=== PATIENT | male | born 1955 | race Caucasian/White ===

== ENCOUNTER → 2018-04-01 13:07 | Outpatient (CLI) | payer MEDICARE, MEDICAID, SELFPAY ==
[2018-04-01 15:02] LABS: Prostate Specific Antigen < 0.064 ng/mL (0.10-4.00); Testosterone 28.6 ng/dL (71.8-623)
== END ==
PROVIDERS: PCP Family Medicine; Visit Provider Physician Assistant
DX: C61 Malignant neoplasm of prostate (principal)
CPT/HCPCS: 36415; 84153; 84403

== ENCOUNTER → 2018-06-23 15:43 | Outpatient (CLI) | payer MEDICARE, MEDICAID, SELFPAY ==
[2018-06-23 17:51] LABS: Prostate Specific Antigen < 0.064 ng/mL (0.10-4.00)
== END ==
PROVIDERS: PCP Family Medicine; Visit Provider Radiology Radiation Oncology
DX: C61 Malignant neoplasm of prostate (principal)
CPT/HCPCS: 36415; 84153

== ENCOUNTER → 2018-10-02 11:12 | Outpatient (CLI) | payer MEDICARE, MEDICAID, SELFPAY ==
[2018-10-02 13:19] LABS: Testosterone 33.6 ng/dL (71.8-623)
[2018-10-02 13:21] LABS: Prostate Specific Antigen < 0.064 ng/mL (0.10-4.00)
== END ==
PROVIDERS: PCP Family Medicine; Visit Provider Physician Assistant
DX: C61 Malignant neoplasm of prostate (principal)
CPT/HCPCS: 36415; 84153; 84403

== ENCOUNTER → 2019-05-02 13:31 | Outpatient (CLI) | payer MEDICARE, MEDICAID, SELFPAY ==
[2019-05-02 14:34] LABS: Prostate Specific Antigen < 0.064 ng/mL (0.10-4.00)
== END ==
PROVIDERS: PCP Family Medicine; Visit Provider Urology
DX: C61 Malignant neoplasm of prostate (principal)
CPT/HCPCS: 36415; 84153

== ENCOUNTER → 2019-12-09 11:20 | Outpatient (CLI) | payer MEDICARE, MEDICAID, SELFPAY ==
[2019-12-09 13:43] LABS: Prostate Specific Antigen < 0.064 ng/mL (0.10-4.00)
[2019-12-09 13:44] LABS: Testosterone 33.4 ng/dL (71.8-623)
== END ==
PROVIDERS: PCP Family Medicine; Referring Provider Urology; Visit Provider Urology
DX: C61 Malignant neoplasm of prostate (principal)
CPT/HCPCS: 36415; 84153; 84403

== ENCOUNTER → 2020-03-12 10:20 | Outpatient (CLI) | payer MEDICARE, MEDICAID, SELFPAY ==
--- NOTE | 2020-03-12 | DI.RAD.S_ITS ---
PROCEDURE: XR ABDOMEN 1V INDICATIONS: renal calculus TECHNIQUE: One view of the abdomen acquired. COMPARISON: None. FINDINGS: This is a markedly limited study due to patient body habitus. Surgical changes and devices: None. Bowel: Bowel gas pattern is normal. Soft tissues: No suspicious abdominal calcifications. Visualized solid organ contours appear normal in size. Bones: No suspicious bony lesions. IMPRESSION: Limited study. No acute intra-abdominal findings. Dictated by: Ania Almeida M.D. on 03/12/2020 at 12:02 Approved by: Ania Almeida M.D. on 03/12/2020 at 12:02
== END ==
PROVIDERS: PCP Family Medicine; Referring Provider Urology; Visit Provider Urology
DX: N20.0 Calculus of kidney (principal)
CPT/HCPCS: 74018

== ENCOUNTER → 2020-03-23 10:16 | Outpatient (CLI) | payer MEDICARE, MEDICAID, SELFPAY ==
[2020-03-23 12:56] LABS: Prostate Specific Antigen < 0.064 ng/mL (0.10-4.00)
== END ==
PROVIDERS: PCP Family Medicine; Referring Provider Urology; Visit Provider Urology
DX: C61 Malignant neoplasm of prostate (principal)
CPT/HCPCS: 36415; 84153

== ENCOUNTER → 2020-06-26 16:35 | Outpatient (CLI) | payer MEDICARE, MEDICAID, SELFPAY ==
[2020-06-26 17:42] LABS: Add Manual Diff / Slide Review NO; Basophils Absolute Auto 0 /uL (0-100); Basophils Percent Auto 0.6 % (0-2); Eosinophils Absolute Auto 100 /uL (0-450); Eosinophils Percent Auto 1.3 % (2-4); Hematocrit 38.6 % (41-53); Hemoglobin 12.6 g/dL (13.5-17.5); Lymphocytes Absolute Auto 700 /uL (1100-4500); Lymphocytes Percent Auto 12.8 % (25-40); Mean Corpuscular HGB Conc 32.8 % (30-36); Mean Corpuscular Volume 94.5 fL (80-100); Monocytes Absolute Auto 400 /uL (0-900); Monocytes Percent Auto 7.9 % (3-14); Neutrophils Absolute Auto 4300 /uL (1500-7000); Neutrophils Percent Auto 77.4 % (50-75); Platelet Count 69 X10^3/uL (150-400); Red Blood Cell Count 4.09 X10^6/uL (4.5-5.9); Red Cell Distribution Width 16.7 % (11.6-14.8); White Blood Cell Count 5.5 X10^3/uL (4.5-11.0)
[2020-06-26 17:53] LABS: Alanine Aminotransferase 47 IU/L (<50); Albumin 4.2 g/dL (3.5-5.0); Albumin Globulin Ratio 1.2 (1.0-2.8); Alkaline Phosphatase 92 U/L (38-126); Aspartate Aminotransferase 47 IU/L (17-59); BUN Creatinine Ratio 12.3 (6-22); Bilirubin Total 1.3 mg/dL (0.2-1.3); Blood Urea Nitrogen 10 mg/dL (9-20); Calcium 9.9 mg/dL (8.4-10.2); Carbon Dioxide 30 mmol/L (22-32); Chloride 98 mmol/L (98-107); Cholesterol 199 mg/dL (140-199); Estimated Glomerular Filt Rate > 60.0 mL/min (>60); Globulin 3.4 g/dL (1.7-4.1); Glucose 108 mg/dL (80-110); HDL Cholesterol 37 mg/dL (40-60); HEMOLYSIS < 15 (0-50); LDL Cholesterol Calculated 145 mg/dL (<100); Lipase 71 U/L (23-300); Potassium 4.3 mmol/L (3.4-5.1); Sodium 137 mmol/L (137-145); Total Protein 7.6 g/dL (6.3-8.2); Triglycerides 86 mg/dL (35-150)
== END ==
PROVIDERS: PCP Internal Medicine; Referring Provider Internal Medicine; Visit Provider Internal Medicine
DX: I87.2 Venous insufficiency (chronic) (peripheral) (principal); J98.4 Other disorders of lung; Z13.1 Encounter for screening for diabetes mellitus; Z13.220 Encounter for screening for lipoid disorders; Z13.6 Encounter for screening for cardiovascular disorders; G62.9 Polyneuropathy, unspecified; E66.01 Morbid (severe) obesity due to excess calories
CPT/HCPCS: 36415; 80053; 80061; 83690; 84443; 85025

== ENCOUNTER → 2020-11-02 11:31 | Outpatient (CLI) | payer MEDICARE, MEDICAID, SELFPAY ==
[2020-11-02 13:04] LABS: Prostate Specific Antigen < 0.064 ng/mL (0.10-4.00)
== END ==
PROVIDERS: PCP Internal Medicine; Referring Provider Urology; Visit Provider Urology
DX: C61 Malignant neoplasm of prostate (principal)
CPT/HCPCS: 36415; 84153

== ENCOUNTER → 2021-04-29 13:12 | Outpatient (CLI) | payer MEDICARE, MEDICAID, SELFPAY ==
[2021-04-29 14:57] LABS: Prostate Specific Antigen < 0.064 ng/mL (0.10-4.00)
== END ==
PROVIDERS: PCP Internal Medicine; Referring Provider Urology; Visit Provider Urology
DX: C61 Malignant neoplasm of prostate (principal)
CPT/HCPCS: 36415; 84153

== ENCOUNTER → 2021-11-29 09:47 | Outpatient (CLI) | payer MEDICARE, MEDICAID, SELFPAY ==
[2021-11-29 12:31] LABS: Prostate Specific Antigen < 0.064 ng/mL (0.10-4.00)
== END ==
PROVIDERS: PCP Internal Medicine; Referring Provider Urology; Visit Provider Urology
DX: C61 Malignant neoplasm of prostate (principal)
CPT/HCPCS: 36415; 84153

== ENCOUNTER 2022-01-10 08:00 | Inpatient (IN) | payer MEDICARE, MEDICAID, SELFPAY ==
[2022-01-10] VITALS (19 sets, daily range): BP systolic 132–176; BP diastolic 64–85; PULSE 84–110; RESP 18–26; TEMP 36.3–36.4; O2SAT 92–98; BMI 59.9; BMI 58.6
--- NOTE | 2022-01-10 08:31 | ED_ITS ---
HPI - Abdominal Pain General Chief Complaint: Abdominal Pain Stated Complaint: Believes kidney stone, blood in urine, leg problem Time Seen by Provider: 01/10/22 08:07 Source: patient Mode of arrival: Wheelchair History of Present Illness HPI narrative: 66-year-old male nonsmoker with history of chronic venous insufficiency, prostate cancer, gout, BMI 59 presents with his in the chief complaint of various symptoms over the past few days. He has right back and flank pain and thinks he likely passed a kidney stone a few days ago. On Thursday night and Thursday morning he had fever and shaking chills and since then he has been w eak and nauseated. He denies epigastric pain. He denies any obvious provocation or palliation. He states that he feels that his eyes are yellowing over the past few days, he has a prior history of a common bile duct issue which required an ERCP. He denies any significant pain now, nor any nausea or vomiting. He has no runny nose or sore throat. He denies any chest pain or shortness of breath that is more than his baseline. He denies any dietary change. Additionally he has had a small wound on his right anterior forde for the past few weeks, he denies any drainage, increased redness or pain. Related Data Home Medications Medication Instructions Recorded Confirmed doxazosin 8 mg tablet 8 mg PO BEDTIME tab 06/26/20 01/10/22 oxybutynin chloride 5 mg 5 mg PO BEDTIME tab 06/26/20 01/10/22 tablet,extended release 24 hr ropinirole 2 mg tablet 2 mg PO BEDTIME tab 06/26/20 01/10/22 trazodone 50 mg tablet 50 mg PO DAILY tab 06/26/20 01/10/22 Previous Rx's Medication Instructions Recorded Disabled Parking #1 each 06/26/20 Allergies Allergy/AdvReac Type Severity Reaction Status Date / Time No Known Allergies Allergy Uncoded 07/24/20 11:14 Review of Systems Review of Systems Narrative: GENERAL: See HPI HEENT: Denies sinus pain, ear pain, sore throat, difficulty swallowing, dizziness. RESPIRATORY: Denies dyspnea, cough, wheezing, hemoptysis, sputum. CARDIOVASCULAR: Denies chest pain, palpitations, orthopnea, edema, GASTROINTESTINAL: See HPI : See HPI MUSCULOSKELETAL: denies weakness, joint pain, or bony pain SKIN: Denies rash, skin lesions, or other NEUROLOGIC: Denies weakness, headache, numbness, change in speech, confusion, seizures, incoordination. PSYCHIATRIC: No concerning psychosocial issues. 12 point review of systems is negative except for those stated above Patient History Medical History Chronic venous insufficiency (04/10/16) Eczema (~1996) Frequent UTI (~2017) 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) History of kidney stones History of prostate cancer (~2016) Lower urinary tract symptoms Mixed hyperlipidemia Morbid obesity (08/16/15) Obstructive sleep apnea of adult (~2013) Pancreatitis (~1995) Phimosis Primary insomnia (08/16/15) Recurrent sinusitis (~2007) Restless leg syndrome (~2013) Restrictive lung disease (08/16/15) Tinnitus (~1972) Surgical History Anesthesia History of common bile duct surgery (~1997) Status post knee surgery (~1993) Family History Brother Prostate cancer Liver cancer Father Parkinson disease Grandfather Hepatitis Grandfather History of heart disease Grandmother Cancer Social History household members: none Smoking Status: Never smoker Smoking Status: Never smoker Substance Use Type: does not use Exam Narrative Exam Narrative: GENERAL: [66] year old patient appears stated age. Well-developed patient, in mild distress. HEAD: Atraumatic. Normocephalic. EYES: Pupils equal round and reactive. Extraocular motions intact. No scleral icterus. No injection or drainage. ENT: Nose without bleeding, purulent drainage. Throat without erythema, tonsillar hypertrophy or exudate. Airway patent. NECK: Trachea midline. Non tender CARDIOVASCULAR: Regular rate and rhythm without murmurs, gallops, or rubs. RESPIRATORY: Clear to auscultation. Breath sounds equal bilaterally. No wheezes, rales, or rhonchi. GASTROINTESTINAL: Abdomen soft, non-tender, mildly distended. EXTREMITIES: Minimal edema with evidence of chronic venous stasis, a small 2 x 1 cm poorly healing ulcer on the anterior of right forde, no surrounding erythema, no drainage. BACK: Nontender without deformity or crepitance. No flank tenderness. NEURO: AOx3. SKIN: No rash or erythema of visible areas Initial Vital Signs Initial Vital Signs: Vital Signs Temperature 97.5 F L 01/10/22 08:05 Pulse Rate 107 H 01/10/22 08:05 Respiratory Rate 24 01/10/22 08:05 Blood Pressure 176/85 H 01/10/22 08:05 Pulse Oximetry 93 01/10/22 08:05 Course Course Additional Information: discussed with general surgery here at [facility]. Not a clearly obstructive process without any obvious indication of need for transfer evidenced and labs, particularly given normal alk-phos, and imaging. call to GI physician sales correspondent, who also agrees that there is no obvious indication for transfer or need for an obvious intervention at this time. discussed with Dr. Goldstein who is happy to accept on his service. Orders Ordered: ED Orders 01/10/22 08:20 Acetaminophen Stat Complete Blood Count AUTO DIFF Stat Comprehensive Metabolic Panel Stat Ethanol (ETOH) Stat Lactate (Lactic Acid) Stat Lipase Stat Procalcitonin Stat Troponin & CK Cardiac Panel Stat 01/10/22 08:32 US abdomen limited Stat 01/10/22 08:41 EKG-12 Lead Stat 01/10/22 09:00 COVID19 -Nasal swab/Pre-Proc Stat 01/10/22 09:07 Ictotest Urine Stat Urinalysis and Microscopic Stat Urine Culture Stat 01/10/22 09:20 Blood Culture Stat 01/10/22 09:25 CT abdomen pelvis w con Stat 01/10/22 10:55 Hepatitis Acute Panel Stat Bisacodyl (Bisacodyl 10 Mg Supp) 10 mg MO DAILY PRN PRN Reason: Constipation Doxazosin Mesylate (Doxazosin 4 Mg Tablet) 8 mg PO BEDTIME CHHAYA Hydromorphone HCl (Hydromorphone 0.5 Mg Inj) 0.5 mg IV Q2H PRN PRN Reason: Pain, Moderate (4-6) Lactated Ringer's (Lactated Ringers) 1,000 mls @ 150 mls/hr IV CONT CHHAYA Last Admin: 01/10/22 13:51 Dose: 150 mls/hr Documented by: NELI Ceftriaxone Sodium 2,000 mg/ (Sodium Chloride) 100 mls @ 200 mls/hr IV Q24H CHHAYA Magnesium Hydroxide (Magnesium Hydroxide 30 Ml Udc) 30 ml PO DAILY PRN PRN Reason: Constipation Naloxone HCl (Naloxone 0.4 Mg/Ml Vial) 0.2 mg IV Q2MIN PRN PRN Reason: Opiate Reversal Ondansetron HCl (Ondansetron 4 Mg/2 Ml Inj) 4 mg IV Q8HR PRN PRN Reason: Nausea And Vomiting Oxybutynin Chloride (Oxybutynin 5 Mg Er Tab) 5 mg PO BEDTIME CHHAYA Oxycodone HCl (Oxycodone Ir 5 Mg Tablet) 5 mg PO Q4HR PRN PRN Reason: Pain, Moderate (4-6) Last Admin: 01/10/22 15:03 Dose: 5 mg Documented by: ANDREI Ropinirole HCl (Ropinirole 1 Mg Tablet) 2 mg PO BEDTIME CHHAYA Trazodone HCl (Trazodone 50 Mg Tablet) 50 mg PO BEDTIME CHHAYA Discontinued Medications Hydromorphone HCl (Hydromorphone 0.5 Mg Inj) 0.5 mg IV NOW ONE Stop: 01/10/22 11:30 Last Admin: 01/10/22 12:02 Dose: 0.5 mg Documented by: CARMELO Sodium Chloride (Normal Saline 0.9%) 2,052 mls @ 684 mls/hr 30 ml/kg infuse over 3 hr (2052 ml) IV NOW ONE Stop: 01/10/22 11:31 Last Infusion: 01/10/22 13:12 Dose: 0 mls/hr Documented by: Admin: 01/10/22 09:21 Dose: 684 mls/hr Documented by: GARRETT Ceftriaxone Sodium 2,000 mg/ (Sodium Chloride) 100 mls @ 200 mls/hr IV NOW ONE Stop: 01/10/22 08:33 Last Infusion: 01/10/22 10:19 Dose: 0 mls/hr Documented by: Admin: 01/10/22 09:20 Dose: 200 mls/hr Documented by: GARRETT Vital Signs Vital signs: Vital Signs - 8 hr 01/10/22 08:05 01/10/22 08:09 01/10/22 08:30 Temperature 97.5 F L Pulse Rate 107 H 109 H 106 H Respiratory Rate 24 24 Blood Pressure 176/85 H 176/85 H 160/72 H Pulse Oximetry 93 92 95 01/10/22 09:00 01/10/22 09:30 01/10/22 09:31 Temperature Pulse Rate 106 H 106 H 107 H Respiratory Rate 24 24 Blood Pressure 157/75 H 162/69 H Pulse Oximetry 94 93 93 01/10/22 10:00 01/10/22 10:30 01/10/22 11:00 Temperature Pulse Rate 106 H 105 H 105 H Respiratory Rate 22 22 22 Blood Pressure Pulse Oximetry 98 98 97 01/10/22 11:30 01/10/22 11:31 01/10/22 12:00 Temperature Pulse Rate 110 H 110 H 107 H Respiratory Rate 24 24 Blood Pressure 140/72 150/69 H Pulse Oximetry 97 96 97 MDM - Abdominal Pain Lab Data Result diagrams: 01/10/22 08:20 01/10/22 08:20 Labs: Lab Results 01/10/22 01/10/22 01/10/22 Range/Units 08:20 08:20 08:20 WBC 2.1 L (4.5-11.0) X10^3/uL RBC 3.60 L (4.5-5.9) X10^6/uL Hgb 11.2 L (13.5-17.5) g/dL Hct 33.7 L (41-53) % MCV 93.7 (80-100) fL MCH 31.0 (26-34) PG MCHC 33.1 (30-36) % RDW 18.5 H (11.6-14.8) % Plt Count TNP Neut % (Auto) Not Reportable Lymph % (Auto) Not Reportable [place] % (Auto) Not Reportable Eos % (Auto) Not Reportable Baso % (Auto) Not Reportable Lymph # (Auto) Not Reportable [place] # (Auto) Not Reportable Baso # (Auto) Not Reportable Total Counted 100 Seg Neutrophils % 44.0 (38-70) % Band Neutrophils % 22.0 H (3-7) % Lymphocytes % (Manual) 20.0 L (25-45) % Atypical Lymphs % 2.0 H ( - 0) % Monocytes % (Manual) 12.0 H (2-11) % Neutrophils # (Manual) 1386 L (4319-5311) /uL Dohle Bodies 1+ H Platelet Estimate Adequate on smear RBC Morphology See below Anisocytosis 1+ H Sodium 137 (137-145) mmol/L Potassium 3.4 (3.4-5.1) mmol/L Chloride 105 (98-107) mmol/L Carbon Dioxide 25 (22-32) mmol/L BUN 16 (9-20) mg/dL Creatinine 0.71 (0.66-1.25) mg/dL Estimated GFR > 60.0 (>60) mL/min BUN/Creatinine Ratio 22.5 H (6-22) Glucose 123 H (80-110) mg/dL Lactate (0.7-2.1) mmol/L Calcium 8.6 (8.4-10.2) mg/dL Total Bilirubin 5.4 H (0.2-1.3) mg/dL AST 86 H (17-59) IU/L ALT 57 H (<50) IU/L Alkaline Phosphatase 113 (38-126) U/L Total Creatine Kinase 165 (55-170) U/L CK-MB (CK-2) 1.58 (<2.37) ng/mL CK-MB (CK-2) Rel Index 1.0 L (1.5-5.0) % Troponin I 0.013 (0.01-0.034) ng/mL Total Protein 7.2 (6.3-8.2) g/dL Albumin 3.4 L (3.5-5.0) g/dL Globulin 3.8 (1.7-4.1) g/dL Albumin/Globulin Ratio 0.9 L (1.0-2.8) Lipase 93 (23-300) U/L Procalcitonin 3.13 H (<0.5) ng/mL Urine Color Urine Appearance Urine pH (4.5-8.0) Ur Specific [place] (1.000-1.035) Urine Protein (Negative) Urine Glucose (UA) (Negative) g/dL Urine Ketones (NEGATIVE) Urine Occult Blood (Negative) Urine Nitrate (Negative) Urine Bilirubin (NEGATIVE) Ur Bilirubin Confirm (Negative) Urine Urobilinogen (0.2) E.U./dL Ur Leukocyte Esterase (NEGATIVE) Urine RBC (0-5/HPF) Urine WBC (0-5/HPF) Amorphous [place] Urine Bacteria (None) Ur Culture Indicated? Acetaminophen (10-30) ug/mL Ethyl Alcohol ( - 10) mg/dL SARS-CoV-2 (PCR) (Negative) 01/10/22 01/10/22 01/10/22 Range/Units 08:20 08:20 09:00 WBC (4.5-11.0) X10^3/uL RBC (4.5-5.9) X10^6/uL Hgb (13.5-17.5) g/dL Hct (41-53) % MCV (80-100) fL MCH (26-34) PG MCHC (30-36) % RDW (11.6-14.8) % Plt Count Neut % (Auto) Lymph % (Auto) [place] % (Auto) Eos % (Auto) Baso % (Auto) Lymph # (Auto) [place] # (Auto) Baso # (Auto) Total Counted Seg Neutrophils % (38-70) % Band Neutrophils % (3-7) % Lymphocytes % (Manual) (25-45) % Atypical Lymphs % ( - 0) % Monocytes % (Manual) (2-11) % Neutrophils # (Manual) (3002-6032) /uL Dohle Bodies Platelet Estimate RBC Morphology Anisocytosis Sodium (137-145) mmol/L Potassium (3.4-5.1) mmol/L Chloride (98-107) mmol/L Carbon Dioxide (22-32) mmol/L BUN (9-20) mg/dL Creatinine (0.66-1.25) mg/dL Estimated GFR (>60) mL/min BUN/Creatinine Ratio (6-22) Glucose (80-110) mg/dL Lactate 1.5 (0.7-2.1) mmol/L Calcium (8.4-10.2) mg/dL Total Bilirubin (0.2-1.3) mg/dL AST (17-59) IU/L ALT (<50) IU/L Alkaline Phosphatase (38-126) U/L Total Creatine Kinase (55-170) U/L CK-MB (CK-2) (<2.37) ng/mL CK-MB (CK-2) Rel Index (1.5-5.0) % Troponin I (0.01-0.034) ng/mL Total Protein (6.3-8.2) g/dL Albumin (3.5-5.0) g/dL Globulin (1.7-4.1) g/dL Albumin/Globulin Ratio (1.0-2.8) Lipase (23-300) U/L Procalcitonin (<0.5) ng/mL Urine Color Urine Appearance Urine pH (4.5-8.0) Ur Specific [place] (1.000-1.035) Urine Protein (Negative) Urine Glucose (UA) (Negative) g/dL Urine Ketones (NEGATIVE) Urine Occult Blood (Negative) Urine Nitrate (Negative) Urine Bilirubin (NEGATIVE) Ur Bilirubin Confirm (Negative) Urine Urobilinogen (0.2) E.U./dL Ur Leukocyte Esterase (NEGATIVE) Urine RBC (0-5/HPF) Urine WBC (0-5/HPF) Amorphous Sediment Urine Bacteria (None) Ur Culture Indicated? Acetaminophen < 10 (10-30) ug/mL Ethyl Alcohol < 10 ( - 10) mg/dL SARS-CoV-2 (PCR) Negative (Negative) 01/10/22 Range/Units 09:07 WBC (4.5-11.0) X10^3/uL RBC (4.5-5.9) X10^6/uL Hgb (13.5-17.5) g/dL Hct (41-53) % MCV (80-100) fL MCH (26-34) PG MCHC (30-36) % RDW (11.6-14.8) % Plt Count Neut % (Auto) Lymph % (Auto) [place] % (Auto) Eos % (Auto) Baso % (Auto) Lymph # (Auto) [place] # (Auto) Baso # (Auto) Total Counted Seg Neutrophils % (38-70) % Band Neutrophils % (3-7) % Lymphocytes % (Manual) (25-45) % Atypical Lymphs % ( - 0) % Monocytes % (Manual) (2-11) % Neutrophils # (Manual) (9495-1678) /uL Dohle Bodies Platelet Estimate RBC Morphology Anisocytosis Sodium (137-145) mmol/L Potassium (3.4-5.1) mmol/L Chloride (98-107) mmol/L Carbon Dioxide (22-32) mmol/L BUN (9-20) mg/dL Creatinine (0.66-1.25) mg/dL Estimated GFR (>60) mL/min BUN/Creatinine Ratio (6-22) Glucose (80-110) mg/dL Lactate (0.7-2.1) mmol/L Calcium (8.4-10.2) mg/dL Total Bilirubin (0.2-1.3) mg/dL AST (17-59) IU/L ALT (<50) IU/L Alkaline Phosphatase (38-126) U/L Total Creatine Kinase (55-170) U/L CK-MB (CK-2) (<2.37) ng/mL CK-MB (CK-2) Rel Index (1.5-5.0) % Troponin I (0.01-0.034) ng/mL Total Protein (6.3-8.2) g/dL Albumin (3.5-5.0) g/dL Globulin (1.7-4.1) g/dL Albumin/Globulin Ratio (1.0-2.8) Lipase (23-300) U/L Procalcitonin (<0.5) ng/mL Urine Color [place] Urine Appearance Cloudy Urine pH 7.5 (4.5-8.0) Ur Specific [place] 1.015 (1.000-1.035) Urine Protein 2+ H (Negative) Urine Glucose (UA) Trace H (Negative) g/dL Urine Ketones Trace H (NEGATIVE) Urine Occult Blood 1+ H (Negative) Urine Nitrate Positive H (Negative) Urine Bilirubin 2+ H (NEGATIVE) Ur Bilirubin Confirm Positive H (Negative) Urine Urobilinogen 4.0 H (0.2) E.U./dL Ur Leukocyte Esterase 3+ H (NEGATIVE) Urine RBC 0-1/hpf (0-5/HPF) Urine WBC 30-100/hpf H (0-5/HPF) Amorphous Sediment 2+ Urine Bacteria Many (>30) H (None) Ur Culture Indicated? Specimen cultured Acetaminophen (10-30) ug/mL Ethyl Alcohol ( - 10) mg/dL SARS-CoV-2 (PCR) (Negative) Imaging Data CT scan - abdomen/pelvis: Radiologist's Impression: [address] [address] [address] Scan Report Signed Patient: Jose Francisco Akers MR#: [id number] : 1955 Acct:[id number] Age/Sex: 66 / M Date of Service: 01/10/22 Loc: ED Accession Number: [id number] ?? Procedure: CT abdomen pelvis w con Ordering Provider: Samuel Burk D.O. PROCEDURE:? CT ABDOMEN PELVIS W CON ? INDICATIONS:? RUQ pain, flank pain, elevated bili, ? TECHNIQUE:? After the administration of oral and IV contrast, axial sections were acquired from the lung bases to the pubic symphysis.? Coronal and sagittal reformats were performed.? For radiation dose reduction, the following was used:? automated exposure control, adjustment of mA and/or kV according to patient size. ? COMPARISON:? [facility], CT, ABDOMEN/PELVIS WITH CONTRAST, 01/29/2017, 10:49. ? FINDINGS:? Image quality:? Fair.? ? Lung bases:? No pleural effusion.? ? Heart:? Coronary artery calcifications. ? ? ABDOMEN: Liver:? Hepatic steatosis.? Prominent right lobe of the liver. Gallbladder:? Not distended. Biliary ducts:? Unremarkable.? ? Pancreas:? Unremarkable.? ? Spleen:? Splenomegaly measuring approximately 15.9 cm.? ? Adrenal Glands:? No nodule.? ? Kidneys and Ureters:? No hydronephrosis.? Nonobstructing left kidney stones x 3.? Largest measuring 0.8 cm. ? Stomach and Bowel:? Stomach, small bowel loops, and colon are unremarkable.? Diverticulosis.? No diverticulitis appreciated.? The appendix is not dilated. Peritoneum:? No abnormal intraperitoneal fluid.? No free air.? ? Ventral Wall: ? No hernia.? Abdominal Nodes:? No retroperitoneal or mesenteric adenopathy by size criteria.? Vessels:? Aorta and inferior vena cava are normal in size.? ? PELVIS: Pelvic Organs:? Prostate fiducial markers.? ? Bladder:? No stone.? ? Pelvic Nodes: No enlarged lymph nodes.? Miscellaneous: No inguinal hernias are seen. ? ? ? Bones:? No aggressive appearing lesion.? Bone island in the right ilium is un changed. ? ? IMPRESSION:? 1. Diverticulosis.? No diverticulitis.? No free fluid.? No small bowel obs truction. ? 2. No hydronephrosis.? Left kidney nonobstructing kidney stones x3. ? 3. Hepatic steatosis. ? ? Dictated by: Allen Muñoz M.D. on 01/10/2022 at 9:51 ? ? Approved by: Allen Muñoz M.D. on 01/10/2022 at 9:58 ? Discharge Plan Departure Patient Disposition: Admitted As Inpatient Clinical Impression: Sepsis, Acute UTI, Cholestatic hepatitis Admit Date/Time: 01/10/22 12:01 Admit Provider: Vince Goldstein
--- NOTE | 2022-01-10 08:32 | DI.US.S_ITS ---
PROCEDURE: US ABDOMEN LIMITED INDICATIONS: RUQ/FLANK PAIN; JAUNDICE TECHNIQUE: Real-time focused scanning was performed of the abdomen, with image documentation. COMPARISON: None. FINDINGS: Mildly enlarged liver measuring up to 22 centimeters maximum transverse dimension. Markedly increased hepatic parenchymal echogenicity. No focal hepatic mass. No hepatic contour nodularity identified. Contracted gallbladder containing numerous shadowing gallstones. No gallbladder wall thickening or pericholecystic fluid. Visualized portions of the pancreas are normal. No intrahepatic or extrahepatic biliary ductal dilatation. Right kidney is unremarkable. IMPRESSION: Severe hepatic steatosis. Cholelithiasis without findings of cholecystitis. Dictated by: Abdi Bhatia M.D. on 01/10/2022 at 10:23 Approved by: Abdi Bhatia M.D. on 01/10/2022 at 10:25
[2022-01-10 08:37] LABS: Hematocrit 33.7 % (41-53); Hemoglobin 11.2 g/dL (13.5-17.5); Mean Corpuscular HGB Conc 33.1 % (30-36); Mean Corpuscular Volume 93.7 fL (80-100); Red Cell Distribution Width 18.5 % (11.6-14.8)
[2022-01-10 08:38] LABS: Lactate (Lactic Acid) 1.5 mmol/L (0.7-2.1)
[2022-01-10 08:39] LABS: Alanine Aminotransferase 57 IU/L (<50); Albumin 3.4 g/dL (3.5-5.0); Albumin Globulin Ratio 0.9 (1.0-2.8); Alkaline Phosphatase 113 U/L (38-126); Aspartate Aminotransferase 86 IU/L (17-59); BUN Creatinine Ratio 22.5 (6-22); Bilirubin Total 5.4 mg/dL (0.2-1.3); Blood Urea Nitrogen 16 mg/dL (9-20); Calcium 8.6 mg/dL (8.4-10.2); Carbon Dioxide 25 mmol/L (22-32); Chloride 105 mmol/L (98-107); Creatine Kinase 165 U/L (55-170); Estimated Glomerular Filt Rate > 60.0 mL/min (>60); Globulin 3.8 g/dL (1.7-4.1); Glucose 123 mg/dL (80-110); HEMOLYSIS < 15 (0-50); Lipase 93 U/L (23-300); Potassium 3.4 mmol/L (3.4-5.1); Sodium 137 mmol/L (137-145); Total Protein 7.2 g/dL (6.3-8.2)
[2022-01-10 08:42] LABS: Add Manual Diff / Slide Review YES; White Blood Cell Count 2.1 X10^3/uL (4.5-11.0)
[2022-01-10 08:51] LABS: Troponin I 0.013 ng/mL (0.01-0.034)
[2022-01-10 08:54] LABS: Creatine Kinase MB 1.58 ng/mL (<2.37)
[2022-01-10 08:55] LABS: Procalcitonin 3.13 ng/mL (<0.5)
[2022-01-10 09:07] LABS: Neutrophils Absolute Manual 1386 /uL (3000-5900); Total Cells Counted 100
[2022-01-10 09:10] LABS: Anisocytosis 1+; Dohle Bodies 1+; Platelet Estimate Adequate on smear
[2022-01-10 09:15] LABS: Appearance Urine UA CLOUDY; Bilirubin Urine UA 2+ (NEGATIVE); Color Urine UA ORANGE; Glucose Urine UA TRACE g/dL (Negative); Ketones Urine UA TRACE (NEGATIVE); Leukocyte Esterase Urine UA 3+ (NEGATIVE); Nitrite Urine UA POSITIVE (Negative); Occult Blood Urine UA 1+ (Negative); Protein Urine UA 2+ (Negative); Specific Gravity Urine UA 1.015 (1.000-1.035); pH Urine UA 7.5 (4.5-8.0)
[2022-01-10] MEDS: cefTRIAXone 2,000 MG in SODIUM CHLORIDE 0.9% 100 ML 200 ML IV (09:20)
[2022-01-10] MEDS: SODIUM CHLORIDE 0.9% 2,052 ML 684 ML IV (09:21)
[2022-01-10 09:22] LABS: Amorphous Sediment Urine 2+; Bacteria Urine Many (>30); Culture Indicated Urine Specimen Cultured; RBC Urine 0-1/HPF (0-5/HPF); WBC Urine 30-100/HPF (0-5/HPF)
--- NOTE | 2022-01-10 09:25 | DI.CT.S_ITS ---
PROCEDURE: CT ABDOMEN PELVIS W CON INDICATIONS: RUQ pain, flank pain, elevated bili, TECHNIQUE: After the administration of oral and IV contrast, axial sections were acquired from the lung bases to the pubic symphysis. Coronal and sagittal reformats were performed. For radiation dose reduction, the following was used: automated exposure control, adjustment of mA and/or kV according to patient size. COMPARISON: [facility], CT, ABDOMEN/PELVIS WITH CONTRAST, 01/29/2017, 10:49. FINDINGS: Image quality: Fair. Lung bases: No pleural effusion. Heart: Coronary artery calcifications. ABDOMEN: Liver: Hepatic steatosis. Prominent right lobe of the liver. Gallbladder: Not distended. Biliary ducts: Unremarkable. Pancreas: Unremarkable. Spleen: Splenomegaly measuring approximately 15.9 cm. Adrenal Glands: No nodule. Kidneys and Ureters: No hydronephrosis. Nonobstructing left kidney stones x 3. Largest measuring 0.8 cm. Stomach and Bowel: Stomach, small bowel loops, and colon are unremarkable. Diverticulosis. No diverticulitis appreciated. The appendix is not dilated. Peritoneum: No abnormal intraperitoneal fluid. No free air. Ventral Wall: No hernia. Abdominal Nodes: No retroperitoneal or mesenteric adenopathy by size criteria. Vessels: Aorta and inferior vena cava are normal in size. PELVIS: Pelvic Organs: Prostate fiducial markers. Bladder: No stone. Pelvic Nodes: No enlarged lymph nodes. Miscellaneous: No inguinal hernias are seen. Bones: No aggressive appearing lesion. Bone island in the right ilium is unchanged. IMPRESSION: 1. Diverticulosis. No diverticulitis. No free fluid. No small bowel obstruction. 2. No hydronephrosis. Left kidney nonobstructing kidney stones x3. 3. Hepatic steatosis. Dictated by: Allen Muñoz M.D. on 01/10/2022 at 9:51 Approved by: Allen Muñoz M.D. on 01/10/2022 at 9:58
[2022-01-10 09:33] LABS: COVID19 -Nasal RAPID Negative (Negative)
[2022-01-10 09:46] LABS: Ictotest Urine Positive (Negative)
[2022-01-10] MEDS: HYDROMORPHONE 0.5 MG INJ IV ×3 (12:02→21:20)
--- NOTE | 2022-01-10 12:13 | P.HP_ITS ---
History of Present Illness History of Present Illness Date Patient Seen: 01/10/22 Time Patient Seen: 12:14 Chief complaint: Believes kidney stone, blood in urine, leg problem Narrative: 66-year-old male whom I have seen on only 2 other occasions, most recently in July 2020, who presented to [facility] Emergency Department on day of admission with right-sided back and flank pain thinking he had a kidney stone. Symptoms began 2 maybe 3 days prior to admission with some significant urinary pain and discomfort followed by hematuria. He then developed the right-sided flank and back pain that he is currently complaining of as well. He then developed fever to 101+ the lasted for several hours seem to diminish then returned the next day. He also began to notice that he is becoming somewhat jaundiced her turning yellow. He family decided based on input from family members that he finally should seek care and was brought to the emergency department Denies any epigastric or abdominal pain in the anterior area. Has had issues with his bile duct previously in required an ERCP (none of the details are available) (this appears to be in 1996) Patient with some element of chronic lung disease as baseline shortness of breath and is morbidly obese and has issues around that as well but nothing new or different in that regard. Appetite been diminished Patient History Medical History Chronic venous insufficiency (04/10/16) Eczema (~1996) Frequent UTI (~2017) 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) History of kidney stones History of prostate cancer (~2016) Lower urinary tract symptoms Mixed hyperlipidemia Morbid obesity (08/16/15) Obstructive sleep apnea of adult (~2013) Pancreatitis (~1995) Phimosis Primary insomnia (08/16/15) Recurrent sinusitis (~2007) Restless leg syndrome (~2013) Restrictive lung disease (08/16/15) Tinnitus (~1972) Surgical History Anesthesia History of common bile duct surgery (~1997) Status post knee surgery (~1993) Family & Social History Family History Brother Prostate cancer Liver cancer Father Parkinson disease Grandfather Hepatitis Grandfather History of heart disease Grandmother Cancer Safety & Behavioral: Feels Safe in Current Yes Environment Been Physically Hurt or No Threatened By a Person Tobacco & Substance use: Smoking Status Never smoker Substance Use Type does not use Meds Home Medications and Allergies Home Medications Medication Instructions Recorded Confirmed Type Disabled Parking #1 each 06/26/20 07/24/20 Rx doxazosin 8 mg tablet 8 mg PO BEDTIME tab 06/26/20 01/10/22 History oxybutynin chloride 5 mg 5 mg PO BEDTIME tab 06/26/20 01/10/22 History tablet,extended release 24 hr ropinirole 2 mg tablet 2 mg PO BEDTIME tab 06/26/20 01/10/22 History trazodone 50 mg tablet 50 mg PO DAILY tab 06/26/20 01/10/22 History Allergies Allergy/AdvReac Type Severity Reaction Status Date / Time No Known Allergies Allergy Uncoded 07/24/20 11:14 Exam Vital Signs (past 8 hours): - 01/10/22 08:05 01/10/22 08:09 01/10/22 08:30 Temperature 97.5 F L Pulse Rate 107 H 109 H 106 H Respiratory Rate 24 24 Blood Pressure 176/85 H 176/85 H 160/72 H Pulse Oximetry 93 92 95 01/10/22 09:00 01/10/22 09:30 01/10/22 09:31 Temperature Pulse Rate 106 H 106 H 107 H Respiratory Rate 24 24 Blood Pressure 157/75 H 162/69 H Pulse Oximetry 94 93 93 01/10/22 10:00 01/10/22 10:30 01/10/22 11:00 Temperature Pulse Rate 106 H 105 H 105 H Respiratory Rate 22 22 22 Blood Pressure Pulse Oximetry 98 98 97 01/10/22 11:30 01/10/22 11:31 Temperature Pulse Rate 110 H 110 H Respiratory Rate 24 Blood Pressure 140/72 Pulse Oximetry 97 96 Oxygen Delivery Method Room Air Narrative Exam Narrative: Obese male in no obvious distress sitting up in hospital bed HEENT-normocephalic atraumatic PERRLA EOMs intact, need be some scleral icterus difficult to be sure under the fluorescent lights of the room Neck-no bruits Lungs-clear with good breath sounds Heart-regular rate and rhythm Abdomen-positive bowel tones no tenderness rebound or guarding. Size limits his exam significantly. Maybe some slight right flank tenderness to palpation Extremities-wound right anterior tibial area with surrounding erythema and early eschar formation Objective Labs Result Diagrams: 01/10/22 08:20 01/10/22 08:20 Labs: Laboratory Results - last 24 hr 01/10/22 01/10/22 01/10/22 08:20 08:20 08:20 WBC 2.1 L RBC 3.60 L Hgb 11.2 L Hct 33.7 L MCV 93.7 MCH 31.0 MCHC 33.1 RDW 18.5 H Plt Count TNP Neut % (Auto) Not Reportable Lymph % (Auto) Not Reportable [place] % (Auto) Not Reportable Eos % (Auto) Not Reportable Baso % (Auto) Not Reportable Lymph # (Auto) Not Reportable [place] # (Auto) Not Reportable Baso # (Auto) Not Reportable Total Counted 100 Seg Neutrophils % 44.0 Band Neutrophils % 22.0 H Lymphocytes % (Manual) 20.0 L Atypical Lymphs % 2.0 H Monocytes % (Manual) 12.0 H Neutrophils # (Manual) 1386 L Dohle Bodies 1+ H Platelet Estimate Adequate on smear RBC Morphology See below Anisocytosis 1+ H Sodium 137 Potassium 3.4 Chloride 105 Carbon Dioxide 25 BUN 16 Creatinine 0.71 Estimated GFR > 60.0 BUN/Creatinine Ratio 22.5 H Glucose 123 H Lactate Calcium 8.6 Total Bilirubin 5.4 H AST 86 H ALT 57 H Alkaline Phosphatase 113 Total Creatine Kinase 165 CK-MB (CK-2) 1.58 CK-MB (CK-2) Rel Index 1.0 L Troponin I 0.013 Total Protein 7.2 Albumin 3.4 L Globulin 3.8 Albumin/Globulin Ratio 0.9 L Lipase 93 Procalcitonin 3.13 H Urine Color Urine Appearance Urine pH Ur Specific [place] Urine Protein Urine Glucose (UA) Urine Ketones Urine Occult Blood Urine Nitrate Urine Bilirubin Ur Bilirubin Confirm Urine Urobilinogen Ur Leukocyte Esterase Urine RBC Urine WBC Amorphous Sediment Urine Bacteria Ur Culture Indicated? SARS-CoV-2 (PCR) 01/10/22 01/10/22 01/10/22 08:20 09:00 09:07 WBC RBC Hgb Hct MCV MCH MCHC RDW Plt Count Neut % (Auto) Lymph % (Auto) [place] % (Auto) Eos % (Auto) Baso % (Auto) Lymph # (Auto) [place] # (Auto) Baso # (Auto) Total Counted Seg Neutrophils % Band Neutrophils % Lymphocytes % (Manual) Atypical Lymphs % Monocytes % (Manual) Neutrophils # (Manual) Dohle Bodies Platelet Estimate RBC Morphology Anisocytosis Sodium Potassium Chloride Carbon Dioxide BUN Creatinine Estimated GFR BUN/Creatinine Ratio Glucose Lactate 1.5 Calcium Total Bilirubin AST ALT Alkaline Phosphatase Total Creatine Kinase CK-MB (CK-2) CK-MB (CK-2) Rel Index Troponin I Total Protein Albumin Globulin Albumin/Globulin Ratio Lipase Procalcitonin Urine Color [place] Urine Appearance Cloudy Urine pH 7.5 Ur Specific [place] 1.015 Urine Protein 2+ H Urine Glucose (UA) Trace H Urine Ketones Trace H Urine Occult Blood 1+ H Urine Nitrate Positive H Urine Bilirubin 2+ H Ur Bilirubin Confirm Positive H Urine Urobilinogen 4.0 H Ur Leukocyte Esterase 3+ H Urine RBC 0-1/hpf Urine WBC 30-100/hpf H Amorphous Sediment 2+ Urine Bacteria Many (>30) H Ur Culture Indicated? Specimen cultured SARS-CoV-2 (PCR) Negative Assessment & Plan Assessment & Plan narrative: 1. GI-patient with elevation of bilirubin notably at 5+. Transaminases are also elevated although minimally so. Alkaline phosphatase is normal. CT scan shows some sludge within the gallbladder but no evidence of ductal dilatation neither of the common bile duct or inter hepatic. Patient does show evidence of chronic liver disease on CT imaging. General surgery was consulted over the phone did not feel like this was an active biliary tract or gallbladder issue. GI was consulted over the phone as well who also felt like this not active disease process within the common bile duct he does have some sort of inflammatory hepatitis with steatosis obviously but of unclear etiology. This point perhaps this is more related to whatever other infectious disease etiologies ongoing. Would presume that treatment with IV fluids and antibiotics will improve this as well and will continue to monitor carefully for evidence of any more significant intrinsic biliary tract disease 2. Infectious disease-patient does have abnormal urine and probably has a significant UTI causing some degree of above issues. Patient may even have an element of pyelonephritis based on his presenting story as well as minimal findings on exam today. He may well have passed a kidney stone and may have bit of a postobstructive process ongoing here but that is not clearly evident on CT imaging either. I think his size probably limits the sensitivity of CT scan imaging however. Patient was placed on third generation cephalosporin emergency department will continue that for now until culture results from both urine and blood can be re-evaluated Patient also has a wound in the right pretibial area that looks like may have minimal infection. Certainly not a source of serious infection I think at this time 3. -patient with history of prostate cancer with significant issues post tr eatment. He is on both doxazosin oxybutynin to help control of his urinary tract as well as a history of kidney stones. Continue his usual medications for now. Again awaiting results of urine culture 4. Restless leg syndrome-continue patient's usual medication 5. Restrictive lung disease-patient followed at [facility] for this, thought to be if anything most related to his obesity. I do not believe he has been seen any time recently. Not requiring oxygen any specific intervention or treatment but merely complaining of dyspnea with exertion which appears to be stable over time. He is not hypoxic at this time 6. Hematology-patient with a leukopenia as well as clumping of platelets and m ild anemia. Patient has been anemic previously but not quite to this degree. Will need to repeat CBC and follow carefully probably related to infectious disease issues 7. Code status-patient requests no code do not resuscitate in the event of a sudden cardiac or respiratory arrest. He has a modestly poor quality of life currently and knows that it would not be any better if he were to have such an event. 8. VTE prophylaxis-patient will have SCDs placed. Given his abnormality of his CBC including his platelets I am hesitant to give him Lovenox at this time. Continue monitor and if evidence of improvement consider this for the future Overall patient is significantly ill with multiple abnormalities as above. He requires inpatient hospitalization for parental antibiotics and careful monitoring. He will be in the hospital greater than 48 hours to include 2 separate midnights at least. Time Spent With Patient Critical Care time: I spent a total of [] minutes of critical care time on this patient's care to day; this time is exclusive of procedural time.
[2022-01-10 13:13] LABS: Acetaminophen < 10 ug/mL (10-30); Ethanol (ETOH) < 10 mg/dL
[2022-01-10] MEDS: LACTATED RINGERS 1,000 ML 150 ML IV ×2 (13:51→20:50)
[2022-01-10] MEDS: OXYCODONE IR 5 MG TABLET PO ×2 (15:03→19:51)
--- NOTE | 2022-01-10 15:19 | PC.ADMIT ---
Addendum entered by Jaky Bowen R.N. 01/10/22 16:56: 1700-Oxycodone has been ineffective for pain control to R flank. Request from Dr Goldstein additional pain control and advanced diet from full liquid. Patient has been rating pain 6/10 after mediication. Denies nausea at present. IVF infusing. Using call light for needs. Original Note: [email or web address] Admission Note:Pt arrived from ER, able to ambulate a few steps to bed in room. Reports dribbling urine, and odor to urine. Afebrile. PIV access and LR infusing per emar, Pt reports worsening pain to R flank, medicated with oxycodone. The patient,Jose Francisco Akers,66 y/o, was given written information regarding hospital policies, unit procedures and contact persons. Patient's smoking status: Never smoker. Vital Signs - 8 hr 01/10/22 08:05 01/10/22 08:09 01/10/22 08:30 Temperature 97.5 F L Pulse Rate 107 H 109 H 106 H Respiratory Rate 24 24 Blood Pressure 176/85 H 176/85 H 160/72 H Pulse Oximetry 93 92 95 01/10/22 09:00 01/10/22 09:30 01/10/22 09:31 Temperature Pulse Rate 106 H 106 H 107 H Respiratory Rate 24 24 Blood Pressure 157/75 H 162/69 H Pulse Oximetry 94 93 93 01/10/22 10:00 01/10/22 10:30 01/10/22 11:00 Temperature Pulse Rate 106 H 105 H 105 H Respiratory Rate 22 22 22 Blood Pressure Pulse Oximetry 98 98 97 01/10/22 11:30 01/10/22 11:31 01/10/22 12:00 Temperature Pulse Rate 110 H 110 H 107 H Respiratory Rate 24 24 Blood Pressure 140/72 150/69 H Pulse Oximetry 97 96 97 01/10/22 12:30 01/10/22 13:00 01/10/22 13:30 Temperature 97.5 F L Pulse Rate 100 H 104 H 93 H Respiratory Rate 24 26 H 20 Blood Pressure 134/73 136/77 142/78 H Pulse Oximetry 96 96 96
[2022-01-10] MEDS: OXYBUTYNIN 5 MG ER TAB PO (21:04)
[2022-01-10] MEDS: TRAZODONE 50 MG TABLET PO (21:04)
[2022-01-10] MEDS: ROPINIROLE 1 MG TABLET 2 MG PO (21:04)
[2022-01-10] MEDS: DOXAZOSIN 4 MG TABLET 8 MG PO (21:06)
[2022-01-11] VITALS (7 sets, daily range): BP systolic 116–131; BP diastolic 58–71; PULSE 92–105; RESP 18–20; TEMP 35.6–36.9; O2SAT 90–97
[2022-01-11] MEDS: LACTATED RINGERS 1,000 ML 150 ML IV (03:21)
[2022-01-11 05:38] LABS: Alanine Aminotransferase 54 IU/L (<50); Albumin 3.1 g/dL (3.5-5.0); Albumin Globulin Ratio 0.9 (1.0-2.8); Alkaline Phosphatase 107 U/L (38-126); Aspartate Aminotransferase 67 IU/L (17-59); BUN Creatinine Ratio 16.9 (6-22); Bilirubin Conjugated 0.8 md/dL (0.0-0.3); Bilirubin Total 2.9 mg/dL (0.2-1.3); Bilirubin Unconjugated 1.1 mg/dL (0.0-1.1); Blood Urea Nitrogen 12 mg/dL (9-20); Calcium 8.4 mg/dL (8.4-10.2); Carbon Dioxide 26 mmol/L (22-32); Chloride 105 mmol/L (98-107); Estimated Glomerular Filt Rate > 60.0 mL/min (>60); Globulin 3.5 g/dL (1.7-4.1); Glucose 123 mg/dL (80-110); HEMOLYSIS < 15 (0-50); Sodium 136 mmol/L (137-145); Total Protein 6.6 g/dL (6.3-8.2)
[2022-01-11 05:52] LABS: HBsAg Screen Negative (Negative); Hepatitis A Antibody IgM Negative (Negative); Hepatitis B Core Antibody IgM Negative (Negative); Hepatitis C Antibody <0.1 s/co ratio (0.0-0.9)
[2022-01-11 05:57] LABS: Hemoglobin 10.3 g/dL (13.5-17.5); Mean Corpuscular HGB Conc 33.2 % (30-36); Mean Corpuscular Hemoglobin 31.3 PG (26-34); Mean Corpuscular Volume 94.2 fL (80-100); Red Blood Cell Count 3.29 X10^6/uL (4.5-5.9); Red Cell Distribution Width 19.1 % (11.6-14.8)
[2022-01-11 06:01] LABS: Add Manual Diff / Slide Review YES
[2022-01-11 06:40] LABS: Neutrophils Absolute Manual 2130 /uL (3000-5900); Total Cells Counted 100
[2022-01-11 06:41] LABS: Anisocytosis 1+; Rouleaux 1+
[2022-01-11 06:44] LABS: Platelet Estimate Decreased on smear
[2022-01-11] MEDS: OXYCODONE IR 5 MG TABLET PO ×2 (07:35→16:08)
[2022-01-11] MEDS: cefTRIAXone 2,000 MG in SODIUM CHLORIDE 0.9% 100 ML 200 ML IV (07:46)
--- NOTE | 2022-01-11 09:47 | PM.PN.1 ---
Subjective Subjective Date Patient Seen: 01/11/22 Time Patient Seen: 09:47 Interval history: Patient with a relatively uneventful evening and night. Slept well he says. No new complaints issues or problems. Struggling a bit with the bed because of his size Sitting up in the chair at the moment. Feels like he is a bit better rested Is on oxygen at 3 L maintaining saturation at 95-97% Exam Vital Signs (past 8 hours): Oxygen Delivery Method Nasal Cannula Oxygen Flow Rate 3 Narrative Exam Narrative: Obese male sitting up in a bedside chair HEENT-unremarkable Lungs-very decreased breath sounds no wheezes or crackles Heart-regular rate and rhythm Abdomen-benign, obese Objective Labs Result Diagrams: 01/11/22 05:00 01/11/22 05:00 Labs: Laboratory Results - last 24 hr 01/10/22 01/10/22 01/11/22 08:20 16:51 05:00 WBC 3.0 L RBC 3.29 L Hgb 10.3 L Hct 31.0 L MCV 94.2 MCH 31.3 MCHC 33.2 RDW 19.1 H Plt Count TNP Neut % (Auto) Not Reportable Lymph % (Auto) Not Reportable [place] % (Auto) Not Reportable Eos % (Auto) Not Reportable Baso % (Auto) Not Reportable Lymph # (Auto) Not Reportable [place] # (Auto) Not Reportable Baso # (Auto) Not Reportable Total Counted 100 Seg Neutrophils % 55.0 Band Neutrophils % 16.0 H Lymphocytes % (Manual) 15.0 L Atypical Lymphs % 3.0 H Monocytes % (Manual) 11.0 Neutrophils # (Manual) 2130 L Platelet Estimate Decreased on smear RBC Morphology See below Anisocytosis 1+ H [place]le[place] 1+ H Sodium Potassium Chloride Carbon Dioxide BUN Creatinine Estimated GFR BUN/Creatinine Ratio Glucose Calcium Total Bilirubin Conjugated Bilirubin Unconjugated Bilirubin AST ALT Alkaline Phosphatase Total Protein Albumin Globulin Albumin/Globulin Ratio Acetaminophen < 10 Ethyl Alcohol < 10 Hepatitis A IgM Ab Negative Hep Bs Antigen Negative Hep B Core IgM Ab Negative Hepatitis C Antibody <0.1 Hep C Ab Signal/Cutoff Comment 01/11/22 05:00 WBC RBC Hgb Hct MCV MCH MCHC RDW Plt Count Neut % (Auto) Lymph % (Auto) [place] % (Auto) Eos % (Auto) Baso % (Auto) Lymph # (Auto) [place] # (Auto) Baso # (Auto) Total Counted Seg Neutrophils % Band Neutrophils % Lymphocytes % (Manual) Atypical Lymphs % Monocytes % (Manual) Neutrophils # (Manual) Platelet Estimate RBC Morphology Anisocytosis [place] Sodium 136 L Potassium 4.0 Chloride 105 Carbon Dioxide 26 BUN 12 Creatinine 0.71 Estimated GFR > 60.0 BUN/Creatinine Ratio 16.9 Glucose 123 H Calcium 8.4 Total Bilirubin 2.9 H Conjugated Bilirubin 0.8 H Unconjugated Bilirubin 1.1 AST 67 H ALT 54 H Alkaline Phosphatase 107 Total Protein 6.6 Albumin 3.1 L Globulin 3.5 Albumin/Globulin Ratio 0.9 L Acetaminophen Ethyl Alcohol Hepatitis A IgM Ab Hep Bs Antigen Hep B Core IgM Ab Hepatitis C Antibody Hep C Ab Signal/Cutoff [facility] Medical History Chronic venous insufficiency (04/10/16) Eczema (~1996) Frequent UTI (~2017) 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) History of kidney stones History of prostate cancer (~2016) Lower urinary tract symptoms Mixed hyperlipidemia Morbid obesity (08/16/15) Obstructive sleep apnea of adult (~2013) Pancreatitis (~1995) Phimosis Primary insomnia (08/16/15) Recurrent sinusitis (~2007) Restless leg syndrome (~2013) Restrictive lung disease (08/16/15) Tinnitus (~1972) Surgical History Anesthesia History of common bile duct surgery (~1997) Status post knee surgery (~1993) Family History Brother Prostate cancer Liver cancer Father Parkinson disease Grandfather Hepatitis Grandfather History of heart disease Grandmother Cancer Social History household members: none Smoking Status: Never smoker Assessment & Plan Assessment & Plan narrative: 1. GI-patient's LFTs and bilirubin are improved this morning. I believe this is secondary response to what I believe now to be probable pyelonephritis. Continue to monitor for now but do not believe this is a primary GI issue 2. ID-patient growing Gram-negative rods from his urine. I believe he has pyelonephritis as a source of his infection. Continue with the broad-spectrum IV antibiotics until we have identified organism. Patient does relate a history of intermittent urinary tract symptoms about once every 2 weeks. He says he has discussed this with Urology did not have any particular intervention. Do not have any notes to support that. I am going to treat him as though he had pyelonephritis with at least 2 weeks of antibiotic therapy and given his on and off symptoms perhaps consider a low-dose antibiotic for additional 30 days and probably get him back to Urology for thoughts regarding his persistent symptoms 3. -as above I think patient has persistent issues related to his treatment for his prostate cancer and would benefit as an outpatient with Urology follow-up 4. Pulmonary-patient with noted restrictive lung disease mostly thought to be secondary to his size which makes sense. He is modestly hypoxic will continue monitor see if we can eliminate oxygen and if not plan for home oxygen therapy. No evidence of active other pulmonary issue. Patient is not demonstrated obstructive lung disease in the past nor disease seem like he has congestive heart failure for other etiology for his hypoxia most likely secondary to his overall restrictive lung disease/obesity hypoventilation. 5. Hematology-patient's white blood cell count somewhat improved. Platelet count remains low and I am going to leave him off of Lovenox for this reason. 6. Weakness-I am going to initiate physical therapy get him up and around today with skilled therapy assistance. This may help with his respiratory function as well 7. VTE prophylaxis-as above he continues to demonstrate thrombocytopenia and abnormalities of platelets making me hesitant to use heparin for VTE prophylaxis. Continue with SCDs and increase activity as above. Time Spent With Patient Critical Care time: I spent a total of [] minutes of critical care time on this patient's care today; this time is exclusive of procedural time.
[2022-01-11] MEDS: HYDROMORPHONE 0.5 MG INJ IV ×2 (10:13→22:10)
--- NOTE | 2022-01-11 11:05 | PT.IIE ---
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) Surgical History (Last Reviewed 01/10/22 @ 12:17 by Vince Goldstein MD) Anesthesia Status post knee surgery (~1993) Medical History (Last Reviewed 01/10/22 @ 12:17 by Vince Goldstein MD) Chronic venous insufficiency (04/10/16) Eczema (~1996) Frequent UTI (~2017) 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) History of kidney stones History of prostate cancer (~2016) Lower urinary tract symptoms Mixed hyperlipidemia Morbid obesity (08/16/15) Obstructive sleep apnea of adult (~2013) Pancreatitis (~1995) Phimosis Primary insomnia (08/16/15) Recurrent sinusitis (~2007) Restless leg syndrome (~2013) Restrictive lung disease (08/16/15) Tinnitus (~1972) Physical Therapy Inpatient Evaluation/Re-Eval M1 PT/OT-IP Prior Functional Status Start: 01/11/22 12:33 Freq: NEEDED Status: Active Protocol: Document 01/11/22 11:05 AB (Rec: 01/11/22 12:52 AB [id number]) Medical Review Prior Functional Status Medical History Reviewed Yes Communication able to make needs known Mobility and Gait pt stated that he is modified independent with all mobilities and ambulation without AD; stated that he can walk ~ 60 ft without AD but SOB limiting his mobility Social History Household Members none Living Arrangements House Number of Floors (Floors) One Floor Number of Stairs To Enter/Railing? 3 steps without rails to enter Home Environment Standard Height Toilet,Tub/ Shower Home Equipment Hand Held Shower,Grab Bars In Shower M2 PT-IP Current Condition Start: 01/11/22 12:33 Freq: NEEDED Status: Active Protocol: Document 01/11/22 11:05 AB (Rec: 01/11/22 12:52 AB [email or web address]) Physical Therapy Current Condition Current Condition Evaluation Date 01/11/22 Treatment Diagnosis sepsis UTI; difficulty in walking Onset Date 01/10/22 M3 PT-IP Subjective Start: 01/11/22 12:33 Freq: NEEDED Status: Active Protocol: Document 01/11/22 11:05 AB (Rec: 01/11/22 12:52 AB [email or web address]) Subjective Physical Therapy Visit Type Type Initial Evaluation Visit Start Time 11:05 Visit Stop Time 11:45 Total Visit Minutes 40 Number of MATH INTERVENTIONIST Visits 0 Physical Therapy Visit Comments Patient Comments agreeable to do PT Therapy Pain Assessment Pain When Pain Assessed At Rest Pain Present Pain Present Pain Reported Location right abd and flank Scale Used pain scale not stated M4 PT-IP Mobility and Gait Start: 01/11/22 12:33 Freq: NEEDED Status: Active Protocol: Document 01/11/22 11:05 AB (Rec: 01/11/22 12:52 AB [email or web address]) PT-Bed Mobility Assessment Supine to Sit Supine to Sit Standby Assistance Sit to Supine Sit to Supine Standby Assistance PT-Transfer Assessment Sit to and From Stand Sit to and from Stand Standby Assistance,Contact Guard Assistance,1 Person Assistance,Use of Upper Extremities Equipment Transfer Assistive Device Gait Belt,Front Wheeled Walker Orthotic/Prosthetic Devices or Brace: No Transfers Transfer Destination Bed,Chair Transfer Technique ambulated Transfer Ability Level of Assist Standby Assistance,Contact Guard Assistance,1 Person Assistance,Use of Upper Extremities Comments Mobility Comments pt sitting on chair and just mobilized with NAC and does not have O2 on upon checking. (+) SOB. O2 sat checked: 89- 90% at RA. pt rested and provided PT with PLOF and home set up info. O2 sat 90% at rest in RA. pt stated that he does not use O2 at home but has a CPAP. completed sit to stand from the chair CGA and ambulated to the bed using FWW CGA and cues. presents with waddling gait and unsteadiness. noted increase R knee flexion and cued pt to slow down and for LE stability. pt demonstrated bed mobility simulating how he does it at home wherein pt climbs into the bed and lays on his side. completed bed mobility SBA. O2 sat 86%. cued pt on deep breathing and resting. pt can be impulsive. O2 sat stayed at 89-90% at room air even after ~5 min of rest. educated pt on safety, use of FWW and stability. completed sit to stand SBA to CGA and ambulated back to the chair using FWW SBA to CGA. sat on chair. O2 sat: 83%. cued for deep breathing. O2 sat : 92% after ~ 5 min of rest. pt stated that he has neuropathy on BLE and has L anterior cruiciate tear before affecting his walking. positioned pt on the chair. table and call light within reach. informed pt regarding use of FWW for home use and pt stated that it will not fit in the bedroom area but he has stuffs he can hold on to. stated that he was doing fine before hospitalization and he expects to return back to his level of mobility prior to hospitalization. informed pt that at this time, FWW is recommended and will further assess mobility and safety during hospital stay and will determine safest AD to use or without AD depending on progress. pt understood. informed nurse regarding pt's mobility and O2 sat. Gait Assessment Gait Gait Assistance Required: Standby Assistance,Contact Guard Assist Distance (Feet) 12 Able to Maintain Weight Bearing Status Yes During Gait Assistive Devices Assistive Device Gait Belt,Front Wheeled Walker Orthotic/Prosthetic Devices or Brace: No Gait Deviations General Gait Pattern Decreased Stride Length, Decreased Feet Clearance,Step- to Gait Factors Limiting Gait Function Factors Limiting Gait Function Decreased Activity Tolerance, Decreased Sensation,Decreased Strength,Limited Range of Motion,Pain,Poor Balance,Poor Safety Awareness,Respiratory Distress Comments Gait Comments pls refer to mobility section for details PT-Balance Assessment Sitting Balance and Reactions Static Sitting Balance Ability Good Dynamic Sitting Balance Ability Good Standing Balance and Reactions Static Standing Balance Ability Fair Dynamic Standing Balance Ability Fair Device Used FWW M5 PT-IP Objective Assessments Start: 01/11/22 12:33 Freq: NEEDED Status: Active Protocol: Document 01/11/22 11:05 AB (Rec: 01/11/22 12:52 AB [email or web address]) Orientation Orientation/Cognition Level of Alertness Alert Orientation Name,Place,Situation Language Function Ability No Deficits Noted Safety Awareness Decreased Safety Awareness Memory Description No Deficits Noted Strength Lower Extremity Strength Assessment Within Functional Limits Sensation Assessment Sensation Gross Sensation Right LE Impaired,Left LE Impaired Light Touch Impaired Proprioception (Position) Impaired Sensation Description Numbness,Tingling Muscle Tone Muscle Tone WNL Yes M6 PT-IP Treatment Start: 01/11/22 12:33 Freq: NEEDED Status: Active Protocol: Document 01/11/22 11:05 AB (Rec: 01/11/22 12:52 AB [email or web address]) Physical Therapy Treatment Education Education Provided Safety M7 PT-IP Assessment and Plan Start: 01/11/22 12:33 Freq: NEEDED Status: Active Protocol: Document 01/11/22 11:05 AB (Rec: 01/11/22 12:52 AB [email or web address]) PT Summary Assessment and Plan Potential Rehabilitation Potential Fair Status of Condition at Evaluation Evolving Summary Impairments Pain,ROM,Strength,Balance, Coordination,Sensation,Tone, Cognition,Bed Mobility, Transfers,Gait,Activity Tolerance Assessment Summary pt requiring SBA to CGA with mobility using FWW but had decrease activity tolerance with (+) SOB and decrease O2 sat to 83% with ambulation. pt lives alone and recommending use of fWW at this time. Pt is hesistant to use FWW. will further assess progress for safe d/c plan. Goals Bed Mobility Goal Independent Transfer Goal Independent,Front Wheeled Walker Gait Goal Independent,Front Wheel Walker Gait Distance 50 Other Goals improve ambulation using SPC/ without AD 60 ft SBA up/down 3 steps without AD/SPC SBA Days to Meet Goals 10 Frequency of Treatment Frequency Of Treatment Once a Day Treatment Plan Physical Therapy Treatment Plan Bed Mobility Training,Transfer Training,Gait Training, Therapeutic Exercise,Balance Retraining,Discharge Planning, Hot or Cold Pack,Neuromuscular Re-ed,Coordination Retraining Precautions Other Precautions O2 sat Recommendations To Nursing Amount of Assist Needed 1 Person Assist Discharge Recommendations PT Discharge Recommendations Home with Assistance,Home Health Equipment Needed for Home Before FWW if not safe with SPC or Discharge without AD Transportation Needs at Discharge Private Vehicle,Wheelchair/ Cabulance
--- NOTE | 2022-01-11 14:41 | CM.DANOTE ---
Patient is a 66 yo male who was admitted on 01/10/22 for Poss Kidney Stone, leg problem. Pt has [facility] and [facility] for insurance and his PCP is Dr. Vince Goldstein. EMR was reviewed. Per , pt with chronic lung disease, morbid obesity, prostrate CA at baseline and admitted for UTI and on IV-Abx and possible pyleonephritis. Per PT, recommending home with assist and HH. SW met bedside with pt and explained role and pt confirms he lives nearby in [place] and technically lives with his Uncle but states he is a hermit and it is almost like pt lives alone and he cannot rely on any assist from Uncle. Pt states his Sister Misty Allen lives across the street and is his primary contact and is an RN and pt also has some local supportive friends. Pt has home CPAP but no home oxygen at baseline. Pt denies any hx of HH or SNF and confirms he would like to discharge home when stable and either [facility] or friend who delivers for [employer] can transport home. SW discussed HH services and frequency and pt states due to his poor endurance, length of distance to get to the front door when HH would arrive, and his hermit Uncle, he does not feel he would benefit from HH at this time as he would be worn out from exertion just getting to the door to let HH in. Pt declines SNF referral or option. Pt feels he will likely be back to his baseline by time of discharge and even though he does not have much endurance or strength, he would like to return home to what he is comfortable with. Plan: SW to follow for further PT and check in with pt prior to d/c to confirm home and r/o HH. PATIENCE Boyd Discharge Planning/Care Management CM Discharge Assessment Start: 01/11/22 14:34 Freq: Status: Active Protocol: Document 01/11/22 14:38 BF (Rec: 01/11/22 14:41 BF [id number]) Discharge Planning Assessment Assigned Professor Of Theology PATIENCE Gonzalez DPOA/Assigned Designee Name Sister misty Allen Contact Information [phone] Advance Directives? No Advance Directives on File No History Provided By Patient,Medical Record Has Patient been admitted in last 30 No days? Prior Living Arrangements House Household Members family Comment Lives with Uncle who pt states is a hermit and basically like he lives alone Type of transporation used prior to Relies on Others admit Independent with ADL's Yes: somewhat Is patient alert and oriented? Yes Needs Assistance With Meal Prep,Home Chores / Shopping Caregiver for Another No Comment Home CPAP but no home oxygen at baseline Barriers to Discharge No Discharge Plan Home Transportation Arrangement Pt states ANITRA Allen or a local friend can transport him home at d/c Referrals Initiated None needed Additional Comment Pt currently declining HH services Whiteboard Updated in Patient Room with Yes name and ext. # of Professor Of Theology Review Status In Process Please Provide Date Initial DC 01/11/22 Assessment Was Performed Next Review Type Continued Stay Review
[2022-01-11] MEDS: [UNRECOGNIZED DRUG - OTHER] IM (16:08)
[2022-01-11] MEDS: TRAZODONE 50 MG TABLET PO (20:29)
[2022-01-11] MEDS: OXYBUTYNIN 5 MG ER TAB PO (20:30)
[2022-01-11] MEDS: ROPINIROLE 1 MG TABLET 2 MG PO (20:30)
[2022-01-11] MEDS: DOXAZOSIN 4 MG TABLET 8 MG PO (20:33)
[2022-01-12] MEDS: OXYCODONE IR 5 MG TABLET PO ×2 (00:09→09:52)
[2022-01-12] MEDS: HYDROMORPHONE 0.5 MG INJ IV ×3 (02:30→19:46)
[2022-01-12 05:23] LABS: Alanine Aminotransferase 56 IU/L (<50); Albumin 3.4 g/dL (3.5-5.0); Albumin Globulin Ratio 0.9 (1.0-2.8); Alkaline Phosphatase 126 U/L (38-126); Aspartate Aminotransferase 57 IU/L (17-59); BUN Creatinine Ratio 17.2 (6-22); Bilirubin Total 2.5 mg/dL (0.2-1.3); Blood Urea Nitrogen 11 mg/dL (9-20); Calcium 8.8 mg/dL (8.4-10.2); Carbon Dioxide 29 mmol/L (22-32); Chloride 103 mmol/L (98-107); Estimated Glomerular Filt Rate > 60.0 mL/min (>60); Globulin 3.7 g/dL (1.7-4.1); Glucose 127 mg/dL (80-110); HEMOLYSIS < 15 (0-50); Potassium 3.8 mmol/L (3.4-5.1); Sodium 136 mmol/L (137-145); Total Protein 7.1 g/dL (6.3-8.2)
[2022-01-12 05:25] LABS: Hematocrit 31.8 % (41-53); Hemoglobin 10.6 g/dL (13.5-17.5); Mean Corpuscular HGB Conc 33.2 % (30-36); Mean Corpuscular Hemoglobin 30.7 PG (26-34); Mean Corpuscular Volume 92.4 fL (80-100); Red Blood Cell Count 3.45 X10^6/uL (4.5-5.9); Red Cell Distribution Width 18.4 % (11.6-14.8); White Blood Cell Count 4.5 X10^3/uL (4.5-11.0)
--- NOTE | 2022-01-12 05:51 | PC.NURSE ---
Shift Note: Patient was alert and orientedx4, very cooperative, with O2 support by nasal cannula at 1lpm maintaining O2 >92%. Patient uses his personal CPAP when asleep. Patient has episodes of right flank pain, due prn meds given and verbalized relief. No signs of distress. Afebrile, vital signs within acceptable limits. Patient uses urinal with adequate urine output. Patient safety maintained at all times.
[2022-01-12 06:28] LABS: Add Manual Diff / Slide Review YES
[2022-01-12 06:46] LABS: Neutrophils Absolute Manual 2970 /uL (3000-5900); Nucleated Red Blood Cells 1 #/Diff; Total Cells Counted 100
[2022-01-12 06:49] LABS: Platelet Estimate Decreased on smear
[2022-01-12 06:50] LABS: Anisocytosis 1+
[2022-01-12 08:15] VITALS: BP 132/69; PULSE 111; RESP 22; TEMP 36.6; O2SAT 92
[2022-01-12 08:16] LABS: Acinetobacter baumannii Not Detected (Not Detect); Candida albicans Not Detected (Not Detect); Candida glabrata Not Detected (Not Detect); Candida krusei Not Detected (Not Detect); Candida parapsilosis Not Detected (Not Detect); Candida tropicalis Not Detected (Not Detect); E. coli Not Detected (Not Detect); Enterobacter cloacae complex Not Detected (Not Detect); Enterobacteriaceae species Not Detected (Not Detect); Enterococcus species Not Detected (Not Detect); Haemophilus influenzae Not Detected (Not Detect); KPC (carbapenem-resist gene) Not Detected (Not Detect); Listeria monocytogenes Not Detected (Not Detect); Methicillin-resistant gene Not Detected (Not Detect); Neisseria meningitidis Not Detected (Not Detect); Proteus species Not Detected (Not Detect); Pseudomonas aeruginosa Not Detected (Not Detect); Serratia marcescens Not Detected (Not Detect); Staphylococcus species Not Detected (Not Detect); Streptococcus agalactiae (Gr B Not Detected (Not Detect); Streptococcus pneumonia Not Detected (Not Detect); Streptococcus pyogenes (Gr A) Not Detected (Not Detect); Streptococcus species Not Detected (Not Detect); Vancomycin-rest genes A/B Not Detected (Not Detect)
[2022-01-12 08:18] VITALS: O2SAT 94
[2022-01-12] MEDS: cefTRIAXone 2,000 MG in SODIUM CHLORIDE 0.9% 100 ML 200 ML IV (08:20)
--- NOTE | 2022-01-12 10:06 | PM.PN.1 ---
Subjective Subjective Date Patient Seen: 01/12/22 Time Patient Seen: 10:07 Interval history: Patient was up with physical therapy yesterday. He did desaturate to 86% sometimes 83% with activity although did fairly rapidly returned to 90+% with rest. Did require use of walker was still fairly weak unsteady on his feet Still having back pain at night low back midline to slightly right of midline. Otherwise feels pretty good. No additional symptoms Exam Vital Signs (past 8 hours): - 01/12/22 08:15 01/12/22 08:18 Temperature 97.8 F Pulse Rate 111 H Respiratory Rate 22 Blood Pressure 132/69 Pulse Oximetry 92 94 Oxygen Delivery Method Nasal Cannula Oxygen Flow Rate 1 Objective Labs Result Diagrams: 01/12/22 04:52 01/12/22 04:52 Labs: Laboratory Results - last 24 hr 01/10/22 01/12/22 01/12/22 08:20 04:52 04:52 WBC 4.5 RBC 3.45 L Hgb 10.6 L Hct 31.8 L MCV 92.4 MCH 30.7 MCHC 33.2 RDW 18.4 H Plt Count TNP Neut % (Auto) Lymph % (Auto) Not Reportable [place] % (Auto) Not Reportable Eos % (Auto) Not Reportable Baso % (Auto) Not Reportable Lymph # (Auto) Not Reportable [place] # (Auto) Not Reportable Baso # (Auto) Not Reportable Total Counted 100 Seg Neutrophils % 58.0 Band Neutrophils % 8.0 H Lymphocytes % (Manual) 18.0 L Atypical Lymphs % 6.0 H Monocytes % (Manual) 9.0 Metamyelocytes % 1.0 H Neutrophils # (Manual) 2970 L Nucleated RBCs 1 H Platelet Estimate Decreased on smear RBC Morphology See below Anisocytosis 1+ H Sodium 136 L Potassium 3.8 Chloride 103 Carbon Dioxide 29 BUN 11 Creatinine 0.64 L Estimated GFR > 60.0 BUN/Creatinine Ratio 17.2 Glucose 127 H Calcium 8.8 Total Bilirubin 2.5 H AST 57 ALT 56 H Alkaline Phosphatase 126 Total Protein 7.1 Albumin 3.4 L Globulin 3.7 Albumin/Globulin Ratio 0.9 L A. baumannii (PCR) Not detected Melina albicans (PCR) Not detected C. glabrata (PCR) Not detected C. krusei (PCR) Not detected C. parapsilosis (PCR) Not detected C. tropicalis (PCR) Not detected Enterobacteriac sp PCR Not detected E. cloacae complex PCR Not detected Enterococcus sp PCR Not detected E. coli (PCR) Not detected H. influenzae (PCR) Not detected Klebsiella oxytoca PCR Not detected Klebsiella pneumoniae Not detected List. monocytogenes PCR Not detected N. meningitidis (PCR) Not detected Proteus species (PCR) Not detected Serratia marcescens PCR Not detected Staphylococcus sp PCR Not detected Staph aureus (PCR) Not detected mecA-Methicil Res Gene Not detected Streptococcus sp PCR Not detected Group A Strep (PCR) Not detected Strep agalactiae (PCR) Not detected Strep pneumoniae (PCR) Not detected P. 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) History of kidney stones History of prostate cancer (~2016) Lower urinary tract symptoms Mixed hyperlipidemia Morbid obesity (08/16/15) Obstructive sleep apnea of adult (~2013) Pancreatitis (~1995) Phimosis Primary insomnia (08/16/15) Recurrent sinusitis (~2007) Restless leg syndrome (~2013) Restrictive lung disease (08/16/15) Tinnitus (~1972) Surgical History Anesthesia History of common bile duct surgery (~1997) Status post knee surgery (~1993) Family History Brother Prostate cancer Liver cancer Father Parkinson disease Grandfather Hepatitis Grandfather History of heart disease Grandmother Cancer Social History household members: family Smoking Status: Never smoker Assessment & Plan Assessment & Plan narrative: 1. GI-patient's LFTs continue to progress towards normal. Again I believe this is related to his other infection and not evidence of active biliary or hepatic disease other than exacerbation of underlying probable some degree of chronic hepatitis/hepatic disease which is poorly characterized based on previous evaluation workup 2. ID-patient growing a Proteus species from his urine that is resistant to some antibiotics but is sensitive to current antibiotic therapy. Should be able to switch him to an oral antibiotic when ready for discharge. Blood cultures thus far are negative only urine culture is growing the Proteus 3. Pulmonary-patient with longstanding chronic pulmonary disease evaluated previously by Pulmonary Medicine at [facility] felt to be only a restrictive lung disease related to his size. He is demonstrating some hypoxia with activity exercise. I do think he would benefit from home oxygen therapy for activity and will get that process started to initiate probable home oxygen with activity. He improved previously with weight loss unfortunately he has gained the weight back and I think that is made things worse again. No evidence of any other kind of lung disease at this point based on clinical exam. 4. Hematology. He remains somewhat anemic but essentially unchanged from admission. Platelet count remains difficult to assess given clumping of platelets. May well deserve outpatient evaluation for his abnormal CBC perhaps to include evaluation for possible GI source of blood loss. I will go ahead and order stool guaiac with next stool as long as he is here in the hospital. 5. Weakness-patient is benefiting from physical therapy will benefit from home health PT and OT as well. Overall patient is improved. Anticipate him being likely able to return home with home oxygen therapy sometime the next 24-48 hours, to complete a course of oral antibiotics for presumed pyelonephritis, as well as home health physical and occupational therapies as he returns to his baseline function.
--- NOTE | 2022-01-12 14:21 | PT.IPTN ---
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) Physical Therapy Treatment Note M2 PT-IP Current Condition Start: 01/11/22 12:33 Freq: NEEDED Status: Active Protocol: Document 01/12/22 14:13 BC (Rec: 01/12/22 14:21 BC [id number]) Physical Therapy Current Condition Current Condition Evaluation Date 01/11/22 Treatment Diagnosis sepsis UTI; difficulty in walking Onset Date 01/10/22 M3 PT-IP Subjective Start: 01/11/22 12:33 Freq: NEEDED Status: Active Protocol: Document 01/12/22 14:13 BC (Rec: 01/12/22 14:21 BC [id number]) Subjective Physical Therapy Visit Type Type Progress Note Visit Start Time 13:25 Visit Stop Time 13:55 Total Visit Minutes 28 Number of GETTERING FILAMENT MACHINE OPERATOR Visits 0 Physical Therapy Visit Comments Patient Comments agreeable to do PT Therapy Pain Assessment Pain When Pain Assessed At Rest Pain Present Pain Present Denied Pain Location right abd and flank Intensity 4 Scale Used Numeric (0 - 10) Description Aching,Acute,With Movement M4 PT-IP Mobility and Gait Start: 01/11/22 12:33 Freq: NEEDED Status: Active Protocol: Document 01/12/22 14:13 BC (Rec: 01/12/22 14:21 [id number]) PT-Transfer Assessment Sit to and From Stand Sit to and from Stand Standby Assistance,Contact Guard Assistance,1 Person Assistance,Use of Upper Extremities Equipment Transfer Assistive Device Gait Belt,Front Wheeled Walker Orthotic/Prosthetic Devices or Brace: No Transfers Transfer Destination Chair Transfer Technique ambulated Transfer Ability Level of Assist Standby Assistance,Contact Guard Assistance,1 Person Assistance,Use of Upper Extremities Comments Mobility Comments Pt completing chair transfers STS x2 reps with CGA to SBA and FWW. He denies bed mobility today stating he is more comfortable in the recliner. Gait Assessment Gait Gait Assistance Required: Standby Assistance,Contact Guard Assist Distance (Feet) 20 Able to Maintain Weight Bearing Status Yes During Gait Assistive Devices Assistive Device Gait Belt,Front Wheeled Walker Orthotic/Prosthetic Devices or Brace: No Gait Deviations General Gait Pattern Decreased Stride Length, Decreased Feet Clearance,Step- to Gait Factors Limiting Gait Function Factors Limiting Gait Function Decreased Activity Tolerance, Decreased Sensation,Decreased Strength,Limited Range of Motion,Pain,Poor Balance,Poor Safety Awareness,Respiratory Distress Stair Climbing Assessment Evaluation Level of Assist On Stairs Contact Guard Assistance, Minimal Assistance Devices Stair Climbing Assistive Devices Left Railing Technique/Endurance Stair Climbing Direction Ascend and Descend Stair Climbing Technique Step to Step Number of Steps Climbed 2 Comments Stair Climbing Comments Pt technique for 2 steps at home was to descend backwards holding door frame. He demo'd this today in room with use of bed rail as door frame. PT-Balance Assessment Sitting Balance and Reactions Static Sitting Balance Ability Good Dynamic Sitting Balance Ability Good Standing Balance and Reactions Static Standing Balance Ability Fair Dynamic Standing Balance Ability Fair Device Used FWW M5 PT-IP Objective Assessments Start: 01/11/22 12:33 Freq: NEEDED Status: Active Protocol: Document 01/11/22 11:05 AB (Rec: 01/11/22 12:52 AB [id number]) Orientation Orientation/Cognition Level of Alertness Alert Orientation Name,Place,Situation Language Function Ability No Deficits Noted Safety Awareness Decreased Safety Awareness Memory Description No Deficits Noted Strength Lower Extremity Strength Assessment Within Functional Limits Sensation Assessment Sensation Gross Sensation Right LE Impaired,Left LE Impaired Light Touch Impaired Proprioception (Position) Impaired Sensation Description Numbness,Tingling Muscle Tone Muscle Tone WNL Yes M6 PT-IP Treatment Start: 01/11/22 12:33 Freq: NEEDED Status: Active Protocol: Document 01/12/22 14:13 BC (Rec: 01/12/22 14:21 [id number]) Physical Therapy Treatment Education Education Provided Precautions,Safety Brace Education Patient,Caregiver Other Treatments Other Treatment Performed Stair mgmt, home set up for d/ c with a chair to rest as needed when entering the home after completing the two steps , increased safety awareness of O2 cord when ambulating in home. M7 PT-IP Assessment and Plan Start: 01/11/22 12:33 Freq: NEEDED Status: Active Protocol: Document 01/12/22 14:13 BC (Rec: 01/12/22 14:21 [id number]) PT Summary Assessment and Plan Potential Rehabilitation Potential Good Status of Condition at Evaluation Evolving Summary Impairments Pain,ROM,Strength,Balance, Coordination,Sensation,Tone, Cognition,Bed Mobility, Transfers,Gait,Activity Tolerance Assessment Summary Pt agreeable to PT and use of FWW. He states he has a walker his ANITRA can give him at d/c. On 2L O2, at rest is 96% and after stairs/gait 92-93%. Pt able to ascend/descend single step 2x with technique he uses at home (backwards descent) and just min to CGA for safety . His friend of 40+ years arrived toward end of session and will be assisting him home . Overall Pt is improving with increased ambulation distance and ability to assess stairs today. He states he is feeling better as well. Recommend d/c home when medically stable. Goals Bed Mobility Goal Independent,Minimal Assistance Transfer Goal Independent,Front Wheeled Walker Gait Goal Independent,Front Wheel Walker Gait Distance 50 Other Goals improve ambulation using SPC/ without AD 60 ft SBA up/down 3 steps without AD/SPC SBA Days to Meet Goals 10 Frequency of Treatment Frequency Of Treatment Once a Day Treatment Plan Physical Therapy Treatment Plan Bed Mobility Training,Transfer Training,Gait Training, Therapeutic Exercise,Balance Retraining,Discharge Planning, Hot or Cold Pack,Neuromuscular Re-ed,Coordination Retraining Precautions Other Precautions O2 sat Recommendations To Nursing Amount of Assist Needed Standby Assistance Discharge Recommendations PT Discharge Recommendations Home with Assistance,Home Health Equipment Needed for Home Before FWW if not safe with SPC or Discharge without AD Transportation Needs at Discharge Private Vehicle,Wheelchair/ Cabulance
[2022-01-12 19:35] VITALS: BP 153/74; PULSE 108; RESP 24; TEMP 36.5; O2SAT 94
[2022-01-12 20:26] VITALS: BP 153/74; PULSE 108
[2022-01-12] MEDS: DOXAZOSIN 4 MG TABLET 8 MG PO (20:26)
[2022-01-12] MEDS: ROPINIROLE 1 MG TABLET 2 MG PO (20:26)
[2022-01-12] MEDS: TRAZODONE 50 MG TABLET PO (20:27)
[2022-01-12] MEDS: OXYBUTYNIN 5 MG ER TAB PO (20:30)
[2022-01-12 21:55] VITALS: PULSE 108; RESP 24; O2SAT 94
[2022-01-13] MEDS: HYDROMORPHONE 0.5 MG INJ IV ×3 (00:22→20:48)
[2022-01-13] MEDS: cefTRIAXone 2,000 MG in SODIUM CHLORIDE 0.9% 100 ML 200 ML IV (07:35)
[2022-01-13 07:45] VITALS: BP 142/76; PULSE 103; RESP 19; TEMP 36.2; O2SAT 94
--- NOTE | 2022-01-13 08:12 | P.PN_ITS ---
Subjective Subjective Date Patient Seen: 01/13/22 Time Patient Seen: 08:12 Interval history: Patient expresses concerns about going home. He struggle even to make it from the bedside chair to the bathroom without not only getting winded but feeling totally exhausted and tired. This is new for him and he really does not have any help at home but does not know how he can function at home in this fashion. Wonders if perhaps some rehab might be helpful. Back pain is still present but perhaps slightly improved. Difficulty sleeping in these beds Exam Vital Signs (past 8 hours): Oxygen Delivery Method Nasal Cannula Oxygen Flow Rate 1 Objective Labs Result Diagrams: 01/12/22 04:52 01/12/22 04:52 Labs: Laboratory Results - last 24 hr 01/10/22 08:20 A. baumannii (PCR) Not detected Melina albicans (PCR) Not detected C. glabrata (PCR) Not detected C. krusei (PCR) Not detected C. parapsilosis (PCR) Not detected C. tropicalis (PCR) Not detected Enterobacteriac sp PCR Not detected E. cloacae complex PCR Not detected Enterococcus sp PCR Not detected E. coli (PCR) Not detected H. influenzae (PCR) Not detected Klebsiella oxytoca PCR Not detected Klebsiella pneumoniae Not detected List. monocytogenes PCR Not detected N. meningitidis (PCR) Not detected Proteus species (PCR) Not detected Serratia marcescens PCR Not detected Staphylococcus sp PCR Not detected Staph aureus (PCR) Not detected mecA-Methicil Res Gene Not detected Streptococcus sp PCR Not detected Group A Strep (PCR) Not detected Strep agalactiae (PCR) Not detected Strep pneumoniae (PCR) Not detected P. 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) History of kidney stones History of prostate cancer (~2016) Lower urinary tract symptoms Mixed hyperlipidemia Morbid obesity (08/16/15) Obstructive sleep apnea of adult (~2013) Pancreatitis (~1995) Phimosis Primary insomnia (08/16/15) Recurrent sinusitis (~2007) Restless leg syndrome (~2013) Restrictive lung disease (08/16/15) Tinnitus (~1972) Surgical History Anesthesia History of common bile duct surgery (~1997) Status post knee surgery (~1993) Family History Brother Prostate cancer Liver cancer Father Parkinson disease Grandfather Hepatitis Grandfather History of heart disease Grandmother Cancer Social History household members: family Smoking Status: Never smoker Assessment & Plan Assessment & Plan narrative: 1. GI-assuming this is improving. Patient does not appear to be jaundiced. Chose not to repeat labs. 2. ID-patient growing Proteus from urine as above. Will switch to oral antibiotics here in the hospital in preparation for discharge. I will choose generic Augmentin. Plan for 30 day course of low-dose ciprofloxacin following 2 weeks of full dose oral antibiotics with the Augmentin. 3. Pulmonary-patient's numbers seem some better. He reports at home with up portable oximeter he has even with activity does not dip into the less than 90 range. He certainly was lower here. Does need additional support with oxygen for now 4. Right leg wound-seems to be slowly healing. Continue with antibiotic therapy as above which may be beneficial as well. If fails to completely heal will likely need wound care assistance but thus far I think it is healing inappropriately. 5. Hematology-plan for outpatient evaluation of his hematological abnormalities 6. Weakness/deconditioning-patient is greatly affected by his morbid obesity obviously. This is playing a role on top of his active medical problems including what I think was sepsis from pyelonephritis etcetera. At this point I do think senior care placement would be appropriate for perhaps 2 weeks or so. I will get the discharge planning staff to begin to work on this. Note: Greater than 30 minutes total time was spent on day of service, evaluating the patient on the floor, including examining the patient, discussing clinical course with clinical and nursing staff, reviewing clinical course in the computer, preparing documentation and writing orders for continued management of care, discussing status with family as appropriate, reviewing plans for the next 24 hours with both patient/family and nursing staff as appropriate.
[2022-01-13 10:20] VITALS: O2SAT 96
--- NOTE | 2022-01-13 10:41 | OT.IP.EVAL ---
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) Past Medical History (Last Reviewed 01/10/22 @ 12:17 by Vince Goldstein MD) Chronic venous insufficiency (04/10/16) Eczema (~1996) Frequent UTI (~2017) 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) History of common bile duct surgery (~1997) History of kidney stones History of prostate cancer (~2016) Lower urinary tract symptoms Mixed hyperlipidemia Morbid obesity (08/16/15) Obstructive sleep apnea of adult (~2013) Pancreatitis (~1995) Phimosis Primary insomnia (08/16/15) Recurrent sinusitis (~2007) Restless leg syndrome (~2013) Restrictive lung disease (08/16/15) Tinnitus (~1972) Surgical History (Last Reviewed 01/10/22 @ 12:17 by Vince Goldstein MD) Anesthesia History of common bile duct surgery (~1997) Status post knee surgery (~1993) Occupational Therapy Inpatient Evaluation/Re-Eval M1 PT/OT-IP Prior Functional Status Start: 01/11/22 12:33 Freq: NEEDED Status: Active Protocol: Document 01/13/22 11:55 CGR (Rec: 01/13/22 12:20 CGR [id number]) Medical Review Prior Functional Status Medical History Reviewed Yes Communication able to make needs known Mobility and Gait pt stated that he is modified independent with all mobilities and ambulation without AD; stated that he can walk ~ 60 ft without AD but SOB limiting his mobility Activities of Daily Living and IADL's Pt was IND for all ADLs but states that he has difficulty getting in and out of his bath /shower Social History Household Members family Living Arrangements House Number of Floors (Floors) One Floor Number of Stairs To Enter/Railing? 3 steps without rails to enter Home Environment Standard Height Toilet,Tub/ Shower Home Equipment Hand Held Shower,Grab Bars In Shower M1 PT/OT-IP Prior Functional Status Start: 01/13/22 11:54 Freq: NEEDED Status: Active Protocol: Document 01/13/22 11:55 CGR (Rec: 01/13/22 12:20 CGR [id number]) Medical Review Prior Functional Status Medical History Reviewed Yes Communication able to make needs known Mobility and Gait pt stated that he is modified independent with all mobilities and ambulation without AD; stated that he can walk ~ 60 ft without AD but SOB limiting his mobility Activities of Daily Living and IADL's Pt was IND for all ADLs but states that he has difficulty getting in and out of his bath /shower Social History Household Members family Living Arrangements House Number of Floors (Floors) One Floor Number of Stairs To Enter/Railing? 3 steps without rails to enter Home Environment Standard Height Toilet,Tub/ Shower Home Equipment Hand Held Shower,Grab Bars In Shower M2 OT-IP Current Condition Start: 01/13/22 11:54 Freq: Status: Active Protocol: Document 01/13/22 11:55 CGR (Rec: 01/13/22 12:20 CGR [id number]) Occupational Therapy Current Condition Current Condition Evaluation Date 01/13/22 Treatment Diagnosis sepsis, R sided flank and back pain. Diagnosis Onset Date 01/10/22 M3 OT- IP Subjective and Pain Start: 01/13/22 11:54 Freq: Status: Active Protocol: Document 01/13/22 11:55 CGR (Rec: 01/13/22 12:20 CGR [id number]) OT- Subjective Occupational Therapy Visit Type Type Initial Evaluation Visit Start Time 10:00 Visit Stop Time 10:41 Total Visit Minutes 41 OT Pain Assessment Pain When Pain Assessed During Mobility Pain Present Pain Present Pain Reported Location Low Back Scale Used did not rate Management Techniques Distraction,Modification of Treatment,Re-positioning M4 OT- IP ADL's Start: 01/13/22 11:54 Freq: Status: Active Protocol: Document 01/13/22 11:55 CGR (Rec: 01/13/22 12:20 CGR [id number]) OT [id number] Comments OT Self-Feeding Comments not meal time OT ADL-Grooming General Evaluation Grooming Ability Standby Assistance Areas Needing Assistance Face Washing Comments OT Grooming Comments standing at sink OT ADL-Oral Care General Eval Oral Care Ability Standby Assistance Areas of Assistance Brushing Teeth,Retrieving/Set- Up of Items Comments Oral Care Comments standing at sink OT ADL-Dressing Comments OT Dressing Comments not performed OT ADL-Toileting General Evaluation Toileting Ability Standby Assistance Areas Needing Assistance Manage Clothing,Perform Perineal Hygiene Comments OT Toileting Comments Pt able to sit on toilet for urination. OT ADL-Bathing Comments OT Bathing Comments not performed M5 OT- IP IADL's Start: 01/13/22 11:54 Freq: Status: Active Protocol: Document 01/13/22 11:55 CGR (Rec: 01/13/22 12:20 CGR [id number]) OT-Instrumental Activities of Daily Living Deficits IADL Deficits Identified No Deficits Home Safety Awareness Awareness of Need for Assistance at Home Good Awareness Ability to Problem Solve Emergency Able to Problem Solve Situations Medication Management Medication Management No Deficits Identified Money Management Money Management No Deficits Identified Meal Preparation Meal Preparation Comments Concerns regarding pt's ability to perform safely Wood Car Builder Wood Car Builder Comments Concerns regarding pt's ability to perform safely Driving Driving Comments Concerns regarding pt's ability to perform safely M6 OT- IP Functional Cognition Start: 01/13/22 11:54 Freq: Status: Active Protocol: Document 01/13/22 11:55 CGR (Rec: 01/13/22 12:20 CGR [id number]) Cognitive Factors Limiting Selfcare Function Cognitive Ability Level of Alertness Alert Patient Orientation Name,Age,Birthday,Month,Date, Year,Day of Week,Place, Situation Attention Span Ability Capable of Focused Attention, Capable of Sustained Attention Ability to Follow Commands Able to Follow Multi-Step Commands OT- Vision and Hearing OT- Hearing Assessment OT- Hearing Assessment WFL OT- Vision Assessment Visual Acuity WFL Visual Attentiveness WFL Occular Pursuits WFL Visual Convergence WFL Vision Assessment Comments PT states he has had cateract sx recently. Pt has glasses but does not wear them. M7 OT- IP Mobility and Balance Start: 01/13/22 11:54 Freq: Status: Active Protocol: Document 01/13/22 11:55 CGR (Rec: 01/13/22 12:20 CGR [id number]) OT-Transfer Assessment Sit to and From Stand Sit to and from Stand Contact Guard Assistance Transfers Transfer Ability Contact Guard Assistance Technique Transfer Destination Chair,Toilet Transfer Technique Stand Step Pivot Devices Transfer Assistive Devices Gait Belt,Front Wheeled Walker Comments Mobility Comments Pt is able to ambulate to toilet for toileting and perform transfers with CGA and grab bars but of note, pt is SOB with all functional mobility that progressively gets worse the longer he is up . OT- Gait Assessment Gait Gait Assistance Required: Contact Guard Assist Assistive Devices Assistive Device Gait Belt,Front Wheeled Walker OT- Balance Assessment Sitting Balance and Reactions Static Sitting Balance Ability Normal Dynamic Sitting Balance Ability Good M8 OT- IP Objective Assessments Start: 01/13/22 11:54 Freq: Status: Active Protocol: Document 01/13/22 11:55 CGR (Rec: 01/13/22 12:20 CGR [id number]) OT Gross Range of Motion Upper Extremity Range of Motion Assessment Within Functional Limits OT Strength Upper Extremity Strength Assessment Within Functional Limits Comments Strength Comments shlds 4-/5, arms and hands 4+/ 5 OT- Coordination Assessment Upper Extremity Finger to Nose Test Within Functional Limits Finger Tapping Test Within Functional Limits OT-Muscle Tone Assessment Muscle Tone WNL Yes OT Sensation Assessment Comments Summary Comments PT states he has 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 Pt states his palm feels normal. This is his baseline. Edema Edema Absent M9 OT- IP Assessment and Plan Start: 01/13/22 11:54 Freq: Status: Active Protocol: Document 01/13/22 11:55 CGR (Rec: 01/13/22 12:20 CGR [id number]) OT Summary Assessment and Plan Potential Rehabilitation Potential Excellent Analytic Complexity at Evaluation Moderate Summary OT Impairments Pain,Strength,Sensation, Functional Mobility,Grooming, Dressing,Toileting,Bathing, Toilet Transfers,Shower Transfers,Activity Tolerance Assessment Summary Pt presents as a moderate complexity evaluation s/p admit for sepsis. Pt is deconditioned at this time and concerned about his ability to care for himself at home. Given his fatigue with simple ADLs pt would benefit from SNF to improve his endurance and educate further on home safety and energy conservation. Goals Grooming Goal Independent Dressing Goal Independent,Maintenance And Repair Worker,Sock Aid Toileting Goal Independent Bathing Goal Independent Toilet Transfer Goal Independent Shower Transfer Goal Independent Days to Meet Goals 20 Frequency of Treatment Frequency Of Treatment Once a Day Treatment Plan OT Treatment Plan ADL Training,Functional Mobility,Therapeutic Exercises ,Patient/Family Education, Discharge Planning Other Treatment Recommendations and Next shower Treatment Focus Discharge Recommendations OT Discharge Recommendations SNF Rehab Transportation Needs at Discharge Private Vehicle
--- NOTE | 2022-01-13 11:25 | PT.IPTN ---
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) Physical Therapy Treatment Note M2 PT-IP Current Condition Start: 01/11/22 12:33 Freq: NEEDED Status: Active Protocol: Document 01/12/22 14:13 BC (Rec: 01/12/22 14:21 BC [id number]) Physical Therapy Current Condition Current Condition Evaluation Date 01/11/22 Treatment Diagnosis sepsis UTI; difficulty in walking Onset Date 01/10/22 M3 PT-IP Subjective Start: 01/11/22 12:33 Freq: NEEDED Status: Active Protocol: Document 01/13/22 11:07 KS (Rec: 01/13/22 11:53 KS [id number]) Subjective Physical Therapy Visit Type Type Treatment Note Visit Start Time 11:07 Visit Stop Time 11:25 Total Visit Minutes 18 Number of MEDICAL STAFF MANAGER Visits 1 Physical Therapy Visit Comments Patient Comments agreeable to do PT Therapy Pain Assessment Pain When Pain Assessed During Mobility Pain Present Pain Present Pain Reported Location Low Back Scale Used did not quantify Pain Management Techniques Modification of Treatment M4 PT-IP Mobility and Gait Start: 01/11/22 12:33 Freq: NEEDED Status: Active Protocol: Document 01/13/22 11:07 KS (Rec: 01/13/22 11:53 KS [id number]) PT-Transfer Assessment Sit to and From Stand Sit to and from Stand Contact Guard Assistance,1 Person Assistance,Use of Upper Extremities Equipment Transfer Assistive Device Gait Belt,Front Wheeled Walker Orthotic/Prosthetic Devices or Brace: No Transfers Transfer Destination Chair Transfer Technique ambulated Transfer Ability Level of Assist Standby Assistance,Contact Guard Assistance,1 Person Assistance,Use of Upper Extremities Comments Mobility Comments Pt in chair upon arrival on .5 L O2 @ 96-97%. Pt sit<>stand w/ FWW CGA, O2 raised to 1L for mobility. He ambulated ~20 ft in room SBA to CGA and quickly became SOB, but O2 remained ~93%. Pt unable to tolerate further ambulation and requested to sit back down . O2 took ~1 min to recover to 95-96%. Pt then completed 2x10 ankle pumps, quad sets, and glute sets. Pt unable to tolerate seated marching due to increased low back pain. Pts O2 on .5 L during exercise and dropped to 93% but recovered again in ~ 1 min. Gait Assessment Gait Gait Assistance Required: Standby Assistance,Contact Guard Assist Distance (Feet) 20 Able to Maintain Weight Bearing Status Yes During Gait Assistive Devices Assistive Device Gait Belt,Front Wheeled Walker Orthotic/Prosthetic Devices or Brace: No Gait Deviations General Gait Pattern Decreased Stride Length, Decreased Feet Clearance,Step- to Gait,Wide Based Gait Factors Limiting Gait Function Factors Limiting Gait Function Decreased Activity Tolerance, Decreased Sensation,Decreased Strength,Limited Range of Motion,Pain,Poor Balance,Poor Safety Awareness,Respiratory Distress Comments Gait Comments pls refer to mobility section for details PT-Balance Assessment Sitting Balance and Reactions Static Sitting Balance Ability Good Dynamic Sitting Balance Ability Good Standing Balance and Reactions Static Standing Balance Ability Fair Dynamic Standing Balance Ability Fair Device Used FWW M5 PT-IP Objective Assessments Start: 01/11/22 12:33 Freq: NEEDED Status: Active Protocol: Document 01/11/22 11:05 AB (Rec: 01/11/22 12:52 AB [id number]) Orientation Orientation/Cognition Level of Alertness Alert Orientation Name,Place,Situation Language Function Ability No Deficits Noted Safety Awareness Decreased Safety Awareness Memory Description No Deficits Noted Strength Lower Extremity Strength Assessment Within Functional Limits Sensation Assessment Sensation Gross Sensation Right LE Impaired,Left LE Impaired Light Touch Impaired Proprioception (Position) Impaired Sensation Description Numbness,Tingling Muscle Tone Muscle Tone WNL Yes M6 PT-IP Treatment Start: 01/11/22 12:33 Freq: NEEDED Status: Active Protocol: Document 01/13/22 11:07 KS (Rec: 01/13/22 11:53 MT [id number]) Physical Therapy Treatment Exercises Exercises Ankle Pumps,Gluteal Sets,Quad Sets Education Education Provided Precautions,Safety M7 PT-IP Assessment and Plan Start: 01/11/22 12:33 Freq: NEEDED Status: Active Protocol: Document 01/13/22 11:07 KS (Rec: 01/13/22 11:53 KS [id number]) PT Summary Assessment and Plan Potential Rehabilitation Potential Good Status of Condition at Evaluation Evolving Summary Impairments Pain,ROM,Strength,Balance, Coordination,Sensation,Tone, Cognition,Bed Mobility, Transfers,Gait,Activity Tolerance Assessment Summary Pt continues to be limited in mobility due to low activity tolerance, weakness, and SOB. Able to ambulate 20 ft but w/ quick approach to fatigue and SOB, 93% on 1L. Completed LE exercises w/ cues on .5L and desat to 93%, but recovered to 96% after 1 min rest. Unable to tolerate seated marching due to increased low back pain . Pt would benefit from SNF to improve activity tolerance. Goals Bed Mobility Goal Independent,Minimal Assistance Transfer Goal Independent,Front Wheeled Walker Gait Goal Independent,Front Wheel Walker Gait Distance 50 Other Goals improve ambulation using SPC/ without AD 60 ft SBA up/down 3 steps without AD/SPC SBA Days to Meet Goals 10 Frequency of Treatment Frequency Of Treatment Once a Day Treatment Plan Physical Therapy Treatment Plan Bed Mobility Training,Transfer Training,Gait Training, Therapeutic Exercise,Balance Retraining,Discharge Planning, Hot or Cold Pack,Neuromuscular Re-ed,Coordination Retraining Precautions Other Precautions O2 sat Recommendations To Nursing Amount of Assist Needed Standby Assistance Discharge Recommendations PT Discharge Recommendations Home with Assistance,Home Health Equipment Needed for Home Before FWW if not safe with SPC or Discharge without AD Transportation Needs at Discharge Private Vehicle,Wheelchair/ Cabulance
--- NOTE | 2022-01-13 15:53 | CM.DPC ---
DCP/continued: Reviewed chart. Received notification that SNF will be needed when patient is medically stable. C2 TACTICAL ANALYSIS TECHNICIAN met with patient explained role. Patient provided with Medicare/Quality choice list for SNF. Patient encouraged to go online to check on scores of facilities provided by the state. Patient agreeable. Met again with patient for SNF choice. First choice [facility] and second is [facility]. Placed call to [facility] and they do not anticipate having a bed till the end of this week. Therefore, placed call to [facility] and spoke with Analy, she does have bed and does take [facility]. Therefore, clinical faxed to facility for review and if acceptable to start authorization. Patient updated. CM team following closely. P: SNF when stable. PATIENCE White
[2022-01-13 19:00] VITALS: O2SAT 96
[2022-01-13 20:00] VITALS: BP 149/68; PULSE 90; RESP 17; TEMP 36.9; O2SAT 94
[2022-01-13] MEDS: DOXAZOSIN 4 MG TABLET 8 MG PO (20:47)
[2022-01-13] MEDS: OXYBUTYNIN 5 MG ER TAB PO (20:47)
[2022-01-13] MEDS: AMOXICILLIN/CLAV 500/125 MG 1 TAB PO (20:47)
[2022-01-13] MEDS: OXYCODONE IR 5 MG TABLET PO (20:47)
[2022-01-13] MEDS: ROPINIROLE 1 MG TABLET 2 MG PO (20:48)
[2022-01-13] MEDS: TRAZODONE 50 MG TABLET PO (20:48)
[2022-01-13] MEDS: SODIUM CHLORIDE 0.9% FLUSH 10 ML IV (20:49)
[2022-01-14] MEDS: OXYCODONE IR 5 MG TABLET PO (05:28)
[2022-01-14] MEDS: HYDROMORPHONE 0.5 MG INJ IV (05:29)
--- NOTE | 2022-01-14 07:47 | PM.DS.1 ---
History of Present Illness History of Present Illness Date Patient Seen: 01/14/22 Time Patient Seen: 07:47 Chief complaint: Believes kidney stone, blood in urine, leg problem Narrative: 66-year-old male whom I have seen on only 2 other occasions, most recently in July 2020, who presented to [facility] Emergency Department on day of admission with right-sided back and flank pain thinking he had a kidney stone. Symptoms began 2 maybe 3 days prior to admission with some significant urinary pain and discomfort followed by hematuria. He then developed the right-sided flank and back pain that he is currently complaining of as well. He then developed fever to 101+ the lasted for several hours seem to diminish then returned the next day. He also began to notice that he is becoming somewhat jaundiced her turning yellow. He family decided based on input from family members that he finally should seek care and was brought to the emergency department Denies any epigastric or abdominal pain in the anterior area. Has had issues with his bile duct previously in required an ERCP (none of the details are available) (this appears to be in 1996) Patient with some element of chronic lung disease as baseline shortness of breath and is morbidly obese and has issues around that as well but nothing new or different in that regard. Appetite been diminished Discharge Providers Provider Date of admission: 01/10/22 12:01 Discharge Date: 01/14/22 Primary care physician: Vince Goldstein MD Consults: 01/11/22 09:51 Consult to Physical Therapy Evaluate & Treat Comment: Physician Instructions: Evaluate and Treat 01/13/22 08:11 Consult to Discharge Planning Routine Comment: SNF placement, pt agrees 01/13/22 08:13 Consult to Occupational Therapy Evaluate & Treat Comment: Physician Instructions: Evaluate and treat Discharge provider: Vince Goldstein MD Summary Hospital Course Discharge Diagnosis: 1. Sepsis secondary to urinary tract infection, resolved 2. Urinary tract infection with Proteus, probably pyelonephritis 3. Cholestatic hepatitis secondary to sepsis as above, resolved 4. Morbid obesity 5. Restrictive lung disease with hypoxia 6. Obesity hypoventilation syndrome 7. Obstructive sleep apnea of the adult on BiPAP 8. Chronic urinary incontinence after treatment for prostate cancer 9. Hyperlipidemia 10. History of prostate cancer Hospital Course: Patient was admitted to the hospital after presenting to the [facility] Emergency Department as noted above. He showed evidence of sepsis with tachycardia, hypoxia, hypotension, and evidence of liver dysfunction as noted above. He was treated with appropriate IV fluids as well as broad-spectrum IV antibiotics. He seemed to resolve his sepsis over the first 24 hours or so of admission. Source of infection was felt to be primary urinary tract probably pyelonephritis giving his presenting symptoms. He eventually grew Proteus species from his urine which was sensitive to the original antibiotics and antibiotics with further tailored and subsequently switched to an oral antibiotic Patient also has a pre-existing wound in his right pretibial area with slow healing. This is consistent with a traumatized ulceration with slow healing. I do not believe this to be a significant source of infection. Patient had exacerbation of his chronic lung disease. Patient felt to have significant chronic lung disease on the basis of his size primarily with restriction on testing. He has previously been on oxygen therapy but did better after some weight loss however he has gained weight back and as above with active medical issues showed persistence of his hypoxia primarily with activity. He will need to continue on oxygen replacement therapy with activity at least for now. Patient with chronic issues with his bladder and infections etcetera. Reports symptoms about every 2 weeks or so. He has had significant issues ever since treatment for his prostate cancer. At this point anticipate treatment with full-dose antibiotics for a total of 2 weeks presuming this to be pyelonephritis and then I would advocate additional 30 days of suppressive dose antibiotics which have been ordered. He will need to follow-up with urology as well Patient is morbidly obese which complicated his care in the hospital. He was very unsteady unstable on unhappy with the beds designed to prevent skin breakdown. Required additional assistance be up and around with skilled therapies and even for the basics of ADL using the restroom etcetera. Patient was very weak and unsteady on his feet requiring assistance. He was felt not to be safe to return home where he has no assistance whatsoever. He was therefore plan to be discharged to long-term to continue with skilled therapies until he is back to baseline and safe to be alone at home. Patient did use his BiPAP/CPAP during his hospitalization for treatment of his sleep apnea which should continue in his next facility as well. Exam Vital Signs (past 8 hours): Oxygen Delivery Method Room Air,Nasal Cannula Oxygen Flow Rate 1 Objective Labs Result Diagrams: 01/12/22 04:52 01/12/22 04:52 Labs: Laboratory Results - last 24 hr 01/10/22 01/10/22 08:20 08:20 Lactate 1.5 A. baumannii (PCR) Not detected Melina albicans (PCR) Not detected C. glabrata (PCR) Not detected C. krusei (PCR) Not detected C. parapsilosis (PCR) Not detected C. tropicalis (PCR) Not detected Enterobacteriac sp PCR Not detected E. cloacae complex PCR Not detected Enterococcus sp PCR Not detected E. coli (PCR) Not detected H. influenzae (PCR) Not detected Klebsiella oxytoca PCR Not detected Klebsiella pneumoniae Not detected List. monocytogenes PCR Not detected N. meningitidis (PCR) Not detected Proteus species (PCR) Not detected Serratia marcescens PCR Not detected Staphylococcus sp PCR Not detected Staph aureus (PCR) Not detected mecA-Methicil Res Gene Not detected Streptococcus sp PCR Not detected Group A Strep (PCR) Not detected Strep agalactiae (PCR) Not detected Strep pneumoniae (PCR) Not detected P. 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) History of kidney stones History of prostate cancer (~2016) Lower urinary tract symptoms Mixed hyperlipidemia Morbid obesity (08/16/15) Obstructive sleep apnea of adult (~2013) Pancreatitis (~1995) Phimosis Primary insomnia (08/16/15) Recurrent sinusitis (~2007) Restless leg syndrome (~2013) Restrictive lung disease (08/16/15) Tinnitus (~1972) Surgical History Anesthesia History of common bile duct surgery (~1997) Status post knee surgery (~1993) Family History Brother Prostate cancer Liver cancer Father Parkinson disease Grandfather Hepatitis Grandfather History of heart disease Grandmother Cancer Social History household members: family Smoking Status: Never smoker Discharge Assessment & Plan Assessment and Plan Plan of Treatment: Plan for discharge to long-term. He will need to continue on oral antibiotic therapy to complete 2 weeks for treatment of possible pyelonephritis followed by a 30 day course of suppressive dose antibiotics Discharge Plan Discharge Plan Patient Disposition: SNF Transfer to: [facility] Consult as needed: Dental, Hearing, Mental health, Podiatry and Vision Discharge orders & Medications Prescriptions: New amoxicillin-pot clavulanate 500-125 mg tablet 1 tab PO BID Qty: 28 0RF ciprofloxacin HCl 250 mg tablet 250 mg PO DAILY Qty: 30 0RF Rx Instructions: start after completing 2 weeks of other antibiotic for urine infection Continued ropinirole 2 mg tablet 2 mg PO BEDTIME 0RF Rx Instructions: 2-3 hrs before bedtime. doxazosin 8 mg tablet 8 mg PO BEDTIME 0RF Rx Instructions: 2-3 hrs before bed. oxybutynin chloride 5 mg tablet extended release 24hr 5 mg PO BEDTIME 0RF Rx Instructions: 2-3 hrs before bed trazodone 50 mg tablet 50 mg PO DAILY 0RF Rx Instructions: 2-3 hrs before bed (DME) Disabled Parking Qty: 1 0RF Rx Instructions: Patient qualifies for disabled parking as per the attached form. Follow up/Referrals: Vince Goldstein MD [Primary Care Provider] - 2 Weeks Discharge Health Status Multidrug resistant organism: No MDRO Precautions: [place] Diet/Activity/Treatments Diet: Diet as Tolerated Liquid consistency: Normal/Thin Food texture: Regular Oxygen: 2 l/min NC with activity Skin/Wound/Dressing Care Report to your healthcare provider any signs of infection, such as:: chills, fever, night sweats and increased pain Special Rehabilitation Services Reason for rehabilitation: Recovery r/t decondition Rehab type: Physical therapy and Occupational therapy Discharge Data Primary Care Provider: Vince Goldstein
[2022-01-14] MEDS: AMOXICILLIN/CLAV 500/125 MG 1 TAB PO (09:06)
[2022-01-14 09:07] VITALS: BP 142/86; PULSE 94; RESP 20; TEMP 35.6; O2SAT 98
--- NOTE | 2022-01-14 09:37 | PC.NURSE ---
Addendum entered by Audrey Nielsen R.N. 01/14/22 14:32: Patient discharged from the hospital, iv taken out and ride here to take [facility] to [facility]. O2 sent with patient in case he needed it. Report given to keke. Addendum entered by Audrey Nielsen R.N. 01/14/22 12:51: Patient is dressed and eating lunch. He voices no complaints. Original Note: Patient is sitting up in his chair, he is pleasant and cooperative. He states that he has been getting up to the bathroom independently, explained to patient that it would probably be better if he called for help and at least we can be there when he does ambulate, he is a bit weak and a larger man. We do not want him to be unsteady and fall down. His legs are swollen with 2+ edema. Heart rate regular and bs cta. Patient wears 1l of 02.
[2022-01-14 09:45] LABS: COVID19 - ADMIT (NP swab/PCR) Negative (Negative)
[2022-01-14 10:11] VITALS: O2SAT 96
--- NOTE | 2022-01-14 10:54 | OT.IPNOTE ---
Checked on pt for showering. Pt already dressed and waiting to go home. Pt open to showering tomorrow AM if ends up pt does not leave today. No charge
--- NOTE | 2022-01-14 13:01 | OT.IP.TRT ---
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) Occupational Therapy Treatment Note M2 OT-IP Current Condition Start: 01/13/22 11:54 Freq: Status: Active Protocol: Document 01/13/22 11:55 CGR (Rec: 01/13/22 12:20 CGR [id number]) Occupational Therapy Current Condition Current Condition Evaluation Date 01/13/22 Treatment Diagnosis sepsis, R sided flank and back pain. Diagnosis Onset Date 01/10/22 M3 OT- IP Subjective and Pain Start: 01/13/22 11:54 Freq: Status: Active Protocol: Document 01/14/22 13:03 CCC (Rec: 01/14/22 13:06 CCC [id number]) OT- Subjective Occupational Therapy Visit Type Type Treatment Note Visit Start Time 12:50 Visit Stop Time 13:01 Total Visit Minutes 11 Occupational Therapy Visit Comments Patient Comments Pt agreed to go over energy conservation and fall prevention strategies with OT. Patient/Caregiver Goals TO get better M4 OT- IP ADL's Start: 01/13/22 11:54 Freq: Status: Active Protocol: Document 01/13/22 11:55 CGR (Rec: 01/13/22 12:20 CGR [id number]) OT [id number] Comments OT Self-Feeding Comments not meal time OT ADL-Grooming General Evaluation Grooming Ability Standby Assistance Areas Needing Assistance Face Washing Comments OT Grooming Comments standing at sink OT ADL-Oral Care General Eval Oral Care Ability Standby Assistance Areas of Assistance Brushing Teeth,Retrieving/Set- Up of Items Comments Oral Care Comments standing at sink OT ADL-Dressing Comments OT Dressing Comments not performed OT ADL-Toileting General Evaluation Toileting Ability Standby Assistance Areas Needing Assistance Manage Clothing,Perform Perineal Hygiene Comments OT Toileting Comments Pt able to sit on toilet for urination. OT ADL-Bathing Comments OT Bathing Comments not performed M5 OT- IP IADL's Start: 01/13/22 11:54 Freq: Status: Active Protocol: Document 01/13/22 11:55 CGR (Rec: 01/13/22 12:20 CGR [id number]) OT-Instrumental Activities of Daily Living Deficits IADL Deficits Identified No Deficits Home Safety Awareness Awareness of Need for Assistance at Home Good Awareness Ability to Problem Solve Emergency Able to Problem Solve Situations Medication Management Medication Management No Deficits Identified Money Management Money Management No Deficits Identified Meal Preparation Meal Preparation Comments Concerns regarding pt's ability to perform safely Transportation Security Screener Transportation Security Screener Comments Concerns regarding pt's ability to perform safely Driving Driving Comments Concerns regarding pt's ability to perform safely M6 OT- IP Functional Cognition Start: 01/13/22 11:54 Freq: Status: Active Protocol: Document 01/13/22 11:55 CGR (Rec: 01/13/22 12:20 CGR [id number]) Cognitive Factors Limiting Selfcare Function Cognitive Ability Level of Alertness Alert Patient Orientation Name,Age,Birthday,Month,Date, Year,Day of Week,Place, Situation Attention Span Ability Capable of Focused Attention, Capable of Sustained Attention Ability to Follow Commands Able to Follow Multi-Step Commands OT- Vision and Hearing OT- Hearing Assessment OT- Hearing Assessment WFL OT- Vision Assessment Visual Acuity WFL Visual Attentiveness WFL Occular Pursuits WFL Visual Convergence WFL Vision Assessment Comments PT states he has had cataract sx recently. Pt has glasses but does not wear them. M7 OT- IP Mobility and Balance Start: 01/13/22 11:54 Freq: Status: Active Protocol: Document 01/13/22 11:55 CGR (Rec: 01/13/22 12:20 CGR [id number]) OT-Transfer Assessment Sit to and From Stand Sit to and from Stand Contact Guard Assistance Transfers Transfer Ability Contact Guard Assistance Technique Transfer Destination Chair,Toilet Transfer Technique Stand Step Pivot Devices Transfer Assistive Devices Gait Belt,Front Wheeled Walker Comments Mobility Comments Pt is able to ambulate to toilet for toileting and perform transfers with CGA and grab bars but of note, pt is SOB with all functional mobility that progressively gets worse the longer he is up . OT- Gait Assessment Gait Gait Assistance Required: Contact Guard Assist Assistive Devices Assistive Device Gait Belt,Front Wheeled Walker OT- Balance Assessment Sitting Balance and Reactions Static Sitting Balance Ability Normal Dynamic Sitting Balance Ability Good M8 OT- IP Objective Assessments Start: 01/13/22 11:54 Freq: Status: Active Protocol: Document 01/13/22 11:55 CGR (Rec: 01/13/22 12:20 CGR [id number]) OT Gross Range of Motion Upper Extremity Range of Motion Assessment Within Functional Limits OT Strength Upper Extremity Strength Assessment Within Functional Limits Comments Strength Comments shlds 4-/5, arms and hands 4+/ 5 OT- Coordination Assessment Upper Extremity Finger to Nose Test Within Functional Limits Finger Tapping Test Within Functional Limits OT-Muscle Tone Assessment Muscle Tone WNL Yes OT Sensation Assessment Comments Summary Comments PT states he has 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 Pt states his palm feels normal. This is his baseline. Edema Edema Absent M9 OT- IP Assessment and Plan Start: 01/13/22 11:54 Freq: Status: Active Protocol: Document 01/14/22 13:03 [facility] (Rec: 01/14/22 13:06 [facility] [id number]) OT Summary Assessment and Plan Potential Rehabilitation Potential Excellent Analytic Complexity at Evaluation Moderate Summary OT Impairments Pain,Strength,Sensation, Functional Mobility,Grooming, Dressing,Toileting,Bathing, Toilet Transfers,Shower Transfers,Activity Tolerance Progress Towards Goals Progressing Toward Goals Assessment Summary Able to go over energy conservation and fall prevention strategies for pt. Pt looking to go to skilled rehab today. Goals Grooming Goal Independent Dressing Goal Independent,Lute Packer Or Applier,Sock Aid Toileting Goal Independent Bathing Goal Independent Toilet Transfer Goal Independent Shower Transfer Goal Independent Days to Meet Goals 19 Frequency of Treatment Frequency Of Treatment Once a Day Treatment Plan OT Treatment Plan ADL Training,Functional Mobility,Therapeutic Exercises ,Patient/Family Education, Discharge Planning Other Treatment Recommendations and Next shower if still here Treatment Focus Discharge Recommendations OT Discharge Recommendations SNF Rehab Transportation Needs at Discharge Private Vehicle,Wheelchair/ Cabulance
--- NOTE | 2022-01-14 14:37 | PT-IP ANOTE ---
Attempted to check on pt at 14:33, pt already d/c.
--- NOTE | 2022-01-14 14:59 | CM.DANOTE ---
DCP/continued: Reviewed chart. Received call from Analy at [facility] she reports that she can accept patient today. MANAGER CODING asked MARYELLEN/Kimberly to assist with coordination. Met with patient to provide him with the news. Patient continues to be aware and agreeable to d/c plan. PASSR completed. Per [facility] they will arrange transport. No additional needs identified. P: [facility] today. PATIENCE White
== END 2022-01-14 14:33 | DRG 872 ==
LOC: ED 08:07 → AC 12:02
PROVIDERS: Admitting Provider Internal Medicine; Emergency Provider Emergency Medicine; PCP Internal Medicine; Referring Provider Emergency Medicine; Visit Provider Internal Medicine
DX: A41.9 Sepsis, unspecified organism (principal); N12 Tubulo-interstitial nephritis, not specified as acute or chronic; Z68.43 Body mass index [BMI] 50.0-59.9, adult; Z16.24 Resistance to multiple antibiotics; E66.2 Morbid (severe) obesity with alveolar hypoventilation; L97.819 Non-pressure chronic ulcer of other part of right lower leg with unspecified severity; R65.20 Severe sepsis without septic shock; K75.89 Other specified inflammatory liver diseases; D72.819 Decreased white blood cell count, unspecified; D64.9 Anemia, unspecified; B96.4 Proteus (mirabilis) (morganii) as the cause of diseases classified elsewhere; J98.4 Other disorders of lung; G25.81 Restless legs syndrome; R09.02 Hypoxemia; R32 Unspecified urinary incontinence; Z20.822 Contact with and (suspected) exposure to COVID-19; Z85.46 Personal history of malignant neoplasm of prostate; Z66 Do not resuscitate
CPT/HCPCS: 36415; 74177; 76705; 80048; 80053; 80074; 80076; 80320; 80329; 81001; 82550; 82553; 83605; 83690; 84145; 84484; 85007; 85025; 87040; 87077; 87086; 87150; 87186; 87205; 87635; 90471; 90670; 93005; 94618; 94660; 94760; 96365; 96375; 97110; 97162; 97166; 97530; 97535; 99223; 99232; 99238; 99285; C9803; G0480; J0696; J1170

== ENCOUNTER → 2022-02-04 11:04 | Outpatient (CLI) | payer MEDICARE, MEDICAID, SELFPAY ==
[2022-01-10 13:33] VITALS: BMI 58.6
[2022-02-04 13:00] LABS: HEMOLYSIS < 15 (0-50); Iron 61 ug/dL (49-181)
[2022-02-04 13:13] LABS: Percent Iron Saturation 29 % (20-50); Total Iron Binding Capacity 214 ug/dL (261-462); Transferrin 149 mg/dL (206-381)
[2022-02-05 05:53] LABS: Haptoglobin 310 mg/dL (32-363)
[2022-02-05 07:30] LABS: Alanine Aminotransferase 32 IU/L (<50); Albumin 3.3 g/dL (3.5-5.0); Albumin Globulin Ratio 0.8 (1.0-2.8); Alkaline Phosphatase 108 U/L (38-126); Aspartate Aminotransferase 34 IU/L (17-59); BUN Creatinine Ratio 16.2 (6-22); Bilirubin Total 0.8 mg/dL (0.2-1.3); Bilirubin Unconjugated 0.7 mg/dL (0.0-1.1); Blood Urea Nitrogen 12 mg/dL (9-20); Calcium 8.6 mg/dL (8.4-10.2); Carbon Dioxide 28 mmol/L (22-32); Chloride 105 mmol/L (98-107); Estimated Glomerular Filt Rate > 60 mL/min (>60); Globulin 3.9 g/dL (1.7-4.1); Glucose 117 mg/dL (80-110); HEMOLYSIS < 15 (0-50); Hemoglobin A1C% w Est Avg Glu 5.7 % (4.0-6.0); Lactate Dehydrogenase 535 U/L (313-618); Potassium 4.2 mmol/L (3.4-5.1); Sodium 139 mmol/L (137-145); Total Protein 7.2 g/dL (6.3-8.2)
[2022-02-05 08:08] LABS: Ferritin 195 ng/mL (18-464)
[2022-02-05 08:39] LABS: Folate 14.1 ng/mL (2.76-20.0); Vitamin B12 994 pg/mL (239-931)
== END ==
PROVIDERS: PCP Internal Medicine; Referring Provider Internal Medicine; Visit Provider Internal Medicine
DX: R73.02 Impaired glucose tolerance (oral) (principal); K76.0 Fatty (change of) liver, not elsewhere classified; D64.9 Anemia, unspecified; R73.9 Hyperglycemia, unspecified
CPT/HCPCS: 36415; 80048; 80076; 82607; 82728; 82746; 83010; 83036; 83540; 83550; 83615

== ENCOUNTER → 2022-03-14 12:37 | Outpatient (CLI) | payer MEDICARE, MEDICAID, SELFPAY ==
[2022-02-27 14:20] VITALS: BMI 58.6
[2022-03-14 12:49] LABS: Appearance Urine UA CLOUDY; Bilirubin Urine UA NEGATIVE (NEGATIVE); Color Urine UA YELLOW; Glucose Urine UA NEGATIVE (Negative); Ketones Urine UA NEGATIVE (NEGATIVE); Leukocyte Esterase Urine UA 2+ (NEGATIVE); Nitrite Urine UA NEGATIVE (Negative); Occult Blood Urine UA 2+ (Negative); Protein Urine UA 1+ (Negative); Specific Gravity Urine UA 1.015 (1.000-1.035); Urobilinogen Urine UA 0.2 E.U./dL (0.2)
[2022-03-14 12:55] LABS: Bacteria Urine Many (>30); Culture Indicated Urine Specimen Cultured; RBC Urine 5-10/HPF (0-5/HPF); WBC Urine >100/HPF (0-5/HPF)
== END ==
PROVIDERS: Internal Medicine; PCP Internal Medicine; Referring Provider Internal Medicine; Visit Provider Internal Medicine
DX: N39.0 Urinary tract infection, site not specified (principal)
CPT/HCPCS: 81001; 87077; 87086; 87186

== ENCOUNTER → 2022-04-25 15:05 | Outpatient (CLI) | payer MEDICARE, MEDICAID, SELFPAY ==
[2022-04-08 16:43] VITALS: BMI 58.6
[2022-04-25 15:42] LABS: Appearance Urine UA CLEAR; Bilirubin Urine UA NEGATIVE (NEGATIVE); Color Urine UA YELLOW; Glucose Urine UA NEGATIVE (Negative); Ketones Urine UA NEGATIVE (NEGATIVE); Leukocyte Esterase Urine UA 3+ (NEGATIVE); Nitrite Urine UA NEGATIVE (Negative); Occult Blood Urine UA 1+ (Negative); Protein Urine UA TRACE (Negative); Specific Gravity Urine UA 1.015 (1.000-1.035); Urobilinogen Urine UA 0.2 E.U./dL (0.2)
[2022-04-25 15:49] LABS: Bacteria Urine Moderate (10-30); Culture Indicated Urine Specimen Cultured; RBC Urine 1-5/HPF (0-5/HPF); WBC Urine >100/HPF (0-5/HPF)
== END ==
PROVIDERS: PCP Internal Medicine; Referring Provider Internal Medicine; Visit Provider Internal Medicine
DX: N39.0 Urinary tract infection, site not specified (principal)
CPT/HCPCS: 81001; 87077; 87086

== ENCOUNTER → 2022-06-02 10:30 | Outpatient (CLI) | payer MEDICARE, MEDICAID, SELFPAY ==
[2022-04-08 16:43] VITALS: BMI 58.6
[2022-06-03 05:53] LABS: PSA Ultrasensitive 0.013 ng/mL (0.000-4.000)
== END ==
PROVIDERS: PCP Internal Medicine; Referring Provider Internal Medicine; Visit Provider Internal Medicine
DX: C61 Malignant neoplasm of prostate (principal)
CPT/HCPCS: 36415; 84153

== ENCOUNTER 2022-06-20 13:03 | Inpatient (IN) | payer MEDICARE, MEDICAID, SELFPAY ==
[2022-04-08 16:43] VITALS: BMI 58.6
[2022-06-20] VITALS (12 sets, daily range): BP systolic 131–154; BP diastolic 63–71; PULSE 101–126; RESP 18–26; TEMP 36.3–38.2; O2SAT 91–95; BMI 60.8; BMI 60.5
--- NOTE | 2022-06-20 13:23 | DI.RAD.S_ITS ---
PROCEDURE: XR CHEST 1V INDICATIONS: suspected sepsis TECHNIQUE: One view of the chest was acquired. COMPARISON: [facility], CHEST 1 VIEW, 10/10/2016, 6:17. [facility], , CHEST 2 VIEW, 06/07/2014, 15:35. FINDINGS: Surgical changes and devices: None. Lungs and pleura: Lung volumes are low. Minimal bibasilar pulmonary opacities are present. No pleural effusions or pneumothorax. Mediastinum: Mediastinal contours appear normal. Heart size is normal. Bones and chest wall: No suspicious bony lesions. Overlying soft tissues appear unremarkable. IMPRESSION: Lung volumes are low. Minimal bibasilar pulmonary opacities are present that probably represent atelectasis, however aspiration or pneumonia difficult to exclude. Dictated by: Dale Murphy M.D. on 06/20/2022 at 13:46 Approved by: Dale Murphy M.D. on 06/20/2022 at 13:49
[2022-06-20 13:42] LABS: Add Manual Diff / Slide Review NO; Basophils Absolute Auto 0 /uL (0-100); Basophils Percent Auto 0.3 % (0-2); Eosinophils Absolute Auto 0 /uL (0-450); Eosinophils Percent Auto 0.2 % (2-4); Hematocrit 36.4 % (41-53); Lymphocytes Absolute Auto 500 /uL (1100-4500); Lymphocytes Percent Auto 6.3 % (25-40); Mean Corpuscular HGB Conc 32.9 % (30-36); Mean Corpuscular Hemoglobin 29.8 PG (26-34); Mean Corpuscular Volume 90.5 fL (80-100); Monocytes Absolute Auto 500 /uL (0-900); Monocytes Percent Auto 7.5 % (3-14); Neutrophils Absolute Auto 6200 /uL (1500-7000); Neutrophils Percent Auto 85.7 % (50-75); Platelet Count 88 X10^3/uL (150-400); Red Blood Cell Count 4.02 X10^6/uL (4.5-5.9); Red Cell Distribution Width 17.4 % (11.6-14.8); White Blood Cell Count 7.2 X10^3/uL (4.5-11.0)
--- NOTE | 2022-06-20 13:43 | ED.MALEGU ---
HPI - Male Genitourinary General Chief complaint: Urogenital-Male Stated complaint: Fever, no urination, hx of bladder infections Time Seen by Provider: 06/20/22 13:28 Source: patient Mode of arrival: Ambulatory History of Present Illness HPI Narrative: Patient here for fever dysuria and frequency since yesterday. Has history of frequent UTIs. Admitted January [address] Vince Goldstein for urosepsis. Likely pyelonephritis. Specimen grew out Proteus. Patient went home on Cipro and Augmentin. Has been doing well but continues to have UTIs. Seen by Dr. Goldstein in April. He was referred to Dr. Prado, urologist in [place]. Patient states no significant finding on that visit. Last night started with these symptoms again. Related Data Home Medications Medication Instructions Recorded Confirmed doxazosin 8 mg tablet 8 mg PO BEDTIME 06/26/20 06/20/22 oxybutynin chloride 5 mg 5 mg PO BEDTIME 06/26/20 06/20/22 tablet,extended release 24 hr ropinirole 2 mg tablet 2 mg PO BEDTIME 06/26/20 06/20/22 trazodone 50 mg tablet 50 mg PO DAILY 06/26/20 06/20/22 nitrofurantoin macrocrystal 100 mg 100 mg PO BID 06/20/22 06/20/22 capsule Previous Rx's Medication Instructions Recorded Disabled Parking #1 ea 06/26/20 food supplemt, lactose-reduced 1 ea PO QID #28,440 mL 02/27/22 (Ensure Original oral liquid) sulfamethoxazole 800 1 tab PO BID #14 tabs 03/14/22 mg-trimethoprim 160 mg tablet furosemide 20 mg tablet 20 mg PO BID #180 tabs 05/14/22 potassium chloride 10 mEq 10 meq PO DAILY #90 tabs 05/14/22 tablet,extended release Allergies Allergy/AdvReac Type Severity Reaction Status Date / Time No Known Drug Allergies Allergy Verified 04/25/22 14:53 Review of Systems Review of Systems Narrative: GENERAL: Positive for chills, fatigue, malaise, fever, sweats. HEENT: Denies sinus pain, ear pain, sore throat RESPIRATORY: Denies dyspnea, cough CARDIOVASCULAR: Denies chest pain, palpitations GASTROINTESTINAL: Denies nausea, vomiting, abdominal pain : Denies dysuria, frequency, negative for hematuria MUSCULOSKELETAL: denies muscle or bony pain SKIN: Denies rash, skin lesions NEUROLOGIC: Denies weakness, numbness ROS Unobtainable: All systems reviewed & are unremarkable except as noted in HPI and below Patient History Medical History Anemia of chronic disease Chronic venous insufficiency (04/10/16) Eczema (~1996) Frequent UTI (~2017) 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) History of kidney stones History of prostate cancer (~2016) Lower urinary tract symptoms Mixed hyperlipidemia Morbid obesity (08/16/15) Obstructive sleep apnea of adult (~2013) Pancreatitis (~1995) Phimosis Primary insomnia (08/16/15) Recurrent sinusitis (~2007) Restless leg syndrome (~2013) Restrictive lung disease (08/16/15) Tinnitus (~1972) Surgical History Anesthesia History of common bile duct surgery (~1997) Status post knee surgery (~1993) Family History Brother Prostate cancer Liver cancer Father Parkinson disease Grandfather Hepatitis Grandfather History of heart disease Grandmother Cancer Social History household members: family Smoking Status: Never smoker alcohol intake: current Smoking Status: Never smoker alcohol intake frequency: a few times a week Substance Use Type: does not use Exam Narrative Exam Narrative: GENERAL: in no distress, not toxic not dyspneic HEAD: Normocephalic. EYES: Pupils equal round No scleral icterus. ENT: Mucous membranes moist. NECK: Trachea midline. CARDIOVASCULAR: Regular rate and rhythm without murmurs, tachycardic RESPIRATORY: Clear to auscultation. Breath sounds equal bilaterally. No wheezes, rales, or rhonchi. GASTROINTESTINAL: Abdomen soft, non-tender EXTREMITIES: No gross deformities. BACK: No flank tenderness. NEURO: AOx4. SKIN: Warm and dry PSYCH: Not anxious, is cooperative Initial Vital Signs Initial Vital Signs: Vital Signs Temperature 100.7 F H 06/20/22 13:09 Pulse Rate 126 H 06/20/22 13:09 Respiratory Rate 20 06/20/22 13:09 Blood Pressure 134/63 06/20/22 13:09 Pulse Oximetry 94 06/20/22 13:09 Oxygen Delivery Method 06/20/22 13:09 Course Course Course Narrative: No new issues during course of stay EKG heart rate and fever noted. Will repeat EKG after fever control and IV fluid Decision to Admit Date: 06/20/22 Decision to Admit time: 13:46 Orders Ordered: ED Orders 06/20/22 13:20 Complete Blood Count AUTO DIFF Stat Comprehensive Metabolic Panel Stat Lactate (Lactic Acid) Stat Lipase Stat Procalcitonin Stat 06/20/22 13:23 XR chest 1V Stat EKG-12 Lead Stat 06/20/22 14:19 Blood Culture Stat 06/20/22 14:23 CT abdomen pelvis w con Stat 06/20/22 15:35 Urinalysis and Microscopic Stat Urine Culture Stat 06/20/22 16:11 COVID19 -Nasal RAPID/Pre-Proc Stat Acetaminophen (Acetaminophen 325 Mg Tablet) 650 mg PO Q6HR PRN PRN Reason: Fever/Mild Pain (1-3) Doxazosin Mesylate (Doxazosin 4 Mg Tablet) 8 mg PO BEDTIME CHHAYA Enoxaparin Sodium (Enoxaparin 40 Mg/0.4 Ml Syringe) 40 mg SUBCUT DAILY CHHAYA Sodium Chloride (Normal Saline 0.45%) 1,000 mls @ 100 mls/hr IV CONT CHHAYA Last Admin: 06/20/22 18:12 Dose: 100 mls/hr Documented By: LILIAN Ceftriaxone Sodium 2,000 mg/ (Sodium Chloride) 100 mls @ 200 mls/hr IV 1300 CHHAYA Ondansetron HCl (Ondansetron 4 Mg/2 Ml Inj) 4 mg IV Q8HR PRN PRN Reason: Nausea And Vomiting Oxybutynin Chloride (Oxybutynin 5 Mg Er Tab) 5 mg PO BEDTIME CHHAYA Ropinirole HCl (Ropinirole 1 Mg Tablet) 2 mg PO BEDTIME CHHAYA Trazodone HCl (Trazodone 50 Mg Tablet) 50 mg PO DAILY CHHAYA Discontinued Medications Acetaminophen (Acetaminophen 325 Mg Tablet) 650 mg PO NOW ONE Stop: 06/20/22 13:37 Last Admin: 06/20/22 13:47 Dose: 650 mg Documented By: BOBBI Sodium Chloride (Normal Saline 0.9%) 1,000 mls @ 1,000 mls/hr IV BOLUS ONE Stop: 06/20/22 14:22 Last Infusion: 06/20/22 14:50 Dose: 0 mls/hr Documented By: Admin: 06/20/22 13:48 Dose: 1,000 mls/hr Documented By: BOBBI Ceftriaxone Sodium 2,000 mg/ (Sodium Chloride) 100 mls @ 200 mls/hr IV NOW ONE Stop: 06/20/22 13:41 Last Infusion: 06/20/22 14:37 Dose: 0 mls/hr Documented By: Admin: 06/20/22 13:48 Dose: 200 mls/hr Documented By: BOBBI Sodium Chloride (Normal Saline 0.9%) 1,000 mls @ 1,000 mls/hr IV BOLUS ONE Stop: 06/20/22 17:12 Last Infusion: 06/20/22 18:26 Dose: 0 mls/hr Documented By: Admin: 06/20/22 16:54 Dose: 1,000 mls/hr Documented By: FILOMENA Ceftriaxone Sodium 2,000 mg/ (Sodium Chloride) 100 mls @ 200 mls/hr IV Q24H [facility] Last Admin: 06/20/22 18:27 Dose: Not Given Documented By: LILIAN Ibuprofen (Ibuprofen 400 Mg Tablet) 600 mg PO NOW ONE Stop: 06/20/22 16:14 Last Admin: 06/20/22 18:26 Dose: Not Given Documented By: LILIAN Morphine Sulfate (Morphine 4 Mg/Ml Inj) 4 mg IV NOW ONE Stop: 06/20/22 16:11 Last Admin: 06/20/22 16:21 Dose: 4 mg Documented By: FILOMENA Ondansetron HCl (Ondansetron 4 Mg/2 Ml Inj) 4 mg IV NOW ONE Stop: 06/20/22 16:11 Last Admin: 06/20/22 16:21 Dose: 4 mg Documented By: FILOMENA Reevaluation(s) Reevaluation #1: Reviewed results with patient. Agrees for admission. Time: 16:13 Consultations Consultation #1: Spoke with Dr. Almendarez, on-call for Dr. Goldstein, he will admit patient. Patient not requiring ICU at this time. Not hypotensive. Heart rate has improved 126 down to 109. Fever has resolved Time: 16:51 Vital Signs Vital signs: Vital Signs - 8 hr 06/20/22 13:09 06/20/22 13:33 06/20/22 13:52 Temperature 100.7 F H Pulse Rate 126 H 125 H 123 H Respiratory Rate 20 26 H Blood Pressure 134/63 Pulse Oximetry 94 93 93 Oxygen Delivery Method Room Air Room Air 06/20/22 13:52 06/20/22 14:00 06/20/22 14:00 Temperature Pulse Rate 121 H Respiratory Rate Blood Pressure 136/63 138/65 Pulse Oximetry 92 Oxygen Delivery Method 06/20/22 14:30 06/20/22 14:30 06/20/22 14:44 Temperature Pulse Rate 120 H 123 H Respiratory Rate 25 H 24 Blood Pressure 142/65 H Pulse Oximetry 94 94 Oxygen Delivery Method 06/20/22 14:44 06/20/22 15:00 06/20/22 16:09 Temperature Pulse Rate 109 H 113 H Respiratory Rate 24 Blood Pressure 154/71 H Pulse Oximetry 93 95 Oxygen Delivery Method 06/20/22 16:30 06/20/22 17:00 Temperature Pulse Rate 110 H 110 H Respiratory Rate 24 24 Blood Pressure Pulse Oximetry 91 93 Oxygen Delivery Method MDM - Male Genitourinary Differential Diagnosis Differential diagnosis: Likely urinary tract infection, acute retention of urine and other (Pyelonephritis/urosepsis) Lab Data Result diagrams: 06/20/22 13:20 06/20/22 13:20 Labs: Lab Results 06/20/22 06/20/22 06/20/22 Range/Units 13:20 13:20 13:20 WBC 7.2 (4.5-11.0) X10^3/uL RBC 4.02 L (4.5-5.9) X10^6/uL Hgb 12.0 L (13.5-17.5) g/dL Hct 36.4 L (41-53) % MCV 90.5 (80-100) fL MCH 29.8 (26-34) PG MCHC 32.9 (30-36) % RDW 17.4 H (11.6-14.8) % Plt Count 88 L (150-400) X10^3/uL Neut % (Auto) 85.7 H (50-75) % Lymph % (Auto) 6.3 L (25-40) % [place] % (Auto) 7.5 (3-14) % Eos % (Auto) 0.2 L (2-4) % Baso % (Auto) 0.3 (0-2) % Neut # (Auto) 6200 (4312-8642) /uL Lymph # (Auto) 500 L (4583-4986) /uL [place] # (Auto) 500 (0-900) /uL Eos # (Auto) 0 (0-450) /uL Baso # (Auto) 0 (0-100) /uL Sodium 135 L (137-145) mmol/L Potassium 4.0 (3.4-5.1) mmol/L Chloride 100 (98-107) mmol/L Carbon Dioxide 27 (22-32) mmol/L BUN 8 L (9-20) mg/dL Creatinine 0.72 (0.66-1.25) mg/dL Estimated GFR > 60 (>60) mL/min BUN/Creatinine Ratio 11.1 (6-22) Glucose 137 H (80-110) mg/dL Lactate 3.7 H (0.7-2.1) mmol/L Calcium 8.6 (8.4-10.2) mg/dL Total Bilirubin 1.4 H (0.2-1.3) mg/dL AST 41 (17-59) IU/L ALT 39 (<50) IU/L Alkaline Phosphatase 110 (38-126) U/L Total Protein 7.7 (6.3-8.2) g/dL Albumin 3.7 (3.5-5.0) g/dL Globulin 4.0 (1.7-4.1) g/dL Albumin/Globulin Ratio 0.9 L (1.0-2.8) Lipase 42 (23-300) U/L Procalcitonin 0.18 (<0.5) ng/mL Urine Color Urine Appearance Urine pH (4.5-8.0) Ur Specific [place] (1.000-1.035) Urine Protein (Negative) Urine Glucose (UA) (Negative) g/dL Urine Ketones (NEGATIVE) Urine Occult Blood (Negative) Urine Nitrate (Negative) Urine Bilirubin (NEGATIVE) Urine Urobilinogen (0.2) E.U./dL Ur Leukocyte Esterase (NEGATIVE) Urine RBC (0-5/HPF) Urine WBC (0-5/HPF) Ur Squamous Epith Cells (0-5/HPF) Amorphous Sediment Urine Bacteria (None) Urine Mucus (Negative) Ur Culture Indicated? SARS-CoV-2 (PCR) (Negative) 06/20/22 06/20/22 06/20/22 Range/Units 13:20 15:35 15:53 WBC (4.5-11.0) X10^3/uL RBC (4.5-5.9) X10^6/uL Hgb (13.5-17.5) g/dL Hct (41-53) % MCV (80-100) fL MCH (26-34) PG MCHC (30-36) % RDW (11.6-14.8) % Plt Count (150-400) X10^3/uL Neut % (Auto) (50-75) % Lymph % (Auto) (25-40) % [place] % (Auto) (3-14) % Eos % (Auto) (2-4) % Baso % (Auto) (0-2) % Neut # (Auto) (6847-9031) /uL Lymph # (Auto) (1607-0256) /uL [place] # (Auto) (0-900) /uL Eos # (Auto) (0-450) /uL Baso # (Auto) (0-100) /uL Sodium (137-145) mmol/L Potassium (3.4-5.1) mmol/L Chloride (98-107) mmol/L Carbon Dioxide (22-32) mmol/L BUN (9-20) mg/dL Creatinine (0.66-1.25) mg/dL Estimated GFR (>60) mL/min BUN/Creatinine Ratio (6-22) Glucose (80-110) mg/dL Lactate 2.2 H (0.7-2.1) mmol/L Calcium (8.4-10.2) mg/dL Total Bilirubin (0.2-1.3) mg/dL AST (17-59) IU/L ALT (<50) IU/L Alkaline Phosphatase (38-126) U/L Total Protein (6.3-8.2) g/dL Albumin (3.5-5.0) g/dL Globulin (1.7-4.1) g/dL Albumin/Globulin Ratio (1.0-2.8) Lipase (23-300) U/L Procalcitonin Cancelled (<0.5) ng/mL Urine Color Yellow Urine Appearance Turbid Urine pH 6.0 (4.5-8.0) Ur Specific [place] 1.015 (1.000-1.035) Urine Protein 1+ H (Negative) Urine Glucose (UA) Negative (Negative) g/dL Urine Ketones Negative (NEGATIVE) Urine Occult Blood 3+ H (Negative) Urine Nitrate Negative (Negative) Urine Bilirubin Negative (NEGATIVE) Urine Urobilinogen 0.2 (0.2) E.U./dL Ur Leukocyte Esterase 3+ H (NEGATIVE) Urine RBC 5-10/hpf H (0-5/HPF) Urine WBC >100/hpf H (0-5/HPF) Ur Squamous Epith Cells 1-5 /hpf (0-5/HPF) Amorphous Sediment 1+ Urine Bacteria Many (>30) H (None) Urine Mucus 2+ H (Negative) Ur Culture Indicated? Specimen cultured SARS-CoV-2 (PCR) (Negative) 06/20/22 Range/Units 16:11 WBC (4.5-11.0) X10^3/uL RBC (4.5-5.9) X10^6/uL Hgb (13.5-17.5) g/dL Hct (41-53) % MCV (80-100) fL MCH (26-34) PG MCHC (30-36) % RDW (11.6-14.8) % Plt Count (150-400) X10^3/uL Neut % (Auto) (50-75) % Lymph % (Auto) (25-40) % [place] % (Auto) (3-14) % Eos % (Auto) (2-4) % Baso % (Auto) (0-2) % Neut # (Auto) (2343-5946) /uL Lymph # (Auto) (1307-0444) /uL [place] # (Auto) (0-900) /uL Eos # (Auto) (0-450) /uL Baso # (Auto) (0-100) /uL Sodium (137-145) mmol/L Potassium (3.4-5.1) mmol/L Chloride (98-107) mmol/L Carbon Dioxide (22-32) mmol/L BUN (9-20) mg/dL Creatinine (0.66-1.25) mg/dL Estimated GFR (>60) mL/min BUN/Creatinine Ratio (6-22) Glucose (80-110) mg/dL Lactate (0.7-2.1) mmol/L Calcium (8.4-10.2) mg/dL Total Bilirubin (0.2-1.3) mg/dL AST (17-59) IU/L ALT (<50) IU/L Alkaline Phosphatase (38-126) U/L Total Protein (6.3-8.2) g/dL Albumin (3.5-5.0) g/dL Globulin (1.7-4.1) g/dL Albumin/Globulin Ratio (1.0-2.8) Lipase (23-300) U/L Procalcitonin (<0.5) ng/mL Urine Color Urine Appearance Urine pH (4.5-8.0) Ur Specific [place] (1.000-1.035) Urine Protein (Negative) Urine Glucose (UA) (Negative) g/dL Urine Ketones (NEGATIVE) Urine Occult Blood (Negative) Urine Nitrate (Negative) Urine Bilirubin (NEGATIVE) Urine Urobilinogen (0.2) E.U./dL Ur Leukocyte Esterase (NEGATIVE) Urine RBC (0-5/HPF) Urine WBC (0-5/HPF) Ur Squamous Epith Cells (0-5/HPF) Amorphous Sediment Urine Bacteria (None) Urine Mucus (Negative) Ur Culture Indicated? SARS-CoV-2 (PCR) Negative (Negative) Imaging Data CT scan - abdomen/pelvis: Radiologist's Impression: [address] [address] [address] Scan Report Signed Patient: Jose Francisco Akers MR#: [id number] : 1955 Acct:[id number] Age/Sex: 66 / M Date of Service: 06/20/22 Loc: ED Accession Number: [id number] ?? Procedure: CT abdomen pelvis w con Ordering Provider: Jasbir Martin MD PROCEDURE:? CT ABDOMEN PELVIS W CON ? INDICATIONS:? IV contrast only/Abdominal pain/flank pain ? TECHNIQUE:? After the administration of intravenous contrast, axial sections acquired from the lung bases to the pubic symphysis.? Coronal and sagittal reformats were performed.? For radiation dose reduction, the following was used:? automated exposure control, adjustment of mA and/or kV according to patient size.? ? COMPARISON:? [facility], CT, CT ABDOMEN PELVIS W CON, 01/10/2022, 9:34. ? FINDINGS:? Image quality:? Adequate. ? Lung bases:? No pleural effusion. ? ABDOMEN: Liver:? Diffusely hypoattenuating, could reflect a degree of fatty infiltration.? No suspicious focal lesion identified. Gallbladder:? No radiopaque gallstones.? ? Biliary ducts:? Unremarkable.? ? Pancreas:? Unremarkable.? ? Spleen:? Unremarkable.? ? Adrenal Glands:? Unremarkable.? ? Kidneys and Ureters:? No hydronephrosis.? A few nonobstructing stones are present in the left kidney as before, largest measures 8 millimeters at the mid kidney.? ? ? Stomach and Bowel:? No bowel obstruction.? Moderate predominantly sigmoid colonic diverticulosis without evidence of acute diverticulitis.? Normal appendix. Peritoneum:? No abnormal intraperitoneal fluid.? No free air.? ? Abdominal Nodes:? No retroperitoneal or mesenteric adenopathy by size criteria.? Vessels:? Aorta and inferior vena cava are normal in size.? ? PELVIS: Pelvic Organs:? Prostate gland fiducial markers. Bladder:? Unremarkable.? ? Pelvic Nodes: No enlarged lymph nodes.? Miscellaneous: No hernias are seen. ? ? ? Bones:? Multilevel degenerative change of the visualized spine.? Changes of DISH are present. ? ? IMPRESSION:? 1. No acute appearing abnormality visualized within the abdomen or pelvis. 2. A few nonobstructing stones are present in the left kidney as before.? No hydronephrosis. 3. Colonic diverticulosis without evidence of acute diverticulitis.? ? ? Dictated by: Dale Murphy M.D. on 06/20/2022 at 14:46 ? ? Approved by: Dale Murphy M.D. on 06/20/2022 at 15:02 ? ECG Data Interpretation: Wide complex uniform tachycardia, right bundle branch block. Rate 124 MDM Narrative Medical decision making narrative: Appropriate for admission. Patient has high risk for urosepsis. At this time imaging/CT scan is reassuring. However laboratory markers do indicate for early sepsis. IV fluids and antibiotics have been started. 2 L normal saline started in the emergency department. Rocephin started. Discharge Plan Departure Patient Disposition: Admitted As Inpatient Clinical Impression: Urinary tract infection Admit Date/Time: 06/20/22 17:01 Admit Provider: Abdi Almendarez
[2022-06-20] MEDS: ACETAMINOPHEN 325 MG TABLET 650 MG PO (13:47)
[2022-06-20] MEDS: cefTRIAXone 2,000 MG in SODIUM CHLORIDE 0.9% 100 ML 200 MG IV (13:48)
[2022-06-20] MEDS: SODIUM CHLORIDE 0.9% 1,000 ML 1000 ML IV ×2 (13:48→16:54)
[2022-06-20 13:59] LABS: Lactate (Lactic Acid) 3.7 mmol/L (0.7-2.1)
[2022-06-20 14:00] LABS: Alanine Aminotransferase 39 IU/L (<50); Albumin 3.7 g/dL (3.5-5.0); Albumin Globulin Ratio 0.9 (1.0-2.8); Alkaline Phosphatase 110 U/L (38-126); Aspartate Aminotransferase 41 IU/L (17-59); BUN Creatinine Ratio 11.1 (6-22); Bilirubin Total 1.4 mg/dL (0.2-1.3); Blood Urea Nitrogen 8 mg/dL (9-20); Calcium 8.6 mg/dL (8.4-10.2); Carbon Dioxide 27 mmol/L (22-32); Chloride 100 mmol/L (98-107); Estimated Glomerular Filt Rate > 60 mL/min (>60); Glucose 137 mg/dL (80-110); HEMOLYSIS < 15 (0-50); Lipase 42 U/L (23-300); Sodium 135 mmol/L (137-145); Total Protein 7.7 g/dL (6.3-8.2)
[2022-06-20 14:17] LABS: Procalcitonin 0.18 ng/mL (<0.5)
--- NOTE | 2022-06-20 14:23 | DI.CT.S_ITS ---
PROCEDURE: CT ABDOMEN PELVIS W CON INDICATIONS: IV contrast only/Abdominal pain/flank pain TECHNIQUE: After the administration of intravenous contrast, axial sections acquired from the lung bases to the pubic symphysis. Coronal and sagittal reformats were performed. For radiation dose reduction, the following was used: automated exposure control, adjustment of mA and/or kV according to patient size. COMPARISON: [facility], CT, CT ABDOMEN PELVIS W CON, 01/10/2022, 9:34. FINDINGS: Image quality: Adequate. Lung bases: No pleural effusion. ABDOMEN: Liver: Diffusely hypoattenuating, could reflect a degree of fatty infiltration. No suspicious focal lesion identified. Gallbladder: No radiopaque gallstones. Biliary ducts: Unremarkable. Pancreas: Unremarkable. Spleen: Unremarkable. Adrenal Glands: Unremarkable. Kidneys and Ureters: No hydronephrosis. A few nonobstructing stones are present in the left kidney as before, largest measures 8 millimeters at the mid kidney. Stomach and Bowel: No bowel obstruction. Moderate predominantly sigmoid colonic diverticulosis without evidence of acute diverticulitis. Normal appendix. Peritoneum: No abnormal intraperitoneal fluid. No free air. Abdominal Nodes: No retroperitoneal or mesenteric adenopathy by size criteria. Vessels: Aorta and inferior vena cava are normal in size. PELVIS: Pelvic Organs: Prostate gland fiducial markers. Bladder: Unremarkable. Pelvic Nodes: No enlarged lymph nodes. Miscellaneous: No hernias are seen. Bones: Multilevel degenerative change of the visualized spine. Changes of DISH are present. IMPRESSION: 1. No acute appearing abnormality visualized within the abdomen or pelvis. 2. A few nonobstructing stones are present in the left kidney as before. No hydronephrosis. 3. Colonic diverticulosis without evidence of acute diverticulitis. Dictated by: Dale Murphy M.D. on 06/20/2022 at 14:46 Approved by: Dale Murphy M.D. on 06/20/2022 at 15:02
[2022-06-20 15:38] LABS: Reflexed Lactate in 2 Hours Y
[2022-06-20 15:43] LABS: Appearance Urine UA TURBID; Bilirubin Urine UA NEGATIVE (NEGATIVE); Color Urine UA YELLOW; Glucose Urine UA NEGATIVE (Negative); Ketones Urine UA NEGATIVE (NEGATIVE); Leukocyte Esterase Urine UA 3+ (NEGATIVE); Nitrite Urine UA NEGATIVE (Negative); Occult Blood Urine UA 3+ (Negative); Protein Urine UA 1+ (Negative); Specific Gravity Urine UA 1.015 (1.000-1.035); Urobilinogen Urine UA 0.2 E.U./dL (0.2)
[2022-06-20 15:59] LABS: RBC Urine 5-10/HPF (0-5/HPF); Squamous Epithelial Cell Urine 1-5 /HPF (0-5/HPF); WBC Urine >100/HPF (0-5/HPF)
[2022-06-20 16:00] LABS: Amorphous Sediment Urine 1+; Bacteria Urine Many (>30); Culture Indicated Urine Specimen Cultured; Mucus Urine 2+ (Negative)
[2022-06-20 16:13] LABS: COVID19 -Nasal RAPID Negative (Negative)
[2022-06-20] MEDS: MORPHINE 4 MG/ML INJ IV (16:21)
[2022-06-20] MEDS: ONDANSETRON 4 MG/2 ML INJ IV (16:21)
[2022-06-20 16:38] LABS: Lactate 2HR (Lactic Acid Rflx) 2.2 mmol/L (0.7-2.1)
--- NOTE | 2022-06-20 17:23 | PM.HP.1 ---
History of Present Illness History of Present Illness Date Patient Seen: 06/20/22 Time Patient Seen: 17:23 Chief complaint: Fever, no urination, hx of bladder infections Narrative: 66-year-old male who presents to the emergency department with complaints of a fever patient routinely sees Dr. Goldstein. He was admitted the hospital back in January. His diagnosed with sepsis and pyelonephritis due to urinary tract in source. Patient was the hospital for 5 days in [facility] for about 5 weeks he has now been home. He presents back to the emergency department with not feeling well. Patient states yesterday patient had a temperature of a 101?. Headache weight lasted throughout the day and the evening last night he could not get warm. He was similar to his previous infection. Patient started this morning with again temperatures and decided to come to the emergency room as he does not feel like he was getting any better and did not want wait too long like last time. He has also felt weak. He has not had shortness of breath he has not had any chest pain has not had any dizziness or lightheadedness. He says he has been eating well. Patient also had a significant difficulty with urinary obstruction he said on his toilet for few hours could not pee feel like his bladder was going to burst and then eventually he was able to go. He was able to pee all day today. He has also had a couple of accidents. CT scan was done which showed no signs of acute urinary retention or pyelonephritis. Patient History Medical History Anemia of chronic disease Chronic venous insufficiency (04/10/16) Eczema (~1996) Frequent UTI (~2017) 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) History of kidney stones History of prostate cancer (~2016) Lower urinary tract symptoms Mixed hyperlipidemia Morbid obesity (08/16/15) Obstructive sleep apnea of adult (~2013) Pancreatitis (~1995) Phimosis Primary insomnia (08/16/15) Recurrent sinusitis (~2007) Restless leg syndrome (~2013) Restrictive lung disease (08/16/15) Tinnitus (~1972) Surgical History Anesthesia History of common bile duct surgery (~1997) Status post knee surgery (~1993) Family & Social History Family History Brother Prostate cancer Liver cancer Father Parkinson disease Grandfather Hepatitis Grandfather History of heart disease Grandmother Cancer Social History: household members family Safety & Behavioral: Feels Safe in Current Yes Environment Been Physically Hurt or No Threatened By a Person Tobacco & Substance use: Smoking Status Never smoker alcohol intake frequency a few times a week Substance Use Type does not use Meds Home Medications and Allergies Home Medications Medication Instructions Recorded Confirmed Type Disabled Parking #1 ea 06/26/20 04/25/22 Rx doxazosin 8 mg tablet 8 mg PO BEDTIME 06/26/20 04/25/22 History oxybutynin chloride 5 mg 5 mg PO BEDTIME 06/26/20 04/25/22 History tablet,extended release 24 hr ropinirole 2 mg tablet 2 mg PO BEDTIME 06/26/20 04/25/22 History trazodone 50 mg tablet 50 mg PO DAILY 06/26/20 04/25/22 History food supplemt, lactose-reduced 1 ea PO QID #28,440 mL 02/27/22 04/25/22 Rx (Ensure Original oral liquid) sulfamethoxazole 800 1 tab PO BID #14 tabs 03/14/22 04/25/22 Rx mg-trimethoprim 160 mg tablet nitrofurantoin macrocrystal 100 mg 100 mg PO DAILY #30 caps 03/18/22 04/25/22 Rx capsule furosemide 20 mg tablet 20 mg PO BID #180 tabs 05/14/22 Rx potassium chloride 10 mEq 10 meq PO DAILY #90 tabs 05/14/22 Rx tablet,extended release Allergies Allergy/AdvReac Type Severity Reaction Status Date / Time No Known Drug Allergies Allergy Verified 04/25/22 14:53 Exam Vital Signs (past 8 hours): - 06/20/22 13:09 06/20/22 13:33 06/20/22 13:52 Temperature 100.7 F H Pulse Rate 126 H 125 H 123 H Respiratory Rate 20 26 H Blood Pressure 134/63 Pulse Oximetry 94 93 93 Oxygen Delivery Method Room Air Room Air 06/20/22 13:52 06/20/22 14:00 06/20/22 14:00 Temperature Pulse Rate 121 H Respiratory Rate Blood Pressure 136/63 138/65 Pulse Oximetry 92 Oxygen Delivery Method 06/20/22 14:30 06/20/22 14:30 06/20/22 14:44 Temperature Pulse Rate 120 H 123 H Respiratory Rate 25 H 24 Blood Pressure 142/65 H Pulse Oximetry 94 94 Oxygen Delivery Method 06/20/22 14:44 06/20/22 15:00 Temperature Pulse Rate 109 H Respiratory Rate 24 Blood Pressure 154/71 H Pulse Oximetry 93 Oxygen Delivery Method Oxygen Delivery Method Room Air Narrative Exam Narrative: Gen.: Alert no apparent distress obese male HEENT: Pupils equal round and reactive or mucosa is moist Cardio: Heart sounds are distant S1 S Respiratory: Normal respiratory effort Abdomen: Obese and soft Extremities: Lower extremities edema with venous changes Objective Labs Result Diagrams: 06/20/22 13:20 06/20/22 13:20 Labs: Laboratory Results - last 24 hr 06/20/22 06/20/22 06/20/22 13:20 13:20 13:20 WBC 7.2 RBC 4.02 L Hgb 12.0 L Hct 36.4 L MCV 90.5 MCH 29.8 MCHC 32.9 RDW 17.4 H Plt Count 88 L Neut % (Auto) 85.7 H Lymph % (Auto) 6.3 L [place] % (Auto) 7.5 Eos % (Auto) 0.2 L Baso % (Auto) 0.3 Neut # (Auto) 6200 Lymph # (Auto) 500 L [place] # (Auto) 500 Eos # (Auto) 0 Baso # (Auto) 0 Sodium 135 L Potassium 4.0 Chloride 100 Carbon Dioxide 27 BUN 8 L Creatinine 0.72 Estimated GFR > 60 BUN/Creatinine Ratio 11.1 Glucose 137 H Lactate 3.7 H Calcium 8.6 Total Bilirubin 1.4 H AST 41 ALT 39 Alkaline Phosphatase 110 Total Protein 7.7 Albumin 3.7 Globulin 4.0 Albumin/Globulin Ratio 0.9 L Lipase 42 Procalcitonin 0.18 Urine Color Urine Appearance Urine pH Ur Specific [place] Urine Protein Urine Glucose (UA) Urine Ketones Urine Occult Blood Urine Nitrate Urine Bilirubin Urine Urobilinogen Ur Leukocyte Esterase Urine RBC Urine WBC Ur Squamous Epith Cells Amorphous Sediment Urine Bacteria Urine Mucus Ur Culture Indicated? SARS-CoV-2 (PCR) 06/20/22 06/20/22 06/20/22 13:20 15:35 15:53 WBC RBC Hgb Hct MCV MCH MCHC RDW Plt Count Neut % (Auto) Lymph % (Auto) [place] % (Auto) Eos % (Auto) Baso % (Auto) Neut # (Auto) Lymph # (Auto) [place] # (Auto) Eos # (Auto) Baso # (Auto) Sodium Potassium Chloride Carbon Dioxide BUN Creatinine Estimated GFR BUN/Creatinine Ratio Glucose Lactate 2.2 H Calcium Total Bilirubin AST ALT Alkaline Phosphatase Total Protein Albumin Globulin Albumin/Globulin Ratio Lipase Procalcitonin Cancelled Urine Color Yellow Urine Appearance Turbid Urine pH 6.0 Ur Specific [place] 1.015 Urine Protein 1+ H Urine Glucose (UA) Negative Urine Ketones Negative Urine Occult Blood 3+ H Urine Nitrate Negative Urine Bilirubin Negative Urine Urobilinogen 0.2 Ur Leukocyte Esterase 3+ H Urine RBC 5-10/hpf H Urine WBC >100/hpf H Ur Squamous Epith Cells 1-5 /hpf Amorphous Sediment 1+ Urine Bacteria Many (>30) H Urine Mucus 2+ H Ur Culture Indicated? Specimen cultured SARS-CoV-2 (PCR) 06/20/22 16:11 WBC RBC Hgb Hct MCV MCH MCHC RDW Plt Count Neut % (Auto) Lymph % (Auto) [place] % (Auto) Eos % (Auto) Baso % (Auto) Neut # (Auto) Lymph # (Auto) [place] # (Auto) Eos # (Auto) Baso # (Auto) Sodium Potassium Chloride Carbon Dioxide BUN Creatinine Estimated GFR BUN/Creatinine Ratio Glucose Lactate Calcium Total Bilirubin AST ALT Alkaline Phosphatase Total Protein Albumin Globulin Albumin/Globulin Ratio Lipase Procalcitonin Urine Color Urine Appearance Urine pH Ur Specific [place] Urine Protein Urine Glucose (UA) Urine Ketones Urine Occult Blood Urine Nitrate Urine Bilirubin Urine Urobilinogen Ur Leukocyte Esterase Urine RBC Urine WBC Ur Squamous Epith Cells Amorphous Sediment Urine Bacteria Urine Mucus Ur Culture Indicated? SARS-CoV-2 (PCR) Negative Assessment & Plan Assessment and plan (1) Urinary tract infection: Status: Acute Plan Urinary tract infection patient with urinary tract infection with fever elevated white blood cell count and tachycardia. Patient was treated for sepsis in the emergency department with IV fluids IV antibiotics and lactate. Patient does not have an elevated white blood cell count initially presentation with fever but that is now resolved patient says he feels a little bit better. Will commit the patient to the hospital. He will have serial CBCs and repeat lactate. He will be continued on ceftriaxone. Will follow patient's urine culture. CT scan shows no acute signs of infection. Will monitor closely for worsening of his infection. Urinary retention. Patient has a history of prostate cancers with significant issues post treatment. He is on doxazosin and oxybutynin we will continue this. Patient had what said like urinary obstruction but no problems now will monitor his urinary output during this hospital stay. Restless leg syndrome. We will continue with patent since current medication for restless leg syndrome. Restrictive lung disease thought mainly due to his obesity. Not requiring any oxygen or treatment. Code status. Patient states his code status is a no code. VTE prophylaxis patient with Lovenox Patient will be admitted to the hospital as an inpatient due to his elevated lactate fever and signs of systemic infection Time Spent With Patient Critical Care time: I spent a total of [] minutes of critical care time on this patient's care today; this time is exclusive of procedural time.
[2022-06-20] MEDS: SODIUM CHLORIDE 0.45% 1,000 ML 100 ML IV (18:12)
[2022-06-20] MEDS: DOXAZOSIN 4 MG TABLET 8 MG PO (21:33)
[2022-06-20] MEDS: ROPINIROLE 1 MG TABLET 2 MG PO (21:33)
[2022-06-20] MEDS: OXYBUTYNIN 5 MG ER TAB PO (21:33)
[2022-06-20] MEDS: TRAZODONE 50 MG TABLET PO (21:34)
[2022-06-21] MEDS: ACETAMINOPHEN 325 MG TABLET 650 MG PO ×2 (02:36→12:12)
[2022-06-21 02:42] VITALS: BP 144/67; PULSE 95; RESP 20; TEMP 36.4; O2SAT 94
[2022-06-21] MEDS: SODIUM CHLORIDE 0.45% 1,000 ML 100 ML IV (04:37)
[2022-06-21 07:20] LABS: Add Manual Diff / Slide Review SLIDE REVIEW; Basophils Absolute Auto 0 /uL (0-100); Basophils Percent Auto 0.6 % (0-2); Eosinophils Absolute Auto 100 /uL (0-450); Eosinophils Percent Auto 2.4 % (2-4); Hematocrit 34.1 % (41-53); Hemoglobin 11.2 g/dL (13.5-17.5); Lymphocytes Absolute Auto 500 /uL (1100-4500); Lymphocytes Percent Auto 14.1 % (25-40); Mean Corpuscular HGB Conc 32.8 % (30-36); Mean Corpuscular Volume 91.3 fL (80-100); Monocytes Absolute Auto 500 /uL (0-900); Monocytes Percent Auto 14.5 % (3-14); Neutrophils Absolute Auto 2500 /uL (1500-7000); Neutrophils Percent Auto 68.4 % (50-75); Platelet Count 48 X10^3/uL (150-400); Red Blood Cell Count 3.73 X10^6/uL (4.5-5.9); Red Cell Distribution Width 17.7 % (11.6-14.8); White Blood Cell Count 3.6 X10^3/uL (4.5-11.0)
[2022-06-21 07:26] LABS: BUN Creatinine Ratio 14.1 (6-22); Blood Urea Nitrogen 10 mg/dL (9-20); Calcium 8.3 mg/dL (8.4-10.2); Carbon Dioxide 29 mmol/L (22-32); Chloride 101 mmol/L (98-107); Estimated Glomerular Filt Rate > 60 mL/min (>60); Glucose 114 mg/dL (80-110); HEMOLYSIS < 15 (0-50); Potassium 3.8 mmol/L (3.4-5.1); Sodium 137 mmol/L (137-145)
[2022-06-21 07:41] LABS: Platelet Estimate Decreased on smear
[2022-06-21] MEDS: ENOXAPARIN 40 MG/0.4 ML SYRINGE SUBCUT (08:46)
--- NOTE | 2022-06-21 09:09 | CM.DANOTE ---
DCP: Case received, EMR reviewed and met with patient. Introduced self and role. Was able to obtain information regarding patient's baseline activity level at home prior to hospitalization. DCP assessment completed with information currently available. Patient came to the hospital via private vehicle secondary to having a fever, difficulty voiding. Patient had a temp of 101. Patient holds current diagnosis of UTI, he is also being monitored for urinary retention. Met with patient in his room. He is alert and oriented, pleasant. He resides here in [place]. His uncle lives on the other side of the house, basically the garage, and according to patient, they have minimal contact. He uses a cane at his baseline, does still drive. Last January he went to [facility] for rehab. His daughter i Discharge Planning/Care Management CM Discharge Assessment Start: 06/21/22 09:07 Freq: Status: Active Protocol: Document 06/21/22 09:07 (Rec: 06/21/22 09:09 [id number]) Discharge Planning Assessment Assigned Batch Still Operator Minnie Acuna RN/Furnace Hand Advance Directives? No Advance Directives on File No History Provided By Patient,Medical Record Prior Living Arrangements House Household Members family Type of transporation used prior to Drives own vehicle admit Independent with ADL's Yes Is patient alert and oriented? Yes Caregiver for Another No Barriers to Discharge No Discharge Plan Home Transportation Arrangement Pt states ANITRA Allen or a local friend can transport him home at d/c Referrals Initiated None needed Whiteboard Updated in Patient Room with Yes name and ext. # of Batch Still Operator Review Status In Process Next Review Type Continued Stay Review
--- NOTE | 2022-06-21 09:15 | CM.DANOTE ---
Addendum entered by Minnie Acuna R.N. 06/21/22 13:23: Dr. Carlson came by the office with updates. Indicated, not sure what he will need at discharge, most likely home health. Let him know that this patient can order nursing, P.T, and O.T. for mobility may also be reasonable. Have signed face to face. At this time, patient does not have catheter, but is being monitored for urinary output as well as infection. Original Note: DCP: Case received, EMR reviewed and met with patient. Introduced self and role. Was able to obtain information regarding patient's baseline activity level prior to hospitalization. DCP assessment completed with information currently available. Patient is a 66 year old male who admitted yesterday afternoon to the care of the hospitalist team. PCP: Dr. Goldstein. Payer: confirmed: [facility]. Patient came to the hospital via private vehicle secondary to having a fever, which was 101, some trouble urinating. Patient was diagnosed with UTI. He is currently on IV antibiotics. Met with patient in his room. He is alert and oriented, was sitting up in his chair. He resides here in [place], his uncle lives in his garage, stated that they have minimal contact. He uses a cane at his baseline, and drives. He was recently at [facility], around January, for rehab, post hospital visit. His primary contact and POA is his [id number], Tiffany Akers. P: DCP to continue to follow. Patient will continue with his IV antibiotics while here in the hospital, and will be monitored for urinary retention. Plan is home when stable. Minnie Acuna RN/Child Care Sitter Discharge Planning/Care Management CM Discharge Assessment Start: 06/21/22 09:07 Freq: Status: Active Protocol: Document 06/21/22 09:07 (Rec: 06/21/22 09:09 [id number]) Discharge Planning Assessment Assigned Tobacco Stripper Minnie Acuna RN/Child Care Sitter Advance Directives? No Advance Directives on File No History Provided By Patient,Medical Record Prior Living Arrangements House Household Members family Type of transporation used prior to Drives own vehicle admit Independent with ADL's Yes Is patient alert and oriented? Yes Caregiver for Another No Barriers to Discharge No Discharge Plan Home Transportation Arrangement Pt states ANITRA Allen or a local friend can transport him home at d/c Referrals Initiated None needed Whiteboard Updated in Patient Room with Yes name and ext. # of Tobacco Stripper Review Status In Process Next Review Type Continued Stay Review
--- NOTE | 2022-06-21 09:58 | P.PN_ITS ---
Subjective Subjective Date Patient Seen: 06/21/22 Time Patient Seen: 09:58 Interval history: Uneventful night feeling much better todoay able to urinate again just dribbling not much stream but getting throughput appetite returning generally emerging from sepsis clinically Exam Vital Signs (past 8 hours): - 06/21/22 02:42 06/21/22 07:00 Temperature 97.6 F Pulse Rate 95 H Respiratory Rate 20 Blood Pressure 144/67 H Pulse Oximetry 94 Oxygen Delivery Method Room Air Oxygen Delivery Method Room Air Narrative Exam Narrative: what is an alert obese male sitting up in chair watching Jeopardy!? Const General: cooperative, comfortable and well developed Nutritional Appearance: obese Eyes General: appearance normal, both eyes and all related structures Resp Auscultation: clear to auscultation bilaterally Cardio Rate: tachycardic Rhythm: regular rhythm GI Other: soft normal bowel sounds nontender Extrem Other: 2+ pitting edema of legs with some mild stasis dermatitis on shins Psych Appearance: grossly normal Objective Labs Result Diagrams: 06/21/22 06:58 06/21/22 06:58 Labs: Laboratory Results - last 24 hr 06/20/22 06/20/22 06/20/22 13:20 13:20 13:20 WBC 7.2 RBC 4.02 L Hgb 12.0 L Hct 36.4 L MCV 90.5 MCH 29.8 MCHC 32.9 RDW 17.4 H Plt Count 88 L Neut % (Auto) 85.7 H Lymph % (Auto) 6.3 L [place] % (Auto) 7.5 Eos % (Auto) 0.2 L Baso % (Auto) 0.3 Neut # (Auto) 6200 Lymph # (Auto) 500 L [place] # (Auto) 500 Eos # (Auto) 0 Baso # (Auto) 0 Platelet Estimate RBC Morphology Sodium 135 L Potassium 4.0 Chloride 100 Carbon Dioxide 27 BUN 8 L Creatinine 0.72 Estimated GFR > 60 BUN/Creatinine Ratio 11.1 Glucose 137 H Lactate 3.7 H Calcium 8.6 Total Bilirubin 1.4 H AST 41 ALT 39 Alkaline Phosphatase 110 Total Protein 7.7 Albumin 3.7 Globulin 4.0 Albumin/Globulin Ratio 0.9 L Lipase 42 Procalcitonin 0.18 Urine Color Urine Appearance Urine pH Ur Specific [place] Urine Protein Urine Glucose (UA) Urine Ketones Urine Occult Blood Urine Nitrate Urine Bilirubin Urine Urobilinogen Ur Leukocyte Esterase Urine RBC Urine WBC Ur Squamous Epith Cells Amorphous Sediment Urine Bacteria Urine Mucus Ur Culture Indicated? SARS-CoV-2 (PCR) 06/20/22 06/20/22 06/20/22 13:20 15:35 15:53 WBC RBC Hgb Hct MCV MCH MCHC RDW Plt Count Neut % (Auto) Lymph % (Auto) [place] % (Auto) Eos % (Auto) Baso % (Auto) Neut # (Auto) Lymph # (Auto) [place] # (Auto) Eos # (Auto) Baso # (Auto) Platelet Estimate RBC Morphology Sodium Potassium Chloride Carbon Dioxide BUN Creatinine Estimated GFR BUN/Creatinine Ratio Glucose Lactate 2.2 H Calcium Total Bilirubin AST ALT Alkaline Phosphatase Total Protein Albumin Globulin Albumin/Globulin Ratio Lipase Procalcitonin Cancelled Urine Color Yellow Urine Appearance Turbid Urine pH 6.0 Ur Specific [place] 1.015 Urine Protein 1+ H Urine Glucose (UA) Negative Urine Ketones Negative Urine Occult Blood 3+ H Urine Nitrate Negative Urine Bilirubin Negative Urine Urobilinogen 0.2 Ur Leukocyte Esterase 3+ H Urine RBC 5-10/hpf H Urine WBC >100/hpf H Ur Squamous Epith Cells 1-5 /hpf Amorphous Sediment 1+ Urine Bacteria Many (>30) H Urine Mucus 2+ H Ur Culture Indicated? Specimen cultured SARS-CoV-2 (PCR) 06/20/22 06/21/22 06/21/22 16:11 06:58 06:58 WBC 3.6 L RBC 3.73 L Hgb 11.2 L Hct 34.1 L MCV 91.3 MCH 30.0 MCHC 32.8 RDW 17.7 H Plt Count 48 L Neut % (Auto) 68.4 Lymph % (Auto) 14.1 L [place] % (Auto) 14.5 H Eos % (Auto) 2.4 Baso % (Auto) 0.6 Neut # (Auto) 2500 Lymph # (Auto) 500 L [place] # (Auto) 500 Eos # (Auto) 100 Baso # (Auto) 0 Platelet Estimate Decreased on smear RBC Morphology See below Sodium 137 Potassium 3.8 Chloride 101 Carbon Dioxide 29 BUN 10 Creatinine 0.71 Estimated GFR > 60 BUN/Creatinine Ratio 14.1 Glucose 114 H Lactate Calcium 8.3 L Total Bilirubin AST ALT Alkaline Phosphatase Total Protein Albumin Globulin Albumin/Globulin Ratio Lipase Procalcitonin Urine Color Urine Appearance Urine pH Ur Specific [place] Urine Protein Urine Glucose (UA) Urine Ketones Urine Occult Blood Urine Nitrate Urine Bilirubin Urine Urobilinogen Ur Leukocyte Esterase Urine RBC Urine WBC Ur Squamous Epith Cells Amorphous Sediment Urine Bacteria Urine Mucus Ur Culture Indicated? 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) History of kidney stones History of prostate cancer (~2016) Lower urinary tract symptoms Mixed hyperlipidemia Morbid obesity (08/16/15) Obstructive sleep apnea of adult (~2013) Pancreatitis (~1995) Phimosis Primary insomnia (08/16/15) Recurrent sinusitis (~2007) Restless leg syndrome (~2013) Restrictive lung disease (08/16/15) Tinnitus (~1972) Surgical History Anesthesia History of common bile duct surgery (~1997) Status post knee surgery (~1993) Family History Brother Prostate cancer Liver cancer Father Parkinson disease Grandfather Hepatitis Grandfather History of heart disease Grandmother Cancer Social History household members: family Smoking Status: Never smoker alcohol intake: current Assessment & Plan Assessment & Plan narrative: #Urinary tract infection WBCs and vitals improved today Given this is a bounceback I am wary and inclined for conclusive IV treatment especially as he is responding well to rocephin CT scan shows no acute signs of infection.? Will monitor closely for worsening of his infection. continue fluids and abx #Urinary retention.? Patient has a history of prostate cancers with significant issues post treatment.? He is on doxazosin and oxybutynin we will continue this.? symptoms are improving with treatment of UTI. pt reports he has some gravel in his bladder which may or may not be obstructive?- monitor #pedal edema continue home diuretic #Restless leg syndrome stable continue home meds #Restrictive lung disease thought mainly due to his obesity/Pickwickian syndrome Not requiring any oxygen or treatment, CPAP to sleep as needed dispo: continue inpatient for fluids and antibiotics Code status: DNR VTE prophylaxis: Lovenox Time Spent With Patient Critical Care time: I spent a total of [] minutes of critical care time on this patient's care today; this time is exclusive of procedural time. Quality VTE Deep Vein Thrombosis/Pulmonary Embolism Present on Admission: No
[2022-06-21 10:00] VITALS: BP 144/74; PULSE 85; RESP 18; TEMP 36; O2SAT 92
[2022-06-21] MEDS: FUROSEMIDE 40 MG TABLET PO (11:16)
[2022-06-21] MEDS: cefTRIAXone 2,000 MG in SODIUM CHLORIDE 0.9% 100 ML 200 MG IV (12:18)
[2022-06-21] MEDS: SODIUM CHLORIDE 0.45% 1,000 ML 48 ML IV (16:30)
[2022-06-21 17:52] VITALS: BP 147/76; PULSE 108; RESP 18; TEMP 36.3; O2SAT 93
[2022-06-21 20:36] VITALS: BP 142/91; PULSE 104; RESP 19; TEMP 35.9; O2SAT 97
[2022-06-21 22:09] VITALS: BP 142/91; PULSE 104
[2022-06-21] MEDS: DOXAZOSIN 4 MG TABLET 8 MG PO (22:09)
[2022-06-21] MEDS: TRAZODONE 50 MG TABLET PO (22:09)
[2022-06-21] MEDS: OXYBUTYNIN 5 MG ER TAB PO (22:10)
[2022-06-21] MEDS: ROPINIROLE 1 MG TABLET 2 MG PO (22:10)
[2022-06-21 23:09] VITALS: BP 156/88; PULSE 116; RESP 20; TEMP 36.3; O2SAT 93
[2022-06-22 07:42] LABS: Add Manual Diff / Slide Review NO; Basophils Absolute Auto 0 /uL (0-100); Basophils Percent Auto 0.8 % (0-2); Eosinophils Absolute Auto 100 /uL (0-450); Eosinophils Percent Auto 3.7 % (2-4); Hematocrit 33.4 % (41-53); Hemoglobin 10.8 g/dL (13.5-17.5); Lymphocytes Absolute Auto 800 /uL (1100-4500); Lymphocytes Percent Auto 20.8 % (25-40); Mean Corpuscular HGB Conc 32.5 % (30-36); Mean Corpuscular Hemoglobin 29.7 PG (26-34); Mean Corpuscular Volume 91.7 fL (80-100); Monocytes Absolute Auto 500 /uL (0-900); Monocytes Percent Auto 13.3 % (3-14); Neutrophils Absolute Auto 2300 /uL (1500-7000); Neutrophils Percent Auto 61.4 % (50-75); Platelet Count 94 X10^3/uL (150-400); Red Blood Cell Count 3.65 X10^6/uL (4.5-5.9); Red Cell Distribution Width 17.6 % (11.6-14.8); White Blood Cell Count 3.8 X10^3/uL (4.5-11.0)
[2022-06-22 07:52] LABS: Alanine Aminotransferase 48 IU/L (<50); Albumin 3.4 g/dL (3.5-5.0); Albumin Globulin Ratio 0.9 (1.0-2.8); Alkaline Phosphatase 95 U/L (38-126); Aspartate Aminotransferase 46 IU/L (17-59); BUN Creatinine Ratio 16.9 (6-22); Bilirubin Total 0.7 mg/dL (0.2-1.3); Blood Urea Nitrogen 13 mg/dL (9-20); Calcium 8.3 mg/dL (8.4-10.2); Carbon Dioxide 30 mmol/L (22-32); Chloride 100 mmol/L (98-107); Estimated Glomerular Filt Rate > 60 mL/min (>60); Globulin 3.8 g/dL (1.7-4.1); Glucose 137 mg/dL (80-110); HEMOLYSIS < 15 (0-50); Potassium 3.9 mmol/L (3.4-5.1); Sodium 137 mmol/L (137-145); Total Protein 7.2 g/dL (6.3-8.2)
[2022-06-22 08:00] VITALS: BP 168/89; PULSE 88; RESP 17; TEMP 36.3; O2SAT 91
[2022-06-22] MEDS: FUROSEMIDE 40 MG TABLET PO (08:51)
--- NOTE | 2022-06-22 09:38 | P.DS_ITS ---
History of Present Illness History of Present Illness Date Patient Seen: 06/22/22 Time Patient Seen: 09:38 Chief complaint: Fever, no urination, hx of bladder infections Narrative: CC: I feel better Pt continues to improve today reports he is having much better UOP and is feeling ok ambulating around the room I actually feel a bit better than I did before this all started Plan is to get 1pm dose of rocephin then home with HH assiduous hydration advised Discharge Providers Provider Date of admission: 06/20/22 17:01 Discharge Date: 06/22/22 Primary care physician: Vince Goldstein MD Discharge provider: Steven Carlson MD Summary Hospital Course Discharge Diagnosis: #Urinary tract infection #hx of prostate cancer #bladder stones #Urinary retention.? #pedal edema #Restless leg syndrome #Restrictive lung disease thought mainly due to his obesity/Pickwickian syndrome #severe obesity BMI >40 Hospital Course: Mr. Akers improved well on IVF and IV abx with rocephin. by DoD he was feeling back to normal and felt ready to go home with oral antibiotics and home health. he will f/u with PCP next week. Status at Discharge Cognitive/behavioral status at discharge: at baseline, oriented Functional status at discharge: independent ambulation Overall status at discharge: patient is back to baseline Exam Vital Signs (past 8 hours): - 06/22/22 08:00 Temperature 97.3 F L Pulse Rate 88 Respiratory Rate 17 Blood Pressure 168/89 H Pulse Oximetry 91 Oxygen Flow Rate 0 Oxygen Delivery Method Room Air Oxygen Flow Rate 0 Narrative Exam Narrative: alert sitting up in chair Const Nutritional Appearance: obese HENMT Head: normal to inspection, normocephalic and atraumatic Eyes General: appearance normal, both eyes and all related structures Resp Effort & Inspection: able to speak in complete sentences Auscultation: clear to auscultation bilaterally Cardio Rate: regular rate Rhythm: regular rhythm Heart Sounds: S1 normal and S2 normal GI Other: soft nontender normal bowel sounds no CVA ttp Neuro General: patient alert, patient awake, patient oriented x3, moves all extremities and CN's II-XI intact bilaterally Extrem General: full ROM and pedal edema Other: stasis dermatitis of chins bilaterally no weeping Psych Appearance: grossly normal Mental Status: mental status grossly normal Speech and Movement: speech and movement normal Objective Labs Result Diagrams: 06/22/22 06:40 06/22/22 06:40 Labs: Laboratory Results - last 24 hr 06/22/22 06/22/22 06:40 06:40 WBC 3.8 L RBC 3.65 L Hgb 10.8 L Hct 33.4 L MCV 91.7 MCH 29.7 MCHC 32.5 RDW 17.6 H Plt Count 94 L Neut % (Auto) 61.4 Lymph % (Auto) 20.8 L [place] % (Auto) 13.3 Eos % (Auto) 3.7 Baso % (Auto) 0.8 Neut # (Auto) 2300 Lymph # (Auto) 800 L [place] # (Auto) 500 Eos # (Auto) 100 Baso # (Auto) 0 Sodium 137 Potassium 3.9 Chloride 100 Carbon Dioxide 30 BUN 13 Creatinine 0.77 Estimated GFR > 60 BUN/Creatinine Ratio 16.9 Glucose 137 H Calcium 8.3 L Total Bilirubin 0.7 AST 46 ALT 48 Alkaline Phosphatase 95 Total Protein 7.2 Albumin 3.4 L Globulin 3.8 Albumin/Globulin Ratio 0.9 L [facility] Medical History Anemia of chronic disease Chronic venous insufficiency (04/10/16) Eczema (~1996) Frequent UTI (~2017) 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) History of kidney stones History of prostate cancer (~2016) Lower urinary tract symptoms Mixed hyperlipidemia Morbid obesity (08/16/15) Obstructive sleep apnea of adult (~2013) Pancreatitis (~1995) Phimosis Primary insomnia (08/16/15) Recurrent sinusitis (~2007) Restless leg syndrome (~2013) Restrictive lung disease (08/16/15) Tinnitus (~1972) Surgical History Anesthesia History of common bile duct surgery (~1997) Status post knee surgery (~1993) Family History Brother Prostate cancer Liver cancer Father Parkinson disease Grandfather Hepatitis Grandfather History of heart disease Grandmother Cancer Social History household members: family Smoking Status: Never smoker alcohol intake: current Discharge Assessment & Plan Assessment and Plan Assessment: #Urinary tract infection continue to improve now s/p 3 days of IV rocephin continue heavy hydration and levaquin oral on d/c #hx of prostate cancer this has led to substantial anatomic changes combined with obesity which I think are contributing to these repeat severe UTIs per patient I have an innie he has been unable to be scoped or cathed for some time even by urology. Discussed prophylactic antibiotics vs probiotics such as Uqora which might be a good idea f/u as outpt #bladder stones small - noted on CT do not seem to be obstructive in size but could be an issue when combined with UTI/inflammation monitor #Urinary retention.? Patient has a history of prostate cancers with significant issues post treatment.? He is on doxazosin and oxybutynin we will continue this.? symptoms are improving with treatment of UTI, hydration, and resumption of loop diuretics #pedal edema continue home diuretic #Restless leg syndrome stable continue home meds #Restrictive lung disease thought mainly due to his obesity/Pickwickian syndrome Not requiring any oxygen or treatment, CPAP to sleep as needed #severe obesity BMI >40 discussed options includcatalina morris he agrees weight loss would probably help with his issues will work on it dispo: dc home with Code status: DNR VTE prophylaxis: Lovenox Discharge Plan Discharge Plan Patient Disposition: Home Health Service Discharge orders & Medications Prescriptions: New levofloxacin 500 mg tablet 500 mg PO DAILY Qty: 30 0RF Continued potassium chloride 10 mEq tablet extended release 10 meq PO DAILY Qty: 90 0RF furosemide 20 mg tablet 20 mg PO BID Qty: 180 0RF ropinirole 2 mg tablet 2 mg PO BEDTIME Rx Instructions: 2-3 hrs before bedtime. doxazosin 8 mg tablet 8 mg PO BEDTIME Rx Instructions: 2-3 hrs before bed. oxybutynin chloride 5 mg tablet extended release 24hr 5 mg PO BEDTIME Rx Instructions: 2-3 hrs before bed trazodone 50 mg tablet 50 mg PO DAILY Rx Instructions: 2-3 hrs before bed (DME) Disabled Parking Qty: 1 0RF Rx Instructions: Patient qualifies for disabled parking as per the attached form. Ensure Original Liquid 1 ea PO QID Qty: 62751 12RF nitrofurantoin macrocrystal 100 mg capsule 100 mg PO BID Label Comments: take 1 tablet by mouth daily *MUST TAKE WITH FOOD. BEGIN TAKING W... (REFER TO PRESCRIPTION NOTES). Discontinued sulfamethoxazole-trimethoprim 800-160 mg tablet 1 tab PO BID Qty: 14 0RF Follow up/Referrals: Vince Goldstein MD [Primary Care Provider] - Discharge Data Primary Care Provider: Vince Goldstein Quality VTE Deep Vein Thrombosis/Pulmonary Embolism Present on Admission: No
[2022-06-22] MEDS: cefTRIAXone 2,000 MG in SODIUM CHLORIDE 0.9% 100 ML 200 MG IV (12:49)
--- NOTE | 2022-06-22 12:50 | CM.DPC ---
DCP Discharge Home with HH Per MD, pt is medically stable to d/c home today after final IV-Abx dose and no identified barriers to discharge. Per RN, pt to have final dose around 1230 and then plan of home and no concerns at this time. SW met bedside with pt and explained role and he is dressed and awaiting final abx dose and confirms he remains agreeable with HH and preference is [facility] as he used them before and felt their services were good. Pt confirms that his sister misty plans to provide transport and pt ambulated the hallways today and felt steady with his home cane and remains somewhat SOB but states he only has 57% use of his lungs at baseline and felt better than I thought I would. Pt's only concern is [facility] in [place] filling his oral abx meds in a timely manner as they have been short staffed. 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 SW called [facility] and confirmed they have openings within 48 hrs for PT start of care and SW faxed referral along with signed F2F, HH orders, and d/c summary. Plan: Patient to d/c home via [facility] P[facility] and new [facility] referral made. No further SW needs at this time. Lisa Graf MSW
--- NOTE | 2022-06-22 13:18 | PC.NURSE ---
Pt is AxOx4, independent and cooperative. VSS, pt denies pain and on RA. Pt is eating well and drinking well. Pt has now his last IV ABO running and after this pt is ready to d/c home. D/C instruction given to pt and pt verbalzied understanding. No other changes.
== END 2022-06-22 13:39 | disposition home health service (06) | DRG 872 ==
LOC: ED 16:13 → AC 17:02
PROVIDERS: Admitting Provider Family Medicine; Emergency Provider Emergency Medicine; PCP Internal Medicine; Referring Provider Emergency Medicine; Visit Provider Family Medicine
DX: A41.9 Sepsis, unspecified organism (principal); N39.0 Urinary tract infection, site not specified; Z68.44 Body mass index [BMI] 60.0-69.9, adult; E66.2 Morbid (severe) obesity with alveolar hypoventilation; R33.9 Retention of urine, unspecified; J98.4 Other disorders of lung; G25.81 Restless legs syndrome; R60.9 Edema, unspecified; N21.0 Calculus in bladder; Z20.822 Contact with and (suspected) exposure to COVID-19; Z66 Do not resuscitate; Z85.46 Personal history of malignant neoplasm of prostate; R00.0 Tachycardia, unspecified; I45.10 Unspecified right bundle-branch block
CPT/HCPCS: 36415; 51798; 71045; 74177; 80048; 80053; 81001; 83605; 83690; 84145; 85025; 87040; 87077; 87086; 87635; 93005; 93010; 96365; 96375; 99223; 99284; C9803; J0696; J1650; J2270; J2405; J7050

== ENCOUNTER → 2022-07-03 10:11 | Outpatient (CLI) | payer MEDICARE, MEDICAID, SELFPAY ==
[2022-06-20 19:07] VITALS: BMI 60.5
[2022-07-03 11:52] LABS: Hematocrit 36.5 % (41-53); Hemoglobin 12.1 g/dL (13.5-17.5); Mean Corpuscular HGB Conc 33.1 % (30-36); Mean Corpuscular Hemoglobin 30.5 PG (26-34); Mean Corpuscular Volume 92.1 fL (80-100); Platelet Count 136 X10^3/uL (150-400); Red Blood Cell Count 3.96 X10^6/uL (4.5-5.9); Red Cell Distribution Width 18.3 % (11.6-14.8); White Blood Cell Count 5.3 X10^3/uL (4.5-11.0)
[2022-07-03 11:57] LABS: Hemoglobin A1C% w Est Avg Glu 5.4 % (4.0-6.0)
[2022-07-03 12:26] LABS: HEMOLYSIS < 15 (0-50); Iron 66 ug/dL (49-181)
[2022-07-03 12:27] LABS: BUN Creatinine Ratio 13.6 (6-22); Blood Urea Nitrogen 9 mg/dL (9-20); Calcium 9.2 mg/dL (8.4-10.2); Carbon Dioxide 29 mmol/L (22-32); Chloride 97 mmol/L (98-107); Estimated Glomerular Filt Rate > 60 mL/min (>60); Glucose 109 mg/dL (80-110); HEMOLYSIS < 15 (0-50); Lactate Dehydrogenase 492 U/L (313-618); Potassium 4.1 mmol/L (3.4-5.1); Sodium 137 mmol/L (137-145)
[2022-07-03 12:37] LABS: Percent Iron Saturation 23 % (20-50); Total Iron Binding Capacity 292 ug/dL (261-462); Transferrin 215 mg/dL (206-381)
[2022-07-03 12:39] LABS: Neutrophils Absolute Manual 3657 /uL (3000-5900); Total Cells Counted 100
[2022-07-03 12:40] LABS: Anisocytosis 1+
[2022-07-03 12:42] LABS: Platelet Estimate Adequate on smear
[2022-07-03 12:53] LABS: TSH w/ Reflex to FT4 1.82 uIU/mL (0.47-4.68)
[2022-07-03 12:58] LABS: Ferritin 137 ng/mL (18-464)
[2022-07-03 13:12] LABS: Vitamin B12 772 pg/mL (239-931)
[2022-07-07 10:08] LABS: M-Spike % Not Observed % (Not Observed); Urine Total Protein <4.0 mg/dL (Not Estab.)
[2022-07-07 15:01] LABS: Albumin 3.7 g/dL (2.9-4.4); Alpha-1-Globulin 0.3 g/dL (0.0-0.4); Alpha-2-Globulin 0.8 g/dL (0.4-1.0); Gamma Globulin 1.6 g/dL (0.4-1.8); Globulin Total 3.8 g/dL (2.2-3.9); Protein, Total 7.5 g/dL (6.0-8.5)
== END ==
PROVIDERS: PCP Internal Medicine; Referring Provider Internal Medicine; Visit Provider Internal Medicine
DX: D64.9 Anemia, unspecified (principal); R73.01 Impaired fasting glucose; E53.8 Deficiency of other specified B group vitamins; N39.0 Urinary tract infection, site not specified; Z85.46 Personal history of malignant neoplasm of prostate; R77.9 Abnormality of plasma protein, unspecified
CPT/HCPCS: 80048; 82607; 82728; 83036; 83540; 83550; 83615; 84155; 84156; 84165; 84166; 84443; 85025

== ENCOUNTER → 2022-09-20 10:37 | Outpatient (CLI) | payer MEDICARE, MEDICAID, SELFPAY ==
[2022-06-20 19:07] VITALS: BMI 60.5
[2022-09-20 11:37] LABS: HEMOLYSIS < 15 (0-50); Iron 48 ug/dL (49-181)
[2022-09-20 11:41] LABS: C-Reactive Protein Quant 1.6 mg/dL (<1.0)
[2022-09-20 11:49] LABS: Percent Iron Saturation 19 % (20-50); Total Iron Binding Capacity 251 ug/dL (261-462); Transferrin 199 mg/dL (206-381)
[2022-09-20 12:12] LABS: Ferritin 120 ng/mL (18-464)
== END ==
PROVIDERS: PCP Internal Medicine; Referring Provider Nurse Practitioner; Visit Provider Nurse Practitioner
DX: G25.81 Restless legs syndrome (principal)
CPT/HCPCS: 36415; 82728; 83540; 83550; 86140

== ENCOUNTER 2022-12-15 12:43 | Emergency (ER) | payer MEDICARE, MEDICAID, SELFPAY ==
[2022-06-20 19:07] VITALS: BMI 60.5
[2022-12-15] VITALS (13 sets, daily range): BP systolic 142–180; BP diastolic 72–82; PULSE 103–126; RESP 14–28; TEMP 36.3–37.2; O2SAT 91–96; BMI 57.7
--- NOTE | 2022-12-15 15:42 | PC.NURSE ---
Addendum entered by Brian Hooks R.N. 12/15/22 16:15: Provider aware of patient presentation. New orders given. Original Note: Pt arrives today with c/o blood in his urine that began a week ago, then subsided and know has blood in his urine since Thursday with multiple clots present. Pt also having difficulty at times urinating. Pt denies blood thinners. Placed on continuous cardiac monitoring. Bladder scan for post-residual void by electrical tech. Pt has multiple scattered abrasions to his lower legs, two scabbed over wounds on his knees, and bruising to his right upper chest. All injuries he reports he sustained from mechanical trip/slip falls from earlier this week. Pt denies hitting his head, denies c-spine tenderness, denies chest pain, but is chronically SOB due to lung folding over on itself in 2017. Lung sounds throughout all [place] are clear. 95% on RA. Encouraged to use call light. Call light within reach.
[2022-12-15 16:02] LABS: Appearance Urine UA CLOUDY; Bilirubin Urine UA 2+ (NEGATIVE); Color Urine UA BROWN; Glucose Urine UA NEGATIVE (Negative); Ketones Urine UA TRACE (NEGATIVE); Leukocyte Esterase Urine UA 3+ (NEGATIVE); Nitrite Urine UA POSITIVE (Negative); Occult Blood Urine UA 3+ (Negative); Protein Urine UA 3+ (Negative); Specific Gravity Urine UA 1.015 (1.000-1.035)
[2022-12-15 16:10] LABS: Amorphous Sediment Urine 1+; Ictotest Urine Negative (Negative); RBC Urine >100/HPF (0-5/HPF); Squamous Epithelial Cell Urine 0-1 /HPF (0-5/HPF); WBC Urine 10-30/HPF (0-5/HPF)
[2022-12-15 16:11] LABS: Bacteria Urine Many (>30); Culture Indicated Urine Specimen Cultured
[2022-12-15 16:53] LABS: Add Manual Diff / Slide Review NO; Basophils Absolute Auto 100 /uL (0-100); Basophils Percent Auto 1.2 % (0-2); Eosinophils Absolute Auto 200 /uL (0-450); Eosinophils Percent Auto 2.5 % (2-4); Hematocrit 33.9 % (41-53); Hemoglobin 11.1 g/dL (13.5-17.5); Lymphocytes Absolute Auto 900 /uL (1100-4500); Lymphocytes Percent Auto 13.6 % (25-40); Mean Corpuscular HGB Conc 32.8 % (30-36); Mean Corpuscular Hemoglobin 30.3 PG (26-34); Mean Corpuscular Volume 92.4 fL (80-100); Monocytes Absolute Auto 700 /uL (0-900); Monocytes Percent Auto 9.9 % (3-14); Neutrophils Absolute Auto 4900 /uL (1500-7000); Neutrophils Percent Auto 72.8 % (50-75); Platelet Count 178 X10^3/uL (150-400); Red Blood Cell Count 3.67 X10^6/uL (4.5-5.9); Red Cell Distribution Width 17.2 % (11.6-14.8); White Blood Cell Count 6.7 X10^3/uL (4.5-11.0)
[2022-12-15 17:07] LABS: Alanine Aminotransferase 55 IU/L (<50); Albumin Globulin Ratio 0.9 (1.0-2.8); Alkaline Phosphatase 158 U/L (38-126); Aspartate Aminotransferase 59 IU/L (17-59); BUN Creatinine Ratio 14.5 (6-22); Bilirubin Total 2.8 mg/dL (0.2-1.3); Blood Urea Nitrogen 10 mg/dL (9-20); Calcium 8.6 mg/dL (8.4-10.2); Carbon Dioxide 31 mmol/L (22-32); Chloride 95 mmol/L (98-107); Estimated Glomerular Filt Rate > 60 mL/min (>60); Globulin 4.3 g/dL (1.7-4.1); Glucose 125 mg/dL (80-110); HEMOLYSIS < 15 (0-50); Potassium 3.7 mmol/L (3.4-5.1); Sodium 134 mmol/L (137-145); Total Protein 8.3 g/dL (6.3-8.2)
--- NOTE | 2022-12-15 17:11 | DI.CT.S_ITS ---
PROCEDURE: CT CHEST ABD PEL W CON INDICATIONS: fall TECHNIQUE: After the administration of intravenous contrast, axial sections acquired from the supraclavicular neck to the pubic symphysis. Coronal and sagittal reformats were performed. For radiation dose reduction, the following was used: automated exposure control, adjustment of mA and/or kV according to patient size. COMPARISON: [facility], CR, XR CHEST 1V, 06/20/2022, 13:21. [facility], CT, CT ABDOMEN PELVIS W CON, 06/20/2022, 14:34. FINDINGS: Image quality: Excellent. CHEST: Lower Neck: No enlarged lymph nodes. Thyroid: Within normal limits. Axillae: No enlarged lymph nodes. Chest Wall: Unremarkable. Lungs and Airways: There are multiple small lung nodules bilaterally. For example, there is a 1 mm nodule in the right middle lobe (series 3, image 124). A 1 mm nodule is seen in the left upper lobe (series 3, image 84). A calcified nodule is seen in the posterior right upper lobe, compatible with an old granuloma. Lingular and left lower lobe scars and atelectasis Pleura: No pneumothorax or pleural effusions. Heart: Heart size is normal. Moderate coronary artery calcification. No pericardial effusion. Thoracic Vessels: The aorta and pulmonary arteries demonstrate normal size. Mediastinum and Jy[place]i: No enlarged lymph nodes. Esophagus: No wall thickening. Small hiatal hernia. ABDOMEN: Liver: Normal size. Moderate hepatic steatosis. Gallbladder: Unremarkable. Biliary ducts: Unremarkable. Pancreas: Unremarkable. Spleen: Enlarged measuring 15.7 cm in length. Adrenal Glands: Unremarkable. Kidneys and Ureters: There are 2 nonobstructive left renal calculi. Bilateral trace renal pelviectasis. No ureteral stones. Stomach and Bowel: Stomach, small bowel loops, and colon are normal in caliber. Diverticulosis without acute diverticulitis Peritoneum: No abnormal intraperitoneal fluid. No free air. Ventral Wall: No hernia. Abdominal Nodes: No retroperitoneal or mesenteric adenopathy by size criteria. Vessels: Aorta and inferior vena cava are normal in size. PELVIS: Pelvic Organs: Unremarkable. Bladder: Unremarkable. Fiducial markers noted within prostate Pelvic Nodes: No enlarged lymph nodes. Miscellaneous: No inguinal hernias are seen. Bones: Degenerative changes are noted. There is a sclerotic focus in L5, most likely a bone island. IMPRESSION: 1. No acute traumatic injuries in thorax, abdomen or pelvis. 2. Small lung nodules are present bilaterally. Please see enclosed follow-up recommendation. 3. Hepatic steatosis. 4. Mild splenomegaly. 5. Diverticulosis without diverticulitis. 6. Trace renal pelviectasis bilaterally. No obstructive renal stones. Nonobstructive renal calculi are seen in the left kidney. Fleischner Society criteria for SOLID lung nodule followup. Nodule size (mm)Low-risk patientHigh-risk patient?4No follow-up neededFollow-up at 12 mo; if no change, no further follow-up>4-8Sfejld-yt CT at 12 mo; if no change, no further follow-up needed.Initial follow-up CT at 6-12 mo, then 18-24 mo if no change. >6-8Initial follow-up CT at 6-12 mo, then 18-24 mo if no change. Initial follow-up CT at 3-6 mo, then 9-12 mo and 24 mo if no change. >8Follow-up CT at 3, 9, 24 mo. Or PET and/or biopsy.Same as for low-risk pts. Fleischner Society criteria for SUB-SOLID lung nodule followup. Solitary pure ground-glass nodules5 mm or lessNo followup needed. >5 mm3 mo follow-up CT to confirm persistence. Then annual CT for 3 years. Part-solid nodules3 mo follow-up CT to confirm persistence. If persistent with solid component <5 mm, annual CT for at least 3 years. If solid component is 5 mm or more, biopsy or surgical resection. Consider PET-CT for lesions > 10 mm. Multiple sub-solid nodulesPure ground glass nodules [address] at 2 and 4 years. Pure ground glass nodules >5 mm without dominant lesion. [address] to confirm persistence, then annual followup CT for at least 3 years. Dominant nodule(s) with part-solid or solid component. [address] to confirm persistence. If persistent, consider biopsy or surgical resection, vishal if lesions have >5 mm solid component. Dictated by: Hamilton Jackman M.D. on 12/15/2022 at 18:05 Approved by: Hamilton Jackman M.D. on 12/15/2022 at 18:17
--- NOTE | 2022-12-15 18:15 | ED_ITS ---
HPI - Male Genitourinary <Birgit Hubbard PA-C - Last Filed: 12/15/22 20:50> General Chief complaint: Urogenital-Male Stated complaint: bleeding in urine T-3 pain Time Seen by Provider: 12/15/22 16:17 Mode of arrival: Wheelchair History of Present Illness HPI Narrative: 67-year-old male with past medical history of venous insufficiency, prostate cancer, gout, frequent UTIs presents to the ED with 5-7 days of hematuria. Patient states that he suffered 2 mechanical falls 5 days ago, when he was not using his cane and had had a few alcoholic drinks. Patient is not on a blood thinner. Patient denies head strike, loss of consciousness. Patient denies aches and pains from the falls. Patient states that he has shortness of breath on exertion as his baseline, usually gets exacerbated when he is sick with a UTI or other illness. Patient does endorse feeling a little bit more short of breath since the fall. Patient denies fever, chills, chest pain, nausea, vomiting, abdominal pain, lightheadedness, dizziness, syncope. Patient does endorse severe dysuria, hematuria, with some clots. Related Data Home Medications Medication Instructions Recorded Confirmed doxazosin 8 mg tablet 8 mg PO BEDTIME 06/26/20 09/25/22 oxybutynin chloride 5 mg 5 mg PO BEDTIME 06/26/20 09/25/22 tablet,extended release 24 hr ropinirole 2 mg tablet 2 mg PO BEDTIME 06/26/20 09/25/22 trazodone 50 mg tablet 50 mg PO DAILY 06/26/20 09/25/22 ferrous sulfate 325 mg (65 mg 325 mg PO BID 09/25/22 09/25/22 iron) tablet Previous Rx's Medication Instructions Recorded Disabled Parking #1 ea 06/26/20 food supplemt, lactose-reduced 1 ea PO QID #28,440 mL 02/27/22 (Ensure Original oral liquid) furosemide 20 mg tablet 20 mg PO BID #180 tabs 08/08/22 potassium chloride 10 mEq 10 meq PO DAILY #90 tabs 08/08/22 tablet,extended release levofloxacin 750 mg tablet 750 mg PO DAILY 7 days #7 tabs 12/15/22 Allergies Allergy/AdvReac Type Severity Reaction Status Date / Time No Known Drug Allergies Allergy Verified 12/15/22 13:23 Review of Systems <Birgit Hubbard PA-C - Last Filed: 12/15/22 20:50> Review of Systems ROS Unobtainable: All systems reviewed & are unremarkable except as noted in HPI and below Constitutional Constitutional: Denies chills, Denies fatigue, Denies fever(s), Denies frequent falls, Denies lethargy and Denies weakness Eyes Eyes: Denies change in vision, Denies eye discharge, Denies irritation and Denies loss of vision ENT Ears, Nose, Mouth, and Throat: Denies change in voice, Denies dizziness, Denies neck pain, Denies sore throat and Denies throat swelling Cardiovascular Cardiovascular: Denies chest pain, Denies irregular heart rhythm, Denies lightheadedness, Denies palpitations, Denies dyspnea, Denies dyspnea on exertion and Denies orthopnea Respiratory Respiratory: Denies cough, Denies dyspnea, Denies dyspnea on exertion and Denies wheezing Gastrointestinal Gastrointestinal: Denies abdominal pain, Denies change in bowel habits, Denies diarrhea, Denies nausea and Denies vomiting Genitourinary Genitourinary: Reports hematuria, Reports dysuria, Reports dysuria, Denies flank pain, Denies urinary incontinence and Denies urinary urgency Musculoskeletal Musculoskeletal: Denies back pain, Denies muscle weakness, Denies neck pain, Denies numbness and Denies tingling Integumentary/Breasts Skin/Breast: Denies pruritus, Denies erythema, Denies rash and Denies wounds Neurologic Neurologic: Denies behavioral changes, Denies confusion, Denies dizziness, Denies frequent falls, Denies loss of vision, Denies numbness, Denies tingling and Denies weakness Psychiatric Psychiatric: Denies anxiety, Denies behavioral changes, Denies confusion, Denies depression, Denies homicidal ideation and Denies suicidal ideation Endocrine Endocrine: Denies fatigue, Denies flushing and Denies palpitations Hematologic/Lymphatic Hematologic/Lymphatic: Denies easy bruising Allergic/Immunologic Allergic/Immunologic: Denies urticaria, Denies throat swelling and Denies wheezing Patient History <Birgit Hubbard PA-C - Last Filed: 12/15/22 20:50> Medical History Anemia of chronic disease Chronic venous insufficiency (04/10/16) Eczema (~1996) Frequent UTI (~2017) 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 History of kidney stones History of prostate cancer (~2016) Iron deficiency Lower urinary tract symptoms Mixed hyperlipidemia Morbid obesity (08/16/15) Obstructive sleep apnea of adult (~2013) Pancreatitis (~1995) Phimosis Polyneuropathy, unspecified Primary insomnia (08/16/15) Recurrent sinusitis (~2007) Restless leg syndrome (~2013) Restrictive lung disease (08/16/15) Tinnitus (~1972) Surgical History Anesthesia History of common bile duct surgery (~1997) Status post knee surgery (~1993) Family History Brother Prostate cancer Liver cancer Father Parkinson disease Grandfather Hepatitis Grandfather History of heart disease Grandmother Cancer Social History household members: family Smoking Status: Never smoker alcohol intake: current Smoking Status: Never smoker alcohol intake frequency: a few times a week Substance Use Type: does not use Exam <Birgit Hubbard PA-C - Last Filed: 12/15/22 20:50> Narrative Exam Narrative: General:?cooperative, healthy appearing and comfortable [facility] Head:?normal to inspection Ears:?hearing grossly normal bilaterally Nose:?external nose normal Face and sinus:?normal facial exam and sinuses nontender Mouth:?oral mucosae normal Throat:?posterior oropharynx normal Eyes General:?appearance normal, both eyes and all related structures Neck Neck:?normal visual inspection and no lymphadenopathy noted Resp Effort & Inspection:?normal respiratory effort Auscultation:?clear to auscultation bilaterally Cardio Rate:?regular rate Rhythm:?regular rhythm GI Abdomen is soft, nondistended, nontender to palpation. There is no CVA tend erness. There is extensive bruising noted on the bilateral upper back, left flank, bilateral chest area. Those areas are nontender to palpation. Neuro General:?patient alert, patient awake and patient oriented x3 Initial Vital Signs Initial Vital Signs: Vital Signs Temperature 97.4 F L 12/15/22 13:18 Pulse Rate 109 H 12/15/22 13:18 Respiratory Rate 18 03/06/23 13:18 Blood Pressure 164/72 H 12/15/22 13:18 Pulse Oximetry 96 12/15/22 13:18 Oxygen Delivery Method Room Air 12/15/22 13:18 <Aretha Snell DO - Last Filed: 12/17/22 07:24> Initial Vital Signs Initial Vital Signs: Vital Signs Temperature 97.4 F L 12/15/22 13:18 Pulse Rate 109 H 12/15/22 13:18 Respiratory Rate 18 12/15/22 13:18 Blood Pressure 164/72 H 12/15/22 13:18 Pulse Oximetry 96 12/15/22 13:18 Oxygen Delivery Method Room Air 12/15/22 13:18 Course <Birgit Hubbard PA-C - Last Filed: 12/15/22 20:50> Orders Ordered: Discontinued Medications Levofloxacin (Levofloxacin 250 Mg Tablet) 750 mg PO NOW ONE Stop: 12/15/22 19:37 Last Admin: 12/15/22 19:48 Dose: 750 mg Documented By: OW Vital Signs Vital signs: Vital Signs - 8 hr 12/15/22 13:18 12/15/22 15:49 12/15/22 15:47 Temperature 97.4 F L Pulse Rate 109 H 103 H Respiratory Rate 18 28 H Blood Pressure 164/72 H 176/73 H 176/73 H Pulse Oximetry 96 94 Oxygen Delivery Method Room Air Room Air 12/15/22 15:47 12/15/22 16:00 12/15/22 16:00 Temperature Pulse Rate 103 H 106 H Respiratory Rate 20 Blood Pressure 167/79 H Pulse Oximetry 95 95 Oxygen Delivery Method 12/15/22 16:31 12/15/22 16:32 12/15/22 16:32 Temperature Pulse Rate 126 H 122 H Respiratory Rate 18 Blood Pressure 180/81 H Pulse Oximetry 91 91 Oxygen Delivery Method 12/15/22 16:42 12/15/22 16:42 12/15/22 17:00 Temperature Pulse Rate 108 H 122 H Respiratory Rate 14 26 H Blood Pressure 170/80 H Pulse Oximetry 95 95 Oxygen Delivery Method 12/15/22 17:39 12/15/22 18:00 12/15/22 18:30 Temperature Pulse Rate 117 H 112 H 112 H Respiratory Rate Blood Pressure Pulse Oximetry 94 92 Oxygen Delivery Method 12/15/22 19:00 12/15/22 19:50 Temperature 99 F Pulse Rate 113 H 114 H Respiratory Rate 20 Blood Pressure 142/82 H Pulse Oximetry 95 Oxygen Delivery Method Room Air <Aretha Snell DO - Last Filed: 12/17/22 07:24> Orders Ordered: Discontinued Medications Levofloxacin (Levofloxacin 250 Mg Tablet) 750 mg PO NOW ONE Stop: 12/15/22 19:37 Last Admin: 12/15/22 19:48 Dose: 750 mg Documented By: OW Vital Signs Vital signs: Vital Signs - 8 hr 12/15/22 13:18 12/15/22 15:49 12/15/22 15:47 Temperature 97.4 F L Pulse Rate 109 H 103 H Respiratory Rate 18 28 H Blood Pressure 164/72 H 176/73 H 176/73 H Pulse Oximetry 96 94 Oxygen Delivery Method Room Air Room Air 12/15/22 15:47 12/15/22 16:00 12/15/22 16:00 Temperature Pulse Rate 103 H 106 H Respiratory Rate 20 Blood Pressure 167/79 H Pulse Oximetry 95 95 Oxygen Delivery Method 12/15/22 16:31 12/15/22 16:32 12/15/22 16:32 Temperature Pulse Rate 126 H 122 H Respiratory Rate 18 Blood Pressure 180/81 H Pulse Oximetry 91 91 Oxygen Delivery Method 12/15/22 16:42 12/15/22 16:42 12/15/22 17:00 Temperature Pulse Rate 108 H 122 H Respiratory Rate 14 26 H Blood Pressure 170/80 H Pulse Oximetry 95 95 Oxygen Delivery Method 12/15/22 17:39 12/15/22 18:00 12/15/22 18:30 Temperature Pulse Rate 117 H 112 H 112 H Respiratory Rate Blood Pressure Pulse Oximetry 94 92 Oxygen Delivery Method 12/15/22 19:00 12/15/22 19:50 Temperature 99 F Pulse Rate 113 H 114 H Respiratory Rate 20 Blood Pressure 142/82 H Pulse Oximetry 95 Oxygen Delivery Method Room Air MDM - Male Genitourinary <Birgit Hubbard PA-C - Last Filed: 12/15/22 20:50> Lab Data 12/15/22 16:40 12/15/22 16:40 Labs: Lab Results 12/15/22 12/15/22 12/15/22 Range/Units 15:56 16:40 16:40 WBC 6.7 (4.5-11.0) X10^3/uL RBC 3.67 L (4.5-5.9) X10^6/uL Hgb 11.1 L (13.5-17.5) g/dL Hct 33.9 L (41-53) % MCV 92.4 (80-100) fL MCH 30.3 (26-34) PG MCHC 32.8 (30-36) % RDW 17.2 H (11.6-14.8) % Plt Count 178 (150-400) X10^3/uL Neut % (Auto) 72.8 (50-75) % Lymph % (Auto) 13.6 L (25-40) % Branch % (Auto) 9.9 (3-14) % Eos % (Auto) 2.5 (2-4) % Baso % (Auto) 1.2 (0-2) % Neut # (Auto) 4900 (6916-5267) /uL Lymph # (Auto) 900 L (3737-1724) /uL Branch # (Auto) 700 (0-900) /uL Eos # (Auto) 200 (0-450) /uL Baso # (Auto) 100 (0-100) /uL Sodium 134 L (137-145) mmol/L Potassium 3.7 (3.4-5.1) mmol/L Chloride 95 L (98-107) mmol/L Carbon Dioxide 31 (22-32) mmol/L BUN 10 (9-20) mg/dL Creatinine 0.69 (0.66-1.25) mg/dL Estimated GFR > 60 (>60) mL/min BUN/Creatinine Ratio 14.5 (6-22) Glucose 125 H (80-110) mg/dL Calcium 8.6 (8.4-10.2) mg/dL Total Bilirubin 2.8 H (0.2-1.3) mg/dL AST 59 (17-59) IU/L ALT 55 H (<50) IU/L Alkaline Phosphatase 158 H (38-126) U/L Total Protein 8.3 H (6.3-8.2) g/dL Albumin 4.0 (3.5-5.0) g/dL Globulin 4.3 H (1.7-4.1) g/dL Albumin/Globulin Ratio 0.9 L (1.0-2.8) Urine Color Brown Urine Appearance Cloudy Urine pH 7.0 (4.5-8.0) Ur Specific [place] 1.015 (1.000-1.035) Urine Protein 3+ H (Negative) Urine Glucose (UA) Negative (Negative) g/dL Urine Ketones Trace H (NEGATIVE) Urine Occult Blood 3+ H (Negative) Urine Nitrate Positive H (Negative) Urine Bilirubin 2+ H (NEGATIVE) Ur Bilirubin Confirm Negative (Negative) Urine Urobilinogen 4.0 H (0.2) E.U./dL Ur Leukocyte Esterase 3+ H (NEGATIVE) Urine RBC >100/hpf H (0-5/HPF) Urine WBC 10-30/hpf H (0-5/HPF) Ur Squamous Epith Cells 0-1 /hpf (0-5/HPF) Amorphous Sediment 1+ Urine Bacteria Many (>30) H (None) Ur Culture Indicated? Specimen cultured MDM Narrative Medical decision making narrative: 67-year-old male with past medical history of venous insufficiency, prostate cancer, gout, frequent UTIs presents to the ED with 5-7 days of hematuria. Concern for UTI versus pyelonephritis versus internal injuries from the fall versus rib fracture/dislocation versus other. Will obtain UA, labs, CT chest abdomen pelvis. Patient is able to empty bladder, with postvoid residual about 150 CC. Will reassess. Labs within normal limits. Urine positive for urinary tract infection. CT abdomen pelvis with no acute findings. Discussed findings with patient. Patient started on levofloxacin for the UTI. ED return precautions were discussed with patient. Patient verbalized understanding. Medical records reviewed: Yes <Aretha Snell, - Last Filed: 12/17/22 07:24> Lab Data Labs: Lab Results 12/15/22 12/15/22 12/15/22 Range/Units 15:56 16:40 16:40 WBC 6.7 (4.5-11.0) X10^3/uL RBC 3.67 L (4.5-5.9) X10^6/uL Hgb 11.1 L (13.5-17.5) g/dL Hct 33.9 L (41-53) % MCV 92.4 (80-100) fL MCH 30.3 (26-34) PG MCHC 32.8 (30-36) % RDW 17.2 H (11.6-14.8) % Plt Count 178 (150-400) X10^3/uL Neut % (Auto) 72.8 (50-75) % Lymph % (Auto) 13.6 L (25-40) % Branch % (Auto) 9.9 (3-14) % Eos % (Auto) 2.5 (2-4) % Baso % (Auto) 1.2 (0-2) % Neut # (Auto) 4900 (8008-5945) /uL Lymph # (Auto) 900 L (7350-0849) /uL Branch # (Auto) 700 (0-900) /uL Eos # (Auto) 200 (0-450) /uL Baso # (Auto) 100 (0-100) /uL Sodium 134 L (137-145) mmol/L Potassium 3.7 (3.4-5.1) mmol/L Chloride 95 L (98-107) mmol/L Carbon Dioxide 31 (22-32) mmol/L BUN 10 (9-20) mg/dL Creatinine 0.69 (0.66-1.25) mg/dL Estimated GFR > 60 (>60) mL/min BUN/Creatinine Ratio 14.5 (6-22) Glucose 125 H (80-110) mg/dL Calcium 8.6 (8.4-10.2) mg/dL Total Bilirubin 2.8 H (0.2-1.3) mg/dL AST 59 (17-59) IU/L ALT 55 H (<50) IU/L Alkaline Phosphatase 158 H (38-126) U/L Total Protein 8.3 H (6.3-8.2) g/dL Albumin 4.0 (3.5-5.0) g/dL Globulin 4.3 H (1.7-4.1) g/dL Albumin/Globulin Ratio 0.9 L (1.0-2.8) Urine Color Brown Urine Appearance Cloudy Urine pH 7.0 (4.5-8.0) Ur Specific [place] 1.015 (1.000-1.035) Urine Protein 3+ H (Negative) Urine Glucose (UA) Negative (Negative) g/dL Urine Ketones Trace H (NEGATIVE) Urine Occult Blood 3+ H (Negative) Urine Nitrate Positive H (Negative) Urine Bilirubin 2+ H (NEGATIVE) Ur Bilirubin Confirm Negative (Negative) Urine Urobilinogen 4.0 H (0.2) E.U./dL Ur Leukocyte Esterase 3+ H (NEGATIVE) Urine RBC >100/hpf H (0-5/HPF) Urine WBC 10-30/hpf H (0-5/HPF) Ur Squamous Epith Cells 0-1 /hpf (0-5/HPF) Amorphous Sediment 1+ Urine Bacteria Many (>30) H (None) Ur Culture Indicated? Specimen cultured Discharge Plan Departure Patient Disposition: Home Clinical Impression: Acute UTI Instructions: DI for Urinary Tract Infection (UTI) Activity Restrictions/Additional Instructions: You were evaluated in the ED today for blood in your urine. Your labs, CT abdomen pelvis were without acute findings. Your urine was positive for a urinary tract infection. You are being prescribed levofloxacin for the UTI. Please follow-up with your PCP or urologist in 5-7 days. Return to the ED if your symptoms worsen, you develop a fever, chills, vomiting. Prescriptions: New levofloxacin 750 mg tablet 750 mg PO DAILY 7 Days Qty: 7 0RF No Action potassium chloride 10 mEq tablet extended release 10 meq PO DAILY Qty: 90 1RF furosemide 20 mg tablet 20 mg PO BID Qty: 180 1RF ropinirole 2 mg tablet 2 mg PO BEDTIME Rx Instructions: 2-3 hrs before bedtime. doxazosin 8 mg tablet 8 mg PO BEDTIME Rx Instructions: 2-3 hrs before bed. oxybutynin chloride 5 mg tablet extended release 24hr 5 mg PO BEDTIME Rx Instructions: 2-3 hrs before bed trazodone 50 mg tablet 50 mg PO DAILY Rx Instructions: 2-3 hrs before bed (DME) Disabled Parking Qty: 1 0RF Rx Instructions: Patient qualifies for disabled parking as per the attached form. Ensure Original Liquid 1 ea PO QID Qty: 75494 12RF ferrous sulfate 325 mg (65 mg iron) tablet 325 mg PO BID Referrals: Vince Goldstein MD [Primary Care Provider] - Stand Alone Forms: Patient Portal/API <Aretha Snell DO - Last Filed: 12/17/22 07:24> Cosign ED Attending Fernandoature Attestation: I was immediately available in the department for consultation. Documentation has been reviewed.
[2022-12-15] MEDS: levoFLOXacin 250 MG TABLET 750 MG PO (19:48)
== END 2022-12-15 20:03 | disposition home or self-care (01) ==
PROVIDERS: Emergency Medicine; Emergency Provider Student in an Organized Health Care Education/Training Program; PCP Internal Medicine
DX: N39.0 Urinary tract infection, site not specified (principal); R31.9 Hematuria, unspecified
CPT/HCPCS: 51798; 71260; 74177; 80053; 81001; 85025; 87077; 87086; 87186; 99284; Q9967

== ENCOUNTER → 2023-01-09 08:43 | Outpatient (CLI) | payer MEDICARE, MEDICAID, SELFPAY ==
[2022-06-20 19:07] VITALS: BMI 60.5
[2023-01-09 09:46] LABS: Prostate Specific Antigen < 0.064 ng/mL (0.10-4.00)
== END ==
PROVIDERS: PCP Internal Medicine; Referring Provider Urology; Visit Provider Urology
DX: C61 Malignant neoplasm of prostate (principal)
CPT/HCPCS: 36415; 84153

== ENCOUNTER 2023-03-17 09:16 | Emergency (ER) | payer MEDICARE, MEDICAID, SELFPAY ==
[2022-06-20 19:07] VITALS: BMI 60.5
[2023-03-17] VITALS (15 sets, daily range): BP systolic 120–139; BP diastolic 57–70; PULSE 100–130; RESP 22–34; TEMP 37.6; O2SAT 90–99; BMI 58.3
--- NOTE | 2023-03-17 09:27 | DI.RAD.S_ITS ---
PROCEDURE: XR CHEST 1V INDICATIONS: suspected sepsis TECHNIQUE: One view of the chest was acquired. COMPARISON: [facility], CR, XR CHEST 1V, 06/20/2022, 13:21. FINDINGS: Surgical changes and devices: None. Lungs and pleura: Mild diffuse interstitial prominence. This may be accentuated by mild respiratory motion artifact. No focal consolidation. No pneumothorax or pleural effusion. Mediastinum: Mediastinal contours appear normal. Heart size is normal. Bones and chest wall: No suspicious bony lesions. Overlying soft tissues appear unremarkable. IMPRESSION: Mild diffuse interstitial prominence which may be accentuated by mild motion artifact. Findings may be related to infectious or inflammatory process. No focal consolidation. Dictated by: Derrick Jim M.D. on 03/17/2023 at 9:52 Approved by: Derrick Jim M.D. on 03/17/2023 at 9:56
--- NOTE | 2023-03-17 09:33 | ED.MALEGU ---
HPI - Male Genitourinary General Chief complaint: Fever Stated complaint: urination blood/ pain in left side Time Seen by Provider: 03/17/23 09:28 Source: patient Mode of arrival: Wheelchair History of Present Illness HPI Narrative: Patient is a 67-year-old male history of hematuria, UTIs, morbid obesity, SIRIA, nephrolithiasis, presents today with hematuria. He said that he had some body aches since last night. He had difficulty urinating and then he urinated out a large blood clot. He was having some back pain but now it has resolved. He is noted to be tachycardic heart rate in the 120's, no abdominal pain nausea or vomiting. No chest pain palpitations shortness of breath. He denies any cardiac history including arrhythmia acute coronary disease or congestive heart failure. Related Data Home Medications Medication Instructions Recorded Confirmed doxazosin 8 mg tablet 8 mg PO BEDTIME 06/26/20 12/19/22 oxybutynin chloride 5 mg 5 mg PO BEDTIME 06/26/20 12/19/22 tablet,extended release 24 hr ropinirole 2 mg tablet 2 mg PO BEDTIME 06/26/20 12/19/22 trazodone 50 mg tablet 50 mg PO DAILY 06/26/20 12/19/22 ferrous sulfate 325 mg (65 mg 325 mg PO BID 09/25/22 12/19/22 iron) tablet aspirin 81 mg tablet 81 mg PO DAILY 03/17/23 03/17/23 Previous Rx's Medication Instructions Recorded Disabled Parking #1 ea 06/26/20 furosemide 20 mg tablet 20 mg PO BID #180 tabs 02/11/23 potassium chloride 10 mEq 10 meq PO DAILY #90 tabs 02/11/23 tablet,extended release food supplemt, lactose-reduced 1 ea PO QID #28,440 mL 02/12/23 (Ensure Original oral liquid) cephalexin 500 mg capsule 500 mg PO BID 7 days #14 caps 03/17/23 Allergies Allergy/AdvReac Type Severity Reaction Status Date / Time No Known Drug Allergies Allergy Verified 03/17/23 09:56 Review of Systems Review of Systems ROS Unobtainable: All systems reviewed & are unremarkable except as noted in HPI and below Patient History Medical History Anemia of chronic disease Chronic venous insufficiency (04/10/16) Eczema (~1996) Frequent UTI (~2017) 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 History of kidney stones History of prostate cancer (~2016) Iron deficiency Lower urinary tract symptoms Mixed hyperlipidemia Morbid obesity (08/16/15) Obstructive sleep apnea of adult (~2013) Pancreatitis (~1995) Phimosis Polyneuropathy, unspecified Primary insomnia (08/16/15) Recurrent sinusitis (~2007) Restless leg syndrome (~2013) Restrictive lung disease (08/16/15) Tinnitus (~1972) Surgical History Anesthesia History of common bile duct surgery (~1997) Status post knee surgery (~1993) Family History Brother Prostate cancer Liver cancer Father Parkinson disease Grandfather Hepatitis Grandfather History of heart disease Grandmother Cancer Social History household members: family Smoking Status: Never smoker alcohol intake: current Smoking Status: Never smoker alcohol intake frequency: a few times a week Substance Use Type: does not use Exam Initial Vital Signs Initial Vital Signs: Vital Signs Temperature 99.6 F 03/17/23 09:20 Pulse Rate 130 H 03/17/23 09:20 Respiratory Rate 24 03/17/23 09:20 Blood Pressure 135/70 03/17/23 09:20 Pulse Oximetry 99 03/17/23 09:20 Oxygen Delivery Method Room Air 03/17/23 09:20 GENERAL: Alert 59-year-old male BMI 58 HEENT: Head atraumatic,EOMI, pupils reactive, face symmetric, moist mucous membranes CARDIOVASCULAR: Regular rate and rhythm without murmurs, rubs or gallops. RESPIRATORY: Breath sounds equal bilaterally, no wheezes rales or rhonchi. ABDOMEN: Soft, nontender. Normoactive bowel sounds all 4 quadrants. No guarding or rebound. EXTREMITIES: Normal range of motion, no clubbing or edema. Neurovascularly intact NEUROLOGICAL: Alert and oriented x4.Normal gait and speech. SKIN: Warm, dry, no laceration, no petechiae, no rashes or lesions. Lower extremity chronic venous stasis Course Orders Ordered: ED Orders 03/17/23 09:27 XR chest 1V Stat EKG-12 Lead Stat RT Consult Eval and Treat NOW 03/17/23 09:30 Complete Blood Count AUTO DIFF Stat Comprehensive Metabolic Panel Stat Lactate (Lactic Acid) Stat Lipase Stat PTT Partial Thromboplastin Jaylon Stat Procalcitonin Stat Prothrombin Time INR Stat 03/17/23 10:12 Blood Culture Stat 03/17/23 10:27 UA Complete [Urinalysis and Microscopic] Stat Urine Culture Stat Discontinued Medications Sodium Chloride (Normal Saline 0.9%) 1,000 mls @ 1,000 mls/hr IV BOLUS ONE Stop: 03/17/23 10:26 Last Infusion: 03/17/23 11:25 Dose: 0 mls/hr Documented By: Admin: 03/17/23 09:49 Dose: 1,000 mls/hr Documented By: AT Sodium Chloride (Normal Saline 0.9%) 1,000 mls @ 1,000 mls/hr IV BOLUS ONE Stop: 03/17/23 11:19 Last Infusion: 03/17/23 12:48 Dose: 0 mls/hr Documented By: Infusion: 03/17/23 12:11 Dose: 999 mls/hr Documented By: Admin: 03/17/23 11:33 Dose: 799 mls/hr Documented By: RB Ceftriaxone Sodium 1,000 mg/ (Sodium Chloride) 100 mls @ 200 mls/hr IV NOW ONE Stop: 03/17/23 11:06 Last Infusion: 03/17/23 12:11 Dose: 0 mls/hr Documented By: Admin: 03/17/23 11:33 Dose: 200 mls/hr Documented By: RB Ondansetron HCl (Ondansetron 4 Mg/2 Ml Inj) 4 mg IV NOW PRN PRN Reason: Nausea And Vomiting Ondansetron HCl (Ondansetron 4 Mg Odt) 4 mg SL NOW PRN PRN Reason: Nausea And Vomiting Vital Signs Vital signs: Vital Signs - 8 hr 03/17/23 09:20 03/17/23 09:25 03/17/23 09:30 Temperature 99.6 F Pulse Rate 130 H 125 H 120 H Respiratory Rate 24 27 H 34 H Blood Pressure 135/70 Pulse Oximetry 99 94 93 Oxygen Delivery Method Room Air Room Air 03/17/23 09:44 03/17/23 09:45 03/17/23 09:45 Temperature Pulse Rate 107 H 108 H Respiratory Rate 31 H 31 H Blood Pressure 134/60 Pulse Oximetry 90 L Oxygen Delivery Method 03/17/23 10:00 03/17/23 10:00 03/17/23 10:15 Temperature Pulse Rate 106 H 118 H Respiratory Rate 26 H 22 Blood Pressure 139/63 Pulse Oximetry 92 94 Oxygen Delivery Method 03/17/23 10:15 03/17/23 10:30 03/17/23 10:45 Temperature Pulse Rate 116 H 100 H Respiratory Rate 23 28 H Blood Pressure 137/57 L Pulse Oximetry 91 Oxygen Delivery Method 03/17/23 10:45 03/17/23 11:00 03/17/23 11:00 Temperature Pulse Rate 105 H Respiratory Rate 30 H Blood Pressure 122/58 L 127/66 Pulse Oximetry 95 Oxygen Delivery Method Room Air 03/17/23 11:15 03/17/23 11:15 03/17/23 11:36 Temperature Pulse Rate 104 H 113 H Respiratory Rate 28 H Blood Pressure 120/58 L Pulse Oximetry 92 95 Oxygen Delivery Method Room Air Room Air 03/17/23 12:00 03/17/23 12:30 03/17/23 12:43 Temperature Pulse Rate 105 H 104 H Respiratory Rate 30 H 30 H Blood Pressure 121/65 Pulse Oximetry Oxygen Delivery Method 03/17/23 12:43 Temperature Pulse Rate 103 H Respiratory Rate 27 H Blood Pressure Pulse Oximetry 94 Oxygen Delivery Method MDM - Male Genitourinary Lab Data 03/17/23 09:30 03/17/23 09:30 Labs: Lab Results 03/17/23 03/17/23 03/17/23 Range/Units 09:30 09:30 09:30 WBC 9.4 (4.5-11.0) X10^3/uL RBC 3.56 L (4.5-5.9) X10^6/uL Hgb 10.9 L (13.5-17.5) g/dL Hct 32.7 L (41-53) % MCV 91.9 (80-100) fL MCH 30.5 (26-34) PG MCHC 33.2 (30-36) % RDW 17.2 H (11.6-14.8) % Plt Count 100 L (150-400) X10^3/uL Neut % (Auto) 82.2 H (50-75) % Lymph % (Auto) 8.1 L (25-40) % Travis % (Auto) 8.3 (3-14) % Eos % (Auto) 0.8 L (2-4) % Baso % (Auto) 0.6 (0-2) % Neut # (Auto) 7700 H (1454-7389) /uL Lymph # (Auto) 800 L (0807-2956) /uL Travis # (Auto) 800 (0-900) /uL Eos # (Auto) 100 (0-450) /uL Baso # (Auto) 100 (0-100) /uL PT 16.1 H (10.1-12.7) SECONDS INR 1.4 H (0.9-1.3) APTT 32 (26-36) SECONDS Sodium 133 L (137-145) mmol/L Potassium 4.2 (3.4-5.1) mmol/L Chloride 98 (98-107) mmol/L Carbon Dioxide 25 (22-32) mmol/L BUN 12 (9-20) mg/dL Creatinine 0.91 (0.66-1.25) mg/dL Estimated GFR > 60 (>60) mL/min BUN/Creatinine Ratio 13.2 (6-22) Glucose 139 H (80-110) mg/dL Lactate (0.7-2.1) mmol/L Calcium 8.7 (8.4-10.2) mg/dL Total Bilirubin 1.6 H (0.2-1.3) mg/dL AST 32 (17-59) IU/L ALT 35 (<50) IU/L Alkaline Phosphatase 110 (38-126) U/L Total Protein 7.9 (6.3-8.2) g/dL Albumin 4.0 (3.5-5.0) g/dL Globulin 3.9 (1.7-4.1) g/dL Albumin/Globulin Ratio 1.0 (1.0-2.8) Lipase 113 (23-300) U/L Procalcitonin 0.17 (<0.5) ng/mL Urine Color Urine Appearance Urine pH (4.5-8.0) Ur Specific Rochelle (1.000-1.035) Urine Protein (Negative) Urine Glucose (UA) (Negative) g/dL Urine Ketones (NEGATIVE) Urine Occult Blood (Negative) Urine Nitrate (Negative) Urine Bilirubin (NEGATIVE) Urine Urobilinogen (0.2) E.U./dL Ur Leukocyte Esterase (NEGATIVE) Urine RBC (0-5/HPF) Urine WBC (0-5/HPF) Ur Squamous Epith Cells (0-5/HPF) Urine Bacteria (None) Ur Culture Indicated? 03/17/23 03/17/23 03/17/23 Range/Units 09:30 10:27 12:22 WBC (4.5-11.0) X10^3/uL RBC (4.5-5.9) X10^6/uL Hgb (13.5-17.5) g/dL Hct (41-53) % MCV (80-100) fL MCH (26-34) PG MCHC (30-36) % RDW (11.6-14.8) % Plt Count (150-400) X10^3/uL Neut % (Auto) (50-75) % Lymph % (Auto) (25-40) % Travis % (Auto) (3-14) % Eos % (Auto) (2-4) % Baso % (Auto) (0-2) % Neut # (Auto) (0642-6538) /uL Lymph # (Auto) (6176-0808) /uL Travis # (Auto) (0-900) /uL Eos # (Auto) (0-450) /uL Baso # (Auto) (0-100) /uL PT (10.1-12.7) SECONDS INR (0.9-1.3) APTT (26-36) SECONDS Sodium (137-145) mmol/L Potassium (3.4-5.1) mmol/L Chloride (98-107) mmol/L Carbon Dioxide (22-32) mmol/L BUN (9-20) mg/dL Creatinine (0.66-1.25) mg/dL Estimated GFR (>60) mL/min BUN/Creatinine Ratio (6-22) Glucose (80-110) mg/dL Lactate 2.5 H 1.3 (0.7-2.1) mmol/L Calcium (8.4-10.2) mg/dL Total Bilirubin (0.2-1.3) mg/dL AST (17-59) IU/L ALT (<50) IU/L Alkaline Phosphatase (38-126) U/L Total Protein (6.3-8.2) g/dL Albumin (3.5-5.0) g/dL Globulin (1.7-4.1) g/dL Albumin/Globulin Ratio (1.0-2.8) Lipase (23-300) U/L Procalcitonin (<0.5) ng/mL Urine Color Yellow Urine Appearance Cloudy Urine pH 7.0 (4.5-8.0) Ur Specific Rochelle 1.015 (1.000-1.035) Urine Protein 1+ H (Negative) Urine Glucose (UA) Negative (Negative) g/dL Urine Ketones Negative (NEGATIVE) Urine Occult Blood 3+ H (Negative) Urine Nitrate Positive H (Negative) Urine Bilirubin Negative (NEGATIVE) Urine Urobilinogen 1.0 (0.2) E.U./dL Ur Leukocyte Esterase 3+ H (NEGATIVE) Urine RBC >100/hpf H (0-5/HPF) Urine WBC >100/hpf H (0-5/HPF) Ur Squamous Epith Cells 1-5 /hpf (0-5/HPF) Urine Bacteria Many (>30) H (None) Ur Culture Indicated? Specimen cultured Imaging Data Chest x-ray: Radiologist's Impression: PROCEDURE:? XR CHEST 1V ? INDICATIONS:? suspected sepsis ? TECHNIQUE:? One view of the chest was acquired.? ? COMPARISON:? [facility], , XR CHEST 1V, 06/20/2022, 13:21. ? FINDINGS:? ? Surgical changes and devices:? None.? ? Lungs and pleura:? Mild diffuse interstitial prominence.? This may be accentuated by mild respiratory motion artifact.? No focal consolidation.? No pneumothorax or pleural effusion. ? Mediastinum:? Mediastinal contours appear normal.? Heart size is normal.? ? Bones and chest wall:? No suspicious bony lesions.? Overlying soft tissues appear unremarkable.? ? IMPRESSION:? Mild diffuse interstitial prominence which may be accentuated by mild motion artifact.? Findings may be related to infectious or inflammatory process.? No focal consolidation.? ? ? Dictated by: Derrick Jim M.D. on 03/17/2023 at 9:52 ? ? Approved by: Derrick Jim M.D. on 03/17/2023 at 9:56 ? ECG Data Interpretation: Sinus tachycardia rate 110 NM interval 190 QRS 146 right bundle-branch block noted no ST changes or T-wave inversions MDM Narrative Medical decision making narrative: Patient 67-year-old male with history of frequent UTIs and morbid obesity presents today with signs and symptoms consistent with a UTI. He is found to have nitrates in his urine. He is no noted to be quite tachycardic heart rate in the 120s but heart rate improved with 2 L of IV fluids. He is given 1 dose of IV Rocephin. Lactate mildly elevated 2.5 improved to 1.3 with 2 L of IV fluids however no significant leukocytosis or electrolyte abnormality. Blood cultures are pending. However at this time patient is hemodynamically stable seems appropriate for outpatient antibiotics. Patient is not having any flank pain he says he has had kidney stones before this does not feel like previous kidney stone. He is no abdominal pain nausea vomiting. I see no need for imaging. No sign of severe sepsis. Discharge Plan Departure Patient Disposition: Home Clinical Impression: Acute UTI Instructions: DI for Urinary Tract Infection (UTI) Activity Restrictions/Additional Instructions: *You have been diagnosed with UTI *What to do: At this time you do a bladder infection. Will give you some antibiotics. Please be sure to stay hydrated *Continue to take medications as directed Tylenol 650 mg every 4-6 hours if needed for [id number] pain or fever Keflex mg twice a day for 7 days--> SENT TO [facility] *Follow up with your primary care provider in 2-3 days or call [phone] *Return to ER if you should have increasing difficulty urinating, increasing back pain persistent vomiting or any new, worsening or concerning symptoms Prescriptions: New cephalexin 500 mg capsule 500 mg PO BID 7 Days Qty: 14 0RF No Action furosemide 20 mg tablet 20 mg PO BID Qty: 180 0RF potassium chloride 10 mEq tablet extended release 10 meq PO DAILY Qty: 90 0RF Ensure Original Liquid 1 ea PO QID Qty: 56943 12RF ropinirole 2 mg tablet 2 mg PO BEDTIME Rx Instructions: 2-3 hrs before bedtime. doxazosin 8 mg tablet 8 mg PO BEDTIME Rx Instructions: 2-3 hrs before bed. oxybutynin chloride 5 mg tablet extended release 24hr 5 mg PO BEDTIME Rx Instructions: 2-3 hrs before bed trazodone 50 mg tablet 50 mg PO DAILY Rx Instructions: 2-3 hrs before bed (DME) Disabled Parking Qty: 1 0RF Rx Instructions: Patient qualifies for disabled parking as per the attached form. ferrous sulfate 325 mg (65 mg iron) tablet 325 mg PO BID Adult Low Dose Aspirin 81 mg Tablet 81 mg PO DAILY Patient Comments: Pt started 03/15 because it's healthy. Not prescribed by provider. Referrals: Vince Goldstein MD [Primary Care Provider] - Stand Alone Forms: Patient Portal/API
[2023-03-17] MEDS: SODIUM CHLORIDE 0.9% 1,000 ML 1000 ML IV (09:49)
[2023-03-17 09:55] LABS: Add Manual Diff / Slide Review NO; Basophils Absolute Auto 100 /uL (0-100); Basophils Percent Auto 0.6 % (0-2); Eosinophils Absolute Auto 100 /uL (0-450); Eosinophils Percent Auto 0.8 % (2-4); Hematocrit 32.7 % (41-53); Hemoglobin 10.9 g/dL (13.5-17.5); Lymphocytes Absolute Auto 800 /uL (1100-4500); Lymphocytes Percent Auto 8.1 % (25-40); Mean Corpuscular HGB Conc 33.2 % (30-36); Mean Corpuscular Hemoglobin 30.5 PG (26-34); Mean Corpuscular Volume 91.9 fL (80-100); Monocytes Absolute Auto 800 /uL (0-900); Monocytes Percent Auto 8.3 % (3-14); Neutrophils Absolute Auto 7700 /uL (1500-7000); Neutrophils Percent Auto 82.2 % (50-75); Platelet Count 100 X10^3/uL (150-400); Red Blood Cell Count 3.56 X10^6/uL (4.5-5.9); Red Cell Distribution Width 17.2 % (11.6-14.8); White Blood Cell Count 9.4 X10^3/uL (4.5-11.0)
[2023-03-17 10:02] LABS: INR 1.4 (0.9-1.3); Prothrombin Time 16.1 SECONDS (10.1-12.7)
[2023-03-17 10:04] LABS: PTT Partial Thromboplastin Tim 32 SECONDS (26-36)
[2023-03-17 10:05] LABS: Lactate (Lactic Acid) 2.5 mmol/L (0.7-2.1)
[2023-03-17 10:07] LABS: Alanine Aminotransferase 35 IU/L (<50); Alkaline Phosphatase 110 U/L (38-126); Aspartate Aminotransferase 32 IU/L (17-59); BUN Creatinine Ratio 13.2 (6-22); Bilirubin Total 1.6 mg/dL (0.2-1.3); Blood Urea Nitrogen 12 mg/dL (9-20); Calcium 8.7 mg/dL (8.4-10.2); Carbon Dioxide 25 mmol/L (22-32); Chloride 98 mmol/L (98-107); Estimated Glomerular Filt Rate > 60 mL/min (>60); Globulin 3.9 g/dL (1.7-4.1); Glucose 139 mg/dL (80-110); HEMOLYSIS < 15 (0-50); Lipase 113 U/L (23-300); Potassium 4.2 mmol/L (3.4-5.1); Sodium 133 mmol/L (137-145); Total Protein 7.9 g/dL (6.3-8.2)
[2023-03-17 10:22] LABS: Procalcitonin 0.17 ng/mL (<0.5)
[2023-03-17 10:50] LABS: Appearance Urine UA CLOUDY; Bilirubin Urine UA NEGATIVE (NEGATIVE); Color Urine UA YELLOW; Glucose Urine UA NEGATIVE (Negative); Ketones Urine UA NEGATIVE (NEGATIVE); Leukocyte Esterase Urine UA 3+ (NEGATIVE); Nitrite Urine UA POSITIVE (Negative); Occult Blood Urine UA 3+ (Negative); Protein Urine UA 1+ (Negative); Specific Gravity Urine UA 1.015 (1.000-1.035)
[2023-03-17 11:02] LABS: Bacteria Urine Many (>30); RBC Urine >100/HPF (0-5/HPF); Squamous Epithelial Cell Urine 1-5 /HPF (0-5/HPF); WBC Urine >100/HPF (0-5/HPF)
[2023-03-17 11:03] LABS: Culture Indicated Urine Specimen Cultured
[2023-03-17] MEDS: cefTRIAXone 1,000 MG in SODIUM CHLORIDE 0.9% 100 ML 200 MG IV (11:33)
[2023-03-17] MEDS: SODIUM CHLORIDE 0.9% 1,000 ML 799 ML IV (11:33)
[2023-03-17 11:47] LABS: Reflexed Lactate in 2 Hours Y
[2023-03-17 12:49] LABS: Lactate 2HR (Lactic Acid Rflx) 1.3 mmol/L (0.7-2.1)
== END 2023-03-17 12:48 | disposition home or self-care (01) ==
PROVIDERS: Emergency Provider Emergency Medicine; PCP Internal Medicine
DX: N39.0 Urinary tract infection, site not specified (principal); R00.0 Tachycardia, unspecified; I45.10 Unspecified right bundle-branch block
CPT/HCPCS: 36415; 71045; 80053; 81001; 83605; 83690; 84145; 85025; 85610; 85730; 87040; 87077; 87086; 93005; 93010; 96365; 99284; J0696

== ENCOUNTER 2023-06-06 12:21 | Inpatient (IN) | payer MEDICARE, MEDICAID, SELFPAY ==
[2022-06-20 19:07] VITALS: BMI 60.5
[2023-06-06] VITALS (14 sets, daily range): BP systolic 96–151; BP diastolic 50–67; PULSE 86–122; RESP 18–34; TEMP 36.3–37.6; O2SAT 88–97; BMI 57.7; BMI 59.3
--- NOTE | 2023-06-06 13:13 | DI.RAD.S_ITS ---
PROCEDURE: XR CHEST 1V INDICATIONS: suspected sepsis TECHNIQUE: One view of the chest was acquired. COMPARISON: [facility], CT, CT CHEST ABD PEL W CON, 12/15/2022, 17:25. [facility], CR, XR CHEST 1V, 03/17/2023, 9:37. [facility], CR, XR CHEST 1V, 06/20/2022, 13:21. FINDINGS: This study is limited by body habitus. Surgical changes and devices: None. Lungs and pleura: An incomplete inspiratory result is noted, causing a crowded appearance to the lung markings. No focal infiltrates are seen. No large pneumothorax or significant pleural effusions are seen. Mediastinum: Mediastinal contours appear normal. Heart size is at the upper limits of normal. Bones and chest wall: No suspicious bony lesions. Overlying soft tissues appear unremarkable. IMPRESSION: Low lung volumes, without myles focal infiltrates. Dictated by: Cristofer Morales M.D. on 06/06/2023 at 13:30 Approved by: Cristofer Morales M.D. on 06/06/2023 at 13:31
[2023-06-06 13:43] LABS: INR 1.4 (0.9-1.3); Prothrombin Time 15.8 SECONDS (10.1-12.7)
[2023-06-06 13:45] LABS: Add Manual Diff / Slide Review NO; Basophils Absolute Auto 0 /uL (0-100); Basophils Percent Auto 0.4 % (0-2); Eosinophils Absolute Auto 100 /uL (0-450); Eosinophils Percent Auto 0.5 % (2-4); Hemoglobin 8.2 g/dL (13.5-17.5); Lymphocytes Absolute Auto 300 /uL (1100-4500); Lymphocytes Percent Auto 2.2 % (25-40); Mean Corpuscular HGB Conc 32.6 % (30-36); Mean Corpuscular Hemoglobin 30.2 PG (26-34); Mean Corpuscular Volume 92.6 fL (80-100); Monocytes Absolute Auto 500 /uL (0-900); Monocytes Percent Auto 4.4 % (3-14); Neutrophils Absolute Auto 10600 /uL (1500-7000); Neutrophils Percent Auto 92.5 % (50-75); PTT Partial Thromboplastin Tim 30 SECONDS (26-36); Platelet Count 119 X10^3/uL (150-400); Red Blood Cell Count 2.71 X10^6/uL (4.5-5.9); Red Cell Distribution Width 19.7 % (11.6-14.8); White Blood Cell Count 11.4 X10^3/uL (4.5-11.0)
[2023-06-06] MEDS: SODIUM CHLORIDE 0.9% 1,000 ML 1000 ML IV ×3 (13:46→20:48)
[2023-06-06] MEDS: ONDANSETRON 4 MG/2 ML INJ IV (13:47)
[2023-06-06 13:49] LABS: Alanine Aminotransferase 43 IU/L (<50); Albumin 3.4 g/dL (3.5-5.0); Albumin Globulin Ratio 0.8 (1.0-2.8); Alkaline Phosphatase 168 U/L (38-126); Aspartate Aminotransferase 44 IU/L (17-59); BUN Creatinine Ratio 10.7 (6-22); Bilirubin Total 1.9 mg/dL (0.2-1.3); Blood Urea Nitrogen 26 mg/dL (9-20); Calcium 9.3 mg/dL (8.4-10.2); Carbon Dioxide 22 mmol/L (22-32); Chloride 104 mmol/L (98-107); Estimated Glomerular Filt Rate 28 mL/min (>60); Globulin 4.5 g/dL (1.7-4.1); Glucose 140 mg/dL (80-110); HEMOLYSIS < 15 (0-50); Lactate (Lactic Acid) 1.7 mmol/L (0.7-2.1); Lipase 122 U/L (23-300); Potassium 4.3 mmol/L (3.4-5.1); Sodium 135 mmol/L (137-145); Total Protein 7.9 g/dL (6.3-8.2)
[2023-06-06 14:02] LABS: Bacteria Urine Many (>30); RBC Urine 5-10/HPF (0-5/HPF); Squamous Epithelial Cell Urine None Seen (0-5/HPF); WBC Urine >100/HPF (0-5/HPF)
[2023-06-06 14:03] LABS: Amorphous Sediment Urine 1+; Appearance Urine UA TURBID; Color Urine UA RED; Culture Indicated Urine Specimen Cultured; Mucus Urine 1+ (Negative)
[2023-06-06 14:05] LABS: Procalcitonin 0.57 ng/mL (<0.5)
--- NOTE | 2023-06-06 15:25 | ED.GENADULT ---
HPI - General Adult <Samuel Burk - Last Filed: 06/07/23 06:43> General Chief complaint: Urogenital-Male Stated complaint: states bladder infection/trouble urinating Time Seen by Provider: 06/06/23 15:25 Source: patient Mode of arrival: Wheelchair History of Present Illness HPI narrative: 67-year-old male with history of prostate cancer with previous radiation presents today with intermittent fevers, generally feeling unwell. He states that last night he had blood in his urine and the passage of the occasional clots but has been unable to urinate since about 5:00 a.m. he denies runny nose, sore throat or cough. He is no chest pain or shortness of breath. He denies any upper abdominal pain but does have some suprapubic fullness. He states that he has what his urologist have described as ?disappearing penis?. He had been sent to urology and [place] previously and there was difficulty performing cystoscopy, he was eventually referred to the [facility] and was told that there was not a surgical intervention that could be performed. He historically has difficulty urinating but usually able to produce a urine stream. Related Data Home Medications Medication Instructions Recorded Confirmed doxazosin 8 mg tablet 8 mg PO BEDTIME 06/26/20 06/06/23 oxybutynin chloride 5 mg 5 mg PO BEDTIME 06/26/20 06/06/23 tablet,extended release 24 hr ropinirole 2 mg tablet 2 mg PO BEDTIME 06/26/20 06/06/23 trazodone 50 mg tablet 50 mg PO BEDTIME 06/26/20 06/06/23 ferrous sulfate 325 mg (65 mg 325 mg PO DAILY 09/25/22 06/06/23 iron) tablet aspirin 81 mg tablet 81 mg PO DAILY 03/17/23 06/06/23 doxazosin 8 mg tablet 8 mg PO ONCE PM 06/06/23 06/06/23 Previous Rx's Medication Instructions Recorded food supplemt, lactose-reduced 1 ea PO QID #28,440 mL 02/12/23 (Ensure Original oral liquid) furosemide 20 mg tablet 20 mg PO BID #180 tabs 05/15/23 potassium chloride 10 mEq 10 meq PO DAILY #90 tabs 05/15/23 tablet,extended release Allergies Allergy/AdvReac Type Severity Reaction Status Date / Time No Known Drug Allergies Allergy Verified 06/06/23 12:39 Review of Systems <Samuel Burk DO - Last Filed: 06/07/23 06:43> Review of Systems Narrative: GENERAL: See HPI HEENT: Denies sinus pain, ear pain, sore throat, difficulty swallowing, dizziness. RESPIRATORY: Denies dyspnea, cough, wheezing, hemoptysis, sputum. CARDIOVASCULAR: Denies chest pain, palpitations, orthopnea, edema, GASTROINTESTINAL: See HPI : See HPI MUSCULOSKELETAL: denies weakness, joint pain, or bony pain SKIN: Denies rash, skin lesions, or other NEUROLOGIC: Denies weakness, headache, numbness, change in speech, confusion, seizures, incoordination. PSYCHIATRIC: No concerning psychosocial issues. 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 History of kidney stones History of prostate cancer (~2016) Iron deficiency Lower urinary tract symptoms Mixed hyperlipidemia Morbid obesity (08/16/15) Obstructive sleep apnea of adult (~2013) Pancreatitis (~1995) Phimosis Polyneuropathy, unspecified Primary insomnia (08/16/15) Recurrent sinusitis (~2007) Restless leg syndrome (~2013) Restrictive lung disease (08/16/15) Tinnitus (~1972) Urinary incontinence Surgical History Anesthesia History of common bile duct surgery (~1997) Status post knee surgery (~1993) Family History Brother Prostate cancer Liver cancer Father Parkinson disease Grandfather Hepatitis Grandfather History of heart disease Grandmother Cancer Social History household members: family Smoking Status: Never smoker alcohol intake: current Smoking Status: Never smoker alcohol intake frequency: a few times a week Substance Use Type: does not use Exam <Samuel Burk DO - Last Filed: 06/07/23 06:43> Narrative Exam Narrative: GENERAL: [67] year old patient appears stated age. Well-developed patient, in mild distress. HEAD: Atraumatic. Normocephalic. EYES: Pupils equal round and reactive. Extraocular motions intact. No scleral icterus. No injection or drainage. ENT: Nose without bleeding, purulent drainage. Throat without erythema, tonsillar hypertrophy or exudate. Airway patent. NECK: Trachea midline. Non tender CARDIOVASCULAR: Regular rate and rhythm without murmurs, gallops, or rubs. RESPIRATORY: Clear to auscultation. Breath sounds equal bilaterally. No wheezes, rales, or rhonchi. GASTROINTESTINAL: Abdomen soft, non-tender, nondistended. EXTREMITIES: No edema or joint tenderness. BACK: Nontender without deformity or crepitance. No flank tenderness. NEURO: AOx3. SKIN: No rash or erythema of visible areas Initial Vital Signs Initial Vital Signs: Vital Signs Temperature 99.7 F H 06/06/23 12:34 Pulse Rate 121 H 06/06/23 12:34 Respiratory Rate 18 06/06/23 12:34 Blood Pressure 116/57 L 06/06/23 12:34 Pulse Oximetry 93 06/06/23 12:34 Oxygen Delivery Method Room Air 06/06/23 12:34 <Aretha Snell, DO - Last Filed: 06/07/23 01:27> Initial Vital Signs Initial Vital Signs: Vital Signs Temperature 99.7 F H 06/06/23 12:34 Pulse Rate 121 H 06/06/23 12:34 Respiratory Rate 18 06/06/23 12:34 Blood Pressure 116/57 L 06/06/23 12:34 Pulse Oximetry 93 06/06/23 12:34 Oxygen Delivery Method Room Air 06/06/23 12:34 Course <Samuel Burk DO - Last Filed: 06/07/23 06:43> Orders Ordered: Acetaminophen (Acetaminophen 325 Mg Tablet) 650 mg PO Q6H PRN PRN Reason: Fever/Mild Pain (1-3) Aspirin (Aspirin Ec 81 Mg Tablet) 81 mg PO DAILY CHHAYA Calcium Carbonate (Calcium Carbonate 500 Mg Tab) 1,000 mg PO Q4HR PRN PRN Reason: Dyspepsia Doxazosin Mesylate (Doxazosin 2 Mg Tablet) 8 mg PO 1900 CHHAYA Ferrous Sulfate (Ferrous Sulfate 325 Mg Tablet) 325 mg PO BID FOR[facility]LY [facility], [facility] Last Admin: 06/07/23 00:23 Dose: 325 mg Documented By: MS Ceftriaxone Sodium 2,000 mg/ (Sodium Chloride) 100 mls @ 200 mls/hr IV Q24H [facility], [facility]1983 Morphine Sulfate (Morphine 4 Mg/Ml Inj) 3 mg IV Q4HR PRN PRN Reason: Pain, Severe (7-10) Naloxone HCl (Naloxone 0.4 Mg/Ml Vial) 0.2 mg IV Q2MIN PRN PRN Reason: Opiate Reversal Ondansetron HCl (Ondansetron 4 Mg Odt) 4 mg SL NOW PRN PRN Reason: Nausea And Vomiting Ondansetron HCl (Ondansetron 4 Mg/2 Ml Inj) 4 mg IV Q8HR PRN PRN Reason: Nausea And Vomiting Oxybutynin Chloride (Oxybutynin 5 Mg Er Tab) 5 mg PO BEDTIME [facility], [facility] Last Admin: 06/07/23 00:23 Dose: 5 mg Documented By: MS Ropinirole HCl (Ropinirole 1 Mg Tablet) 2 mg PO BEDTIME [facility], [facility] Last Admin: 06/07/23 00:22 Dose: 2 mg Documented By: MS Sennosides (Sennosides 8.6 Mg Tablet) 17.2 mg PO BEDTIME [facility], [facility]1983 Trazodone HCl (Trazodone 50 Mg Tablet) 50 mg PO BEDTIME [facility], [facility] Last Admin: 06/07/23 00:24 Dose: 50 mg Documented By: MS Discontinued Medications Sodium Chloride (Normal Saline 0.9%) 1,000 mls @ 1,000 mls/hr IV BOLUS ONE Stop: 06/06/23 14:12 Last Infusion: 06/06/23 15:56 Dose: 0 mls/hr Documented By: Admin: 06/06/23 13:46 Dose: 1,000 mls/hr Documented By: KOLTON Ceftriaxone Sodium 2,000 mg/ (Sodium Chloride) 100 mls @ 200 mls/hr IV NOW ONE Stop: 06/06/23 15:45 Last Infusion: 06/06/23 17:17 Dose: 0 mls/hr Documented By: Admin: 06/06/23 16:33 Dose: 200 mls/hr Documented By: NR Sodium Chloride (Normal Saline 0.9%) 1,000 mls @ 1,000 mls/hr IV BOLUS ONE Stop: 06/06/23 18:04 Last Infusion: 06/06/23 19:13 Dose: 0 mls/hr Documented By: Admin: 06/06/23 17:36 Dose: 1,000 mls/hr Documented By: RLS Sodium Chloride (Normal Saline 0.9%) 1,000 mls @ 1,000 mls/hr IV BOLUS ONE Stop: 06/06/23 20:53 Last Infusion: 06/06/23 22:00 Dose: 0 mls/hr Documented By: Admin: 06/06/23 20:48 Dose: 1,000 mls/hr Documented By: SB Sodium Chloride (Normal Saline 0.9%) 1,000 mls @ 100 mls/hr IV CONT CHHAYA Last Admin: 06/07/23 00:31 Dose: Not Given Documented By: FR Non-Formulary Medication (Doxazosin) 8 mg PO BEDTIME [facility], [facility] Ondansetron HCl (Ondansetron 4 Mg/2 Ml Inj) 4 mg IV NOW PRN PRN Reason: Nausea And Vomiting Last Admin: 06/06/23 13:47 Dose: 4 mg Documented By: TC Trazodone HCl (Trazodone 50 Mg Tablet) 50 mg PO DAILY [facility] Reevaluation(s) Reevaluation #1: Just after patient returns from CT scan he is able to urinate successfully, producing 350 cc of urine Vital Signs Vital signs: Vital Signs - 8 hr 06/06/23 18:00 06/06/23 20:00 06/06/23 19:00 Pulse Rate 97 H 86 99 H Respiratory Rate 20 Blood Pressure 96/54 L 100/50 L Pulse Oximetry 97 93 96 Oxygen Delivery Method Room Air Room Air Nasal Cannula Oxygen Flow Rate 1 06/06/23 20:00 Pulse Rate 95 H Respiratory Rate Blood Pressure Pulse Oximetry Oxygen Delivery Method Oxygen Flow Rate <Aretha Snell DO - Last Filed: 06/07/23 01:27> Orders Ordered: Acetaminophen (Acetaminophen 325 Mg Tablet) 650 mg PO Q6H PRN PRN Reason: Fever/Mild Pain (1-3) Aspirin (Aspirin Ec 81 Mg Tablet) 81 mg PO DAILY [facility] Calcium Carbonate (Calcium Carbonate 500 Mg Tab) 1,000 mg PO Q4HR PRN PRN Reason: Dyspepsia Doxazosin Mesylate (Doxazosin 2 Mg Tablet) 8 mg PO 1900 [facility] Ferrous Sulfate (Ferrous Sulfate 325 Mg Tablet) 325 mg PO BID [facility], [facility] Last Admin: 06/07/23 00:23 Dose: 325 mg Documented By: MS Ceftriaxone Sodium 2,000 mg/ (Sodium Chloride) 100 mls @ 200 mls/hr IV Q24H [facility] Morphine Sulfate (Morphine 4 Mg/Ml Inj) 3 mg IV Q4HR PRN PRN Reason: Pain, Severe (7-10) Naloxone HCl (Naloxone 0.4 Mg/Ml Vial) 0.2 mg IV Q2MIN PRN PRN Reason: Opiate Reversal Ondansetron HCl (Ondansetron 4 Mg Odt) 4 mg SL NOW PRN PRN Reason: Nausea And Vomiting Ondansetron HCl (Ondansetron 4 Mg/2 Ml Inj) 4 mg IV Q8HR PRN PRN Reason: Nausea And Vomiting Oxybutynin Chloride (Oxybutynin 5 Mg Er Tab) 5 mg PO BEDTIME [facility] Last Admin: 06/07/23 00:23 Dose: 5 mg Documented By: MS Ropinirole HCl (Ropinirole 1 Mg Tablet) 2 mg PO BEDTIME [facility] Last Admin: 06/07/23 00:22 Dose: 2 mg Documented By: MS Sennosides (Sennosides 8.6 Mg Tablet) 17.2 mg PO BEDTIME [facility] Trazodone HCl (Trazodone 50 Mg Tablet) 50 mg PO BEDTIME [facility] Last Admin: 06/07/23 00:24 Dose: 50 mg Documented By: MS Discontinued Medications Sodium Chloride (Normal Saline 0.9%) 1,000 mls @ 1,000 mls/hr IV BOLUS ONE Stop: 06/06/23 14:12 Last Infusion: 06/06/23 15:56 Dose: 0 mls/hr Documented By: Admin: 06/06/23 13:46 Dose: 1,000 mls/hr Documented By: KOLTON Ceftriaxone Sodium 2,000 mg/ (Sodium Chloride) 100 mls @ 200 mls/hr IV NOW ONE Stop: 06/06/23 15:45 Last Infusion: 06/06/23 17:17 Dose: 0 mls/hr Documented By: Admin: 06/06/23 16:33 Dose: 200 mls/hr Documented By: NR Sodium Chloride (Normal Saline 0.9%) 1,000 mls @ 1,000 mls/hr IV BOLUS ONE Stop: 06/06/23 18:04 Last Infusion: 06/06/23 19:13 Dose: 0 mls/hr Documented By: Admin: 06/06/23 17:36 Dose: 1,000 mls/hr Documented By: RLS Sodium Chloride (Normal Saline 0.9%) 1,000 mls @ 1,000 mls/hr IV BOLUS ONE Stop: 06/06/23 20:53 Last Infusion: 06/06/23 22:00 Dose: 0 mls/hr Documented By: Admin: 06/06/23 20:48 Dose: 1,000 mls/hr Documented By: SB Sodium Chloride (Normal Saline 0.9%) 1,000 mls @ 100 mls/hr IV CONT CHHAYA Last Admin: 06/07/23 00:31 Dose: Not Given Documented By: FR Non-Formulary Medication (Doxazosin) 8 mg PO BEDTIME [facility] Ondansetron HCl (Ondansetron 4 Mg/2 Ml Inj) 4 mg IV NOW PRN PRN Reason: Nausea And Vomiting Last Admin: 06/06/23 13:47 Dose: 4 mg Documented By: TC Trazodone HCl (Trazodone 50 Mg Tablet) 50 mg PO DAILY [facility] Vital Signs Vital signs: Vital Signs - 8 hr 06/06/23 18:00 06/06/23 20:00 06/06/23 19:00 Pulse Rate 97 H 86 99 H Respiratory Rate 20 Blood Pressure 96/54 L 100/50 L Pulse Oximetry 97 93 96 Oxygen Delivery Method Room Air Room Air Nasal Cannula Oxygen Flow Rate 1 06/06/23 20:00 Pulse Rate 95 H Respiratory Rate Blood Pressure Pulse Oximetry Oxygen Delivery Method Oxygen Flow Rate Medical Decision Making <Samuel Burk DO - Last Filed: 06/07/23 06:43> Lab Data 06/06/23 12:53 06/07/23 04:06 Labs: Lab Results 06/06/23 06/06/23 06/06/23 Range/Units 12:53 12:53 12:53 WBC 11.4 H (4.5-11.0) X10^3/uL RBC 2.71 L (4.5-5.9) X10^6/uL Hgb 8.2 L (13.5-17.5) g/dL Hct 25.0 L (41-53) % MCV 92.6 (80-100) fL MCH 30.2 (26-34) PG MCHC 32.6 (30-36) % RDW 19.7 H (11.6-14.8) % Plt Count 119 L (150-400) X10^3/uL Neut % (Auto) 92.5 H (50-75) % Lymph % (Auto) 2.2 L (25-40) % Delta % (Auto) 4.4 (3-14) % Eos % (Auto) 0.5 L (2-4) % Baso % (Auto) 0.4 (0-2) % Neut # (Auto) 21878 H (3226-7901) /uL Lymph # (Auto) 300 L (4134-0054) /uL Delta # (Auto) 500 (0-900) /uL Eos # (Auto) 100 (0-450) /uL Baso # (Auto) 0 (0-100) /uL PT 15.8 H (10.1-12.7) SECONDS INR 1.4 H (0.9-1.3) APTT 30 (26-36) SECONDS Sodium 135 L (137-145) mmol/L Potassium 4.3 (3.4-5.1) mmol/L Chloride 104 (98-107) mmol/L Carbon Dioxide 22 (22-32) mmol/L BUN 26 H (9-20) mg/dL Creatinine 2.42 H (0.66-1.25) mg/dL Estimated GFR 28 L (>60) mL/min BUN/Creatinine Ratio 10.7 (6-22) Glucose 140 H (80-110) mg/dL Lactate (0.7-2.1) mmol/L Calcium 9.3 (8.4-10.2) mg/dL Total Bilirubin 1.9 H (0.2-1.3) mg/dL AST 44 (17-59) IU/L ALT 43 (<50) IU/L Alkaline Phosphatase 168 H (38-126) U/L Total Protein 7.9 (6.3-8.2) g/dL Albumin 3.4 L (3.5-5.0) g/dL Globulin 4.5 H (1.7-4.1) g/dL Albumin/Globulin Ratio 0.8 L (1.0-2.8) Lipase 122 (23-300) U/L Procalcitonin 0.57 H (<0.5) ng/mL Urine Color Urine Appearance Urine pH Ur Specific [place] Urine Protein Urine Glucose (UA) Urine Ketones Urine Occult Blood Urine Nitrate Urine Bilirubin Urine Urobilinogen Ur Leukocyte Esterase Urine RBC (0-5/HPF) Urine WBC (0-5/HPF) Ur Squamous Epith Cells (0-5/HPF) Amorphous Sediment Urine Bacteria (None) Urine Mucus (Negative) Ur Culture Indicated? Ur Random Sodium (30-90) mmol/L Urine Creatinine mg/dL A.calcoaceticus-baumannii cmplx PCR (Not Detect) Bacteroides fragilis (Not Detect) Melina albicans (PCR) (Not Detect) Melina auris (PCR) (Not Detect) C. glabrata (PCR) (Not Detect) C. krusei (PCR) (Not Detect) C. parapsilosis (PCR) (Not Detect) C. tropicalis (PCR) (Not Detect) C. neoform/gattii (PCR) (Not Detect) Enterobacterales (PCR) (Not Detect) E. cloacae complex PCR (Not Detect) Enterococc faecalis PCR (Not Detect) Enterococc faecium PCR (Not Detect) E. coli (PCR) (Not Detect) H. influenzae (PCR) (Not Detect) Klebsiella aerogenes (PCR) (Not Detect) Klebsiella oxytoca PCR (Not Detect) Klebsiella pneumoniae (Not Detect) List. monocytogenes PCR (Not Detect) N. meningitidis (PCR) (Not Detect) Proteus species (PCR) (Not Detect) Salmonella spp. (PCR) (Not Detect) Serratia marcescens PCR (Not Detect) Staphylococcus sp PCR (Not Detect) Staph aureus (PCR) (Not Detect) Staph epidermidis (PCR) (Not Detect) Staph lugdunensis PCR (Not Detect) S. maltophilia (PCR) (Not Detect) Streptococcus sp PCR (Not Detect) Group A Strep (PCR) (Not Detect) Strep agalactiae (PCR) (Not Detect) Strep pneumoniae (PCR) (Not Detect) P. aeruginosa (PCR) (Not Detect) blaIMP Car res Gene PCR (Not Detect) KPC-Carbap Res Gene PCR (Not Detect) blaNDM Car Res Gene PCR (Not Detect) OXA-48 Carbapenem Resis Gene (PCR) (Not Detect) blaVIM Car Res Gene PCR (Not Detect) CTX-M Gene Resistance (PCR) (Not Detect) 06/06/23 06/06/23 06/06/23 Range/Units 12:53 12:53 13:31 WBC (4.5-11.0) X10^3/uL RBC (4.5-5.9) X10^6/uL Hgb (13.5-17.5) g/dL Hct (41-53) % MCV (80-100) fL MCH (26-34) PG MCHC (30-36) % RDW (11.6-14.8) % Plt Count (150-400) X10^3/uL Neut % (Auto) (50-75) % Lymph % (Auto) (25-40) % Delta % (Auto) (3-14) % Eos % (Auto) (2-4) % Baso % (Auto) (0-2) % Neut # (Auto) (4887-2771) /uL Lymph # (Auto) (4740-4182) /uL Delta # (Auto) (0-900) /uL Eos # (Auto) (0-450) /uL Baso # (Auto) (0-100) /uL PT (10.1-12.7) SECONDS INR (0.9-1.3) APTT (26-36) SECONDS Sodium (137-145) mmol/L Potassium (3.4-5.1) mmol/L Chloride (98-107) mmol/L Carbon Dioxide (22-32) mmol/L BUN (9-20) mg/dL Creatinine (0.66-1.25) mg/dL Estimated GFR (>60) mL/min BUN/Creatinine Ratio (6-22) Glucose (80-110) mg/dL Lactate 1.7 (0.7-2.1) mmol/L Calcium (8.4-10.2) mg/dL Total Bilirubin (0.2-1.3) mg/dL AST (17-59) IU/L ALT (<50) IU/L Alkaline Phosphatase (38-126) U/L Total Protein (6.3-8.2) g/dL Albumin (3.5-5.0) g/dL Globulin (1.7-4.1) g/dL Albumin/Globulin Ratio (1.0-2.8) Lipase (23-300) U/L Procalcitonin (<0.5) ng/mL Urine Color Red Urine Appearance Turbid Urine pH TNP Ur Specific [place] TNP Urine Protein TNP Urine Glucose (UA) TNP Urine Ketones TNP Urine Occult Blood TNP Urine Nitrate TNP Urine Bilirubin TNP Urine Urobilinogen TNP Ur Leukocyte Esterase TNP Urine RBC 5-10/hpf H (0-5/HPF) Urine WBC >100/hpf H (0-5/HPF) Ur Squamous Epith Cells None seen (0-5/HPF) Amorphous Sediment 1+ Urine Bacteria Many (>30) H (None) Urine Mucus 1+ H (Negative) Ur Culture Indicated? Specimen cultured Ur Random Sodium (30-90) mmol/L Urine Creatinine mg/dL A.calcoaceticus-baumannii cmplx PCR Not detected (Not Detect) Bacteroides fragilis Not detected (Not Detect) Melina albicans (PCR) Not detected (Not Detect) Melina auris (PCR) Not detected (Not Detect) C. glabrata (PCR) Not detected (Not Detect) C. krusei (PCR) Not detected (Not Detect) C. parapsilosis (PCR) Not detected (Not Detect) C. tropicalis (PCR) Not detected (Not Detect) C. neoform/gattii (PCR) Not detected (Not Detect) Enterobacterales (PCR) Detected H (Not Detect) E. cloacae complex PCR Not detected (Not Detect) Enterococc faecalis PCR Not detected (Not Detect) Enterococc faecium PCR Not detected (Not Detect) E. coli (PCR) Not detected (Not Detect) H. influenzae (PCR) Not detected (Not Detect) Klebsiella aerogenes (PCR) Not detected (Not Detect) Klebsiella oxytoca PCR Not detected (Not Detect) Klebsiella pneumoniae Not detected (Not Detect) List. monocytogenes PCR Not detected (Not Detect) N. meningitidis (PCR) Not detected (Not Detect) Proteus species (PCR) Not detected (Not Detect) Salmonella spp. (PCR) Not detected (Not Detect) Serratia marcescens PCR Not detected (Not Detect) Staphylococcus sp PCR Not detected (Not Detect) Staph aureus (PCR) Not detected (Not Detect) Staph epidermidis (PCR) Not detected (Not Detect) Staph lugdunensis PCR Not detected (Not Detect) S. maltophilia (PCR) Not detected (Not Detect) Streptococcus sp PCR Not detected (Not Detect) Group A Strep (PCR) Not detected (Not Detect) Strep agalactiae (PCR) Not detected (Not Detect) Strep pneumoniae (PCR) Not detected (Not Detect) P. aeruginosa (PCR) Not detected (Not Detect) blaIMP Car res Gene PCR Not detected (Not Detect) KPC-Carbap Res Gene PCR Not detected (Not Detect) blaNDM Car Res Gene PCR Not detected (Not Detect) OXA-48 Carbapenem Resis Gene (PCR) Not detected (Not Detect) blaVIM Car Res Gene PCR Not detected (Not Detect) CTX-M Gene Resistance (PCR) Not detected (Not Detect) 06/06/23 06/06/23 Range/Units 16:43 19:09 WBC (4.5-11.0) X10^3/uL RBC (4.5-5.9) X10^6/uL Hgb (13.5-17.5) g/dL Hct (41-53) % MCV (80-100) fL MCH (26-34) PG MCHC (30-36) % RDW (11.6-14.8) % Plt Count (150-400) X10^3/uL Neut % (Auto) (50-75) % Lymph % (Auto) (25-40) % Delta % (Auto) (3-14) % Eos % (Auto) (2-4) % Baso % (Auto) (0-2) % Neut # (Auto) (9265-5512) /uL Lymph # (Auto) (8502-4147) /uL Delta # (Auto) (0-900) /uL Eos # (Auto) (0-450) /uL Baso # (Auto) (0-100) /uL PT (10.1-12.7) SECONDS INR (0.9-1.3) APTT (26-36) SECONDS Sodium 136 L (137-145) mmol/L Potassium 5.2 H (3.4-5.1) mmol/L Chloride 107 (98-107) mmol/L Carbon Dioxide 22 (22-32) mmol/L BUN 29 H (9-20) mg/dL Creatinine 2.45 H (0.66-1.25) mg/dL Estimated GFR 28 L (>60) mL/min BUN/Creatinine Ratio 11.8 (6-22) Glucose 135 H (80-110) mg/dL Lactate (0.7-2.1) mmol/L Calcium 8.3 L (8.4-10.2) mg/dL Total Bilirubin (0.2-1.3) mg/dL AST (17-59) IU/L ALT (<50) IU/L Alkaline Phosphatase (38-126) U/L Total Protein (6.3-8.2) g/dL Albumin (3.5-5.0) g/dL Globulin (1.7-4.1) g/dL Albumin/Globulin Ratio (1.0-2.8) Lipase (23-300) U/L Procalcitonin (<0.5) ng/mL Urine Color Urine Appearance Urine pH Ur Specific [place] Urine Protein Urine Glucose (UA) Urine Ketones Urine Occult Blood Urine Nitrate Urine Bilirubin Urine Urobilinogen Ur Leukocyte Esterase Urine RBC (0-5/HPF) Urine WBC (0-5/HPF) Ur Squamous Epith Cells (0-5/HPF) Amorphous Sediment Urine Bacteria (None) Urine Mucus (Negative) Ur Culture Indicated? Ur Random Sodium 83 (30-90) mmol/L Urine Creatinine 61.3 mg/dL A.calcoaceticus-baumannii cmplx PCR (Not Detect) Bacteroides fragilis (Not Detect) Melina albicans (PCR) (Not Detect) Melina auris (PCR) (Not Detect) C. glabrata (PCR) (Not Detect) C. krusei (PCR) (Not Detect) C. parapsilosis (PCR) (Not Detect) C. tropicalis (PCR) (Not Detect) C. neoform/gattii (PCR) (Not Detect) Enterobacterales (PCR) (Not Detect) E. cloacae complex PCR (Not Detect) Enterococc faecalis PCR (Not Detect) Enterococc faecium PCR (Not Detect) E. coli (PCR) (Not Detect) H. influenzae (PCR) (Not Detect) Klebsiella aerogenes (PCR) (Not Detect) Klebsiella oxytoca PCR (Not Detect) Klebsiella pneumoniae (Not Detect) List. monocytogenes PCR (Not Detect) N. meningitidis (PCR) (Not Detect) Proteus species (PCR) (Not Detect) Salmonella spp. (PCR) (Not Detect) Serratia marcescens PCR (Not Detect) Staphylococcus sp PCR (Not Detect) Staph aureus (PCR) (Not Detect) Staph epidermidis (PCR) (Not Detect) Staph lugdunensis PCR (Not Detect) S. maltophilia (PCR) (Not Detect) Streptococcus sp PCR (Not Detect) Group A Strep (PCR) (Not Detect) Strep agalactiae (PCR) (Not Detect) Strep pneumoniae (PCR) (Not Detect) P. aeruginosa (PCR) (Not Detect) blaIMP Car res Gene PCR (Not Detect) KPC-Carbap Res Gene PCR (Not Detect) blaNDM Car Res Gene PCR (Not Detect) OXA-48 Carbapenem Resis Gene (PCR) (Not Detect) blaVIM Car Res Gene PCR (Not Detect) CTX-M Gene Resistance (PCR) (Not Detect) <Aretha Snell, DO - Last Filed: 06/07/23 01:27> Lab Data Labs: Lab Results 06/06/23 06/06/23 06/06/23 Range/Units 12:53 12:53 12:53 WBC 11.4 H (4.5-11.0) X10^3/uL RBC 2.71 L (4.5-5.9) X10^6/uL Hgb 8.2 L (13.5-17.5) g/dL Hct 25.0 L (41-53) % MCV 92.6 (80-100) fL MCH 30.2 (26-34) PG MCHC 32.6 (30-36) % RDW 19.7 H (11.6-14.8) % Plt Count 119 L (150-400) X10^3/uL Neut % (Auto) 92.5 H (50-75) % Lymph % (Auto) 2.2 L (25-40) % Delta % (Auto) 4.4 (3-14) % Eos % (Auto) 0.5 L (2-4) % Baso % (Auto) 0.4 (0-2) % Neut # (Auto) 24447 H (5065-1508) /uL Lymph # (Auto) 300 L (8923-5379) /uL Delta # (Auto) 500 (0-900) /uL Eos # (Auto) 100 (0-450) /uL Baso # (Auto) 0 (0-100) /uL PT 15.8 H (10.1-12.7) SECONDS INR 1.4 H (0.9-1.3) APTT 30 (26-36) SECONDS Sodium 135 L (137-145) mmol/L Potassium 4.3 (3.4-5.1) mmol/L Chloride 104 (98-107) mmol/L Carbon Dioxide 22 (22-32) mmol/L BUN 26 H (9-20) mg/dL Creatinine 2.42 H (0.66-1.25) mg/dL Estimated GFR 28 L (>60) mL/min BUN/Creatinine Ratio 10.7 (6-22) Glucose 140 H (80-110) mg/dL Lactate (0.7-2.1) mmol/L Calcium 9.3 (8.4-10.2) mg/dL Total Bilirubin 1.9 H (0.2-1.3) mg/dL AST 44 (17-59) IU/L ALT 43 (<50) IU/L Alkaline Phosphatase 168 H (38-126) U/L Total Protein 7.9 (6.3-8.2) g/dL Albumin 3.4 L (3.5-5.0) g/dL Globulin 4.5 H (1.7-4.1) g/dL Albumin/Globulin Ratio 0.8 L (1.0-2.8) Lipase 122 (23-300) U/L Procalcitonin 0.57 H (<0.5) ng/mL Urine Color Urine Appearance Urine pH Ur Specific [place] Urine Protein Urine Glucose (UA) Urine Ketones Urine Occult Blood Urine Nitrate Urine Bilirubin Urine Urobilinogen Ur Leukocyte Esterase Urine RBC (0-5/HPF) Urine WBC (0-5/HPF) Ur Squamous Epith Cells (0-5/HPF) Amorphous Sediment Urine Bacteria (None) Urine Mucus (Negative) Ur Culture Indicated? Ur Random Sodium (30-90) mmol/L Urine Creatinine mg/dL A.calcoaceticus-baumannii cmplx PCR (Not Detect) Bacteroides fragilis (Not Detect) Melina albicans (PCR) (Not Detect) Melina auris (PCR) (Not Detect) C. glabrata (PCR) (Not Detect) C. krusei (PCR) (Not Detect) C. parapsilosis (PCR) (Not Detect) C. tropicalis (PCR) (Not Detect) C. neoform/gattii (PCR) (Not Detect) Enterobacterales (PCR) (Not Detect) E. cloacae complex PCR (Not Detect) Enterococc faecalis PCR (Not Detect) Enterococc faecium PCR (Not Detect) E. coli (PCR) (Not Detect) H. influenzae (PCR) (Not Detect) Klebsiella aerogenes (PCR) (Not Detect) Klebsiella oxytoca PCR (Not Detect) Klebsiella pneumoniae (Not Detect) List. monocytogenes PCR (Not Detect) N. meningitidis (PCR) (Not Detect) Proteus species (PCR) (Not Detect) Salmonella spp. (PCR) (Not Detect) Serratia marcescens PCR (Not Detect) Staphylococcus sp PCR (Not Detect) Staph aureus (PCR) (Not Detect) Staph epidermidis (PCR) (Not Detect) Staph lugdunensis PCR (Not Detect) S. maltophilia (PCR) (Not Detect) Streptococcus sp PCR (Not Detect) Group A Strep (PCR) (Not Detect) Strep agalactiae (PCR) (Not Detect) Strep pneumoniae (PCR) (Not Detect) P. aeruginosa (PCR) (Not Detect) blaIMP Car res Gene PCR (Not Detect) KPC-Carbap Res Gene PCR (Not Detect) blaNDM Car Res Gene PCR (Not Detect) OXA-48 Carbapenem Resis Gene (PCR) (Not Detect) blaVIM Car Res Gene PCR (Not Detect) CTX-M Gene Resistance (PCR) (Not Detect) 06/06/23 06/06/23 06/06/23 Range/Units 12:53 12:53 13:31 WBC (4.5-11.0) X10^3/uL RBC (4.5-5.9) X10^6/uL Hgb (13.5-17.5) g/dL Hct (41-53) % MCV (80-100) fL MCH (26-34) PG MCHC (30-36) % RDW (11.6-14.8) % Plt Count (150-400) X10^3/uL Neut % (Auto) (50-75) % Lymph % (Auto) (25-40) % Delta % (Auto) (3-14) % Eos % (Auto) (2-4) % Baso % (Auto) (0-2) % Neut # (Auto) (4804-5997) /uL Lymph # (Auto) (3099-8855) /uL Delta # (Auto) (0-900) /uL Eos # (Auto) (0-450) /uL Baso # (Auto) (0-100) /uL PT (10.1-12.7) SECONDS INR (0.9-1.3) APTT (26-36) SECONDS Sodium (137-145) mmol/L Potassium (3.4-5.1) mmol/L Chloride (98-107) mmol/L Carbon Dioxide (22-32) mmol/L BUN (9-20) mg/dL Creatinine (0.66-1.25) mg/dL Estimated GFR (>60) mL/min BUN/Creatinine Ratio (6-22) Glucose (80-110) mg/dL Lactate 1.7 (0.7-2.1) mmol/L Calcium (8.4-10.2) mg/dL Total Bilirubin (0.2-1.3) mg/dL AST (17-59) IU/L ALT (<50) IU/L Alkaline Phosphatase (38-126) U/L Total Protein (6.3-8.2) g/dL Albumin (3.5-5.0) g/dL Globulin (1.7-4.1) g/dL Albumin/Globulin Ratio (1.0-2.8) Lipase (23-300) U/L Procalcitonin (<0.5) ng/mL Urine Color Red Urine Appearance Turbid Urine pH TNP Ur Specific [place] TNP Urine Protein TNP Urine Glucose (UA) TNP Urine Ketones TNP Urine Occult Blood TNP Urine Nitrate TNP Urine Bilirubin TNP Urine Urobilinogen TNP Ur Leukocyte Esterase TNP Urine RBC 5-10/hpf H (0-5/HPF) Urine WBC >100/hpf H (0-5/HPF) Ur Squamous Epith Cells None seen (0-5/HPF) Amorphous Sediment 1+ Urine Bacteria Many (>30) H (None) Urine Mucus 1+ H (Negative) Ur Culture Indicated? Specimen cultured Ur Random Sodium (30-90) mmol/L Urine Creatinine mg/dL A.calcoaceticus-baumannii cmplx PCR Not detected (Not Detect) Bacteroides fragilis Not detected (Not Detect) Melina albicans (PCR) Not detected (Not Detect) Melina auris (PCR) Not detected (Not Detect) C. glabrata (PCR) Not detected (Not Detect) C. krusei (PCR) Not detected (Not Detect) C. parapsilosis (PCR) Not detected (Not Detect) C. tropicalis (PCR) Not detected (Not Detect) C. neoform/gattii (PCR) Not detected (Not Detect) Enterobacterales (PCR) Detected H (Not Detect) E. cloacae complex PCR Not detected (Not Detect) Enterococc faecalis PCR Not detected (Not Detect) Enterococc faecium PCR Not detected (Not Detect) E. coli (PCR) Not detected (Not Detect) H. influenzae (PCR) Not detected (Not Detect) Klebsiella aerogenes (PCR) Not detected (Not Detect) Klebsiella oxytoca PCR Not detected (Not Detect) Klebsiella pneumoniae Not detected (Not Detect) List. monocytogenes PCR Not detected (Not Detect) N. meningitidis (PCR) Not detected (Not Detect) Proteus species (PCR) Not detected (Not Detect) Salmonella spp. (PCR) Not detected (Not Detect) Serratia marcescens PCR Not detected (Not Detect) Staphylococcus sp PCR Not detected (Not Detect) Staph aureus (PCR) Not detected (Not Detect) Staph epidermidis (PCR) Not detected (Not Detect) Staph lugdunensis PCR Not detected (Not Detect) S. maltophilia (PCR) Not detected (Not Detect) Streptococcus sp PCR Not detected (Not Detect) Group A Strep (PCR) Not detected (Not Detect) Strep agalactiae (PCR) Not detected (Not Detect) Strep pneumoniae (PCR) Not detected (Not Detect) P. aeruginosa (PCR) Not detected (Not Detect) blaIMP Car res Gene PCR Not detected (Not Detect) KPC-Carbap Res Gene PCR Not detected (Not Detect) blaNDM Car Res Gene PCR Not detected (Not Detect) OXA-48 Carbapenem Resis Gene (PCR) Not detected (Not Detect) blaVIM Car Res Gene PCR Not detected (Not Detect) CTX-M Gene Resistance (PCR) Not detected (Not Detect) 06/06/23 06/06/23 Range/Units 16:43 19:09 WBC (4.5-11.0) X10^3/uL RBC (4.5-5.9) X10^6/uL Hgb (13.5-17.5) g/dL Hct (41-53) % MCV (80-100) fL MCH (26-34) PG MCHC (30-36) % RDW (11.6-14.8) % Plt Count (150-400) X10^3/uL Neut % (Auto) (50-75) % Lymph % (Auto) (25-40) % Delta % (Auto) (3-14) % Eos % (Auto) (2-4) % Baso % (Auto) (0-2) % Neut # (Auto) (1552-5703) /uL Lymph # (Auto) (0179-5467) /uL Delta # (Auto) (0-900) /uL Eos # (Auto) (0-450) /uL Baso # (Auto) (0-100) /uL PT (10.1-12.7) SECONDS INR (0.9-1.3) APTT (26-36) SECONDS Sodium 136 L (137-145) mmol/L Potassium 5.2 H (3.4-5.1) mmol/L Chloride 107 (98-107) mmol/L Carbon Dioxide 22 (22-32) mmol/L BUN 29 H (9-20) mg/dL Creatinine 2.45 H (0.66-1.25) mg/dL Estimated GFR 28 L (>60) mL/min BUN/Creatinine Ratio 11.8 (6-22) Glucose 135 H (80-110) mg/dL Lactate (0.7-2.1) mmol/L Calcium 8.3 L (8.4-10.2) mg/dL Total Bilirubin (0.2-1.3) mg/dL AST (17-59) IU/L ALT (<50) IU/L Alkaline Phosphatase (38-126) U/L Total Protein (6.3-8.2) g/dL Albumin (3.5-5.0) g/dL Globulin (1.7-4.1) g/dL Albumin/Globulin Ratio (1.0-2.8) Lipase (23-300) U/L Procalcitonin (<0.5) ng/mL Urine Color Urine Appearance Urine pH Ur Specific [place] Urine Protein Urine Glucose (UA) Urine Ketones Urine Occult Blood Urine Nitrate Urine Bilirubin Urine Urobilinogen Ur Leukocyte Esterase Urine RBC (0-5/HPF) Urine WBC (0-5/HPF) Ur Squamous Epith Cells (0-5/HPF) Amorphous Sediment Urine Bacteria (None) Urine Mucus (Negative) Ur Culture Indicated? Ur Random Sodium 83 (30-90) mmol/L Urine Creatinine 61.3 mg/dL A.calcoaceticus-baumannii cmplx PCR (Not Detect) Bacteroides fragilis (Not Detect) Melina albicans (PCR) (Not Detect) Melina auris (PCR) (Not Detect) C. glabrata (PCR) (Not Detect) C. krusei (PCR) (Not Detect) C. parapsilosis (PCR) (Not Detect) C. tropicalis (PCR) (Not Detect) C. neoform/gattii (PCR) (Not Detect) Enterobacterales (PCR) (Not Detect) E. cloacae complex PCR (Not Detect) Enterococc faecalis PCR (Not Detect) Enterococc faecium PCR (Not Detect) E. coli (PCR) (Not Detect) H. influenzae (PCR) (Not Detect) Klebsiella aerogenes (PCR) (Not Detect) Klebsiella oxytoca PCR (Not Detect) Klebsiella pneumoniae (Not Detect) List. monocytogenes PCR (Not Detect) N. meningitidis (PCR) (Not Detect) Proteus species (PCR) (Not Detect) Salmonella spp. (PCR) (Not Detect) Serratia marcescens PCR (Not Detect) Staphylococcus sp PCR (Not Detect) Staph aureus (PCR) (Not Detect) Staph epidermidis (PCR) (Not Detect) Staph lugdunensis PCR (Not Detect) S. maltophilia (PCR) (Not Detect) Streptococcus sp PCR (Not Detect) Group A Strep (PCR) (Not Detect) Strep agalactiae (PCR) (Not Detect) Strep pneumoniae (PCR) (Not Detect) P. aeruginosa (PCR) (Not Detect) blaIMP Car res Gene PCR (Not Detect) KPC-Carbap Res Gene PCR (Not Detect) blaNDM Car Res Gene PCR (Not Detect) OXA-48 Carbapenem Resis Gene (PCR) (Not Detect) blaVIM Car Res Gene PCR (Not Detect) CTX-M Gene Resistance (PCR) (Not Detect) Imaging Data Chest x-ray: Radiologist's Impression: [address] [address] XRay Report Signed Patient: Jose Francisco Akers MR#: [id number] : 1955 Acct:[id number] Age/Sex: 67 / M Date of Service: 06/06/23 Loc: ED Accession Number: [id number] ?? Procedure: XR chest 1V Ordering Provider: Samuel Burk D.O. PROCEDURE:? XR CHEST 1V ? INDICATIONS:? suspected sepsis ? TECHNIQUE:? One view of the chest was acquired.? ? COMPARISON:? Formerly [facility], CT, CT CHEST ABD PEL W CON, 12/15/2022, 17:25.? Formerly [facility], CR, XR CHEST 1V, 03/17/2023, 9:37.? Formerly [facility], CR, XR CHEST 1V, 06/20/2022, 13:21. ? FINDINGS:? This study is limited by body habitus.? ? Surgical changes and devices:? None.? ? Lungs and pleura:? An incomplete inspiratory result is noted, causing a crowded appearance to the lung markings.? No focal infiltrates are seen.? No large pneumothorax or significant pleural effusions are seen. ? ? Mediastinum:? Mediastinal contours appear normal.? Heart size is at the upper limits of normal.? ? Bones and chest wall:? No suspicious bony lesions.? Overlying soft tissues appear unremarkable.? ? ? IMPRESSION:? Low lung volumes, without myles focal infiltrates. ? ? Dictated by: Cristofer Morales M.D. on 06/06/2023 at 13:30 ? ? Approved by: Cristofer Morales M.D. on 06/06/2023 at 13:31?? CT scan - abdomen/pelvis: Radiologist's Impression: Close Abdomen/Pelvis CT (Signed) Cristofer Morales - 06/06/23 Chest X-Ray (Signed) Cristofer Morales - 06/06/23 Chest X-Ray (Signed) Derrick Jim - 03/17/23 Chest/Abdomen/Pelvis CT (Signed) Hamilton Jackman - 12/15/22 Abdomen/Pelvis CT (Signed) Dale Murphy - 06/20/22 Chest X-Ray (Signed) Dale Murphy - 06/20/22 DI Result CC 06/13/22 DI Result CC 06/13/22 Abdomen/Pelvis CT (Signed) Allen Muñoz - 01/10/22 Abdomen Ultrasound (Signed) Abdi Bhatia - 01/10/22 Abdomen X-Ray (Signed) Ania Almeida - 03/12/20 Launch?Image [address] [address] [address] Scan Report Signed Patient: Jose Francisco Akers MR#: [id number] : 1955 Acct:[id number] Age/Sex: 67 / M Date of Service: 06/06/23 Loc: ED Accession Number: [id number] ?? Procedure: CT kidney ureter bladder (KUB) Ordering Provider: Samuel Burk D.O. PROCEDURE:? CT KIDNEY URETER BLADDER (KUB) ? INDICATIONS:? obstructive uropathy? ? TECHNIQUE:? Axial sections were acquired from the lung bases to the pubic symphysis.? Coronal and sagittal reformats were performed.? For radiation dose reduction, the following was used: ?automated exposure control, adjustment of mA and/or kV according to patient size.? ? COMPARISON:? Formerly [facility], CT, CT CHEST ABD PEL W CON, 12/15/2022, 17:25.? Formerly [facility], CT, CT ABDOMEN PELVIS W CON, 06/20/2022, 14:34.? Former[facility], CR, XR CHEST 1V, 06/06/2023, 13:39. ? FINDINGS:? Image quality:? Excellent.? ? Lung bases:? Unremarkable.? ? Heart:? There is moderate coronary artery calcification. ? URINARY: Right Kidney:? No nonobstructing right-sided kidney stones are seen.? There is moderate right-sided hydro nephrosis.? Right Ureter:? Moderate right-sided hydroureter.? ? Left Kidney:? Nonobstructing left-sided kidney stones are seen, with the largest measuring 8 mm and 625 Hounsfield units.? There is moderate left-sided hydronephrosis.? Left Ureter:? There is moderate left-sided hydroureter? ? Bladder:? Moderate stable generalized bladder wall thickening can be seen.? No stones.? ABDOMEN: Liver:? An enlarged, fatty infiltrated liver can be seen.? No focal liver lesion is seen to the limits of this noncontrast study. Gallbladder:? Unremarkable.? ? Biliary ducts:? Unremarkable.? ? Pancreas:? Unremarkable.? ? Spleen:? There is splenomegaly, with the spleen measuring 18.6 cm AP.? Adrenal Glands:? Unremarkable.? ? ? Stomach and Bowel:? Stomach, small bowel loops, and colon are unremarkable.? Colonic diverticulosis is seen, without findings of active diverticulitis. Peritoneum:? No abnormal intraperitoneal fluid.? No free air.? ? Ventral Wall: ? No hernia.? Abdominal Nodes:? No enlarged retroperitoneal or mesenteric lymph nodes.? Vessels:? Aorta and inferior vena cava are normal in size.? ? PELVIS: Pelvic Organs:? Unremarkable.? ? Pelvic Nodes: Unremarkable. Miscellaneous: No inguinal hernias are seen. ? ? ? Bones:? Generalized degenerative changes are seen. ? IMPRESSION:? No obstructing stones are seen. ? Moderate bilateral hydroureter and hydronephrosis can be seen, without a cause identified. ? Nonobstructing left-sided kidney stones are seen. ? Moderate stable generalized bladder wall thickening.? Please correlate with UTI versus bladder outlet obstruction. ? ? ? Additional findings:? Moderate coronary artery calcification Enlarged, fatty liver. Splenomegaly. Diverticulosis, without active diverticulitis ? Dictated by: Cristofer Morales M.D. on 06/06/2023 at 15:43 ? ? Approved by: Cristofer Morales M.D. on 06/06/2023 at 15:48?? MDM Narrative Medical decision making narrative: Alis 06/06/23: Patient signed out to myself by Dr. Burk. Patient seen and evaluated independently by myself. Patient's seated in recliner by the bed. Patient states he has had trouble urinating constantly for some time but he would out to large clots he was feeling like he was retaining prior to this that seemed to help his urination somewhat but he still had some intermittent issues but has been urinating in the department. He states he had fevers up to 101 F on and off for the past week he is had no other cough cold or congestive symptoms. No nausea or vomiting. He has had bilateral flank pain with typical but persistent urinary issues and then new hematuria starting last night. Patient appeared of hypoxia, patient states that when he is under the weather he will often have decreased reserve. He states he was diagnosed with restrictive lung disease/hypoventilation by pulmonology and was on oxygen for approximately a year at that time. He has since been weaned off and does not use it regularly but was using it with his CPAP at night. Pulmonology note was also reviewed and patient was diagnosed with hypoventilation syndrome secondary to obesity according to their note from 2016. Patient states when he gets sick he tends to drop his oxygen level. Patient states he is noted that he has been more fatigued general he denies any chest pain. He has had some increased shortness of breath. He denies any cough cold congestion symptoms. Most of his symptoms he no in the pelvic area. Denies new swelling in extremities. Patient received in sign-out labs and imaging were reviewed patient's blood pressures been trending down words, heart rate has improved over time but still tachycardic, he received a L of fluids, Rocephin and 4 mg of Zofran. Patient's labs show an elevation in his creatinine, he is also noted to have a hemoglobin of 8.2 appears to be 10 as of March 2023 and has a white count of 11 with a leftward shift. Platelets are 119. Coags show an INR 1.4 with a PTT of 30. Patient's sodium is 136 potassium is 5.2 creatinine 2.45 was repeated after a L of fluids is essentially the same BUN is 29, patient's bilirubin was 1.9 was otherwise normal LFTs and positive procalcitonin. Urine was positive for infection with 5-10 RBCs, white cells greater than 100, many bacteria, patient's FENA was calculated 2.5% most consistent with intrinsic disease although patient does have infection, and has sounds like intermittent urinary retention. 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 Spoke with urology, Dr. Hernandez: Discussed patient's findings, acute kidney injury suspected urosepsis. Dr. Hernandez did note that urine maybe contaminated secondary to pannus and body habitus. Would recommend to continue with broad-spectrum antibiotics. We did discuss his services maybe required if staff has difficulty with catheterization and will be contacted as needed. Dr. Hernandez also recommended to DC the oxybutynin and either continue doxazosin or Flomax as an alternative. Spoke with hospitalist: Dr. Rowan: Discussed findings with patient I do believe that septic, we are doing additional fluids as he has not had full fluid resuscitation but may continue to worsen. Discussed recommendations from Dr. Hernandez with Urology for overnight including to stop oxybutynin, can continue doxazosin or Flomax as an alternative if preferred.. At this time patient is urinating will also but can straight cath as needed and if needed they will call Urology for catheter placement. Agrees with plan for Rocephin, agrees with plan for additional fluids. Discharge Plan Departure Patient Disposition: Admitted As Inpatient Clinical Impression: Acute kidney injury, Acute UTI Sepsis Qualifiers: Sepsis type: sepsis due to unspecified organism Sepsis acute organ dysfunction status: without acute organ dysfunction Qualified Code(s): A41.9 - Sepsis, unspecified organism Admit Date/Time: 06/06/23 20:24 Admit Provider: Sushil Rowan
--- NOTE | 2023-06-06 15:44 | DI.CT.S_ITS ---
PROCEDURE: CT KIDNEY URETER BLADDER (KUB) INDICATIONS: obstructive uropathy? TECHNIQUE: Axial sections were acquired from the lung bases to the pubic symphysis. Coronal and sagittal reformats were performed. For radiation dose reduction, the following was used: automated exposure control, adjustment of mA and/or kV according to patient size. COMPARISON: [facility], CT, CT CHEST ABD PEL W CON, 12/15/2022, 17:25. [facility], CT, CT ABDOMEN PELVIS W CON, 06/20/2022, 14:34. [facility], CR, XR CHEST 1V, 06/06/2023, 13:39. FINDINGS: Image quality: Excellent. Lung bases: Unremarkable. Heart: There is moderate coronary artery calcification. URINARY: Right Kidney: No nonobstructing right-sided kidney stones are seen. There is moderate right-sided hydro nephrosis. Right Ureter: Moderate right-sided hydroureter. Left Kidney: Nonobstructing left-sided kidney stones are seen, with the largest measuring 8 mm and 625 Hounsfield units. There is moderate left-sided hydronephrosis. Left Ureter: There is moderate left-sided hydroureter Bladder: Moderate stable generalized bladder wall thickening can be seen. No stones. ABDOMEN: Liver: An enlarged, fatty infiltrated liver can be seen. No focal liver lesion is seen to the limits of this noncontrast study. Gallbladder: Unremarkable. Biliary ducts: Unremarkable. Pancreas: Unremarkable. Spleen: There is splenomegaly, with the spleen measuring 18.6 cm AP. Adrenal Glands: Unremarkable. Stomach and Bowel: Stomach, small bowel loops, and colon are unremarkable. Colonic diverticulosis is seen, without findings of active diverticulitis. Peritoneum: No abnormal intraperitoneal fluid. No free air. Ventral Wall: No hernia. Abdominal Nodes: No enlarged retroperitoneal or mesenteric lymph nodes. Vessels: Aorta and inferior vena cava are normal in size. PELVIS: Pelvic Organs: Unremarkable. Pelvic Nodes: Unremarkable. Miscellaneous: No inguinal hernias are seen. Bones: Generalized degenerative changes are seen. IMPRESSION: No obstructing stones are seen. Moderate bilateral hydroureter and hydronephrosis can be seen, without a cause identified. Nonobstructing left-sided kidney stones are seen. Moderate stable generalized bladder wall thickening. Please correlate with UTI versus bladder outlet obstruction. Additional findings: Moderate coronary artery calcification Enlarged, fatty liver. Splenomegaly. Diverticulosis, without active diverticulitis Dictated by: Cristofer Morales M.D. on 06/06/2023 at 15:43 Approved by: Cristofer Morales M.D. on 06/06/2023 at 15:48
[2023-06-06] MEDS: cefTRIAXone 2,000 MG in SODIUM CHLORIDE 0.9% 100 ML 200 MG IV (16:33)
[2023-06-06 17:20] LABS: Creatinine Urine Random 61.3 mg/dL; Sodium Urine Random 83 mmol/L (30-90)
[2023-06-06 19:27] LABS: BUN Creatinine Ratio 11.8 (6-22); Blood Urea Nitrogen 29 mg/dL (9-20); Calcium 8.3 mg/dL (8.4-10.2); Carbon Dioxide 22 mmol/L (22-32); Chloride 107 mmol/L (98-107); Estimated Glomerular Filt Rate 28 mL/min (>60); Glucose 135 mg/dL (80-110); HEMOLYSIS < 15 (0-50); Potassium 5.2 mmol/L (3.4-5.1); Sodium 136 mmol/L (137-145)
[2023-06-06 22:54] LABS: MRSA (Nasal) PCR Not Detected (Not Detect)
--- NOTE | 2023-06-06 23:17 | P.HP_ITS ---
History of Present Illness History of Present Illness Chief complaint: states bladder infection/trouble urinating Narrative: 67-year-old male with history of prostate cancer with previous radiation in 2017 presents today with intermittent fevers, generally feeling unwell.? He states that last night he had blood in his urine and the passage of the occasional clots but has been unable to urinate since about 5:00 a.m. He denies runny nose, sore throat or cough.? He is no chest pain or shortness of breath.? He denies any upper abdominal pain but does have some suprapubic fullness.? He states that he has what his urologist have described as ?disappearing penis?.? He had been sent to urology and [place] previously and there was difficulty performing cystoscopy, he was eventually referred to the [facility] and was told that there was not a surgical intervention that could be performed due to his lung condition.? He historically has difficulty urinating but usually able to produce a urine stream.? [facility] Medical History Anemia of chronic disease Chronic venous insufficiency (04/10/16) Eczema (~1996) Frequent UTI (~2017) 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 History of kidney stones History of prostate cancer (~2016) Iron deficiency Lower urinary tract symptoms Mixed hyperlipidemia Morbid obesity (08/16/15) Obstructive sleep apnea of adult (~2013) Pancreatitis (~1995) Phimosis Polyneuropathy, unspecified Primary insomnia (08/16/15) Recurrent sinusitis (~2007) Restless leg syndrome (~2013) Restrictive lung disease (08/16/15) Tinnitus (~1972) Urinary incontinence Surgical History Anesthesia History of common bile duct surgery (~1997) Status post knee surgery (~1993) Family History Brother Prostate cancer Liver cancer Father Parkinson disease Grandfather Hepatitis Grandfather History of heart disease Grandmother Cancer Social History household members: family Smoking Status: Never smoker alcohol intake: current Meds Home Medications and Allergies Home Medications Medication Instructions Recorded Confirmed Type doxazosin 8 mg tablet 8 mg PO BEDTIME 06/26/20 06/06/23 History oxybutynin chloride 5 mg 5 mg PO BEDTIME 06/26/20 06/06/23 History tablet,extended release 24 hr ropinirole 2 mg tablet 2 mg PO BEDTIME 06/26/20 06/06/23 History trazodone 50 mg tablet 50 mg PO BEDTIME 06/26/20 06/06/23 History ferrous sulfate 325 mg (65 mg 325 mg PO DAILY 09/25/22 06/06/23 History iron) tablet food supplemt, lactose-reduced 1 ea PO QID #28,440 mL 02/12/23 06/06/23 Rx (Ensure Original oral liquid) aspirin 81 mg tablet 81 mg PO DAILY 03/17/23 06/06/23 History furosemide 20 mg tablet 20 mg PO BID #180 tabs 05/15/23 06/06/23 Rx potassium chloride 10 mEq 10 meq PO DAILY #90 tabs 05/15/23 06/06/23 Rx tablet,extended release doxazosin 8 mg tablet 8 mg PO ONCE PM 06/06/23 06/06/23 History Allergies Allergy/AdvReac Type Severity Reaction Status Date / Time No Known Drug Allergies Allergy Verified 06/06/23 12:39 Review of Systems Constitutional Constitutional: Reports as per HPI and Reports system reviewed and no additional complaints, except as documented Eyes Eyes: Reports as per HPI and Reports system reviewed and no additional complaints, except as documented ENT Ears, Nose, Mouth, and Throat: Yes as per HPI, Yes system reviewed and no additional complaints, except as documented, No dysphagia, No neck pain and No odynophagia Cardiovascular Cardiovascular: Reports system reviewed and no additional complaints, except as documented Respiratory Respiratory: Reports system reviewed and no additional complaints, except as documented Gastrointestinal Gastrointestinal: Denies as per HPI, Reports system reviewed and no additional complaints, except as documented, Denies abdominal pain, Denies belching, Denies melena, Denies bloating, Denies hematochezia, Denies change in bowel habits, Denies tenesmus, Denies change in stool character, Denies coffee ground emesis, Denies constipation, Denies cramping, Denies dysphagia, Denies excessive flatus, Denies heartburn, Denies loose stools, Denies nausea, Denies odynophagia, Denies vomiting, Denies hematemesis and Reports other Musculoskeletal Musculoskeletal: Denies as per HPI, Denies system reviewed and no additional complaints, except as documented, Denies abnormal gait, Denies back pain, Denies myalgias, Denies arthralgias, Denies joint swelling, Denies muscle cramps, Denies muscle weakness, Denies neck pain, Denies numbness and Denies radiating pain into limb Neurologic Neurologic: Denies abnormal gait, Denies confusion and Denies numbness Psychiatric Psychiatric: Denies as per HPI, Reports system reviewed and no additional complaints, except as documented, Denies abnormal sleep pattern, Denies anxiety, Denies change in appetite, Denies confusion, Denies depression and Denies auditory hallucinations Exam Vital Signs (past 8 hours): - 06/06/23 16:00 06/06/23 17:00 06/06/23 18:00 Pulse Rate 102 H 103 H 97 H Respiratory Rate Blood Pressure 103/55 L 105/53 L 96/54 L Pulse Oximetry 93 94 97 Oxygen Delivery Method Room Air Room Air Oxygen Flow Rate 06/06/23 20:00 06/06/23 19:00 06/06/23 20:49 Pulse Rate 86 99 H 89 Respiratory Rate 20 Blood Pressure 100/50 L 96/50 L Pulse Oximetry 93 96 95 Oxygen Delivery Method Room Air Nasal Cannula Nasal Cannula Oxygen Flow Rate 1 1 06/06/23 20:00 06/06/23 20:48 Pulse Rate 95 H Respiratory Rate 20 Blood Pressure Pulse Oximetry 88 L Oxygen Delivery Method Room Air Oxygen Flow Rate Oxygen Delivery Method Nasal Cannula Oxygen Flow Rate 1 Const General: cooperative, comfortable and well developed Orientation: alert and oriented x3 HENMT Head: normal to inspection and atraumatic Face and sinus: normal facial exam Mouth: oral mucosae normal and moist mucous membranes Throat: posterior oropharynx normal Eyes General: appearance normal, both eyes and all related structures Pupils: PERRL EOM: EOM intact bilaterally Neck Neck: normal visual inspection and full ROM Chest Chest: normal inspection of the chest Resp Effort & Inspection: normal respiratory effort and able to speak in complete sentences Auscultation: clear to auscultation bilaterally Cardio Palpation: normal PMI Rate: regular rate Rhythm: regular rhythm Heart Sounds: S1 normal and S2 normal GI Inspection: normal to inspection Palpation: soft and no hepatosplenomegaly Auscultation: normal bowel sounds Skin General: no rashes or lesions noted Neuro General: patient alert, patient awake, patient oriented x3 and no focal motor deficits Cognition: normal cognition Motor: muscle tone normal throughout Sensory Exam: no sensory deficits noted Extrem General: full ROM and no calf tenderness Psych Appearance: grossly normal Mental Status: mental status grossly normal Speech and Movement: speech and movement normal Objective Labs 06/06/23 12:53 06/06/23 19:09 Labs: Laboratory Results - last 24 hr 06/06/23 06/06/23 06/06/23 12:53 12:53 12:53 WBC 11.4 H RBC 2.71 L Hgb 8.2 L Hct 25.0 L MCV 92.6 MCH 30.2 MCHC 32.6 RDW 19.7 H Plt Count 119 L Neut % (Auto) 92.5 H Lymph % (Auto) 2.2 L [place] % (Auto) 4.4 Eos % (Auto) 0.5 L Baso % (Auto) 0.4 Neut # (Auto) 79573 H Lymph # (Auto) 300 L [place] # (Auto) 500 Eos # (Auto) 100 Baso # (Auto) 0 PT 15.8 H INR 1.4 H APTT 30 Sodium 135 L Potassium 4.3 Chloride 104 Carbon Dioxide 22 BUN 26 H Creatinine 2.42 H Estimated GFR 28 L BUN/Creatinine Ratio 10.7 Glucose 140 H Lactate Calcium 9.3 Total Bilirubin 1.9 H AST 44 ALT 43 Alkaline Phosphatase 168 H Total Protein 7.9 Albumin 3.4 L Globulin 4.5 H Albumin/Globulin Ratio 0.8 L Lipase 122 Procalcitonin 0.57 H Urine Color Urine Appearance Urine pH Ur Specific [place] Urine Protein Urine Glucose (UA) Urine Ketones Urine Occult Blood Urine Nitrate Urine Bilirubin Urine Urobilinogen Ur Leukocyte Esterase Urine RBC Urine WBC Ur Squamous Epith Cells Amorphous Sediment Urine Bacteria Urine Mucus Ur Culture Indicated? Ur Random Sodium Urine Creatinine Nasal Screen MRSA (PCR) 06/06/23 06/06/23 06/06/23 12:53 13:31 16:43 WBC RBC Hgb Hct MCV MCH MCHC RDW Plt Count Neut % (Auto) Lymph % (Auto) [place] % (Auto) Eos % (Auto) Baso % (Auto) Neut # (Auto) Lymph # (Auto) [place] # (Auto) Eos # (Auto) Baso # (Auto) PT INR APTT Sodium Potassium Chloride Carbon Dioxide BUN Creatinine Estimated GFR BUN/Creatinine Ratio Glucose Lactate 1.7 Calcium Total Bilirubin AST ALT Alkaline Phosphatase Total Protein Albumin Globulin Albumin/Globulin Ratio Lipase Procalcitonin Urine Color Red Urine Appearance Turbid Urine pH TNP Ur Specific [place] TNP Urine Protein TNP Urine Glucose (UA) TNP Urine Ketones TNP Urine Occult Blood TNP Urine Nitrate TNP Urine Bilirubin TNP Urine Urobilinogen TNP Ur Leukocyte Esterase TNP Urine RBC 5-10/hpf H Urine WBC >100/hpf H Ur Squamous Epith Cells None seen Amorphous Sediment 1+ Urine Bacteria Many (>30) H Urine Mucus 1+ H Ur Culture Indicated? Specimen cultured Ur Random Sodium 83 Urine Creatinine 61.3 Nasal Screen MRSA (PCR) 06/06/23 06/06/23 19:09 21:42 WBC RBC Hgb Hct MCV MCH MCHC RDW Plt Count Neut % (Auto) Lymph % (Auto) [place] % (Auto) Eos % (Auto) Baso % (Auto) Neut # (Auto) Lymph # (Auto) [place] # (Auto) Eos # (Auto) Baso # (Auto) PT INR APTT Sodium 136 L Potassium 5.2 H Chloride 107 Carbon Dioxide 22 BUN 29 H Creatinine 2.45 H Estimated GFR 28 L BUN/Creatinine Ratio 11.8 Glucose 135 H Lactate Calcium 8.3 L Total Bilirubin AST ALT Alkaline Phosphatase Total Protein Albumin Globulin Albumin/Globulin Ratio Lipase Procalcitonin Urine Color Urine Appearance Urine pH Ur Specific [place] Urine Protein Urine Glucose (UA) Urine Ketones Urine Occult Blood Urine Nitrate Urine Bilirubin Urine Urobilinogen Ur Leukocyte Esterase Urine RBC Urine WBC Ur Squamous Epith Cells Amorphous Sediment Urine Bacteria Urine Mucus Ur Culture Indicated? Ur Random Sodium Urine Creatinine Nasal Screen MRSA (PCR) Not detected Assessment & Plan Assessment and plan (1) Acute kidney injury: Problem details: Presented with creatinine 2.4, baseline between 0.7-0.9. Most likely post-renal. Status: Acute Plan: -continue with IV fluid hydration. -hold diuretics and potassium -monitor UOP. -daily BMP -Avoid any nephrotoxic agents, including NSAIDs -Continue to monitor BP. Avoid drastic lowering of blood pressure in order to maintain a good renal perfusion -Dose all medications according pt's current eGFR -Urology consult -Straight catheters as needed for bladder scan over 350 cc (2) Acute UTI: Status: Acute Plan: -Blood culture, urine culture, -Antibiotics, ceftriaxone, -Monitor for urine retention, check post void residuals. (3) Sepsis: Qualifiers: Sepsis type: sepsis due to unspecified organism Sepsis acute organ dysfunction status: without acute organ dysfunction Qualified Code(s): A41.9 - Sepsis, unspecified organism Status: Acute Plan: - Start fluids and ceftriaxone -Monitor blood pressure closely (4) Hidden penis: Status: Chronic (5) Mixed hyperlipidemia: Status: Chronic (6) Obstructive sleep apnea of adult: Problem details: On BiPAP via [facility] Status: Chronic Plan: -CPAP at night as needed (7) Morbid obesity: Status: Chronic Plan: -Low-calorie diet (8) Restrictive lung disease: Status: Chronic Plan: -Oxygen supplement as needed -Albuterol as needed (9) History of prostate cancer: Problem details: Lupron and radiation therapy Status: Inactive Plan: -Follow-up with urology as outpatient Time Spent With Patient Time with patient: 50 to 69 minutes with 50% spent counseling/coordinating care Quality VTE Deep Vein Thrombosis/Pulmonary Embolism Present on Admission: No MIPS - Admit I confirm the patient?s Advance Care Plan is present, Code status is documented, Surrogate decision maker is in patient?s record [If Yes, STOP here]: Yes MIPS - Meds 'Current medications' to include all prescriptions, [id number] products, herbals, cannabis/cannabidiol products, and vitamin/mineral/dietary (nutritional) supplements. I have utilized all available resources to obtain, update, or review the patient?s current medications. [If Yes, STOP here]: Yes
[2023-06-07] VITALS (51 sets, daily range): BP systolic 114–158; BP diastolic 56–74; PULSE 67–103; RESP 4–38; TEMP 36.1–36.6; O2SAT 87–96
[2023-06-07] MEDS: ROPINIROLE 1 MG TABLET 2 MG PO ×2 (00:22→21:13)
[2023-06-07] MEDS: OXYBUTYNIN 5 MG ER TAB PO (00:23)
[2023-06-07] MEDS: FERROUS SULFATE 325 MG TABLET PO ×3 (00:23→21:12)
[2023-06-07] MEDS: TRAZODONE 50 MG TABLET PO ×2 (00:24→21:13)
[2023-06-07 03:25] LABS: CTX-M Resistance Not Detected (Not Detect); Enterococcus faecalis Not Detected (Not Detect); Enterococcus faecium Not Detected (Not Detect); IMP Resistance Not Detected (Not Detect); KPC Resistance Not Detected (Not Detect); Listeria monocytogenes Not Detected (Not Detect); NDM Resistance Not Detected (Not Detect); OXA-48-like Resistance Not Detected (Not Detect); Staphylococcus species Not Detected (Not Detect); VIM Resistance Not Detected (Not Detect)
[2023-06-07 03:26] LABS: Acinetobacter calcoa-baumannii Not Detected (Not Detect); Bacteroides fragilis Not Detected (Not Detect); Enterobacterales DETECTED (Not Detect); Staphylococcus epidermidis Not Detected (Not Detect); Staphylococcus lugdunensis Not Detected (Not Detect); Streptococcus agalactiae (Gr B Not Detected (Not Detect); Streptococcus pneumonia Not Detected (Not Detect); Streptococcus pyogenes (Gr A) Not Detected (Not Detect); Streptococcus species Not Detected (Not Detect)
[2023-06-07 03:27] LABS: Candida albicans Not Detected (Not Detect); Candida auris Not Detected (Not Detect); Candida glabrata Not Detected (Not Detect); Candida krusei Not Detected (Not Detect); Candida parapsilosis Not Detected (Not Detect); Candida tropicalis Not Detected (Not Detect); Cryptococcus neoformans/gatti Not Detected (Not Detect); Enterobacter cloacae complex Not Detected (Not Detect); Haemophilus influenzae Not Detected (Not Detect); Klebsiella aerogenes Not Detected (Not Detect); Neisseria meningitidis Not Detected (Not Detect); Proteus species Not Detected (Not Detect); Pseudomonas aeruginosa Not Detected (Not Detect); Salmonella species Not Detected (Not Detect); Serratia marcescens Not Detected (Not Detect); Stenotrophomonas maltophilia Not Detected (Not Detect)
[2023-06-07 04:56] LABS: Alanine Aminotransferase 48 IU/L (<50); Albumin 3.2 g/dL (3.5-5.0); Albumin Globulin Ratio 0.7 (1.0-2.8); Alkaline Phosphatase 140 U/L (38-126); Aspartate Aminotransferase 43 IU/L (17-59); BUN Creatinine Ratio 11.5 (6-22); Bilirubin Total 3.2 mg/dL (0.2-1.3); Blood Urea Nitrogen 32 mg/dL (9-20); Calcium 8.2 mg/dL (8.4-10.2); Carbon Dioxide 21 mmol/L (22-32); Chloride 105 mmol/L (98-107); Estimated Glomerular Filt Rate 24 mL/min (>60); Globulin 4.4 g/dL (1.7-4.1); Glucose 126 mg/dL (80-110); HEMOLYSIS < 15 (0-50); Potassium 5.1 mmol/L (3.4-5.1); Sodium 136 mmol/L (137-145); Total Protein 7.6 g/dL (6.3-8.2)
[2023-06-07] MEDS: ASPIRIN EC 81 MG TABLET PO (08:12)
[2023-06-07 08:13] LABS: Magnesium 2.3 mg/dL (1.6-2.3)
[2023-06-07 08:15] LABS: Basophils Absolute Auto 100 /uL (0-100); Basophils Percent Auto 0.6 % (0-2); Eosinophils Absolute Auto 200 /uL (0-450); Eosinophils Percent Auto 1.4 % (2-4); Hematocrit 22.5 % (41-53); Hemoglobin 7.2 g/dL (13.5-17.5); Lymphocytes Absolute Auto 600 /uL (1100-4500); Mean Corpuscular HGB Conc 32.2 % (30-36); Mean Corpuscular Hemoglobin 30.2 PG (26-34); Mean Corpuscular Volume 93.9 fL (80-100); Monocytes Absolute Auto 800 /uL (0-900); Monocytes Percent Auto 6.9 % (3-14); Neutrophils Absolute Auto 10400 /uL (1500-7000); Neutrophils Percent Auto 86.1 % (50-75); Platelet Count 126 X10^3/uL (150-400); Red Blood Cell Count 2.39 X10^6/uL (4.5-5.9); Red Cell Distribution Width 20.5 % (11.6-14.8); White Blood Cell Count 12.1 X10^3/uL (4.5-11.0)
[2023-06-07 08:16] LABS: Add Manual Diff / Slide Review SLIDE REVIEW
[2023-06-07 09:04] LABS: Anisocytosis 3+
--- NOTE | 2023-06-07 10:08 | P.PN_ITS ---
Subjective Subjective Date Patient Seen: 06/07/23 Time Patient Seen: 10:08 Interval history: 67-year-old morbidly obese male well known to me inadvertently admitted to the hospitalist service overnight with a UTI acute kidney injury and perhaps sepsis He was somewhat tachycardic upon presentation although he is tachycardic at baseline. But blood pressure has been stable. Does have a bump in his creatinine and he presented with symptoms of a UTI Subsequently he is growing Enterobacter from his blood cultures. He is more anemic than usual currently. His renal functions actually somewhat worse this morning. Unable to have Montoya catheter placed by nursing staff. Patient does have a complicated urologic anatomy with ?hidden penis?. Not felt to be a candidate for any sort of intervention per Urology in [place], at [facility] in [place], and at the [facility], all felt he was too high risk for any intervention given his comorbidities his morbid obesity etcetera. Also has a history of prostate cancer. Part of his evaluation demonstrates bilateral hydronephrosis without evidence of obstruction thus probably obstruction at the bladder level (although no distended bladder was noted on imaging) or more distal (i.e. prostate etcetera). He is had multiple attempts at cystoscopy that have failed by various urologists apparently. This morning he tells me that he has been up to the bathroom several times. Per patient and nursing staff he is voiding several 100 cc at a time. He does not feel the intense pressure to empty his bladder that he was feeling over the last several days. Feels like he is much more able to easily empty his bladder. Also tells me he was seen within the last 3 weeks or so by Urology over at [facility] and had a urine culture done and was placed on 7 days of amoxicillin. He says at that point he also had a postvoid residual checked and tells me he had 13 cc in his bladder at that point. Therefore he thinks he is emptying his bladder completely. Patient is sitting up in his bedside chair. Looking for something to eat. He has been made NPO in case of need for procedure today. Exam Vital Signs (past 8 hours): - 06/07/23 03:00 06/07/23 03:00 06/07/23 03:12 Temperature Pulse Rate 79 77 Respiratory Rate 21 22 Blood Pressure 133/71 Pulse Oximetry 92 92 Oxygen Delivery Method Oxygen Flow Rate 06/07/23 02:15 06/07/23 02:30 06/07/23 02:45 Temperature Pulse Rate 83 86 79 Respiratory Rate 22 7 L 26 H Blood Pressure Pulse Oximetry 89 L 93 93 Oxygen Delivery Method Oxygen Flow Rate 06/07/23 03:15 06/07/23 03:30 06/07/23 03:45 Temperature Pulse Rate 76 77 75 Respiratory Rate 22 22 22 Blood Pressure Pulse Oximetry 91 92 91 Oxygen Delivery Method Oxygen Flow Rate 06/07/23 04:00 06/07/23 04:00 06/07/23 04:08 Temperature 97.0 F L Pulse Rate 80 79 Respiratory Rate 23 23 Blood Pressure 132/71 Pulse Oximetry 94 96 Oxygen Delivery Method Oxygen Flow Rate 06/07/23 05:00 06/07/23 05:00 06/07/23 05:28 Temperature Pulse Rate 79 79 Respiratory Rate 25 H 25 H Blood Pressure 114/56 L Pulse Oximetry 95 93 Oxygen Delivery Method Oxygen Flow Rate 06/07/23 06:14 06/07/23 04:15 06/07/23 04:30 Temperature Pulse Rate 67 79 80 Respiratory Rate 21 25 H 26 H Blood Pressure 126/69 Pulse Oximetry 93 95 95 Oxygen Delivery Method Oxygen Flow Rate 06/07/23 04:45 06/07/23 05:15 06/07/23 05:30 Temperature Pulse Rate 80 79 73 Respiratory Rate 26 H 29 H 22 Blood Pressure Pulse Oximetry 95 96 92 Oxygen Delivery Method Oxygen Flow Rate 06/07/23 05:45 06/07/23 06:00 06/07/23 06:00 Temperature Pulse Rate 74 72 Respiratory Rate 20 22 Blood Pressure 126/69 Pulse Oximetry 91 91 Oxygen Delivery Method Oxygen Flow Rate 06/07/23 06:15 06/07/23 06:30 06/07/23 07:00 Temperature Pulse Rate 79 78 Respiratory Rate 24 26 H Blood Pressure 158/74 H Pulse Oximetry 94 95 Oxygen Delivery Method Oxygen Flow Rate 06/07/23 07:00 06/07/23 07:30 06/07/23 08:00 Temperature Pulse Rate 98 H 92 H 100 H Respiratory Rate 38 H 37 H 30 H Blood Pressure Pulse Oximetry 95 96 96 Oxygen Delivery Method Oxygen Flow Rate 06/07/23 08:01 06/07/23 08:01 06/07/23 07:00 Temperature 98 F Pulse Rate 103 H Respiratory Rate 37 H Blood Pressure 136/60 Pulse Oximetry 96 Oxygen Delivery Method Nasal Cannula Oxygen Flow Rate 06/07/23 08:30 06/07/23 09:00 06/07/23 09:00 Temperature Pulse Rate 94 H 93 H Respiratory Rate 26 H 31 H Blood Pressure 137/74 Pulse Oximetry 96 Oxygen Delivery Method Oxygen Flow Rate 06/07/23 09:47 Temperature Pulse Rate Respiratory Rate Blood Pressure Pulse Oximetry 96 Oxygen Delivery Method Nasal Cannula Oxygen Flow Rate 1 Oxygen Delivery Method Nasal Cannula Oxygen Flow Rate 1 Objective Labs 06/07/23 04:06 06/07/23 04:06 Labs: Laboratory Results - last 24 hr 06/06/23 06/06/23 06/06/23 12:53 12:53 12:53 WBC 11.4 H RBC 2.71 L Hgb 8.2 L Hct 25.0 L MCV 92.6 MCH 30.2 MCHC 32.6 RDW 19.7 H Plt Count 119 L Neut % (Auto) 92.5 H Lymph % (Auto) 2.2 L [place] % (Auto) 4.4 Eos % (Auto) 0.5 L Baso % (Auto) 0.4 Neut # (Auto) 80106 H Lymph # (Auto) 300 L [place] # (Auto) 500 Eos # (Auto) 100 Baso # (Auto) 0 RBC Morphology Anisocytosis PT 15.8 H INR 1.4 H APTT 30 Sodium 135 L Potassium 4.3 Chloride 104 Carbon Dioxide 22 BUN 26 H Creatinine 2.42 H Estimated GFR 28 L BUN/Creatinine Ratio 10.7 Glucose 140 H Lactate Calcium 9.3 Magnesium Total Bilirubin 1.9 H AST 44 ALT 43 Alkaline Phosphatase 168 H Total Protein 7.9 Albumin 3.4 L Globulin 4.5 H Albumin/Globulin Ratio 0.8 L Lipase 122 Procalcitonin 0.57 H Urine Color Urine Appearance Urine pH Ur Specific [place] Urine Protein Urine Glucose (UA) Urine Ketones Urine Occult Blood Urine Nitrate Urine Bilirubin Urine Urobilinogen Ur Leukocyte Esterase Urine RBC Urine WBC Ur Squamous Epith Cells Amorphous Sediment Urine Bacteria Urine Mucus Ur Culture Indicated? Ur Random Sodium Urine Creatinine Nasal Screen MRSA (PCR) A.calcoaceticus-baumannii cmplx PCR Bacteroides fragilis Melina albicans (PCR) Melina auris (PCR) C. glabrata (PCR) C. krusei (PCR) C. parapsilosis (PCR) C. tropicalis (PCR) C. neoform/gattii (PCR) Enterobacterales (PCR) E. cloacae complex PCR Enterococc faecalis PCR Enterococc faecium PCR E. coli (PCR) H. influenzae (PCR) Klebsiella aerogenes (PCR) Klebsiella oxytoca PCR Klebsiella pneumoniae List. monocytogenes PCR N. meningitidis (PCR) Proteus species (PCR) Salmonella spp. (PCR) Serratia marcescens PCR Staphylococcus sp PCR Staph aureus (PCR) Staph epidermidis (PCR) Staph lugdunensis PCR S. maltophilia (PCR) Streptococcus sp PCR Group A Strep (PCR) Strep agalactiae (PCR) Strep pneumoniae (PCR) P. aeruginosa (PCR) blaIMP Car res Gene PCR KPC-Carbap Res Gene PCR blaNDM Car Res Gene PCR OXA-48 Carbapenem Resis Gene (PCR) blaVIM Car Res Gene PCR CTX-M Gene Resistance (PCR) 06/06/23 06/06/23 06/06/23 12:53 12:53 13:31 WBC RBC Hgb Hct MCV MCH MCHC RDW Plt Count Neut % (Auto) Lymph % (Auto) [place] % (Auto) Eos % (Auto) Baso % (Auto) Neut # (Auto) Lymph # (Auto) [place] # (Auto) Eos # (Auto) Baso # (Auto) RBC Morphology Anisocytosis PT INR APTT Sodium Potassium Chloride Carbon Dioxide BUN Creatinine Estimated GFR BUN/Creatinine Ratio Glucose Lactate 1.7 Calcium Magnesium Total Bilirubin AST ALT Alkaline Phosphatase Total Protein Albumin Globulin Albumin/Globulin Ratio Lipase Procalcitonin Urine Color Red Urine Appearance Turbid Urine pH TNP Ur Specific [place] TNP Urine Protein TNP Urine Glucose (UA) TNP Urine Ketones TNP Urine Occult Blood TNP Urine Nitrate TNP Urine Bilirubin TNP Urine Urobilinogen TNP Ur Leukocyte Esterase TNP Urine RBC 5-10/hpf H Urine WBC >100/hpf H Ur Squamous Epith Cells None seen Amorphous Sediment 1+ Urine Bacteria Many (>30) H Urine Mucus 1+ H Ur Culture Indicated? Specimen cultured Ur Random Sodium Urine Creatinine Nasal Screen MRSA (PCR) A.calcoaceticus-baumannii cmplx PCR Not detected Bacteroides fragilis Not detected Melina albicans (PCR) Not detected Melina auris (PCR) Not detected C. glabrata (PCR) Not detected C. krusei (PCR) Not detected C. parapsilosis (PCR) Not detected C. tropicalis (PCR) Not detected C. neoform/gattii (PCR) Not detected Enterobacterales (PCR) Detected H E. cloacae complex PCR Not detected Enterococc faecalis PCR Not detected Enterococc faecium PCR Not detected E. coli (PCR) Not detected H. influenzae (PCR) Not detected Klebsiella aerogenes (PCR) Not detected Klebsiella oxytoca PCR Not detected Klebsiella pneumoniae Not detected List. monocytogenes PCR Not detected N. meningitidis (PCR) Not detected Proteus species (PCR) Not detected Salmonella spp. (PCR) Not detected Serratia marcescens PCR Not detected Staphylococcus sp PCR Not detected Staph aureus (PCR) Not detected Staph epidermidis (PCR) Not detected Staph lugdunensis PCR Not detected S. maltophilia (PCR) Not detected Streptococcus sp PCR Not detected Group A Strep (PCR) Not detected Strep agalactiae (PCR) Not detected Strep pneumoniae (PCR) Not detected P. aeruginosa (PCR) Not detected blaIMP Car res Gene PCR Not detected KPC-Carbap Res Gene PCR Not detected blaNDM Car Res Gene PCR Not detected OXA-48 Carbapenem Resis Gene (PCR) Not detected blaVIM Car Res Gene PCR Not detected CTX-M Gene Resistance (PCR) Not detected 06/06/23 06/06/23 06/06/23 16:43 19:09 21:42 WBC RBC Hgb Hct MCV MCH MCHC RDW Plt Count Neut % (Auto) Lymph % (Auto) [place] % (Auto) Eos % (Auto) Baso % (Auto) Neut # (Auto) Lymph # (Auto) [place] # (Auto) Eos # (Auto) Baso # (Auto) RBC Morphology Anisocytosis PT INR APTT Sodium 136 L Potassium 5.2 H Chloride 107 Carbon Dioxide 22 BUN 29 H Creatinine 2.45 H Estimated GFR 28 L BUN/Creatinine Ratio 11.8 Glucose 135 H Lactate Calcium 8.3 L Magnesium Total Bilirubin AST ALT Alkaline Phosphatase Total Protein Albumin Globulin Albumin/Globulin Ratio Lipase Procalcitonin Urine Color Urine Appearance Urine pH Ur Specific [place] Urine Protein Urine Glucose (UA) Urine Ketones Urine Occult Blood Urine Nitrate Urine Bilirubin Urine Urobilinogen Ur Leukocyte Esterase Urine RBC Urine WBC Ur Squamous Epith Cells Amorphous Sediment Urine Bacteria Urine Mucus Ur Culture Indicated? Ur Random Sodium 83 Urine Creatinine 61.3 Nasal Screen MRSA (PCR) Not detected A.calcoaceticus-baumannii cmplx PCR Bacteroides fragilis Melina albicans (PCR) Melina auris (PCR) C. glabrata (PCR) C. krusei (PCR) C. parapsilosis (PCR) C. tropicalis (PCR) C. neoform/gattii (PCR) Enterobacterales (PCR) E. cloacae complex PCR Enterococc faecalis PCR Enterococc faecium PCR E. coli (PCR) H. influenzae (PCR) Klebsiella aerogenes (PCR) Klebsiella oxytoca PCR Klebsiella pneumoniae List. monocytogenes PCR N. meningitidis (PCR) Proteus species (PCR) Salmonella spp. (PCR) Serratia marcescens PCR Staphylococcus sp PCR Staph aureus (PCR) Staph epidermidis (PCR) Staph lugdunensis PCR S. maltophilia (PCR) Streptococcus sp PCR Group A Strep (PCR) Strep agalactiae (PCR) Strep pneumoniae (PCR) P. aeruginosa (PCR) blaIMP Car res Gene PCR KPC-Carbap Res Gene PCR blaNDM Car Res Gene PCR OXA-48 Carbapenem Resis Gene (PCR) blaVIM Car Res Gene PCR CTX-M Gene Resistance (PCR) 06/07/23 06/07/23 06/07/23 04:06 04:06 04:06 WBC 12.1 H RBC 2.39 L Hgb 7.2 L Hct 22.5 L MCV 93.9 MCH 30.2 MCHC 32.2 RDW 20.5 H Plt Count 126 L Neut % (Auto) 86.1 H Lymph % (Auto) 5.0 L [place] % (Auto) 6.9 Eos % (Auto) 1.4 L Baso % (Auto) 0.6 Neut # (Auto) 37178 H Lymph # (Auto) 600 L [place] # (Auto) 800 Eos # (Auto) 200 Baso # (Auto) 100 RBC Morphology Not Reportable Anisocytosis 3+ H PT INR APTT Sodium 136 L Potassium 5.1 Chloride 105 Carbon Dioxide 21 L BUN 32 H Creatinine 2.78 H Estimated GFR 24 L BUN/Creatinine Ratio 11.5 Glucose 126 H Lactate Calcium 8.2 L Magnesium 2.3 Total Bilirubin 3.2 H AST 43 ALT 48 Alkaline Phosphatase 140 H Total Protein 7.6 Albumin 3.2 L Globulin 4.4 H Albumin/Globulin Ratio 0.7 L Lipase Procalcitonin Urine Color Urine Appearance Urine pH Ur Specific [place] Urine Protein Urine Glucose (UA) Urine Ketones Urine Occult Blood Urine Nitrate Urine Bilirubin Urine Urobilinogen Ur Leukocyte Esterase Urine RBC Urine WBC Ur Squamous Epith Cells Amorphous Sediment Urine Bacteria Urine Mucus Ur Culture Indicated? Ur Random Sodium Urine Creatinine Nasal Screen MRSA (PCR) A.calcoaceticus-baumannii cmplx PCR Bacteroides fragilis Melina albicans (PCR) Melina auris (PCR) C. glabrata (PCR) C. krusei (PCR) C. parapsilosis (PCR) C. tropicalis (PCR) C. neoform/gattii (PCR) Enterobacterales (PCR) E. cloacae complex PCR Enterococc faecalis PCR Enterococc faecium PCR E. coli (PCR) H. influenzae (PCR) Klebsiella aerogenes (PCR) Klebsiella oxytoca PCR Klebsiella pneumoniae List. monocytogenes PCR N. meningitidis (PCR) Proteus species (PCR) Salmonella spp. (PCR) Serratia marcescens PCR Staphylococcus sp PCR Staph aureus (PCR) Staph epidermidis (PCR) Staph lugdunensis PCR S. maltophilia (PCR) Streptococcus sp PCR Group A Strep (PCR) Strep agalactiae (PCR) Strep pneumoniae (PCR) P. 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 History of kidney stones History of prostate cancer (~2016) Iron deficiency Lower urinary tract symptoms Mixed hyperlipidemia Morbid obesity (08/16/15) Obstructive sleep apnea of adult (~2013) Pancreatitis (~1995) Phimosis Polyneuropathy, unspecified Primary insomnia (08/16/15) Recurrent sinusitis (~2007) Restless leg syndrome (~2013) Restrictive lung disease (08/16/15) Tinnitus (~1972) Urinary incontinence Surgical History Anesthesia History of common bile duct surgery (~1997) Status post knee surgery (~1993) Family History Brother Prostate cancer Liver cancer Father Parkinson disease Grandfather Hepatitis Grandfather History of heart disease Grandmother Cancer Social History household members: family Smoking Status: Never smoker alcohol intake: current Assessment & Plan Assessment & Plan narrative: 1. UTI-patient is on appropriate antibiotic therapy would seem. Await full sensitivities of his organism. 2. Acute kidney injury-likely secondary to his bilateral hydronephrosis, although some element of infection related issues as well given his bacteremia etcetera. Hopefully with appropriate treatment and some gentle IV fluids we can improve his renal function. Based on imaging does not appear that he is in in acute bladder retention situation and given difficulty in accessing his bladder previously does not seem like there is any need or indication for intervention at this time. Discussed with urology who concurs. 3. Anemia-patient is chronically anemic but not quite to this degree. His veronica pat are normal. He has documented iron deficiency in the past and is on oral iron replacement therapy. Go ahead and check folic acid B12 iron levels etcetera. Maybe related to some element of dilution. No evidence of active bleeding but will check stool for evidence of GI bleed. Check haptoglobin for evidence of intravascular hemolysis etcetera. Not at a level where I would recommend transfusion as yet. Plan to recheck tomorrow 4. Morbid obesity-patient is morbidly obese with a BMI of nearly 60. This obviously is contributing to most all of his active medical issues. It also make his care in the hospital here much more difficult as already made it more difficult to place a urinary catheter etcetera. Fortunately patient is still ambulatory at home on a normal day-to-day basis. This illness will likely set him back and he would benefit from skilled therapies etcetera. He has require placement in nursing home after hospitalization for UTI previously as well. Will consult Care management as well as skilled therapies 5. Sleep apnea-continue with CPAP at least overnight 6. Enterobacter bacteremia-patient on appropriate broad-spectrum antibiotics with ceftriaxone which should be appropriate for treatment. Still awaiting sensitivities for this particular organism. This is likely a secondary effect from I would presume will grow Enterobacter from his urine as well. At this time not seeking another source of infection 7. Sepsis-patient's heart rate and blood pressure vastly improved. I am not convinced he had sepsis initially but certainly is much better clinically at this time in can probably be removed from the ICU. 8. Obesity hypoventilation syndrome/cor pulmonale/restrictive lung disease- patient with significant pulmonary issues almost certainly secondary almost entirely to his morbid obesity. Continue with CPAP as above and supplemental oxygen as necessary to maintain oxygen saturation at 90-92+% Quality VTE Deep Vein Thrombosis/Pulmonary Embolism Present on Admission: No
[2023-06-07 10:27] LABS: HEMOLYSIS < 15 (0-50); Iron 24 ug/dL (49-181)
[2023-06-07 10:38] LABS: Percent Iron Saturation 11 % (20-50); Total Iron Binding Capacity 210 ug/dL (261-462); Transferrin 142 mg/dL (206-381)
[2023-06-07] MEDS: SODIUM CHLORIDE 0.9% 1,000 ML 100 ML IV (11:15)
[2023-06-07 11:53] LABS: Folate 16.8 ng/mL (2.76-20.0); Vitamin B12 > 1000 pg/mL (239-931)
--- NOTE | 2023-06-07 14:55 | CM.DANOTE ---
DCP Assessment Note: Patient is a 67yo male here under inpatient status for ESSENCE/UTI/sepsis/hx of prostate cancer. PCP Vince Goldstein [facility] and Medicaid CAP JEWEL PLATE ASSEMBLER reviewed EMR. CAP JEWEL PLATE ASSEMBLER entered room and introduced self and role. Patient was sitting up in chair and appeared A/Ox4 and was chatty and pleasant to work with. Patient lives alone in [place] and has family nearby, ANITRA/DPOA Tiffany [phone], that comes and check on him every few days. Tiffany came to visit patient partway through interaction. Tiffany reports she has the DPOA paperwork and would bring in a copy to scan into his chart. Patient ambulates with cane at baseline but owns a walker/wheelchair. 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 Patient goes to baptism/is involved with a mens group but other than that reports feeling lonely at home. Patient does not use O2 at baseline and is currently on O2 here. Patient adamantly denies wanting to go to an ASSISTED, however, is worried about his intermediate accountant caregiving plan/if he continues to get sicker over time. Patient reports that he would not like to go to a SNF. Patient reports having good experiences with [facility] in past and is open to it again if needed. Patient reports being sad he missed services today. CAP JEWEL PLATE ASSEMBLER called personal lines insurance agent Bekah Bradford, who reported she would come in for a personal spiritual service. CAP JEWEL PLATE ASSEMBLER provided patient with [employer] booklet for caregiver information. CAP JEWEL PLATE ASSEMBLER completed EMILY caregiver application for patient and faxed it to Region for review. Patient reported he would look into getting fall detection/alert system. Patient reported either ANITRA or other friends can bring him home when ready to transport. Plan: patient likely to d/c home, transport with family/friend, when medically stable. Open to [facility] for nursing/PT. CM team will continue to pursue EMILY application. CM team will continue to follow closely. PATIENCE Leonardo Discharge Planning/Care Management Advanced directive, confirm from FAMILY Start: 06/06/23 23:16 Freq: Q24H Status: Active Protocol: Document 06/06/23 23:16 (Rec: 06/07/23 00:09 [id number]) Advance Directive, confirm on record Time 22:20 Person contacted NA Copy received No Copy received No Advanced directive available on record No CM Discharge Assessment Start: 06/07/23 14:52 Freq: Status: Active Protocol: Document 06/07/23 14:52 (Rec: 06/07/23 14:54 [id number]) Discharge Planning Assessment Assigned Sen[employer] Insight Manager PATIENCE Tillman DPOA/Assigned Designee Name Tiffany Akers (sister in law) Contact Information [phone] Advance Directives? No Advance Directives on File No History Provided By Patient,Medical Record Prior Living Arrangements House Household Members none Comment sister in law and other family live close by Type of transporation used prior to Drives own vehicle admit Independent with ADL's Yes Is patient alert and oriented? Yes Needs Assistance With Home Chores / Shopping Comment family helps him with additional needs. DME Already Rented / Owned Wheelchair,FWW / Walker,Cane Comment ownes wheelchair/walker but only uses cane at baseline Comment patient open to [facility]. Discharge Plan Home Transportation Arrangement Pt states ANITRA Allen or a local friend can transport him home at d/c Referrals Initiated None needed Additional Comment None at this time but patient is open to [facility]. SNF/HH Preference [facility]. Whiteboard Updated in Patient Room with Yes name and ext. # of Seniour Insight Manager Review Status In Process Next Review Type Continued Stay Review
[2023-06-07] MEDS: MORPHINE 4 MG/ML INJ 3 MG IV (15:48)
[2023-06-07] MEDS: cefTRIAXone 2,000 MG in SODIUM CHLORIDE 0.9% 100 ML 200 MG IV (17:08)
[2023-06-07] MEDS: OXYCODONE IR 5 MG TABLET PO ×2 (17:08→21:13)
[2023-06-07] MEDS: DOXAZOSIN 2 MG TABLET 8 MG PO (21:12)
[2023-06-07] MEDS: SENNOSIDES 8.6 MG TABLET 17.2 MG PO (21:13)
[2023-06-07] MEDS: ACETAMINOPHEN 325 MG TABLET 650 MG PO (21:14)
[2023-06-07] MEDS: ONDANSETRON 4 MG ODT SL (21:16)
[2023-06-08] VITALS (12 sets, daily range): BP systolic 119–160; BP diastolic 66–87; PULSE 86–97; RESP 15–20; TEMP 36.2–36.6; O2SAT 94–96
[2023-06-08 05:12] LABS: BUN Creatinine Ratio 14.3 (6-22); Blood Urea Nitrogen 41 mg/dL (9-20); Calcium 8.4 mg/dL (8.4-10.2); Carbon Dioxide 21 mmol/L (22-32); Chloride 105 mmol/L (98-107); Estimated Glomerular Filt Rate 23 mL/min (>60); Glucose 130 mg/dL (80-110); HEMOLYSIS < 15 (0-50); Potassium 4.7 mmol/L (3.4-5.1); Sodium 136 mmol/L (137-145)
[2023-06-08 05:21] LABS: Basophils Absolute Auto 100 /uL (0-100); Basophils Percent Auto 0.6 % (0-2); Eosinophils Absolute Auto 200 /uL (0-450); Eosinophils Percent Auto 2.1 % (2-4); Hemoglobin 7.3 g/dL (13.5-17.5); Lymphocytes Absolute Auto 900 /uL (1100-4500); Lymphocytes Percent Auto 9.3 % (25-40); Mean Corpuscular Hemoglobin 30.7 PG (26-34); Monocytes Absolute Auto 700 /uL (0-900); Monocytes Percent Auto 7.5 % (3-14); Neutrophils Absolute Auto 7400 /uL (1500-7000); Neutrophils Percent Auto 80.5 % (50-75); Platelet Count 133 X10^3/uL (150-400); Red Blood Cell Count 2.37 X10^6/uL (4.5-5.9); Red Cell Distribution Width 20.1 % (11.6-14.8); White Blood Cell Count 9.2 X10^3/uL (4.5-11.0)
[2023-06-08 05:22] LABS: Add Manual Diff / Slide Review SLIDE REVIEW
[2023-06-08 07:05] LABS: Anisocytosis 2+
--- NOTE | 2023-06-08 07:28 | DI.CT.S_ITS ---
PROCEDURE: CT KIDNEY URETER BLADDER (KUB) INDICATIONS: Hydronephrosis TECHNIQUE: Axial sections were acquired from the lung bases to the pubic symphysis. Coronal and sagittal reformats were performed. For radiation dose reduction, the following was used: automated exposure control, adjustment of mA and/or kV according to patient size. COMPARISON: [facility], CT, CT ABDOMEN PELVIS W CON, 01/10/2022, 9:34. [facility], CT, ABDOMEN/PELVIS WITH CONTRAST, 01/29/2017, 10:49. [facility], NM, BONE SCAN WHOLE BODY, 01/29/2017, 13:45. [facility], CT, CT CHEST ABD PEL W CON, 12/15/2022, 17:25. [facility], CT, CT KIDNEY URETER BLADDER (KUB), 06/06/2023, 15:54. FINDINGS: Image quality: Excellent. Lung bases: Left lung base opacity has the appearance of atelectasis. No pleural effusion. Heart: No significant findings. URINARY: Right Kidney: No kidney stones. Mild hydronephrosis, not significantly changed. Right Ureter: Mild hydroureter. Left Kidney: 4 small nonobstructing kidney stones, largest measuring 0.8 cm, unchanged. 617 Hounsfield units. Mild hydronephrosis, not significantly changed. Left Ureter: Mild hydroureter. Bladder: Normal wall thickness. No stones. ABDOMEN: Liver: Hepatic steatosis. Gallbladder: Not distended. Biliary ducts: Unremarkable. Pancreas: Unremarkable. Spleen: Mild splenomegaly. Measures 17.7 cm. Adrenal Glands: Unremarkable. Stomach and Bowel: Stomach, small bowel loops, and colon are unremarkable. Diverticulosis. The appendix is not dilated. The appendix is gas-filled. Peritoneum: No abnormal intraperitoneal fluid. No free air. Ventral Wall: No hernia. Abdominal Nodes: No enlarged retroperitoneal or mesenteric lymph nodes. Vessels: Aorta and inferior vena cava are normal in size. PELVIS: Pelvic Organs: Prior TURP. Prostate is atrophic. Prostate fiducial markers. Pelvic Nodes: Unremarkable. Miscellaneous: No inguinal hernias are seen. Bones: T12 sclerotic focus. This is seen dating back to 2017 but is slightly increased in size. L5 sclerotic focus, not seen in 2017. However, these are unchanged since 01/10/2022. IMPRESSION: 1. Mild bilateral hydroureteronephrosis. 2. No obstructing calculus. Several small nonobstructing left kidney stones. 3. Prior TURP. Prostate is atrophic. 4. A few sclerotic foci which are unchanged since 2021 but increased compared to 2017. Low suspicion. However, correlation with PSA and bone scan should be considered. 5. No enlarged lymph nodes. 6. Hepatic steatosis. Splenomegaly. Diverticulosis. Dictated by: Allen Muñoz M.D. on 06/08/2023 at 7:52 Approved by: Allen Muñoz M.D. on 06/08/2023 at 8:09
--- NOTE | 2023-06-08 07:29 | P.PN_ITS ---
Subjective Subjective Date Patient Seen: 06/08/23 Time Patient Seen: 07:29 Interval history: Patient's renal function slightly worse again this morning. Difficult to know accuracy but per staff patient had an excess of 3 L of urine out yesterday. Also somewhat more anemic this morning Patient looks better. Has better color, whatever that means. He is able to get up and walk around without desaturating. Says he feels better slept most of the day yesterday which is maybe why he feels better. Exam Vital Signs (past 8 hours): - 06/08/23 00:00 06/08/23 00:00 06/08/23 04:00 Temperature 97.2 F L Pulse Rate 94 H Respiratory Rate 19 Blood Pressure 137/66 Pulse Oximetry 95 Oxygen Delivery Method Room Air Room Air Oxygen Delivery Method Room Air Oxygen Flow Rate 2 Objective Labs 06/08/23 04:14 06/08/23 04:14 Labs: Laboratory Results - last 24 hr 06/07/23 06/07/23 06/07/23 04:06 04:06 04:06 WBC 12.1 H RBC 2.39 L Hgb 7.2 L Hct 22.5 L MCV 93.9 MCH 30.2 MCHC 32.2 RDW 20.5 H Plt Count 126 L Neut % (Auto) 86.1 H Lymph % (Auto) 5.0 L Brooke % (Auto) 6.9 Eos % (Auto) 1.4 L Baso % (Auto) 0.6 Neut # (Auto) 32035 H Lymph # (Auto) 600 L Brooke # (Auto) 800 Eos # (Auto) 200 Baso # (Auto) 100 RBC Morphology Not Reportable Anisocytosis 3+ H Sodium Potassium Chloride Carbon Dioxide BUN Creatinine Estimated GFR BUN/Creatinine Ratio Glucose Calcium Magnesium 2.3 Iron TIBC % Saturation Transferrin Vitamin B12 > 1000 H Folate 16.8 06/07/23 06/08/23 06/08/23 04:06 04:14 04:14 WBC 9.2 RBC 2.37 L Hgb 7.3 L Hct 22.0 L MCV 93.0 MCH 30.7 MCHC 33.0 RDW 20.1 H Plt Count 133 L Neut % (Auto) 80.5 H Lymph % (Auto) 9.3 L Brooke % (Auto) 7.5 Eos % (Auto) 2.1 Baso % (Auto) 0.6 Neut # (Auto) 7400 H Lymph # (Auto) 900 L Brooke # (Auto) 700 Eos # (Auto) 200 Baso # (Auto) 100 RBC Morphology Not Reportable Anisocytosis 2+ H Sodium 136 L Potassium 4.7 Chloride 105 Carbon Dioxide 21 L BUN 41 H Creatinine 2.87 H Estimated GFR 23 L BUN/Creatinine Ratio 14.3 Glucose 130 H Calcium 8.4 Magnesium Iron 24 L TIBC 210 L % Saturation 11 L Transferrin 142 L Vitamin B12 Folate [facility] Medical History Anemia of chronic disease Chronic venous insufficiency (04/10/16) Eczema (~1996) Frequent UTI (~2017) 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 History of kidney stones History of prostate cancer (~2016) Iron deficiency Lower urinary tract symptoms Mixed hyperlipidemia Morbid obesity (08/16/15) Obstructive sleep apnea of adult (~2013) Pancreatitis (~1995) Phimosis Polyneuropathy, unspecified Primary insomnia (08/16/15) Recurrent sinusitis (~2007) Restless leg syndrome (~2013) Restrictive lung disease (08/16/15) Tinnitus (~1972) Urinary incontinence Surgical History Anesthesia History of common bile duct surgery (~1997) Status post knee surgery (~1993) Family History Brother Prostate cancer Liver cancer Father Parkinson disease Grandfather Hepatitis Grandfather History of heart disease Grandmother Cancer Social History household members: none Smoking Status: Never smoker alcohol intake: current Assessment & Plan Assessment & Plan narrative: 1. UTI-patient is on appropriate antibiotic therapy would seem. Await full sensitivities of his organisms, both from the blood and urine. 2. Acute kidney injury-not improved as expected. Plan to repeat imaging to see if there is evidence of continued hydronephrosis or to more accurately assess the degree of bladder distention if present. Seems unlikely that he is got significant bladder outlet obstruction given the 3 L plus of urine output. However very difficult to assess in this morbidly obese individual. Perhaps there is some degree of ATN ongoing here as well. 3. Anemia-patient is somewhat more anemic this morning. Iron levels done yesterday demonstrate his continued iron deficiency. Patient already taking iron 3 times a day at home. I am going to go ahead and give him a couple doses of parental iron while he is here. I continue to believe there is some element of a dilutional factor ongoing here. 4. Sleep apnea-continue with CPAP at least overnight 5. Enterobacter bacteremia-patient on appropriate broad-spectrum antibiotics with ceftriaxone which should be appropriate for treatment. Still awaiting sensitivities for this particular organism. This is likely a secondary effect from I would presume will grow Enterobacter from his urine as well. At this time not seeking another source of infection 6. Sepsis-resolved 7. Obesity hypoventilation syndrome/cor pulmonale/restrictive lung disease- patient with significant pulmonary issues almost certainly secondary almost enti rely to his morbid obesity. Continue with CPAP as above and supplemental oxygen as necessary to maintain oxygen saturation at 90-92+% Quality VTE Deep Vein Thrombosis/Pulmonary Embolism Present on Admission: No
[2023-06-08] MEDS: ASPIRIN EC 81 MG TABLET PO (09:37)
[2023-06-08] MEDS: FERROUS SULFATE 325 MG TABLET PO ×3 (09:38→17:05)
[2023-06-08] MEDS: SODIUM FERRIC GLUCONAT/SUCROSE 125 MG in SODIUM CHLORIDE 0.9% 100 ML 110 MG IV (10:33)
--- NOTE | 2023-06-08 11:28 | PT.IIE ---
Current Diagnoses Sepsis, unspecified organism (06/06/23) Morbid (severe) obesity due to excess calories (06/06/23) Mixed hyperlipidemia (06/06/23) Obstructive sleep apnea (adult) (pediatric) (06/06/23) Other disorders of lung (06/06/23) Acute kidney failure, unspecified (06/06/23) Urinary tract infection, site not specified (06/06/23) Hidden penis (06/06/23) Personal history of malignant neoplasm of prostate (06/06/23) Surgical History (Last Reviewed 06/07/23 @ 10:49 by Vince Goldstein MD) Anesthesia History of common bile duct surgery (~1997) Status post knee surgery (~1993) Medical History (Last Reviewed 06/07/23 @ 10:49 by Vince Goldstein MD) Anemia of chronic disease Chronic venous insufficiency (04/10/16) Eczema (~1996) Frequent UTI (~2017) 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 History of kidney stones History of prostate cancer (~2016) Iron deficiency Lower urinary tract symptoms Mixed hyperlipidemia Morbid obesity (08/16/15) Obstructive sleep apnea of adult (~2013) Pancreatitis (~1995) Phimosis Polyneuropathy, unspecified Primary insomnia (08/16/15) Recurrent sinusitis (~2007) Restless leg syndrome (~2013) Restrictive lung disease (08/16/15) Tinnitus (~1972) Urinary incontinence Physical Therapy Inpatient Evaluation/Re-Eval M1 PT/OT-IP Prior Functional Status Start: 06/08/23 08:45 Freq: NEEDED Status: Active Protocol: Document 06/08/23 11:28 AW (Rec: 06/08/23 12:26 AW [id number]) Medical Review Prior Functional Status Medical History Reviewed Yes Communication WNL. Pt is an effective verbal communicator. Mobility and Gait Pt uses a cane for most mobility. He gets around his house with a cane, breaking up longer trips into shorter segments as needed due to SOB. For instance, pt can walk from his living room to kitchen, take a break, and then complete the trip to his car. Pt uses a 4WW for some appointment so he has a seat to accommodate his limited standing tolerance. When going to appointments that require longer distances, he takes a friend who can push him in a wheelchair. Activities of Daily Living and IADL's Independent with basic ADL's. Pt drives and uses [employer] delivery for shopping. He generally cooks for himself. He has a hostel parent once monthly to assist with deep cleaning. Social History Household Members none Living Arrangements House Number of Floors (Floors) One Floor Number of Stairs To Enter/Railing? 2 JOVITA with railing Home Environment Standard Height Toilet,Walk in Shower Home Equipment Four Wheel Walker,Straight Cane,Manual Wheelchair,Shower Seat without Backrest Employment Status Retired Additional Social History Comment Pt's uncle lives in the attached garage but generally does not interact with the pt. Pt's [id number], a retired RN, lives across the street and checks in on pt frequently . Pt has a social group through his taoism. M2 PT-IP Current Condition Start: 06/08/23 08:45 Freq: NEEDED Status: Active Protocol: Document 06/08/23 11:28 AW (Rec: 06/08/23 12:26 AW [id number]) Physical Therapy Current Condition Current Condition Evaluation Date 06/08/23 Treatment Diagnosis UTI, ESSENCE, anemia, bacteremia, impaired mobility Onset Date 06/06/23 M3 PT-IP Subjective Start: 06/08/23 08:45 Freq: NEEDED Status: Active Protocol: Document 06/08/23 11:28 AW (Rec: 06/08/23 12:26 AW [id number]) Subjective Physical Therapy Visit Type Type Initial Evaluation Visit Start Time 11:02 Visit Stop Time 11:28 Total Visit Minutes 26 Physical Therapy Visit Comments Patient Comments Pt is willing to participate with PT Patient Goals Return home, avoid SNF if possible. Therapy Pain Assessment Pain When Pain Assessed During Mobility Pain Present Pain Present Denied Pain M4 PT-IP Mobility and Gait Start: 06/08/23 08:45 Freq: NEEDED Status: Active Protocol: Document 06/08/23 11:28 AW (Rec: 06/08/23 12:26 AW [id number]) PT-Transfer Assessment Sit to and From Stand Sit to and from Stand Standby Assistance Equipment Transfer Assistive Device Straight Cane Transfers Transfer Destination Chair Transfer Technique Stand Step Pivot Transfer Ability Level of Assist Standby Assistance Comments Mobility Comments Pt was sitting up in the bedside chair as PT arrived. He states he had been up in the chair for over a day, having slept there last night. He finds it more comfortable than the bed. SpO2 was 94% on room air at rest. Pt stood with SBA ansd used his cane to ambulate 30 feet in the room, fatiguing quickly and feeling SOB. SpO2 during ambulation was 91% but quickly recovered to 94% when pt returned to sitting. Pt was left with call light in reach. Gait Assessment Gait Gait Assistance Required: Standby Assistance Distance (Feet) 30 Assistive Devices Assistive Device Straight Cane Gait Deviations General Gait Pattern Antalgic,Decreased Stride Length,Decreased Feet Clearance,Lateral Trunk Lean, Wide Based Gait Factors Limiting Gait Function Factors Limiting Gait Function Decreased Activity Tolerance, Decreased Strength,Respiratory Distress Comments Gait Comments Pt walks slowly with wide ERIC but no impression of fall risk . Pt self-reports decreased functional reserve for ambulation. Stair Climbing Assessment Comments Stair Climbing Comments Not assessed due to fatigue. PT-Balance Assessment Sitting Balance and Reactions Static Sitting Balance Ability Normal Dynamic Sitting Balance Ability Good Standing Balance and Reactions Static Standing Balance Ability Good Dynamic Standing Balance Ability Good Device Used SPC M5 PT-IP Objective Assessments Start: 06/08/23 08:45 Freq: NEEDED Status: Active Protocol: Document 06/08/23 11:28 AW (Rec: 06/08/23 12:26 AW [id number]) Orientation Orientation/Cognition Level of Alertness Alert Orientation Name,Day of Week,Place, Situation Language Function Ability No Deficits Noted Safety Awareness Understands Safety Issues Memory Description No Deficits Noted Gross Range of Motion Upper Extremity ROM Assessment Within Functional Limits Lower Extremity ROM Assessment Within Functional Limits Impairments Slight limitation in dorsiflexion bilaterally secondary to habitus and BLE edema Strength Lower Extremity Strength Assessment Within Functional Limits Hip flex 5/5; ext 4/5 Knee 5/5 Ankle 5/5 Sensation Assessment Sensation Gross Sensation Right UE Impaired,Left UE Impaired,Right LE Impaired, Left LE Impaired Light Touch Impaired Proprioception (Position) Impaired Comments Sensation Comments Neuropathy affects bilateral feet and hands. Pt acknowledges needing to use vision to compensate for poor sensation in his feet. M6 PT-IP Treatment Start: 06/08/23 08:45 Freq: NEEDED Status: Active Protocol: Document 06/08/23 11:28 AW (Rec: 06/08/23 12:26 AW [id number]) Physical Therapy Treatment Education Education Provided Safety M7 PT-IP Assessment and Plan Start: 06/08/23 08:45 Freq: NEEDED Status: Active Protocol: Document 06/08/23 11:28 AW (Rec: 06/08/23 12:26 AW [id number]) PT Summary Assessment and Plan Potential Rehabilitation Potential Good Status of Condition at Evaluation Evolving Summary Impairments ROM,Transfers,Gait,Activity Tolerance Assessment Summary Jose Francisco is a 67 yo man seen for PT evaluation while admitted with bacteremia secondary to UTI. PMH includes hyperlipidemia, venous insufficiency, recurrent UTI, and gout. Pt is modified independent at baseline using SPC but only tolerates short household distances due to shortness of breath. CLOF: Pt presents with solid functional strength and requires no more than SBA for mobility with SPC but has quick approach to fatigue. PT anticipates pt will progress his endurance during his hospital stay and be able to discharge home with assist and home PT (to progress functional mobility) once medically stable. Will continue to assess. Goals Bed Mobility Goal Independent Transfer Goal Independent,Cane Gait Goal Independent,Cane Gait Distance 40 + 40 + 40 feet Other Goals - pt to climb 2 steps with unilateral rail mod IND Days to Meet Goals 5 Frequency of Treatment Frequency Of Treatment Once a Day Treatment Plan Physical Therapy Treatment Plan Bed Mobility Training,Transfer Training,Gait Training, Therapeutic Exercise,Balance Retraining,Discharge Planning, Hot or Cold Pack Other Recommendations and Next Treatment progress mobility as tolerated Focus ; assess stair management Precautions Other Precautions monitor H&H and SpO2 Recommendations To Nursing Amount of Assist Needed Standby Assistance Discharge Recommendations PT Discharge Recommendations Home with Assistance,Home Health Transportation Needs at Discharge Private Vehicle
--- NOTE | 2023-06-08 12:40 | OT.IP.EVAL ---
Current Diagnoses Sepsis, unspecified organism (06/06/23) Morbid (severe) obesity due to excess calories (06/06/23) Mixed hyperlipidemia (06/06/23) Obstructive sleep apnea (adult) (pediatric) (06/06/23) Other disorders of lung (06/06/23) Acute kidney failure, unspecified (06/06/23) Urinary tract infection, site not specified (06/06/23) Hidden penis (06/06/23) Personal history of malignant neoplasm of prostate (06/06/23) Past Medical History (Last Reviewed 06/07/23 @ 10:49 by Vince Goldstein MD) Anemia of chronic disease Chronic venous insufficiency (04/10/16) Eczema (~1996) Frequent UTI (~2017) 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 History of kidney stones History of prostate cancer (~2016) Iron deficiency Lower urinary tract symptoms Mixed hyperlipidemia Morbid obesity (08/16/15) Obstructive sleep apnea of adult (~2013) Pancreatitis (~1995) Phimosis Polyneuropathy, unspecified Primary insomnia (08/16/15) Recurrent sinusitis (~2007) Restless leg syndrome (~2013) Restrictive lung disease (08/16/15) Tinnitus (~1972) Urinary incontinence Surgical History (Last Reviewed 06/07/23 @ 10:49 by Vince Goldstein MD) Anesthesia History of common bile duct surgery (~1997) Status post knee surgery (~1993) Occupational Therapy Inpatient Evaluation/Re-Eval M1 PT/OT-IP Prior Functional Status Start: 06/08/23 08:45 Freq: NEEDED Status: Active Protocol: Document 06/08/23 12:55 CGR (Rec: 06/08/23 13:09 CGR [id number]) Medical Review Prior Functional Status Medical History Reviewed Yes Communication WNL. Pt is an effective verbal communicator. Mobility and Gait Pt uses a cane for most mobility. He gets around his house with a cane, breaking up longer trips into shorter segments as needed due to SOB. For instance, pt can walk from his living room to kitchen, take a break, and then complete the trip to his car. Pt uses a 4WW for some appointment so he has a seat to accommodate his limited standing tolerance. When going to appointments that require longer distances, he takes a friend who can push him in a wheelchair. Activities of Daily Living and IADL's Independent with basic ADL's. Pt drives and uses [employer] for shopping. He generally cooks for himself. He has a railroad detective once monthly to assist with deep cleaning. Social History Household Members none Living Arrangements House Number of Floors (Floors) One Floor Number of Stairs To Enter/Railing? 2 JOVITA with railing Home Environment Standard Height Toilet,Walk in Shower Home Equipment Four Wheel Walker,Straight Cane,Manual Wheelchair,Shower Seat without Backrest,Hand Held Shower,Grab Bars In Shower Employment Status Retired Additional Social History Comment Pt's uncle lives in the attached garage but generally does not interact with the pt. Pt's [id number], a retired RN, lives across the street and checks in on pt frequently . Pt has a social group through his sikh. Per pt, the house belongs to his sister and she does not want him to put up grab bars etc. M2 OT-IP Current Condition Start: 06/08/23 12:55 Freq: Status: Active Protocol: Document 06/08/23 12:55 CGR (Rec: 06/08/23 13:09 R [id number]) Occupational Therapy Current Condition Current Condition Evaluation Date 06/08/23 Treatment Diagnosis UTI Diagnosis Onset Date 06/06/23 M3 OT- IP Subjective and Pain Start: 06/08/23 12:55 Freq: Status: Active Protocol: Document 06/08/23 12:55 CGR (Rec: 06/08/23 13:09 R [id number]) OT- Subjective Occupational Therapy Visit Type Type Initial Evaluation Visit Start Time 11:38 Visit Stop Time 12:40 Total Visit Minutes 62 Notes Pt's friend Alberto entered the room during the session. OT Pain Assessment Pain When Pain Assessed At Rest Pain Present Pain Present Pain Reported Location Low Back Intensity 3 Scale Used Numeric (0 - 10) Management Techniques Modification of Treatment,Re- positioning,Timing of Activity with Medications M4 OT- IP ADL's Start: 06/08/23 12:55 Freq: Status: Active Protocol: Document 06/08/23 12:55 CGR (Rec: 06/08/23 13:09 R [id number]) OT [id number] Comments OT Self-Feeding Comments not meal time, lunch arrived during session but pt declined to start eating. OT ADL-Grooming Comments OT Grooming Comments not performed OT ADL-Oral Care Comments Oral Care Comments not performed OT ADL-Dressing Comments OT Dressing Comments not performed OT ADL-Toileting General Evaluation Toileting Ability Standby Assistance Comments OT Toileting Comments Pt was able to manage clothing and perform urination seated on toilet OT ADL-Bathing Comments OT Bathing Comments not performed M5 OT- IP IADL's Start: 06/08/23 12:55 Freq: Status: Active Protocol: Document 06/08/23 12:55 CGR (Rec: 06/08/23 13:09 CGR [id number]) OT-Instrumental Activities of Daily Living Deficits IADL Deficits Identified No Deficits Home Safety Awareness Awareness of Need for Assistance at Home Good Awareness Ability to Problem Solve Emergency Able to Problem Solve Situations Medication Management Medication Management No Deficits Identified Money Management Money Management No Deficits Identified Meal Preparation Meal Preparation Comments Concerns regarding pt's ability to perform 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 M6 OT- IP Functional Cognition Start: 06/08/23 12:55 Freq: Status: Active Protocol: Document 06/08/23 12:55 CGR (Rec: 06/08/23 13:09 CGR [id number]) Cognitive Factors Limiting Selfcare Function Cognitive Ability Level of Alertness Alert Patient Orientation Name,Age,Birthday,Month,Date, Year,Day of Week,Place, Situation Attention Span Ability Capable of Focused Attention, Capable of Sustained Attention Ability to Follow Commands Able to Follow Multi-Step Commands Safety Awareness No Deficits Noted OT- Vision and Hearing OT- Hearing Assessment OT- Hearing Assessment WFL OT- Vision Assessment Vision History Cataracts Visual Acuity WFL Visual Attentiveness WFL Occular Pursuits WFL Visual Convergence WFL Vision Assessment Comments Pt had cateract sx sept and Oct . M7 OT- IP Mobility and Balance Start: 06/08/23 12:55 Freq: Status: Active Protocol: Document 06/08/23 12:55 CGR (Rec: 06/08/23 13:09 CGR [id number]) OT-Transfer Assessment Sit to and From Stand Sit to and from Stand Standby Assistance Transfers Transfer Ability Standby Assistance Technique Transfer Destination Chair,Toilet Transfer Technique Stand Step Pivot Devices Transfer Assistive Devices Straight Cane Comments Mobility Comments Pt stood without difficulty and ambulated to toilet for toileting then returned to chair. OT- Gait Assessment Gait Gait Assistance Required: Standby Assistance Assistive Devices Assistive Device Straight Cane OT- Balance Assessment Sitting Balance and Reactions Static Sitting Balance Ability Good Dynamic Sitting Balance Ability Good M8 OT- IP Objective Assessments Start: 06/08/23 12:55 Freq: Status: Active Protocol: Document 06/08/23 12:55 CGR (Rec: 06/08/23 13:09 CGR [id number]) OT Gross Range of Motion Upper Extremity Range of Motion Assessment Within Functional Limits OT Strength Upper Extremity Strength Assessment Within Functional Limits Comments Strength Comments 4 to 4+/5 OT- Coordination Assessment Upper Extremity Finger to Nose Test Within Functional Limits Finger Tapping Test Within Functional Limits OT-Muscle Tone Assessment Muscle Tone WNL Yes OT Sensation Assessment Comments Summary Comments Pt states he has neuropathy to B hand and feet. Edema Edema Present Edema Comments BLE M9 OT- IP Assessment and Plan Start: 06/08/23 12:55 Freq: Status: Active Protocol: Document 06/08/23 12:55 CGR (Rec: 06/08/23 13:09 CGR [id number]) OT Summary Assessment and Plan Potential Rehabilitation Potential Good Analytic Complexity at Evaluation Moderate Summary OT Impairments Pain,Strength,Balance, Functional Mobility,Grooming, Dressing,Toileting,Bathing, Toilet Transfers,Shower Transfers,Activity Tolerance Progress Towards Goals Progressing Toward Goals Assessment Summary Pt presents as a moderate complexity evaluation s/p admit for UTI with sepsis. Pt currently with poor kidney function. Pt is preforming at a SBA level but would benefit from LB dressing training and home safety. Pt's biggest factor is endurance. Educated pt on need to increase his activity level to increase his endurance. Pt will benefit from continued Ot services. Pt would like to return home and is refusing SNF. Goals Grooming Goal Independent Dressing Goal Independent Toileting Goal Independent Bathing Goal Independent Toilet Transfer Goal Independent Shower Transfer Goal Independent Days to Meet Goals 3 Frequency of Treatment Frequency Of Treatment Once a Day Treatment Plan OT Treatment Plan ADL Training,Functional Mobility,Patient/Family Education,Discharge Planning Other Treatment Recommendations and Next LB dressing with AD, home Treatment Focus safety, endurance Discharge Recommendations OT Discharge Recommendations Home,Home Health Transportation Needs at Discharge Private Vehicle
[2023-06-08] MEDS: CEFEPIME 1 GM in SODIUM CHLORIDE 0.9% 100 ML IV (12:53)
[2023-06-08] MEDS: diphenhydrAMINE 25 MG TABLET PO (12:54)
--- NOTE | 2023-06-08 14:23 | CM.DPC ---
Addendum entered by PATIENCE Leonardo 06/08/23 16:23: [facility] assigned worker Nguyen Garza ([phone]) lvm at desk as this MOTORCYCLE MECHANIC APPRENTICE was leaving. Plan: MOTORCYCLE MECHANIC APPRENTICE will return call first thing in am to follow up for patient's application for long-term caregivers. SHANNEN Addendum entered by PATIENCE Leonardo 06/08/23 15:08: Kathie from [facility] reported they can accept patient for services. SHANNEN Original Note: DCP Continued: MOTORCYCLE MECHANIC APPRENTICE reviewed EMR. ANITRA Allen provided DPOA paperwork. Nursing staff made a copy to scan into patient's EMR. Per PT/OT note, patient could benefit from HH services. MOTORCYCLE MECHANIC APPRENTICE asked MICHELLE Harris to send initial referral information to [facility] per patient request. MOTORCYCLE MECHANIC APPRENTICE received call from Katherine Jameson from [facility]. Katherine asked for patient to fill out form [id number] and send it to her at [email or web address]. MOTORCYCLE MECHANIC APPRENTICE printed form and provided it to patient. Patient completed it. MOTORCYCLE MECHANIC APPRENTICE scanned it in and emailed to Katherine. At this time, patient continues to deny SNF or [facility] services and wishes to go home. Plan: patient likely to d/c home with [facility] PT/OT services, pending provider on board with [facility]. [facility] reviewing long-term care application. CM team will continue to follow closely for needs. PATIENCE Leonardo
[2023-06-08] MEDS: OXYCODONE IR 5 MG TABLET PO (19:36)
[2023-06-08] MEDS: DOXAZOSIN 2 MG TABLET 8 MG PO (21:23)
[2023-06-08] MEDS: ROPINIROLE 1 MG TABLET 2 MG PO (21:24)
[2023-06-08] MEDS: SENNOSIDES 8.6 MG TABLET 17.2 MG PO (21:24)
[2023-06-08] MEDS: TRAZODONE 50 MG TABLET PO (21:25)
[2023-06-08] MEDS: SODIUM CHLORIDE 0.9% FLUSH 10 ML IV (21:25)
[2023-06-09] VITALS (13 sets, daily range): BP systolic 131–189; BP diastolic 71–85; PULSE 79–99; RESP 16–22; TEMP 36.2–36.6; O2SAT 81–99
[2023-06-09] MEDS: CEFEPIME 1 GM in SODIUM CHLORIDE 0.9% 100 ML IV ×2 (00:09→11:13)
[2023-06-09] MEDS: OXYCODONE IR 5 MG TABLET PO ×3 (04:39→21:00)
[2023-06-09 04:56] LABS: Hemoglobin 7.7 g/dL (13.5-17.5)
[2023-06-09 04:57] LABS: Hematocrit 23.6 % (41-53)
[2023-06-09 05:10] LABS: Alanine Aminotransferase 38 IU/L (<50); Albumin 3.5 g/dL (3.5-5.0); Albumin Globulin Ratio 0.7 (1.0-2.8); Alkaline Phosphatase 151 U/L (38-126); Aspartate Aminotransferase 28 IU/L (17-59); Bilirubin Total 1.2 mg/dL (0.2-1.3); Bilirubin Unconjugated 0.2 mg/dL (0.0-1.1); Globulin 4.9 g/dL (1.7-4.1); HEMOLYSIS < 15 (0-50); Total Protein 8.4 g/dL (6.3-8.2)
[2023-06-09 05:11] LABS: BUN Creatinine Ratio 13.9 (6-22); Blood Urea Nitrogen 44 mg/dL (9-20); Calcium 8.7 mg/dL (8.4-10.2); Carbon Dioxide 21 mmol/L (22-32); Chloride 106 mmol/L (98-107); Estimated Glomerular Filt Rate 21 mL/min (>60); Glucose 103 mg/dL (80-110); HEMOLYSIS < 15 (0-50); Sodium 137 mmol/L (137-145)
--- NOTE | 2023-06-09 05:11 | PC.NURSE ---
at 0445 patient attempted to urinate and voided approximately 5ml of myles blood. no stones noted but filter placed for future voids. Patient also indorses no significant void since 2200, however patient has voided at total of 900ml this shift. Bladder scan was attempted but given patients anatomy and inability to lay completely flat, measurement was inconclusive. Ordered PO pain medication given. Patient also complains of abdominal cramping and requests a more potent laxative.
[2023-06-09 05:12] LABS: Potassium 5.7 mmol/L (3.4-5.1)
[2023-06-09] MEDS: BISACODYL 5 MG TABLET PO (05:43)
[2023-06-09 06:03] LABS: Haptoglobin 324 mg/dL (32-363)
--- NOTE | 2023-06-09 07:05 | P.PN_ITS ---
Subjective Subjective Date Patient Seen: 06/09/23 Time Patient Seen: 07:05 Interval history: Patient essentially unchanged clinically. Lab work shows slight increase in creatinine. Urine output still in excess of 3 L per our best ability to measure. Antibiotic therapy adjusted slightly yesterday based on culture and sensitivities of urine and blood This morning patient had difficulty voiding again. Grant like things are not emptying. When he did actually void he had myles blood coming out. However he eventually was able to void and felt much better and has been sleeping ever sense. Exam Vital Signs (past 8 hours): - 06/09/23 00:00 Temperature 97.1 F L Pulse Rate 89 Respiratory Rate 16 Blood Pressure 131/71 Pulse Oximetry 95 Oxygen Delivery Method Room Air Oxygen Flow Rate 0 Objective Labs 06/09/23 04:09 06/09/23 04:09 Labs: Laboratory Results - last 24 hr 06/08/23 06/08/23 06/09/23 04:14 04:14 04:09 Hgb Hct RBC Morphology Not Reportable Anisocytosis 2+ H Haptoglobin 324 Sodium Potassium Chloride Carbon Dioxide BUN Creatinine Estimated GFR BUN/Creatinine Ratio Glucose Calcium Total Bilirubin 1.2 Conjugated Bilirubin 0.0 Unconjugated Bilirubin 0.2 AST 28 ALT 38 Alkaline Phosphatase 151 H Total Protein 8.4 H Albumin 3.5 Globulin 4.9 H Albumin/Globulin Ratio 0.7 L 06/09/23 06/09/23 04:09 04:09 Hgb 7.7 L Hct 23.6 L RBC Morphology Anisocytosis Haptoglobin Sodium 137 Potassium 5.7 H Chloride 106 Carbon Dioxide 21 L BUN 44 H Creatinine 3.16 H Estimated GFR 21 L BUN/Creatinine Ratio 13.9 Glucose 103 Calcium 8.7 Total Bilirubin Conjugated Bilirubin Unconjugated Bilirubin AST ALT Alkaline Phosphatase Total Protein Albumin Globulin Albumin/Globulin Ratio [facility] Medical History Anemia of chronic disease Chronic venous insufficiency (04/10/16) Eczema (~1996) Frequent UTI (~2017) 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 History of kidney stones History of prostate cancer (~2016) Iron deficiency Lower urinary tract symptoms Mixed hyperlipidemia Morbid obesity (08/16/15) Obstructive sleep apnea of adult (~2013) Pancreatitis (~1995) Phimosis Polyneuropathy, unspecified Primary insomnia (08/16/15) Recurrent sinusitis (~2007) Restless leg syndrome (~2013) Restrictive lung disease (08/16/15) Tinnitus (~1972) Urinary incontinence Surgical History Anesthesia History of common bile duct surgery (~1997) Status post knee surgery (~1993) Family History Brother Prostate cancer Liver cancer Father Parkinson disease Grandfather Hepatitis Grandfather History of heart disease Grandmother Cancer Social History household members: none Smoking Status: Never smoker alcohol intake: current Assessment & Plan Assessment & Plan narrative: 1. UTI-antibiotic adjusted to different cephalosporin based on urine culture and sensitivities. 2. Acute kidney injury-not improved as expected. Imaging done yesterday did not demonstrate any significant change. Still does not demonstrate significant bladder outlet obstruction with distended bladder etcetera. Hopefully with appropriate therapies and time renal function will improve. Patient does show evidence of hydronephrosis which is not expected to resolve immediately on imaging. Patient is super high risk and super difficult patient for any sort of intervention and at this point do not believe that is indicated. Would expect h is creatinine to begin to improve at any point. 3. Anemia-patient's blood count stable to slightly improved. Receive first bag of parental iron yesterday and second bag should be today. Given the frankly bloody urine that he is producing wonder if this is a source of his worsening anemia. 4. Sleep apnea-continue with CPAP at least overnight 5. Enterobacter bacteremia-patient on appropriate broad-spectrum antibiotics with cephalosporin which should be appropriate for treatment. 6. Sepsis-resolved 7. Obesity hypoventilation syndrome/cor pulmonale/restrictive lung disease- patient with significant pulmonary issues almost certainly secondary almost entirely to his morbid obesity. Continue with CPAP as above and supplemental oxygen as necessary to maintain oxygen saturation at 90-92+% 8. Weakness/obesity-patient when seen by Physical therapy. Patient appears to be pretty independent with a cane, and has done okay regarding hypoxia with activity. Continue with skilled therapies. Will likely be able to return home when renal function improves. Quality VTE Deep Vein Thrombosis/Pulmonary Embolism Present on Admission: No
--- NOTE | 2023-06-09 08:55 | PT.IPTN ---
Current Diagnoses Sepsis, unspecified organism (06/06/23) Morbid (severe) obesity due to excess calories (06/06/23) Mixed hyperlipidemia (06/06/23) Obstructive sleep apnea (adult) (pediatric) (06/06/23) Other disorders of lung (06/06/23) Acute kidney failure, unspecified (06/06/23) Urinary tract infection, site not specified (06/06/23) Hidden penis (06/06/23) Personal history of malignant neoplasm of prostate (06/06/23) Physical Therapy Treatment Note M2 PT-IP Current Condition Start: 06/08/23 08:45 Freq: NEEDED Status: Active Protocol: Document 06/08/23 11:28 AW (Rec: 06/08/23 12:26 AW [id number]) Physical Therapy Current Condition Current Condition Evaluation Date 06/08/23 Treatment Diagnosis UTI, ESSENCE, anemia, bacteremia, impaired mobility Onset Date 06/06/23 M3 PT-IP Subjective Start: 06/08/23 08:45 Freq: NEEDED Status: Active Protocol: Document 06/09/23 09:38 TS (Rec: 06/09/23 10:03 TS [id number]) Subjective Physical Therapy Visit Type Type Treatment Note Visit Start Time 08:55 Visit Stop Time 09:22 Total Visit Minutes 27 Notes Spo2 99% at rest on RA, after mobility 95% on RA. Number of DIRECTOR OF INVESTIGATIONS Visits 1 Physical Therapy Visit Comments Patient Comments Pt feeling tired this morning and c/o SOB with mobility, required some motivation to participate, agreeable to PT. Patient Goals Return home, avoid SNF if possible. M4 PT-IP Mobility and Gait Start: 06/08/23 08:45 Freq: NEEDED Status: Active Protocol: Document 06/09/23 09:38 TS (Rec: 06/09/23 10:03 TS [id number]) PT-Transfer Assessment Sit to and From Stand Sit to and from Stand Standby Assistance Equipment Transfer Assistive Device Straight Cane Comments Mobility Comments Pt found resting in chair, Spo2 at rest 99% on RA, agreeable to PT. Sit to stand from chair SBA with use of SPC and arm of chair to come into standing, pt requires some extra time and effort to stand . Pt ambulated in room ~30'SBA with slow antalgic step thru gait and SPC w/WBOS. He became SOB after gait, sat in chair, Spo2 95% on RA. Sit tos tand from chair x1 SBA with SPC, pt ambulated to step stool in room. Steps x2 CGA with SPC LUE and counter support with RUE, provided cues for step sequencing. Pt back in chair, provided education on the importance of mobility while in hospital and at home and to continue to mobilize with nursing. Pt was left in chair with friend in room, all needs met. Gait Assessment Gait Gait Assistance Required: Standby Assistance Distance (Feet) 30 Assistive Devices Assistive Device Straight Cane Gait Deviations General Gait Pattern Antalgic,Decreased Stride Length,Decreased Feet Clearance,Lateral Trunk Lean, Wide Based Gait Factors Limiting Gait Function Factors Limiting Gait Function Decreased Activity Tolerance, Decreased Strength,Respiratory Distress Comments Gait Comments See mobility comments. Stair Climbing Assessment Evaluation Level of Assist On Stairs Contact Guard Assistance,1 Person Assistance Devices Stair Climbing Assistive Devices Right Railing Technique/Endurance Stair Climbing Direction Ascend and Descend Stair Climbing Technique Step to Step Number of Steps Climbed 2 Comments Stair Climbing Comments See mobility comments. PT-Balance Assessment Sitting Balance and Reactions Static Sitting Balance Ability Good Dynamic Sitting Balance Ability Good Standing Balance and Reactions Static Standing Balance Ability Good Dynamic Standing Balance Ability Good Device Used SPC M5 PT-IP Objective Assessments Start: 06/08/23 08:45 Freq: NEEDED Status: Active Protocol: Document 06/08/23 11:28 AW (Rec: 06/08/23 12:26 AW [id number]) Orientation Orientation/Cognition Level of Alertness Alert Orientation Name,Day of Week,Place, Situation Language Function Ability No Deficits Noted Safety Awareness Understands Safety Issues Memory Description No Deficits Noted Gross Range of Motion Upper Extremity ROM Assessment Within Functional Limits Lower Extremity ROM Assessment Within Functional Limits Impairments Slight limitation in dorsiflexion bilaterally secondary to habitus and BLE edema Strength Lower Extremity Strength Assessment Within Functional Limits Hip flex 5/5; ext 4/5 Knee 5/5 Ankle 5/5 Sensation Assessment Sensation Gross Sensation Right UE Impaired,Left UE Impaired,Right LE Impaired, Left LE Impaired Light Touch Impaired Proprioception (Position) Impaired Comments Sensation Comments Neuropathy affects bilateral feet and hands. Pt acknowledges needing to use vision to compensate for poor sensation in his feet. M6 PT-IP Treatment Start: 06/08/23 08:45 Freq: NEEDED Status: Active Protocol: Document 06/09/23 09:38 TS (Rec: 08/29/23 10:03 TS [id number]) Physical Therapy Treatment Education Education Provided Safety M7 PT-IP Assessment and Plan Start: 06/08/23 08:45 Freq: NEEDED Status: Active Protocol: Document 06/09/23 09:38 TS (Rec: 06/09/23 10:03 TS [id number]) PT Summary Assessment and Plan Potential Rehabilitation Potential Good Summary Impairments ROM,Transfers,Gait,Activity Tolerance Progress Towards Goals Slow Progress due to Medical Issues,Slow Progress due to Activity Tolerance Assessment Summary Pt is making slow progress with his mobility this morning due to ongoing medical issues and poor activity tolerance. Pt continues to perform sit to stand with SPC sitting in chair, he is slow to stand and requires extra effort to come into standing. He continues to ambulate SBA with SPC ~30' and continues to have SOB with short distances, requires short rest breaks to recover. He did progress to stairs CGA on step stool x2 with use of SPC and counter for handrail assist. PT continues to recommend home with assist and HH. Goals Bed Mobility Goal Independent Transfer Goal Independent,Cane Gait Goal Independent,Cane Gait Distance 40 + 40 + 40 feet Other Goals - pt to climb 2 steps with unilateral rail mod IND Days to Meet Goals 5 Frequency of Treatment Frequency Of Treatment Once a Day Treatment Plan Physical Therapy Treatment Plan Bed Mobility Training,Transfer Training,Gait Training, Therapeutic Exercise,Balance Retraining,Discharge Planning, Hot or Cold Pack Other Recommendations and Next Treatment progress mobility as tolerated Focus ; assess stair management Precautions Other Precautions monitor H&H and SpO2 Recommendations To Nursing Amount of Assist Needed Standby Assistance Discharge Recommendations PT Discharge Recommendations Home with Assistance,Home Health Transportation Needs at Discharge Private Vehicle
--- NOTE | 2023-06-09 09:36 | CM.DPC ---
DCP Continued: ENVIRONMENTAL MANAGEMENT SPECIALIST reviewed EMR. Per Triston, patient could be here anywhere from 2 to 10 days. Triston is unsure if patient will need HH when he d/c from here. Per Triston note, patient's kidney's are getting worse and provider is unsure why. Plans on switching antibiotics and consulting urology. ENVIRONMENTAL MANAGEMENT SPECIALIST called Nguyen Garza, case repairer assigned from [facility]. ([phone]). ENVIRONMENTAL MANAGEMENT SPECIALIST answered questions re: patient's d/c timeline, needs, and additional factors. Nguyen reports she will likely not be able to assess patient in hospital but patient will be reassigned to in home unit team. Nguyen will give patient a call today to check up on him. ENVIRONMENTAL MANAGEMENT SPECIALIST entered room. Patient was sitting in chair. ENVIRONMENTAL MANAGEMENT SPECIALIST updated patient on conversation with Nguyen and for him to expect call from her. Patient expressed verbal understanding he may not d/c with HH services if not ordered by provider. Plan: pending patient prognosis. Likely home. [facility] assessment to follow. Sig HH accepted if patient were to dc with HH needs. CM team will continue to follow closely. PATIENCE Leonardo
[2023-06-09] MEDS: ASPIRIN EC 81 MG TABLET PO (09:38)
[2023-06-09] MEDS: FERROUS SULFATE 325 MG TABLET PO ×3 (09:38→16:19)
[2023-06-09] MEDS: SODIUM FERRIC GLUCONAT/SUCROSE 125 MG in SODIUM CHLORIDE 0.9% 100 ML 110 MG IV (09:38)
[2023-06-09] MEDS: SENNOSIDES 8.6 MG TABLET 17.2 MG PO (09:39)
[2023-06-09] MEDS: SODIUM CHLORIDE 0.9% FLUSH 10 ML IV ×2 (09:39→20:55)
--- NOTE | 2023-06-09 11:56 | DI.US.S_ITS ---
PROCEDURE: US RENAL COMPLETE INDICATIONS: URINE RETENTION TECHNIQUE: Real-time scanning was performed of the kidneys and bladder, with image documentation. COMPARISON: [facility], CT, CT KIDNEY URETER BLADDER (KUB), 06/08/2023, 7:47. [facility], CT, CT KIDNEY URETER BLADDER (KUB), 06/06/2023, 15:54. FINDINGS: Kidneys: Kidneys are normal in size. Right kidney measures 13.6 cm long; left kidney measures 14 point cm long. Right renal cortical thickness is 2 point cm; left renal cortical thickness is 2.1 cm. Renal cortical echotexture is normal. There is mild bilateral hydronephrosis. Two echogenic foci in left kidney are compatible with renal stones measuring 4 mm and 8 mm. No suspicious solid mass lesions. Bladder: Pre the patient voided prior to the ultrasound exam Post-void residual is 125.5 mL. Pre-void images demonstrate no intraluminal masses or stones. On pre-void images, right ureteral jet is noted with color Doppler interrogation. Left ureteral jet is not visualized. (Of note, ureteral jets may not be detectable in up to 25% of cases due to insufficient differences in specific gravity between ureteral and bladder urine). Miscellaneous: No free pelvic fluid. IMPRESSION: 1. Mild hydronephrosis bilaterally. 2. There are left renal calculi. No right renal calculi identified on ultrasound. 3. 125.5 mL postvoid residual in urinary bladder. Dictated by: Hamilton Jackman M.D. on 06/09/2023 at 14:10 Approved by: Hamilton Jackman M.D. on 06/09/2023 at 14:14
[2023-06-09] MEDS: SODIUM CHLORIDE 0.9% 1,000 ML 100 ML IV (14:52)
--- NOTE | 2023-06-09 15:08 | OT.IP.TRT ---
Current Diagnoses Sepsis, unspecified organism (06/06/23) Morbid (severe) obesity due to excess calories (06/06/23) Mixed hyperlipidemia (06/06/23) Obstructive sleep apnea (adult) (pediatric) (06/06/23) Other disorders of lung (06/06/23) Acute kidney failure, unspecified (06/06/23) Urinary tract infection, site not specified (06/06/23) Hidden penis (06/06/23) Personal history of malignant neoplasm of prostate (06/06/23) Occupational Therapy Treatment Note M2 OT-IP Current Condition Start: 06/08/23 12:55 Freq: Status: Active Protocol: Document 06/08/23 12:55 CGR (Rec: 06/08/23 13:09 CGR [id number]) Occupational Therapy Current Condition Current Condition Evaluation Date 06/08/23 Treatment Diagnosis UTI Diagnosis Onset Date 06/06/23 M3 OT- IP Subjective and Pain Start: 06/08/23 12:55 Freq: Status: Active Protocol: Document 06/09/23 15:08 [facility] (Rec: 06/09/23 15:21 CCC [id number]) OT- Subjective Occupational Therapy Visit Type Type Treatment Note Visit Start Time 14:50 Visit Stop Time 15:07 Total Visit Minutes 17 Occupational Therapy Visit Comments Patient Comments Pt agreed to take to OT and pt 's sister also present in the room. Patient/Caregiver Goals To get better. OT Pain Assessment Pain When Pain Assessed At Rest Pain Present Pain Present Pain Reported M4 OT- IP ADL's Start: 06/08/23 12:55 Freq: Status: Active Protocol: Document 06/09/23 15:08 [facility] (Rec: 06/09/23 15:21 [facility] [id number]) OT [id number] Comments OT Self-Feeding Comments Not at meal time. OT ADL-Grooming Comments OT Grooming Comments not performed OT ADL-Oral Care Comments Oral Care Comments not performed OT ADL-Dressing General Eval Lower Body Dressing Ability Maximum Assistance Comments OT Dressing Comments Pt able to use the slackline operator to assist to doff his socks and needing assist to milli as sock aid too narrow for pt to try. Pt will need an extra wide socks aid. OT ADL-Toileting Comments OT Toileting Comments Pt states has to use briefs at all times as has been incontinent. Suggested to use additional inserts pads along with incontinence briefs. OT ADL-Bathing Comments OT Bathing Comments Pt states has trouble with pericare needs. Pt use a loofa and hand held shower spray to clean as best as he can. Also suggested pt use a long thin towel to sit on and then can be uses to wipe back and forth during his showering needs to help with hygiene needs. A bidet may also be helpful for his hygiene needs. Pt would benefit from bath aid at home to assist. M5 OT- IP IADL's Start: 06/08/23 12:55 Freq: Status: Active Protocol: Document 06/08/23 12:55 CGR (Rec: 06/08/23 13:09 CGR [id number]) OT-Instrumental Activities of Daily Living Deficits IADL Deficits Identified No Deficits Home Safety Awareness Awareness of Need for Assistance at Home Good Awareness Ability to Problem Solve Emergency Able to Problem Solve Situations Medication Management Medication Management No Deficits Identified Money Management Money Management No Deficits Identified Meal Preparation Meal Preparation Comments Concerns regarding pt's ability to perform Cyber Intel Planner Cyber Intel Planner Comments Concerns regarding pt's ability to perform Driving Driving Comments 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 M6 OT- IP Functional Cognition Start: 06/08/23 12:55 Freq: Status: Active Protocol: Document 06/09/23 15:08 [facility] (Rec: 06/09/23 15:21 CCC [id number]) Cognitive Factors Limiting Selfcare Function Cognitive Comments Cognitive Assessment Comments Pt intact and mainly just frustrated with his medical issues. M7 OT- IP Mobility and Balance Start: 06/08/23 12:55 Freq: Status: Active Protocol: Document 06/08/23 12:55 CGR (Rec: 06/08/23 13:09 CGR [id number]) OT-Transfer Assessment Sit to and From Stand Sit to and from Stand Standby Assistance Transfers Transfer Ability Standby Assistance Technique Transfer Destination Chair,Toilet Transfer Technique Stand Step Pivot Devices Transfer Assistive Devices Straight Cane Comments Mobility Comments Pt stood without difficulty and ambulated to toilet for toileting then returned to chair. OT- Gait Assessment Gait Gait Assistance Required: Standby Assistance Assistive Devices Assistive Device Straight Cane OT- Balance Assessment Sitting Balance and Reactions Static Sitting Balance Ability Good Dynamic Sitting Balance Ability Good M8 OT- IP Objective Assessments Start: 06/08/23 12:55 Freq: Status: Active Protocol: Document 06/08/23 12:55 CGR (Rec: 06/08/23 13:09 CGR [id number]) OT Gross Range of Motion Upper Extremity Range of Motion Assessment Within Functional Limits OT Strength Upper Extremity Strength Assessment Within Functional Limits Comments Strength Comments 4 to 4+/5 OT- Coordination Assessment Upper Extremity Finger to Nose Test Within Functional Limits Finger Tapping Test Within Functional Limits OT-Muscle Tone Assessment Muscle Tone WNL Yes OT Sensation Assessment Comments Summary Comments Pt states he has neuropathy to B hand and feet. Edema Edema Present Edema Comments BLE M9 OT- IP Assessment and Plan Start: 06/08/23 12:55 Freq: Status: Active Protocol: Document 06/09/23 15:08 [facility] (Rec: 06/09/23 15:21 CCC [id number]) OT Summary Assessment and Plan Potential Rehabilitation Potential Good Analytic Complexity at Evaluation Moderate Summary OT Impairments Pain,Strength,Balance, Functional Mobility,Grooming, Dressing,Toileting,Bathing, Toilet Transfers,Shower Transfers,Activity Tolerance Progress Towards Goals Progressing Toward Goals Assessment Summary Able to go over some LB dressing equipment needs and talk about home safety set-up at home and options. Touched base with pt on energy conservations strategies as well. To go home with assist when medically stable and would benefit from a bath aid. Goals Grooming Goal Independent Dressing Goal Independent Toileting Goal Independent Bathing Goal Independent Toilet Transfer Goal Independent Shower Transfer Goal Independent Days to Meet Goals 5 Frequency of Treatment Frequency Of Treatment Once a Day Treatment Plan OT Treatment Plan ADL Training,Functional Mobility,Patient/Family Education,Discharge Planning Discharge Recommendations OT Discharge Recommendations Home with Assistance,Home Health Transportation Needs at Discharge Private Vehicle
--- NOTE | 2023-06-09 15:38 | PC.NURSE ---
Addendum entered by Socorro Bullock R.N. 06/09/23 19:23: Dr. Bello notified of no urine output. Order received for simethicone. Addendum entered by Socorro Bullock R.N. 06/09/23 18:57: Dr Hernandez to see patient this afternoon, no new orders other than to strain all urine. Pt has not voided this shift. Pt requesting simethicone for gas pains and cramping. call center trainer MD Dr. Bello paged x2 to request med and to report lack of urine output. Awaiting call back. Original Note: Day Shift Note Dr. Goldstein in this morning to see patient, reviewed pt's lack of void since approx 0000. Urology in to see patient today per Dr. Goldstein. At 1100 bedside bladder scan attempted, unable to get an accurate read due to pt habitus/positioning challenges. Dr. Goldstein notified and order received for renal U/S. Dr. Hernandez checked in and stated he would wait until U/S results before deciding on the next course of action. Dr. Hernandez notified when results back - 125.5 ml in bladder. Of note, results of renal U/S stated that this was a postvoid residual but pt has not voided since the aforementioned 0000. This was confirmed with the pt and relayed to Dr. Goldstein and Dr. Hernandez. See their notes for details, order received to start NS at 100 ml/hr which was done. Pt updated on plan of care. Pt had several soft, large BMs today, reporting cramping and pain to abdomen, medicated with oxycodone/tylenol. Call light within reach, using appropriately to make needs known.
[2023-06-09] MEDS: ACETAMINOPHEN 325 MG TABLET 650 MG PO (16:19)
--- NOTE | 2023-06-09 17:42 | PM.CN ---
History of Present Illness Consult details Date Patient Seen: 06/09/23 Time Patient Seen: 17:42 Chief complaint: states bladder infection/trouble urinating Reason for consult: UTI Requesting provider: Vince Goldstein Narrative: The patient is a 67-year-old male that presented to [facility] ED on 06/06/2023, with complaint of fevers, malaise common generally feeling poorly. He also reported having passed some blood in his urine the night before and then had difficulty passing his urine at all since about 5:00 a.m. of the day of presentation. 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 Apparently his brother also has had a history of prostate cancer diagnosis. He describes having been told by a urologist in [place] that he as ?disappearing penis? he was later referred to [facility] and surgical intervention was not recommended due the patient's multiple comorbidities underlying pulmonary status. He presents on management with doxazosin 8 mg at . At presentation he had mild leukocytosis and a significant rise in his creatinine and BUN to 2.78 and 32 respectively from baseline of 0.91 on 03/17/2023. Urinalysis on presentation was significant for many white cells and many bacteria. On review of previous urinalyses 03/17/2023, and 12/15/2022 most recently findings were very similar suggesting a picture of chronic bacterial infection of the urine. Urine and blood culture since admission have now grown Citrobacter freundii. Initial imaging describes moderate bilateral hydronephrosis without evidence of bladder distention and several left-sided nonobstructing renal calculi measuring update mm. Hounsfield unit was measured at 625. Due to continued worsening azotemia, CT was repeated on 06/08/2023. In this instance impression was that of mild bilateral hydronephrosis not significantly changed from the prior study and again for nonobstructing stones measuring update mm in the left kidney with Hounsfield unit measurement of 617. Again no distention of the bladder noted. There is changes in the prostate consistent with previous TURP and small prostate residual volume. Likely fiducial prostate marker seen as well. I have been asked to formally consult on the patient today for ongoing concerns regarding apparent worsening renal dysfunction. Ultrasound performed at a proximally noon today identified a residual bladder volume of only 125 cc. This morning's creatinine has now risen to 3.16 and BUN 44. The patient has been voiding up until this morning but did pass some blood in urine last night. Meds Home Medications and Allergies Home Medications Medication Instructions Recorded Confirmed Type doxazosin 8 mg tablet 8 mg PO BEDTIME 06/26/20 06/06/23 History oxybutynin chloride 5 mg 5 mg PO BEDTIME 06/26/20 06/06/23 History tablet,extended release 24 hr ropinirole 2 mg tablet 2 mg PO BEDTIME 06/26/20 06/06/23 History trazodone 50 mg tablet 50 mg PO BEDTIME 06/26/20 06/06/23 History ferrous sulfate 325 mg (65 mg 325 mg PO DAILY 09/25/22 06/06/23 History iron) tablet food supplemt, lactose-reduced 1 ea PO QID #28,440 mL 02/12/23 06/06/23 Rx (Ensure Original oral liquid) aspirin 81 mg tablet 81 mg PO DAILY 03/17/23 06/06/23 History furosemide 20 mg tablet 20 mg PO BID #180 tabs 05/15/23 06/06/23 Rx potassium chloride 10 mEq 10 meq PO DAILY #90 tabs 05/15/23 06/06/23 Rx tablet,extended release doxazosin 8 mg tablet 8 mg PO ONCE PM 06/06/23 06/06/23 History Allergies Allergy/AdvReac Type Severity Reaction Status Date / Time No Known Drug Allergies Allergy Verified 06/06/23 12:39 Review of Systems Review of Systems ROS: Yes All systems reviewed with the patient and are negative except as otherwise documented Exam Vital Signs (past 8 hours): Oxygen Delivery Method Room Air Oxygen Flow Rate 0 Narrative Exam Narrative: Not repeated. Objective Labs 06/09/23 04:09 06/09/23 04:09 Labs: Laboratory Results - last 24 hr 06/08/23 06/09/23 06/09/23 04:14 04:09 04:09 Hgb 7.7 L Hct 23.6 L Haptoglobin 324 Sodium Potassium Chloride Carbon Dioxide BUN Creatinine Estimated GFR BUN/Creatinine Ratio Glucose Calcium Total Bilirubin 1.2 Conjugated Bilirubin 0.0 Unconjugated Bilirubin 0.2 AST 28 ALT 38 Alkaline Phosphatase 151 H Total Protein 8.4 H Albumin 3.5 Globulin 4.9 H Albumin/Globulin Ratio 0.7 L 06/09/23 04:09 Hgb Hct Haptoglobin Sodium 137 Potassium 5.7 H Chloride 106 Carbon Dioxide 21 L BUN 44 H Creatinine 3.16 H Estimated GFR 21 L BUN/Creatinine Ratio 13.9 Glucose 103 Calcium 8.7 Total Bilirubin Conjugated Bilirubin Unconjugated Bilirubin AST ALT Alkaline Phosphatase Total Protein Albumin Globulin Albumin/Globulin Ratio [facility] Medical History Anemia of chronic disease Chronic venous insufficiency (04/10/16) Eczema (~1996) Frequent UTI (~2017) 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 History of kidney stones History of prostate cancer (~2016) Iron deficiency Lower urinary tract symptoms Mixed hyperlipidemia Morbid obesity (08/16/15) Obstructive sleep apnea of adult (~2013) Pancreatitis (~1995) Phimosis Polyneuropathy, unspecified Primary insomnia (08/16/15) Recurrent sinusitis (~2007) Restless leg syndrome (~2013) Restrictive lung disease (08/16/15) Tinnitus (~1972) Urinary incontinence Surgical History Anesthesia History of common bile duct surgery (~1997) Status post knee surgery (~1993) Family History Brother Prostate cancer Liver cancer Father Parkinson disease Grandfather Hepatitis Grandfather History of heart disease Grandmother Cancer Social History household members: none Tobacco & Substance Use Smoking Status: Never smoker alcohol intake: current Assessment & Plan Assessment & Plan narrative: Assessment: 1. Citrobacter urosepsis. 2. ESSENCE, most likely secondary to ATN with or without element of papillary necrosis. 3. No convincing evidence of upper or lower tract obstruction. 4. Hyperkalemia. Plan: 1. Agree with current working diagnoses and management with culture directed antibiotics for 2-3 weeks and liberal IV and oral fluids. 2. Consider nephrology consultation. Hyperkalemia was additionally documented today. If this can be managed medically and no convincing clinical evidence of fluid overload than short-term dialysis likely able to be avoided.
[2023-06-09] MEDS: SIMETHICONE 80 MG TABLET PO (20:55)
[2023-06-09] MEDS: TRAZODONE 50 MG TABLET PO (20:56)
[2023-06-09] MEDS: DOXAZOSIN 2 MG TABLET 8 MG PO (20:56)
[2023-06-09] MEDS: ROPINIROLE 1 MG TABLET 2 MG PO (20:56)
[2023-06-10] VITALS (17 sets, daily range): BP systolic 153–174; BP diastolic 67–81; PULSE 81–111; RESP 20–22; TEMP 35.9–36.7; O2SAT 91–99
[2023-06-10] MEDS: CEFEPIME 1 GM in SODIUM CHLORIDE 0.9% 100 ML IV (01:09)
[2023-06-10 04:20] LABS: Hematocrit 22.7 % (41-53); Hemoglobin 7.4 g/dL (13.5-17.5)
[2023-06-10] MEDS: SIMETHICONE 80 MG TABLET PO (04:21)
[2023-06-10 04:26] LABS: BUN Creatinine Ratio 10.8 (6-22); Blood Urea Nitrogen 52 mg/dL (9-20); Calcium 8.2 mg/dL (8.4-10.2); Carbon Dioxide 18 mmol/L (22-32); Chloride 102 mmol/L (98-107); Estimated Glomerular Filt Rate 12 mL/min (>60); Glucose 113 mg/dL (80-110); HEMOLYSIS < 15 (0-50); Sodium 132 mmol/L (137-145)
[2023-06-10 04:38] LABS: Potassium 6.1 mmol/L (3.4-5.1)
--- NOTE | 2023-06-10 05:01 | PC.NURSE ---
potassium 6.1 this morning and patient unable to void despite adequate PO intake and IV fluids. [address] Diaz about potassium, no new orders.
[2023-06-10] MEDS: OXYCODONE IR 5 MG TABLET PO ×2 (05:20→16:49)
[2023-06-10] MEDS: SODIUM CHLORIDE 0.9% 1,000 ML 100 ML IV ×3 (07:00→23:48)
--- NOTE | 2023-06-10 07:46 | P.PN_ITS ---
Subjective Subjective Date Patient Seen: 06/10/23 Time Patient Seen: 07:46 Interval history: Patient with limited urine output yesterday. Slightly more since bit night overnight. Creatinine continues to rise potassium has risen as well. This morning however patient feels like something changed significantly. He emptied his bladder well over a L he feels like. It was all mostly incontinence into his bed so difficult to know exactly the volume but he did have some left by the time he did get to the bathroom so pretty confident was a large volume He feels like he is stronger he has an appetite back things are better and every single aspect as far as he is concerned Exam Vital Signs (past 8 hours): - 06/10/23 04:00 Temperature 96.6 F L Pulse Rate 91 H Respiratory Rate 20 Blood Pressure 158/72 H Pulse Oximetry 98 Oxygen Flow Rate 0 Oxygen Delivery Method Room Air Oxygen Flow Rate 0 Objective Labs 06/10/23 03:53 06/10/23 03:53 Labs: Laboratory Results - last 24 hr 06/10/23 06/10/23 03:53 03:53 Hgb 7.4 L Hct 22.7 L Sodium 132 L Potassium 6.1 H Chloride 102 Carbon Dioxide 18 L BUN 52 H Creatinine 4.80 H Estimated GFR 12 L BUN/Creatinine Ratio 10.8 Glucose 113 H Calcium 8.2 L PFSH Medical History Anemia of chronic disease Chronic venous insufficiency (04/10/16) Eczema (~1996) Frequent UTI (~2017) 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 History of kidney stones History of prostate cancer (~2016) Iron deficiency Lower urinary tract symptoms Mixed hyperlipidemia Morbid obesity (08/16/15) Obstructive sleep apnea of adult (~2013) Pancreatitis (~1995) Phimosis Polyneuropathy, unspecified Primary insomnia (08/16/15) Recurrent sinusitis (~2007) Restless leg syndrome (~2013) Restrictive lung disease (08/16/15) Tinnitus (~1972) Urinary incontinence Surgical History Anesthesia History of common bile duct surgery (~1997) Status post knee surgery (~1993) Family History Brother Prostate cancer Liver cancer Father Parkinson disease Grandfather Hepatitis Grandfather History of heart disease Grandmother Cancer Social History household members: none Smoking Status: Never smoker alcohol intake: current Assessment & Plan Assessment & Plan narrative: 1. UTI-antibiotic adjusted to different cephalosporin based on urine culture and sensitivities. 2. Acute kidney injury-now looking much more like ATN. Rising creatinine and electrolyte disturbances. I initially thought patient would need to be transferred to a center with Nephrology and potentially dialysis however his sudden transition from oliguria to significant urine output hopefully suggest the fact that he is turned the corner. He will need his electrolytes and renal function rechecked this afternoon of course and unless that is dramatically worse will plan to keep him here at this time. Hopefully it will be slightly better. 3. Anemia-numbers are overall relatively stable. 4. Sleep apnea-continue with CPAP at least overnight 5. Enterobacter bacteremia-patient on appropriate broad-spectrum antibiotics with cephalosporin which should be appropriate for treatment. 6. Sepsis-resolved 7. Obesity hypoventilation syndrome/cor pulmonale/restrictive lung disease- patient with significant pulmonary issues almost certainly secondary almost entirely to his morbid obesity. Continue with CPAP as above and supplemental oxygen as necessary to maintain oxygen saturation at 90-92+% 8. Weakness/obesity-patient when seen by Physical therapy. Patient appears to be pretty independent with a cane, and has done okay regarding hypoxia with activity. Continue with skilled therapies. Will likely be able to return home when renal function improves. As above patient has renal function has become the biggest issue. I think he has an element of ATN which hopefully his switch from oliguria to more urine output is a sign that things are improving. He does need to continue on IV fluids. Quality VTE Deep Vein Thrombosis/Pulmonary Embolism Present on Admission: No
[2023-06-10] MEDS: ASPIRIN EC 81 MG TABLET PO (08:11)
[2023-06-10] MEDS: FERROUS SULFATE 325 MG TABLET PO ×3 (08:11→16:50)
[2023-06-10] MEDS: SODIUM CHLORIDE 0.9% FLUSH 10 ML IV ×2 (08:11→21:05)
[2023-06-10] MEDS: SODIUM POLYSTYRENE SULFON/SORB 15 GM/60 ML CUP 30 GM PO (08:11)
--- NOTE | 2023-06-10 13:30 | PT-IP ANOTE ---
Pt refused PT this afternoon. Pt reports wanting to rest due to having a rough 24 hours. Will check back in tomorrow.
[2023-06-10] MEDS: CEFEPIME IV (13:43)
[2023-06-10] MEDS: SODIUM CHLORIDE 0.9% IV (13:43)
--- NOTE | 2023-06-10 14:22 | OT.IPNOTE ---
Pt had a rough night, wanting to rest, and therefore to check on the pt tomorrow.
[2023-06-10] MEDS: ACETAMINOPHEN 325 MG TABLET 650 MG PO (15:55)
[2023-06-10 17:11] LABS: BUN Creatinine Ratio 11.9 (6-22); Blood Urea Nitrogen 49 mg/dL (9-20); Calcium 8.4 mg/dL (8.4-10.2); Carbon Dioxide 19 mmol/L (22-32); Chloride 108 mmol/L (98-107); Estimated Glomerular Filt Rate 15 mL/min (>60); Glucose 103 mg/dL (80-110); HEMOLYSIS < 15 (0-50); Sodium 136 mmol/L (137-145)
[2023-06-10 17:15] LABS: Potassium 5.8 mmol/L (3.4-5.1)
--- NOTE | 2023-06-10 18:02 | PM.PN.1 ---
Subjective Subjective Date Patient Seen: 06/10/23 Time Patient Seen: 07:20 Interval history: The patient overall had a restful night and a very large overall urine output estimated at at least 1 L per discussion with his primary nourished. Patient was sleeping when I visited. Hyperkalemia has worsened a bit since yesterday and potassium is now 6.1. Creatinine has risen further from 3.16-4.80 this morning and commensurate rise in BUN to 52. GFR has dropped significantly from estimated 21-12. Exam Vital Signs (past 8 hours): - 06/10/23 16:03 06/10/23 16:04 06/10/23 16:04 Temperature 97.8 F Pulse Rate Respiratory Rate Blood Pressure 153/75 H Pulse Oximetry 93 96 06/10/23 12:00 06/10/23 16:00 Temperature Pulse Rate 90 94 H Respiratory Rate 22 21 Blood Pressure Pulse Oximetry Oxygen Delivery Method Room Air Oxygen Flow Rate 0 Narrative Exam Narrative: Not repeated. Objective Labs 06/10/23 03:53 06/10/23 16:52 Labs: Laboratory Results - last 24 hr 06/10/23 06/10/23 06/10/23 03:53 03:53 16:52 Hgb 7.4 L Hct 22.7 L Sodium 132 L 136 L Potassium 6.1 H 5.8 H Chloride 102 108 H Carbon Dioxide 18 L 19 L BUN 52 H 49 H Creatinine 4.80 H 4.12 H Estimated GFR 12 L 15 L BUN/Creatinine Ratio 10.8 11.9 Glucose 113 H 103 Calcium 8.2 L 8.4 PFSH Medical History Anemia of chronic disease Chronic venous insufficiency (04/10/16) Eczema (~1996) Frequent UTI (~2017) 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 History of kidney stones History of prostate cancer (~2016) Iron deficiency Lower urinary tract symptoms Mixed hyperlipidemia Morbid obesity (08/16/15) Obstructive sleep apnea of adult (~2013) Pancreatitis (~1995) Phimosis Polyneuropathy, unspecified Primary insomnia (08/16/15) Recurrent sinusitis (~2007) Restless leg syndrome (~2013) Restrictive lung disease (08/16/15) Tinnitus (~1972) Urinary incontinence Surgical History Anesthesia History of common bile duct surgery (~1997) Status post knee surgery (~1993) Family History Brother Prostate cancer Liver cancer Father Parkinson disease Grandfather Hepatitis Grandfather History of heart disease Grandmother Cancer Social History household members: none Smoking Status: Never smoker alcohol intake: current Assessment & Plan Assessment & Plan narrative: 1. Enterobacter urosepsis. 2. Likely ATN. Estimated voided volume is assign of excellent prognosis and perhaps he go now reverse clinical and laboratory course. 3. History of prostate cancer-remotely with subsequent documented undetectable PSA over many years. 4. Left nephrolithiasis. No clear clinical or radiographic proof that stone passage has explained any presenting or ongoing clinical dilemmas or management. Plan: 1. Agree with current management and impression medical management and prognosis. 2. No current structural or obstructive uropathy requiring opinion or intervention. We will sign off. Quality VTE Deep Vein Thrombosis/Pulmonary Embolism Present on Admission: No
[2023-06-10] MEDS: SODIUM ZIRCONIUM CYCLOSILICATE 10 GM POWD.PACK PO (18:29)
[2023-06-10] MEDS: DOXAZOSIN 2 MG TABLET 8 MG PO (21:04)
[2023-06-10] MEDS: ROPINIROLE 1 MG TABLET 2 MG PO (21:04)
[2023-06-10] MEDS: TRAZODONE 50 MG TABLET PO (21:04)
[2023-06-11] VITALS (7 sets, daily range): BP systolic 139–161; BP diastolic 65–75; PULSE 88–94; RESP 17–22; TEMP 36.3–36.6; O2SAT 94–98
[2023-06-11] MEDS: CEFEPIME IV ×2 (01:22→09:35)
[2023-06-11] MEDS: SODIUM CHLORIDE 0.9% IV ×2 (01:22→09:35)
[2023-06-11 05:23] LABS: BUN Creatinine Ratio 13.4 (6-22); Blood Urea Nitrogen 45 mg/dL (9-20); Calcium 8.3 mg/dL (8.4-10.2); Carbon Dioxide 18 mmol/L (22-32); Chloride 110 mmol/L (98-107); Estimated Glomerular Filt Rate 19 mL/min (>60); Glucose 103 mg/dL (80-110); HEMOLYSIS < 15 (0-50); Potassium 5.2 mmol/L (3.4-5.1); Sodium 138 mmol/L (137-145)
--- NOTE | 2023-06-11 07:14 | P.PN_ITS ---
Subjective Subjective Date Patient Seen: 06/11/23 Time Patient Seen: 07:14 Interval history: Patient making more urine again. Renal function finally began to improve yesterday. Continues to be improved even further this morning Did not participate with physical therapy yesterday Says today he feels tired his biggest issue is difficult to getting adequate sl eep. Everything else seems better. Still having cranberry colored urine. Exam Vital Signs (past 8 hours): - 06/11/23 00:00 06/11/23 04:00 Temperature 97.6 F 97.8 F Pulse Rate 94 H 88 Respiratory Rate 17 22 Blood Pressure 161/74 H 159/67 H Pulse Oximetry 94 95 Oxygen Flow Rate 0 0 Oxygen Delivery Method Room Air Oxygen Flow Rate 0 Objective Labs 06/10/23 03:53 06/11/23 04:10 Labs: Laboratory Results - last 24 hr 06/10/23 06/11/23 16:52 04:10 Sodium 136 L 138 Potassium 5.8 H 5.2 H Chloride 108 H 110 H Carbon Dioxide 19 L 18 L BUN 49 H 45 H Creatinine 4.12 H 3.35 H Estimated GFR 15 L 19 L BUN/Creatinine Ratio 11.9 13.4 Glucose 103 103 Calcium 8.4 8.3 L PFSH Medical History Anemia of chronic disease Chronic venous insufficiency (04/10/16) Eczema (~1996) Frequent UTI (~2017) 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 History of kidney stones History of prostate cancer (~2016) Iron deficiency Lower urinary tract symptoms Mixed hyperlipidemia Morbid obesity (08/16/15) Obstructive sleep apnea of adult (~2013) Pancreatitis (~1995) Phimosis Polyneuropathy, unspecified Primary insomnia (08/16/15) Recurrent sinusitis (~2007) Restless leg syndrome (~2013) Restrictive lung disease (08/16/15) Tinnitus (~1972) Urinary incontinence Surgical History Anesthesia History of common bile duct surgery (~1997) Status post knee surgery (~1993) Family History Brother Prostate cancer Liver cancer Father Parkinson disease Grandfather Hepatitis Grandfather History of heart disease Grandmother Cancer Social History household members: none Smoking Status: Never smoker alcohol intake: current Assessment & Plan Assessment & Plan narrative: 1. UTI-continue parental antibiotics, should probably increase dose given improvement in renal function 2. Acute kidney injury-now clearly improving. Renal function on 2 successive tests is improved. If he continues to improve over the next 24 hours and continues with adequate urine output than I think he can likely be discharged home. I would assume this is an element of ATN probably on the basis of his infection and maybe some degree of mechanical obstruction, given the hydronephrosis seen on imaging 3. Anemia-numbers have been stable. Did not choose to rechecked today. Has received parental iron continues on oral iron 4. Sleep apnea-continue with CPAP at least overnight 5. Citrobacter bacteremia-patient on appropriate broad-spectrum antibiotics with cephalosporin which should be appropriate for treatment. Plan for outpatient treatment to complete 14 days total when discharged 6. Sepsis-resolved 7. Obesity hypoventilation syndrome/cor pulmonale/restrictive lung disease-jaquan ent with significant pulmonary issues almost certainly secondary almost entirely to his morbid obesity. Continue with CPAP as above and supplemental oxygen as necessary to maintain oxygen saturation at 90-92+% 8. Weakness/obesity-patient when seen by Physical therapy. Patient appears to be pretty independent with a cane, and has done okay regarding hypoxia with activity. Continue with skilled therapies. Will likely be able to return home when renal function improves. Patient is now begun to improve I think in all facets. Plan for discharge in the next 24 hours or so. Quality VTE Deep Vein Thrombosis/Pulmonary Embolism Present on Admission: No
[2023-06-11] MEDS: OXYCODONE IR 5 MG TABLET PO ×3 (08:06→17:26)
[2023-06-11] MEDS: ASPIRIN EC 81 MG TABLET PO (08:06)
[2023-06-11] MEDS: FERROUS SULFATE 325 MG TABLET PO ×3 (08:06→17:26)
[2023-06-11] MEDS: SODIUM CHLORIDE 0.9% FLUSH 10 ML IV ×2 (08:16→20:27)
[2023-06-11] MEDS: SODIUM CHLORIDE 0.9% 1,000 ML 100 ML IV (09:50)
--- NOTE | 2023-06-11 09:55 | PT.IPTN ---
Current Diagnoses Sepsis, unspecified organism (06/06/23) Morbid (severe) obesity due to excess calories (06/06/23) Mixed hyperlipidemia (06/06/23) Obstructive sleep apnea (adult) (pediatric) (06/06/23) Other disorders of lung (06/06/23) Acute kidney failure, unspecified (06/06/23) Urinary tract infection, site not specified (06/06/23) Hidden penis (06/06/23) Personal history of malignant neoplasm of prostate (06/06/23) Physical Therapy Treatment Note M2 PT-IP Current Condition Start: 06/08/23 08:45 Freq: NEEDED Status: Active Protocol: Document 06/08/23 11:28 AW (Rec: 06/08/23 12:26 AW [id number]) Physical Therapy Current Condition Current Condition Evaluation Date 06/08/23 Treatment Diagnosis UTI, ESSENCE, anemia, bacteremia, impaired mobility Onset Date 06/06/23 M3 PT-IP Subjective Start: 06/08/23 08:45 Freq: NEEDED Status: Active Protocol: Document 06/11/23 10:34 TS (Rec: 06/11/23 10:47 TS [id number]) Subjective Physical Therapy Visit Type Type Treatment Note Visit Start Time 09:55 Visit Stop Time 10:15 Total Visit Minutes 20 Number of [employer] Visits 2 Physical Therapy Visit Comments Patient Comments Pt continues to report feeling tired and not getting much sleep, is agreeable to PT. Patient Goals Return home, avoid SNF if possible. M4 PT-IP Mobility and Gait Start: 06/08/23 08:45 Freq: NEEDED Status: Active Protocol: Document 06/11/23 10:34 TS (Rec: 06/11/23 10:47 TS [id number]) PT-Transfer Assessment Sit to and From Stand Sit to and from Stand Standby Assistance Equipment Transfer Assistive Device Front Wheeled Walker Comments Mobility Comments Pt found resting in chair, Spo2 96% on RA. Sit to stand w /FWW SBA with heavy UE assist and uses momentum to stand. He ambulated ~60' in room SBA w/ FWW and a slow step thru gait, pt fatigued and requested to rest in chair before use of steps. Pt is SOB after gait, Spo2 91%, HR 130's, recovered to 96% on RA and HR to 102 after ~2mins. Sit to stand x1 from SBA, pt continues to lean heavily on FWW to stand. He performed stairs SBA x3 with RUE support, had x1 buckling on L side, did not require assist to recover. Pt was left back in chair with call light and tray table nearby, all needs met. Gait Assessment Gait Gait Assistance Required: Standby Assistance Distance (Feet) 60 Assistive Devices Assistive Device Front Wheeled Walker Gait Deviations General Gait Pattern Antalgic,Decreased Stride Length,Decreased Feet Clearance,Lateral Trunk Lean, Wide Based Gait Factors Limiting Gait Function Factors Limiting Gait Function Decreased Activity Tolerance, Decreased Strength,Respiratory Distress Comments Gait Comments See mobility comments. Stair Climbing Assessment Evaluation Level of Assist On Stairs Standby Assistance Devices Stair Climbing Assistive Devices Right Railing Technique/Endurance Stair Climbing Direction Ascend and Descend Stair Climbing Technique Step to Step Number of Steps Climbed 3 Comments Stair Climbing Comments See mobility comments. PT-Balance Assessment Sitting Balance and Reactions Static Sitting Balance Ability Good Dynamic Sitting Balance Ability Good Standing Balance and Reactions Static Standing Balance Ability Good Dynamic Standing Balance Ability Good Device Used FWW M5 PT-IP Objective Assessments Start: 06/08/23 08:45 Freq: NEEDED Status: Active Protocol: Document 06/08/23 11:28 AW (Rec: 06/08/23 12:26 AW [id number]) Orientation Orientation/Cognition Level of Alertness Alert Orientation Name,Day of Week,Place, Situation Language Function Ability No Deficits Noted Safety Awareness Understands Safety Issues Memory Description No Deficits Noted Gross Range of Motion Upper Extremity ROM Assessment Within Functional Limits Lower Extremity ROM Assessment Within Functional Limits Impairments Slight limitation in dorsiflexion bilaterally secondary to habitus and BLE edema Strength Lower Extremity Strength Assessment Within Functional Limits Hip flex 5/5; ext 4/5 Knee 5/5 Ankle 5/5 Sensation Assessment Sensation Gross Sensation Right UE Impaired,Left UE Impaired,Right LE Impaired, Left LE Impaired Light Touch Impaired Proprioception (Position) Impaired Comments Sensation Comments Neuropathy affects bilateral feet and hands. Pt acknowledges needing to use vision to compensate for poor sensation in his feet. M6 PT-IP Treatment Start: 06/08/23 08:45 Freq: NEEDED Status: Active Protocol: Document 06/11/23 10:34 TS (Rec: 06/11/23 10:47 TS [id number]) Physical Therapy Treatment Education Education Provided Safety M7 PT-IP Assessment and Plan Start: 06/08/23 08:45 Freq: NEEDED Status: Active Protocol: Document 06/11/23 10:34 TS (Rec: 06/11/23 10:47 TS [id number]) PT Summary Assessment and Plan Potential Rehabilitation Potential Good Summary Impairments ROM,Transfers,Gait,Activity Tolerance Progress Towards Goals Slow Progress due to Medical Issues,Slow Progress due to Activity Tolerance Assessment Summary Pt made some progress with his mobility but remains limited by ongoing medical issues and activity tolerance. He progressed his gait to ~60'SBA w/FWW, became SOB and required a seated rest break. Pt's HR increased to 130's and Spo2 desat to 91% on RA, pt recovers after ~2mins. He progressed his stairs to x3 SBA, did have one instance of a slight buckle on L side with step, did not require assist to recover balance. PT continues to recommend home with assist and HHPT. Goals Bed Mobility Goal Independent Transfer Goal Independent,Cane Gait Goal Independent,Cane Gait Distance 40 + 40 + 40 feet Other Goals - pt to climb 2 steps with unilateral rail mod IND Days to Meet Goals 5 Frequency of Treatment Frequency Of Treatment Once a Day Treatment Plan Physical Therapy Treatment Plan Bed Mobility Training,Transfer Training,Gait Training, Therapeutic Exercise,Balance Retraining,Discharge Planning, Hot or Cold Pack Other Recommendations and Next Treatment progress mobility as tolerated Focus ; assess stair management Precautions Other Precautions monitor H&H and SpO2 Recommendations To Nursing Amount of Assist Needed Standby Assistance Discharge Recommendations PT Discharge Recommendations Home with Assistance,Home Health Transportation Needs at Discharge Private Vehicle
[2023-06-11] MEDS: ACETAMINOPHEN 325 MG TABLET 650 MG PO (11:08)
--- NOTE | 2023-06-11 14:07 | OT.IP.TRT ---
Current Diagnoses Sepsis, unspecified organism (06/06/23) Morbid (severe) obesity due to excess calories (06/06/23) Mixed hyperlipidemia (06/06/23) Obstructive sleep apnea (adult) (pediatric) (06/06/23) Other disorders of lung (06/06/23) Acute kidney failure, unspecified (06/06/23) Urinary tract infection, site not specified (06/06/23) Hidden penis (06/06/23) Personal history of malignant neoplasm of prostate (06/06/23) Occupational Therapy Treatment Note M2 OT-IP Current Condition Start: 06/08/23 12:55 Freq: Status: Active Protocol: Document 06/08/23 12:55 [facility] (Rec: 06/08/23 13:09 [facility] [id number]) Occupational Therapy Current Condition Current Condition Evaluation Date 06/08/23 Treatment Diagnosis UTI Diagnosis Onset Date 06/06/23 M3 OT- IP Subjective and Pain Start: 06/08/23 12:55 Freq: Status: Active Protocol: Document 06/11/23 14:40 [facility] (Rec: 06/11/23 14:51 [facility] [id number]) OT- Subjective Occupational Therapy Visit Type Type Treatment Note Visit Start Time 13:40 Visit Stop Time 15:07 Total Visit Minutes 27 Occupational Therapy Visit Comments Patient Comments Pt very tired and nodding off while seated in the recliner. Patient/Caregiver Goals TO get better. OT Pain Assessment Pain When Pain Assessed At Rest Pain Present Pain Present Pain Reported M6 OT- IP Functional Cognition Start: 06/08/23 12:55 Freq: Status: Active Protocol: Document 06/09/23 15:08 [facility] (Rec: 06/09/23 15:21 [facility] [id number]) Cognitive Factors Limiting Selfcare Function Cognitive Comments Cognitive Assessment Comments Pt intact and mainly just frustrated with his medical issues. M7 OT- IP Mobility and Balance Start: 06/08/23 12:55 Freq: Status: Active Protocol: Document 06/11/23 14:40 [facility] (Rec: 06/11/23 14:51 [facility] [id number]) OT-Transfer Assessment Sit to and From Stand Sit to and from Stand Standby Assistance Transfers Transfer Ability Standby Assistance Technique Transfer Destination Chair Transfer Technique Stand Step Pivot Devices Transfer Assistive Devices Straight Cane Comments Mobility Comments Pt able to stand with SPC in order to help change out his recliner in the room as his current recliner does not recline back. Able to teach pt how to recline the recliner on his own, however pt not able to get it back to a sitting position after being reclined. Informed pt to use his call light to have assist to come to sit back up.. CAll light place next to the pt. Also informed his nurse that pt will need assist to sit up in the recliner and be mindful to watch pt as pt is use to getting up to use the bathroom on his own with SPC. OT- Balance Assessment Sitting Balance and Reactions Static Sitting Balance Ability Good Dynamic Sitting Balance Ability Good Standing Balance and Reactions Static Standing Balance Ability Fair Dynamic Standing Balance Ability Fair M8 OT- IP Objective Assessments Start: 06/08/23 12:55 Freq: Status: Active Protocol: Document 06/08/23 12:55 [facility] (Rec: 06/08/23 13:09 [facility] [id number]) OT Gross Range of Motion Upper Extremity Range of Motion Assessment Within Functional Limits OT Strength Upper Extremity Strength Assessment Within Functional Limits Comments Strength Comments 4 to 4+/5 OT- Coordination Assessment Upper Extremity Finger to Nose Test Within Functional Limits Finger Tapping Test Within Functional Limits OT-Muscle Tone Assessment Muscle Tone WNL Yes OT Sensation Assessment Comments Summary Comments Pt states he has neuropathy to B hand and feet. Edema Edema Present Edema Comments BLE M9 OT- IP Assessment and Plan Start: 06/08/23 12:55 Freq: Status: Active Protocol: Document 06/11/23 14:40 [facility] (Rec: 06/11/23 14:51 [facility] [id number]) OT Summary Assessment and Plan Potential Rehabilitation Potential Good Analytic Complexity at Evaluation Moderate Summary OT Impairments Pain,Strength,Balance, Functional Mobility,Grooming, Dressing,Toileting,Bathing, Toilet Transfers,Shower Transfers,Activity Tolerance Progress Towards Goals Progressing Toward Goals Assessment Summary Able to give pt information on energy conservation strategies and talk about getting his friends together to be able to assist with his needs. Pt realizes that he will be needing assist at home . Goals Grooming Goal Independent Dressing Goal Independent Toileting Goal Independent Bathing Goal Independent Toilet Transfer Goal Independent Shower Transfer Goal Independent Days to Meet Goals 4 Frequency of Treatment Frequency Of Treatment Once a Day Treatment Plan OT Treatment Plan ADL Training,Functional Mobility,Patient/Family Education,Discharge Planning Discharge Recommendations OT Discharge Recommendations Home with Assistance,Home Health Transportation Needs at Discharge Private Vehicle
--- NOTE | 2023-06-11 16:46 | CM.DPC ---
DCP Continued: BRIDGE ENGINEER reviewed EMR. Per nursing staff, patient likely to d/c home tomorrow. Patient reports provider also told him home tomorrow. Patient had questions regarding [facility]ILY caregiving assessment. Patient has yet to hear from them. Patient understands he may not d/c home with HH. BRIDGE ENGINEER asked patient if he would like the information for meals on wheels. Patient reports his friend is a transit driver for [employer] and will contact him if he's interested. Plan: d/c home when medically stable, potentially tomorrow. Likely transport with [facility]. CM team will contact Paige Garza [facility] head worker to update her on d/c timeline. CM team will follow closely for additional needs. PATIENCE Leonardo
[2023-06-11] MEDS: ROPINIROLE 1 MG TABLET 2 MG PO (20:26)
[2023-06-11] MEDS: DOXAZOSIN 2 MG TABLET 8 MG PO (20:26)
[2023-06-11] MEDS: TRAZODONE 50 MG TABLET PO (20:26)
--- NOTE | 2023-06-11 20:38 | PC.NURSE ---
Addendum entered by Brittany Awad R.N. 06/12/23 06:30: 0630- Discussed bladder scan result with Dr. Duran. Request to restart IV fluids deferred to Dr. Goldstein who come on in 30minutes. Will monitor. Addendum entered by Brittany Awad R.N. 06/12/23 06:19: 0600- Bladder scanned result 116 mls. Will monitor. Addendum entered by Brittany Awad R.N. 06/12/23 02:59: 0300- Patient has been up to try and void x3. It's noted in chart that patient will go long periods of time without voiding. Patient states he is not uncomfortable and does not have any pain. Patient is up to the recliner with bipap on trying to sleep. Will monitor. Original Note: 2029- IV antibiotic delayed due to Pyxis not allowing removal. Night pharmacy notified and they attempted to reenter medication. This failed. mobile [facility] pharmacy to come in and retrieve needed medication.
[2023-06-11] MEDS: CEFEPIME 1 GM in SODIUM CHLORIDE 0.9% 100 ML IV (21:18)
[2023-06-12 06:00] VITALS: BP 148/65; PULSE 118; RESP 20; TEMP 37.1; O2SAT 99
[2023-06-12 06:51] LABS: BUN Creatinine Ratio 9.9 (6-22); Blood Urea Nitrogen 51 mg/dL (9-20); Calcium 7.9 mg/dL (8.4-10.2); Carbon Dioxide 17 mmol/L (22-32); Chloride 109 mmol/L (98-107); Estimated Glomerular Filt Rate 12 mL/min (>60); Glucose 120 mg/dL (80-110); HEMOLYSIS < 15 (0-50); Sodium 137 mmol/L (137-145)
[2023-06-12 06:56] LABS: Potassium 5.5 mmol/L (3.4-5.1)
--- NOTE | 2023-06-12 07:11 | P.PN_ITS ---
Subjective Subjective Date Patient Seen: 06/12/23 Time Patient Seen: 07:11 Interval history: Patient again without any significant urine production or least voiding since mid morning yesterday. Bedside bladder scan done this morning shows just over 100 cc in bladder. Creatinine this morning has gone the wrong direction back up now over 5. IV fluids were paused overnight over concern about bladder distention Exam Vital Signs (past 8 hours): - 06/12/23 06:00 Temperature 98.8 F Pulse Rate 118 H Respiratory Rate 20 Blood Pressure 148/65 H Pulse Oximetry 99 Oxygen Flow Rate 0 Oxygen Delivery Method BiPAP Oxygen Flow Rate 0 Objective Labs 06/10/23 03:53 06/12/23 05:45 Labs: Laboratory Results - last 24 hr 06/12/23 05:45 Sodium 137 Potassium 5.5 H Chloride 109 H Carbon Dioxide 17 L BUN 51 H Creatinine 5.13 H Estimated GFR 12 L BUN/Creatinine Ratio 9.9 Glucose 120 H Calcium 7.9 L PFSH Medical History Anemia of chronic disease Chronic venous insufficiency (04/10/16) Eczema (~1996) Frequent UTI (~2017) 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 History of kidney stones History of prostate cancer (~2016) Iron deficiency Lower urinary tract symptoms Mixed hyperlipidemia Morbid obesity (08/16/15) Obstructive sleep apnea of adult (~2013) Pancreatitis (~1995) Phimosis Polyneuropathy, unspecified Primary insomnia (08/16/15) Recurrent sinusitis (~2007) Restless leg syndrome (~2013) Restrictive lung disease (08/16/15) Tinnitus (~1972) Urinary incontinence Surgical History Anesthesia History of common bile duct surgery (~1997) Status post knee surgery (~1993) Family History Brother Prostate cancer Liver cancer Father Parkinson disease Grandfather Hepatitis Grandfather History of heart disease Grandmother Cancer Social History household members: none Smoking Status: Never smoker alcohol intake: current Assessment & Plan Assessment & Plan narrative: 1. UTI-continue parental antibiotics, should probably reduced dose again given his worsening renal function. 2. Acute kidney injury-patient is now showing worsening renal function again. Etiology of this is not at all clear. Does not really fit and ATN pattern is more consistent with an obstructive pattern, but every time we have looked his bladder has been decompressed etcetera. I think we need to continue with IV fluids and I think patient needs to be transferred to a tertiary care center with Nephrology and urology potentially dialysis capabilities. I am going to have formal ultrasound again re-evaluate his bladder since that se ems to be the best way to get an accurate assessment of whether not he is got bladder outlet obstruction or not. That would be the most reasonable answer as to why his creatinine has bumped back up and why he is not voided. In any event he has persistent hematuria and I think he requires cystoscopy to evaluate that. Unfortunately Urology here has signed off and has not been willing to consider that as an option. All the more reason therefore to transfer him to an alternative center with higher level of care 3. Anemia-numbers have been stable. Did not choose to recheck it today. Has received parental iron continues on oral iron 4. Sleep apnea-continue with CPAP at least overnight 5. Citrobacter bacteremia-patient on appropriate broad-spectrum antibiotics with cephalosporin which should be appropriate for treatment. Plan for outpatient treatment to complete 14 days total when discharged 6. Sepsis-resolved 7. Obesity hypoventilation syndrome/cor pulmonale/restrictive lung disease- patient with significant pulmonary issues almost certainly secondary almost entirely to his morbid obesity. Continue with CPAP as above and supplemental oxygen as necessary to maintain oxygen saturation at 90-92+% 8. Weakness/obesity-patient when seen by Physical therapy. Patient appears to b e pretty independent with a cane, and has done okay regarding hypoxia with activity. Continue with skilled therapies. Will likely be able to return home when renal function improves. Patient has gone the wrong direction in the last 24 hours. Renal function is much worse again. Etiology remains unclear in my opinion. As above I think he needs placement in a tertiary care facility with the ability to do dialysis as necessary, as well as nephrology and urology services. Quality VTE Deep Vein Thrombosis/Pulmonary Embolism Present on Admission: No
--- NOTE | 2023-06-12 08:25 | DI.US.S_ITS ---
PROCEDURE: US RENAL COMPLETE INDICATIONS: BLADDER OUTLET OBSTRUCTION TECHNIQUE: Real-time scanning was performed of the kidneys and bladder, with image documentation. COMPARISON: [facility], CT, CT KIDNEY URETER BLADDER (KUB), 06/08/2023, 7:47. [facility], US, US RENAL COMPLETE, 06/09/2023, 12:18. FINDINGS: Degree challenging study due to patient body habitus and poor acoustic penetration. Kidneys: Kidneys are normal in size. Right kidney measures 13.2 cm long; left kidney measures 12.8 cm long. Right renal cortical thickness is 3.4 cm; left renal cortical thickness is 2.9 cm. Renal cortical echotexture is normal. A 1.7 cm left renal calculus versus adjacent calculi visualized. Mild to moderate right renal hydronephrosis. No left hydronephrosis. No suspicious solid mass lesions. Bladder: Pre-void bladder volume is 648 mL. Patient unable to void at the time of the exam. Pre-void images demonstrate no intraluminal masses or stones. On pre-void images, no ureteral jets are noted with color Doppler interrogation. (Of note, ureteral jets may not be detectable in up to 25% of cases due to insufficient differences in specific gravity between ureteral and bladder urine). Miscellaneous: No free pelvic fluid. IMPRESSION: 1. Bladder volume 648 mL and patient unable to void at the time of the exam. 2. [id number] right hydronephrosis. No definite left hydronephrosis is seen, although the left kidney is poorly visualized. 3. Left renal calculi. Approved by: Dale Simental M.D. on 06/12/2023 at 9:44
[2023-06-12] MEDS: FERROUS SULFATE 325 MG TABLET PO ×3 (08:29→16:24)
[2023-06-12] MEDS: ASPIRIN EC 81 MG TABLET PO (08:29)
[2023-06-12] MEDS: SODIUM CHLORIDE 0.9% FLUSH 10 ML IV (08:29)
--- NOTE | 2023-06-12 09:03 | PT-IP ANOTE ---
Pt refused to work with PT this morning and doesn't think he will want to work with PT for the rest of the day. He is having pain and has had a rough 24 hours. Will check back in tomorrow.
[2023-06-12] MEDS: CEFEPIME 0.5 GM in SODIUM CHLORIDE 0.9% 100 ML IV (09:48)
[2023-06-12] MEDS: OXYCODONE IR 5 MG TABLET PO ×2 (11:16→16:19)
[2023-06-12] MEDS: SODIUM ZIRCONIUM CYCLOSILICATE 10 GM POWD.PACK PO ×2 (11:30→15:00)
[2023-06-12 12:00] VITALS: BP 135/77; PULSE 82; RESP 19; TEMP 37.1; O2SAT 98
--- NOTE | 2023-06-12 12:25 | PM.CN ---
History of Present Illness Consult details Date Patient Seen: 06/12/23 Time Patient Seen: 10:15 Chief complaint: states bladder infection/trouble urinating Reason for consult: Urine retention, worsening renal function, morbid obesity, buried penis, ph Requesting provider: Vince Goldstein Narrative: I was asked to see this 67-year-old male who had been seen previously by Dr. Goldstein for again worsening renal function, urinary retention and guidance in this very difficult situation. The patient had previously been seen and consulted on by Dr. Hernandez who signed off it appears on 06/10/2023 as there had been improvement in the patient's creatinine. The patient has had since this morning worsening creatinine a dramatically decreased GFR what appears to be over 600 cc in his bladder and an inability to void. The patient's situation is longstanding and has been viewed by multiple urologist. This is dating back to at least 2021. Patient is morbidly obese, has a buried penis, has what appears to be phimosis he reports he is uncircumcised. The patient's chart was reviewed and there been similar episodes. The patient had been referred to the [facility] and in discussion with the patient they reportedly told him because of his lungs that there was ?nothing they could do without and on acceptable risk of ?. At this point the patient appears comfortable and the falling maneuvers were attempted. The patient is morbidly obese has what appears to be some degree of anasarca. He has a very phimotic prepuce and multiple attempts with speculum to dilate to blindly pass a catheter all met with failure. Patient did have expression of what appeared to be some blood-tinged urine but not a significant amount. Given this failure please see the assessment below. The attempts and failure were discussed with Dr. Goldstein via phone. This is a very unfortunate in difficult situation. Procedural maneuvers: Attempted to access the buried penis with various sizes a speculum. Attempted to dilate the phimosis with hemostat and attempted to blindly catheterize the patient all of which met with failure. Meds Home Medications and Allergies Home Medications Medication Instructions Recorded Confirmed Type doxazosin 8 mg tablet 8 mg PO BEDTIME 06/26/20 06/06/23 History oxybutynin chloride 5 mg 5 mg PO BEDTIME 06/26/20 06/06/23 History tablet,extended release 24 hr ropinirole 2 mg tablet 2 mg PO BEDTIME 06/26/20 06/06/23 History trazodone 50 mg tablet 50 mg PO BEDTIME 06/26/20 06/06/23 History ferrous sulfate 325 mg (65 mg 325 mg PO DAILY 09/25/22 06/06/23 History iron) tablet food supplemt, lactose-reduced 1 ea PO QID #28,440 mL 02/12/23 06/06/23 Rx (Ensure Original oral liquid) aspirin 81 mg tablet 81 mg PO DAILY 03/17/23 06/06/23 History furosemide 20 mg tablet 20 mg PO BID #180 tabs 05/15/23 06/06/23 Rx potassium chloride 10 mEq 10 meq PO DAILY #90 tabs 05/15/23 06/06/23 Rx tablet,extended release doxazosin 8 mg tablet 8 mg PO ONCE PM 06/06/23 06/06/23 History Allergies Allergy/AdvReac Type Severity Reaction Status Date / Time No Known Drug Allergies Allergy Verified 06/06/23 12:39 Review of Systems Review of Systems ROS: Yes All systems reviewed with the patient and are negative except as otherwise documented (And problem list) Exam Vital Signs (past 8 hours): - 06/12/23 06:00 06/12/23 07:00 Temperature 98.8 F Pulse Rate 118 H Respiratory Rate 20 Blood Pressure 148/65 H Pulse Oximetry 99 Oxygen Delivery Method Room Air Oxygen Flow Rate 0 Oxygen Delivery Method Room Air Oxygen Flow Rate 0 Narrative Exam Narrative: General: This is an awake, alert, oriented morbidly obese male wearing a nasal BiPAP. He also appears to have some degree of anasarca and or edema with lower extremity venous stasis disease. Genitourinary exam again very large prepubic fat pad, buried penis, fibrotic and or narrowed prep use, minimal scrotal edema. It there is some blood-tinged urine expressed from the opening in the phimotic foreskin. 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 History of kidney stones History of prostate cancer (~2016) Iron deficiency Lower urinary tract symptoms Mixed hyperlipidemia Morbid obesity (08/16/15) Obstructive sleep apnea of adult (~2013) Pancreatitis (~1995) Phimosis Polyneuropathy, unspecified Primary insomnia (08/16/15) Recurrent sinusitis (~2007) Restless leg syndrome (~2013) Restrictive lung disease (08/16/15) Tinnitus (~1972) Urinary incontinence Surgical History Anesthesia History of common bile duct surgery (~1997) Status post knee surgery (~1993) Family History Brother Prostate cancer Liver cancer Father Parkinson disease Grandfather Hepatitis Grandfather History of heart disease Grandmother Cancer Social History household members: none Tobacco & Substance Use Smoking Status: Never smoker alcohol intake: current Assessment & Plan Assessment and plan (1) Urinary retention: Status: Acute (2) History of prostate cancer: Problem details: Lupron and radiation therapy Status: Inactive (3) History of kidney stones: Status: Chronic (4) Morbid obesity: Status: Chronic (5) Acquired buried penis: Status: Acute (6) Phimosis: Status: Chronic (7) Class 3 obesity with alveolar hypoventilation, serious comorbidity, and body mass index (BMI) of 50.0 to 59.9 in adult: Status: Acute Plan Assessment and plan: A very difficult and complex situation. Patient with apparent urinary retention inability to catheterize and or access the bladder. Significantly worsening creatinine significant comorbidities. Despite heroic attempts to try to drain the patient's urine we are unable to I have recommended that the patient have percutaneous nephrostomy tubes and perhaps at that time temporary or permanent percutaneous drainage of his bladder. These findings, efforts and recommendations were discussed with Dr. Goldstein. This is a very unfortunate circumstance and we wished the patient well. Time Spent With Patient Time with patient: 50 to 69 minutes with 50% spent counseling/coordinating care
--- NOTE | 2023-06-12 12:52 | CM.DPC ---
Addendum entered by PATIENCE Boyd 06/12/23 14:48: ADD: Per RN, pt has been accepted at [facility] but no transport time scheduled yet but pt will transfer this afternoon/evening some time. DOLORES Caputo updated [facility] to follow in case HH needed at d/c from [facility]. SW also called Nguyen Garza with [facility] [phone] and [place] [facility] [place] update on [place] transfer so [facility] can follow pt for LTC assessment needs. BF Original Note: DCP Cont: Per MD, pt's kidney function decreasing and labs not stable and feel pt could benefit from higher level of care and would like Hospital Transfer for Urology and Nephrology as pt may need dialysis or further intervention. Pt to have another bladder scan as well to r/o obstruction. Per body art technician, pt on the list for [facility] and also calling [facility]. [facility] continues to follow and aware of possible hospital transfer and also aware that MD might not be in agreement with HH at d/c. Plan: SW to follow closely to determine if pt will be accepted for hospital transfer and to keep [facility] and Nguyen Garza at [facility] updated on discharge plan. PATIENCE Boyd
--- NOTE | 2023-06-12 13:09 | OT.IPNOTE ---
In rounds, pt looking to be transferred to higher care when available. Pt has not further OT needs at this time and good understanding for energy conservations, need to ask for assistance, and to try to be proactive on his needs. Able to talk to case management , discharge pt from OT services.
--- NOTE | 2023-06-12 13:34 | P.DS_ITS ---
History of Present Illness History of Present Illness Date Patient Seen: 06/12/23 Time Patient Seen: 13:34 Chief complaint: states bladder infection/trouble urinating Narrative: 67-year-old male with history of prostate cancer with previous radiation in 2017 presents today with intermittent fevers, generally feeling unwell.? He states that last night he had blood in his urine and the passage of the occasional clots but has been unable to urinate since about 5:00 a.m. He denies runny nose, sore throat or cough.? He is no chest pain or shortness of breath.? He denies any upper abdominal pain but does have some suprapubic fullness.? He states that he has what his urologist have described as ?disappearing penis?.? He had been sent to urology and [place] previously and there was difficulty performing cystoscopy, he was eventually referred to the [facility] and was told that there was not a surgical intervention that could be performed due to his lung condition.? He historically has difficulty urinating but usually able to produce a urine stream.? {from initial H&P} Discharge Providers Provider Date of admission: 06/06/23 20:24 Discharge Date: 06/12/23 Primary care physician: Vince Goldstein MD Consults: 06/06/23 22:19 Consult to Discharge Planning Routine Comment: 06/07/23 08:00 Consult to Dietitian, Adult Routine Comment: Reason For Exam: POOR DIETARY CHOICES 06/07/23 08:04 Consult to Urology Routine Comment: Consulting Provider: Tristan Hernandez Reason for consultation: bilateral hydro, ESSENCE 06/07/23 11:02 Consult to Occupational Therapy Evaluate & Treat Comment: Physician Instructions: Evaluate and treat Consult to Physical Therapy Evaluate & Treat Comment: Physician Instructions: Evaluate and Treat Discharge provider: Vince Goldstein MD Summary Hospital Course Discharge Diagnosis: 1. Obstructive uropathy 2. Acute tubular necrosis 3. UTI with bacteremia caused by Citrobacter organism 4. Morbid obesity 5. Bladder outlet obstruction 6. Buried penis 7. Restrictive lung disease secondary to morbid obesity 8. Sepsis, resolved Hospital Course: Patient presented as above. [place] to be in mild septic shock. Was treated with initial broad-spectrum IV antibiotics. Patient did subsequently grow Citrobacter organism from both urine and blood. Antibiotic therapy had to be tailored to this specific organism as initial empiric antibiotics were not likely to be effective. He continued on cefepime for the duration of his hospitalization, to which his organism was shown to have sensitivity Patient also showed evidence of obstructive uropathy with bilateral hydronephrosis although patient was able to void some on his own. Creatinine was abnormal to start with compared to baseline which is normal creatinine. Urology was consulted who did not feel like patient had clear evidence of obstructive pathology ongoing as his bladder was not large and distended seem to be decompressed based on available imaging both CT scan and ultrasound. Patient's creatinine initially angela to a peak of 4.8 but then began to improve. The feeling was this is most likely an element of acute tubular necrosis secondary to his obstructive uropathy as well as possibly the infection. However just prior to discharge patient had 24+ hours of inability to void and this time on formal ultrasound evaluation showed evidence of bladder distention with greater than 600 cc of urine within his bladder. Patient's creatinine also angela more much more dramatically to 5+, with some hyperkalemia as well. Urology attempted to place Montoya catheter (which was attempted upon admission as well) and again this was not possible. Patient's anatomy prevents this from being done per Urology. Therefore based on his rising creatinine as well as evidence of bladder outlet obstruction with enlarging and distended bladder on top of the known pre-existing obstructive uropathy was felt as though patient would require most likely bilateral nephrostomy tubes for drainage of his urinary tract and some sort of access probably from a suprapubic approach to drain his bladder as well. These procedures not available at this institution in so outside hospitalization care was sought Patient's sepsis seem to resolve with initial antibiotic therapy as well as some low-level fluids. Heart rate and blood pressure much improved for the last several days of his hospitalization Patient does have chronic lung disease likely on the basis of his size and obesity mostly I restrictive type of lung disease. He was off oxygen but does require CPAP at night for the majority of his hospital stay Exam Vital Signs (past 8 hours): - 06/12/23 06:00 06/12/23 07:00 Temperature 98.8 F Pulse Rate 118 H Respiratory Rate 20 Blood Pressure 148/65 H Pulse Oximetry 99 Oxygen Delivery Method Room Air Oxygen Flow Rate 0 Oxygen Delivery Method Room Air Oxygen Flow Rate 0 Objective Labs 06/10/23 03:53 06/12/23 05:45 Labs: Laboratory Results - last 24 hr 06/12/23 05:45 Sodium 137 Potassium 5.5 H Chloride 109 H Carbon Dioxide 17 L BUN 51 H Creatinine 5.13 H Estimated GFR 12 L BUN/Creatinine Ratio 9.9 Glucose 120 H Calcium 7.9 L PFSH Medical History Acquired buried penis Anemia of chronic disease Chronic venous insufficiency (04/10/16) Eczema (~1996) Frequent UTI (~2017) 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 History of kidney stones History of prostate cancer (~2016) Iron deficiency Lower urinary tract symptoms Mixed hyperlipidemia Morbid obesity (08/16/15) Obstructive sleep apnea of adult (~2013) Pancreatitis (~1995) Phimosis Polyneuropathy, unspecified Primary insomnia (08/16/15) Recurrent sinusitis (~2007) Restless leg syndrome (~2013) Restrictive lung disease (08/16/15) Tinnitus (~1972) Urinary incontinence Surgical History Anesthesia History of common bile duct surgery (~1997) Status post knee surgery (~1993) Family History Brother Prostate cancer Liver cancer Father Parkinson disease Grandfather Hepatitis Grandfather History of heart disease Grandmother Cancer Social History household members: none Smoking Status: Never smoker alcohol intake: current Discharge Assessment & Plan Assessment and Plan Plan of Treatment: Plan for discharge to outside hospital for placement of nephrostomy tubes, bilateral as well as drainage of bladder externally. Patient will also need more definitive therapy for long-term planning for his urinary tract given his difficulty as above Hopefully with appropriate drainage of his bladder and urinary tract his renal function will improve Patient should probably have an extended course of antibiotic therapy for his Citrobacter infection. Patient has failed to respond previously to shorter than 2 week courses of antibiotic therapy, although that setting he was probably least intermittently obstructing his bladder outlet as well causing some degree of urine retention probably complicating full treatment of his infection. If he has adequate drainage of both his bladder and his upper urinary tract he may not need as long a course of antibiotic therapy, in my opinion. Discharge Plan Discharge Plan Patient Disposition: Xfer Acute Care Hospital Discharge Health Status Multidrug resistant organism: No MDRO Precautions: [place] Diet/Activity/Treatments Diet: Diet as Tolerated Liquid consistency: Normal/Thin Food texture: Regular Discharge Data Primary Care Provider: Vince Goldstein VTE Deep Vein Thrombosis/Pulmonary Embolism Present on Admission: No
== END 2023-06-12 17:52 | disposition short-term general hospital (02) | DRG 871 ==
LOC: ED 15:25 → AC 20:25 → ICU 21:27
PROVIDERS: Student in an Organized Health Care Education/Training Program; Admitting Provider Internal Medicine; Emergency Provider Emergency Medicine; PCP Internal Medicine; Referring Provider Emergency Medicine; Visit Provider Internal Medicine
DX: A41.89 Other specified sepsis (principal); N17.0 Acute kidney failure with tubular necrosis; R65.21 Severe sepsis with septic shock; N39.0 Urinary tract infection, site not specified; Z68.43 Body mass index [BMI] 50.0-59.9, adult; E66.2 Morbid (severe) obesity with alveolar hypoventilation; N13.2 Hydronephrosis with renal and ureteral calculous obstruction; B96.89 Other specified bacterial agents as the cause of diseases classified elsewhere; D50.9 Iron deficiency anemia, unspecified; R33.9 Retention of urine, unspecified; N47.1 Phimosis; Q55.64 Hidden penis; Z85.46 Personal history of malignant neoplasm of prostate
CPT/HCPCS: 36415; 51798; 71045; 74176; 76770; 80048; 80053; 80076; 81001; 82570; 82607; 82746; 83010; 83540; 83550; 83605; 83690; 83735; 84145; 84300; 85014; 85018; 85025; 85610; 85730; 87040; 87077; 87086; 87154; 87186; 87797; 93005; 93010; 96365; 96375; 97162; 97166; 97530; 97535; 99232; 99233; 99238; 99285; J0692; J0696; J2270; J2405; J2916

== ENCOUNTER → 2023-10-20 11:41 | Outpatient (CLI) | payer MEDICARE, MEDICAID, SELFPAY ==
[2023-06-06 21:25] VITALS: BMI 59.3
[2023-10-20 12:20] LABS: Add Manual Diff / Slide Review NO; Basophils Absolute Auto 0 /uL (0-100); Basophils Percent Auto 0.4 % (0-2); Eosinophils Absolute Auto 200 /uL (0-450); Eosinophils Percent Auto 2.5 % (2-4); Hematocrit 31.4 % (41-53); Hemoglobin 10.4 g/dL (13.5-17.5); Lymphocytes Absolute Auto 1000 /uL (1100-4500); Lymphocytes Percent Auto 10.4 % (25-40); Mean Corpuscular HGB Conc 33.2 % (30-36); Mean Corpuscular Hemoglobin 29.7 PG (26-34); Mean Corpuscular Volume 89.5 fL (80-100); Monocytes Absolute Auto 900 /uL (0-900); Monocytes Percent Auto 8.7 % (3-14); Neutrophils Absolute Auto 7700 /uL (1500-7000); Platelet Count 127 X10^3/uL (150-400); Red Blood Cell Count 3.51 X10^6/uL (4.5-5.9); Red Cell Distribution Width 16.3 % (11.6-14.8); White Blood Cell Count 9.9 X10^3/uL (4.5-11.0)
[2023-10-20 12:51] LABS: Alanine Aminotransferase 25 IU/L (<50); Albumin 3.7 g/dL (3.5-5.0); Albumin Globulin Ratio 0.8 (1.0-2.8); Alkaline Phosphatase 144 U/L (38-126); Aspartate Aminotransferase 26 IU/L (17-59); BUN Creatinine Ratio 12.8 (6-22); Blood Urea Nitrogen 21 mg/dL (9-20); Calcium 9.7 mg/dL (8.4-10.2); Carbon Dioxide 29 mmol/L (22-32); Chloride 96 mmol/L (98-107); Estimated Glomerular Filt Rate 45 mL/min (>60); Globulin 4.5 g/dL (1.7-4.1); Glucose 134 mg/dL (80-110); HEMOLYSIS < 15 (0-50); Potassium 3.8 mmol/L (3.4-5.1); Sodium 132 mmol/L (137-145); Total Protein 8.2 g/dL (6.3-8.2)
== END ==
PROVIDERS: PCP Internal Medicine; Referring Provider Internal Medicine; Visit Provider Internal Medicine
DX: N39.0 Urinary tract infection, site not specified (principal); E78.2 Mixed hyperlipidemia; E61.1 Iron deficiency; D63.8 Anemia in other chronic diseases classified elsewhere
CPT/HCPCS: 36415; 80053; 85025; 87077; 87086; 87186

== ENCOUNTER → 2023-11-02 10:26 | Outpatient (CLI) | payer MEDICARE, MEDICAID, SELFPAY ==
[2023-06-06 21:25] VITALS: BMI 59.3
--- NOTE | 2023-11-02 10:30 | DI.RAD.S_ITS ---
PROCEDURE: FL BARIUM SWALLOW W SPEECH INDICATIONS: Dysphagia COMPARISON: None. TECHNIQUE: Examination was conducted in conjunction with speech pathology per standard protocol. In the lateral projection, filming was performed of the patient swallowing. AP projection filming may also be performed with patient swallowing. COMPARISON: FINDINGS: Function: Please see pathology for detailed results. Morphology: No cricopharyngeal bar is identified. No cervical esophageal webs. No Zenker's diverticulum. IMPRESSION: Please see speech pathology note for detailed results. Dictated by: Michael Jones M.D. on 11/03/2023 at 12:19 Approved by: Michael Jones M.D. on 11/03/2023 at 12:22
--- NOTE | 2023-11-02 13:25 | ST.SWALLOW ---
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 Goldstein Reason for Referral dysphagia Setting Setting Outpatient Care Patient Information Identification Type Name,Date of Patient History Pt was seen for a Modified Barium Swallow Study at the referral of Dr. Goldstein. Pt was accompanied by a caregiver . Pt described a his PMH as recently including hospitalizations for UTI since June 2023. Most recently , the pt reported that he was admitted to [facility] and was in acute care for a week. He then transferred to [facility], where he was diagnosed with PNA and was intubated x2 days. He was discharged to SNF from . Pt reported that when he was extubated at , he did not pass a swallow assessment. He reports increased difficulty swallowing since he has returned home. MBSS to determine current status of pt 's swallow. Describing his swallowing, the pt reported that he frequently coughs on saliva. He stated that foods, liquids and/or medications are not typically difficult to swallow . He noted that when he chokes on saliva, he will often cough up undigested pieces of food. Subjective Observations Pt used wheelchair to enter fluoroscopy room with caregiver. Pt indicated he understood instructions and agreed to proceed. Patient Positioning Position View Lat-A/P Imaging Lateral View Textures Administered Trials Presented Thin Liquid via Spoon (IDDSI 0 ),Thin Liquid via Cup (IDDSI 0 ),Extremely Thick Liquid via Spoon (IDDSI 4),Regular (IDDSI 7) Barium Tablet Yes The IDDSI Framework Protocol: IDDSI.1 Oral Impairment Source: The Modified Barium Swallow Impairment Profile (MBSImP??) Lip Closure No labial escape Tongue Control During Bolus Hold Cohesive bolus between tongue to palatal seal Bolus Preparation/Mastication Timely & efficient chewing & mashing Bolus Transport/Lingual Motion Brisk tongue motion Oral Residue Trace residue lining oral structures,Residue collection on oral structures Location Tongue Initiation of Pharyngeal Swallow Bolus head at posterior laryngeal surface of epiglottis Additional Oral Impairment Observations OME and DKS were observed to be WNL. Mastication observed with rotary chew pattern. Minimal oral residue observed Pharyngeal Impairment Source: The Modified Barium Swallow Impairment Profile (MBSImP??) Soft Palate Elevation No bolus between soft palate & pharyngeal wall Laryngeal Elevation No superior movement of thyroid cartilege Anterior Hyoid Excursion Partial anterior movement Epiglottic Movement Complete inversion Laryngeal Vestibular Closure Incomplete; narrow column air/ contrast in laryngeal vestibule Pharyngeal Stripping Wave Present - diminished Pharyngoesophageal Segment Opening Minimal distension/minimal duration; marked obstruction of flow Tongue Base Retraction Wide column of contrast/air betwn tongue base & post. pharyngeal wall Pharyngeal Residue Trace residue within/on pharyngeal structures Location Diffuse (>3 areas) Additional Pharyngeal Impairment Tongue base retraction Observations weakness noted with no laryngeal elevation and partial hyoid movement. The epiglottis inverted completely ; however the seal of the laryngeal vestibule was compromised with laryngeal penetration observed x4 above the vocal folds with visible laryngeal residue (PAS3). Laryngeal residue did not clear; reflexive cough not elicited. No aspiration was observed. With solid food trial, there was significant residue in the valeculla and at the UES that required 5+ swallows to clear the bolus (1/2 Tracy Doone cookie). There appeared to be reduced extension and extension of the UES with ~50% of the bolus remaining in the valeculla/UES. Liquids and a barium tablet were noted to clear the UES without difficulty. A/P View Textures Administered Trials Presented Thin Liquid via Spoon (IDDSI 0 ),Thin Liquid via Cup (IDDSI 0 ) The IDDSI Framework Protocol: IDDSI.1 A/P View Observations Pharyngeal Contraction Complete Esophageal Clearance Upright Position Esophageal retention w/ regtrograde flow below pharyngoesoph segment Vocal Fold Function Good Esophageal Function Slowed Clearing Additional A-P Observations In the AP position, the liquid trials cleared the esophagus into the stomach. The barium tablet did not enter the LES in a timely manner. The pt at that time reported that there was something stuck (pointing to the sternal notch)in his throat. The MBSS was stopped proir to the tablet entering the stomach. Clinical Impressions Dysphagia Type Pharyngeal Findings Tongue base retraction weakness noted with no laryngeal elevation and partial hyoid movement. The epiglottis inverted completely ; however the seal of the laryngeal vestibule was compromised with laryngeal penetration observed x4 above the vocal folds with visible laryngeal residue (PAS3). Laryngeal residue did not clear; reflexive cough not elicited. No aspiration was observed. The barium tablet was delayed in entering the stomach (AP view) with pt reporting sensation of globus at the base of his neck. Rehabilitation Potential Excellent Patient Appropriate for Therapy Yes: Pt getting Home Health therapies Recommendations Diet Medication Recommendation As Tolerated Comments No change in diet texture recommended; Liquids to be one sip at a time Additional Dietary Needs Single Sips,Controlled Sips,No Straws Aspiration Precautions Recommended Precautions Upright at 90 Degrees, Alternate Liquids/Solids,Small Bites/Sips Treatment Plan Therapy Recommendations Outpatient Speech Therapy,Base of Tongue Exercises Recommended Referrals GI Consult Additional Recommended Referrals GI assessment recommended based on observations described above. Therapy Strategy Recommendations Sitting Upright (90 deg),No Straw,Small Bites and Sips, Alternate Liquids/Solids Placement Recommendation After Discharge Home with Home Health
== END ==
LOC: RAD 10:27
PROVIDERS: PCP Internal Medicine; Referring Provider Internal Medicine; Visit Provider Internal Medicine
DX: R13.10 Dysphagia, unspecified (principal)
CPT/HCPCS: 74230; 92611

== ENCOUNTER → 2023-11-20 11:53 | Outpatient (CLI) | payer MEDICARE, MEDICAID, SELFPAY ==
[2023-06-06 21:25] VITALS: BMI 59.3
== END ==
PROVIDERS: PCP Internal Medicine; Visit Provider Internal Medicine
DX: C61 Malignant neoplasm of prostate (principal); N18.31 Chronic kidney disease, stage 3a; R31.9 Hematuria, unspecified; Z93.59 Other cystostomy status
CPT/HCPCS: 36415; 80048; 84153; 87077; 87086; 87186

== ENCOUNTER → 2023-11-20 12:30 | Outpatient (CLI) | payer MEDICARE, MEDICAID, SELFPAY ==
[2023-06-06 21:25] VITALS: BMI 59.3
[2023-11-20 13:50] LABS: BUN Creatinine Ratio 28.3 (6-22); Blood Urea Nitrogen 34 mg/dL (9-20); Carbon Dioxide 30 mmol/L (22-32); Chloride 98 mmol/L (98-107); Estimated Glomerular Filt Rate > 60 mL/min (>60); Glucose 116 mg/dL (80-110); HEMOLYSIS < 15 (0-50); Potassium 4.6 mmol/L (3.4-5.1); Sodium 134 mmol/L (137-145)
[2023-11-20 14:22] LABS: Prostate Specific Antigen < 0.064 ng/mL (0.10-4.00)
== END ==
PROVIDERS: PCP Internal Medicine; Referring Provider Urology; Visit Provider Urology
DX: C61 Malignant neoplasm of prostate (principal); N18.31 Chronic kidney disease, stage 3a
CPT/HCPCS: 36415; 80048; 84153

== ENCOUNTER → 2023-12-01 08:09 | Outpatient (CLI) | payer MEDICARE, MEDICAID, SELFPAY ==
[2023-06-06 21:25] VITALS: BMI 59.3
--- NOTE | 2023-12-01 | DI.US.S_ITS ---
PROCEDURE: US RENAL COMPLETE INDICATIONS: Unspecified hydronephrosis TECHNIQUE: Real-time scanning was performed of the kidneys and bladder, with image documentation. COMPARISON: [facility], CT, CT KIDNEY URETER BLADDER (KUB), 06/08/2023, 7:47. [facility], US, US RENAL COMPLETE, 06/12/2023, 8:38. FINDINGS: Kidneys: Kidneys are normal in size. Right kidney measures 12.8 cm long; left kidney measures 12.2 cm long. Right renal cortical thickness is 1.6 cm; left renal cortical thickness is 1.4 cm. Renal cortical echotexture is normal. No hydronephrosis. Small left kidney stones measuring 0.8 cm and 0.5 cm. No suspicious solid mass lesions. Bladder: Decompressed with Montoya catheter. Miscellaneous: No free pelvic fluid. IMPRESSION: 1. No hydronephrosis demonstrated. 2. Small nonobstructing left kidney stones x2 identified. Dictated by: Allen Muñoz M.D. on 12/01/2023 at 12:01 Approved by: Allen Muñoz M.D. on 12/01/2023 at 12:06
== END ==
PROVIDERS: PCP Internal Medicine; Referring Provider Urology; Visit Provider Urology
DX: N13.30 Unspecified hydronephrosis (principal); N20.0 Calculus of kidney
CPT/HCPCS: 76770

== ENCOUNTER 2023-12-13 22:30 | Emergency (ER) | payer MEDICARE, MEDICAID, SELFPAY ==
[2023-06-06 21:25] VITALS: BMI 59.3
[2023-12-13 22:33] VITALS: BP 135/71; PULSE 142; RESP 22; TEMP 37; O2SAT 91; BMI 53.9
--- NOTE | 2023-12-13 22:49 | ED_ITS ---
HPI - General Adult General Chief complaint: Urogenital-Male Stated complaint: fever/cathetar blocked/rt leg injury Time Seen by Provider: 12/13/23 22:39 Source: patient Mode of arrival: Wheelchair History of Present Illness HPI narrative: 68-year-old male has a indwelling Montoya catheter. Had some issues with the Montoya catheter earlier today the but not draining. That situation has been fixed although he states that he started to have a fever earlier today. He was told by his urologist that he always has a urinary tract infection and he should only be treated with the antibiotics if he develops a fever. He was also somewhat concerned that maybe his legs were becoming red and more warm and was concern for infection this. Overall feels well. No chest pain. He states that he normally has a high heart rate in the 115-125 range. For the last time he was treated with the antibiotics it was with Cipro. Related Data Home Medications Medication Instructions Recorded Confirmed ropinirole 2 mg tablet 2 mg PO BEDTIME 06/26/20 11/20/23 trazodone 50 mg tablet 50 mg PO BEDTIME 06/26/20 11/20/23 ferrous sulfate 325 mg (65 mg 325 mg PO DAILY 09/25/22 11/20/23 iron) tablet aspirin 81 mg tablet 81 mg PO DAILY 03/17/23 11/20/23 diclofenac sodium 1 % topical gel 1 ea topical 4XD 10/20/23 11/20/23 albuterol sulfate 2.5 mg/3 mL 2.5 mg inhalation Q4-6H PRN 10/21/23 11/20/23 (0.083 %) solution for nebulization fluticasone propionate 50 2 spray intranasal DAILY 10/21/23 11/20/23 mcg/actuation nasal spray,suspension Previous Rx's Medication Instructions Recorded food supplemt, lactose-reduced 1 ea PO QID #28,440 mL 02/12/23 (Ensure Original oral liquid) meloxicam 7.5 mg tablet 7.5 mg PO DAILY #90 tabs 10/20/23 fluconazole 150 mg tablet 150 mg PO Q OTHER DAY 10 doses #10 10/30/23 tabs furosemide 20 mg tablet 20 mg PO BID #180 tabs 11/11/23 potassium chloride 10 mEq 10 meq PO DAILY #90 tabs 11/11/23 tablet,extended release ciprofloxacin HCl 750 mg tablet 750 mg PO BID #28 tabs 11/23/23 levofloxacin 750 mg tablet 750 mg PO DAILY 4 days #4 tabs 12/14/23 Allergies Allergy/AdvReac Type Severity Reaction Status Date / Time No Known Drug Allergies Allergy Verified 11/20/23 11:41 Review of Systems Constitutional Constitutional: Reports system reviewed and no additional complaints, except as documented Cardiovascular Cardiovascular: Reports system reviewed and no additional complaints, except as documented Respiratory Respiratory: Reports system reviewed and no additional complaints, except as documented Gastrointestinal Gastrointestinal: Reports system reviewed and no additional complaints, except as documented Integumentary/Breasts Skin/Breast: Reports system reviewed and no additional complaints, except as documented Neurologic Neurologic: Reports system reviewed and no additional complaints, except as documented Hematologic/Lymphatic On Anticoagulants: No Patient History Medical History Chronic renal failure, stage 3a Urinary retention Acquired buried penis Urinary incontinence Iron deficiency Polyneuropathy, unspecified Anemia of chronic disease Mixed hyperlipidemia Eczema (~1996) Restless leg syndrome (~2013) Tinnitus (~1972) Recurrent sinusitis (~2007) Frequent UTI (~2017) Pancreatitis (~1995) Obstructive sleep apnea of adult (~2013) History of kidney stones Phimosis Lower urinary tract symptoms History of prostate cancer (~2016) Chronic venous insufficiency (04/10/16) Restrictive lung disease (08/16/15) Primary insomnia (08/16/15) Morbid obesity (08/16/15) 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) Surgical History (Updated 10/30/23 @ 10:16 by Vince Goldstein MD) Chronic suprapubic catheter Anesthesia History of common bile duct surgery (~1997) Status post knee surgery (~1993) Family History Brother Prostate cancer Liver cancer Father Parkinson disease Grandfather Hepatitis Grandfather History of heart disease Grandmother Cancer Social History household members: none Smoking Status: Never smoker alcohol intake: current Smoking Status: Never smoker alcohol intake frequency: a few times a week Substance Use Type: does not use Exam Initial Vital Signs Initial Vital Signs: Vital Signs Temperature 98.6 F 12/13/23 22:33 Pulse Rate 142 H 12/13/23 22:33 Respiratory Rate 22 12/13/23 22:33 Blood Pressure 135/71 12/13/23 22:33 Pulse Oximetry 91 12/13/23 22:33 Oxygen Delivery Method Room Air 12/13/23 22:33 Const General: cooperative, comfortable and No ill appearing [facility] Head: normal to inspection and normocephalic Resp Effort & Inspection: normal respiratory effort Auscultation: clear to auscultation bilaterally Cardio Rate: regular rate Rhythm: regular rhythm GI Inspection: normal to inspection Skin General: no rashes or lesions noted Neuro General: patient alert, patient awake and moves all extremities Extrem Other: Chronic venous stasis changes and hemosiderin staining to his lower extremities. He does have scabs in the anterior portion of his right forde. There was no warmth to the lower extremities. Course Orders Ordered: ED Orders 12/13/23 22:50 Urinalysis and Microscopic Stat Urine Culture Stat 12/13/23 23:10 Blood Culture Stat Complete Blood Count AUTO DIFF Stat Comprehensive Metabolic Panel Stat Lactate (Lactic Acid) Stat Lipase Stat 12/13/23 23:43 XR chest 1V Stat Discontinued Medications Acetaminophen (Acetaminophen 325 Mg Tablet) 650 mg PO NOW ONE Stop: 12/13/23 23:17 Last Admin: 12/13/23 23:37 Dose: 650 mg Documented By: Levofloxacin (Levaquin) 750 mg in 150 mls @ 100 mls/hr IV NOW ONE Stop: 12/14/23 00:45 Last Infusion: 12/14/23 01:08 Dose: Infused Documented By: Admin: 12/13/23 23:38 Dose: 100 mls/hr Documented By: Vital Signs Vital signs: Vital Signs - 8 hr 12/13/23 22:33 12/14/23 01:09 Temperature 98.6 F 100.1 F H Pulse Rate 142 H 94 H Respiratory Rate 22 26 H Blood Pressure 135/71 117/64 Pulse Oximetry 91 94 Oxygen Delivery Method Room Air Room Air Medical Decision Making Lab Data Lab results reviewed: Yes I reviewed the patient's lab results. 12/13/23 23:10 12/13/23 23:10 Labs: Lab Results 12/13/23 12/13/23 Range/Units 22:50 23:10 WBC 10.7 (4.5-11.0) X10^3/uL RBC 4.06 L (4.5-5.9) X10^6/uL Hgb 12.3 L (13.5-17.5) g/dL Hct 37.1 L (41-53) % MCV 91.4 (80-100) fL MCH 30.2 (26-34) PG MCHC 33.0 (30-36) % RDW 17.9 H (11.6-14.8) % Plt Count 133 L (150-400) X10^3/uL Neut % (Auto) 84.1 H (50-75) % Lymph % (Auto) 7.0 L (25-40) % [place] % (Auto) 7.6 (3-14) % Eos % (Auto) 0.8 L (2-4) % Baso % (Auto) 0.5 (0-2) % Neut # (Auto) 9000 H (7216-7428) /uL Lymph # (Auto) 700 L (2480-8866) /uL [place] # (Auto) 800 (0-900) /uL Eos # (Auto) 100 (0-450) /uL Baso # (Auto) 100 (0-100) /uL Sodium 137 (137-145) mmol/L Potassium 4.2 (3.4-5.1) mmol/L Chloride 106 (98-107) mmol/L Carbon Dioxide 24 (22-32) mmol/L BUN 29 H (9-20) mg/dL Creatinine 1.39 H (0.66-1.25) mg/dL Estimated GFR 55 L (>60) mL/min BUN/Creatinine Ratio 20.9 (6-22) Glucose 144 H (80-110) mg/dL Lactate 1.6 (0.7-2.1) mmol/L Calcium 9.3 (8.4-10.2) mg/dL Total Bilirubin 1.0 (0.2-1.3) mg/dL AST 34 (17-59) IU/L ALT 33 (<50) IU/L Alkaline Phosphatase 97 (38-126) U/L Total Protein 7.5 (6.3-8.2) g/dL Albumin 3.7 (3.5-5.0) g/dL Globulin 3.8 (1.7-4.1) g/dL Albumin/Globulin Ratio 1.0 (1.0-2.8) Lipase 202 (23-300) U/L Urine Color Yellow Urine Appearance Sl cloudy Urine pH 8.5 H (4.5-8.0) Ur Specific [place] 1.015 (1.000-1.035) Urine Protein Trace H (Negative) Urine Glucose (UA) Negative (Negative) g/dL Urine Ketones Negative (NEGATIVE) Urine Occult Blood 1+ H (Negative) Urine Nitrate Positive H (Negative) Urine Bilirubin Negative (NEGATIVE) Urine Urobilinogen 0.2 (0.2) E.U./dL Ur Leukocyte Esterase 2+ H (NEGATIVE) Urine RBC 0-1/hpf (0-5/HPF) Urine WBC 10-30/hpf H (0-5/HPF) Ur Squamous Epith Cells 0-1 /hpf (0-5/HPF) Triple Phos Crystals Few Urine Bacteria Moderate (10-30) H (None) Vol Urine Centrifuged 10ml (spun) MDM Narrative Medical decision making narrative: Patient is tachycardic although is afebrile. Does not have a leukocytosis. Has a nitrite positive urine. Review of his medical record show that his last urinalysis did have bacteria that was susceptible to Cipro and Levaquin. He was given a dose of Levaquin here in the ER. Is tolerating oral intake. Negative lactate. No indication for admission to the hospital. Will discharge home with a prescription for Levaquin. His Montoya catheter is draining. Do not feel that his lower extremities are cellulitic. He was given return precautions. He expressed understanding and agreement. Discharge Plan Departure Patient Disposition: Home Clinical Impression: Urinary tract infection Instructions: DI for Urinary Tract Infection (UTI) Activity Restrictions/Additional Instructions: Please take the antibiotics as directed. There was a urine culture pending at the time of discharge and we will contact you if we need to change antibiotics based on this. Continue the rest of your medications as directed. Return to the emergency department for new symptoms. Prescriptions: New levofloxacin 750 mg tablet 750 mg PO DAILY 4 Days Qty: 4 0RF No Action Ensure Original Liquid 1 ea PO QID Qty: 49006 12RF albuterol sulfate 2.5 mg /3 mL (0.083 %) solution for nebulization 2.5 mg inhalation Q4-6H PRN fluticasone propionate 50 mcg/actuation spray,suspension 2 spray intranasal DAILY Rx Instructions: administer into each nostril potassium chloride 10 mEq tablet extended release 10 meq PO DAILY Qty: 90 1RF furosemide 20 mg tablet 20 mg PO BID Qty: 180 1RF ciprofloxacin HCl 750 mg tablet 750 mg PO BID Qty: 28 1RF diclofenac sodium 1 % gel 1 ea topical 4XD meloxicam 7.5 mg tablet 7.5 mg PO DAILY Qty: 90 3RF ropinirole 2 mg tablet 2 mg PO BEDTIME Rx Instructions: 2-3 hrs before bedtime. trazodone 50 mg tablet 50 mg PO BEDTIME Rx Instructions: 2-3 hrs before bed ferrous sulfate 325 mg (65 mg iron) tablet 325 mg PO DAILY fluconazole 150 mg tablet 150 mg PO Q OTHER DAY Qty: 10 0RF Adult Low Dose Aspirin 81 mg Tablet 81 mg PO DAILY Patient Comments: Pt started 03/15 because it's healthy. Not prescribed by provider. Referrals: Vince Goldstein MD [Primary Care Provider] - Stand Alone Forms: Patient Portal/API
[2023-12-13 23:12] LABS: Appearance Urine UA SL CLOUDY; Bilirubin Urine UA NEGATIVE (NEGATIVE); Color Urine UA YELLOW; Glucose Urine UA NEGATIVE (Negative); Ketones Urine UA NEGATIVE (NEGATIVE); Leukocyte Esterase Urine UA 2+ (NEGATIVE); Nitrite Urine UA POSITIVE (Negative); Occult Blood Urine UA 1+ (Negative); Protein Urine UA TRACE (Negative); Specific Gravity Urine UA 1.015 (1.000-1.035); Urobilinogen Urine UA 0.2 E.U./dL (0.2); pH Urine UA 8.5 (4.5-8.0)
[2023-12-13 23:19] LABS: RBC Urine 0-1/HPF (0-5/HPF); Squamous Epithelial Cell Urine 0-1 /HPF (0-5/HPF); Triple Phosphate Crystal Urine Few; Urine Volume 10mL (spun); WBC Urine 10-30/HPF (0-5/HPF)
--- NOTE | 2023-12-13 23:19 | PC.NURSE ---
Pt reports that he has had his suprapubic catheter since july 2023, in the last 2 weeks has had his catheter changed 5 times due to sedimentation. Pt has had recurrent UTIs. Urologist states that if pt has a fever or n/v he should be treated for possible infection.
[2023-12-13 23:20] LABS: Bacteria Urine Moderate (10-30)
[2023-12-13 23:24] LABS: Add Manual Diff / Slide Review NO; Basophils Absolute Auto 100 /uL (0-100); Basophils Percent Auto 0.5 % (0-2); Eosinophils Absolute Auto 100 /uL (0-450); Eosinophils Percent Auto 0.8 % (2-4); Hematocrit 37.1 % (41-53); Hemoglobin 12.3 g/dL (13.5-17.5); Lymphocytes Absolute Auto 700 /uL (1100-4500); Mean Corpuscular Hemoglobin 30.2 PG (26-34); Mean Corpuscular Volume 91.4 fL (80-100); Monocytes Absolute Auto 800 /uL (0-900); Monocytes Percent Auto 7.6 % (3-14); Neutrophils Absolute Auto 9000 /uL (1500-7000); Neutrophils Percent Auto 84.1 % (50-75); Platelet Count 133 X10^3/uL (150-400); Red Blood Cell Count 4.06 X10^6/uL (4.5-5.9); Red Cell Distribution Width 17.9 % (11.6-14.8); White Blood Cell Count 10.7 X10^3/uL (4.5-11.0)
[2023-12-13 23:35] LABS: Alanine Aminotransferase 33 IU/L (<50); Albumin 3.7 g/dL (3.5-5.0); Alkaline Phosphatase 97 U/L (38-126); Aspartate Aminotransferase 34 IU/L (17-59); BUN Creatinine Ratio 20.9 (6-22); Blood Urea Nitrogen 29 mg/dL (9-20); Calcium 9.3 mg/dL (8.4-10.2); Carbon Dioxide 24 mmol/L (22-32); Chloride 106 mmol/L (98-107); Estimated Glomerular Filt Rate 55 mL/min (>60); Globulin 3.8 g/dL (1.7-4.1); Glucose 144 mg/dL (80-110); HEMOLYSIS < 15 (0-50); Lactate (Lactic Acid) 1.6 mmol/L (0.7-2.1); Lipase 202 U/L (23-300); Potassium 4.2 mmol/L (3.4-5.1); Sodium 137 mmol/L (137-145); Total Protein 7.5 g/dL (6.3-8.2)
[2023-12-13] MEDS: ACETAMINOPHEN 325 MG TABLET 650 MG PO (23:37)
[2023-12-13] MEDS: levoFLOXacin 750 MG/150 ML PIGGYBACK 100 MG IV (23:38)
--- NOTE | 2023-12-13 23:43 | DI.RAD.S_ITS ---
PROCEDURE: XR CHEST 1V INDICATIONS: R sided chest pain TECHNIQUE: One view of the chest was acquired. COMPARISON: [facility], , XR CHEST 1V, 06/06/2023, 13:39. FINDINGS: Surgical changes and devices: None. Lungs and pleura: Lungs are clear. No pleural effusions or pneumothorax. Mediastinum: Mediastinal contours appear normal. Heart size is normal. Bones and chest wall: No suspicious bony lesions. Overlying soft tissues appear unremarkable. IMPRESSION: No acute cardiopulmonary pathology. Dictated by: Brent Chase M.D. on 12/13/2023 at 23:55 Approved by: Brent Chase M.D. on 12/13/2023 at 23:55
[2023-12-14 01:09] VITALS: BP 117/64; PULSE 94; RESP 26; TEMP 37.8; O2SAT 94
== END 2023-12-14 01:10 | disposition home or self-care (01) ==
PROVIDERS: Emergency Provider Emergency Medicine; PCP Internal Medicine
DX: N39.0 Urinary tract infection, site not specified (principal)
CPT/HCPCS: 36415; 71045; 80053; 81001; 83605; 83690; 85025; 87040; 87077; 87086; 87186; 96365; 96366; 99284; J1956

== ENCOUNTER 2024-04-19 11:53 | Emergency (ER) | payer MEDICARE, MEDICAID, SELFPAY ==
[2023-06-06 21:25] VITALS: BMI 59.3
[2024-04-19] VITALS (24 sets, daily range): BP systolic 131–198; BP diastolic 62–85; PULSE 89–113; RESP 13–24; TEMP 36.9; O2SAT 92–99; BMI 57.7
--- NOTE | 2024-04-19 12:03 | DI.RAD.S_ITS ---
PROCEDURE: XR CHEST 1V INDICATIONS: chest pain TECHNIQUE: One view of the chest was acquired. COMPARISON: [facility], CR, XR CHEST 1V, 12/13/2023, 23:44. [facility], CR, XR CHEST 1V, 06/06/2023, 13:39. FINDINGS: Surgical changes and devices: None. Lungs and pleura: Stable mild left basilar atelectasis. Lungs are otherwise clear. No pleural effusions or pneumothorax. Mediastinum: Mediastinal contours appear normal. Heart size is normal. Bones and chest wall: No suspicious bony lesions. Overlying soft tissues appear unremarkable. IMPRESSION: No acute cardiopulmonary abnormality is seen. Dictated by: Ammon George M.D. on 04/19/2024 at 12:59 Approved by: Ammon George M.D. on 04/19/2024 at 12:59
--- NOTE | 2024-04-19 12:07 | EKG_ITS ---
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
[2024-04-19 12:24] LABS: Add Manual Diff / Slide Review NO; Basophils Absolute Auto 100 /uL (0-100); Basophils Percent Auto 0.7 % (0-2); Eosinophils Absolute Auto 300 /uL (0-450); Eosinophils Percent Auto 4.4 % (2-4); Hematocrit 33.5 % (41-53); Hemoglobin 11.3 g/dL (13.5-17.5); Lymphocytes Absolute Auto 1200 /uL (1100-4500); Mean Corpuscular HGB Conc 33.6 % (30-36); Mean Corpuscular Hemoglobin 32.6 PG (26-34); Mean Corpuscular Volume 96.8 fL (80-100); Monocytes Absolute Auto 600 /uL (0-900); Monocytes Percent Auto 7.3 % (3-14); Neutrophils Absolute Auto 5600 /uL (1500-7000); Neutrophils Percent Auto 71.6 % (50-75); Platelet Count 127 X10^3/uL (150-400); Red Blood Cell Count 3.46 X10^6/uL (4.5-5.9); Red Cell Distribution Width 16.7 % (11.6-14.8); White Blood Cell Count 7.8 X10^3/uL (4.5-11.0)
[2024-04-19 12:35] LABS: INR 1.1 (0.9-1.3); Prothrombin Time 12.2 SECONDS (9.4-12.5)
[2024-04-19 12:37] LABS: Alanine Aminotransferase 24 IU/L (<50); Albumin 3.8 g/dL (3.5-5.0); Albumin Globulin Ratio 1.1 (1.0-2.8); Alkaline Phosphatase 108 U/L (38-126); Aspartate Aminotransferase 29 IU/L (17-59); BUN Creatinine Ratio 16.5 (6-22); Bilirubin Total 0.7 mg/dL (0.2-1.3); Blood Urea Nitrogen 16 mg/dL (9-20); Calcium 8.5 mg/dL (8.4-10.2); Carbon Dioxide 26 mmol/L (22-32); Chloride 105 mmol/L (98-107); Creatine Kinase 165 U/L (55-170); Estimated Glomerular Filt Rate > 60 mL/min (>60); Globulin 3.6 g/dL (1.7-4.1); Glucose 133 mg/dL (80-110); HEMOLYSIS < 15 (0-50); Lipase 106 U/L (23-300); Magnesium 2.1 mg/dL (1.6-2.3); PTT Partial Thromboplastin Tim 34 SECONDS (25.1-36.5); Potassium 4.1 mmol/L (3.4-5.1); Sodium 138 mmol/L (137-145); Total Protein 7.4 g/dL (6.3-8.2)
[2024-04-19 12:49] LABS: NT-proBNP (BNP-Adult 18+) 106 pg/mL (<125); Troponin I < 0.012 ng/mL (0.01-0.034)
--- NOTE | 2024-04-19 13:37 | ED_ITS ---
HPI - Chest Pain <Jasbir Martin MD - Last Filed: 04/25/24 14:15> General Chief Complaint: Chest Pain Stated Complaint: sent by EMS, abnormal ekg, Chest Pain Time Seen by Provider: 04/19/24 12:50 Source: patient Mode of arrival: Wheelchair Limitations: no limitations History of Present Illness HPI narrative: Patient brought in by ambulance from home for complaints of off and on left- sided chest discomfort. It lasts less than 5 seconds. Has had multiple frequent episodes today. Even while here. No PVCs seen on monitor during these episodes. No nausea shortness breath diaphoresis. Patient has never had echocardiogram in the past has had EKGs in the past. No stress test in the past. Patient denies any chest pain at this time. Has had aspirin by EMS. Related Data Home Medications Medication Instructions Recorded Confirmed ropinirole 2 mg tablet 2 mg PO BEDTIME 06/26/20 01/28/24 trazodone 50 mg tablet 50 mg PO BEDTIME 06/26/20 01/28/24 ferrous sulfate 325 mg (65 mg 325 mg PO DAILY 09/25/22 01/28/24 iron) tablet aspirin 81 mg tablet 81 mg PO DAILY 03/17/23 01/28/24 fluticasone propionate 50 2 spray intranasal DAILY 10/21/23 01/28/24 mcg/actuation nasal spray,suspension Previous Rx's Medication Instructions Recorded meloxicam 7.5 mg tablet 7.5 mg PO DAILY #90 tabs 10/20/23 furosemide 20 mg tablet 20 mg PO BID #180 tabs 11/11/23 potassium chloride 10 mEq 10 meq PO DAILY #90 tabs 11/11/23 tablet,extended release duloxetine 30 mg capsule,delayed 30 mg PO DAILY #90 caps 12/18/23 release omeprazole 40 mg capsule,delayed 40 mg PO DAILY #90 caps 01/19/24 release food supplemt, lactose-reduced 1 ea PO QID #28,440 mL 02/08/24 (Ensure Original oral liquid) albuterol sulfate 90 mcg/actuation 2 puff inhalation Q6H PRN 03/17/24 aerosol inhaler shortness of breath or wheezing #8.5 grams Allergies Allergy/AdvReac Type Severity Reaction Status Date / Time No Known Drug Allergies Allergy Verified 01/28/24 11:22 Review of Systems <Jasbir Martin MD - Last Filed: 04/25/24 14:15> Review of Systems Narrative: GENERAL: negative chills, fatigue, malaise, fever, sweats. HEENT: negative sinus pain, ear pain, sore throat RESPIRATORY: negative dyspnea, cough CARDIOVASCULAR: Positive chest pain, palpitations GASTROINTESTINAL: negative nausea, vomiting, abdominal pain : negative dysuria, frequency, hematuria MUSCULOSKELETAL: negative muscle or bony pain SKIN: negative rash, skin lesions NEUROLOGIC: negative weakness, numbness ROS Unobtainable: All systems reviewed & are unremarkable except as noted in HPI and below Patient History <Jasbir Martin MD - Last Filed: 04/25/24 14:15> Medical History (Updated 04/19/24 @ 13:53 by Jasbir Martin MD) Sinus tachycardia Chronic renal failure, stage 3a Urinary retention Acquired buried penis Urinary incontinence Iron deficiency Polyneuropathy, unspecified Anemia of chronic disease Mixed hyperlipidemia Eczema (~1996) Restless leg syndrome (~2013) Tinnitus (~1972) Recurrent sinusitis (~2007) Frequent UTI (~2017) Pancreatitis (~1995) Obstructive sleep apnea of adult (~2013) History of kidney stones Phimosis Lower urinary tract symptoms History of prostate cancer (~2016) Chronic venous insufficiency (04/10/16) Restrictive lung disease (08/16/15) Primary insomnia (08/16/15) Morbid obesity (08/16/15) 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) Surgical History (Updated 10/30/23 @ 10:16 by Vince Goldstein MD) Chronic suprapubic catheter Anesthesia History of common bile duct surgery (~1997) Status post knee surgery (~1993) Family History Brother Prostate cancer Liver cancer Father Parkinson disease Grandfather Hepatitis Grandfather History of heart disease Grandmother Cancer Social History household members: none Smoking Status: Never smoker alcohol intake: current Smoking Status: Never smoker alcohol intake frequency: 0-2 drinks per day Alcohol type: beer Substance Use Type: does not use Exam <Jasbir Martin MD - Last Filed: 04/25/24 14:15> Narrative Exam Narrative: GENERAL: in no distress, not toxic not dyspneic HEAD: Normocephalic. EYES: Pupils equal round ENT: Mucous membranes moist. NECK: Trachea midline. CARDIOVASCULAR: Regular rate and rhythm RESPIRATORY: Clear to auscultation. Breath sounds equal bilaterally. No wheezes, rales, or rhonchi. GASTROINTESTINAL: Abdomen soft, non-tender EXTREMITIES: No gross deformities. BACK: No flank tenderness. NEURO: AOx4. SKIN: Warm and dry PSYCH: Not anxious, is cooperative Initial Vital Signs Initial Vital Signs: Vital Signs Temperature 98.5 F 04/19/24 11:57 Pulse Rate 105 H 04/19/24 11:57 Respiratory Rate 24 04/19/24 11:57 Blood Pressure 131/67 04/19/24 11:57 Pulse Oximetry 95 04/19/24 11:57 Oxygen Delivery Method Room Air 04/19/24 11:57 <Aretha Snell DO - Last Filed: 04/19/24 22:05> Initial Vital Signs Initial Vital Signs: Vital Signs Temperature 98.5 F 04/19/24 11:57 Pulse Rate 105 H 04/19/24 11:57 Respiratory Rate 24 04/19/24 11:57 Blood Pressure 131/67 04/19/24 11:57 Pulse Oximetry 95 04/19/24 11:57 Oxygen Delivery Method Room Air 04/19/24 11:57 Course <Jasbir Martin MD - Last Filed: 04/25/24 14:15> Orders Ordered: Discontinued Medications Aspirin (Aspirin 81 Mg Chew Tab) 324 mg PO NOW ONE Stop: 04/19/24 12:04 Last Admin: 04/19/24 12:24 Dose: Not Given Documented By: Vital Signs Vital signs: Vital Signs - 8 hr 04/19/24 14:30 04/19/24 14:30 04/19/24 15:00 Pulse Rate 105 H 110 H Respiratory Rate 20 20 Blood Pressure 134/70 Pulse Oximetry 94 93 Oxygen Delivery Method 04/19/24 15:00 04/19/24 15:30 04/19/24 15:30 Pulse Rate 100 H Respiratory Rate 20 Blood Pressure 198/70 H 153/80 H Pulse Oximetry 95 Oxygen Delivery Method 04/19/24 16:00 04/19/24 16:00 04/19/24 17:00 Pulse Rate 89 Respiratory Rate 13 Blood Pressure 147/72 H 139/79 Pulse Oximetry 92 Oxygen Delivery Method 04/19/24 17:00 04/19/24 17:30 04/19/24 17:30 Pulse Rate 98 H 95 H Respiratory Rate 24 Blood Pressure 143/69 H Pulse Oximetry 95 95 Oxygen Delivery Method 04/19/24 18:00 04/19/24 18:01 04/19/24 18:01 Pulse Rate 92 H 100 H Respiratory Rate 19 Blood Pressure 149/72 H Pulse Oximetry 93 93 Oxygen Delivery Method 04/19/24 18:30 04/19/24 18:30 04/19/24 19:00 Pulse Rate 99 H Respiratory Rate 24 Blood Pressure 150/71 H 146/62 H Pulse Oximetry 95 Oxygen Delivery Method 04/19/24 19:00 04/19/24 19:30 04/19/24 19:30 Pulse Rate 91 H 90 Respiratory Rate 15 Blood Pressure 149/69 H Pulse Oximetry 97 93 Oxygen Delivery Method Room Air 04/19/24 20:00 04/19/24 20:00 04/19/24 20:30 Pulse Rate 95 H 96 H Respiratory Rate 20 16 Blood Pressure 140/65 Pulse Oximetry 96 97 Oxygen Delivery Method Room Air 04/19/24 20:30 04/19/24 21:00 04/19/24 21:01 Pulse Rate 97 H Respiratory Rate 22 Blood Pressure 149/72 H 148/76 H Pulse Oximetry 99 Oxygen Delivery Method Room Air 04/19/24 21:01 04/19/24 21:30 04/19/24 21:30 Pulse Rate 96 H 93 H Respiratory Rate 21 22 Blood Pressure 169/70 H Pulse Oximetry 98 95 Oxygen Delivery Method Room Air Room Air <Aretha Snell DO - Last Filed: 04/19/24 22:05> Orders Ordered: Discontinued Medications Aspirin (Aspirin 81 Mg Chew Tab) 324 mg PO NOW ONE Stop: 04/19/24 12:04 Last Admin: 04/19/24 12:24 Dose: Not Given Documented By: Vital Signs Vital signs: Vital Signs - 8 hr 04/19/24 14:30 04/19/24 14:30 04/19/24 15:00 Pulse Rate 105 H 110 H Respiratory Rate 20 20 Blood Pressure 134/70 Pulse Oximetry 94 93 Oxygen Delivery Method 04/19/24 15:00 04/19/24 15:30 04/19/24 15:30 Pulse Rate 100 H Respiratory Rate 20 Blood Pressure 198/70 H 153/80 H Pulse Oximetry 95 Oxygen Delivery Method 04/19/24 16:00 04/19/24 16:00 04/19/24 17:00 Pulse Rate 89 Respiratory Rate 13 Blood Pressure 147/72 H 139/79 Pulse Oximetry 92 Oxygen Delivery Method 04/19/24 17:00 04/19/24 17:30 04/19/24 17:30 Pulse Rate 98 H 95 H Respiratory Rate 24 Blood Pressure 143/69 H Pulse Oximetry 95 95 Oxygen Delivery Method 04/19/24 18:00 04/19/24 18:01 04/19/24 18:01 Pulse Rate 92 H 100 H Respiratory Rate 19 Blood Pressure 149/72 H Pulse Oximetry 93 93 Oxygen Delivery Method 04/19/24 18:30 04/19/24 18:30 04/19/24 19:00 Pulse Rate 99 H Respiratory Rate 24 Blood Pressure 150/71 H 146/62 H Pulse Oximetry 95 Oxygen Delivery Method 04/19/24 19:00 04/19/24 19:30 04/19/24 19:30 Pulse Rate 91 H 90 Respiratory Rate 15 Blood Pressure 149/69 H Pulse Oximetry 97 93 Oxygen Delivery Method Room Air 04/19/24 20:00 04/19/24 20:00 04/19/24 20:30 Pulse Rate 95 H 96 H Respiratory Rate 20 16 Blood Pressure 140/65 Pulse Oximetry 96 97 Oxygen Delivery Method Room Air 04/19/24 20:30 04/19/24 21:00 04/19/24 21:01 Pulse Rate 97 H Respiratory Rate 22 Blood Pressure 149/72 H 148/76 H Pulse Oximetry 99 Oxygen Delivery Method Room Air 04/19/24 21:01 04/19/24 21:30 04/19/24 21:30 Pulse Rate 96 H 93 H Respiratory Rate 21 22 Blood Pressure 169/70 H Pulse Oximetry 98 95 Oxygen Delivery Method Room Air Room Air MDM - Chest Pain <Jasbir Martin MD - Last Filed: 04/25/24 14:15> Lab Data 04/19/24 12:11 04/19/24 12:11 Labs: Lab Results 04/19/24 04/19/24 Range/Units 12:11 14:34 WBC 7.8 (4.5-11.0) X10^3/uL RBC 3.46 L (4.5-5.9) X10^6/uL Hgb 11.3 L (13.5-17.5) g/dL Hct 33.5 L (41-53) % MCV 96.8 (80-100) fL MCH 32.6 (26-34) PG MCHC 33.6 (30-36) % RDW 16.7 H (11.6-14.8) % Plt Count 127 L (150-400) X10^3/uL Neut % (Auto) 71.6 (50-75) % Lymph % (Auto) 16.0 L (25-40) % [place] % (Auto) 7.3 (3-14) % Eos % (Auto) 4.4 H (2-4) % Baso % (Auto) 0.7 (0-2) % Neut # (Auto) 5600 (6977-5113) /uL Lymph # (Auto) 1200 (6391-8787) /uL [place] # (Auto) 600 (0-900) /uL Eos # (Auto) 300 (0-450) /uL Baso # (Auto) 100 (0-100) /uL PT 12.2 (9.4-12.5) SECONDS INR 1.1 (0.9-1.3) APTT 34 (25.1-36.5) SECONDS Sodium 138 (137-145) mmol/L Potassium 4.1 (3.4-5.1) mmol/L Chloride 105 (98-107) mmol/L Carbon Dioxide 26 (22-32) mmol/L BUN 16 (9-20) mg/dL Creatinine 0.97 (0.66-1.25) mg/dL Estimated GFR > 60 (>60) mL/min BUN/Creatinine Ratio 16.5 (6-22) Glucose 133 H (80-110) mg/dL Calcium 8.5 (8.4-10.2) mg/dL Magnesium 2.1 (1.6-2.3) mg/dL Total Bilirubin 0.7 (0.2-1.3) mg/dL AST 29 (17-59) IU/L ALT 24 (<50) IU/L Alkaline Phosphatase 108 (38-126) U/L Total Creatine Kinase 165 (55-170) U/L Troponin I < 0.012 < 0.012 (0.01-0.034) ng/mL NT-Pro-B Natriuret Pep 106 (<125) pg/mL Total Protein 7.4 (6.3-8.2) g/dL Albumin 3.8 (3.5-5.0) g/dL Globulin 3.6 (1.7-4.1) g/dL Albumin/Globulin Ratio 1.1 (1.0-2.8) Lipase 106 (23-300) U/L Imaging Data Chest x-ray: Radiologist's Impression: [address] [address] XRay Report Signed Patient: Jose Francisco Akers MR#: [id number] : 1955 Acct:[id number] Age/Sex: 68 / M Date of Service: 04/19/24 Loc: ED Accession Number: [id number] Procedure: XR chest 1V Ordering Provider: Jasbir Martin MD PROCEDURE: XR CHEST 1V INDICATIONS: chest pain TECHNIQUE: One view of the chest was acquired. COMPARISON: [facility], CR, XR CHEST 1V, 12/13/2023, 23:44. [facility], CR, XR CHEST 1V, 06/06/2023, 13:39. FINDINGS: Surgical changes and devices: None. Lungs and pleura: Stable mild left basilar atelectasis. Lungs are otherwise clear. No pleural effusions or pneumothorax. Mediastinum: Mediastinal contours appear normal. Heart size is normal. Bones and chest wall: No suspicious bony lesions. Overlying soft tissues appear unremarkable. IMPRESSION: No acute cardiopulmonary abnormality is seen. Dictated by: Ammon George M.D. on 04/19/2024 at 12:59 Approved by: Ammon George M.D. on 04/19/2024 at 12:59 [facility] Narrative Medical decision making narrative: Patient brought in by ambulance from home for complaints of off and on left- sided chest discomfort. It lasts less than 5 seconds. Has had multiple frequent episodes today. Even while here. No PVCs seen on monitor during these episodes. No nausea shortness breath diaphoresis. Patient has never had echocardiogram in the past has had EKGs in the past. No stress test in the past. Patient denies any chest pain at this time. Has had aspirin by EMS. After history and exam CBC CMP EKG troponin chest x-ray [facility] Medical records reviewed: No recent visit for this complaint. Old EKG reviewed May 2023 Differential considered: Includes but not limited to Lab Test results independently reviewed as above. Pertinent findings: WBC 7.8 hemoglobin 9.3 INR 1.1 sodium 138 potassium 4.1 BUN 16 creatinine 0.97 GFR greater than 60 troponin less than 0.012 x2 Independently reviewed EKG EKG sinus tachycardia first-degree AV block rate 104 right bundle-branch block left anterior fascicular block. Essentially unchanged from June 06, 2023 Imaging studies independently reviewed: Chest x-ray no acute finding Consultations: Spoke with Cardiology [facility], dr sy, I have reviewed with nuclear medicine here and they are not able to accommodate for patient's size, who will need to be transferred to [facility] where they have equipment to accommodate for his size 3:00 p.m.. Spoke with [facility] cardiology, Dr. Flores, unable to accept patient at this time due to capacity. She was able to find an ultrasound patient had done at [facility] last year which looked reassuring. We will try to call for fax report of this. 6:45 p.m.. Spoke with [facility]. Bui, hospitalist Dr. Ascencio, they will accept patient. They do understand patient's habitus and size and need accommodation for his BMI and obesity Treatments: No nitro paste or nitroglycerin indicated this time. No chest pain Re-evaluations: 1:51 p.m.. Updated patient my discussion with Cardiology and transferred to [facility] due to equipment needs. He does agree. 3:20 p.m.. Updated patient with [facility] and no beds available, we will continue looking for other hospital 6:50 p.m.. Updated patient. [facility]. Discussion: Appropriate for transfer due to body habitus and unable to accommodate for stress test due to his weight and body habitus. Diagnosis: Chest pain 7:[address] Martin: Mario: Sign out to Dr Snell <Aretha Snell, - Last Filed: 04/19/24 22:05> Lab Data Labs: Lab Results 04/19/24 04/19/24 Range/Units 12:11 14:34 WBC 7.8 (4.5-11.0) X10^3/uL RBC 3.46 L (4.5-5.9) X10^6/uL Hgb 11.3 L (13.5-17.5) g/dL Hct 33.5 L (41-53) % MCV 96.8 (80-100) fL MCH 32.6 (26-34) PG MCHC 33.6 (30-36) % RDW 16.7 H (11.6-14.8) % Plt Count 127 L (150-400) X10^3/uL Neut % (Auto) 71.6 (50-75) % Lymph % (Auto) 16.0 L (25-40) % [place] % (Auto) 7.3 (3-14) % Eos % (Auto) 4.4 H (2-4) % Baso % (Auto) 0.7 (0-2) % Neut # (Auto) 5600 (5089-0868) /uL Lymph # (Auto) 1200 (3906-8493) /uL [place] # (Auto) 600 (0-900) /uL Eos # (Auto) 300 (0-450) /uL Baso # (Auto) 100 (0-100) /uL PT 12.2 (9.4-12.5) SECONDS INR 1.1 (0.9-1.3) APTT 34 (25.1-36.5) SECONDS Sodium 138 (137-145) mmol/L Potassium 4.1 (3.4-5.1) mmol/L Chloride 105 (98-107) mmol/L Carbon Dioxide 26 (22-32) mmol/L BUN 16 (9-20) mg/dL Creatinine 0.97 (0.66-1.25) mg/dL Estimated GFR > 60 (>60) mL/min BUN/Creatinine Ratio 16.5 (6-22) Glucose 133 H (80-110) mg/dL Calcium 8.5 (8.4-10.2) mg/dL Magnesium 2.1 (1.6-2.3) mg/dL Total Bilirubin 0.7 (0.2-1.3) mg/dL AST 29 (17-59) IU/L ALT 24 (<50) IU/L Alkaline Phosphatase 108 (38-126) U/L Total Creatine Kinase 165 (55-170) U/L Troponin I < 0.012 < 0.012 (0.01-0.034) ng/mL NT-Pro-B Natriuret Pep 106 (<125) pg/mL Total Protein 7.4 (6.3-8.2) g/dL Albumin 3.8 (3.5-5.0) g/dL Globulin 3.6 (1.7-4.1) g/dL Albumin/Globulin Ratio 1.1 (1.0-2.8) Lipase 106 (23-300) U/L [facility] Narrative Medical decision making narrative: Patient brought in by ambulance from home for complaints of off and on left- sided chest discomfort. It lasts less than 5 seconds. Has had multiple frequent episodes today. Even while here. No PVCs seen on monitor during these episodes. No nausea shortness breath diaphoresis. Patient has never had echocardiogram in the past has had EKGs in the past. No stress test in the past. Patient denies any chest pain at this time. Has had aspirin by EMS. After history and exam CBC CMP EKG troponin chest x-ray [facility] Medical records reviewed: No recent visit for this complaint. Old EKG reviewed May 2023 Differential considered: Includes but not limited to Lab Test results independently reviewed as above. Pertinent findings: WBC 7.8 hemoglobin 9.3 INR 1.1 sodium 138 potassium 4.1 BUN 16 creatinine 0.97 GFR greater than 60 troponin less than 0.012 x2 Independently reviewed EKG EKG sinus tachycardia first-degree AV block rate 104 right bundle-branch block left anterior fascicular block. Essentially unchanged from June 06, 2023 Imaging studies independently reviewed: Chest x-ray no acute finding Consultations: Spoke with Cardiology [facility], dr sy, I have reviewed with nuclear medicine here and they are not able to accommodate for patient's size, who will need to be transferred to [facility] where they have equipment to accommodate for his size 3:00 p.m.. Spoke with [facility] cardiology, Dr. Flores, unable to accept patient at this time due to capacity. She was able to find an ultrasound patient had done at [facility] last year which looked reassuring. We will try to call for fax report of this. 6:45 p.m.. Spoke with [facility]. Bui, hospitalist Dr. Ascencio, they will accept patient. They do understand patient's habitus and size and need accommodation for his BMI and obesity Treatments: No nitro paste or nitroglycerin indicated this time. No chest pain Re-evaluations: 1:51 p.m.. Updated patient my discussion with Cardiology and transferred to [facility] due to equipment needs. He does agree. 3:20 p.m.. Updated patient with [facility] and no beds available, we will continue looking for other hospital 6:50 p.m.. Updated patient. [facility]. Discussion: Appropriate for transfer due to body habitus and unable to accommodate for stress test due to his weight and body habitus. Diagnosis: Chest pain 7:[address] Martin: Mario: Sign out to Dr Snell 04/19/2024 Dr. Snell: Patient signed out to myself while awaiting transfer. Patient has been accepted at for chest pain observation for chest pain. Based on habitus we are unable to keep patient for stress testing. EMS asked for repeat EKG prior to transfer they thought patient had a rhythm change rate is 101 OR 198 QRS of 156 with a QTC of 518 right bundle-branch block, left anterior fascicular block with sinus tach. Patient had prior from earlier today does not show any acute ST changes. Patient appears a little bit more irregular but appears to have a P wave with every QRS. No other complaints from patient prior to transfer. Discharge Plan Departure Patient Disposition: [facility] Clinical Impression: Atypical chest pain Prescriptions: No Action fluticasone propionate 50 mcg/actuation spray,suspension 2 spray intranasal DAILY Rx Instructions: administer into each nostril potassium chloride 10 mEq tablet extended release 10 meq PO DAILY Qty: 90 1RF furosemide 20 mg tablet 20 mg PO BID Qty: 180 1RF omeprazole 40 mg capsule,delayed release(DR/EC) 40 mg PO DAILY Qty: 90 3RF Ensure Original Liquid 1 ea PO QID Qty: 66667 12RF albuterol sulfate 90 mcg/actuation HFA aerosol inhaler 2 puff inhalation Q6H PRN (Reason: shortness of breath or wheezing) Qty: 8.5 0RF meloxicam 7.5 mg tablet 7.5 mg PO DAILY Qty: 90 3RF ropinirole 2 mg tablet 2 mg PO BEDTIME Rx Instructions: 2-3 hrs before bedtime. trazodone 50 mg tablet 50 mg PO BEDTIME Rx Instructions: 2-3 hrs before bed ferrous sulfate 325 mg (65 mg iron) tablet 325 mg PO DAILY duloxetine 30 mg capsule,delayed release(DR/EC) 30 mg PO DAILY Qty: 90 3RF Adult Low Dose Aspirin 81 mg Tablet 81 mg PO DAILY Patient Comments: Pt started 03/15 because it's healthy. Not prescribed by provider. Referrals: Vince Goldstein MD [Primary Care Provider] -
[2024-04-19 15:06] LABS: Troponin I < 0.012 ng/mL (0.01-0.034)
--- NOTE | 2024-04-19 21:59 | EKG_ITS ---
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
--- NOTE | 2024-04-19 22:00 | PC.NURSE ---
Report given to Brandy ESCOBEDO on [facility]. Brandy states she would like a nother EKG before the patient is taken to as one was not done since patient arrived. Dr. Snell OK with that , order placed. No new EKG changes Dr. Snell reviewed, patient continuing to be transferred to .
== END 2024-04-19 22:10 | disposition short-term general hospital (02) ==
PROVIDERS: Emergency Medicine; Emergency Provider Emergency Medicine; PCP Internal Medicine
DX: R07.89 Other chest pain (principal); R00.2 Palpitations
CPT/HCPCS: 36415; 71045; 80053; 82550; 83690; 83735; 83880; 84484; 85025; 85610; 85730; 93005; 99284

== ENCOUNTER → 2024-06-06 18:33 | Outpatient (ROUT) | payer MEDICARE, MEDICAID, SELFPAY ==
[2023-06-06 21:25] VITALS: BMI 59.3
[2024-06-06 18:40] LABS: Appearance Urine UA CLOUDY; Bilirubin Urine UA NEGATIVE (NEGATIVE); Color Urine UA YELLOW; Glucose Urine UA NEGATIVE (Negative); Ketones Urine UA NEGATIVE (NEGATIVE); Leukocyte Esterase Urine UA 3+ (NEGATIVE); Nitrite Urine UA POSITIVE (Negative); Occult Blood Urine UA 3+ (Negative); Protein Urine UA NEGATIVE (Negative); Urobilinogen Urine UA 0.2 E.U./dL (0.2); pH Urine UA 6.5 (4.5-8.0)
[2024-06-06 19:23] LABS: Bacteria Urine Few (2-10); RBC Urine 10-30/HPF (0-5/HPF); Urine Volume 10mL (spun); WBC Urine 30-100/HPF (0-5/HPF)
[2024-06-06 19:24] LABS: Culture Indicated Urine Specimen Cultured; Squamous Epithelial Cell Urine None Seen (0-5/HPF)
== END ==
PROVIDERS: PCP Internal Medicine; Visit Provider Urology
DX: R33.9 Retention of urine, unspecified (principal); R31.9 Hematuria, unspecified; Z45.2 Encounter for adjustment and management of vascular access device
CPT/HCPCS: 81001; 87077; 87086

== ENCOUNTER 2024-06-13 16:17 | Emergency (ER) | payer MEDICARE, MEDICAID, SELFPAY ==
[2023-06-06 21:25] VITALS: BMI 59.3
[2024-06-13] VITALS (9 sets, daily range): BP systolic 125–166; BP diastolic 72–81; PULSE 93–114; RESP 18–26; TEMP 37; O2SAT 93–96; BMI 58.5
--- NOTE | 2024-06-13 16:54 | ED_ITS ---
HPI - Male Genitourinary <Aretha Snell DO - Last Filed: 06/14/24 07:06> General Chief complaint: Urogenital-Male Stated complaint: Catheter issues Time Seen by Provider: 06/13/24 16:47 Source: patient, family, RN notes reviewed and old records reviewed Mode of arrival: Wheelchair Limitations: no limitations History of Present Illness HPI Narrative: 68-year-old male with a history of prostate cancer with previous radiation who has chronic indwelling suprapubic catheter, CKD 3A, obesity, obstructive sleep apnea, dyslipidemia, restless leg presents with complaint of about a week of difficulty with drainage from his urinary catheter. Patient states he was having it changed out about a week ago was somewhat painful when switched out and did not really have much drainage home health care nurse came back within the following day tried again had minimal output. Patient was seen in the urology office at [facility] with Dr. Carrington. Catheter was replaced there was flushed had some drainage but patient states had minimal output. Patient states he has been draining from the urethra in the penis. He states this has been going on for about a week he states it seems to be a large amount at times throughout the day or overnight. He states he has had very minimal output overnight and it has been bloody. He states when they flushed the catheter at the urologist office there were some large clots and some which were too big to even be drained from his catheter. Patient denies fevers. No chest pain or shortness of breath, no nausea or vomiting, patient states he has had some abdominal discomfort but describes it as mild. Denies any diarrhea or constipation. States he was having a lot of dysuria when urinating out the urethra the beginning of the week but is minimal now. Patient was started on cefdinir and oxybutynin at the urology clinic in the last week. Patient notes has a history of acute renal failure with urinary retention approximately a year ago. Was ultimately intubated transferred and had 6 L drained from his bladder V during that hospitalization. Patient did have a brief period of dialysis but has not required any dialysis and no longer follows with nephrology. No known drug allergies. No tobacco, drinks 2 or 3 beers daily, no recreational drugs. Dr. Goldstein is his primary care physician. He follows with [facility]. Related Data Home Medications Medication Instructions Recorded Confirmed ropinirole 2 mg tablet 2 mg PO BEDTIME 06/26/20 04/28/24 trazodone 50 mg tablet 50 mg PO BEDTIME 06/26/20 04/28/24 ferrous sulfate 325 mg (65 mg 325 mg PO DAILY 09/25/22 04/28/24 iron) tablet aspirin 81 mg tablet 81 mg PO DAILY 03/17/23 04/28/24 fluticasone propionate 50 2 spray intranasal DAILY 10/21/23 04/28/24 mcg/actuation nasal spray,suspension Previous Rx's Medication Instructions Recorded meloxicam 7.5 mg tablet 7.5 mg PO DAILY #90 tabs 10/20/23 duloxetine 30 mg capsule,delayed 30 mg PO DAILY #90 caps 12/18/23 release omeprazole 40 mg capsule,delayed 40 mg PO DAILY #90 caps 01/19/24 release food supplemt, lactose-reduced 1 ea PO QID #28,440 mL 02/08/24 (Ensure Original oral liquid) albuterol sulfate 90 mcg/actuation 2 puff inhalation Q6H PRN 03/17/24 aerosol inhaler shortness of breath or wheezing #8.5 grams furosemide 20 mg tablet 20 mg PO BID #180 tabs 05/02/24 semaglutide (weight loss) 0.25 0.25 mg (0.5 mL) SUBCUT QWEEK #2 mL 05/09/24 mg/0.5 mL subcutaneous pen injector (Wesanjayvy) potassium chloride 10 mEq 10 meq PO DAILY #90 tabs 05/13/24 tablet,extended release Allergies Allergy/AdvReac Type Severity Reaction Status Date / Time No Known Drug Allergies Allergy Verified 04/28/24 10:55 Review of Systems <Aretha Snell DO - Last Filed: 06/14/24 07:06> Review of Systems ROS Unobtainable: All systems reviewed & are unremarkable except as noted in HPI and below Patient History <Aretha Snell DO - Last Filed: 06/14/24 07:06> Medical History Sinus tachycardia Chronic renal failure, stage 3a Urinary retention Acquired buried penis Urinary incontinence Iron deficiency Polyneuropathy, unspecified Anemia of chronic disease Mixed hyperlipidemia Eczema (~1996) Restless leg syndrome (~2013) Tinnitus (~1972) Recurrent sinusitis (~2007) Frequent UTI (~2017) Pancreatitis (~1995) Obstructive sleep apnea of adult (~2013) History of kidney stones Phimosis Lower urinary tract symptoms History of prostate cancer (~2016) Chronic venous insufficiency (04/10/16) Restrictive lung disease (08/16/15) Primary insomnia (08/16/15) Morbid obesity (08/16/15) 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) Surgical History Chronic suprapubic catheter Anesthesia History of common bile duct surgery (~1997) Status post knee surgery (~1993) Family History Brother Prostate cancer Liver cancer Father Parkinson disease Grandfather Hepatitis Grandfather History of heart disease Grandmother Cancer Social History household members: none Smoking Status: Never smoker alcohol intake: current Smoking Status: Never smoker alcohol intake frequency: 0-2 drinks per day Alcohol type: beer Substance Use Type: does not use Exam <Aretha Snell DO - Last Filed: 06/14/24 07:06> Narrative Exam Narrative: GENERAL: Alert and oriented x three, obese male in mild distress. HEENT: Head normocephalic, atraumatic, EOMI, pupils reactive, face symmetric, moist mucous membranes NECK: Supple, full range of motion CARDIOVASCULAR: Regular rate and rhythm without murmurs, rubs or gallops. RESPIRATORY: Breath sounds equal bilaterally, no wheezes rales or rhonchi. ABDOMEN: Soft, nontender. Normoactive bowel sounds all 4 quadrants. No guarding or rebound, rigidity, no mass, patient has a large pannus. : No CVA tenderness, suprapubic catheter appears in place there is a small amount of urine in the catheter but no additional drains and when flushed fluid comes from around the catheter. Patient's has some slight erythema around the site which he states is his normal. Patient was able to give a sample via his urethra and was sent down. EXTREMITIES: Normal range of motion, no clubbing or edema. Neurovascularly intact NEUROLOGICAL: Cranial nerves II through XII grossly intact. Moving all extremities SKIN: Warm, dry, no petechiae. Initial Vital Signs Initial Vital Signs: Vital Signs Pulse Rate 109 H 06/13/24 16:29 Pulse Oximetry 95 06/13/24 16:29 <Aretha Almanza MD - Last Filed: 06/13/24 19:26> Initial Vital Signs Initial Vital Signs: Vital Signs Pulse Rate 109 H 06/13/24 16:29 Pulse Oximetry 95 06/13/24 16:29 Course <Aretha Snell DO - Last Filed: 06/14/24 07:06> Orders Ordered: Discontinued Medications Sodium Chloride (Normal Saline 0.9%) 1,000 mls @ 1,000 mls/hr IV BOLUS ONE Stop: 06/13/24 18:14 Last Infusion: 06/13/24 19:22 Dose: Infused Documented By: Admin: 06/13/24 17:49 Dose: 1,000 mls/hr Documented By: EMBER Vital Signs Vital signs: Vital Signs - 8 hr 06/13/24 16:29 06/13/24 16:30 06/13/24 16:30 Temperature 98.6 F Pulse Rate 109 H 113 H 106 H Respiratory Rate 18 Blood Pressure 166/81 H Pulse Oximetry 95 96 95 Oxygen Delivery Method Room Air 06/13/24 17:00 06/13/24 17:15 06/13/24 17:15 Temperature Pulse Rate 108 H 103 H Respiratory Rate 26 H 25 H Blood Pressure 125/75 Pulse Oximetry 96 96 Oxygen Delivery Method 06/13/24 17:40 06/13/24 18:00 06/13/24 18:30 Temperature Pulse Rate 114 H 101 H 93 H Respiratory Rate 25 H 23 Blood Pressure Pulse Oximetry 96 94 Oxygen Delivery Method 06/13/24 19:00 06/13/24 19:02 06/13/24 19:02 Temperature Pulse Rate 93 H 97 H Respiratory Rate 24 25 H Blood Pressure 143/72 H Pulse Oximetry 93 95 Oxygen Delivery Method <Aretha Almanza MD - Last Filed: 06/13/24 19:26> Orders Ordered: Discontinued Medications Sodium Chloride (Normal Saline 0.9%) 1,000 mls @ 1,000 mls/hr IV BOLUS ONE Stop: 06/13/24 18:14 Last Infusion: 06/13/24 19:22 Dose: Infused Documented By: Admin: 06/13/24 17:49 Dose: 1,000 mls/hr Documented By: EMBER Vital Signs Vital signs: Vital Signs - 8 hr 06/13/24 16:29 06/13/24 16:30 06/13/24 16:30 Temperature 98.6 F Pulse Rate 109 H 113 H 106 H Respiratory Rate 18 Blood Pressure 166/81 H Pulse Oximetry 95 96 95 Oxygen Delivery Method Room Air 06/13/24 17:00 06/13/24 17:15 06/13/24 17:15 Temperature Pulse Rate 108 H 103 H Respiratory Rate 26 H 25 H Blood Pressure 125/75 Pulse Oximetry 96 96 Oxygen Delivery Method 06/13/24 17:40 06/13/24 18:00 06/13/24 18:30 Temperature Pulse Rate 114 H 101 H 93 H Respiratory Rate 25 H 23 Blood Pressure Pulse Oximetry 96 94 Oxygen Delivery Method 06/13/24 19:00 06/13/24 19:02 06/13/24 19:02 Temperature Pulse Rate 93 H 97 H Respiratory Rate 24 25 H Blood Pressure 143/72 H Pulse Oximetry 93 95 Oxygen Delivery Method MDM - Male Genitourinary <Aretha Snell DO - Last Filed: 06/14/24 07:06> Lab Data 06/13/24 16:33 06/13/24 16:33 Labs: Lab Results 06/13/24 06/13/24 Range/Units 16:33 17:24 WBC 8.7 (4.5-11.0) X10^3/uL RBC 3.38 L (4.5-5.9) X10^6/uL Hgb 11.0 L (13.5-17.5) g/dL Hct 33.4 L (41-53) % MCV 98.8 (80-100) fL MCH 32.4 (26-34) PG MCHC 32.8 (30-36) % RDW 16.2 H (11.6-14.8) % Plt Count 134 L (150-400) X10^3/uL Neut % (Auto) 73.1 (50-75) % Lymph % (Auto) 14.1 L (25-40) % [place] % (Auto) 9.7 (3-14) % Eos % (Auto) 2.3 (2-4) % Baso % (Auto) 0.8 (0-2) % Neut # (Auto) 6400 (4201-7815) /uL Lymph # (Auto) 1200 (4613-7838) /uL [place] # (Auto) 900 (0-900) /uL Eos # (Auto) 200 (0-450) /uL Baso # (Auto) 100 (0-100) /uL Sodium 134 L (137-145) mmol/L Potassium 3.7 (3.4-5.1) mmol/L Chloride 100 (98-107) mmol/L Carbon Dioxide 28 (22-32) mmol/L BUN 14 (9-20) mg/dL Creatinine 1.09 (0.66-1.25) mg/dL Estimated GFR > 60 (>60) mL/min BUN/Creatinine Ratio 12.8 (6-22) Glucose 116 H (80-110) mg/dL Lactate 2.2 H (0.7-2.1) mmol/L Calcium 8.6 (8.4-10.2) mg/dL Total Bilirubin 1.2 (0.2-1.3) mg/dL AST 30 (17-59) IU/L ALT 29 (<50) IU/L Alkaline Phosphatase 105 (38-126) U/L Total Protein 7.3 (6.3-8.2) g/dL Albumin 3.6 (3.5-5.0) g/dL Globulin 3.7 (1.7-4.1) g/dL Albumin/Globulin Ratio 1.0 (1.0-2.8) Lipase 70 (23-300) U/L Procalcitonin 0.094 (<0.5) ng/mL Urine Color Yellow Urine Appearance Cloudy Urine pH 7.0 (4.5-8.0) Ur Specific [place] 1.010 (1.000-1.035) Urine Protein 1+ H (Negative) Urine Glucose (UA) Negative (Negative) g/dL Urine Ketones Negative (NEGATIVE) Urine Occult Blood 2+ H (Negative) Urine Nitrate Negative (Negative) Urine Bilirubin Negative (NEGATIVE) Urine Urobilinogen 1.0 (0.2) E.U./dL Ur Leukocyte Esterase 3+ H (NEGATIVE) Urine RBC 1-5/hpf D (0-5/HPF) Urine WBC 30-100/hpf H (0-5/HPF) Ur Squamous Epith Cells 1-5 /hpf (0-5/HPF) Urine Bacteria Moderate (10-30) H (None) Ur Culture Indicated? Specimen cultured Vol Urine Centrifuged 10ml (spun) MDM Narrative Medical decision making narrative: 68-year-old male with chronic indwelling suprapubic catheter which has not been draining properly, patient started having drainage from the urethra in his penis itself. Patient states he seems like he has having a large amount of output through the penis. He has also had some drainage around the catheter but only when he flushes it. Patient has had it changed 3 times this week twice by home health care and once in the Urology office. He does note there has been blood which has been new and had some large clots when in the urology office and flushed. Patient usually follows with Urology at [facility]. Patient is tachycardic but afebrile. Patient signed out to Dr. Almanza while work up is in progress. On prelim review patient catheter appears in the soft tissue, no in bladder. Patient able to give sample via urethra. Dr. Almanza -care of patient is signed out to me by daytime physician. Independent review of patient and chart performed by myself. CT of the abdomen and pelvis reviewed, suprapubic catheter is in the abdominal wall and not in the bladder, however there does not appear to be spillage of urine. There is mild distention of the bladder with some hydronephrosis, however patient's kidney function is stable. Case discussed with Dr. Damon of [facility], who stated that since there was no spillage of urine into the abdominal wall and this has been going on for 1 week without sepsis or damage to kidneys then there is no need for transfer from emergency department at this time. He took down the patient's personal information and stated that he would reach out to the parachute officer to ensure that the patient can be seen in clinic at 8:30 a.m. tomorrow morning. Case discussed with patient at bedside. He was given a copy of his CT imaging, CT report, and all labs from today's visit. He was counseled on the importance of timely urology follow up at 8:30 a.m. tomorrow morning. Patient states that he will make sure that he makes that appointment. <Aretha Almanza MD - Last Filed: 06/13/24 19:26> Lab Data Labs: Lab Results 06/13/24 06/13/24 Range/Units 16:33 17:24 WBC 8.7 (4.5-11.0) X10^3/uL RBC 3.38 L (4.5-5.9) X10^6/uL Hgb 11.0 L (13.5-17.5) g/dL Hct 33.4 L (41-53) % MCV 98.8 (80-100) fL MCH 32.4 (26-34) PG MCHC 32.8 (30-36) % RDW 16.2 H (11.6-14.8) % Plt Count 134 L (150-400) X10^3/uL Neut % (Auto) 73.1 (50-75) % Lymph % (Auto) 14.1 L (25-40) % [place] % (Auto) 9.7 (3-14) % Eos % (Auto) 2.3 (2-4) % Baso % (Auto) 0.8 (0-2) % Neut # (Auto) 6400 (1751-2958) /uL Lymph # (Auto) 1200 (6921-4630) /uL [place] # (Auto) 900 (0-900) /uL Eos # (Auto) 200 (0-450) /uL Baso # (Auto) 100 (0-100) /uL Sodium 134 L (137-145) mmol/L Potassium 3.7 (3.4-5.1) mmol/L Chloride 100 (98-107) mmol/L Carbon Dioxide 28 (22-32) mmol/L BUN 14 (9-20) mg/dL Creatinine 1.09 (0.66-1.25) mg/dL Estimated GFR > 60 (>60) mL/min BUN/Creatinine Ratio 12.8 (6-22) Glucose 116 H (80-110) mg/dL Lactate 2.2 H (0.7-2.1) mmol/L Calcium 8.6 (8.4-10.2) mg/dL Total Bilirubin 1.2 (0.2-1.3) mg/dL AST 30 (17-59) IU/L ALT 29 (<50) IU/L Alkaline Phosphatase 105 (38-126) U/L Total Protein 7.3 (6.3-8.2) g/dL Albumin 3.6 (3.5-5.0) g/dL Globulin 3.7 (1.7-4.1) g/dL Albumin/Globulin Ratio 1.0 (1.0-2.8) Lipase 70 (23-300) U/L Procalcitonin 0.094 (<0.5) ng/mL Urine Color Yellow Urine Appearance Cloudy Urine pH 7.0 (4.5-8.0) Ur Specific [place] 1.010 (1.000-1.035) Urine Protein 1+ H (Negative) Urine Glucose (UA) Negative (Negative) g/dL Urine Ketones Negative (NEGATIVE) Urine Occult Blood 2+ H (Negative) Urine Nitrate Negative (Negative) Urine Bilirubin Negative (NEGATIVE) Urine Urobilinogen 1.0 (0.2) E.U./dL Ur Leukocyte Esterase 3+ H (NEGATIVE) Urine RBC 1-5/hpf D (0-5/HPF) Urine WBC 30-100/hpf H (0-5/HPF) Ur Squamous Epith Cells 1-5 /hpf (0-5/HPF) Urine Bacteria Moderate (10-30) H (None) Ur Culture Indicated? Specimen cultured Vol Urine Centrifuged 10ml (spun) MDM Narrative Medical decision making narrative: 68-year-old male with chronic indwelling suprapubic catheter which has not been draining properly, patient started having drainage from the urethra in his penis itself. Patient states he seems like he has having a large amount of output through the penis. He has also had some drainage around the catheter but only when he flushes it. Patient has had it changed 3 times this week twice by home health care and once in the Urology office. He does note there has been blood which has been new and had some large clots when in the urology office and flushed. Patient usually follows with Urology at [facility]. Patient is tachycardic but afebrile. Labs CT KUB UA Dr. Almnaza -care of patient is signed out to me by daytime physician. Independent review of patient and chart performed by myself. CT of the abdomen and pelvis reviewed, suprapubic catheter is in the abdominal wall and not in the bladder, however there does not appear to be spillage of urine. There is mild distention of the bladder with some hydronephrosis, however patient's kidney function is stable. Case discussed with Dr. Damon of [facility], who stated that since there was no spillage of urine into the abdominal wall and this has been going on for 1 week without sepsis or damage to kidneys then there is no need for transfer from emergency department at this time. He took down the patient's personal information and stated that he would reach out to the parachute officer to ensure that the patient can be seen in clinic at 8:30 a.m. tomorrow morning. Case discussed with patient at bedside. He was given a copy of his CT imaging, CT report, and all labs from today's visit. He was counseled on the importance of timely urology follow up at 8:30 a.m. tomorrow morning. Patient states that he will make sure that he makes that appointment. Discharge Plan Departure Patient Disposition: Home Clinical Impression: Mechanical complication of suprapubic catheter Instructions: How to Care for a Suprapubic Catheter Activity Restrictions/Additional Instructions: Your CT shows that your suprapubic catheter is positioned in your abdominal wall. There is no spillage of urine anterior abdomen. I discussed your case with Dr. Damon of [facility] u[facility], who stated that he gave your information to his parachute officer and he will see you tomorrow at 8:30 a.m. in the clinic. Prescriptions: No Action fluticasone propionate 50 mcg/actuation spray,suspension 2 spray intranasal DAILY Rx Instructions: administer into each nostril omeprazole 40 mg capsule,delayed release(DR/EC) 40 mg PO DAILY Qty: 90 3RF Ensure Original Liquid 1 ea PO QID Qty: 68412 12RF albuterol sulfate 90 mcg/actuation HFA aerosol inhaler 2 puff inhalation Q6H PRN (Reason: shortness of breath or wheezing) Qty: 8.5 0RF furosemide 20 mg tablet 20 mg PO BID Qty: 180 1RF [place] 0.25 mg/0.5 mL pen injector 0.25 mg SUBCUT QWEEK Qty: 2 0RF Rx Instructions: administer weeks 1 through 4 of therapy potassium chloride 10 mEq tablet extended release 10 meq PO DAILY Qty: 90 3RF meloxicam 7.5 mg tablet 7.5 mg PO DAILY Qty: 90 3RF ropinirole 2 mg tablet 2 mg PO BEDTIME Rx Instructions: 2-3 hrs before bedtime. trazodone 50 mg tablet 50 mg PO BEDTIME Rx Instructions: 2-3 hrs before bed ferrous sulfate 325 mg (65 mg iron) tablet 325 mg PO DAILY duloxetine 30 mg capsule,delayed release(DR/EC) 30 mg PO DAILY Qty: 90 3RF Adult Low Dose Aspirin 81 mg Tablet 81 mg PO DAILY Patient Comments: Pt started 03/15 because it's healthy. Not prescribed by provider. Referrals: Wm Damon MD [Non-Staff] - Vince Goldstein MD [Primary Care Provider] - Stand Alone Forms: Patient Portal/API
--- NOTE | 2024-06-13 17:14 | DI.CT.S_ITS ---
PROCEDURE: CT KIDNEY URETER BLADDER (KUB) INDICATIONS: suprapubic cath, changed x 3, not draining, new urethra drain TECHNIQUE: Axial sections were acquired from the lung bases to the pubic symphysis. Coronal and sagittal reformats were performed. For radiation dose reduction, the following was used: automated exposure control, adjustment of mA and/or kV according to patient size. COMPARISON: [facility], CT, CT KIDNEY URETER BLADDER (KUB), 06/08/2023, 7:47. FINDINGS: Image quality: Diagnostic. Evaluation of the upper abdomen is mildly limited by respiratory motion. Evaluation of the visceral organs is limited due to the lack of intravenous contrast. Lower Chest: Bilateral lower lobe linear atelectasis/scar. Dependent atelectasis. No basilar effusion. Heart base is unremarkable. URINARY: Right Kidney: Moderate hydronephrosis. No nephrolithiasis. Right Ureter: Moderate hydroureter Left Kidney: Moderate hydronephrosis. No nephrolithiasis. Multiple scattered nephroliths measuring up to 4 mm (/47, 49, 54, 55). Left Ureter: Moderate hydroureter. Bladder: Focus of air within the bladder. Normal wall thickness. No stones. ABDOMEN: Liver: No contour-deforming solid mass. Gallbladder: No radiopaque gallstones or wall thickening. Apparent wall thickening is favored to be secondary to motion. Biliary ducts: No biliary dilation. Pancreas: No ductal dilation. Spleen: Size is within normal limits. Adrenal Glands: No adrenal nodules. Stomach and Bowel: No hiatal hernia. Stomach appears grossly normal. Small and large bowel is normal in caliber, without obstruction. Normal appendix (). Extensive sigmoid and colonic diverticulosis, without diverticulitis. Peritoneum: No abnormal intraperitoneal fluid. No free air. Ventral Wall: Suprapubic tube is malpositioned in the anterior abdominal wall with scattered scabbed cutaneous air. The balloon is inflated left of the fistulous tract (). There appears to be a tract that extends from the suprapubic bladder to the anterior abdominal wall. Additional scattered foci of air with soft tissue inflammation in the left lower abdomen (-). Skin thickening of the anterior abdominal wall. Abdominal Nodes: No enlarged retroperitoneal or mesenteric lymph nodes. Vessels: Aorta and inferior vena cava are normal in size. PELVIS: Pelvic Organs: Postsurgical changes of the prostate. Pelvic Nodes: Unremarkable. Miscellaneous: No inguinal hernias are seen. Bones: No acute fractures. No aggressive appearing lytic or blastic osseous lesions. Multilevel flowing anterior osteophytes in the thoracic and upper lumbar spine suggestive of DISH. Multilevel degenerative changes of the spine. IMPRESSION: 1. Suprapubic tube is malpositioned in the anterior abdominal wall with scattered subcutaneous air. The balloon is inflated left of the fistulous tract. There appears to be a tract that extends from the suprapubic bladder to the anterior abdominal wall. 2. Skin thickening of the anterior abdominal wall suggestive of cellulitis. Additional scattered subcutaneous inflammation and air in the left anterior abdominal wall with no discrete fluid collection. Findings are suggestive of inflammation/developing phlegmon. 3. Moderate bilateral hydroureteronephrosis with distension of the urinary bladder. No obstructive nephrolithiasis. 4. Extensive colonic diverticulosis, diverticulitis. Dictated by: Elaine Camacho M.D. on 06/13/2024 at 17:34 Approved by: Elaine Camacho M.D. on 06/13/2024 at 17:42
[2024-06-13 17:30] LABS: Add Manual Diff / Slide Review NO; Basophils Absolute Auto 100 /uL (0-100); Basophils Percent Auto 0.8 % (0-2); Eosinophils Absolute Auto 200 /uL (0-450); Eosinophils Percent Auto 2.3 % (2-4); Hematocrit 33.4 % (41-53); Lymphocytes Absolute Auto 1200 /uL (1100-4500); Lymphocytes Percent Auto 14.1 % (25-40); Mean Corpuscular HGB Conc 32.8 % (30-36); Mean Corpuscular Hemoglobin 32.4 PG (26-34); Mean Corpuscular Volume 98.8 fL (80-100); Monocytes Absolute Auto 900 /uL (0-900); Monocytes Percent Auto 9.7 % (3-14); Neutrophils Absolute Auto 6400 /uL (1500-7000); Neutrophils Percent Auto 73.1 % (50-75); Platelet Count 134 X10^3/uL (150-400); Red Blood Cell Count 3.38 X10^6/uL (4.5-5.9); Red Cell Distribution Width 16.2 % (11.6-14.8); White Blood Cell Count 8.7 X10^3/uL (4.5-11.0)
[2024-06-13 17:33] LABS: Appearance Urine UA CLOUDY; Bilirubin Urine UA NEGATIVE (NEGATIVE); Color Urine UA YELLOW; Glucose Urine UA NEGATIVE (Negative); Ketones Urine UA NEGATIVE (NEGATIVE); Nitrite Urine UA NEGATIVE (Negative); Occult Blood Urine UA 2+ (Negative); Protein Urine UA 1+ (Negative)
[2024-06-13 17:35] LABS: Alanine Aminotransferase 29 IU/L (<50); Albumin 3.6 g/dL (3.5-5.0); Alkaline Phosphatase 105 U/L (38-126); Aspartate Aminotransferase 30 IU/L (17-59); BUN Creatinine Ratio 12.8 (6-22); Bilirubin Total 1.2 mg/dL (0.2-1.3); Blood Urea Nitrogen 14 mg/dL (9-20); Calcium 8.6 mg/dL (8.4-10.2); Carbon Dioxide 28 mmol/L (22-32); Chloride 100 mmol/L (98-107); Estimated Glomerular Filt Rate > 60 mL/min (>60); Globulin 3.7 g/dL (1.7-4.1); Glucose 116 mg/dL (80-110); HEMOLYSIS < 15 (0-50); Lactate (Lactic Acid) 2.2 mmol/L (0.7-2.1); Lipase 70 U/L (23-300); Potassium 3.7 mmol/L (3.4-5.1); Sodium 134 mmol/L (137-145); Total Protein 7.3 g/dL (6.3-8.2)
[2024-06-13 17:38] LABS: Leukocyte Esterase Urine UA 3+ (NEGATIVE)
[2024-06-13 17:40] LABS: Bacteria Urine Moderate (10-30); Culture Indicated Urine Specimen Cultured; RBC Urine 1-5/HPF (0-5/HPF); Squamous Epithelial Cell Urine 1-5 /HPF (0-5/HPF); Urine Volume 10mL (spun); WBC Urine 30-100/HPF (0-5/HPF)
[2024-06-13] MEDS: SODIUM CHLORIDE 0.9% 1,000 ML 1000 ML IV (17:49)
[2024-06-13 17:51] LABS: Procalcitonin 0.094 ng/mL (<0.5)
[2024-06-13 19:01] LABS: Reflexed Lactate in 2 Hours Y
== END 2024-06-13 19:23 | disposition home or self-care (01) ==
PROVIDERS: Emergency Provider Emergency Medicine; PCP Internal Medicine
DX: T83.9XXA Unspecified complication of genitourinary prosthetic device, implant and graft, initial encounter (principal); R00.1 Bradycardia, unspecified
CPT/HCPCS: 36415; 74176; 80053; 81001; 83605; 83690; 84145; 85025; 87040; 87077; 87086; 87186; 96360; 96361; 99284

== ENCOUNTER 2024-06-29 17:22 | Emergency (ER) | payer MEDICARE, MEDICAID, SELFPAY ==
[2023-06-06 21:25] VITALS: BMI 59.3
[2024-06-29 17:40] VITALS: BP 139/66; PULSE 115; RESP 16; O2SAT 94; BMI 57.9
[2024-06-29 20:54] VITALS: BP 133/60
[2024-06-29 20:55] VITALS: PULSE 117; O2SAT 94
--- NOTE | 2024-06-29 21:24 | ED.GENADULT ---
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 A year ago he had a suprapubic catheter placed that worked well for about a year. At the end of May he began noticing that there was only blood coming out of the catheter and small amounts of urine were continuing to leak out of his penis. CT scan was eventually done indicating that the Montoya had pulled out of the bladder and was in the subcutaneous tissue. On June 17 of this year he had a 2nd suprapubic catheter placed by Interventional Radiology at [facility]. This is a new site and new tract created. In the past, with larger catheters, he has so much sediment created that the catheters need to be changed every 3 weeks rather than every 4-6 weeks. He notes that he has had little urine output for the last 24 hours, he contacted his urologist this afternoon at 430 and all of the providers were out of the office. It was recommended that he come to the emergency department. He is complaining of minor discomfort and notes that urine is leaking out of his penis. He describes no fevers or abdominal pain at this time Related Data Home Medications Medication Instructions Recorded Confirmed ropinirole 2 mg tablet 2 mg PO BEDTIME 06/26/20 04/28/24 trazodone 50 mg tablet 50 mg PO BEDTIME 06/26/20 04/28/24 ferrous sulfate 325 mg (65 mg 325 mg PO DAILY 09/25/22 04/28/24 iron) tablet aspirin 81 mg tablet 81 mg PO DAILY 03/17/23 04/28/24 fluticasone propionate 50 2 spray intranasal DAILY 10/21/23 04/28/24 mcg/actuation nasal spray,suspension Previous Rx's Medication Instructions Recorded meloxicam 7.5 mg tablet 7.5 mg PO DAILY #90 tabs 10/20/23 duloxetine 30 mg capsule,delayed 30 mg PO DAILY #90 caps 12/18/23 release omeprazole 40 mg capsule,delayed 40 mg PO DAILY #90 caps 01/19/24 release food supplemt, lactose-reduced 1 ea PO QID #28,440 mL 02/08/24 (Ensure Original oral liquid) albuterol sulfate 90 mcg/actuation 2 puff inhalation Q6H PRN 03/17/24 aerosol inhaler shortness of breath or wheezing #8.5 grams furosemide 20 mg tablet 20 mg PO BID #180 tabs 05/02/24 semaglutide (weight loss) 0.25 0.25 mg (0.5 mL) SUBCUT QWEEK #2 mL 05/09/24 mg/0.5 mL subcutaneous pen injector (Wegovy) potassium chloride 10 mEq 10 meq PO DAILY #90 tabs 05/13/24 tablet,extended release ciprofloxacin HCl 500 mg tablet 500 mg PO BID #14 tabs 06/15/24 (Cipro) Allergies Allergy/AdvReac Type Severity Reaction Status Date / Time No Known Drug Allergies Allergy Verified 04/28/24 10:55 Review of Systems Review of Systems Narrative: Pertinent positive and negative findings as per HPI Patient History Medical History Sinus tachycardia Chronic renal failure, stage 3a Urinary retention Acquired buried penis Urinary incontinence Iron deficiency Polyneuropathy, unspecified Anemia of chronic disease Mixed hyperlipidemia Eczema (~1996) Restless leg syndrome (~2013) Tinnitus (~1972) Recurrent sinusitis (~2007) Frequent UTI (~2017) Pancreatitis (~1995) Obstructive sleep apnea of adult (~2013) History of kidney stones Phimosis Lower urinary tract symptoms History of prostate cancer (~2016) Chronic venous insufficiency (04/10/16) Restrictive lung disease (08/16/15) Primary insomnia (08/16/15) Morbid obesity (08/16/15) 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) Surgical History Chronic suprapubic catheter Anesthesia History of common bile duct surgery (~1997) Status post knee surgery (~1993) Family History Brother Prostate cancer Liver cancer Father Parkinson disease Grandfather Hepatitis Grandfather History of heart disease Grandmother Cancer Social History household members: none Smoking Status: Never smoker alcohol intake: current Smoking Status: Never smoker alcohol intake frequency: 0-2 drinks per day Alcohol type: beer Substance Use Type: does not use Exam Initial Vital Signs Initial Vital Signs: Vital Signs Pulse Rate 115 H 06/29/24 17:40 Respiratory Rate 16 06/29/24 17:40 Blood Pressure 139/66 06/29/24 17:40 Pulse Oximetry 94 06/29/24 17:40 Oxygen Delivery Method Room Air 06/29/24 17:40 General: Alert, appropriate, in no acute distress. BMI of 58 Respiratory: Able to speak in full sentences, no obvious respiratory distress Skin: No obvious rashes, warm and dry Abd: He has a suprapubic catheter in place just to the right of the original suprapubic site. There was no drainage around the site. No redness no blood. The catheter itself does appear to be clogged with sediment. Flushing has been ineffective in clearing the catheter Course Orders Ordered: Discontinued Medications Levofloxacin (Levofloxacin 250 Mg Tablet) 750 mg PO NOW ONE Stop: 06/29/24 22:55 Last Admin: 06/29/24 23:07 Dose: 750 mg Documented By: ROS Vital Signs Vital signs: Vital Signs - 8 hr 06/29/24 17:40 06/29/24 20:54 06/29/24 20:55 Pulse Rate 115 H 117 H Respiratory Rate 16 Blood Pressure 139/66 133/60 Pulse Oximetry 94 94 Oxygen Delivery Method Room Air 06/29/24 21:59 Pulse Rate 112 H Respiratory Rate 18 Blood Pressure 147/62 H Pulse Oximetry 94 Oxygen Delivery Method Medical Decision Making [facility] Narrative Medical decision making narrative: CC: Suprapubic catheter problem Complicating co-morbidities: Primary urology is at [facility]. Complex catheter and supra pubic catheter issues Data collected from: patient Social determinants of health that may influence the patients condition: Medical records reviewed: Notes from [facility] are reviewed including the note from urology nurse today Differential considered: Clogged catheter, displaced catheter Exam documented above, pertinent findings include: Catheter currently sutured in place, no drainage Consultations: Discussed with Dr. More, urology. He will come in and try to replace the catheter over a wire Treatments: Oral levofloxacin 750 mg after catheter was placed over a wire Re-evaluations: Catheter is draining clear yellow urine patient is very satisfied with his care Discussion: 68-year-old gentleman with a history of prostate cancer multiple complications and issues with suprapubic catheter new suprapubic catheter placed on June 17 and now clogged. As the tract has not fully formed needs to be replaced over a wire and very graciously came into do that this evening. Findings reviewed with the patient, questions were answered he will follow up with both Dr. More and Dr. Carrington. You safe for discharge with no additional indication for further imaging, lab work or hospitalization. Discharge Plan Departure Patient Disposition: Home Clinical Impression: Indwelling catheter replaced Blocked suprapubic catheter Qualifiers: Encounter type: initial encounter Qualified Code(s): T83.090A - Other mechanical complication of cystostomy catheter, initial encounter Activity Restrictions/Additional Instructions: Thank you for coming in today Dr More was able to come in this evening and replace this new suprapubic catheter over a wire. It does appear to be draining nicely at this point. You will need to follow up with either Dr. More or Dr Carrington. You were given a single dose of antibiotics to last for 24 hours as the catheter replacement was not perfectly sterile today. If you find that you are having new symptoms, additional catheter problems or new findings please feel free to return to the ER You [facility] at [facility], Prescriptions: No Action fluticasone propionate 50 mcg/actuation spray,suspension 2 spray intranasal DAILY Rx Instructions: administer into each nostril omeprazole 40 mg capsule,delayed release(DR/EC) 40 mg PO DAILY Qty: 90 3RF Ensure Original Liquid 1 ea PO QID Qty: 31881 12RF albuterol sulfate 90 mcg/actuation HFA aerosol inhaler 2 puff inhalation Q6H PRN (Reason: shortness of breath or wheezing) Qty: 8.5 0RF furosemide 20 mg tablet 20 mg PO BID Qty: 180 1RF Wegovy 0.25 mg/0.5 mL pen injector 0.25 mg SUBCUT QWEEK Qty: 2 0RF Rx Instructions: administer weeks 1 through 4 of therapy potassium chloride 10 mEq tablet extended release 10 meq PO DAILY Qty: 90 3RF meloxicam 7.5 mg tablet 7.5 mg PO DAILY Qty: 90 3RF ropinirole 2 mg tablet 2 mg PO BEDTIME Rx Instructions: 2-3 hrs before bedtime. trazodone 50 mg tablet 50 mg PO BEDTIME Rx Instructions: 2-3 hrs before bed ferrous sulfate 325 mg (65 mg iron) tablet 325 mg PO DAILY duloxetine 30 mg capsule,delayed release(DR/EC) 30 mg PO DAILY Qty: 90 3RF Adult Low Dose Aspirin 81 mg Tablet 81 mg PO DAILY Patient Comments: Pt started 03/15 because it's healthy. Not prescribed by provider. ciprofloxacin HCl [Cipro] 500 mg tablet 500 mg PO BID Qty: 14 0RF Referrals: Vince Goldstein MD [Primary Care Provider] - Stand Alone Forms: Patient Portal/API
[2024-06-29 21:59] VITALS: BP 147/62; PULSE 112; RESP 18; O2SAT 94
[2024-06-29 22:00] VITALS: BP 147/62; PULSE 115; O2SAT 94
--- NOTE | 2024-06-29 22:39 | PM.CN ---
History of Present Illness Consult details Date Patient Seen: 06/29/24 Time Patient Seen: 22:15 Chief complaint: Catheter Plugged Up Narrative: 68 y/o M w/ h/o high-risk prostate cancer treated with XRT and ADT (completed in 2016) who has been managed with an SPT tube for more than a year now. Briefly, he was noted to have a buried penis that prevented a cystoscopy for work-up of gross hematuria. He was evaluated at Urology for this condition and was not offered surgical intervention of his buried penis secondary to his body habitus and morbid obesity. He then developed urosepsis and was admitted at in May. Urology at that time was unable to place a ni catheter and he was ultimately transferred to [facility] where an SPT was placed by IR as Urology was unable to place one. He reports that he will typically have thick sediment and recurrent UTI's with his SPT. It began to clog up this afternoon and was not draining. He has transportation issues, and therefore, presented to ED for further evaluation. Of note, he had a new SPT tract placed on Jun 17, 2024 at [facility]. As his SPT was found to be not draining, Urology was consulted regarding possible SPT exchange. Meds Home Medications and Allergies Home Medications Medication Instructions Recorded Confirmed Type ropinirole 2 mg tablet 2 mg PO BEDTIME 06/26/20 04/28/24 History trazodone 50 mg tablet 50 mg PO BEDTIME 06/26/20 04/28/24 History ferrous sulfate 325 mg (65 mg 325 mg PO DAILY 09/25/22 04/28/24 History iron) tablet aspirin 81 mg tablet 81 mg PO DAILY 03/17/23 04/28/24 History meloxicam 7.5 mg tablet 7.5 mg PO DAILY #90 tabs 10/20/23 04/28/24 Rx fluticasone propionate 50 2 spray intranasal DAILY 10/21/23 04/28/24 History mcg/actuation nasal spray,suspension duloxetine 30 mg capsule,delayed 30 mg PO DAILY #90 caps 12/18/23 04/28/24 Rx release omeprazole 40 mg capsule,delayed 40 mg PO DAILY #90 caps 01/19/24 04/28/24 Rx release food supplemt, lactose-reduced 1 ea PO QID #28,440 mL 02/08/24 04/28/24 Rx (Ensure Original oral liquid) albuterol sulfate 90 mcg/actuation 2 puff inhalation Q6H PRN 03/17/24 04/28/24 Rx aerosol inhaler shortness of breath or wheezing #8.5 grams furosemide 20 mg tablet 20 mg PO BID #180 tabs 05/02/24 Rx semaglutide (weight loss) 0.25 0.25 mg (0.5 mL) SUBCUT QWEEK #2 mL 05/09/24 Rx mg/0.5 mL subcutaneous pen injector (Wegovy) potassium chloride 10 mEq 10 meq PO DAILY #90 tabs 05/13/24 Rx tablet,extended release ciprofloxacin HCl 500 mg tablet 500 mg PO BID #14 tabs 06/15/24 Rx (Cipro) Allergies Allergy/AdvReac Type Severity Reaction Status Date / Time No Known Drug Allergies Allergy Verified 04/28/24 10:55 Review of Systems Review of Systems Narrative: CONSTITUTIONAL: Denies weight loss, fevers, chills. HEENT: Denies change in vision, hearing. RESP: Denies SOB, cough. CV: Denies palpations, CP. GI: Denies abodminal pain, nausea, vomiting, diarrhea. : Denies dysuria, hematuria, inability to void. MSK: Denies myalgia, joint pain. SKIN: Denies rash, pruritus. NEURO: Denies headache, syncope. PSYCH: Denies recent change in mood, anxiety, depression. Exam Vital Signs (past 8 hours): - 06/29/24 17:40 06/29/24 20:54 06/29/24 20:55 Pulse Rate 115 H 117 H Respiratory Rate 16 Blood Pressure 139/66 133/60 Pulse Oximetry 94 94 Oxygen Delivery Method Room Air 06/29/24 21:59 Pulse Rate 112 H Respiratory Rate 18 Blood Pressure 147/62 H Pulse Oximetry 94 Oxygen Delivery Method Oxygen Delivery Method Room Air Narrative Exam Narrative: GEN: Alert and oriented X3. No acute distress. Well-nourished. EYES: PERRLA, EOMI. HENT: Moist mucus membranes, no scleral icterus, normal neck ROM. RESP: Unlabored breathing, equal rise and fall of chest bilaterally, no cyanosis appreciated. CV: No peripheral edema, unremarkable heart rate. ABD: Soft, non-tender, non-distended, no palpable masses. Morbidly obese male. : Buried penis. SPT not draining, attempted to pass a guidewire through his ni catheter, this was unsuccessful. Therefore, the SPT was deflated and removed and a new 16Fr wales tip catheter was placed through his SP tract. 10cc of sterile water was utilized for balloon insufflation with immediate drainage of dark and cloudy yellow urine. EXT: No edema, clubbing or cyanosis. SKIN: No rashes or lesions. NEURO: No focal neurologic deficits, CN II-XII grossly intact. PSYCH: Cooperative, appropriate mood and affect. [facility] Medical History Sinus tachycardia Chronic renal failure, stage 3a Urinary retention Acquired buried penis Urinary incontinence Iron deficiency Polyneuropathy, unspecified Anemia of chronic disease Mixed hyperlipidemia Eczema (~1996) Restless leg syndrome (~2013) Tinnitus (~1972) Recurrent sinusitis (~2007) Frequent UTI (~2017) Pancreatitis (~1995) Obstructive sleep apnea of adult (~2013) History of kidney stones Phimosis Lower urinary tract symptoms History of prostate cancer (~2016) Chronic venous insufficiency (04/10/16) Restrictive lung disease (08/16/15) Primary insomnia (08/16/15) Morbid obesity (08/16/15) 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) Surgical History Chronic suprapubic catheter Anesthesia History of common bile duct surgery (~1997) Status post knee surgery (~1993) Family History Brother Prostate cancer Liver cancer Father Parkinson disease Grandfather Hepatitis Grandfather History of heart disease Grandmother Cancer Social History household members: none Tobacco & Substance Use Smoking Status: Never smoker alcohol intake: current Assessment & Plan Assessment and plan (1) History of prostate cancer: Problem details: Lupron and radiation therapy Status: Inactive Plan: 68 y/o M w/ h/o high-risk prostate cancer s/p ADT and XRT completed in 2017 who was noted to have a clogged SPT. Unable to advance a guidewire through his SPT, therefore, it was removed and a new 16Fr wales tip catheter was placed through his SP tract. 10cc of sterile water was utilized for balloon insufflation with immediate drainage of dark and cloudy yellow urine. Discussed that we would give him a one time dose of antibiotics for prophylaxis. Will also recommend that he start Methenamine Hippurate BID to help prevent future issues with Raphael's. This was sent to his pharmacy of record. He would like to transition all of his [facility] to [facility], will send a message to our schedulers. (2) Suprapubic catheter dysfunction: Status: Acute Plan: Please see plan above. Time-Based Coding :: [TOTAL MINUTES] spent with patient and on the chart (including review of chart, obtaining history, exam, reviewing outside data, placing orders, documenting exam and treatment plan, and counseling patient) on [DATE]. PROFEE Charge Codes Inpatient or Observation consultation: [id number]
[2024-06-29] MEDS: levoFLOXacin 250 MG TABLET 750 MG PO (23:07)
[2024-06-29 23:32] VITALS: BP 143/61; PULSE 111; RESP 18; O2SAT 95
== END 2024-06-29 23:32 | disposition home or self-care (01) ==
PROVIDERS: Emergency Provider Emergency Medicine; PCP Internal Medicine
DX: T83.010A Breakdown (mechanical) of cystostomy catheter, initial encounter (principal); T83.090A Other mechanical complication of cystostomy catheter, initial encounter; Z85.46 Personal history of malignant neoplasm of prostate
CPT/HCPCS: 99283

== ENCOUNTER 2024-09-07 13:18 | Day surgery (SDC) | payer MEDICARE, MEDICAID, SELFPAY ==
[2023-06-06 21:25] VITALS: BMI 59.3
[2024-09-07] VITALS (9 sets, daily range): BP systolic 126–179; BP diastolic 57–91; PULSE 98–123; RESP 20–30; TEMP 36.1–36.8; O2SAT 92–99; BMI 57.7
[2024-09-07] MEDS: LACTATED RINGERS 1,000 ML 21 ML IV (14:06)
[2024-09-07] MEDS: ALBUTEROL/IPRATROPIUM 3 ML AMPUL INH (14:12)
--- NOTE | 2024-09-07 14:36 | PM.PREOP ---
Pre-operative Note COVID-19 COVID-19 status: Not tested Interval Note History & Physical reviewed/Exam performed by Physician: Yes Changes to H&P: No
--- NOTE | 2024-09-07 15:10 | SUR.OPER ---
Lithotomy on padded OR bed, head on pillow, arms secured on padded arm boards at <90 degrees abduction. Legs secured in padded yellow fins stirrups.
[2024-09-07] MEDS: CEFAZOLIN VIAL 3 GM in SODIUM CHLORIDE 0.9% 100 ML IV (15:24)
[2024-09-07] MEDS: ACETAMINOPHEN IV 1,000 MG/100 ML VIAL 400 MG IV (15:25)
--- NOTE | 2024-09-07 16:39 | PM.OP.1 ---
Procedure & Clinicians Procedure: Cystoscopy Ni catheter placement Same procedure as scheduled: No (Unable to place suprapubic tube) Indications: 68 y/o M w/ h/o high-risk prostate cancer treated w/ ADT and XRT who was noted to have incomplete bladder emptying and a buried penis that was chronically managed with a suprapubic tube. Unfortunately, his SPT became dislodged on the morning of 05 Sep 2024 and was unable to be replaced via a flexible cystoscope through his SP tract on the afternoon of 06 Sep 2024 in Urology clinic. Therefore, he was consented for a cystoscopy with possible SPT replacement. Surgeon: Jacob More Click Yes if Unassisted: Yes Anesthesia Type: General Operative Notes Findings: Completely closed suprapubic tract, phimotic foreskin Closure Type: not applicable Specimen(s): none sent Applied: catheter Estimated Blood Loss (mL): 10 Blood products transfused: none Procedure in detail: Procedures: 1) Cystoscopy 2) Ni catheter placement Indication: Patient was identified in the preoperative holding area and consent confirmed. He was then brought to the operating room where general anesthesia was induced.? He was placed in the low lithotomy position. He was then prepped and draped in the usual sterile fashion. A surgical timeout was conducted and all were in agreement. A flexible cystoscope was attempted to be advanced through his suprapubic tract and into his bladder, however, this was unsuccessful as the proximal 1/4 of his tract had completely closed. Therefore, the bladder was unable to be entered through his suprapubic tract. The phimotic foreskin was then freed from his glans penis enough to allow for a flexible ureteroscope to be advanced through his urethra and into his bladder. A 0.035 sensor tip ureteral guidewire was then advanced through the ureteroscope and into his bladder and the ureteroscope was removed. A flexible cystoscope was then advanced over the aforementioned guidewire and into his bladder and the guidewire was removed. Using the [employer] SPT introducer set, the needle and sheath were advanced more than a dozen times a few finger breadths above his suprapubic bone towards the direction of his bladder, however, urine was never noted to flow through the sheath and onto the operative field (likely because the sheath and needle were not long enough secondary to his morbid obesity). Therefore, the decision was made to abort the suprapubic tube placement and simple place a ni catheter. Therefore, the ureteral guidewire was readvanced through the cystoscope and into his bladder and the cystoscope was removed. An 18Fr [place] tip catheter was then advanced over the guidewire and into his bladder. 10cc of sterile water was utilized for balloon insufflation.? Anesthesia was reversed, he was extubated in the OR and transferred to the PACU in stable condition for recovery. Complications: none Post-operative Condition: stable Disposition: PACU Plan for aftercare: Discharge home from PACU. Will return to Urology clinic on 12 Sep 2024 to have his ni catheter exchanged over a guidewire to ensure that it does not stop draining from encrustations (which has happened previously to his suprapubic tubes).
--- NOTE | 2024-09-07 17:25 | SUR.PHASEI ---
1725 spo2 decreased to 86% on room air with increased resp rate/effort, improved on 3l nc to 96%. Pt and caregiver confirm pt will not have help available at home tonight following discharge. MD notified of concerns r/t safe discharge.
--- NOTE | 2024-09-07 17:54 | PM.CN ---
History of Present Illness Consult details Date Patient Seen: 09/07/24 Time Patient Seen: 17:55 Chief complaint: SDC Reason for consult: Postoperative hypoxia. Requesting provider: Jacob More Narrative: Was asked to see this patient who had postoperative hypoxemia. The patient presented for an exchange of his suprapubic catheter which she has had an place due to bladder outlet obstruction from prostate cancer. The patient has a history of prostate cancer treated with ADT and XRT and has history of incomplete bladder emptying and a buried penis which is chronically been managed with a suprapubic tube. This tube became dislodged and September 05. An attempt was made to replace the tube with a flexible cystoscope in clinic in September 06 but this was not successful. The patient presented today for cystoscopy and possible suprapubic tube placement which was again not successful. However a Montoya catheter was placed successfully. The patient has morbid obesity and did have hypoxia after the procedure. He was admitted for observation overnight. The patient denies any difficulties with breathing or chest pain. No recent URI symptoms. He denies any pain. He was able to stand and transfer from the transport gurney to the bed without difficulty. Meds Home Medications and Allergies Home Medications Medication Instructions Recorded Confirmed Type ropinirole 2 mg tablet 2 mg PO BEDTIME 06/26/20 09/07/24 History trazodone 50 mg tablet 50 mg PO BEDTIME 06/26/20 09/07/24 History ferrous sulfate 325 mg (65 mg 325 mg PO DAILY 09/25/22 09/06/24 History iron) tablet meloxicam 7.5 mg tablet 7.5 mg PO DAILY #90 tabs 10/20/23 09/07/24 Rx duloxetine 30 mg capsule,delayed 30 mg PO DAILY #90 caps 12/18/23 09/07/24 Rx release omeprazole 40 mg capsule,delayed 40 mg PO DAILY #90 caps 01/19/24 09/07/24 Rx release food supplemt, lactose-reduced 1 ea PO QID #28,440 mL 02/08/24 09/06/24 Rx (Ensure Original oral liquid) albuterol sulfate 90 mcg/actuation 2 puff inhalation Q6H PRN 03/17/24 09/06/24 Rx aerosol inhaler shortness of breath or wheezing #8.5 grams furosemide 20 mg tablet 20 mg PO BID #180 tabs 05/02/24 09/07/24 Rx potassium chloride 10 mEq 10 meq PO DAILY #90 tabs 05/13/24 09/06/24 Rx tablet,extended release methenamine hippurate 1 gram tablet 1 g PO BID #180 tabs 07/01/24 09/06/24 Rx citric ac 1980.6 mg-glucono 59.4 30 ml irrigation TID 07/27/24 09/06/24 History mg-mag carb 980.4 mg/30 mL irrig.soln (Renacidin) oxycodone 5 mg tablet 5 mg PO Q8H PRN pain (scale score 09/07/24 Rx 7-10) #7 tabs Allergies Allergy/AdvReac Type Severity Reaction Status Date / Time No Known Drug Allergies Allergy Verified 09/07/24 13:46 Review of Systems Review of Systems Narrative: All else reviewed and otherwise unremarkable except as noted in the history and physical. Exam Vital Signs (past 8 hours): - 09/07/24 14:07 09/07/24 16:45 09/07/24 16:52 Temperature 98.2 F 97.0 F L 97.0 F L Pulse Rate 123 H 109 H 105 H Respiratory Rate 22 30 H 20 Blood Pressure 149/68 H 170/74 H 179/74 H Pulse Oximetry 92 97 99 Oxygen Delivery Method Room Air Nasal Cannula Simple Mask Oxygen Flow Rate 8 10 09/07/24 17:00 09/07/24 17:15 09/07/24 17:20 Temperature 97.1 F L 97.1 F L 97.4 F L Pulse Rate 105 H 104 H 105 H Respiratory Rate 24 22 24 Blood Pressure 168/58 H 140/72 126/91 H Pulse Oximetry 92 97 96 Oxygen Delivery Method Room Air Nasal Cannula Room Air Oxygen Flow Rate 3 09/07/24 17:40 Temperature 97.1 F L Pulse Rate 98 H Respiratory Rate 21 Blood Pressure 152/72 H Pulse Oximetry 96 Oxygen Delivery Method Nasal Cannula Oxygen Flow Rate 3 Oxygen Delivery Method Nasal Cannula Oxygen Flow Rate 3 Narrative Exam Narrative: NAD, alert and oriented, fluent speech, calm. Morbidly obese, pleasant. Normocephalic skull, EOMI, anicteric sclera, symmetric pupils. Oropharynx unremarkable, no droop. Neck supple, midline trachea, no adenopathy. Lungs clear, normal rate and effort. Heart regular, no murmur gallop or rub. Abdomen is soft, non distended and non tender. Extremities are free of edema. Skin is free of rash or lesions. Joints are not swollen or deformed. Judgment appears to be normal. Montoya catheter is in place. [facility] Medical History BMI 50.0-59.9, adult (08/2024) Sepsis (06/2023) Suprapubic catheter dysfunction Sinus tachycardia Chronic renal failure, stage 3a Acquired buried penis Urinary retention Urinary incontinence Iron deficiency Polyneuropathy, unspecified Anemia of chronic disease Mixed hyperlipidemia Eczema (~1996) Restless leg syndrome (~2013) Tinnitus (~1972) Recurrent sinusitis (~2007) Frequent UTI (~2017) Pancreatitis (~1995) Obstructive sleep apnea of adult (~2013) History of kidney stones Phimosis Lower urinary tract symptoms History of prostate cancer (~2016) Chronic venous insufficiency (04/10/16) Restrictive lung disease (08/16/15) Primary insomnia (08/16/15) Morbid obesity (08/16/15) 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) Surgical History History of transurethral resection of bladder tumor (TURBT) (2023) Chronic suprapubic catheter Anesthesia History of common bile duct surgery (~1997) Status post knee surgery (~1993) Family History Brother Prostate cancer Liver cancer Father Parkinson disease Grandfather Hepatitis Grandfather History of heart disease Grandmother Cancer Social History household members: none Tobacco & Substance Use Smoking Status: Never smoker alcohol intake: current Assessment & Plan Assessment & Plan narrative: 1. Postoperative hypoxia, present on admission and active. 2. Status post attempt at cystoscopy and suprapubic catheter placement, unsuccessful. Montoya catheter was placed. 3. Morbid obesity with the IN 57.8, present on admission and active. 4. Obstructive sleep apnea, present on admission and active. 5. Restrictive lung disease, present on admission and active. PLAN: -observe oxygenation overnight, wean oxygen as able. -RT consult for CPAP Notified primary care, Dr. Goldstein of his overnight observation. Full code. Time-Based Coding :: 35 min spent with patient and on the chart (including review of chart, obtaining history, exam, reviewing outside data, placing orders, documenting exam and treatment plan, and counseling patient) on 09/07.
[2024-09-08 00:59] VITALS: BP 124/59; PULSE 113; RESP 18; TEMP 36; O2SAT 91
[2024-09-08 08:00] VITALS: BP 160/75; PULSE 104; RESP 16; TEMP 36.4; O2SAT 96
--- NOTE | 2024-09-08 08:01 | P.PN_ITS ---
Subjective Subjective Date Patient Seen: 09/08/24 Time Patient Seen: 08:02 Interval history: 68 y/o M w/ h/o high-risk prostate cancer treated w/ ADT and XRT who was noted to have incomplete bladder emptying and a buried penis that was chronically managed with a suprapubic tube. Unfortunately, his SPT became dislodged on the morning of 05 Sep 2024 and was unable to be replaced via a flexible cystoscope through his SP tract on the afternoon of 06 Sep 2024 in Urology clinic. Therefore, he was consented for a cystoscopy with possible SPT replacement. Unfortunately, an SPT was unable to be replaced and a ni catheter was simply inserted. He was admitted overnight due to hypoxemia in the postoperative setting. He otherwise admits to an uneventful evening in the hospital. Exam Vital Signs (past 8 hours): - 09/08/24 00:59 Temperature 96.8 F L Pulse Rate 113 H Respiratory Rate 18 Blood Pressure 124/59 L Pulse Oximetry 91 Oxygen Flow Rate 0 Oxygen Delivery Method Nasal Cannula Oxygen Flow Rate 0 Narrative Exam Narrative: GEN: Alert and oriented X3. No acute distress. Well-nourished. EYES: PERRLA, EOMI. HENT: Moist mucus membranes, no scleral icterus, normal neck ROM. RESP: Unlabored breathing, equal rise and fall of chest bilaterally, no cyanosis appreciated. CV: No peripheral edema, unremarkable heart rate. ABD: Soft, non-tender, non-distended, no palpable masses. : Prior suprapubic tracts covered with bandage. Ni draining clear yellow urine. EXT: No edema, clubbing or cyanosis. SKIN: No rashes or lesions. NEURO: No focal neurologic deficits, CN II-XII grossly intact. PSYCH: Cooperative, appropriate mood and affect. [facility] Medical History BMI 50.0-59.9, adult (08/2024) Sepsis (06/2023) Suprapubic catheter dysfunction Sinus tachycardia Chronic renal failure, stage 3a Acquired buried penis Urinary retention Urinary incontinence Iron deficiency Polyneuropathy, unspecified Anemia of chronic disease Mixed hyperlipidemia Eczema (~1996) Restless leg syndrome (~2013) Tinnitus (~1972) Recurrent sinusitis (~2007) Frequent UTI (~2017) Pancreatitis (~1995) Obstructive sleep apnea of adult (~2013) History of kidney stones Phimosis Lower urinary tract symptoms History of prostate cancer (~2016) Chronic venous insufficiency (04/10/16) Restrictive lung disease (08/16/15) Primary insomnia (08/16/15) Morbid obesity (08/16/15) 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) Surgical History History of transurethral resection of bladder tumor (TURBT) (2023) Chronic suprapubic catheter Anesthesia History of common bile duct surgery (~1997) Status post knee surgery (~1993) Family History Brother Prostate cancer Liver cancer Father Parkinson disease Grandfather Hepatitis Grandfather History of heart disease Grandmother Cancer Social History household members: spouse and none Smoking Status: Never smoker alcohol intake: current Assessment & Plan Assessment and plan (1) Chronic suprapubic catheter: Status: Chronic Plan: 68 y/o M w/ h/o high-risk prostate cancer treated w/ ADT and XRT who was noted to have incomplete bladder emptying and a buried penis that was chronically managed with a suprapubic tube. Unfortunately, his SPT became dislodged on the morning of 05 Sep 2024 and was unable to be replaced via a flexible cystoscope through his SP tract on the afternoon of 06 Sep 2024 in Urology clinic. Therefore, he was consented for a cystoscopy with possible SPT replacement. Unfortunately, an SPT was unable to be replaced and a ni catheter was simply inserted. He was admitted overnight due to hypoxemia in the postoperative setti ng. Discussed that he otherwise has been weaned off of his oxygen and is recovering as expected, therefore, will discharge him home this morning and have him return to Urology clinic on 12 Sep 2024 at 1300 to have his ni catheter exchanged. (2) Bladder cancer: Qualifiers: Bladder location: unspecified site Qualified Code(s): C67.9 - Malignant neoplasm of bladder, unspecified Status: Chronic (3) Prostate cancer: Status: Acute Time-Based Coding :: [TOTAL MINUTES] spent with patient and on the chart (including review of chart, obtaining history, exam, reviewing outside data, placing orders, documenting exam and treatment plan, and counseling patient) on [DATE]. Quality VTE Deep Vein Thrombosis/Pulmonary Embolism Present on Admission: No IH PROFEE Charge codes Subsequent inpatient/observation care: [id number]
[2024-09-08] MEDS: OXYCODONE/APAP 5/325 PREPACK 1 BOTTLE MISC (10:58)
--- NOTE | 2024-09-08 11:07 | PC.NURSE ---
D/c instructions reviewed with patient. Since pt's pharmacy is closed today due to the holiday, the patient was given enough oxycodone from the inpatient pharmacy to get by until tomorrow when he can go product picker his prescription. IV removed. Pt exited via w/c with RN to private vehicle.
--- NOTE | 2024-09-08 11:48 | CM.DANOTE ---
Initial DCP Assessment Visit Note Reviewed EMR and team rounds for pt's medical status and updates. Met with pt at bedside to introduce self and role, pt was found to be alert/oriented, sitting in the recliner all dressed and ready for home d/c. Pt resides alone in his own home here in [place]. His sister will be transporting him home this afternoon. Payor: [facility] Attending: Dr. More Pt is a 68 year-old M who was placed in OBS following a planned Urology procedure for an exchange of his suprapubic catheter. He's had that in place due to bladder outlet obstruction and prostate cancer, however replacing the tube was unsuccessful after 2-attempts. Dr. More then placed a ni catheter until pt can be scheduled elsewhere for a more complex scheduled procedure in a higher level care hospital. Pt did have some hypoxemia postoperatively, so was monitored overnight for improvement of oxygenation. Today, he feeling much improved and back at his baseline. He denies any CM assistance or resource needs at this time. Discharge Planning/Care Management Advanced directive, confirm from FAMILY Start: 09/07/24 18:24 Freq: Q24H Status: Discharge Protocol: Document 09/07/24 18:24 CEW (Rec: 09/07/24 18:25 CEW [id number]) Advance Directive, confirm on record Time 18:24 Person contacted Pt, he will have a copy brought in. Copy received No CM Discharge Assessment Start: 09/08/24 11:46 Freq: Status: Active Protocol: Document 09/08/24 11:46 DPL (Rec: 09/08/24 11:47 DPL [id number]) Discharge Planning Assessment Assigned Filter Tender Jelly PATIENCE Cooley Advance Directives? No Advance Directives on File No History Provided By Patient,Medical Record Has Patient been admitted in last 30 No days? Prior Living Arrangements House Household Members none Type of transporation used prior to Drives own vehicle admit Independent with ADL's Yes Is patient alert and oriented? Yes Comment N/A Caregiver for Another No Comment OP Urology Comment ownes wheelchair/walker but only uses cane at baseline Comment OP Urology f/u Barriers to Discharge No Discharge Plan Home Transportation Arrangement Pt states ANIT[employer] Tiffany or a local friend can transport him home at d/c Referrals Initiated None needed Whiteboard Updated in Patient Room with Yes name and ext. # of Filter Tender Jelly Review Status In Process Please Provide Date Initial DC 09/08/24 Assessment Was Performed Pre-Anesthesia Assessment Start: 09/07/24 10:39 Freq: Status: Discharge Protocol: Document 09/07/24 10:39 LB (Rec: 09/07/24 10:58 LB [id number]) Pre-Anesthesia Assessment PAC Comment 09/07/24 Chart review. Patient Information Reviewed Via Chart Review Diagnostic Results BMP/CMP,CBC Comment 07/03/24 at . 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 No Hx Sleep Apnea Yes Currently Taking a Beta Shari No Anti-Coagulant Therapy No Hx Pacemaker/ICD No Cardiac Clearance Received Not Applicable Urinary Catheter Present Yes: Suprapubic. Diabetes No Presence of External or Internal Medical Yes: Suprapubic catheter. Devices Received a COVID vaccine? Yes Lives With none Patient Discharge Plan Description Return Home Do You Have Any Spiritual Beliefs That No May Affect Your HC Choices? Do You Have Any Cultural Practices That No May Affect Your HC Choices? Emergency Contact Name Tiffany Akers - family/other Emergency Contact Advance Directives? No Advance Directives on File No Power of Chef German Yes Power of Chef German Name Tiffany Akers ANITRA Power of Chef German Stop Bang Assessment Do you snore loudly (louder than talking Yes or loud enough to be heard through closed doors) Do you often feel tired, fatigued or Yes sleepy during the daytime Has anyone ever observed you stop Yes breathing while sleeping? Do you have, or are you being treated Yes for, high blood pressure Is your BMI more than 35 kg/m2 Yes Age over 50 Yes Estimated neck circumference greater Yes than 40cm or 16in Gender male Yes Result Positive
== END 2024-09-08 11:20 | disposition home or self-care (01) ==
LOC: OR 16:54 → AC 09-08 08:01
PROVIDERS: PCP Internal Medicine; Referring Provider Urology; Visit Provider Urology
PROC: 0T9B30Z Drainage of Bladder with Drainage Device, Percutaneous Approach (ICD-10-PCS; CPT 51102; principal; 2024-09-07 15:00)
DX: Q55.64 Hidden penis (principal); Z93.59 Other cystostomy status; R33.9 Retention of urine, unspecified; Z85.46 Personal history of malignant neoplasm of prostate; E66.01 Morbid (severe) obesity due to excess calories; Z68.43 Body mass index [BMI] 50.0-59.9, adult; G47.33 Obstructive sleep apnea (adult) (pediatric); R09.02 Hypoxemia; N47.1 Phimosis; Z53.09 Procedure and treatment not carried out because of other contraindication
CPT/HCPCS: 52000; 82962; G0378; J0134; J0330; J0690; J1100; J1885; J2405; J2704; J3010

== ENCOUNTER 2024-09-24 13:40 | Inpatient (IN) | payer MEDICARE, MEDICAID, SELFPAY ==
--- NOTE | 2020-09-26 11:53 | DI.ECHO.S_ITS ---
[place] [facility] : : [address] : : [place] : : [id number] : : Phone: [phone] Echocardiogram Report + :Name: PENNY VIGIL Study Date: 09/26/2024 Height: 68 in : :[facility] : Weight: 380 lb: : Gender: Male BSA: 2.7 m2 : :: 1955 Age: 69 yrs : :Reason For Study: right heart elvation :: Performed By: Customer Operations Manager Naomi Mascorro : :Referring: ELAINE MEJIA R : + Interpretation Summary The study quality was technically difficult. The left ventricular ejection fraction is grossly normal. The ejection fraction is estimated to be 55-60%. There are no obvious focal wall motion abnormalities noted but poor endocardial definition reduces the sensitivity for the detection of such. The right ventricle grossly appears normal in size with probable normal systolic function. There is no significant valvular heart disease. Procedure: A two-dimensional transthoracic echocardiogram with color flow and Doppler was performed. Images from the parasternal window were difficult to obtain and are suboptimal in quality. The apical views were difficult to obtain and are suboptimal in quality. The subcostal views were difficult to obtain and are suboptimal in quality. The suprasternal notch views were difficult to obtain and are suboptimal in quality. A contrast injection of Definity was performed to improve assessment of LV function. There is no prior echocardiogram noted for this patient. The study quality was technically difficult. The patient was in normal sinus rhythm during the exam. Left Ventricle: The left ventricle is grossly normal size. There is no thrombus. There is no ventricular septal defect visualized. The left ventricular ejection fraction is grossly normal. The ejection fraction is estimated to be 55-60%. There are no obvious focal wall motion abnormalities noted but poor endocardial definition reduces the sensitivity for the detection of such. Diastolic function could not be accurately assessed due to unobtainable data. Right Ventricle: The right ventricle is not well visualized. The right ventricle grossly appears normal in size with probable normal systolic function. Atria: The left atrium is not well visualized. Right atrium not well visualized. The intratrial septum not well visualized. Mitral Valve: The mitral valve is not well visualized. There is no mitral valve stenosis. There is no mitral regurgitation noted. Aortic Valve: The aortic valve is grossly normal. There is no aortic valve stenosis. No aortic regurgitation is present. Tricuspid Valve: The tricuspid valve leaflets are thin and pliable. There is a trace or physiologic amount of tricuspid regurgitation. Pulmonary artery pressures cannot be estimated because of the lack of a measurable TR jet velocity. Pulmonic Valve: The pulmonic valve is not well visualized. There is no pulmonic valvular regurgitation. Great Vessels: The aortic root is normal size. The ascending aorta is normal in size. The aortic arch could not be visualized. The inferior vena cava was not visualized. Pericardium/ Pleura There is no pericardial effusion. There is no pleural effusion. MMode/2D Measurements & Calculations LVIDd: 5.1 cm LVOT diam: 2.2 cm LVIDs: 4.5 cm Ao root diam: 3.2 cm FS: 10.5 % asc Aorta Diam: 3.1 cm IVSd: 0.89 cm LVPWd: 0.93 cm LV clayton. diameter/BSA (cm/m^2): 1.9 LV sys. diameter/BSA (cm/m^2): 1.7 IVC diam: 1.9 cm Doppler Measurements & Calculations Ao V2 max: 189.0 cm/sec LVOT Max Tutu: 92.2 cm/sec Ao V2 mean: 117.7 cm/sec LV V1 max P.4 mmHg Ao max P.3 mmHg LV V1 VTI: 14.9 cm Ao mean P.2 mmHg JESSI(I,D): 2.2 cm2 Ao V2 VTI: 26.5 cm JESSI(V,D): 1.9 cm2 sev ratio: 0.56 JESSI indexed to BSA (cm^2/m^2): 0.80 PA V2 max: 95.7 cm/sec SV(LVOT): 57.3 ml PA V2 mean: 73.2 cm/sec PA mean P.2 mmHg PA pr(Accel): 46.9 mmHg Reading Physician:02:46 PM
[2024-09-07 18:12] VITALS: BMI 57.7
[2024-09-24] VITALS (10 sets, daily range): BP systolic 121–185; BP diastolic 58–82; PULSE 93–110; RESP 14–18; TEMP 36.1–36.7; O2SAT 88–96; BMI 57.7
[2024-09-24 14:45] LABS: Adenovirus Not Detected (Not Detect); B. parapertussis Not Detected (Not Detecte); Bordetella pertussis Not Detected (Not Detect); Chlamydophila pneumoniae Not Detected (Not Detect); Coronavirus 229E Not Detected (Not Detect); Coronavirus HKU1 Not Detected (Not Detect); Coronavirus NL 63 Not Detected (Not Detect); Coronavirus OC43 Not Detected (Not Detect); Human Metapneumovirus Not Detected (Not Detect); Human Rhinovirus/Enterovirus Not Detected (Not Detect); Influenza A Not Detected (Not Detect); Influenza B Not Detected (Not Detect); Mycoplasma pneumoniae Not Detected (Not Detect); Parainfluenza Virus 1 Not Detected (Not Detect); Parainfluenza Virus 2 Not Detected (Not Detect); Parainfluenza Virus 3 Not Detected (Not Detect); Parainfluenza Virus 4 Not Detected (Not Detect); Respiratory Syncytial Virus Not Detected (Not Detect); SARS- CoV-2 Not Detected (Not Detecte)
--- NOTE | 2024-09-24 14:51 | DI.RAD.S_ITS ---
PROCEDURE: XR CHEST 2V INDICATIONS: cough >2wks; restrictive lung dz on day 5 augmentin TECHNIQUE: 2 views of the chest were acquired. COMPARISON: [facility], CR, XR CHEST 1V, 04/19/2024, 12:18. [facility], CR, XR CHEST 1V, 12/13/2023, 23:44. FINDINGS: Surgical changes and devices: None. Lungs and pleura: Lungs are hypoinflated but clear. No pleural effusions or pneumothorax. Mediastinum: Mediastinal contours are normal. Heart size is normal. Bones and chest wall: No suspicious bony abnormalities. Soft tissues appear unremarkable. IMPRESSION: No acute cardiopulmonary abnormality is seen. Dictated by: Sloane Rocha M.D. on 09/24/2024 at 14:52 Approved by: Sloane Rocha M.D. on 09/24/2024 at 14:53
--- NOTE | 2024-09-24 14:55 | ED_ITS ---
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 He notes that he has had multiple problems with his suprapubic catheter this fall and had a surgery about 3 weeks ago where he was put under with anesthesia and stayed overnight in the hospital due to attempting to make a new stoma for and replace his suprapubic catheter. this was unsuccessful. He started taking some Augmentin that he had previously been prescribed for UTI 5 days ago and has had a full 5 days of this. States this seems to have helped a little bit with the ?gurgly? lung sounds he felt he was hearing last week however he has not had any improvement in his fatigue or his shortness of breath with exertion. He states he used to have an albuterol inhaler that he used occasionally but his last 1 in 2022 as he was using it so infrequently. Today he was traveling with a friend [facility] and he was so short of breath just trying to get out of the car and walk around a little bit he ended up using the inhaler. Last use was about 1 hour prior to arrival to the emergency department. He acknowledges chronic lower extremity swelling/edema in his legs that is unchanged from his baseline states he sometimes takes a diuretic for this. 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 He has a urinary Montoya catheter in place--states these are changed out every Thursday. He denies coughing up myles blood, syncope, dizziness, palpitations, fevers, chills, calf pain, or other symptoms. Patient later notes that his uncle recently was diagnosed with pulmonary embolisms (scattered) and that he had a negative CT scan initially when his symptoms started but 3 months later had pulmonary embolisms throughout his lungs. Related Data Home Medications Medication Instructions Recorded Confirmed ropinirole 2 mg tablet 2 mg PO BEDTIME 06/26/20 09/19/24 trazodone 50 mg tablet 50 mg PO BEDTIME 06/26/20 09/19/24 ferrous sulfate 325 mg (65 mg 325 mg PO DAILY 09/25/22 09/19/24 iron) tablet citric ac 1980.6 mg-glucono 59.4 30 ml irrigation TID 07/27/24 09/19/24 mg-mag carb 980.4 mg/30 mL irrig.soln (Renacidin) Previous Rx's Medication Instructions Recorded meloxicam 7.5 mg tablet 7.5 mg PO DAILY #90 tabs 10/20/23 duloxetine 30 mg capsule,delayed 30 mg PO DAILY #90 caps 12/18/23 release omeprazole 40 mg capsule,delayed 40 mg PO DAILY #90 caps 01/19/24 release food supplemt, lactose-reduced 1 ea PO QID #28,440 mL 02/08/24 (Ensure Original oral liquid) furosemide 20 mg tablet 20 mg PO BID #180 tabs 05/02/24 potassium chloride 10 mEq 10 meq PO DAILY #90 tabs 05/13/24 tablet,extended release methenamine hippurate 1 gram tablet 1 g PO BID #180 tabs 07/01/24 oxycodone 5 mg tablet 5 mg PO Q8H PRN pain (scale score 09/07/24 7-10) #7 tabs albuterol sulfate 90 mcg/actuation 2 puff inhalation Q6H PRN 09/12/24 aerosol inhaler shortness of breath or wheezing #8.5 grams inhalational spacing device #1 ea 09/12/24 (Microchamber spacer) Allergies Allergy/AdvReac Type Severity Reaction Status Date / Time No Known Drug Allergies Allergy Verified 09/24/24 13:43 Review of Systems <Adriana Meyers PA-C - Last Filed: 09/24/24 19:58> Review of Systems Narrative: See HPI Patient History <Adriana Meyers PA-C - Last Filed: 09/24/24 19:58> Medical History BMI 50.0-59.9, adult (08/2024) Sepsis (06/2023) Suprapubic catheter dysfunction Sinus tachycardia Chronic renal failure, stage 3a Acquired buried penis Urinary retention Urinary incontinence Iron deficiency Polyneuropathy, unspecified Anemia of chronic disease Mixed hyperlipidemia Eczema (~1996) Restless leg syndrome (~2013) Tinnitus (~1972) Recurrent sinusitis (~2007) Frequent UTI (~2017) Pancreatitis (~1995) Obstructive sleep apnea of adult (~2013) History of kidney stones Phimosis Lower urinary tract symptoms History of prostate cancer (~2016) Chronic venous insufficiency (04/10/16) Restrictive lung disease (08/16/15) Primary insomnia (08/16/15) Morbid obesity (08/16/15) 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) Surgical History History of transurethral resection of bladder tumor (TURBT) (2023) Chronic suprapubic catheter Anesthesia History of common bile duct surgery (~1997) Status post knee surgery (~1993) Family History Brother Prostate cancer Liver cancer Father Parkinson disease Grandfather Hepatitis Grandfather History of heart disease Grandmother Cancer Social History household members: none Smoking Status: Never smoker alcohol intake: current Smoking Status: Never smoker alcohol intake frequency: 0-2 drinks per day Alcohol type: beer Exam <Adriana Meyers PA-C - Last Filed: 09/24/24 19:58> Narrative Exam Narrative: GENERAL: [69] year old patient appears stated age. Morbidly obese patient, in mild distress. HEAD: Atraumatic. Normocephalic. EYES: Pupils equal round and reactive. Extraocular motions intact. No scleral icterus. No injection or drainage. ENT: Nose without bleeding, purulent drainage. Airway patent. NECK: Trachea midline. Non tender CARDIOVASCULAR: Regular rate and rhythm without murmurs, gallops, or rubs. RESPIRATORY: Clear to auscultation. Breath sounds equal bilaterally. No wheezes, rales, or rhonchi noted. GASTROINTESTINAL: Abdomen protuberant, nontender. Scarring present at midline suprapubically under the patient's pannus that does not show erythema tenderness heat fluctuance or induration. EXTREMITIES: Bilateral lower extremity mild edema that is nonpitting, bilateral venous stasis changes to the ankles. There is no joint tenderness. BACK: Nontender without deformity or crepitance. No flank tenderness. NEURO: AOx3. SKIN: No rash or erythema of visible areas Initial Vital Signs Initial Vital Signs: Vital Signs Temperature 97.0 F L 09/24/24 13:43 Pulse Rate 108 H 09/24/24 13:43 Respiratory Rate 18 09/24/24 13:43 Blood Pressure 121/58 L 09/24/24 13:43 Pulse Oximetry 93 09/24/24 13:43 Oxygen Delivery Method Room Air 09/24/24 13:43 <Geoff Sosa DO - Last Filed: 09/24/24 20:42> Initial Vital Signs Initial Vital Signs: Vital Signs Temperature 97.0 F L 09/24/24 13:43 Pulse Rate 108 H 09/24/24 13:43 Respiratory Rate 18 09/24/24 13:43 Blood Pressure 121/58 L 09/24/24 13:43 Pulse Oximetry 93 09/24/24 13:43 Oxygen Delivery Method Room Air 09/24/24 13:43 Course <Adriana Meyers PA-C - Last Filed: 09/24/24 19:58> Orders Ordered: ED Orders 09/24/24 13:52 Respiratory Panel (Film Array) Stat 09/24/24 14:51 XR chest 2V Stat 09/24/24 16:10 EKG-12 Lead Stat 09/24/24 16:16 Complete Blood Count AUTO DIFF Stat Comprehensive Metabolic Panel Stat D Dimer Stat NT-proBNP (BNP-Adult 18+) Stat Procalcitonin Stat Troponin & CK Cardiac Panel Stat 09/24/24 18:08 CT angio chest PE protocol Stat 09/24/24 19:35 Consult to Hospitalist Service Stat Discontinued Medications Acetaminophen (Acetaminophen 325 Mg Tablet) 650 mg PO NOW ONE Stop: 09/24/24 16:52 Last Admin: 09/24/24 17:02 Dose: 650 mg Documented By: SPF Furosemide (Furosemide 40 Mg/4 Ml Vial) 40 mg IV NOW ONE Stop: 09/24/24 19:36 Last Admin: 09/24/24 19:45 Dose: 40 mg Documented By: LS Consultations Consultation #1: Discussed this patient with Dr. Carlson, hospitalist, who agrees to admit him as an observation patient. Concern for CHF as he has new shortness of breath with exertion that has been progressing over the last few weeks now with new oxygen requirement today and significant difficulty with ADLs/moving even 5 ft due to shortness of breath with exertion. Recommends Lasix and 40 mg IV Lasix is ordered. 1740 Vital Signs Vital signs: Vital Signs - 8 hr 09/24/24 13:43 09/24/24 14:44 09/24/24 15:56 Temperature 97.0 F L 98.1 F Pulse Rate 108 H 102 H 93 H Respiratory Rate 18 18 16 Blood Pressure 121/58 L 142/66 H Pulse Oximetry 93 92 94 Oxygen Delivery Method Room Air Room Air Room Air Oxygen Flow Rate 09/24/24 19:02 09/24/24 19:12 09/24/24 19:19 Temperature Pulse Rate 104 H 105 H 104 H Respiratory Rate 18 18 Blood Pressure 156/72 H Pulse Oximetry 88 L 94 94 Oxygen Delivery Method Room Air Nasal Cannula Oxygen Flow Rate 2 09/24/24 19:21 09/24/24 19:21 09/24/24 19:29 Temperature Pulse Rate 95 H 103 H Respiratory Rate Blood Pressure 185/81 H Pulse Oximetry 95 96 Oxygen Delivery Method Oxygen Flow Rate 09/24/24 19:29 09/24/24 19:30 09/24/24 19:30 Temperature Pulse Rate 98 H Respiratory Rate Blood Pressure 148/65 H 143/63 H Pulse Oximetry 95 Oxygen Delivery Method Nasal Cannula Oxygen Flow Rate 2 <Geoff Sosa, DO - Last Filed: 09/24/24 20:42> Orders Ordered: ED Orders 09/24/24 13:52 Respiratory Panel (Film Array) Stat 09/24/24 14:51 XR chest 2V Stat 09/24/24 16:10 EKG-12 Lead Stat 09/24/24 16:16 Complete Blood Count AUTO DIFF Stat Comprehensive Metabolic Panel Stat D Dimer Stat NT-proBNP (BNP-Adult 18+) Stat Procalcitonin Stat Troponin & CK Cardiac Panel Stat 09/24/24 18:08 CT angio chest PE protocol Stat 09/24/24 19:35 Consult to Hospitalist Service Stat Discontinued Medications Acetaminophen (Acetaminophen 325 Mg Tablet) 650 mg PO NOW ONE Stop: 09/24/24 16:52 Last Admin: 09/24/24 17:02 Dose: 650 mg Documented By: MATILDE Furosemide (Furosemide 40 Mg/4 Ml Vial) 40 mg IV NOW ONE Stop: 09/24/24 19:36 Last Admin: 09/24/24 19:45 Dose: 40 mg Documented By: LS Vital Signs Vital signs: Vital Signs - 8 hr 09/24/24 13:43 09/24/24 14:44 09/24/24 15:56 Temperature 97.0 F L 98.1 F Pulse Rate 108 H 102 H 93 H Respiratory Rate 18 18 16 Blood Pressure 121/58 L 142/66 H Pulse Oximetry 93 92 94 Oxygen Delivery Method Room Air Room Air Room Air Oxygen Flow Rate 09/24/24 19:02 09/24/24 19:12 09/24/24 19:19 Temperature Pulse Rate 104 H 105 H 104 H Respiratory Rate 18 18 Blood Pressure 156/72 H Pulse Oximetry 88 L 94 94 Oxygen Delivery Method Room Air Nasal Cannula Oxygen Flow Rate 2 09/24/24 19:21 09/24/24 19:21 09/24/24 19:29 Temperature Pulse Rate 95 H 103 H Respiratory Rate Blood Pressure 185/81 H Pulse Oximetry 95 96 Oxygen Delivery Method Oxygen Flow Rate 09/24/24 19:29 09/24/24 19:30 09/24/24 19:30 Temperature Pulse Rate 98 H Respiratory Rate Blood Pressure 148/65 H 143/63 H Pulse Oximetry 95 Oxygen Delivery Method Nasal Cannula Oxygen Flow Rate 2 MDM - URI/Sore Throat <Adriana Meyers PA-C - Last Filed: 09/24/24 19:58> Differential Diagnosis Differential diagnosis: Likely upper respiratory infection, viral infection and other (pulmonary embolism; CHF) Medical Records Attestation: I reviewed the patient's medical records. Lab Data Attestation: I reviewed the patient's lab results. 09/24/24 16:16 09/24/24 16:16 Labs: Lab Results 09/24/24 09/24/24 Range/Units 13:52 16:16 WBC 6.6 (4.5-11.0) X10^3/uL RBC 3.59 L (4.5-5.9) X10^6/uL Hgb 11.6 L (13.5-17.5) g/dL Hct 35.2 L (41-53) % MCV 98.2 (80-100) fL MCH 32.2 (26-34) PG MCHC 32.8 (30-36) % RDW 19.0 H (11.6-14.8) % Plt Count 107 L (150-400) X10^3/uL Neut % (Auto) 68.6 (50-75) % Lymph % (Auto) 18.1 L (25-40) % Burke % (Auto) 10.5 (3-14) % Eos % (Auto) 2.1 (2-4) % Baso % (Auto) 0.7 (0-2) % Neut # (Auto) 4500 (2052-5751) /uL Lymph # (Auto) 1200 (0899-3619) /uL Burke # (Auto) 700 (0-900) /uL Eos # (Auto) 100 (0-450) /uL Baso # (Auto) 0 (0-100) /uL D-Dimer 1003 H (<500) ng/ml Sodium 136 L (137-145) mmol/L Potassium 4.3 (3.4-5.1) mmol/L Chloride 101 (98-107) mmol/L Carbon Dioxide 33 H (22-32) mmol/L BUN 12 (9-20) mg/dL Creatinine 1.26 H (0.66-1.25) mg/dL Estimated GFR > 60 (>60) mL/min BUN/Creatinine Ratio 9.5 (6-22) Glucose 128 H (80-110) mg/dL Calcium 8.8 (8.4-10.2) mg/dL Total Bilirubin 0.7 (0.2-1.3) mg/dL AST 48 (17-59) IU/L ALT 49 (<50) IU/L Alkaline Phosphatase 119 (38-126) U/L Total Creatine Kinase 72 (55-170) U/L Troponin I < 0.012 (0.01-0.034) ng/mL NT-Pro-B Natriuret Pep 279 H (<125) pg/mL Total Protein 7.5 (6.3-8.2) g/dL Albumin 3.7 (3.5-5.0) g/dL Globulin 3.8 (1.7-4.1) g/dL Albumin/Globulin Ratio 1.0 (1.0-2.8) Procalcitonin 0.088 (<0.5) ng/mL Chlamy pneumoniae PCR Not detected (Not Detect) Adenovirus (PCR) Not detected (Not Detect) B. pertussis DNA (PCR) Not detected (Not Detect) B.parapertussis DNA PCR Not detected (Not Detecte) Coronavirus OC43 (PCR) Not detected (Not Detect) Coronavirus HKU1 (PCR) Not detected (Not Detect) Coronavirus 229E (PCR) Not detected (Not Detect) SARS-CoV-2 (PCR) Not detected (Not Detecte) Coronavirus NL63 (PCR) Not detected (Not Detect) Human Metapneumovir PCR Not detected (Not Detect) Influenza Type A (PCR) Not detected (Not Detect) Influenza Type B (PCR) Not detected (Not Detect) M. pneumoniae (PCR) Not detected (Not Detect) Parainfluenza 1 (PCR) Not detected (Not Detect) Parainfluenza 2 (PCR) Not detected (Not Detect) Parainfluenza 3 (PCR) Not detected (Not Detect) Parainfluenza 4 (PCR) Not detected (Not Detect) RSV (PCR) Not detected (Not Detect) Entero/Rhino (PCR) Not detected (Not Detect) Imaging Data Chest x-ray: My Impression: Agree with Radiology interpretation Radiologist's Impression: [address] [address] XRay Report Signed Patient: Jose Francisco Akers MR#: [id number] : 1955 Acct:[id number] Age/Sex: 69 / M Date of Service: 09/24/24 Loc: ED Accession Number: [id number] Procedure: XR chest 2V Ordering Provider: Adriana Meyers PA-C PROCEDURE: XR CHEST 2V INDICATIONS: cough >2wks; restrictive lung dz on day 5 augmentin TECHNIQUE: 2 views of the chest were acquired. COMPARISON: [facility], CR, XR CHEST 1V, 04/19/2024, 12:18. [facility], CR, XR CHEST 1V, 12/13/2023, 23:44. FINDINGS: Surgical changes and devices: None. Lungs and pleura: Lungs are hypoinflated but clear. No pleural effusions or pneumothorax. Mediastinum: Mediastinal contours are normal. Heart size is normal. Bones and chest wall: No suspicious bony abnormalities. Soft tissues appear unremarkable. IMPRESSION: No acute cardiopulmonary abnormality is seen. Dictated by: Sloane Rocha M.D. on 09/24/2024 at 14:52 Approved by: Sloane Rocha M.D. on 09/24/2024 at 14:53 CT PE study: My Impression: Agree with Radiology interpretation Radiologist's Impression: [address] [address] [address] Scan Report Signed Patient: Jose Francisco Akers MR#: [id number] : 1955 Acct:[id number] Age/Sex: 69 / M Date of Service: 09/24/24 Loc: ED Accession Number: [id number] Procedure: CT angio chest PE protocol Ordering Provider: Adriana Meyers PA-C PROCEDURE: CT ANGIO CHEST PE PROTOCOL INDICATIONS: hemoptysis, elevated dimer, recent surgery, low 02 sats TECHNIQUE: After the administration of intravenous contrast, 2 mm thick sections acquired from the pulmonary apices to the posterior costophrenic angles. 3-dimensional maximum intensity projection (MIP) coronal and sagittal reformats were then acquired through the thorax. For radiation dose reduction, the following was used: automated exposure control, adjustment of mA and/or kV according to patient size. COMPARISON: None. FINDINGS: Image quality: Diagnostic. Pulmonary arteries: Pulmonary arteries are normal in size, and demonstrate no intraluminal filling defects to suggest central pulmonary embolism. Lower Neck: No enlarged lymph nodes. Thyroid: No thyroid nodules which require sonographic follow up, per consensus guidelines. Axillae: No enlarged lymph nodes. Chest Wall: Numerous superficial varices are shown. Otherwise normal. Bones: Unremarkable. Lungs and Pleura: No pneumothorax or pleural effusions. No consolidation or suspicious nodules. Heart: Heart size is normal. No pericardial effusion. Thoracic Vessels: No aortic aneurysm. Mediastinum and Jyothi: No enlarged lymph nodes. Esophagus: No wall thickening. No hiatal hernia. Upper Abdomen: The liver and spleen are enlarged but incompletely evaluated. There is no acute abnormality of the upper abdomen. IMPRESSION: No pulmonary embolus. No acute cardiopulmonary process. Incompletely evaluated hepatosplenomegaly which, with superficial chest wall varices, is concerning for portal hypertension. Dictated by: Sloane Rocha M.D. on 09/24/2024 at 17:37 Approved by: Sloane Rocha M.D. on 09/24/2024 at 17:44 [facility] Narrative Medical decision making narrative: 69-year-old patient with class 3 obesity, stage IIIA renal failure chronic suprapubic catheter (Montoya in situ), SIRIA, restrictive lung disease presented with concern for worsening shortness of breath with exertion over the past 3 weeks becoming more pronounced in the last few days with lightheadedness due to shortness of breath with ambulation of more than about 5-7 steps. Patient was mildly tachycardic in triage and had taken albuterol prior to arrival to emergency department. Patient endorsed taking Augmentin for a possible presumed pneumonia and has been doing so for the past 5 days with no improvement in the shortness of breath or fatigue but with subjective improvement in lung/breathing sounds. Initially respiratory panel and chest x-ray from triage showed no evidence of pneumonia, negative respiratory panel. Patient remain persistently tachycardic over multiple hours in the emergency department less likely consistent with affects of albuterol. Patient then endorsed he did have surgery about 3 weeks ago, also endorsed blood mixed into his sputum for the last few days with coughing. Given his body habitus, report of hemoptysis, low O2 sats and persistent tachycardia labs obtained for evaluation for possible PE, also CBC and CMP as well as cardiac labs and BNP obtained. BNP is elevated to 279, D-dimer is also elevated to over 1000. Age adjusted D-dimer for this patient was 700. CT PE study ordered for further evaluation for possible pulmonary embolism. Patient oxygen saturations were persistently in the low 90s at rest sitting upright. And at times in the 80s. Ultimately RN placed him on oxygen in order to keep his oxygen levels up above 90. He was consistently tachypneic with pursed lip breathing and low O2 sats with any exertion, even minimal exertion such as standing and rotating to sit down in a wheelchair. PE study was negative for PE. Question portal vein hypertension. Patient has been taking his Lasix b.i.d. as prescribed, however with elevated BNP and his progressive shortness of breath symptoms likely CHF could be causative of his symptoms. Also possible that the Augmentin he has been taking has improved a previous pneumonia that may have been present and is simply no longer visible on imaging today. Discussed the patient with the attending physician Dr. Sosa and then Dr. Carlson, who admits him for observation. IV Lasix is initiated from the emergency department. <Geoff Sosa, DO - Last Filed: 09/24/24 20:42> Lab Data Labs: Lab Results 09/24/24 09/24/24 Range/Units 13:52 16:16 WBC 6.6 (4.5-11.0) X10^3/uL RBC 3.59 L (4.5-5.9) X10^6/uL Hgb 11.6 L (13.5-17.5) g/dL Hct 35.2 L (41-53) % MCV 98.2 (80-100) fL MCH 32.2 (26-34) PG MCHC 32.8 (30-36) % RDW 19.0 H (11.6-14.8) % Plt Count 107 L (150-400) X10^3/uL Neut % (Auto) 68.6 (50-75) % Lymph % (Auto) 18.1 L (25-40) % Burke % (Auto) 10.5 (3-14) % Eos % (Auto) 2.1 (2-4) % Baso % (Auto) 0.7 (0-2) % Neut # (Auto) 4500 (9080-6882) /uL Lymph # (Auto) 1200 (7049-4209) /uL Burke # (Auto) 700 (0-900) /uL Eos # (Auto) 100 (0-450) /uL Baso # (Auto) 0 (0-100) /uL D-Dimer 1003 H (<500) ng/ml Sodium 136 L (137-145) mmol/L Potassium 4.3 (3.4-5.1) mmol/L Chloride 101 (98-107) mmol/L Carbon Dioxide 33 H (22-32) mmol/L BUN 12 (9-20) mg/dL Creatinine 1.26 H (0.66-1.25) mg/dL Estimated GFR > 60 (>60) mL/min BUN/Creatinine Ratio 9.5 (6-22) Glucose 128 H (80-110) mg/dL Calcium 8.8 (8.4-10.2) mg/dL Total Bilirubin 0.7 (0.2-1.3) mg/dL AST 48 (17-59) IU/L ALT 49 (<50) IU/L Alkaline Phosphatase 119 (38-126) U/L Total Creatine Kinase 72 (55-170) U/L Troponin I < 0.012 (0.01-0.034) ng/mL NT-Pro-B Natriuret Pep 279 H (<125) pg/mL Total Protein 7.5 (6.3-8.2) g/dL Albumin 3.7 (3.5-5.0) g/dL Globulin 3.8 (1.7-4.1) g/dL Albumin/Globulin Ratio 1.0 (1.0-2.8) Procalcitonin 0.088 (<0.5) ng/mL Chlamy pneumoniae PCR Not detected (Not Detect) Adenovirus (PCR) Not detected (Not Detect) B. pertussis DNA (PCR) Not detected (Not Detect) B.parapertussis DNA PCR Not detected (Not Detecte) Coronavirus OC43 (PCR) Not detected (Not Detect) Coronavirus HKU1 (PCR) Not detected (Not Detect) Coronavirus 229E (PCR) Not detected (Not Detect) SARS-CoV-2 (PCR) Not detected (Not Detecte) Coronavirus NL63 (PCR) Not detected (Not Detect) Human Metapneumovir PCR Not detected (Not Detect) Influenza Type A (PCR) Not detected (Not Detect) Influenza Type B (PCR) Not detected (Not Detect) M. pneumoniae (PCR) Not detected (Not Detect) Parainfluenza 1 (PCR) Not detected (Not Detect) Parainfluenza 2 (PCR) Not detected (Not Detect) Parainfluenza 3 (PCR) Not detected (Not Detect) Parainfluenza 4 (PCR) Not detected (Not Detect) RSV (PCR) Not detected (Not Detect) Entero/Rhino (PCR) Not detected (Not Detect) Discharge Plan Departure Patient Disposition: Admitted as Observation Clinical Impression: Oxygen dependent, LAUREN (dyspnea on exertion) CHF (congestive heart failure) Qualifiers: Heart failure type: unspecified Heart failure chronicity: unspecified Qualified Code(s): I50.9 - Heart failure, unspecified Fatigue Qualifiers: Fatigue type: unspecified Qualified Code(s): R53.83 - Other fatigue Admit Date/Time: 09/24/24 19:38 Admit Provider: Steven Carlson ED Sign-out <Geoff Sosa DO - Last Filed: 09/24/24 20:42> [facility] Dr Sosa Co-Sign Statement: I was available for consultation during this patient's emergency department visit. This chart is signed by myself for administrative purposes only. I did not have direct contact with this patient during this visit. They were seen independently by the APC.
[2024-09-24 16:23] LABS: Add Manual Diff / Slide Review NO; Basophils Absolute Auto 0 /uL (0-100); Basophils Percent Auto 0.7 % (0-2); Eosinophils Absolute Auto 100 /uL (0-450); Eosinophils Percent Auto 2.1 % (2-4); Hematocrit 35.2 % (41-53); Hemoglobin 11.6 g/dL (13.5-17.5); Lymphocytes Absolute Auto 1200 /uL (1100-4500); Lymphocytes Percent Auto 18.1 % (25-40); Mean Corpuscular HGB Conc 32.8 % (30-36); Mean Corpuscular Hemoglobin 32.2 PG (26-34); Mean Corpuscular Volume 98.2 fL (80-100); Monocytes Absolute Auto 700 /uL (0-900); Monocytes Percent Auto 10.5 % (3-14); Neutrophils Absolute Auto 4500 /uL (1500-7000); Neutrophils Percent Auto 68.6 % (50-75); Platelet Count 107 X10^3/uL (150-400); Red Blood Cell Count 3.59 X10^6/uL (4.5-5.9); White Blood Cell Count 6.6 X10^3/uL (4.5-11.0)
[2024-09-24 16:35] LABS: Alanine Aminotransferase 49 IU/L (<50); Albumin 3.7 g/dL (3.5-5.0); Alkaline Phosphatase 119 U/L (38-126); Aspartate Aminotransferase 48 IU/L (17-59); BUN Creatinine Ratio 9.5 (6-22); Bilirubin Total 0.7 mg/dL (0.2-1.3); Blood Urea Nitrogen 12 mg/dL (9-20); Calcium 8.8 mg/dL (8.4-10.2); Carbon Dioxide 33 mmol/L (22-32); Chloride 101 mmol/L (98-107); Creatine Kinase 72 U/L (55-170); Estimated Glomerular Filt Rate > 60 mL/min (>60); Globulin 3.8 g/dL (1.7-4.1); Glucose 128 mg/dL (80-110); HEMOLYSIS < 15 (0-50); Potassium 4.3 mmol/L (3.4-5.1); Sodium 136 mmol/L (137-145); Total Protein 7.5 g/dL (6.3-8.2)
[2024-09-24 16:47] LABS: NT-proBNP (BNP-Adult 18+) 279 pg/mL (<125); Troponin I < 0.012 ng/mL (0.01-0.034)
[2024-09-24 16:52] LABS: Procalcitonin 0.088 ng/mL (<0.5)
[2024-09-24] MEDS: ACETAMINOPHEN 325 MG TABLET 650 MG PO (17:02)
[2024-09-24 17:26] LABS: D Dimer 1003 ng/ml (<500)
--- NOTE | 2024-09-24 18:08 | DI.CT.S_ITS ---
PROCEDURE: CT ANGIO CHEST PE PROTOCOL INDICATIONS: hemoptysis, elevated dimer, recent surgery, low 02 sats TECHNIQUE: After the administration of intravenous contrast, 2 mm thick sections acquired from the pulmonary apices to the posterior costophrenic angles. 3-dimensional maximum intensity projection (MIP) coronal and sagittal reformats were then acquired through the thorax. For radiation dose reduction, the following was used: automated exposure control, adjustment of mA and/or kV according to patient size. COMPARISON: None. FINDINGS: Image quality: Diagnostic. Pulmonary arteries: Pulmonary arteries are normal in size, and demonstrate no intraluminal filling defects to suggest central pulmonary embolism. Lower Neck: No enlarged lymph nodes. Thyroid: No thyroid nodules which require sonographic follow up, per consensus guidelines. Axillae: No enlarged lymph nodes. Chest Wall: Numerous superficial varices are shown. Otherwise normal. Bones: Unremarkable. Lungs and Pleura: No pneumothorax or pleural effusions. No consolidation or suspicious nodules. Heart: Heart size is normal. No pericardial effusion. Thoracic Vessels: No aortic aneurysm. Mediastinum and Jyothi: No enlarged lymph nodes. Esophagus: No wall thickening. No hiatal hernia. Upper Abdomen: The liver and spleen are enlarged but incompletely evaluated. There is no acute abnormality of the upper abdomen. IMPRESSION: No pulmonary embolus. No acute cardiopulmonary process. Incompletely evaluated hepatosplenomegaly which, with superficial chest wall varices, is concerning for portal hypertension. Dictated by: Sloane Rocha M.D. on 09/24/2024 at 17:37 Approved by: Sloane Rocha M.D. on 09/24/2024 at 17:44
[2024-09-24] MEDS: FUROSEMIDE 40 MG/4 ML VIAL IV (19:45)
[2024-09-24] MEDS: TRAZODONE 50 MG TABLET PO (23:14)
[2024-09-24] MEDS: ROPINIROLE 1 MG TABLET 2 MG PO (23:14)
[2024-09-25] VITALS (7 sets, daily range): BP systolic 135–148; BP diastolic 67–83; PULSE 93–105; RESP 16–22; TEMP 36.2–36.4; O2SAT 95
[2024-09-25 05:23] LABS: NT-proBNP (BNP-Adult 18+) 299 pg/mL (<125)
--- NOTE | 2024-09-25 09:58 | PM.HP.1 ---
History of Present Illness History of Present Illness Date Patient Seen: 09/25/24 Time Patient Seen: 09:30 Chief complaint: low oxygen Narrative: Patient presented to ER after several weeks of decreasing energy levels and oxygen levels he is obese without a history of hypertension or diabetes he has a history of prostate cancer with radiation that pretty much destroyed his urethra he did a couple of weeks ago attempt stoma revision with Dr. More which was unsuccessful he is currently using a catheter indwelling changed out weekly and has been on Augmentin for the last week for possible UTI without much improvement. Next catheter change out scheduled for Thursday at 2:[address] More's office. He does sleep with the BiPAP at home but reports he has been sleeping 16 hours a day and still feeling sleepy lately. Appetite has been decreased. He does have an old albuterol prescription but he has not been using it not sure if he has been wheezing endorses a gurgly cough here and there. Intake labs apart from hypoxia mostly unremarkable with a mild anemia and thrombocytopenia and an elevated D-dimer. He is concerned that his uncle on the side of the family he takes after had a similar presentation with a normal initial CTA that several months later developed into severe PEs. [facility] Medical History BMI 50.0-59.9, adult (08/2024) Sepsis (06/2023) Suprapubic catheter dysfunction Sinus tachycardia Chronic renal failure, stage 3a Acquired buried penis Urinary retention Urinary incontinence Iron deficiency Polyneuropathy, unspecified Anemia of chronic disease Mixed hyperlipidemia Eczema (~1996) Restless leg syndrome (~2013) Tinnitus (~1972) Recurrent sinusitis (~2007) Frequent UTI (~2017) Pancreatitis (~1995) Obstructive sleep apnea of adult (~2013) History of kidney stones Phimosis Lower urinary tract symptoms History of prostate cancer (~2016) Chronic venous insufficiency (04/10/16) Restrictive lung disease (08/16/15) Primary insomnia (08/16/15) Morbid obesity (08/16/15) 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) Surgical History History of transurethral resection of bladder tumor (TURBT) (2023) Chronic suprapubic catheter Anesthesia History of common bile duct surgery (~1997) Status post knee surgery (~1993) Family History Brother Prostate cancer Liver cancer Father Parkinson disease Grandfather Hepatitis Grandfather History of heart disease Grandmother Cancer Social History household members: none Smoking Status: Never smoker alcohol intake: current Meds Home Medications and Allergies Home Medications Medication Instructions Recorded Confirmed Type ropinirole 2 mg tablet 2 mg PO BEDTIME 06/26/20 09/24/24 History trazodone 50 mg tablet 50 mg PO BEDTIME 06/26/20 09/24/24 History ferrous sulfate 325 mg (65 mg 325 mg PO DAILY 09/25/22 09/24/24 History iron) tablet meloxicam 7.5 mg tablet 7.5 mg PO DAILY #90 tabs 10/20/23 09/24/24 Rx duloxetine 30 mg capsule,delayed 30 mg PO DAILY #90 caps 12/18/23 09/24/24 Rx release omeprazole 40 mg capsule,delayed 40 mg PO DAILY #90 caps 01/19/24 09/24/24 Rx release food supplemt, lactose-reduced 1 ea PO QID #28,440 mL 02/08/24 09/24/24 Rx (Ensure Original oral liquid) furosemide 20 mg tablet 20 mg PO BID #180 tabs 05/02/24 09/24/24 Rx potassium chloride 10 mEq 10 meq PO DAILY #90 tabs 05/13/24 09/24/24 Rx tablet,extended release methenamine hippurate 1 gram tablet 1 g PO BID #180 tabs 07/01/24 09/24/24 Rx oxycodone 5 mg tablet 5 mg PO Q8H PRN pain (scale score 09/07/24 09/24/24 Rx 7-10) #7 tabs albuterol sulfate 90 mcg/actuation 2 puff inhalation Q6H PRN 09/12/24 09/24/24 Rx aerosol inhaler shortness of breath or wheezing #8.5 grams inhalational spacing device #1 ea 09/12/24 09/24/24 Rx (Microchamber spacer) Allergies Allergy/AdvReac Type Severity Reaction Status Date / Time No Known Drug Allergies Allergy Verified 09/24/24 13:43 Review of Systems Review of Systems Narrative: All systems reviewed and negative except as otherwise described in HPI Exam Vital Signs (past 8 hours): - 09/25/24 04:35 09/25/24 05:50 09/25/24 07:00 Temperature 97.6 F Pulse Rate 93 H Respiratory Rate 16 Blood Pressure 138/67 Pulse Oximetry 95 95 Oxygen Delivery Method Nasal Cannula Nasal Cannula Oxygen Flow Rate 2 2 Fraction of Inspired Oxygen 28 09/25/24 08:00 09/25/24 09:28 Temperature 97.6 F Pulse Rate 101 H Respiratory Rate 20 Blood Pressure 144/71 H Pulse Oximetry 95 95 Oxygen Delivery Method Nasal Cannula Oxygen Flow Rate 2 2 Fraction of Inspired Oxygen Fraction of Inspired Oxygen 28 SaO2/FiO2 Ratio 339 Oxygen Delivery Method Nasal Cannula Oxygen Flow Rate 2 Narrative Exam Narrative: Morbidly obese sitting in chair 2 L via nasal cannula Const Other: Well-developed well-nourished HENUT Other: Normocephalic atraumatic Eyes Other: Extraocular movements intact Resp Other: Moving air okay speaking in normal full sentences with nasal cannula on he is able to keep sats up no obvious wheezing or crackles on auscultation Cardio Other: Regular rate S1-S2 2+ pedal edema bilaterally to mid calf GI Other: Soft nontender Neuro Other: Alert and oriented cranial nerves 2-12 grossly intact Extrem Other: Moving all 4 extremities equally Objective Labs 09/24/24 16:16 09/24/24 16:16 Labs: Laboratory Results - last 24 hr 09/24/24 09/24/24 09/25/24 13:52 16:16 04:17 WBC 6.6 RBC 3.59 L Hgb 11.6 L Hct 35.2 L MCV 98.2 MCH 32.2 MCHC 32.8 RDW 19.0 H Plt Count 107 L Neut % (Auto) 68.6 Lymph % (Auto) 18.1 L [place] % (Auto) 10.5 Eos % (Auto) 2.1 Baso % (Auto) 0.7 Neut # (Auto) 4500 Lymph # (Auto) 1200 [place] # (Auto) 700 Eos # (Auto) 100 Baso # (Auto) 0 D-Dimer 1003 H Sodium 136 L Potassium 4.3 Chloride 101 Carbon Dioxide 33 H BUN 12 Creatinine 1.26 H Estimated GFR > 60 BUN/Creatinine Ratio 9.5 Glucose 128 H Calcium 8.8 Total Bilirubin 0.7 AST 48 ALT 49 Alkaline Phosphatase 119 Total Creatine Kinase 72 Troponin I < 0.012 NT-Pro-B Natriuret Pep 279 H 299 H Total Protein 7.5 Albumin 3.7 Globulin 3.8 Albumin/Globulin Ratio 1.0 Procalcitonin 0.088 Chlamy pneumoniae PCR Not detected Adenovirus (PCR) Not detected B. pertussis DNA (PCR) Not detected B.parapertussis DNA PCR Not detected Coronavirus OC43 (PCR) Not detected Coronavirus HKU1 (PCR) Not detected Coronavirus 229E (PCR) Not detected SARS-CoV-2 (PCR) Not detected Coronavirus NL63 (PCR) Not detected Human Metapneumovir PCR Not detected Influenza Type A (PCR) Not detected Influenza Type B (PCR) Not detected M. pneumoniae (PCR) Not detected Parainfluenza 1 (PCR) Not detected Parainfluenza 2 (PCR) Not detected Parainfluenza 3 (PCR) Not detected Parainfluenza 4 (PCR) Not detected RSV (PCR) Not detected Entero/Rhino (PCR) Not detected Assessment & Plan Assessment & Plan narrative: #acute hypoxic respiratory failure Multiple possible etiologies here, low-grade infectious, fluid overload, reactive airway, obesity hypoventilation with deconditioning, could be low-grade PEs too, we will continue to diurese with Lasix 40 b.i.d. try a course of DuoNebs see if that opens him up encourage anabaptism use of incentive spirometer he says he feels much more comfortable on 2 L is able to stay ahead of rather than behind his oxygenation status. Switched from Augmentin to azithromycin there is a lot of walking pneumonia going around in the community right now. Consider oral steroid course also. PT/OT consult. #primary insomnia Stable continue home meds #Morbid obesity no hx of obesity or diabetes this is just my genetics #nocturnal BIPAP Please provide BiPAP for use at night as he does at home #Indwelling catheter #Hx of prostate cancer Next catheter change out scheduled for Thursday at 2:00 p.m. if he is still here may need to move that #Elevated D-dimer I hear his concern for possible developing issue of PEs he will be on Lovenox while inpatient here recommend he discuss further anticoagulation with his PCP on discharge #normocytic anemia #Thrombocytopenia mild, continue iron supplement, follow Dispo: Admit obsv MDM: Tiffany Akers RN Diet: General Code: DNR DVT: Lovenox Time-Based Coding :: [TOTAL MINUTES] spent with patient and on the chart (including review of chart, obtaining history, exam, reviewing outside data, placing orders, documenting exam and treatment plan, and counseling patient) on [DATE].
[2024-09-25] MEDS: DULOXETINE 30 MG CAPSULE PO (10:25)
[2024-09-25] MEDS: FUROSEMIDE 40 MG/4 ML VIAL IV ×2 (10:25→19:42)
[2024-09-25] MEDS: MELOXICAM 7.5 MG TABLET PO (10:25)
[2024-09-25] MEDS: POTASSIUM CHLORIDE 10 MEQ TAB PO (10:25)
[2024-09-25] MEDS: FERROUS SULFATE 325 MG TABLET PO (10:25)
[2024-09-25] MEDS: ENOXAPARIN 40 MG/0.4 ML SYRINGE SUBCUT ×2 (11:20→20:04)
[2024-09-25] MEDS: AZITHROMYCIN 250 MG TABLET 500 MG PO (11:21)
--- NOTE | 2024-09-25 12:30 | PT.IIE ---
Surgical History (Last Reviewed 09/24/24 @ 18:52 by Adriana Meyers PA-C) Anesthesia Chronic suprapubic catheter History of common bile duct surgery (~1997) History of transurethral resection of bladder tumor (TURBT) (2023) Status post knee surgery (~1993) Medical History (Last Reviewed 09/24/24 @ 18:52 by Adriana Meyers PA-C) Acquired buried penis Anemia of chronic disease BMI 50.0-59.9, adult (08/2024) Chronic renal failure, stage 3a Chronic venous insufficiency (04/10/16) Eczema (~1996) Frequent UTI (~2017) 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) History of kidney stones History of prostate cancer (~2016) Iron deficiency Lower urinary tract symptoms Mixed hyperlipidemia Morbid obesity (08/16/15) Obstructive sleep apnea of adult (~2013) Pancreatitis (~1995) Phimosis Polyneuropathy, unspecified Primary insomnia (08/16/15) Recurrent sinusitis (~2007) Restless leg syndrome (~2013) Restrictive lung disease (08/16/15) Sepsis (06/2023) Sinus tachycardia Suprapubic catheter dysfunction Tinnitus (~1972) Urinary incontinence Urinary retention Physical Therapy Inpatient Evaluation/Re-Eval M1 PT/OT-IP Prior Functional Status Start: 09/25/24 10:35 Freq: NEEDED Status: Active Protocol: Document 09/25/24 11:23 MB (Rec: 09/25/24 12:30 MB [id number]) Medical Review Prior Functional Status Medical History Reviewed Yes Communication Unsure baseline diet, communicates needs Mobility and Gait Mod I to superv with SPC in house Activities of Daily Living and IADL's Pt has caregiver assistance 5 days a week from [id number] to assist with cooking, cleaning, laundry, errands, transportation and even bathing and dressing because it's faster. He drives himself to [employer] on Sundays. Prior Functional Level (Other details) Uncle lives in same home and has separate life. ANITRA lives across the street and is HCPOA . Social History Household Members family Living Arrangements House Number of Floors (Floors) One Floor Number of Stairs To Enter/Railing? 2 steps with left rail ascend to enter home Home Environment Standard Height Toilet,Walk in Shower Home Equipment Straight Cane,Manual Wheelchair Employment Status Retired M2 PT-IP Current Condition Start: 09/25/24 10:35 Freq: NEEDED Status: Active Protocol: Document 09/25/24 11:23 MB (Rec: 09/25/24 12:30 MB [id number]) Physical Therapy Current Condition Current Condition Evaluation Date 09/25/24 Treatment Diagnosis SOB M3 PT-IP Subjective Start: 09/25/24 10:35 Freq: NEEDED Status: Active Protocol: Document 09/25/24 11:23 MB (Rec: 09/25/24 12:30 MB [id number]) Subjective Physical Therapy Visit Type Type Initial Evaluation Visit Start Time 11:23 Visit Stop Time 12:06 Number of PIZZA BAKER Visits 0 Physical Therapy Visit Comments Patient Comments Pt states he has been SOB and declining for a little while. He had HH nsg in the past and was fired d/t an issue with the catheter. He is catheterized at home. He has an uncle who lives in the house with him but with whom he has minimal interaction. They live in his sister's home and there is a lot of stuff on the floor after his mother' s 5 years ago. Sister arrives in two days from out of state. Patient Goals To go home Therapy Pain Assessment Pain When Pain Assessed At Rest Pain Present Pain Present Denied Pain M4 PT-IP Mobility and Gait Start: 09/25/24 10:35 Freq: NEEDED Status: Active Protocol: Document 09/25/24 11:23 MB (Rec: 09/25/24 12:30 MB [id number]) PT-Bed Mobility Assessment Rolling Type of Rolling Roll to Left Level of Assist Independent Supine to Sit Supine to Sit Independent,Bedrails Sit to Supine Sit to Supine Independent,Bedrails PT-Transfer Assessment Sit to and From Stand Sit to and from Stand Standby Assistance Equipment Transfer Assistive Device Gait Belt,Front Wheeled Walker Orthotic/Prosthetic Devices or Brace: No Transfers Transfer Destination Bed,Chair Transfer Technique Stepping Transfer Ability Level of Assist Standby Assistance Comments Mobility Comments O2 sats on 1.5L O2 remain in the low 90s and HR is 109-120s with activity. Short gait in room without O2 and sats 88-93 % and so pushed pt to steps and performed stair training. After pushing back to room in w/c and 15' gait, sats 84-89% and so returned to 1.5L O2. He reports 2/4 Dyspnea scale with mobility. Gait Assessment Gait Gait Assistance Required: Standby Assistance Distance (Feet) 60 Able to Maintain Weight Bearing Status Yes During Gait Assistive Devices Assistive Device Gait Belt,Front Wheeled Walker Orthotic/Prosthetic Devices or Brace: No Gait Deviations General Gait Pattern Wide Based Gait Factors Limiting Gait Function Factors Limiting Gait Function Decreased Strength,Limited Range of Motion Comments Gait Comments Pt favors LLE that is weak and does not have good heel strike or knee ROM and pt reports old left ACL injury and that he needs a TKR. He gait trains steadily with RW for 60'x1 with O2 donned in room and 60'x1 without O2 in room and sats remain low 90s. He gait trains 60' in hallway and 15' in room after stair training and sats are 84-89% on RA and returned to O2. Stair Climbing Assessment Evaluation Level of Assist On Stairs Standby Assistance Devices Stair Climbing Assistive Devices Left Railing Technique/Endurance Stair Climbing Direction Ascend and Descend Stair Climbing Technique Step to Step Number of Steps Climbed 2 Query Text: Stair Climbing Set # Repetitions (reps) 1 Comments Stair Climbing Comments Pt facing left rail ascend and both hands on rail PT-Balance Assessment Sitting Balance and Reactions Static Sitting Balance Ability Good Dynamic Sitting Balance Ability Good Standing Balance and Reactions Static Standing Balance Ability Good Dynamic Standing Balance Ability Fair Device Used RW M5 PT-IP Objective Assessments Start: 09/25/24 10:35 Freq: NEEDED Status: Active Protocol: Document 09/25/24 11:23 MB (Rec: 09/25/24 12:30 MB [id number]) Orientation Orientation/Cognition Level of Alertness Alert Orientation Name,Age,Birthday,Month,Date, Year,Day of Week,Place, Situation Language Function Ability No Deficits Noted Safety Awareness Decreased Safety Awareness Memory Description No Deficits Noted Gross Range of Motion Upper Extremity ROM Impairments NT Lower Extremity ROM Assessment Left Impaired Strength Lower Extremity Strength Assessment Left Impaired Comments Strength Comments Left LE weakness with transfers and gait Coordination Assessment Gross Coordination Gross Coordination Impaired Sensation Assessment Comments Sensation Comments B neuropathy and cannot feel feet M6 PT-IP Treatment Start: 09/25/24 10:35 Freq: NEEDED Status: Active Protocol: Document 09/25/24 11:23 MB (Rec: 09/25/24 12:30 MB [id number]) Physical Therapy Treatment Education Education Provided Safety Other Treatments Other Treatment Performed Extensive education to HCPOA and pt about benefits of RW as opposed to cane to help with respiratory issues/exertion and LLE weakness, they agree to get from [employer]. They state that bariatric walker will not fit into house. Ed that they need someone to d/c home with him from the hospital ensure safe home entrance. When asked about HHPT, they are interested in this. M7 PT-IP Assessment and Plan Start: 09/25/24 10:35 Freq: NEEDED Status: Active Protocol: Document 09/25/24 11:23 MB (Rec: 09/25/24 12:30 MB [id number]) PT Summary Assessment and Plan Potential Rehabilitation Potential Fair Status of Condition at Evaluation Evolving Summary Impairments Pain,ROM,Strength,Balance, Coordination,Sensation,Bed Mobility,Transfers,Gait, Activity Tolerance Assessment Summary Pt is a 69 y/o male presenting to hospital with SOB. He lives in his sister's house with his uncle and they do not interact and live separate lives. ANITRA, who is HCPOA, is available during treatment. When asking prior level of function questions, she frequenty interjects and provides different answers than the patient. Pt is A&O and so PT asks for pt to provide history. Pt reports having caregivers 5 days a week for many hours and they help with many tasks. He states that even though he can bathe and dress himself, he gets their help because it is faster. He drives himself to [employer] on Thursday, getting himself in and out of the house. Many mobility trials today to assess O2 on 1.5L and on RA and recommend RT walking assessment to see if he needs O2 at d/c. His sats did drop with exertion. Though pt has LLE weakness from old injury, his gait is good with RW and while standard RW is not ideal for his body habitus , he and ANITRA state a larger walker will not work in his house. He is certainly better with the RW as compared to SPC as far as pulmonary exertion, balance and supporting his LLE. When asking about goals and when providing education, pt and ANITRA are occ not very receptive. ANITRA states that pt needs to let PT do her spiel, and when PT offers to try stair training today in case pt d/cs, ANITRA states she will be leaving and PT ed that pt will benefit from having family member learn safe home entrance and that he will need someone to assist him home. ANITRA and pt state that pt will d/c himself home alone. PT reinforces that safety getting home and in the house will require a second person for safety. Pt makes a comment about wishing for total knee and wanting medication to lose weight but insurance denied it. He thought about intermittent fasting but research said he could have increased balding. Overall, it appears that pt has a sedentary lifestyle and does not demonstrate internal locus of control/responsibility for wellness and healthcare. Acute PT cannot make much change in this. PT focuses on benefits of RW to help with exertion, balance, LLE support and decreasing fall risk. PT ed pt that a fall and injury are biggest issue to staying at home in his semi- independent situation. Pt and HCPOA are receptive to HHPT safety consult. No further skilled acute PT needs. Recommend up with RW and nsg. Frequency of Treatment Frequency Of Treatment Discharge Recommendations To Nursing Amount of Assist Needed Standby Assistance Discharge Recommendations PT Discharge Recommendations Home with Assistance,Home Health Transportation Needs at Discharge Private Vehicle
--- NOTE | 2024-09-25 15:03 | CM.DANOTE ---
DPA Note: Patient admitted with low 02, URI, chronic renal failure. Patient lives at home alone but has hired caregivers 5 days a week and his ANITRA also assists in his care. Patient uses a cane at his baseline and has a chronic ni that is managed by Dr. More's office, changed weekly. Patient uses a bipap at night, on 2L 02 now, but hoping to wean before d/c. Per hospitalist, patient not clinically ready for d/c for another 1-2 days. PT. rec home with assist. No other needs voiced or identified. 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 No Advance Directives on File No History Provided By Patient,Medical Record Has Patient been admitted in last 30 No days? Prior Living Arrangements House Household Members none Type of transporation used prior to Relies on Others admit Independent with ADL's No Is patient alert and oriented? Yes Needs Assistance With Bathing,Meal Prep Caregiver for Another No DME Already Rented / Owned Cane Comment ownes wheelchair/walker but only uses cane at baseline Discharge Plan Home Transportation Arrangement Pt states ANITRA Tiffany or a local friend can transport him home at d/c Referrals Initiated None needed Additional Comment None at this time but patient is open to Sig .
[2024-09-25] MEDS: ALBUTEROL/IPRATROPIUM 3 ML AMPUL INH (19:45)
[2024-09-25] MEDS: ROPINIROLE 1 MG TABLET 2 MG PO (20:04)
[2024-09-25] MEDS: TRAZODONE 50 MG TABLET PO (20:04)
--- NOTE | 2024-09-26 00:13 | PC.NURSE ---
Pt emptied Montoya cath into toilet. Educated pt the importance of measuring intake and output while in the hospital. Pt verbalized understanding.
[2024-09-26 03:28] VITALS: BP 131/59; PULSE 104; RESP 20; TEMP 37; O2SAT 96
[2024-09-26 05:06] LABS: Add Manual Diff / Slide Review NO; Basophils Absolute Auto 0 /uL (0-100); Basophils Percent Auto 0.9 % (0-2); Eosinophils Absolute Auto 200 /uL (0-450); Eosinophils Percent Auto 4.1 % (2-4); Hematocrit 34.9 % (41-53); Hemoglobin 11.6 g/dL (13.5-17.5); Lymphocytes Absolute Auto 1300 /uL (1100-4500); Lymphocytes Percent Auto 24.7 % (25-40); Mean Corpuscular HGB Conc 33.2 % (30-36); Mean Corpuscular Hemoglobin 32.5 PG (26-34); Mean Corpuscular Volume 97.8 fL (80-100); Monocytes Absolute Auto 600 /uL (0-900); Monocytes Percent Auto 12.1 % (3-14); Neutrophils Absolute Auto 3100 /uL (1500-7000); Neutrophils Percent Auto 58.2 % (50-75); Platelet Count 131 X10^3/uL (150-400); Red Blood Cell Count 3.57 X10^6/uL (4.5-5.9); Red Cell Distribution Width 18.1 % (11.6-14.8); White Blood Cell Count 5.4 X10^3/uL (4.5-11.0)
[2024-09-26 05:12] LABS: Alanine Aminotransferase 42 IU/L (<50); Albumin 3.7 g/dL (3.5-5.0); Alkaline Phosphatase 113 U/L (38-126); Aspartate Aminotransferase 38 IU/L (17-59); BUN Creatinine Ratio 13.3 (6-22); Bilirubin Total 1.1 mg/dL (0.2-1.3); Blood Urea Nitrogen 17 mg/dL (9-20); Calcium 9.2 mg/dL (8.4-10.2); Carbon Dioxide 37 mmol/L (22-32); Chloride 96 mmol/L (98-107); Estimated Glomerular Filt Rate > 60 mL/min (>60); Globulin 3.6 g/dL (1.7-4.1); Glucose 134 mg/dL (80-110); HEMOLYSIS < 15 (0-50); Potassium 3.9 mmol/L (3.4-5.1); Sodium 136 mmol/L (137-145); Total Protein 7.3 g/dL (6.3-8.2)
--- NOTE | 2024-09-26 06:15 | DI.US.S_ITS ---
PROCEDURE: US ABDOMEN COMPLETE INDICATIONS: varices TECHNIQUE: Real-time scanning was performed of the abdominal and retroperitoneal organs, with image documentation. COMPARISON: [facility], CT, CT KIDNEY URETER BLADDER (KUB), 06/08/2023, 7:47. [facility], CT, CT ANGIO CHEST PE PROTOCOL, 09/24/2024, 17:47. [facility], US, US ABDOMEN LIMITED, 01/10/2022, 8:45. FINDINGS: Liver: Measures 14.6 cm. Increased in echogenicity. Decreased sonographic penetration. The main portal vein measures 1.4 cm. Prominent. Portal vein demonstrates hepatopetal flow. Gallbladder: Absent. Biliary ducts: Intrahepatic bile ducts are not well seen. Extrahepatic bile duct caliber measures 4 mm. Normal is 6-7 mm or less in diameter, or 10 mm or less post-cholecystectomy. Pancreas: Not well seen. Spleen: Spleen measures within normal limits. Measures 11.5 cm. However, appears prominent on the prior CT. Kidneys: Kidneys are normal in size and echotexture. Right kidney measures 13.1 cm long; left kidney measures 11.7 cm long. No hydronephrosis. Echogenic focus at the inferior pole the left kidney. This could represent a cortical calcification. No solid masses. Aorta: Visualized aorta is normal in caliber at less than 3 cm. Iliacs: Proximal common iliac arteries are normal in caliber at less than 2.5 cm. IVC: Intrahepatic inferior vena cava is patent. Miscellaneous: No free abdominal fluid. IMPRESSION: Limited exam due to acoustic windows and body habitus. 1. Increased hepatic echogenicity most consistent with hepatic steatosis. Other forms of hepatocellular disease could have similar appearance. There is decreased sonographic penetration. 2. The main portal vein demonstrates hepatopetal flow. The main portal vein is prominent caliber. This finding could be seen in the setting of portal hypertension. 3. No ascites seen. Dictated by: Allen Muñoz M.D. on 09/26/2024 at 11:16 Approved by: Allen Muñoz M.D. on 09/26/2024 at 11:24
--- NOTE | 2024-09-26 06:17 | P.PN_ITS ---
Subjective Subjective Date Patient Seen: 09/26/24 Time Patient Seen: 06:17 Interval history: Patient was admitted on September 24 after presenting to the emergency department with increasing fatigue weakness and some dyspnea with activity. Reported maybe coughing up some blood-tinged sputum. ER evaluation mostly unremarkable. Elevated lactate but normal white blood cell count. CT angiography of the chest unremarkable for pulmonary embolism or other infiltrate or other changes in lung. Patient previously diagnose with significant restrictive lung disease secondary to his obesity. Had previously been seeing Pulmonary Medicine and had full workup (this occurred in about 2015) that failed to demonstrate any intrinsic lung disease beyond the restrictive lung disease secondary to the mechanics of his respiration with his obesity etcetera Patient recently dealing with issues with his urinary tract. Had a functioning suprapubic catheter but this became dislodged he could not be replaced now relying on standard urinary catheter in the urethra that is being replaced once a week we at the urology clinic here at [facility] Yesterday patient was up with physical therapy. Did desaturate with activity. Required small amount of supplemental oxygen to maintain oxygen saturation Patient was diuresed in the hopes that some element of his increased dyspnea might be due to volume overload but that does not seem to have made much difference. Creatinine in his now bumped slightly. Exam Vital Signs (past 8 hours): - 09/26/24 03:28 Temperature 98.6 F Pulse Rate 104 H Respiratory Rate 20 Blood Pressure 131/59 L Pulse Oximetry 96 Oxygen Flow Rate 3 Fraction of Inspired Oxygen 28 SaO2/FiO2 Ratio 339 Oxygen Delivery Method Nasal Cannula Oxygen Flow Rate 3 Objective Labs 09/26/24 04:22 09/26/24 04:22 Labs: Laboratory Results - last 24 hr 09/26/24 04:22 WBC 5.4 RBC 3.57 L Hgb 11.6 L Hct 34.9 L MCV 97.8 MCH 32.5 MCHC 33.2 RDW 18.1 H Plt Count 131 L Neut % (Auto) 58.2 Lymph % (Auto) 24.7 L [place] % (Auto) 12.1 Eos % (Auto) 4.1 H Baso % (Auto) 0.9 Neut # (Auto) 3100 Lymph # (Auto) 1300 [place] # (Auto) 600 Eos # (Auto) 200 Baso # (Auto) 0 Sodium 136 L Potassium 3.9 Chloride 96 L Carbon Dioxide 37 H BUN 17 Creatinine 1.28 H Estimated GFR > 60 BUN/Creatinine Ratio 13.3 Glucose 134 H Calcium 9.2 Total Bilirubin 1.1 AST 38 ALT 42 Alkaline Phosphatase 113 Total Protein 7.3 Albumin 3.7 Globulin 3.6 Albumin/Globulin Ratio 1.0 [facility] Medical History BMI 50.0-59.9, adult (08/2024) Sepsis (06/2023) Suprapubic catheter dysfunction Sinus tachycardia Chronic renal failure, stage 3a Acquired buried penis Urinary retention Urinary incontinence Iron deficiency Polyneuropathy, unspecified Anemia of chronic disease Mixed hyperlipidemia Eczema (~1996) Restless leg syndrome (~2013) Tinnitus (~1972) Recurrent sinusitis (~2007) Frequent UTI (~2017) Pancreatitis (~1995) Obstructive sleep apnea of adult (~2013) History of kidney stones Phimosis Lower urinary tract symptoms History of prostate cancer (~2016) Chronic venous insufficiency (04/10/16) Restrictive lung disease (08/16/15) Primary insomnia (08/16/15) Morbid obesity (08/16/15) 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 Acute on chronic respiratory failure-at this point I think the most likely etiology is his morbid obesity with his BMI at nearly 58 as of this admission. Previously demonstrated significant restrictive lung mechanics on pulmonary function testing without evidence of any other intrinsic lung disease. Patient's BNP upon admission was essentially normal his CT angiography was normal thus arguing against there being an infectious or volume overload or congestive heart failure related etiology for his ongoing symptoms At this point I think he merely he was going to require home oxygen therapy, I am going to have respiratory therapy work on arranging for this. I agree however, that he was doing okay and now is not with some new hypoxia. At this point I do not have a good etiology for his new hypoxia. Does not appear to have an infectious process based on CT imaging, does not appear to have congestive heart failure based on CT imaging, and no pulmonary emboli either although that does fit his story and he was at high-risk. Please see discussion regarding VTE below. Will also be obtaining echo was part of his evaluation so will see if there is more evidence than not of congestive heart failure even though his BNP was really quite reassuring and probably rules out significant congestive heart failure as a source of his hypoxia. 2. Morbid obesity-contributing factor to all the patient's active medical problems. His resulted in his inability to empty his bladder effectively requiring catheterization of some sort either suprapubic or urethral. Obviously as above causing his respiratory distress in my opinion. Does put him at higher than average risk of venous thromboembolism. Also is resulting in obstructive sleep apnea requiring BiPAP at night 3. VTE prophylaxis-patient quite concerned about the possibility of pulmonary emboli. Apparently a relative was diagnosed with pulmonary emboli after negative CT scan. Patient is at high-risk given his obesity and relative inactivity. D-dimer was elevated. However patient was chronic thrombocytopenia and chronic anemia that is putting him at much higher than average risk for long-term anticoagulation with any sort anticoagulant. In addition this patient requires frequent catheter exchanges may well be having repeat suprapubic catheter placed etcetera. This also would put him at higher than average risk to be on long-term anticoagulation. Altogether, I would be quite hesitant to initiate long-term anticoagulation given these factors and lack of specific objective findings to help support institution of that therapy. If we had specific objective findings that would change the equation, the benefit would very clearly outweigh the risk at that point, in my opinion. Also in my opinion, the benefit at this point does not outweigh the risk. However, to find some objective evidence that might support anticoagulation, I think doing bilateral lower extremity ultrasounds looking for DVT and doing an echo to look for evidence of right heart strain would make sense. However I know his size he was going to limit the effectiveness of the echo to some degree. Patient currently on 0.25 milligram/kilos b.i.d. of Lovenox which would be more of a empiric prophylactic dose than treatment dose. 4. Disposition-patient likely can go home with home oxygen therapy once arranged. Hopefully can be discharged home tomorrow, Thursday the september 5. -patient due for urinary catheter exchange today in the urology clinic. I have reached out to his urologist pointed out patient was now in inpatient and suggesting that catheter can be replaced while he is here. Last had a replaced on the 19 September with the standard 18 [place] catheter. He was told to return today for replacement, he appears to require placement over a guidewire given his body habitus and difficulty with sediment etcetera. Will rely on urology to manage this aspect of his care. Time-Based Coding :: [TOTAL MINUTES] spent with patient and on the chart (including review of chart, obtaining history, exam, reviewing outside data, placing orders, documenting exam and treatment plan, and counseling patient) on [DATE].
[2024-09-26] MEDS: PANTOPRAZOLE DR 40 MG TABLET PO (06:28)
--- NOTE | 2024-09-26 08:13 | DI.US.S_ITS ---
PROCEDURE: US PERIPH VENOUS LOW EXTREM BI INDICATIONS: DVT TECHNIQUE: Real-time imaging, as well as color and pulse Doppler interrogation, were performed of the deep veins of both legs from the inguinal ligament to the popliteal fossa, with documentation of the visualized calf veins. COMPARISON: [facility], CT, CT ANGIO CHEST PE PROTOCOL, 09/24/2024, 17:47. FINDINGS: Right: The common femoral, femoral, popliteal, and the visualized calf veins are normally compressible, and free of intraluminal thrombus. Color and pulse Doppler demonstrate normal phasic intravascular flow. There is normal augmentation response to distal compression maneuver. Left: The common femoral, femoral, popliteal, and the visualized calf veins are normally compressible, and free of intraluminal thrombus. Color and pulse Doppler demonstrate normal phasic intravascular flow. There is normal augmentation response to distal compression maneuver. IMPRESSION: No findings of deep venous thrombosis in either lower extremity. Dictated by: Allen Muñoz M.D. on 09/26/2024 at 9:21 Approved by: Allen Muñoz M.D. on 09/26/2024 at 9:22
[2024-09-26] MEDS: MELOXICAM 7.5 MG TABLET PO (09:27)
[2024-09-26] MEDS: FERROUS SULFATE 325 MG TABLET PO (09:27)
[2024-09-26] MEDS: DULOXETINE 30 MG CAPSULE PO (09:28)
[2024-09-26] MEDS: AZITHROMYCIN 250 MG TABLET PO (09:28)
[2024-09-26] MEDS: ENOXAPARIN 40 MG/0.4 ML SYRINGE SUBCUT ×2 (09:28→20:39)
[2024-09-26] MEDS: POTASSIUM CHLORIDE 10 MEQ TAB PO (09:28)
--- NOTE | 2024-09-26 09:32 | OT.IP.EVAL ---
Past Medical History (Last Reviewed 09/24/24 @ 18:52 by Adriana Meyers PA-C) Acquired buried penis Anemia of chronic disease BMI 50.0-59.9, adult (08/2024) Chronic renal failure, stage 3a Chronic venous insufficiency (04/10/16) Eczema (~1996) Frequent UTI (~2017) 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) History of kidney stones History of prostate cancer (~2016) Iron deficiency Lower urinary tract symptoms Mixed hyperlipidemia Morbid obesity (08/16/15) Obstructive sleep apnea of adult (~2013) Pancreatitis (~1995) Phimosis Polyneuropathy, unspecified Primary insomnia (08/16/15) Recurrent sinusitis (~2007) Restless leg syndrome (~2013) Restrictive lung disease (08/16/15) Sepsis (06/2023) Sinus tachycardia Suprapubic catheter dysfunction Tinnitus (~1972) Urinary incontinence Urinary retention Surgical History (Last Reviewed 09/24/24 @ 18:52 by Adriana Meyers PA-C) Anesthesia Chronic suprapubic catheter History of common bile duct surgery (~1997) History of transurethral resection of bladder tumor (TURBT) (2023) Status post knee surgery (~1993) Occupational Therapy Inpatient Evaluation/Re-Eval M1 PT/OT-IP Prior Functional Status Start: 09/25/24 10:35 Freq: NEEDED Status: Active Protocol: Document 09/26/24 11:01 CGR (Rec: 09/26/24 11:15 CGR [id number]) Medical Review Prior Functional Status Medical History Reviewed Yes Communication Pt is an effective verbal communicator. Mobility and Gait Mod I to superv with SPC in house Activities of Daily Living and IADL's Pt has caregiver assistance 5 days a week from [phone] to assist with cooking, cleaning, laundry, errands, transportation and even bathing and dressing because it's faster. He drives himself to [employer] on Sundays. Prior Functional Level (Other details) Uncle lives in same home and has separate life. ANITRA lives across the street and is HCPOA . Social History Household Members none Living Arrangements House Number of Floors (Floors) One Floor Number of Stairs To Enter/Railing? 2 steps with left rail ascend to enter home Home Environment Standard Height Toilet,Walk in Shower Home Equipment Straight Cane,Manual Wheelchair Employment Status Retired M2 OT-IP Current Condition Start: 09/26/24 11:00 Freq: Status: Active Protocol: Document 09/26/24 11:01 CGR (Rec: 09/26/24 11:15 CGR [id number]) Occupational Therapy Current Condition Current Condition Evaluation Date 09/26/24 Treatment Diagnosis acute hypoxic respiratory failure from obesity Diagnosis Onset Date 09/24/24 M3 OT- IP Subjective and Pain Start: 09/26/24 11:00 Freq: Status: Active Protocol: Document 09/26/24 11:01 CGR (Rec: 09/26/24 11:15 CGR [id number]) OT- Subjective Occupational Therapy Visit Type Type Initial Evaluation Visit Start Time 09:10 Visit Stop Time 09:32 Occupational Therapy Visit Comments Patient Comments This has been going on for a month where I am SOB with any activity and this isn't my normal. OT Pain Assessment Pain When Pain Assessed At Rest Pain Present Pain Present Denied Pain M4 OT- IP ADL's Start: 09/26/24 11:00 Freq: Status: Active Protocol: Document 09/26/24 11:01 CGR (Rec: 09/26/24 11:15 CGR [id number]) OT [id number] Comments OT Self-Feeding Comments not meal time OT ADL-Grooming General Evaluation Grooming Ability Independent Areas Needing Assistance Combing/Brushing Hair,Face Washing Comments OT Grooming Comments standing at sink OT ADL-Oral Care General Eval Oral Care Ability Independent Areas of Assistance Brushing Teeth Comments Oral Care Comments IND standing at sink OT ADL-Dressing General Eval Lower Body Dressing Ability Minimal Assistance,Maximum Assistance Areas Needing Assistance Pants/Shorts,Socks Comments OT Dressing Comments seated in chair. This is his baseline. OT ADL-Toileting General Evaluation Toileting Ability Independent Comments OT Toileting Comments simulated seated on toielt OT ADL-Bathing Comments OT Bathing Comments not performed M5 OT- IP IADL's Start: 09/26/24 11:00 Freq: Status: Active Protocol: Document 09/26/24 11:01 CGR (Rec: 09/26/24 11:15 CGR [id number]) OT-Instrumental Activities of Daily Living Deficits IADL Deficits Identified No Deficits Home Safety Awareness Awareness of Need for Assistance at Home Good Awareness Ability to Problem Solve Emergency Able to Problem Solve Situations Medication Management Medication Management No Deficits Identified Money Management Money Management No Deficits Identified Meal Preparation Meal Preparation Caregiver Provides Assist Arc Cutter Arc Cutter Caregiver Provides Assist Driving Driving Comments Pt drives minimally M6 OT- IP Functional Cognition Start: 09/26/24 11:00 Freq: Status: Active Protocol: Document 09/26/24 11:01 CGR (Rec: 09/26/24 11:15 R [id number]) Cognitive Factors Limiting Selfcare Function Cognitive Ability Level of Alertness Alert Patient Orientation Name,Age,Birthday,Month,Date, Year,Day of Week,Place, Situation Attention Span Ability Capable of Focused Attention, Capable of Sustained Attention Ability to Follow Commands Able to Follow Multi-Step Commands OT- Vision and Hearing OT- Hearing Assessment OT- Hearing Assessment WFL OT- Vision Assessment Vision History Cataracts Visual Acuity Glasses For Reading Visual Attentiveness WFL Occular Pursuits WFL Visual Convergence WFL M7 OT- IP Mobility and Balance Start: 09/26/24 11:00 Freq: Status: Active Protocol: Document 09/26/24 11:01 CGR (Rec: 09/26/24 11:15 R [id number]) OT-Transfer Assessment Sit to and From Stand Sit to and from Stand Standby Assistance Transfers Transfer Ability Standby Assistance Technique Transfer Destination Chair,Toilet Transfer Technique Stand Step Pivot Devices Transfer Assistive Devices Straight Cane Comments Mobility Comments Pt requested to use his SPC. Noted that P.T. recommended rolling walker for helping with endurance. Pt still declines use of walker. OT- Balance Assessment Sitting Balance and Reactions Static Sitting Balance Ability Normal Dynamic Sitting Balance Ability Normal M8 OT- IP Objective Assessments Start: 09/26/24 11:00 Freq: Status: Active Protocol: Document 09/26/24 11:01 CGR (Rec: 09/26/24 11:15 R [id number]) OT Gross Range of Motion Upper Extremity Range of Motion Assessment Within Functional Limits OT Strength Upper Extremity Strength Assessment Within Functional Limits Comments Strength Comments / OT- Coordination Assessment Upper Extremity Finger to Nose Test Within Functional Limits Finger Tapping Test Within Functional Limits OT-Muscle Tone Assessment Muscle Tone WNL Yes OT Sensation Assessment Comments Summary Comments Pt states he has neuropathy to B feet and hands. In his hands, he has numbness to fingers and palm but back of hands and wrists proximal are normal. Edema Edema Absent M9 OT- IP Assessment and Plan Start: 09/26/24 11:00 Freq: Status: Active Protocol: Document 09/26/24 11:01 CGR (Rec: 09/26/24 11:15 CGR [id number]) OT Summary Assessment and Plan Potential Rehabilitation Potential Fair Analytic Complexity at Evaluation Low Summary OT Impairments Sensation,Functional Mobility, Grooming,Dressing,Toileting, Bathing,Toilet Transfers, Shower Transfers,Activity Tolerance Progress Towards Goals Progressing Toward Goals Assessment Summary Pt presents as a low complexity evaluation s/p admit for SOB. Pt appears to be close to his baseline for ADLS as he gets a significant amount of assist at home, however, his breathing appears to be limiting his mobility and ADLs more than his baseline. Recommend 1-2 more sessions for addressing energy conservation and potentially LB dressing if pt is agreeable . Pt is safe for discharge home with current supports. Goals Dressing Goal Independent,Deli/Bakery Associate,Sock Aid Patient/Caregiver Education Goal Demonstrate Energy Conservation and Pacing Days to Meet Goals 2 Frequency of Treatment Other frequency 5x a week Treatment Plan OT Treatment Plan ADL Training,Functional Mobility,Patient/Family Education,Discharge Planning Other Treatment Recommendations and Next energy conservation, LB Treatment Focus dressing with DME Discharge Recommendations OT Discharge Recommendations Home with Assistance Transportation Needs at Discharge Private Vehicle
[2024-09-26] MEDS: ALBUTEROL/IPRATROPIUM 3 ML AMPUL INH ×2 (10:26→20:20)
[2024-09-26 10:27] VITALS: PULSE 103; RESP 18; O2SAT 95
[2024-09-26 11:11] VITALS: BP 138/80; PULSE 107; TEMP 36.8; O2SAT 94
--- NOTE | 2024-09-26 11:41 | CM.DPC ---
DCP Cont: Per MD, pt not yet stable for discharge yet today and remains on 3LO2 and placed orders for RT to assess for new home oxygen for plan of likely discharge home tomorrow 09/27 and pt's chronic ni due to be changed today and to happen by nursing staff here prior to d/c as pt will miss his scheduled Urology appointment today and Dr. Goldstein updated Urologist. Per OT, recommending home with assist. Plan: SW to follow for plan of likely d/c home tomorrow with PP CG assist and likely new home oxygen to be set up by RT. Lisa Graf MSW
--- NOTE | 2024-09-26 15:04 | PM.CN ---
History of Present Illness Consult details Date Patient Seen: 09/26/24 Time Patient Seen: 15:04 Chief complaint: low oxygen Reason for consult: Ni catheter exchange Narrative: 68 y/o M w/ h/o high-risk prostate cancer treated with XRT and ADT (completed in 2017) who has been managed with an SPT and/or a ni catheter for years now and is currently admitted for management of increased fatigue, weakness and dyspnea w/ activity. Urology was consulted for assistance w/ a ni catheter exchange as he was previously scheduled to have it exchanged today at 1400 in the Urology clinic. Meds Home Medications and Allergies Home Medications Medication Instructions Recorded Confirmed Type ropinirole 2 mg tablet 2 mg PO BEDTIME 06/26/20 09/24/24 History trazodone 50 mg tablet 50 mg PO BEDTIME 06/26/20 09/24/24 History ferrous sulfate 325 mg (65 mg 325 mg PO DAILY 09/25/22 09/24/24 History iron) tablet meloxicam 7.5 mg tablet 7.5 mg PO DAILY #90 tabs 10/20/23 09/24/24 Rx duloxetine 30 mg capsule,delayed 30 mg PO DAILY #90 caps 12/18/23 09/24/24 Rx release omeprazole 40 mg capsule,delayed 40 mg PO DAILY #90 caps 01/19/24 09/24/24 Rx release food supplemt, lactose-reduced 1 ea PO QID #28,440 mL 02/08/24 09/24/24 Rx (Ensure Original oral liquid) furosemide 20 mg tablet 20 mg PO BID #180 tabs 05/02/24 09/24/24 Rx potassium chloride 10 mEq 10 meq PO DAILY #90 tabs 05/13/24 09/24/24 Rx tablet,extended release methenamine hippurate 1 gram tablet 1 g PO BID #180 tabs 07/01/24 09/24/24 Rx oxycodone 5 mg tablet 5 mg PO Q8H PRN pain (scale score 09/07/24 09/24/24 Rx 7-10) #7 tabs albuterol sulfate 90 mcg/actuation 2 puff inhalation Q6H PRN 09/12/24 09/24/24 Rx aerosol inhaler shortness of breath or wheezing #8.5 grams inhalational spacing device #1 ea 09/12/24 09/24/24 Rx (Microchamber spacer) Allergies Allergy/AdvReac Type Severity Reaction Status Date / Time No Known Drug Allergies Allergy Verified 09/24/24 13:43 Review of Systems Review of Systems Narrative: CONSTITUTIONAL: Denies weight loss, fevers, chills. HEENT: Denies change in vision, hearing. RESP: Denies SOB, cough. CV: Denies palpations, CP. GI: Denies abdominal pain, nausea, vomiting, diarrhea. MSK: Denies myalgia, joint pain. SKIN: Denies rash, pruritus. NEURO: Denies headache, syncope. PSYCH: Denies recent change in mood, anxiety, depression. Exam Vital Signs (past 8 hours): - 09/26/24 08:00 09/26/24 10:27 09/26/24 11:11 Temperature 98.3 F Pulse Rate 103 H 107 H Respiratory Rate 18 Blood Pressure 138/80 Pulse Oximetry 95 94 Oxygen Delivery Method Nasal Cannula Room Air Fraction of Inspired Oxygen 28 SaO2/FiO2 Ratio 339 Oxygen Delivery Method Room Air Oxygen Flow Rate 3 Narrative Exam Narrative: GEN: Alert and oriented X3. No acute distress. Well-nourished. EYES: PERRLA, EOMI. HENT: Moist mucus membranes, no scleral icterus, normal neck ROM. RESP: Unlabored breathing, equal rise and fall of chest bilaterally, no cyanosis appreciated. CV: No peripheral edema, unremarkable heart rate. ABD: Soft, non-tender, non-distended, no palpable masses. : Ni catheter secured and draining clear yellow urine. Balloon deflated and a 0.035 Amplatz Super Stiff ureteral guidewire was advanced through his catheter and into his bladder. A new 18Fr muscogee tip catheter was then advanced over the guidewire and into his bladder. The guidewire was removed and 10cc of sterile water was utilized for balloon insufflation. His catheter was then easily flushed using a Tumi syringe. EXT: No edema, clubbing or cyanosis. SKIN: No rashes or lesions. NEURO: No focal neurologic deficits, CN II-XII grossly intact. PSYCH: Cooperative, appropriate mood and affect. Objective Labs 09/26/24 04:22 09/26/24 04:22 Labs: Laboratory Results - last 24 hr 09/26/24 04:22 WBC 5.4 RBC 3.57 L Hgb 11.6 L Hct 34.9 L MCV 97.8 MCH 32.5 MCHC 33.2 RDW 18.1 H Plt Count 131 L Neut % (Auto) 58.2 Lymph % (Auto) 24.7 L Lau[place] % (Auto) 12.1 Eos % (Auto) 4.1 H Baso % (Auto) 0.9 Neut # (Auto) 3100 Lymph # (Auto) 1300 [place] # (Auto) 600 Eos # (Auto) 200 Baso # (Auto) 0 Sodium 136 L Potassium 3.9 Chloride 96 L Carbon Dioxide 37 H BUN 17 Creatinine 1.28 H Estimated GFR > 60 BUN/Creatinine Ratio 13.3 Glucose 134 H Calcium 9.2 Total Bilirubin 1.1 AST 38 ALT 42 Alkaline Phosphatase 113 Total Protein 7.3 Albumin 3.7 Globulin 3.6 Albumin/Globulin Ratio 1.0 PFSH Medical History BMI 50.0-59.9, adult (08/2024) Sepsis (06/2023) Suprapubic catheter dysfunction Sinus tachycardia Chronic renal failure, stage 3a Acquired buried penis Urinary retention Urinary incontinence Iron deficiency Polyneuropathy, unspecified Anemia of chronic disease Mixed hyperlipidemia Eczema (~1996) Restless leg syndrome (~2013) Tinnitus (~1972) Recurrent sinusitis (~2007) Frequent UTI (~2017) Pancreatitis (~1995) Obstructive sleep apnea of adult (~2013) History of kidney stones Phimosis Lower urinary tract symptoms History of prostate cancer (~2016) Chronic venous insufficiency (04/10/16) Restrictive lung disease (08/16/15) Primary insomnia (08/16/15) Morbid obesity (08/16/15) 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) Surgical History History of transurethral resection of bladder tumor (TURBT) (2023) Chronic suprapubic catheter Anesthesia History of common bile duct surgery (~1997) Status post knee surgery (~1993) Family History Brother Prostate cancer Liver cancer Father Parkinson disease Grandfather Hepatitis Grandfather History of heart disease Grandmother Cancer Social History household members: none Tobacco & Substance Use Smoking Status: Never smoker alcohol intake: current Assessment & Plan Assessment and plan (1) Chronic indwelling Ni catheter: Status: Acute Plan: 68 y/o M w/ h/o high-risk prostate cancer treated with XRT and ADT (completed in 2017) who has been managed with an SPT and/or ni catheter for years now. Discussed that I was unable to replace his SPT on 07 Sep 2024 secondary to his body habitus (do not have a long enough introducer needle at [facility]), therefore, a ni catheter was simply placed. Discussed that we have sent a referral to another Urologist to place a new SPT ([facility] was not interested in performing this and denied the referral). In the interim, he will return to Urology clinic on a weekly basis to exchange his ni catheter over a guidewire (he previously would have significant sediment that impeded exchange of his SPT over a wire, do not want this to happen with his ni catheter). Discussed that I could then resume exchanging his SPT on a 2-3 week basis due to the aforementioned sediment. He is currently admitted for management of increased fatigue, weakness and dyspnea w/ activity. Urology was consulted to exchange his ni catheter. Please have him return to Urology clinic on 03 Oct 2024 at 1300 to have his catheter exchanged, the appointment was already made for him. Time-Based Coding :: [TOTAL MINUTES] spent with patient and on the chart (including review of chart, obtaining history, exam, reviewing outside data, placing orders, documenting exam and treatment plan, and counseling patient) on [DATE]. PROFEE Charge Codes Inpatient or Observation consultation: [id number]
[2024-09-26 18:00] VITALS: BP 132/68; PULSE 111; RESP 18; TEMP 36.7; O2SAT 95
[2024-09-26 20:00] VITALS: BP 137/61; PULSE 100; RESP 19; TEMP 36; O2SAT 96
[2024-09-26 20:20] VITALS: PULSE 99; RESP 20; O2SAT 95
[2024-09-26] MEDS: ROPINIROLE 1 MG TABLET 2 MG PO (20:38)
[2024-09-26] MEDS: TRAZODONE 50 MG TABLET PO (20:38)
[2024-09-27 04:00] VITALS: BP 137/69; PULSE 109; RESP 19; TEMP 35.8; O2SAT 93
[2024-09-27] MEDS: PANTOPRAZOLE DR 40 MG TABLET PO (05:42)
--- NOTE | 2024-09-27 06:49 | P.DS_ITS ---
History of Present Illness History of Present Illness Date Patient Seen: 09/27/24 Time Patient Seen: 06:49 Chief complaint: low oxygen Narrative: Patient presented to ER after several weeks of decreasing energy levels and oxygen levels he is obese without a history of hypertension or diabetes he has a history of prostate cancer with radiation that pretty much destroyed his urethra he did a couple of weeks ago attempt stoma revision with Dr. More which was unsuccessful he is currently using a catheter indwelling changed out weekly and has been on Augmentin for the last week for possible UTI without much improvement. Next catheter change out scheduled for Thursday at 2:[address] More's office. He does sleep with the BiPAP at home but reports he has been sleeping 16 hours a day and still feeling sleepy lately. Appetite has been decreased. He does have an old albuterol prescription but he has not been using it not sure if he has been wheezing endorses a gurgly cough here and there. Intake labs apart from hypoxia mostly unremarkable with a mild anemia and thrombocytopenia and an elevated D-dimer. He is concerned that his uncle on the side of the family he takes after had a similar presentation with a normal initial CTA that several months later developed into severe PEs. {from Dr. Carlson's H&P 09/25/2024} Discharge Providers Provider Date of admission: 09/26/24 11:41 Discharge Date: 09/27/24 Primary care physician: Vince Goldstein MD Consults: 09/24/24 19:35 Consult to Hospitalist Service Stat Comment: Consulting Provider: Steven Carlson Reason for consultation: acute on chronic SHOB w/ New 02 req Has provider been notified: Yes 09/25/24 09:42 Consult to Occupational Therapy Evaluate & Treat Comment: Physician Instructions: Evaluate and treat Consult to Physical Therapy Evaluate & Treat Comment: Physician Instructions: Evaluate and Treat Discharge provider: Vince Goldstein MD Summary Hospital Course Discharge Diagnosis: 1. Acute respiratory failure with hypoxia 2. Morbid obesity 3. Chronic indwelling urinary catheter 4. Restrictive lung disease 5. Obstructive sleep apnea 6. Pulmonary edema/volume overload Hospital Course: He was above patient was admitted to the hospital with evidence of mild hypoxia. He was placed on both antibiotic therapy and diuretic therapy as etiology for his hypoxia it was not clear. Imaging did not suggest any evidence of infectious etiology in antibiotic therapy was subsequently discontinued at discharge Patient perhaps did improve slightly with diuresis. Also had a bump in his creatinine so diuresis was scaled back down. He will be discharged on a slightly higher dose diuretic therapy given his improvement in the hospital with the additional doses of Lasix as well as his lower extremity edema He was Montoya catheter was exchanged during this hospitalization by Urology with plans to replace it again on the 03 of October Patient was up and around with physical therapy felt to be fairly independent. He was evaluated for the possibility of home oxygen therapy as well but did not qualify as his oxygen saturations were quite good even with activity day prior to discharge Echocardiogram was performed, and it failed to demonstrate any evidence of right heart strain making multiple PEs less likely. Left ventricular function appear to be normal. There was some technical limitations this study because of patient's size, but appeared to be essentially normal. Status at Discharge Cognitive/behavioral status at discharge: at baseline, oriented Functional status at discharge: uses cane/walker Overall status at discharge: patient is progressing back to baseline Time Spent with Patient Time spent: Less than 30 minutes Exam Vital Signs (past 8 hours): - 09/27/24 04:00 Temperature 96.5 F L Pulse Rate 109 H Respiratory Rate 19 Blood Pressure 137/69 Pulse Oximetry 93 Oxygen Flow Rate 1 Fraction of Inspired Oxygen 24 SaO2/FiO2 Ratio 395 Oxygen Delivery Method Nasal Cannula Oxygen Flow Rate 1 Objective Labs 09/26/24 04:22 09/26/24 04:22 [facility] Medical History BMI 50.0-59.9, adult (08/2024) Sepsis (06/2023) Suprapubic catheter dysfunction Sinus tachycardia Chronic renal failure, stage 3a Acquired buried penis Urinary retention Urinary incontinence Iron deficiency Polyneuropathy, unspecified Anemia of chronic disease Mixed hyperlipidemia Eczema (~1996) Restless leg syndrome (~2013) Tinnitus (~1972) Recurrent sinusitis (~2007) Frequent UTI (~2017) Pancreatitis (~1995) Obstructive sleep apnea of adult (~2013) History of kidney stones Phimosis Lower urinary tract symptoms History of prostate cancer (~2016) Chronic venous insufficiency (04/10/16) Restrictive lung disease (08/16/15) Primary insomnia (08/16/15) Morbid obesity (08/16/15) 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) Surgical History History of transurethral resection of bladder tumor (TURBT) (2023) Chronic suprapubic catheter Anesthesia History of common bile duct surgery (~1997) Status post knee surgery (~1993) Family History Brother Prostate cancer Liver cancer Father Parkinson disease Grandfather Hepatitis Grandfather History of heart disease Grandmother Cancer Social History household members: none Smoking Status: Never smoker alcohol intake: current Discharge Assessment & Plan Assessment and Plan Plan of Treatment: Follow-up with Urology on 10/03/2024 as previously scheduled Follow-up with PCP in approximately 1 week's time Discharge Plan Discharge Plan Patient Disposition: Home Discharge orders & Medications Prescriptions: Continued omeprazole 40 mg capsule,delayed release(DR/EC) 40 mg PO DAILY Qty: 90 3RF Ensure Original Liquid 1 ea PO QID Qty: 08736 12RF potassium chloride 10 mEq tablet extended release 10 meq PO DAILY Qty: 90 3RF methenamine hippurate 1 gram tablet 1 g PO BID Qty: 180 3RF albuterol sulfate 90 mcg/actuation HFA aerosol inhaler 2 puff inhalation Q6H PRN (Reason: shortness of breath or wheezing) Qty: 8.5 6RF (DME) Microchamber Spacer See Rx Instructions .Route Qty: 1 0RF Rx Instructions: As directed meloxicam 7.5 mg tablet 7.5 mg PO DAILY Qty: 90 3RF ropinirole 2 mg tablet 2 mg PO BEDTIME Rx Instructions: 2-3 hrs before bedtime. trazodone 50 mg tablet 50 mg PO BEDTIME Rx Instructions: 2-3 hrs before bed ferrous sulfate 325 mg (65 mg iron) tablet 325 mg PO DAILY duloxetine 30 mg capsule,delayed release(DR/EC) 30 mg PO DAILY Qty: 90 3RF oxycodone 5 mg tablet 5 mg PO Q8H PRN (Reason: pain (scale score 7-10)) Qty: 7 0RF Changed furosemide 20 mg tablet 20 - 40 mg PO BID Qty: 360 1RF Rx Instructions: 40mg in am, 20mg in pm Follow up/Referrals: Jacob More DO [Physician] - 1 Week (Appt made for 10/03 @ 1300 in Urology) Vince Goldstein MD [Primary Care Provider] - 1 Week Discharge Health Status Multidrug resistant organism: No MDRO Diet/Activity/Treatments Diet: Diet as Tolerated Catheter: 2-way Montoya Visit Report/Discharge Packet Stand Alone Forms: Patient Portal/API Discharge Data Primary Care Provider: Vince Goldstein PROFEE Charge Codes Discharge inpatient/observation: [id number]
[2024-09-27 08:54] VITALS: PULSE 111; RESP 19; O2SAT 94
[2024-09-27] MEDS: MELOXICAM 7.5 MG TABLET PO (09:11)
[2024-09-27] MEDS: DULOXETINE 30 MG CAPSULE PO (09:11)
[2024-09-27] MEDS: FERROUS SULFATE 325 MG TABLET PO (09:11)
[2024-09-27] MEDS: ENOXAPARIN 40 MG/0.4 ML SYRINGE SUBCUT (09:11)
[2024-09-27] MEDS: POTASSIUM CHLORIDE 10 MEQ TAB PO (09:11)
[2024-09-27] MEDS: FUROSEMIDE 20 MG TABLET 40 MG PO (09:12)
[2024-09-27] MEDS: ALBUTEROL/IPRATROPIUM 3 ML AMPUL INH (09:13)
--- NOTE | 2024-09-27 11:22 | PC.NURSE ---
Patient reports feeling better today, tolerating room air, 90-94% this morning. Had breathing treatment and seen by Joshua, ate breakfast and sat up in chair. Montoya patent and draining clear yellow urine. Discharge instructions and home care handouts reviewed with patient, he states understanding and has no further questions or concerns at this time. IV removed intact. Patient has follow up appointment scheduled. Escorted out via wheelchair with all his belongings.
--- NOTE | 2024-09-27 12:02 | CM.DPC ---
DCP Cont. Reviwed EMR and team rounds for status updates. Pt has been medically cleared for home d/c, he did not need home O2 as his saturations did not qualify him. Family will transport him home. No further CM d/c needs are identified at this time.
== END 2024-09-27 11:15 | disposition home or self-care (01) | DRG 189 ==
LOC: ED 14:10 → AC 19:38
PROVIDERS: Emergency Medicine; Admitting Provider Family Medicine; Emergency Provider Student in an Organized Health Care Education/Training Program; PCP Internal Medicine; Referring Provider Student in an Organized Health Care Education/Training Program; Visit Provider Internal Medicine
DX: J96.11 Chronic respiratory failure with hypoxia (principal); J81.1 Chronic pulmonary edema; Z68.43 Body mass index [BMI] 50.0-59.9, adult; E66.01 Morbid (severe) obesity due to excess calories; G47.00 Insomnia, unspecified; D64.9 Anemia, unspecified; G47.33 Obstructive sleep apnea (adult) (pediatric); D69.6 Thrombocytopenia, unspecified; J98.4 Other disorders of lung; E87.70 Fluid overload, unspecified; G25.81 Restless legs syndrome; Z66 Do not resuscitate; Z96.0 Presence of urogenital implants; Z85.46 Personal history of malignant neoplasm of prostate
CPT/HCPCS: 36415; 71046; 71275; 76700; 80053; 82550; 83880; 84145; 84484; 85025; 85379; 87633; 93306; 93970; 94618; 94640; 94660; 94762; 96374; 97116; 97161; 97165; 97535; 99233; 99238; 99285; G0378; J1650; J1940; Q9957; Q9967

== ENCOUNTER 2024-10-11 00:15 | Emergency (ER) | payer MEDICARE, MEDICAID, SELFPAY ==
[2024-09-24 21:01] VITALS: BMI 57.7
[2024-10-11] VITALS (16 sets, daily range): BP systolic 107–121; BP diastolic 52–72; PULSE 109–121; RESP 20–22; TEMP 36.7–36.8; O2SAT 89–95
--- NOTE | 2024-10-11 00:36 | DI.RAD.S_ITS ---
PROCEDURE: XR CHEST 1V INDICATIONS: fall, sob TECHNIQUE: One view of the chest was acquired. COMPARISON: [facility], CR, XR CHEST 2V, 09/24/2024, 14:50. FINDINGS: Surgical changes and devices: None. Lungs and pleura: Low lung volumes, but otherwise lungs are clear. No pleural effusions or pneumothorax. Mediastinum: Mediastinal contours appear normal. Heart size is normal. Bones and chest wall: No suspicious bony lesions. Overlying soft tissues appear unremarkable. IMPRESSION: Low lung volumes, but otherwise lungs are clear. Approved by: [place] Hernández M.D.,Ph.D. on 10/11/2024 at 2:03
[2024-10-11 00:46] LABS: Add Manual Diff / Slide Review NO; Basophils Absolute Auto 100 /uL (0-100); Basophils Percent Auto 0.5 % (0-2); Eosinophils Absolute Auto 400 /uL (0-450); Eosinophils Percent Auto 3.2 % (2-4); Hematocrit 38.8 % (41-53); Hemoglobin 12.5 g/dL (13.5-17.5); Lymphocytes Absolute Auto 3500 /uL (1100-4500); Lymphocytes Percent Auto 27.7 % (25-40); Mean Corpuscular HGB Conc 32.3 % (30-36); Mean Corpuscular Hemoglobin 31.8 PG (26-34); Mean Corpuscular Volume 98.6 fL (80-100); Monocytes Absolute Auto 900 /uL (0-900); Monocytes Percent Auto 6.8 % (3-14); Neutrophils Absolute Auto 7700 /uL (1500-7000); Neutrophils Percent Auto 61.8 % (50-75); Platelet Count 162 X10^3/uL (150-400); Red Blood Cell Count 3.94 X10^6/uL (4.5-5.9); Red Cell Distribution Width 18.1 % (11.6-14.8); White Blood Cell Count 12.5 X10^3/uL (4.5-11.0)
[2024-10-11 00:52] LABS: Alanine Aminotransferase 37 IU/L (<50); Albumin 4.2 g/dL (3.5-5.0); Albumin Globulin Ratio 1.1 (1.0-2.8); Alkaline Phosphatase 123 U/L (38-126); Aspartate Aminotransferase 36 IU/L (17-59); BUN Creatinine Ratio 8.4 (6-22); Bilirubin Total 0.9 mg/dL (0.2-1.3); Blood Urea Nitrogen 13 mg/dL (9-20); Calcium 8.9 mg/dL (8.4-10.2); Carbon Dioxide 18 mmol/L (22-32); Chloride 100 mmol/L (98-107); Creatine Kinase 97 U/L (55-170); Estimated Glomerular Filt Rate 48 mL/min (>60); Glucose 171 mg/dL (80-110); HEMOLYSIS < 15 (0-50); Lipase 103 U/L (23-300); Potassium 3.8 mmol/L (3.4-5.1); Sodium 136 mmol/L (137-145); Total Protein 8.2 g/dL (6.3-8.2)
--- NOTE | 2024-10-11 00:53 | EKG_ITS ---
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
--- NOTE | 2024-10-11 01:03 | ED_ITS ---
HPI - SOB/Dyspnea General Chief Complaint: Shortness of Breath/Dyspnea Stated Complaint: SOB Time Seen by Provider: 10/11/24 00:16 Source: patient, EMS, RN notes reviewed and old records reviewed Mode of arrival: EMS Limitations: no limitations History of Present Illness HPI Narrative: 69-year-old male history of morbid obesity, bladder cancer, chronic indwelling Montoya with prior failed suprapubic catheter, chronic renal failure stage IIIA, dyslipidemia, restrictive lung disease and obstructive sleep apnea who presents with complaint of fall and hypoxia. Patient states he was home he was in his chair he went to transition out of it and fell with his chair tipping over. He states he tried for about an hour and a half to get off the floor but was unsuccessful ultimately called EMS with his life Alert for assistance. Patient states he waited because he thought he could get up. EMS states that when they got there patient did not have any complaints but was hypoxic at 82%. They note that they assisted he was sort of generally weak and so was transported here. Patient states he normally ambulates at home with assistive device. He denies any new symptoms. He denies any injuries, denies any headache, no neck or back pain, no chest pain or shortness of breath that is new. He states he does get short of breath with the exertion but states it has not worse than normal. Has chronic lower extremity edema he states also has not worsened. States he has a chronic cough with productive sputum but this is his normal. Patient notes no nausea or vomiting. No issues with bowel movements that are new. Patient does note that he has a chronic Montoya catheter placed after having suprapubic catheters that failed. Patient notes that his O2 sats has been running about 90% he was hospitalized here on 09/24/2024 and was discharged home on 09/27/2024 with a acute respiratory failure with hypoxia he was evaluated for home O2 but did not qualify. He did not have a CT angio at that time in the showed no pulmonary embolism. No known drug allergies. No tobacco, occasional alcohol, no recreational drugs. Patient notes that he also is frequently tachycardic 115 normal heart rate for him. Related Data Home Medications Medication Instructions Recorded Confirmed ropinirole 2 mg tablet 2 mg PO BEDTIME 06/26/20 10/04/24 trazodone 50 mg tablet 50 mg PO BEDTIME 06/26/20 10/04/24 ferrous sulfate 325 mg (65 mg 325 mg PO DAILY 09/25/22 10/04/24 iron) tablet Previous Rx's Medication Instructions Recorded meloxicam 7.5 mg tablet 7.5 mg PO DAILY #90 tabs 10/20/23 duloxetine 30 mg capsule,delayed 30 mg PO DAILY #90 caps 12/18/23 release omeprazole 40 mg capsule,delayed 40 mg PO DAILY #90 caps 01/19/24 release potassium chloride 10 mEq 10 meq PO DAILY #90 tabs 05/13/24 tablet,extended release methenamine hippurate 1 gram tablet 1 g PO BID #180 tabs 07/01/24 oxycodone 5 mg tablet 5 mg PO Q8H PRN pain (scale score 09/07/24 7-10) #7 tabs albuterol sulfate 90 mcg/actuation 2 puff inhalation Q6H PRN 09/12/24 aerosol inhaler shortness of breath or wheezing #8.5 grams inhalational spacing device #1 ea 09/12/24 (Microchamber spacer) furosemide 20 mg tablet 20 - 40 mg (1 - 2 x 20 mg) PO BID 09/27/24 #360 tabs food supplemt, lactose-reduced 1 ea PO QID #28,440 mL 10/04/24 (Ensure Original oral liquid) liraglutide 0.6 mg/0.1 mL (18 mg/3 See Rx Instructions SUBCUT 10/04/24 mL) subcutaneous pen injector .COMPLEX #6 mL Allergies Allergy/AdvReac Type Severity Reaction Status Date / Time No Known Drug Allergies Allergy Verified 10/04/24 11:19 Review of Systems Review of Systems ROS Unobtainable: All systems reviewed & are unremarkable except as noted in HPI and below Patient History Medical History BMI 50.0-59.9, adult (08/2024) Sepsis (06/2023) Suprapubic catheter dysfunction Sinus tachycardia Chronic renal failure, stage 3a Acquired buried penis Urinary retention Urinary incontinence Iron deficiency Polyneuropathy, unspecified Anemia of chronic disease Mixed hyperlipidemia Eczema (~1996) Restless leg syndrome (~2013) Tinnitus (~1972) Recurrent sinusitis (~2007) Frequent UTI (~2017) Pancreatitis (~1995) Obstructive sleep apnea of adult (~2013) History of kidney stones Phimosis Lower urinary tract symptoms History of prostate cancer (~2016) Chronic venous insufficiency (04/10/16) Restrictive lung disease (08/16/15) Primary insomnia (08/16/15) Morbid obesity (08/16/15) 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) Surgical History History of transurethral resection of bladder tumor (TURBT) (2023) Chronic suprapubic catheter Anesthesia History of common bile duct surgery (~1997) Status post knee surgery (~1993) Family History Brother Prostate cancer Liver cancer Father Parkinson disease Grandfather Hepatitis Grandfather History of heart disease Grandmother Cancer Social History household members: none Smoking Status: Never smoker alcohol intake: current Smoking Status: Never smoker alcohol intake frequency: 0-2 drinks per day Alcohol type: beer Exam Narrative Exam Narrative: GENERAL: Alert and oriented x three, obese male, mild distress HEENT: Head normocephalic, atraumatic, EOMI, pupils reactive, face symmetric, moist mucous membranes NECK: Supple, full range of motion CARDIOVASCULAR: Regular rate and rhythm without murmurs, rubs or gallops. Bilateral lower extremity edema. RESPIRATORY: Breath sounds equal bilaterally, no wheezes rales or rhonchi. No tachypnea, no accessory muscle use. ABDOMEN: Soft, nontender. Normoactive bowel sounds all 4 quadrants. No guarding or rebound, rigidity, no mass : No CVA tenderness EXTREMITIES: Normal range of motion, no clubbing or edema. Neurovascularly intact NEUROLOGICAL: Cranial nerves II through XII grossly intact. Moving all extremities SKIN: Warm, dry, no petechiae, no rashes or lesions. Initial Vital Signs Initial Vital Signs: Vital Signs Temperature 98.2 F 10/11/24 00:35 Pulse Rate 120 H 10/11/24 00:35 Respiratory Rate 20 10/11/24 00:35 Blood Pressure 112/52 L 10/11/24 00:35 Pulse Oximetry 91 10/11/24 00:35 Oxygen Delivery Method Room Air 10/11/24 00:35 Course Orders Ordered: ED Orders 10/11/24 00:23 BNP [NT-proBNP (BNP-Adult 18+)] Stat Complete Blood Count AUTO DIFF Stat Comprehensive Metabolic Panel Stat Lipase Stat Troponin & CK Cardiac Panel Stat 10/11/24 00:36 XR chest 1V Stat EKG-12 Lead Stat Vital Signs Vital signs: Vital Signs - 8 hr 10/11/24 00:35 10/11/24 00:36 10/11/24 00:43 Temperature 98.2 F Pulse Rate 120 H 116 H 110 H Respiratory Rate 20 Blood Pressure 112/52 L Pulse Oximetry 91 89 L 91 Oxygen Delivery Method Room Air Nasal Cannula Oxygen Flow Rate 2 Fraction of Inspired Oxygen 28 10/11/24 01:00 10/11/24 01:30 10/11/24 02:01 Temperature Pulse Rate 109 H 109 H 121 H Respiratory Rate Blood Pressure Pulse Oximetry 93 91 93 Oxygen Delivery Method Oxygen Flow Rate Fraction of Inspired Oxygen 10/11/24 02:30 10/11/24 03:00 10/11/24 03:30 Temperature Pulse Rate 110 H 111 H 115 H Respiratory Rate Blood Pressure Pulse Oximetry 92 92 93 Oxygen Delivery Method Oxygen Flow Rate Fraction of Inspired Oxygen 10/11/24 03:39 10/11/24 03:39 10/11/24 04:00 Temperature Pulse Rate 115 H 115 H Respiratory Rate Blood Pressure 107/72 Pulse Oximetry 93 91 Oxygen Delivery Method Oxygen Flow Rate Fraction of Inspired Oxygen 10/11/24 04:30 10/11/24 05:00 10/11/24 05:30 Temperature Pulse Rate 114 H 114 H 118 H Respiratory Rate Blood Pressure Pulse Oximetry 93 93 95 Oxygen Delivery Method Oxygen Flow Rate Fraction of Inspired Oxygen 10/11/24 06:00 10/11/24 06:33 Temperature 98.0 F Pulse Rate 115 H 114 H Respiratory Rate 22 Blood Pressure 121/67 Pulse Oximetry 94 91 Oxygen Delivery Method Room Air Oxygen Flow Rate Fraction of Inspired Oxygen MDM - SOB/Dyspnea Lab Data 10/11/24 00:23 10/11/24 00:23 Labs: Lab Results 10/11/24 Range/Units 00:23 WBC 12.5 H (4.5-11.0) X10^3/uL RBC 3.94 L (4.5-5.9) X10^6/uL Hgb 12.5 L (13.5-17.5) g/dL Hct 38.8 L (41-53) % MCV 98.6 (80-100) fL MCH 31.8 (26-34) PG MCHC 32.3 (30-36) % RDW 18.1 H (11.6-14.8) % Plt Count 162 (150-400) X10^3/uL Neut % (Auto) 61.8 (50-75) % Lymph % (Auto) 27.7 (25-40) % [place] % (Auto) 6.8 (3-14) % Eos % (Auto) 3.2 (2-4) % Baso % (Auto) 0.5 (0-2) % Neut # (Auto) 7700 H (8666-0482) /uL Lymph # (Auto) 3500 (8672-0217) /uL [place] # (Auto) 900 (0-900) /uL Eos # (Auto) 400 (0-450) /uL Baso # (Auto) 100 (0-100) /uL Sodium 136 L (137-145) mmol/L Potassium 3.8 (3.4-5.1) mmol/L Chloride 100 (98-107) mmol/L Carbon Dioxide 18 L (22-32) mmol/L BUN 13 (9-20) mg/dL Creatinine 1.54 H (0.66-1.25) mg/dL Estimated GFR 48 L (>60) mL/min BUN/Creatinine Ratio 8.4 (6-22) Glucose 171 H (80-110) mg/dL Calcium 8.9 (8.4-10.2) mg/dL Total Bilirubin 0.9 (0.2-1.3) mg/dL AST 36 (17-59) IU/L ALT 37 (<50) IU/L Alkaline Phosphatase 123 (38-126) U/L Total Creatine Kinase 97 (55-170) U/L Troponin I < 0.012 (0.01-0.034) ng/mL NT-Pro-B Natriuret Pep 149 H (<125) pg/mL Total Protein 8.2 (6.3-8.2) g/dL Albumin 4.2 (3.5-5.0) g/dL Globulin 4.0 (1.7-4.1) g/dL Albumin/Globulin Ratio 1.1 (1.0-2.8) Lipase 103 (23-300) U/L Imaging Data Chest x-ray: Radiologist's Impression: Jose Francisco Akers??69??M??1955 ? Allergy/Adv: No Known Drug Allergies Close Chest X-Ray (Signed) Thais Hernándeze - 10/11/24 Vascular Ultrasound (Signed) Call,Allen - 09/26/24 Abdomen Ultrasound (Signed) Call, - 09/26/24 Chest CTA (Signed) Sloane Rocha - 09/24/24 Chest X-Ray (Signed) Sloane Rocha - 09/24/24 Abdomen/Pelvis CT (Signed) Elaine Camacho - 06/13/24 Chest X-Ray (Signed) Ammon George - 04/19/24 Chest X-Ray (Signed) Brent Chase - 12/13/23 Renal Ultrasound (Signed) Call,Allen - 12/01/23 Modified Barium Swallow (Signed) Michael Jones - 11/02/23 Renal Ultrasound (Signed) Dale Simental - 06/12/23 Renal Ultrasound (Signed) Hamilton Jackman - 06/09/23 Abdomen/Pelvis CT (Signed) Call,Allen - 06/08/23 Telemetry Strips 06/06/23 Telemetry Strips 06/06/23 Abdomen/Pelvis CT (Signed) Cristofer Morales - 06/06/23 Chest X-Ray (Signed) Cristofer Morales - 06/06/23 Chest X-Ray (Signed) Derrick Jim - 03/17/23 Chest/Abdomen/Pelvis CT (Signed) Hamilton Jackman - 12/15/22 Abdomen/Pelvis CT (Signed) Dale Murphy - 06/20/22 Chest X-Ray (Signed) Dale Murphy - 06/20/22 DI Result CC 06/13/22 DI Result CC 06/13/22 Abdomen/Pelvis CT (Signed) Call,Allen - 01/10/22 Abdomen Ultrasound (Signed) Abdi Bhatia - 01/10/22 Echocardiogram Ultrasound (Signed) Kalin Grimes - 09/26/20 Abdomen X-Ray (Signed) Ania Almeida - 03/12/20 Launch?Image [address] [id number] XRay Report Signed Patient: Jose Francisco Akers MR#: [id number] : 1955 Acct:[id number] Age/Sex: 69 / M Date of Service: 10/11/24 Loc: ED Accession Number: [id number] Procedure: XR chest 1V Ordering Provider: Aretha Snell D.O. PROCEDURE: XR CHEST 1V INDICATIONS: fall, sob TECHNIQUE: One view of the chest was acquired. COMPARISON: [facility], CR, XR CHEST 2V, 09/24/2024, 14:50. FINDINGS: Surgical changes and devices: None. Lungs and pleura: Low lung volumes, but otherwise lungs are clear. No pleural effusions or pneumothorax. Mediastinum: Mediastinal contours appear normal. Heart size is normal. Bones and chest wall: No suspicious bony lesions. Overlying soft tissues appear unremarkable. IMPRESSION: Low lung volumes, but otherwise lungs are clear. Approved by: [place] Hernández M.D.,Ph.D. on 10/11/2024 at 2:03 ECG Data Attestation: I personally reviewed and interpreted this ECG as follows: Prior ECG tracings: available for review Interpretation: Right bundle-branch block, rate of 110 QRS of 154 QTC is 30 left anterior fascicular block. Patient has prior on 04/19/2024. [facility] Narrative Medical decision making narrative: 69-year-old male presents for ground level fall. Patient was noted to be hypoxic he did spend some time on the ground and states that he was attempting to get himself up off the floor until he finally called for assistance. Patient had a white count of 12.5 hemoglobin 12.5 consistent priors platelets are 162. Sodium is 136 potassium 3.8 chloride 100 CO2 is 18 with a BUN of 13 creatinine of 1.54, glucose of 171 LFTs are negative troponins less than 0.012 with a BNP of 149. EKG shows right bundle-branch with left anterior fascicular block appears similar to prior. Chest x-ray shows low lung volumes but otherwise lungs are clear. Patient states he has not had any new changes. He states there was discussion about home O2 but he did not qualify. He has not been persistently hypoxic in the department and tolerated hypoxia with ambulation. He has been tachycardic he states his normal is about 115 which is consistent while he has been at rest. Heart rate does increase with ambulation. He had extensive workup here in the hospital 14 days ago which was negative CT angio did not show major changes on echo, there maybe a component of body habitus to his hypoxia as well. Patient would like to return home reviewed his findings from today. Feels comfortable returning home at this time. Discharge Plan Departure Patient Disposition: Home Clinical Impression: Fall Activity Restrictions/Additional Instructions: Please follow up for recheck. I would recommend that you continue to monitor your oxygen levels at home. Please return for new chest pain, shortness of breath, lightheadedness or passing out, new swelling of your extremities, weakness, persistent vomiting or any other new or concerning changes. Prescriptions: No Action omeprazole 40 mg capsule,delayed release(DR/EC) 40 mg PO DAILY Qty: 90 3RF potassium chloride 10 mEq tablet extended release 10 meq PO DAILY Qty: 90 3RF methenamine hippurate 1 gram tablet 1 g PO BID Qty: 180 3RF albuterol sulfate 90 mcg/actuation HFA aerosol inhaler 2 puff inhalation Q6H PRN (Reason: shortness of breath or wheezing) Qty: 8.5 6RF (DME) Microchamber Spacer See Rx Instructions .Route Qty: 1 0RF Rx Instructions: As directed meloxicam 7.5 mg tablet 7.5 mg PO DAILY Qty: 90 3RF liraglutide 0.6 mg/0.1 mL (18 mg/3 mL) pen injector See Rx Instructions SUBCUT .COMPLEX Qty: 6 0RF Rx Instructions: inject 0.6mg subcutaneously once daily x 7 days; then 1.2mg daily, not to exceed 1.8mg/day SUBCUT Ensure Original Liquid 1 ea PO QID Qty: 31823 12RF ropinirole 2 mg tablet 2 mg PO BEDTIME Rx Instructions: 2-3 hrs before bedtime. trazodone 50 mg tablet 50 mg PO BEDTIME Rx Instructions: 2-3 hrs before bed ferrous sulfate 325 mg (65 mg iron) tablet 325 mg PO DAILY duloxetine 30 mg capsule,delayed release(DR/EC) 30 mg PO DAILY Qty: 90 3RF furosemide 20 mg tablet 20 - 40 mg PO BID Qty: 360 1RF Rx Instructions: 40mg in am, 20mg in pm oxycodone 5 mg tablet 5 mg PO Q8H PRN (Reason: pain (scale score 7-10)) Qty: 7 0RF Referrals: Vince Goldstein MD [Primary Care Provider] - Stand Alone Forms: Patient Portal/API/Survey
[2024-10-11 01:04] LABS: NT-proBNP (BNP-Adult 18+) 149 pg/mL (<125); Troponin I < 0.012 ng/mL (0.01-0.034)
--- NOTE | 2024-10-11 03:10 | PC.NURSE ---
Ambulated Pt with pulse ox, O2 at 94% pulse 144
== END 2024-10-11 06:36 | disposition home or self-care (01) ==
PROVIDERS: Emergency Provider Emergency Medicine; PCP Internal Medicine
DX: R09.02 Hypoxemia (principal); G47.33 Obstructive sleep apnea (adult) (pediatric); E66.01 Morbid (severe) obesity due to excess calories; J98.4 Other disorders of lung; W07.XXXA Fall from chair, initial encounter
CPT/HCPCS: 71045; 80053; 82550; 83690; 83880; 84484; 85025; 93005; 99281; 99284

== ENCOUNTER 2024-11-06 05:13 | Emergency (ER) | payer MEDICARE, MEDICAID, SELFPAY ==
[2024-09-24 21:01] VITALS: BMI 57.7
[2024-11-06 05:18] VITALS: BMI 58.3
[2024-11-06 05:25] VITALS: BP 159/80; PULSE 120; RESP 24; TEMP 36.6; O2SAT 96
--- NOTE | 2024-11-06 05:27 | PC.NURSE ---
Catheter stabilization device noted to be turned causing catheter to twist and not be able to drain. Catheter straightened and now draining without difficulty. Pt feeling relief.
--- NOTE | 2024-11-06 05:30 | ED_ITS ---
HPI - Male Genitourinary General Chief complaint: Urogenital-Male Stated complaint: Clogged Montoya Time Seen by Provider: 11/06/24 05:19 Source: patient and EMS Mode of arrival: EMS History of Present Illness HPI Narrative: 69-year-old male with history of obesity, prior prostate cancer surgery, subsequent urinary retention due to scar tissue/stricture, unable to have trans urethral catheter, had suprapubic catheter that later failed, more recently through local urologist Dr. More has weekly transurethral catheters placed, anticipating follow up at [facility] for re-attempt at suprapubic catheter placement. His existing catheter did not seem to be flowing for the last 2-3 hours, concerned it might be clogged, as has happened in the past. No fevers or chills. No flank pain. No nausea or vomiting. Related Data Home Medications Medication Instructions Recorded Confirmed ropinirole 2 mg tablet 2 mg PO BEDTIME 06/26/20 11/02/24 trazodone 50 mg tablet 50 mg PO BEDTIME 06/26/20 11/02/24 ferrous sulfate 325 mg (65 mg 325 mg PO DAILY 09/25/22 11/02/24 iron) tablet citric ac 1980.6 mg-glucono 59.4 30 ml irrigation TID 11/02/24 11/02/24 mg-mag carb 980.4 mg/30 mL irrig.soln (Renacidin) Previous Rx's Medication Instructions Recorded duloxetine 30 mg capsule,delayed 30 mg PO DAILY #90 caps 12/18/23 release omeprazole 40 mg capsule,delayed 40 mg PO DAILY #90 caps 01/19/24 release potassium chloride 10 mEq 10 meq PO DAILY #90 tabs 05/13/24 tablet,extended release methenamine hippurate 1 gram tablet 1 g PO BID #180 tabs 07/01/24 oxycodone 5 mg tablet 5 mg PO Q8H PRN pain (scale score 09/07/24 7-10) #7 tabs albuterol sulfate 90 mcg/actuation 2 puff inhalation Q6H PRN 09/12/24 aerosol inhaler shortness of breath or wheezing #8.5 grams inhalational spacing device #1 ea 09/12/24 (Microchamber spacer) furosemide 20 mg tablet 20 - 40 mg (1 - 2 x 20 mg) PO BID 09/27/24 #360 tabs food supplemt, lactose-reduced 1 ea PO QID #28,440 mL 10/04/24 (Ensure Original oral liquid) semaglutide 0.25 mg or 0.5 mg (2 See Rx Instructions SUBCUT QWEEK 10/14/24 mg/3 mL) subcutaneous pen injector #6 mL (Ozempic) meloxicam 7.5 mg tablet 7.5 mg PO DAILY #90 tabs 10/26/24 citric ac 1980.6 mg-glucono 59.4 30 ml irrigation TID #900 mL 11/02/24 mg-mag carb 980.4 mg/30 mL irrig.soln (Renacidin) Allergies Allergy/AdvReac Type Severity Reaction Status Date / Time No Known Drug Allergies Allergy Verified 11/02/24 13:58 Patient History Medical History Oxygen dependent BMI 50.0-59.9, adult (08/2024) Sepsis (06/2023) Suprapubic catheter dysfunction Sinus tachycardia Chronic renal failure, stage 3a Acquired buried penis Urinary retention Urinary incontinence Iron deficiency Polyneuropathy, unspecified Anemia of chronic disease Mixed hyperlipidemia Eczema (~1996) Restless leg syndrome (~2013) Tinnitus (~1972) Recurrent sinusitis (~2007) Frequent UTI (~2017) Pancreatitis (~1995) Obstructive sleep apnea of adult (~2013) History of kidney stones Phimosis Lower urinary tract symptoms History of prostate cancer (~2016) Chronic venous insufficiency (04/10/16) Restrictive lung disease (08/16/15) Primary insomnia (08/16/15) Morbid obesity (08/16/15) 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) Surgical History History of transurethral resection of bladder tumor (TURBT) (2023) Chronic suprapubic catheter Anesthesia History of common bile duct surgery (~1997) Status post knee surgery (~1993) Family History Brother Prostate cancer Liver cancer Father Parkinson disease Grandfather Hepatitis Grandfather History of heart disease Grandmother Cancer Social History household members: none Smoking Status: Never smoker alcohol intake: current Smoking Status: Never smoker alcohol intake frequency: 0-2 drinks per day Alcohol type: beer Exam Narrative Exam Narrative: GENERAL: Well-developed patient, in mild distress. HEAD: Atraumatic. Normocephalic. EYES: Pupils equal round and reactive. Extraocular motions intact. No scleral icterus. No injection or drainage. ENT: No obvious facial trauma. Airway patent. NECK: Trachea midline. Non tender CARDIOVASCULAR: Fast rate regular rhythm, without murmurs, gallops, or rubs. RESPIRATORY: Clear to auscultation. Breath sounds equal bilaterally. No wheezes, rales, or rhonchi. GASTROINTESTINAL: Morbidly obese, very large pannus, abdomen soft, non-tender, nondistended. : Transfer urethral catheter in place, securing device was torquing the catheter tubing, alternate securing device placed on his thigh, this seemed to immediately allow flow of nonbloody urine, and relief of his pain symptoms. EXTREMITIES: No edema or joint tenderness. BACK: Nontender without deformity or crepitance. No flank tenderness. NEURO: AOx3. Motor functions grossly nonfocal SKIN: No rash or erythema of visible areas Initial Vital Signs Initial Vital Signs: Vital Signs Temperature 97.9 F 11/06/24 05:25 Pulse Rate 120 H 11/06/24 05:25 Respiratory Rate 24 11/06/24 05:25 Blood Pressure 159/80 H 11/06/24 05:25 Pulse Oximetry 96 11/06/24 05:25 Oxygen Delivery Method Nasal Cannula 11/06/24 05:25 Oxygen Flow Rate 3 11/06/24 05:25 Course Vital Signs Vital signs: Vital Signs - 8 hr 11/06/24 05:25 Temperature 97.9 F Pulse Rate 120 H Respiratory Rate 24 Blood Pressure 159/80 H Pulse Oximetry 96 Oxygen Delivery Method Nasal Cannula Oxygen Flow Rate 3 MDM - Male Genitourinary MDM Narrative Medical decision making narrative: Morbid obesity with history of prior transurethral then suprapubic now transurethral catheter, awaiting re-attempt [facility] suprapubic catheter placement, weakly catheter changes through local urology office Dr. More, now with no flow in urine bag, afebrile, sirs screen negative. Catheter securing device seemed to torque/obstruct the urinary catheter, not visible to patient due to his large pannus. An alternate securing device placed on his left leg, with immediate relief of obstruction on un-kinking of the urinary catheter tubing, good immediate flow of nonbloody urine, relief of his lower abdominal discomfort suprapubic area discomfort, one liter of new urine into collection bag. Follow up with Urology as planned. Discharged home. Discharge Plan Departure Patient Disposition: Home Clinical Impression: Urinary catheter dysfunction Instructions: DI for Urinary Retention in Men Activity Restrictions/Additional Instructions: History of morbid obesity, prior prostate cancer, prior transurethral catheter for urinary retention, prior failed suprapubic catheter placement, more recently having weekly trans urethral catheters placed in anticipation of future suprapubic catheter surgery [facility]. No flow in urine collection bag today, increasing discomfort. On examination the catheter securing device seemed to be kinking of the catheter tubing. A different catheter securing site was placed in the left thigh, and a kinking the catheter, causing immediate release nonbloody urine, and improved symptoms. Sinus tachycardia fast heart rate noted, though apparently you have a history of fast heart rate 110-115, which seems to be her baseline. No further workup for now. Follow up with your urologist as planned. Return earlier to this/nearest emergency department for any change worsening symptoms or any concerns prior Prescriptions: No Action omeprazole 40 mg capsule,delayed release(DR/EC) 40 mg PO DAILY Qty: 90 3RF potassium chloride 10 mEq tablet extended release 10 meq PO DAILY Qty: 90 3RF methenamine hippurate 1 gram tablet 1 g PO BID Qty: 180 3RF albuterol sulfate 90 mcg/actuation HFA aerosol inhaler 2 puff inhalation Q6H PRN (Reason: shortness of breath or wheezing) Qty: 8.5 6RF (DME) Microchamber Spacer See Rx Instructions .Route Qty: 1 0RF Rx Instructions: As directed Ozempic 0.25 mg or 0.5 mg (2 mg/3 mL) pen injector See Rx Instructions SUBCUT QWEEK Qty: 6 0RF Rx Instructions: 0.25mg once weekly for 4 weeks, then increase to 0.5mg weekly for 4 weeks, plan for further increase after that meloxicam 7.5 mg tablet 7.5 mg PO DAILY Qty: 90 3RF Ensure Original Liquid 1 ea PO QID Qty: 26171 12RF ropinirole 2 mg tablet 2 mg PO BEDTIME Rx Instructions: 2-3 hrs before bedtime. trazodone 50 mg tablet 50 mg PO BEDTIME Rx Instructions: 2-3 hrs before bed ferrous sulfate 325 mg (65 mg iron) tablet 325 mg PO DAILY duloxetine 30 mg capsule,delayed release(DR/EC) 30 mg PO DAILY Qty: 90 3RF furosemide 20 mg tablet 20 - 40 mg PO BID Qty: 360 1RF Rx Instructions: 40mg in am, 20mg in pm oxycodone 5 mg tablet 5 mg PO Q8H PRN (Reason: pain (scale score 7-10)) Qty: 7 0RF Renacidin 1,980.6 mg-59.4 mg-980.4mg/30mL solution 30 ml irrigation TID Renacidin 1,980.6 mg-59.4 mg-980.4mg/30mL solution 30 ml irrigation TID Qty: 900 3RF Referrals: Jacob More DO [Physician] - Vince Goldstein MD [Primary Care Provider] - Stand Alone Forms: Patient Portal/API/Survey
== END 2024-11-06 06:20 | disposition home or self-care (01) ==
PROVIDERS: Emergency Provider Emergency Medicine; PCP Internal Medicine
DX: T83.9XXA Unspecified complication of genitourinary prosthetic device, implant and graft, initial encounter (principal); R33.8 Other retention of urine; E66.9 Obesity, unspecified; Z68.43 Body mass index [BMI] 50.0-59.9, adult; E78.5 Hyperlipidemia, unspecified; Z87.442 Personal history of urinary calculi; J44.9 Chronic obstructive pulmonary disease, unspecified
CPT/HCPCS: 99284

== ENCOUNTER → 2024-12-05 11:13 | Outpatient (CLI) | payer MEDICARE, MEDICAID, SELFPAY ==
[2024-09-24 21:01] VITALS: BMI 57.7
[2024-12-05 12:48] LABS: Prostate Specific Antigen < 0.064 ng/mL (0.10-4.00)
== END ==
PROVIDERS: PCP Internal Medicine; Referring Provider Urology; Visit Provider Urology
DX: C61 Malignant neoplasm of prostate (principal)
CPT/HCPCS: 36415; 84153

== ENCOUNTER → 2025-01-04 13:53 | Outpatient (CLI) | payer MEDICARE, MEDICAID, SELFPAY ==
[2024-12-08 13:40] VITALS: BMI 57.7
== END ==
PROVIDERS: PCP Internal Medicine; Visit Provider Urology
DX: N39.0 Urinary tract infection, site not specified (principal); Z97.8 Presence of other specified devices
CPT/HCPCS: 51702; 87077; 87086; 99213

== ENCOUNTER 2025-01-22 10:13 | Inpatient (IN) | payer MEDICARE, MEDICAID, SELFPAY ==
[2025-01-13 14:18] VITALS: BMI 57.7
[2025-01-22] VITALS (39 sets, daily range): BP systolic 116–145; BP diastolic 62–80; PULSE 101–122; RESP 10–38; TEMP 36.1–37.3; O2SAT 91–99; BMI 58.3; BMI 56.6
--- NOTE | 2025-01-22 10:25 | ED.SOB ---
HPI - SOB/Dyspnea General Chief Complaint: Shortness of Breath/Dyspnea Stated Complaint: SOB History of Present Illness HPI Narrative: 69-year-old gentleman history of obesity prior prostate cancer surgery status post suprapubic catheter placement this past [facility] presents with increasing shortness of breath dyspnea on exertion brought in via EMS given a DuoNeb treatment prior to arrival here. Patient denies chest pain fever or chills leg swelling increased weight gain back pain urinary complaints but he does report a cough nonproductive for the last 5 days. Other than what is stated 14 point review of system is negative Related Data Home Medications Medication Instructions Recorded Confirmed ropinirole 2 mg tablet 2 mg PO BEDTIME 06/26/20 01/13/25 trazodone 50 mg tablet 50 mg PO BEDTIME 06/26/20 01/13/25 ferrous sulfate 325 mg (65 mg 325 mg PO DAILY 09/25/22 01/13/25 iron) tablet citric ac 1980.6 mg-glucono 59.4 30 ml irrigation TID 11/02/24 01/13/25 mg-mag carb 980.4 mg/30 mL irrig.soln (Renacidin) amoxicillin 500 mg-potassium 1 tab PO BID 01/04/25 01/13/25 clavulanate 125 mg tablet (Augmentin) Previous Rx's Medication Instructions Recorded omeprazole 40 mg capsule,delayed 40 mg PO DAILY #90 caps 01/19/24 release potassium chloride 10 mEq 10 meq PO DAILY #90 tabs 05/13/24 tablet,extended release methenamine hippurate 1 gram tablet 1 g PO BID #180 tabs 07/01/24 oxycodone 5 mg tablet 5 mg PO Q8H PRN pain (scale score 09/07/24 7-10) #7 tabs albuterol sulfate 90 mcg/actuation 2 puff inhalation Q6H PRN 09/12/24 aerosol inhaler shortness of breath or wheezing #8.5 grams inhalational spacing device #1 ea 09/12/24 (Microchamber spacer) furosemide 20 mg tablet 20 - 40 mg (1 - 2 x 20 mg) PO BID 09/27/24 #360 tabs food supplemt, lactose-reduced 1 ea PO QID #28,440 mL 10/04/24 (Ensure Original oral liquid) semaglutide 0.25 mg or 0.5 mg (2 See Rx Instructions SUBCUT QWEEK 10/14/24 mg/3 mL) subcutaneous pen injector #6 mL (Ozempic) meloxicam 7.5 mg tablet 7.5 mg PO DAILY #90 tabs 10/26/24 citric ac 1980.6 mg-glucono 59.4 30 ml irrigation TID #900 mL 11/02/24 mg-mag carb 980.4 mg/30 mL irrig.soln (Renacidin) Disabled Parking Permit #1 ea 12/01/24 cefuroxime axetil 500 mg tablet 500 mg PO BID 2 weeks #28 tabs 12/08/24 fluticasone propionate 50 2 spray intranasal BEDTIME #16 12/08/24 mcg/actuation nasal grams spray,suspension duloxetine 30 mg capsule,delayed 30 mg PO DAILY #90 caps 12/22/24 release cefdinir 300 mg capsule 300 mg PO BID #14 caps 01/06/25 Allergies Allergy/AdvReac Type Severity Reaction Status Date / Time No Known Drug Allergies Allergy Verified 01/13/25 13:52 Review of Systems Review of Systems ROS Unobtainable: All systems reviewed & are unremarkable except as noted in HPI and below Patient History Medical History Oxygen dependent BMI 50.0-59.9, adult (08/2024) Sepsis (06/2023) Suprapubic catheter dysfunction Sinus tachycardia Chronic renal failure, stage 3a Acquired buried penis Urinary retention Urinary incontinence Iron deficiency Polyneuropathy, unspecified Anemia of chronic disease Mixed hyperlipidemia Eczema (~1996) Restless leg syndrome (~2013) Tinnitus (~1972) Recurrent sinusitis (~2007) Frequent UTI (~2017) Pancreatitis (~1995) Obstructive sleep apnea of adult (~2013) History of kidney stones Phimosis Lower urinary tract symptoms History of prostate cancer (~2016) Chronic venous insufficiency (04/10/16) Restrictive lung disease (08/16/15) Primary insomnia (08/16/15) Morbid obesity (08/16/15) 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) Surgical History History of transurethral resection of bladder tumor (TURBT) (2023) Chronic suprapubic catheter Anesthesia History of common bile duct surgery (~1997) Status post knee surgery (~1993) Family History Brother Prostate cancer Liver cancer Father Parkinson disease Grandfather Hepatitis Grandfather History of heart disease Grandmother Cancer Social History household members: none Smoking Status: Never smoker alcohol intake: current alcohol intake frequency: 0-2 drinks per day Alcohol type: beer Exam Narrative Exam Narrative: GENERAL: [69] year old patient appears stated age. Morbidly obese in moderate distress speaking in full sentence but mouth breathing. HEAD: Atraumatic. Normocephalic. EYES: Pupils equal round and reactive. Extraocular motions intact. No scleral icterus. No injection or drainage. ENT: Nose without bleeding, purulent drainage. Throat without erythema, tonsillar hypertrophy or exudate. Airway patent. NECK: Trachea midline. Non tender CARDIOVASCULAR: Regular rate and rhythm without murmurs, gallops, or rubs. RESPIRATORY: Decreased breath sound b/l GASTROINTESTINAL: Abdomen soft, non-tender, nondistended. EXTREMITIES: No edema or joint tenderness. BACK: Nontender without deformity or crepitance. No flank tenderness. NEURO: AOx3. SKIN: No rash or erythema of visible areas Initial Vital Signs Initial Vital Signs: Vital Signs Temperature 99.1 F 01/22/25 10:16 Pulse Rate 116 H 01/22/25 10:16 Respiratory Rate 33 H 01/22/25 10:16 Blood Pressure 144/68 H 01/22/25 10:16 Pulse Oximetry 91 01/22/25 10:16 Oxygen Delivery Method Nasal Cannula 01/22/25 10:16 Oxygen Flow Rate 3 01/22/25 10:16 Course Orders Ordered: ED Orders 01/22/25 10:28 Respiratory Panel (Film Array) Stat 01/22/25 10:31 XR chest 1V Stat EKG-12 Lead Stat 01/22/25 10:32 Venous Blood Gas STAT 01/22/25 10:33 CT angio chest PE protocol Stat 01/22/25 10:38 Complete Blood Count AUTO DIFF Stat Comprehensive Metabolic Panel Stat Lipase Stat Magnesium Stat NT-proBNP (BNP-Adult 18+) Stat PTT Partial Thromboplastin Jaylon Stat Procalcitonin Stat Prothrombin Time INR Stat Troponin & CK Cardiac Panel Stat 01/22/25 10:40 RT Consult Eval and Treat NOW 01/22/25 10:55 Venous Blood Gas Routine 01/22/25 11:20 Blood Culture Stat 01/22/25 12:16 BiPAP Ventilatory Support RT PROTOCOL 01/22/25 12:40 Trop I [Troponin I] Stat Albuterol (Albuterol 2.5 Mg/3 Ml Neb (Adult)) 2.5 mg INH [id number] PRN PRN Reason: Shortness Of Breath Last Admin: 01/22/25 11:48 Dose: 2.5 mg Documented By: ANEUDY Albuterol/Ipratropium (Albuterol/Ipratropium 3 Ml Ampul) 3 ml INH Q1H PRN PRN Reason: Shortness Of Breath Discontinued Medications Aspirin (Aspirin 81 Mg Chew Tab) 324 mg PO NOW ONE Stop: 01/22/25 10:32 Furosemide (Furosemide 40 Mg/4 Ml Vial) 40 mg IV NOW ONE Stop: 01/22/25 12:00 Last Admin: 01/22/25 12:07 Dose: 40 mg Documented By: CARO Vital Signs Vital signs: Vital Signs - 8 hr 01/22/25 10:16 01/22/25 10:25 01/22/25 10:30 Temperature 99.1 F Pulse Rate 116 H 117 H 117 H Respiratory Rate 33 H 32 H 29 H Blood Pressure 144/68 H Pulse Oximetry 91 92 93 Oxygen Delivery Method Nasal Cannula Oxygen Flow Rate 3 Fraction of Inspired Oxygen 01/22/25 11:01 01/22/25 11:21 01/22/25 11:21 Temperature Pulse Rate 117 H 118 H Respiratory Rate 34 H 29 H Blood Pressure 139/79 Pulse Oximetry 91 93 Oxygen Delivery Method Nasal Cannula Nasal Cannula Oxygen Flow Rate 4 4 Fraction of Inspired Oxygen 01/22/25 12:16 Temperature Pulse Rate Respiratory Rate Blood Pressure 130/72 Pulse Oximetry Oxygen Delivery Method Oxygen Flow Rate Fraction of Inspired Oxygen 40 MDM - SOB/Dyspnea Lab Data 01/22/25 10:38 01/22/25 10:38 Labs: Lab Results 01/22/25 01/22/25 01/22/25 Range/Units 10:28 10:38 10:55 WBC 15.7 H (4.5-11.0) X10^3/uL RBC 4.09 L (4.5-5.9) X10^6/uL Hgb 12.9 L (13.5-17.5) g/dL Hct 40.9 L (41-53) % MCV 100.0 (80-100) fL MCH 31.6 (26-34) PG MCHC 31.6 (30-36) % RDW 19.2 H (11.6-14.8) % Plt Count 120 L (150-400) X10^3/uL Neut % (Auto) 82.1 H (50-75) % Lymph % (Auto) 10.5 L (25-40) % [place] % (Auto) 7.2 (3-14) % Eos % (Auto) 0.0 L (2-4) % Baso % (Auto) 0.2 (0-2) % Neut # (Auto) 70121 H (5371-8990) /uL Lymph # (Auto) 1700 (8874-3141) /uL [place] # (Auto) 1100 H (0-900) /uL Eos # (Auto) 0 (0-450) /uL Baso # (Auto) 0 (0-100) /uL PT 19.3 H (9.4-12.5) SECONDS INR 1.7 H (0.9-1.3) APTT 36 (25.1-36.5) SECONDS VBG pH 7.33 (7.33-7.43) VBG pCO2 64.8 H (45-50) mmHg VBG pO2 30 L (35-45) mmHg VBG HCO3 34 H (24-28) mmol/L VBG Total CO2 33 H (24-29) mmol/L VBG O2 Saturation 51 L (70-75) % VBG Base Excess 5.6 H (0-4) mmol/L FiO2 % 32.0 % % Sodium 136 L (137-145) mmol/L Potassium 4.4 (3.4-5.1) mmol/L Chloride 96 L (98-107) mmol/L Carbon Dioxide 31 (22-32) mmol/L BUN 26 H (9-20) mg/dL Creatinine 2.90 H (0.66-1.25) mg/dL Estimated GFR 23 L (>60) mL/min BUN/Creatinine Ratio 9.0 (6-22) Glucose 162 H (80-110) mg/dL Calcium 8.7 (8.4-10.2) mg/dL Magnesium 2.1 (1.6-2.3) mg/dL Total Bilirubin 2.4 H (0.2-1.3) mg/dL AST 3106 H (17-59) IU/L ALT 1202 H (<50) IU/L Alkaline Phosphatase 131 H (38-126) U/L Total Creatine Kinase 141 (55-170) U/L Troponin I 0.253 H* (0.01-0.034) ng/mL NT-Pro-B Natriuret Pep 03490 H (<125) pg/mL Total Protein 8.3 H (6.3-8.2) g/dL Albumin 4.0 (3.5-5.0) g/dL Globulin 4.3 H (1.7-4.1) g/dL Albumin/Globulin Ratio 0.9 L (1.0-2.8) Lipase 52 (23-300) U/L Procalcitonin 1.05 H (<0.5) ng/mL Chlamy pneumoniae PCR Not detected (Not Detect) Adenovirus (PCR) Not detected (Not Detect) B. pertussis DNA (PCR) Not detected (Not Detect) B.parapertussis DNA PCR Not detected (Not Detecte) Coronavirus OC43 (PCR) Not detected (Not Detect) Coronavirus HKU1 (PCR) Not detected (Not Detect) Coronavirus 229E (PCR) Not detected (Not Detect) SARS-CoV-2 (PCR) Not detected (Not Detecte) Coronavirus NL63 (PCR) Not detected (Not Detect) Human Metapneumovir PCR Not detected (Not Detect) Influ A (H1N1 [place]) PCR Detected H (Not Detect) Influenza Type B (PCR) Not detected (Not Detect) M. pneumoniae (PCR) Not detected (Not Detect) Parainfluenza 1 (PCR) Not detected (Not Detect) Parainfluenza 2 (PCR) Not detected (Not Detect) Parainfluenza 3 (PCR) Not detected (Not Detect) Parainfluenza 4 (PCR) Not detected (Not Detect) RSV (PCR) Not detected (Not Detect) Entero/Rhino (PCR) Not detected (Not Detect) Imaging Data Chest x-ray: Radiologist's Impression: [address] [address] XRay Report Signed Patient: Jose Francisco Akers MR#: [id number] : 1955 Acct:[id number] Age/Sex: 69 / M Date of Service: 01/22/25 Loc: ED Accession Number: [id number] Procedure: XR chest 1V Ordering Provider: Vince Isaacs D.O. PROCEDURE: XR CHEST 1V INDICATIONS: chest pain TECHNIQUE: One view of the chest was acquired. COMPARISON: [facility], CR, XR CHEST 2V, 09/24/2024, 14:50. [facility], CR, XR CHEST 1V, 10/11/2024, 0:55. FINDINGS: Surgical changes and devices: None. Lungs and pleura: An incomplete inspiratory result is noted, causing a crowded appearance to the lung markings. No focal infiltrates are seen. No pneumothorax or significant pleural effusions are seen. Mediastinum: Mediastinal contours appear normal. Heart size is normal. Bones and chest wall: No suspicious bony lesions. Overlying soft tissues appear unremarkable. IMPRESSION: Low lung volumes, without an acute abnormality seen by plain film. Similar to the prior. Dictated by: Cristofer Morales M.D. on 01/22/2025 at 9:55 Approved by: Nubia Singh CT scan - chest: Radiologist's Impression: [address] [address] [address] Scan Report Signed Patient: Jose Francisco Akers MR#: [id number] : 1955 Acct:[id number] Age/Sex: 69 / M Date of Service: 01/22/25 Loc: ED Accession Number: [id number] Procedure: CT angio chest PE protocol Ordering Provider: Vince Isaacs D.O. PROCEDURE: CT ANGIO CHEST PE PROTOCOL INDICATIONS: Short of breath TECHNIQUE: After the administration of intravenous contrast, 2 mm thick sections acquired from the pulmonary apices to the posterior costophrenic angles. 3-dimensional maximum intensity projection (MIP) coronal and sagittal reformats were then acquired through the thorax. For radiation dose reduction, the following was used: automated exposure control, adjustment of mA and/or kV according to patient size. COMPARISON: [facility], CT, CT KIDNEY URETER BLADDER (KUB), 06/13/2024, 17:26. [facility], CR, XR CHEST 1V, 01/22/2025, 10:35. [facility], CT, CT ANGIO CHEST PE, 06/25/2023, 23:21. [facility], CT, CT ANGIO CHEST PE PROTOCOL, 09/24/2024, 17:47. FINDINGS: Image quality: This study is limited by body habitus. Limited by bolus timing. Pulmonary arteries: The bolus of the contrast injection is suboptimal. The main pulmonary artery measures 157 Hounsfield units. Pulmonary artery densities are greater than 250 Hounsfield units are considered to be ideal for evaluation of pulmonary embolism. However, no large or central pulmonary emboli are seen on these images. No pulmonary emboli are seen more distally, although sensitivity for detection of such is limited on this study. Lower Neck: No enlarged lymph nodes. Thyroid: No thyroid nodules which require sonographic follow up, per consensus guidelines. Axillae: No enlarged lymph nodes. Chest Wall: Unremarkable. Bones: Age-appropriate bony degenerative changes are seen. Multiple areas of bridging endplate osteophytes can be seen. Lungs and Pleura: Scattered areas of poorly defined opacity can be seen, primarily dependently, which are attributed to atelectasis. Minimal areas of ground-glass opacity are also seen. No consolidated infiltrates can be seen. No pneumothorax or pleural effusions are seen. Low lung volumes are noted. This causes a crowded appearance to the lung markings and limits evaluation. Heart: Heart size is normal. No pericardial effusion. There is moderate coronary artery calcification. Thoracic Vessels: No aortic aneurysm. Mediastinum and Jyothi: No enlarged lymph nodes. Esophagus: No wall thickening. No hiatal hernia. Upper Abdomen: An enlarged, fatty infiltrated liver is seen. The spleen is enlarged, measuring 17.6 cm AP. The visualized portions of the upper abdominal structures are otherwise unremarkable for imaging technique. IMPRESSION: No large or central pulmonary embolism. Likely areas of subpleural atelectasis. Additional mild ground-glass opacity can be seen, which may be related to pulmonary edema, versus artifact. ECG Data Attestation: I personally reviewed and interpreted this ECG as follows: Interpretation: Sinus Tach RBBB LAFB Bifasicular block HI 174 QRS 152 QT 336 Unchanged from 10/11/24 EKG#2 Tachychardia RBBB Bifasciular block QRS 148 QT 370 Unchanged from 01/22/25 MDM Narrative Medical decision making narrative: All lab work EKG chest x-ray CTA all reviewed patient given Lasix 40 mg IV x1 Rocephin 1 g IV and Tamiflu here. Pt currently on 2L 02 NC with 02 sat 94% and then with VBG and all other tests back he is on BiPAP. Case discussed with Dr. Quiñonez who has graciously accepted patient for inpatient admission. Differential diagnosis includes flu, chf, rsv, covid, pneumonia, PE, sepsis, UTI, electrolyte derangement. Vital signs, nurse triage note, medication list, all previous ER visits and all imaging studies all reviewed. Discharge Plan Departure Patient Disposition: Admitted As Inpatient Clinical Impression: Influenza A, Hypoxia, Acute kidney injury superimposed on chronic kidney disease CHF (congestive heart failure) Qualifiers: Heart failure type: systolic Heart failure chronicity: acute Qualified Code(s): I50.21 - Acute systolic (congestive) heart failure
--- NOTE | 2025-01-22 10:31 | DI.RAD.S_ITS ---
PROCEDURE: XR CHEST 1V INDICATIONS: chest pain TECHNIQUE: One view of the chest was acquired. COMPARISON: [facility], CR, XR CHEST 2V, 09/24/2024, 14:50. [facility], CR, XR CHEST 1V, 10/11/2024, 0:55. FINDINGS: Surgical changes and devices: None. Lungs and pleura: An incomplete inspiratory result is noted, causing a crowded appearance to the lung markings. No focal infiltrates are seen. No pneumothorax or significant pleural effusions are seen. Mediastinum: Mediastinal contours appear normal. Heart size is normal. Bones and chest wall: No suspicious bony lesions. Overlying soft tissues appear unremarkable. IMPRESSION: Low lung volumes, without an acute abnormality seen by plain film. Similar to the prior. Dictated by: Cristofer Morales M.D. on 01/22/2025 at 9:55 Approved by: Cristofer Morales M.D. on 01/22/2025 at 9:56
--- NOTE | 2025-01-22 10:33 | DI.CT.S_ITS ---
PROCEDURE: CT ANGIO CHEST PE PROTOCOL INDICATIONS: Short of breath TECHNIQUE: After the administration of intravenous contrast, 2 mm thick sections acquired from the pulmonary apices to the posterior costophrenic angles. 3-dimensional maximum intensity projection (MIP) coronal and sagittal reformats were then acquired through the thorax. For radiation dose reduction, the following was used: automated exposure control, adjustment of mA and/or kV according to patient size. COMPARISON: [facility], CT, CT KIDNEY URETER BLADDER (KUB), 06/13/2024, 17:26. [facility], CR, XR CHEST 1V, 01/22/2025, 10:35. [facility], CT, CT ANGIO CHEST PE, 06/25/2023, 23:21. [facility], CT, CT ANGIO CHEST PE PROTOCOL, 09/24/2024, 17:47. FINDINGS: Image quality: This study is limited by body habitus. Limited by bolus timing. Pulmonary arteries: The bolus of the contrast injection is suboptimal. The main pulmonary artery measures 157 Hounsfield units. Pulmonary artery densities are greater than 250 Hounsfield units are considered to be ideal for evaluation of pulmonary embolism. However, no large or central pulmonary emboli are seen on these images. No pulmonary emboli are seen more distally, although sensitivity for detection of such is limited on this study. Lower Neck: No enlarged lymph nodes. Thyroid: No thyroid nodules which require sonographic follow up, per consensus guidelines. Axillae: No enlarged lymph nodes. Chest Wall: Unremarkable. Bones: Age-appropriate bony degenerative changes are seen. Multiple areas of bridging endplate osteophytes can be seen. Lungs and Pleura: Scattered areas of poorly defined opacity can be seen, primarily dependently, which are attributed to atelectasis. Minimal areas of ground-glass opacity are also seen. No consolidated infiltrates can be seen. No pneumothorax or pleural effusions are seen. Low lung volumes are noted. This causes a crowded appearance to the lung markings and limits evaluation. Heart: Heart size is normal. No pericardial effusion. There is moderate coronary artery calcification. Thoracic Vessels: No aortic aneurysm. Mediastinum and Jyothi: No enlarged lymph nodes. Esophagus: No wall thickening. No hiatal hernia. Upper Abdomen: An enlarged, fatty infiltrated liver is seen. The spleen is enlarged, measuring 17.6 cm AP. The visualized portions of the upper abdominal structures are otherwise unremarkable for imaging technique. IMPRESSION: No large or central pulmonary embolism. Likely areas of subpleural atelectasis. Additional mild ground-glass opacity can be seen, which may be related to pulmonary edema, versus artifact. Additional findings: Moderate coronary artery calcification Enlarged, fatty infiltrated liver. Splenomegaly. Dictated by: Cristofer Morales M.D. on 01/22/2025 at 10:37 Approved by: Cristofer Morales M.D. on 01/22/2025 at 10:41
--- NOTE | 2025-01-22 10:37 | EKG_ITS ---
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
[2025-01-22 10:59] LABS: Base Excess VBG 5.6 mmol/L (0-4); HCO3 VBG 34 mmol/L (24-28); Oxygen Saturation VBG 51 % (70-75); PCO2 VBG 64.8 mmHg (45-50); PO2 VBG 30 mmHg (35-45); Total CO2 VBG 33 mmol/L (24-29); pH VBG 7.33 (7.33-7.43)
[2025-01-22 11:06] LABS: INR 1.7 (0.9-1.3); Prothrombin Time 19.3 SECONDS (9.4-12.5)
[2025-01-22 11:09] LABS: PTT Partial Thromboplastin Tim 36 SECONDS (25.1-36.5)
[2025-01-22 11:10] LABS: Albumin Globulin Ratio 0.9 (1.0-2.8); Alkaline Phosphatase 131 U/L (38-126); Bilirubin Total 2.4 mg/dL (0.2-1.3); Blood Urea Nitrogen 26 mg/dL (9-20); Calcium 8.7 mg/dL (8.4-10.2); Carbon Dioxide 31 mmol/L (22-32); Chloride 96 mmol/L (98-107); Creatine Kinase 141 U/L (55-170); Estimated Glomerular Filt Rate 23 mL/min (>60); Globulin 4.3 g/dL (1.7-4.1); Glucose 162 mg/dL (80-110); Lipase 52 U/L (23-300); Magnesium 2.1 mg/dL (1.6-2.3); Potassium 4.4 mmol/L (3.4-5.1); Sodium 136 mmol/L (137-145); Total Protein 8.3 g/dL (6.3-8.2)
[2025-01-22 11:15] LABS: Add Manual Diff / Slide Review NO; Basophils Absolute Auto 0 /uL (0-100); Basophils Percent Auto 0.2 % (0-2); Eosinophils Absolute Auto 0 /uL (0-450); Hematocrit 40.9 % (41-53); Hemoglobin 12.9 g/dL (13.5-17.5); Lymphocytes Absolute Auto 1700 /uL (1100-4500); Lymphocytes Percent Auto 10.5 % (25-40); Mean Corpuscular HGB Conc 31.6 % (30-36); Mean Corpuscular Hemoglobin 31.6 PG (26-34); Monocytes Absolute Auto 1100 /uL (0-900); Monocytes Percent Auto 7.2 % (3-14); Neutrophils Absolute Auto 12900 /uL (1500-7000); Neutrophils Percent Auto 82.1 % (50-75); Platelet Count 120 X10^3/uL (150-400); Red Blood Cell Count 4.09 X10^6/uL (4.5-5.9); Red Cell Distribution Width 19.2 % (11.6-14.8); White Blood Cell Count 15.7 X10^3/uL (4.5-11.0)
[2025-01-22 11:22] LABS: NT-proBNP (BNP-Adult 18+) 23200 pg/mL (<125)
[2025-01-22 11:28] LABS: Procalcitonin 1.05 ng/mL (<0.5)
[2025-01-22 11:35] LABS: HEMOLYSIS < 15 (0-50)
[2025-01-22] MEDS: ALBUTEROL 2.5 MG/3 ML NEB (ADULT) INH (11:48)
[2025-01-22 11:56] LABS: Alanine Aminotransferase 1202 IU/L (<50); Aspartate Aminotransferase 3106 IU/L (17-59)
[2025-01-22 11:57] LABS: Troponin I 0.253 ng/mL (0.01-0.034)
[2025-01-22] MEDS: FUROSEMIDE 40 MG/4 ML VIAL IV ×2 (12:07→23:37)
[2025-01-22 12:19] LABS: Adenovirus Not Detected (Not Detect); B. parapertussis Not Detected (Not Detecte); Bordetella pertussis Not Detected (Not Detect); Chlamydophila pneumoniae Not Detected (Not Detect); Coronavirus 229E Not Detected (Not Detect); Coronavirus HKU1 Not Detected (Not Detect); Coronavirus NL 63 Not Detected (Not Detect); Coronavirus OC43 Not Detected (Not Detect); Human Metapneumovirus Not Detected (Not Detect); Human Rhinovirus/Enterovirus Not Detected (Not Detect); Influenza A H1-2009 Detected (Not Detect); Influenza B Not Detected (Not Detect); Mycoplasma pneumoniae Not Detected (Not Detect); Parainfluenza Virus 1 Not Detected (Not Detect); Parainfluenza Virus 2 Not Detected (Not Detect); Parainfluenza Virus 3 Not Detected (Not Detect); Parainfluenza Virus 4 Not Detected (Not Detect); Respiratory Syncytial Virus Not Detected (Not Detect); SARS- CoV-2 Not Detected (Not Detecte)
--- NOTE | 2025-01-22 12:43 | EKG_ITS ---
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
[2025-01-22] MEDS: cefTRIAXone 1,000 MG in SODIUM CHLORIDE 0.9% 100 ML 200 MG IV (13:03)
[2025-01-22] MEDS: OSELTAMIVIR 75 MG CAPSULE PO ×2 (13:04→20:24)
[2025-01-22 13:49] LABS: Troponin I 0.302 ng/mL (0.01-0.034)
--- NOTE | 2025-01-22 14:40 | PM.HP.1 ---
History of Present Illness History of Present Illness Date Patient Seen: 01/22/25 Time Patient Seen: 14:40 Date of Onset of Symptoms: 01/20/25 Chief complaint: SOB Narrative: Patient is a 69-year-old male patient of Dr. Goldstein who I am cross covering for who presents with 2 day history of fatigue and shortness of breath. Apparently on Thursday he had a suprapubic catheter placed at [facility] in [place] and was having significant pain. He came home on Thursday night and basically was super fatigued. He basically went to bed and has only woken up 2 or 3 times since that time. Patient states that his as tired. Not sure if he has had a fever. Some muscle aches. Extremely short of breath. Patient woke up this morning with a pulse ox of 57 and called 911. He has had no severe headaches he has had no chest pain has had orthopnea. But he always has orthopnea to some extent. Maybe a little worse. Uses BiPAP at night. Has had a cough. Mostly nonproductive. Denies any abdominal pain. No bowel movement changes. Feels like he is urinating okay. He has not been taking a lot of fluid. Patient has not had any other significant change. Patient apparently had chest pain around 6 months ago at that time had a normal echo and a normal chemical nuclear treadmill which was completely normal. He has not had any abdominal pain or changes. Not had any history of liver issues. Main issue is that he is obese. And has restrictive lung disease. He does note that albuterol helps quite a bit. He has never been told that he has asthma he is not a smoker. He has had multiple issues with his bladder. Has been getting longstanding catheter issues and changes and recently had a suprapubic place. He is having no pain at this time in that area. [facility] Medical History Oxygen dependent BMI 50.0-59.9, adult (08/2024) Sepsis (06/2023) Suprapubic catheter dysfunction Sinus tachycardia Chronic renal failure, stage 3a Acquired buried penis Urinary retention Urinary incontinence Iron deficiency Polyneuropathy, unspecified Anemia of chronic disease Mixed hyperlipidemia Eczema (~1996) Restless leg syndrome (~2013) Tinnitus (~1972) Recurrent sinusitis (~2007) Frequent UTI (~2017) Pancreatitis (~1995) Obstructive sleep apnea of adult (~2013) History of kidney stones Phimosis Lower urinary tract symptoms History of prostate cancer (~2016) Chronic venous insufficiency (04/10/16) Restrictive lung disease (08/16/15) Primary insomnia (08/16/15) Morbid obesity (08/16/15) 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) Surgical History History of transurethral resection of bladder tumor (TURBT) (2023) Chronic suprapubic catheter Anesthesia History of common bile duct surgery (~1997) Status post knee surgery (~1993) Family History Brother Prostate cancer Liver cancer Father Parkinson disease Grandfather Hepatitis Grandfather History of heart disease Grandmother Cancer Social History household members: none Smoking Status: Never smoker alcohol intake: current Meds Home Medications and Allergies Home Medications Medication Instructions Recorded Confirmed Type ropinirole 2 mg tablet 2 mg PO BEDTIME 06/26/20 01/13/25 History trazodone 50 mg tablet 50 mg PO BEDTIME 06/26/20 01/13/25 History ferrous sulfate 325 mg (65 mg 325 mg PO DAILY 09/25/22 01/13/25 History iron) tablet omeprazole 40 mg capsule,delayed 40 mg PO DAILY #90 caps 01/19/24 01/13/25 Rx release potassium chloride 10 mEq 10 meq PO DAILY #90 tabs 05/13/24 01/13/25 Rx tablet,extended release methenamine hippurate 1 gram tablet 1 g PO BID #180 tabs 07/01/24 01/13/25 Rx oxycodone 5 mg tablet 5 mg PO Q8H PRN pain (scale score 09/07/24 01/13/25 Rx 7-10) #7 tabs albuterol sulfate 90 mcg/actuation 2 puff inhalation Q6H PRN 09/12/24 01/13/25 Rx aerosol inhaler shortness of breath or wheezing #8.5 grams inhalational spacing device #1 ea 09/12/24 01/13/25 Rx (Microchamber spacer) furosemide 20 mg tablet 20 - 40 mg (1 - 2 x 20 mg) PO BID 09/27/24 01/13/25 Rx #360 tabs food supplemt, lactose-reduced 1 ea PO QID #28,440 mL 10/04/24 01/13/25 Rx (Ensure Original oral liquid) semaglutide 0.25 mg or 0.5 mg (2 See Rx Instructions SUBCUT QWEEK 10/14/24 01/13/25 Rx mg/3 mL) subcutaneous pen injector #6 mL (Ozempic) meloxicam 7.5 mg tablet 7.5 mg PO DAILY #90 tabs 10/26/24 01/13/25 Rx citric ac 1980.6 mg-glucono 59.4 30 ml irrigation TID 11/02/24 01/13/25 History mg-mag carb 980.4 mg/30 mL irrig.soln (Renacidin) citric ac 1980.6 mg-glucono 59.4 30 ml irrigation TID #900 mL 11/02/24 01/13/25 Rx mg-mag carb 980.4 mg/30 mL irrig.soln (Renacidin) Disabled Parking Permit #1 ea 12/01/24 01/13/25 Rx cefuroxime axetil 500 mg tablet 500 mg PO BID 2 weeks #28 tabs 12/08/24 01/13/25 Rx fluticasone propionate 50 2 spray intranasal BEDTIME #16 12/08/24 01/13/25 Rx mcg/actuation nasal grams spray,suspension duloxetine 30 mg capsule,delayed 30 mg PO DAILY #90 caps 12/22/24 01/13/25 Rx release amoxicillin 500 mg-potassium 1 tab PO BID 01/04/25 01/13/25 History clavulanate 125 mg tablet (Augmentin) cefdinir 300 mg capsule 300 mg PO BID #14 caps 01/06/25 01/13/25 Rx Allergies Allergy/AdvReac Type Severity Reaction Status Date / Time No Known Drug Allergies Allergy Verified 01/13/25 13:52 Review of Systems Review of Systems Narrative: Negative except above Exam Vital Signs (past 8 hours): - 01/22/25 10:16 01/22/25 10:25 01/22/25 10:30 Temperature 99.1 F Pulse Rate 116 H 117 H 117 H Respiratory Rate 33 H 32 H 29 H Blood Pressure 144/68 H Pulse Oximetry 91 92 93 Oxygen Delivery Method Nasal Cannula Oxygen Flow Rate 3 Fraction of Inspired Oxygen 01/22/25 11:01 01/22/25 11:21 01/22/25 11:21 Temperature Pulse Rate 117 H 118 H Respiratory Rate 34 H 29 H Blood Pressure 139/79 Pulse Oximetry 91 93 Oxygen Delivery Method Nasal Cannula Nasal Cannula Oxygen Flow Rate 4 4 Fraction of Inspired Oxygen 01/22/25 11:30 01/22/25 11:30 01/22/25 12:00 Temperature Pulse Rate 119 H Respiratory Rate 28 H Blood Pressure 138/78 130/72 Pulse Oximetry 92 Oxygen Delivery Method Oxygen Flow Rate Fraction of Inspired Oxygen 01/22/25 12:00 01/22/25 12:16 01/22/25 12:30 Temperature Pulse Rate 120 H Respiratory Rate 38 H Blood Pressure 130/72 126/71 Pulse Oximetry 95 Oxygen Delivery Method Oxygen Flow Rate Fraction of Inspired Oxygen 40 01/22/25 12:30 01/22/25 13:00 01/22/25 13:00 Temperature Pulse Rate 122 H 121 H Respiratory Rate 23 24 Blood Pressure 130/74 Pulse Oximetry 92 Oxygen Delivery Method Oxygen Flow Rate Fraction of Inspired Oxygen 01/22/25 13:20 01/22/25 13:30 01/22/25 13:30 Temperature 96.9 F L Pulse Rate 121 H Respiratory Rate 28 H Blood Pressure 137/69 Pulse Oximetry 96 Oxygen Delivery Method BiPAP Oxygen Flow Rate Fraction of Inspired Oxygen 01/22/25 14:09 Temperature Pulse Rate 120 H Respiratory Rate 32 H Blood Pressure Pulse Oximetry Oxygen Delivery Method Oxygen Flow Rate Fraction of Inspired Oxygen Fraction of Inspired Oxygen 40 Oxygen Delivery Method BiPAP Oxygen Flow Rate 4 Narrative Exam Narrative: Alert obese male initially when he came up on stretcher was markedly short of breath. With some accessory muscle breathing but once we sat him up he was breathing comfortably off BiPAP and on nasal cannula talking comfortably in full sentences. Issue is membranes are moist. Neck supple without adenopathy JVD or bruits although difficult to do his size. Lungs are decreased breath sounds throughout with mostly wheezes. Not a lot of crackles. Abdomen was obese soft positive bowel sounds has no tenderness in the right upper quadrant or upper quadrants at all. No tenderness really anywhere in the abdomen no rebound guarding he does have a suprapubic catheter in place with slight blood around the catheter which looks old no erythema extremities with pigmentation changes but no significant edema. Neurologic exam is fully intact Objective Labs 01/22/25 10:38 01/22/25 10:38 Labs: Laboratory Results - last 24 hr 01/22/25 01/22/25 01/22/25 10:28 10:38 10:55 WBC 15.7 H RBC 4.09 L Hgb 12.9 L Hct 40.9 L MCV 100.0 MCH 31.6 MCHC 31.6 RDW 19.2 H Plt Count 120 L Neut % (Auto) 82.1 H Lymph % (Auto) 10.5 L [place] % (Auto) 7.2 Eos % (Auto) 0.0 L Baso % (Auto) 0.2 Neut # (Auto) 94356 H Lymph # (Auto) 1700 [place] # (Auto) 1100 H Eos # (Auto) 0 Baso # (Auto) 0 PT 19.3 H INR 1.7 H APTT 36 VBG pH 7.33 VBG pCO2 64.8 H VBG pO2 30 L VBG HCO3 34 H VBG Total CO2 33 H VBG O2 Saturation 51 L VBG Base Excess 5.6 H FiO2 % 32.0 % Sodium 136 L Potassium 4.4 Chloride 96 L Carbon Dioxide 31 BUN 26 H Creatinine 2.90 H Estimated GFR 23 L BUN/Creatinine Ratio 9.0 Glucose 162 H Calcium 8.7 Magnesium 2.1 Total Bilirubin 2.4 H AST 3106 H ALT 1202 H Alkaline Phosphatase 131 H Total Creatine Kinase 141 Troponin I 0.253 H* NT-Pro-B Natriuret Pep 46940 H Total Protein 8.3 H Albumin 4.0 Globulin 4.3 H Albumin/Globulin Ratio 0.9 L Lipase 52 Procalcitonin 1.05 H Chlamy pneumoniae PCR Not detected Adenovirus (PCR) Not detected B. pertussis DNA (PCR) Not detected B.parapertussis DNA PCR Not detected Coronavirus OC43 (PCR) Not detected Coronavirus HKU1 (PCR) Not detected Coronavirus 229E (PCR) Not detected SARS-CoV-2 (PCR) Not detected Coronavirus NL63 (PCR) Not detected Human Metapneumovir PCR Not detected Influ A (H1N1 Seas) PCR Detected H Influenza Type B (PCR) Not detected M. pneumoniae (PCR) Not detected Parainfluenza 1 (PCR) Not detected Parainfluenza 2 (PCR) Not detected Parainfluenza 3 (PCR) Not detected Parainfluenza 4 (PCR) Not detected RSV (PCR) Not detected Entero/Rhino (PCR) Not detected 01/22/25 13:18 WBC RBC Hgb Hct MCV MCH MCHC RDW Plt Count Neut % (Auto) Lymph % (Auto) [place] % (Auto) Eos % (Auto) Baso % (Auto) Neut # (Auto) Lymph # (Auto) [place] # (Auto) Eos # (Auto) Baso # (Auto) PT INR APTT VBG pH VBG pCO2 VBG pO2 VBG HCO3 VBG Total CO2 VBG O2 Saturation VBG Base Excess FiO2 % Sodium Potassium Chloride Carbon Dioxide BUN Creatinine Estimated GFR BUN/Creatinine Ratio Glucose Calcium Magnesium Total Bilirubin AST ALT Alkaline Phosphatase Total Creatine Kinase Troponin I 0.302 H* NT-Pro-B Natriuret Pep Total Protein Albumin Globulin Albumin/Globulin Ratio Lipase Procalcitonin Chlamy pneumoniae PCR Adenovirus (PCR) B. pertussis DNA (PCR) B.parapertussis DNA PCR Coronavirus OC43 (PCR) Coronavirus HKU1 (PCR) Coronavirus 229E (PCR) SARS-CoV-2 (PCR) Coronavirus NL63 (PCR) Human Metapneumovir PCR Influ A (H1N1 Seas) PCR Influenza Type B (PCR) M. pneumoniae (PCR) Parainfluenza 1 (PCR) Parainfluenza 2 (PCR) Parainfluenza 3 (PCR) Parainfluenza 4 (PCR) RSV (PCR) Entero/Rhino (PCR) Assessment & Plan Assessment & Plan narrative: Acute respiratory failure on chronic what appears to be restrictive lung disease. It appears to be a combination of influenza and congestive heart failure. Patient with a markedly elevated BNP, LFT elevations and respiratory failure. Patient overall probably is slightly dehydrated but clearly we need to get some fluid off. Will add Lasix 40 b.i.d. 1 more dose today and then re-evaluate kidney function and BNP in a.m.. Patient actually much better now that we have him sitting up and I feel as if we are trending in the right direction. Will continue albuterol. Given the fact that albuterol helps and has. And wheezes that were present on exam will place on Solu-Medrol. Elevated troponin. Most likely secondary to demand ischemia. Interesting that he had a completely normal nuclear medicine test 6 months ago although I do not have that here. Given the fact that his EKG was normal without significant changes we will continue to support with oxygen which I think probably will be the biggest issue and fluid restrictions and proceed from there. Will obtain echo tomorrow. This point I feel like he is stable and we should be in good shape. No heparin at this time. Hepatitis. Elevated bilirubin, LFTs. Pretty significantly elevated. But I suspect this is secondary to congestive heart failure and hopefully as we get some fluid off this will improve. Will obtain ultrasound. To evaluate. Recheck a.m.. Infectious disease. Patient flu positive. Will begin Tamiflu. Patient with elevated white count with left shift probably from Tamiflu but given the fact that he just went through procedure and urine is positive. Will cover with Rocephin. Patient was on antibiotics previously. No evidence of pneumonia but will cover with Rocephin. We also will follow-up blood cultures which were taken. I do not think it Zithromax is indicated at this time I do not think his respiratory failure is secondary to pneumonia but will see how things go. May need to add additional coverage. Due to his renal failure will give 1 g Q 24 hours until we have established further renal failure parameters. Restrictive lung disease. Will continue CPAP anytime he lays down. Or tries to sleep. Depression. Continue duloxetine. GI prophylaxis on omeprazole at home will continue DVT prophylaxis. Platelets are mildly down at this time. Probably secondary to his viral infection will start Lovenox now but may need to discontinue depending on what happens with that. Code status. We had a long discussion about his code status. Patient has been DNR in the past. Apparently there is a number of people that would like him to changes but he himself does not want to be resuscitated he feels as if his health issues are making life very difficult and well he is not ready to give up he does not want to be resuscitated. Or intubated. Placed. Disposition. Patient moderately sick at this time. Certainly some major issues that are going to take some time for it to settle out. Patient is in ICU at this time. Will continue to follow. Time-Based Coding :: [TOTAL MINUTES] spent with patient and on the chart (including review of chart, obtaining history, exam, reviewing outside data, placing orders, documenting exam and treatment plan, and counseling patient) on [DATE].
--- NOTE | 2025-01-22 16:32 | PC.ADMIT ---
[email or web address] Admission Note: Pt arrived to room 230 at approximately 1358. Pt able to pivot to other bed with difficulty positioning buttocks onto bed due to height and body habitus. Pt switched to ICU monitoring, able to tolerate 4L NC to answer questions from provider and this RN for admission and neurological assessment. Pt reports feeling weird and foggy. Pt oriented to call light, bed controls, and room. Bed in chair position for ease of work of breathing, pt reports comfort. Call light within reach, care ongoing. The patient,Jose Francisco Akers,69 y/o, was given written information regarding hospital policies, unit procedures and contact persons. Patient's smoking status: Never smoker. Vital Signs - 8 hr 01/22/25 10:16 01/22/25 10:25 01/22/25 10:30 Temperature 99.1 F Pulse Rate 116 H 117 H 117 H Respiratory Rate 33 H 32 H 29 H Blood Pressure 144/68 H Pulse Oximetry 91 92 93 Oxygen Delivery Method Nasal Cannula Oxygen Flow Rate 3 Fraction of Inspired Oxygen 01/22/25 11:01 01/22/25 11:21 01/22/25 11:21 Temperature Pulse Rate 117 H 118 H Respiratory Rate 34 H 29 H Blood Pressure 139/79 Pulse Oximetry 91 93 Oxygen Delivery Method Nasal Cannula Nasal Cannula Oxygen Flow Rate 4 4 Fraction of Inspired Oxygen 01/22/25 11:30 01/22/25 11:30 01/22/25 12:00 Temperature Pulse Rate 119 H Respiratory Rate 28 H Blood Pressure 138/78 130/72 Pulse Oximetry 92 Oxygen Delivery Method Oxygen Flow Rate Fraction of Inspired Oxygen 01/22/25 12:00 01/22/25 12:16 01/22/25 12:30 Temperature Pulse Rate 120 H Respiratory Rate 38 H Blood Pressure 130/72 126/71 Pulse Oximetry 95 Oxygen Delivery Method Oxygen Flow Rate Fraction of Inspired Oxygen 40 01/22/25 12:30 01/22/25 13:00 01/22/25 13:00 Temperature Pulse Rate 122 H 121 H Respiratory Rate 23 24 Blood Pressure 130/74 Pulse Oximetry 92 Oxygen Delivery Method Oxygen Flow Rate Fraction of Inspired Oxygen 01/22/25 13:20 01/22/25 13:30 01/22/25 13:30 Temperature 96.9 F L Pulse Rate 121 H Respiratory Rate 28 H Blood Pressure 137/69 Pulse Oximetry 96 Oxygen Delivery Method BiPAP Oxygen Flow Rate Fraction of Inspired Oxygen 01/22/25 13:55 01/22/25 14:09 01/22/25 14:58 Temperature Pulse Rate 120 H 117 H Respiratory Rate 32 H 23 Blood Pressure Pulse Oximetry 91 Oxygen Delivery Method BiPAP Oxygen Flow Rate Fraction of Inspired Oxygen 01/22/25 15:00 01/22/25 15:00 01/22/25 15:28 Temperature Pulse Rate 116 H Respiratory Rate 22 Blood Pressure 132/78 132/78 Pulse Oximetry 91 Oxygen Delivery Method Oxygen Flow Rate Fraction of Inspired Oxygen 40
[2025-01-22] MEDS: SUCRALFATE 1 GM TABLET PO ×2 (17:52→23:37)
[2025-01-22] MEDS: TRAZODONE 50 MG TABLET PO (20:24)
[2025-01-22] MEDS: ROPINIROLE 1 MG TABLET 2 MG PO (20:24)
[2025-01-22] MEDS: SODIUM CHLORIDE 0.9% FLUSH 10 ML IV (20:25)
[2025-01-23] VITALS (63 sets, daily range): BP systolic 119–166; BP diastolic 60–91; PULSE 93–115; RESP 10–35; TEMP 35.2–37.3; O2SAT 83–98
[2025-01-23 05:02] LABS: Add Manual Diff / Slide Review NO; Basophils Absolute Auto 0 /uL (0-100); Basophils Percent Auto 0.2 % (0-2); Eosinophils Absolute Auto 0 /uL (0-450); Hematocrit 36.2 % (41-53); Hemoglobin 11.7 g/dL (13.5-17.5); Lymphocytes Absolute Auto 700 /uL (1100-4500); Lymphocytes Percent Auto 6.5 % (25-40); Mean Corpuscular HGB Conc 32.2 % (30-36); Mean Corpuscular Hemoglobin 32.1 PG (26-34); Mean Corpuscular Volume 99.7 fL (80-100); Monocytes Absolute Auto 200 /uL (0-900); Monocytes Percent Auto 1.9 % (3-14); Neutrophils Absolute Auto 9500 /uL (1500-7000); Neutrophils Percent Auto 91.4 % (50-75); Platelet Count 101 X10^3/uL (150-400); Red Blood Cell Count 3.63 X10^6/uL (4.5-5.9); Red Cell Distribution Width 19.2 % (11.6-14.8); White Blood Cell Count 10.4 X10^3/uL (4.5-11.0)
[2025-01-23 05:13] LABS: Creatine Kinase 85 U/L (55-170); Lactate (Lactic Acid) 2.3 mmol/L (0.7-2.1)
[2025-01-23 05:14] LABS: Albumin 3.6 g/dL (3.5-5.0); Albumin Globulin Ratio 0.9 (1.0-2.8); Alkaline Phosphatase 116 U/L (38-126); BUN Creatinine Ratio 12.7 (6-22); Bilirubin Total 1.2 mg/dL (0.2-1.3); Blood Urea Nitrogen 36 mg/dL (9-20); Calcium 8.3 mg/dL (8.4-10.2); Carbon Dioxide 33 mmol/L (22-32); Chloride 97 mmol/L (98-107); Estimated Glomerular Filt Rate 23 mL/min (>60); Globulin 4.2 g/dL (1.7-4.1); Glucose 201 mg/dL (80-110); HEMOLYSIS < 15 (0-50); Potassium 4.4 mmol/L (3.4-5.1); Sodium 138 mmol/L (137-145); Total Protein 7.8 g/dL (6.3-8.2)
[2025-01-23 05:23] LABS: NT-proBNP (BNP-Adult 18+) 10200 pg/mL (<125)
[2025-01-23 05:48] LABS: Alanine Aminotransferase 1382 IU/L (<50); Aspartate Aminotransferase 1378 IU/L (17-59)
[2025-01-23] MEDS: PANTOPRAZOLE DR 40 MG TABLET PO (05:54)
[2025-01-23] MEDS: SUCRALFATE 1 GM TABLET PO ×4 (05:54→23:59)
--- NOTE | 2025-01-23 06:00 | DI.US.S_ITS ---
PROCEDURE: US ABDOMEN LIMITED INDICATIONS: HEPATITIS TECHNIQUE: Real-time scanning was performed of the abdominal and retroperitoneal organs, with image documentation. COMPARISON: [facility], US, US ABDOMEN COMPLETE, 09/26/2024, 8:29. FINDINGS: Liver: Increased liver echogenicity with posterior attenuation, most consistent with moderate to severe steatosis. Gallbladder: Cholelithiasis. No wall thickening. No pericholecystic edema. Negative sonographic Zuniga's sign. Biliary ducts: Intrahepatic bile ducts are non-dilated. Extrahepatic bile duct caliber measures 5.1 mm. Normal is 6-7 mm or less in diameter, or 10 mm or less post-cholecystectomy. Pancreas: Visualized portions of the pancreas are sonographically normal. Miscellaneous: No free abdominal fluid. IMPRESSION: Cholelithiasis without sonographic evidence of acute cholecystitis. Hepatic steatosis. In the absence of alcohol use or other confounding factors, elevated LFTs may indicate [id number] steatohepatitis (MASH). Dictated by: Juan Diego Suarez M.D. on 01/23/2025 at 8:47 Approved by: Juan Diego Suarez M.D. on 01/23/2025 at 8:48
[2025-01-23 06:35] LABS: Reflexed Lactate in 2 Hours Y
[2025-01-23 07:06] LABS: Lactate 2HR (Lactic Acid Rflx) 2.9 mmol/L (0.7-2.1)
--- NOTE | 2025-01-23 07:35 | PM.PN.IH.1 ---
Subjective Subjective Date Patient Seen: 01/23/25 Time Patient Seen: 07:35 Interval history: 69-year-old morbidly obese male well known to me admitted yesterday with acute hypoxic respiratory failure. Tested positive for influenza a, had super elevated BNP and clinical symptoms are most consistent with acute congestive heart failure, also had lots of wheezing and maybe some element obstructive lung disease present. Compounding this patient had new suprapubic catheter placed on Thursday the at [facility] in [place] and had really not function while at all since returning home Initially was quite hypoxic and in severe respiratory distress but much improved when sat upright. Obviously his size limits his ability to breathe mechanically when supine. He was given Lasix for his congestive heart failure Tamiflu for his influenza and started on parental corticosteroids given the ongoing wheezing and evidence of possible obstructive lung disease. Patient does have known restrictive lung disease related to his size Overnight patient has been stable. Still borderline hypoxic at times. Urine output 1100 yesterday, and 800 since midnight Patient with evidence of acute kidney injury upon admission as well but that has minimally improved this morning Vital signs have been stable. Patient remained somewhat tachycardic which he is baseline for him Exam Vital Signs (past 8 hours): - 01/22/25 23:59 01/23/25 00:00 01/23/25 00:00 Temperature Pulse Rate 103 H 102 H Respiratory Rate 20 19 Blood Pressure 136/73 Pulse Oximetry 96 96 Oxygen Delivery Method Fraction of Inspired Oxygen 01/23/25 00:30 01/23/25 00:30 01/23/25 01:00 Temperature Pulse Rate 100 H Respiratory Rate 21 Blood Pressure 123/66 119/76 Pulse Oximetry 95 Oxygen Delivery Method Fraction of Inspired Oxygen 01/23/25 01:00 01/23/25 01:30 01/23/25 01:30 Temperature Pulse Rate 98 H 96 H Respiratory Rate 21 20 Blood Pressure 121/72 Pulse Oximetry 96 96 Oxygen Delivery Method Fraction of Inspired Oxygen 01/23/25 02:00 01/23/25 02:00 01/23/25 02:15 Temperature Pulse Rate 95 H Respiratory Rate 22 Blood Pressure 128/75 Pulse Oximetry 91 Oxygen Delivery Method BiPAP Fraction of Inspired Oxygen 01/23/25 02:30 01/23/25 02:30 01/23/25 02:59 Temperature Pulse Rate 96 H 95 H Respiratory Rate 20 20 Blood Pressure 128/73 Pulse Oximetry 96 96 Oxygen Delivery Method Fraction of Inspired Oxygen 01/23/25 03:00 01/23/25 03:00 01/23/25 03:15 Temperature Pulse Rate 93 H Respiratory Rate 20 Blood Pressure 120/75 120/75 Pulse Oximetry 96 Oxygen Delivery Method Fraction of Inspired Oxygen 40 01/23/25 03:30 01/23/25 03:30 01/23/25 04:00 Temperature 99.1 F Pulse Rate 101 H Respiratory Rate 21 Blood Pressure 129/89 Pulse Oximetry 96 Oxygen Delivery Method Fraction of Inspired Oxygen 01/23/25 04:00 01/23/25 04:00 01/23/25 04:30 Temperature Pulse Rate 106 H 105 H Respiratory Rate 25 H 31 H Blood Pressure 125/78 Pulse Oximetry 97 95 Oxygen Delivery Method Fraction of Inspired Oxygen 01/23/25 04:30 01/23/25 05:00 01/23/25 05:30 Temperature Pulse Rate 103 H 109 H Respiratory Rate 29 H 30 H Blood Pressure 133/70 Pulse Oximetry 94 95 Oxygen Delivery Method Fraction of Inspired Oxygen 01/23/25 06:00 01/23/25 06:01 01/23/25 06:01 Temperature Pulse Rate 107 H 106 H Respiratory Rate 35 H 33 H Blood Pressure 158/73 H Pulse Oximetry 84 L 88 L Oxygen Delivery Method Fraction of Inspired Oxygen 01/23/25 06:22 Temperature Pulse Rate Respiratory Rate Blood Pressure Pulse Oximetry Oxygen Delivery Method BiPAP Fraction of Inspired Oxygen Fraction of Inspired Oxygen 40 Oxygen Delivery Method BiPAP Oxygen Flow Rate 4 Objective Labs 01/23/25 04:50 01/23/25 04:50 Labs: Laboratory Results - last 24 hr 01/22/25 01/22/25 01/22/25 10:28 10:38 10:55 WBC 15.7 H RBC 4.09 L Hgb 12.9 L Hct 40.9 L MCV 100.0 MCH 31.6 MCHC 31.6 RDW 19.2 H Plt Count 120 L Neut % (Auto) 82.1 H Lymph % (Auto) 10.5 L Rooks % (Auto) 7.2 Eos % (Auto) 0.0 L Baso % (Auto) 0.2 Neut # (Auto) 72427 H Lymph # (Auto) 1700 Rooks # (Auto) 1100 H Eos # (Auto) 0 Baso # (Auto) 0 PT 19.3 H INR 1.7 H APTT 36 VBG pH 7.33 VBG pCO2 64.8 H VBG pO2 30 L VBG HCO3 34 H VBG Total CO2 33 H VBG O2 Saturation 51 L VBG Base Excess 5.6 H FiO2 % 32.0 % Sodium 136 L Potassium 4.4 Chloride 96 L Carbon Dioxide 31 BUN 26 H Creatinine 2.90 H Estimated GFR 23 L BUN/Creatinine Ratio 9.0 Glucose 162 H Lactate Calcium 8.7 Magnesium 2.1 Total Bilirubin 2.4 H AST 3106 H ALT 1202 H Alkaline Phosphatase 131 H Total Creatine Kinase 141 Troponin I 0.253 H* NT-Pro-B Natriuret Pep 46339 H Total Protein 8.3 H Albumin 4.0 Globulin 4.3 H Albumin/Globulin Ratio 0.9 L Lipase 52 Procalcitonin 1.05 H Chlamy pneumoniae PCR Not detected Adenovirus (PCR) Not detected B. pertussis DNA (PCR) Not detected B.parapertussis DNA PCR Not detected Coronavirus OC43 (PCR) Not detected Coronavirus HKU1 (PCR) Not detected Coronavirus 229E (PCR) Not detected SARS-CoV-2 (PCR) Not detected Coronavirus NL63 (PCR) Not detected Human Metapneumovir PCR Not detected Influ A (H1N1 Seas) PCR Detected H Influenza Type B (PCR) Not detected M. pneumoniae (PCR) Not detected Parainfluenza 1 (PCR) Not detected Parainfluenza 2 (PCR) Not detected Parainfluenza 3 (PCR) Not detected Parainfluenza 4 (PCR) Not detected RSV (PCR) Not detected Entero/Rhino (PCR) Not detected 01/22/25 01/23/25 01/23/25 13:18 04:50 06:45 WBC 10.4 RBC 3.63 L Hgb 11.7 L Hct 36.2 L MCV 99.7 MCH 32.1 MCHC 32.2 RDW 19.2 H Plt Count 101 L Neut % (Auto) 91.4 H Lymph % (Auto) 6.5 L Rooks % (Auto) 1.9 L Eos % (Auto) 0.0 L Baso % (Auto) 0.2 Neut # (Auto) 9500 H Lymph # (Auto) 700 L Rooks # (Auto) 200 Eos # (Auto) 0 Baso # (Auto) 0 PT INR APTT VBG pH VBG pCO2 VBG pO2 VBG HCO3 VBG Total CO2 VBG O2 Saturation VBG Base Excess FiO2 % Sodium 138 Potassium 4.4 Chloride 97 L Carbon Dioxide 33 H BUN 36 H Creatinine 2.83 H Estimated GFR 23 L BUN/Creatinine Ratio 12.7 Glucose 201 H Lactate 2.3 H 2.9 H Calcium 8.3 L Magnesium Total Bilirubin 1.2 AST 1378 H ALT 1382 H Alkaline Phosphatase 116 Total Creatine Kinase 85 Troponin I 0.302 H* NT-Pro-B Natriuret Pep 88021 H Total Protein 7.8 Albumin 3.6 Globulin 4.2 H Albumin/Globulin Ratio 0.9 L Lipase Procalcitonin Chlamy pneumoniae PCR Adenovirus (PCR) B. pertussis DNA (PCR) B.parapertussis DNA PCR Coronavirus OC43 (PCR) Coronavirus HKU1 (PCR) Coronavirus 229E (PCR) SARS-CoV-2 (PCR) Coronavirus NL63 (PCR) Human Metapneumovir PCR Influ A (H1N1 Seas) PCR Influenza Type B (PCR) M. pneumoniae (PCR) Parainfluenza 1 (PCR) Parainfluenza 2 (PCR) Parainfluenza 3 (PCR) Parainfluenza 4 (PCR) RSV (PCR) Entero/Rhino (PCR) [facility] Medical History Oxygen dependent BMI 50.0-59.9, adult (08/2024) Sepsis (06/2023) Suprapubic catheter dysfunction Sinus tachycardia Chronic renal failure, stage 3a Acquired buried penis Urinary retention Urinary incontinence Iron deficiency Polyneuropathy, unspecified Anemia of chronic disease Mixed hyperlipidemia Eczema (~1996) Restless leg syndrome (~2013) Tinnitus (~1972) Recurrent sinusitis (~2007) Frequent UTI (~2017) Pancreatitis (~1995) Obstructive sleep apnea of adult (~2013) History of kidney stones Phimosis Lower urinary tract symptoms History of prostate cancer (~2016) Chronic venous insufficiency (04/10/16) Restrictive lung disease (08/16/15) Primary insomnia (08/16/15) Morbid obesity (08/16/15) 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 Acute hypoxic respiratory failure-continue treatment of medical issues as below. BiPAP as necessary. Continue oxygen supplementation as well aiming for an O2 saturation of about 88-90%. Patient clearly was hypoxic for an extended period of time based on his story. 2. Acute congestive heart failure-echo to be done today. By report patient had normal echo and cardiac stress test within the last 6 months. Obviously echo is going to be limited given his body habitus. Continue with aggressive diuretic therapy for now. Renal function has slightly improved with diuresis. 3. Acute influenza A-this is a component I think to his overall respiratory distress as well. Continue with Tamiflu and supportive therapy. I also believe this is the etiology for his abnormal LFTs, at least in part 4. Acute hepatitis-patient with evidence of hepatic issue. Initial LFTs 3000+ now half that. Improving with treatment of his respiratory issues. Likely in part due to his Influenza A but maybe some passive congestion as well given his significant congestive heart failure etcetera. Continue to monitor carefully. Ultrasound to be performed today as well 5. Acute kidney injury on top of chronic renal failure stage 3 a-minimally improved today. Continue aggressive diuretic therapy. I believe he was had some passive congestion if you will in the kidney as well as the liver and hopefully we can improve that with reducing his overall volume and or improving his cardiac function 6. Cardiac-patient with elevated troponin but less than 1. This is almost certainly due to his combination issues with his acute kidney injury as well as maybe some mild demand ischemia. Will try and obtain records from his prior cardiac evaluation at [facility], I do not believe this is an acute myocardial infarction situation. No indication for heparin or cardiac catheterization at this point in my opinion. Baseline ECG is abnormal this could be masking some ischemic changes but I do not see evidence of ischemia in the whole picture 7. Bladder outlet obstruction-patient with evidence previously of bladder outlet obstruction related to his morbid obesity for the most part. Now with suprapubic catheter in place draining urine adequately. Continue to monitor numbers. He will continue antibiotic therapy for now given the recent procedure into his bladder while awaiting culture results. Do not believe there is actually an active UTI at this point but should continue antibiotic therapy for another 24 hours anyway 8. Morbid obesity-obviously patient's size he was a contributing factor to any of the above issues including his inability to breathe on his back he was restrictive lung disease. Also has contributed greatly to his bladder outlet obstructive process requiring procedures as noted. Time-Based Coding :: [TOTAL MINUTES] spent with patient and on the chart (including review of chart, obtaining history, exam, reviewing outside data, placing orders, documenting exam and treatment plan, and counseling patient) on [DATE]. Quality VTE Deep Vein Thrombosis/Pulmonary Embolism Present on Admission: No IH PROFEE Digital Project Manager Document charge(s): Yes Charge Codes Subsequent inpatient/observation care: [id number]
[2025-01-23 08:16] LABS: Albumin 3.4 g/dL (3.5-5.0); Albumin Globulin Ratio 0.9 (1.0-2.8); Alkaline Phosphatase 122 U/L (38-126); Bilirubin Total 1.2 mg/dL (0.2-1.3); Blood Urea Nitrogen 36 mg/dL (9-20); Calcium 8.2 mg/dL (8.4-10.2); Carbon Dioxide 34 mmol/L (22-32); Chloride 97 mmol/L (98-107); Estimated Glomerular Filt Rate 24 mL/min (>60); Globulin 3.8 g/dL (1.7-4.1); Glucose 197 mg/dL (80-110); HEMOLYSIS < 15 (0-50); Potassium 4.9 mmol/L (3.4-5.1); Sodium 138 mmol/L (137-145); Total Protein 7.2 g/dL (6.3-8.2)
[2025-01-23 08:23] LABS: Alanine Aminotransferase 1423 IU/L (<50)
[2025-01-23] MEDS: OSELTAMIVIR 75 MG CAPSULE PO ×2 (08:52→20:19)
[2025-01-23] MEDS: DULOXETINE 30 MG CAPSULE PO (08:52)
[2025-01-23 08:53] LABS: Aspartate Aminotransferase 1504 IU/L (17-59)
[2025-01-23] MEDS: ENOXAPARIN 30 MG/0.3 ML SYRINGE SUBCUT (08:53)
[2025-01-23] MEDS: FUROSEMIDE 40 MG/4 ML VIAL 80 MG IV ×2 (08:53→23:59)
[2025-01-23] MEDS: SODIUM CHLORIDE 0.9% FLUSH 10 ML IV ×2 (08:53→20:18)
--- NOTE | 2025-01-23 11:13 | DI.ECHO.S_ITS ---
Version 2 [place] [facility] +---------+ Hospital : : [id number] : : [place] : : [id number] : : Phone: [phone] Echocardiogram Report + + :Name: PENNY VIGIL Study Date: 01/23/2025 Height: 68 in : :[facility] ReadingLocation: [place] Weight: 372 lb : : Gender: Male BSA: 2.7 m2 : :: 1955 Age: 69 yrs BP: 124/70 mmHg: :Reason For Study: Dyspnea : :Ordering Physician: ANA : :TERESA Performed By: Betina Rhoades : :Referring: TERESA PEREZ : + + Interpretation Summary Technically limited and difficult study. Pt was supine and had difficulty with his breathing. Sinus tachycardia. The heart rate ranged between 94-115 bpm during the study. The patient had a bundle branch block rhythm during the exam. The left ventricular ejection fraction is normal. The ejection fraction is estimated to be 60-65%. The interventricular septum is flattened, consistent with a right ventricular pressure/volume condition. The right ventricle is not well visualized. All the valves were not well-visualized however no gross significant abnormality seen. The IVC is of normal diameter and collapses less than 50% with a sniff. This suggests a right atrial pressure of 8 mm Hg. Procedure: A two-dimensional transthoracic echocardiogram with color flow and Doppler was performed. The study was done portably. The study quality was technically limited. Comparison is made with the echocardiogram of 11/27/2023. The patient was in a tachycardic rhythm during the exam. The heart rate ranged between 94-115 bpm during the study. The patient had occasional PVCs during the exam. Sinus tachycardia. The patient had a bundle branch block rhythm during the exam. Left Ventricle: The left ventricle is grossly normal size. There is normal left ventricular wall thickness. The left ventricular ejection fraction is normal. The ejection fraction is estimated to be 60-65%. The interventricular septum is flattened, consistent with a right ventricular pressure/volume condition. Diastolic function could not be accurately assessed due to tachycardia. Right Ventricle: The right ventricle is not well visualized. Atria: The left atrium is not well visualized. Right atrium not well visualized. Mitral Valve: The mitral valve is grossly normal. There is mild mitral annular calcification. There is no mitral valve stenosis. There is no mitral regurgitation noted. Aortic Valve: The aortic valve is trileaflet. The aortic valve opens well. The aortic valve is slightly calcified. There is no aortic valve stenosis. Tricuspid Valve: The tricuspid valve is not well visualized. Pulmonary artery pressures cannot be estimated because of the lack of a measurable TR jet velocity but the IVC suggests a CVP of around 8 mmHg. There is trace tricuspid regurgitation. Pulmonic Valve: The pulmonic valve is not well visualized. Great Vessels: The aortic root is normal size. The ascending aorta is normal in size. The aortic arch could not be visualized. The pulmonary is not well visualized. The IVC is of normal diameter and collapses less than 50% with a sniff. This suggests a right atrial pressure of 8 mm Hg. Pericardium/ Pleura There is an anterior echo-free space consistent with a fat pad. Pleural effusion noted. MMode/2D Measurements & Calculations LVIDd: 5.3 cm LVOT diam: 2.4 cm LVIDs: 4.6 cm Ao root diam: 3.2 cm FS: 13.0 % asc Aorta Diam: 3.1 cm EPSS: 0.87 cm IVSd: 1.0 cm LVPWd: 1.0 cm LV clayton. diameter/BSA (cm/m^2): 2.0 LV sys. diameter/BSA (cm/m^2): 1.7 LA A4 area: 19.8 cm2 IVC diam: 1.7 cm LA length (vol): 5.2 cm TAPSE: 1.6 cm Doppler Measurements & Calculations PA V2 max: 86.1 cm/sec PA V2 mean: 64.1 cm/sec PA mean P.7 mmHg PA pr(Accel): 53.3 mmHg Reading Physician:03:39 PM
[2025-01-23] MEDS: cefTRIAXone 1,000 MG in SODIUM CHLORIDE 0.9% 100 ML 200 MG IV (12:27)
--- NOTE | 2025-01-23 13:59 | PC.NURSE ---
Day shift: Pt A&Ox4, tolerating 4L NC. Back on BiPAP after breakfast and NC during lunch. Pt back on BiPAP after lunch. At approximately 1352, pt heart rhythm showed on telemetry what appeared to be a 13-beat run of V-tach or a sinus tachycardia/SVT at a heartrate of 170-190. Pt asymptomatic, BP 138/75, HR now 105-110 sinus tach 1st degree AVB, BBB. Provider Dr. Goldstein notified. No new orders. Care ongoing.
--- NOTE | 2025-01-23 15:01 | CM.DANOTE ---
B DCP Assessment Note pt is a 69yo M admitted with acute hypoxic resp failure, CHF, flu. INPT under care of PCP Group PCP [facility] and Medicaid MEDICAL SCIENCE LIAISON reviewed EMR. Per RN/chart review/[place] note, pt on and off Bipap during admission. 2ltrs O2 at the moment, none at baseline. Hx of Sig HH, not active. lives alone in [place], local ANITRA Tiffany as support. CGs 5 days/week (hours unknown, Medicaid EMILY CGs?) MEDICAL SCIENCE LIAISON attempted to meet with pt in room, sleeping heavily, allowed to rest. P: anticipate return home with CGs when medically stable. CM team will continue to follow closely in case any DCP needs arise. PATIENCE Leonardo Discharge Planning/Care Management CM Discharge Assessment Start: 01/23/25 15:00 Freq: Status: Active Protocol: Document 01/23/25 15:00 SL (Rec: 01/23/25 15:01 SL Desktop) Discharge Planning Assessment Assigned Pattern Weaver PATIENCE Tillman DPOA/Assigned Designee Name Tiffany, family Contact Information [phone] Advance Directives? No Advance Directives on File No History Provided By Patient,Medical Record Prior Living Arrangements House Household Members none Comment ownes wheelchair/walker but only uses cane at baseline Discharge Plan Home Transportation Arrangement Pt states ANITRA Allen or a local friend can transport him home at d/c Referrals Initiated None needed Additional Comment hx of Sig HH Review Status In Process Please Provide Date Initial DC 01/23/25 Assessment Was Performed Next Review Type Continued Stay Review
[2025-01-23] MEDS: guaiFENesin ER 600 MG TAB PO (15:33)
[2025-01-23 15:45] LABS: Acinetobacter calcoa-baumannii Not Detected (Not Detect); Bacteroides fragilis Not Detected (Not Detect); CTX-M Resistance Not Detected (Not Detect); Candida albicans Not Detected (Not Detect); Candida auris Not Detected (Not Detect); Candida glabrata Not Detected (Not Detect); Candida krusei Not Detected (Not Detect); Candida parapsilosis Not Detected (Not Detect); Candida tropicalis Not Detected (Not Detect); Cryptococcus neoformans/gatti Not Detected (Not Detect); Enterobacter cloacae complex Not Detected (Not Detect); Enterobacterales Not Detected (Not Detect); Enterococcus faecalis Not Detected (Not Detect); Enterococcus faecium Not Detected (Not Detect); Haemophilus influenzae Not Detected (Not Detect); IMP Resistance Not Detected (Not Detect); KPC Resistance Not Detected (Not Detect); Klebsiella aerogenes Not Detected (Not Detect); Listeria monocytogenes Not Detected (Not Detect); NDM Resistance Not Detected (Not Detect); Neisseria meningitidis Not Detected (Not Detect); Proteus species Not Detected (Not Detect); Pseudomonas aeruginosa Detected (Not Detect); Salmonella species Not Detected (Not Detect); Serratia marcescens Not Detected (Not Detect); Staphylococcus epidermidis Detected (Not Detect); Staphylococcus lugdunensis Not Detected (Not Detect); Staphylococcus species Detected (Not Detect); Stenotrophomonas maltophilia Not Detected (Not Detect); Streptococcus agalactiae (Gr B Not Detected (Not Detect); Streptococcus pneumonia Not Detected (Not Detect); Streptococcus pyogenes (Gr A) Not Detected (Not Detect); Streptococcus species Not Detected (Not Detect); VIM Resistance Not Detected (Not Detect); mecA/C Resistance Detected (Not Detect)
[2025-01-23 19:45] LABS: MRSA (Nasal) PCR NOT DETECTED (Not Detect)
[2025-01-23] MEDS: ALBUTEROL 2.5 MG/3 ML NEB (ADULT) INH ×2 (19:57→23:28)
[2025-01-23] MEDS: HYDROCODONE/ACET 5/325 TABLET 1 TAB PO (20:18)
[2025-01-23] MEDS: ROPINIROLE 1 MG TABLET 2 MG PO (20:19)
[2025-01-23] MEDS: TRAZODONE 50 MG TABLET PO (20:19)
[2025-01-24] VITALS (50 sets, daily range): BP systolic 118–163; BP diastolic 66–101; PULSE 89–114; RESP 10–37; TEMP 35.8–36.3; O2SAT 86–99
[2025-01-24 00:08] LABS: HBsAg Screen Negative (Negative); Hepatitis A Antibody IgM Negative (Negative); Hepatitis B Core Antibody IgM Negative (Negative); Hepatitis C Antibody Non Reactive (Non Reactive)
[2025-01-24] MEDS: PANTOPRAZOLE DR 40 MG TABLET PO (06:08)
[2025-01-24] MEDS: SUCRALFATE 1 GM TABLET PO ×3 (06:08→18:03)
--- NOTE | 2025-01-24 06:50 | P.PN_ITS ---
Subjective Subjective Date Patient Seen: 01/24/25 Time Patient Seen: 06:50 Interval history: Basically uneventful night. Continues on 4 liters/minute nasal cannula Excellent urine output yesterday, approximately 3 L Labs delayed this morning still pending No new complaints from patient When switching off of the CPAP/BiPAP overnight to nasal cannula this morning he left himself on room air hit a minimum of 86% saturation before returning to oxygen. Continues to believe he was going to need oxygen at home when he is probably right. Blood culture x1 growing Gram-negative bacilli. Other blood culture that is far negative Exam Vital Signs (past 8 hours): - 01/23/25 23:00 01/23/25 23:29 01/23/25 23:30 Temperature Pulse Rate 104 H 108 H 108 H Respiratory Rate 24 20 21 Blood Pressure Pulse Oximetry 98 97 97 Oxygen Delivery Method Nasal Cannula Oxygen Flow Rate 4 Fraction of Inspired Oxygen 32 01/23/25 23:33 01/23/25 23:35 01/23/25 23:35 Temperature 95.4 F L Pulse Rate 101 H Respiratory Rate 22 Blood Pressure 123/75 123/76 Pulse Oximetry 98 Oxygen Delivery Method Oxygen Flow Rate Fraction of Inspired Oxygen 40 01/24/25 00:00 01/24/25 00:00 01/24/25 00:30 Temperature Pulse Rate 100 H 97 H Respiratory Rate 17 17 Blood Pressure Pulse Oximetry 96 95 Oxygen Delivery Method BiPAP Oxygen Flow Rate Fraction of Inspired Oxygen 01/24/25 01:00 01/24/25 01:30 01/24/25 02:00 Temperature Pulse Rate 96 H 101 H 104 H Respiratory Rate 17 18 21 Blood Pressure Pulse Oximetry 96 97 97 Oxygen Delivery Method Oxygen Flow Rate Fraction of Inspired Oxygen 01/24/25 02:30 01/24/25 03:00 01/24/25 03:16 Temperature Pulse Rate 94 H 93 H Respiratory Rate 16 17 Blood Pressure 118/75 Pulse Oximetry 97 96 Oxygen Delivery Method Oxygen Flow Rate Fraction of Inspired Oxygen 01/24/25 03:16 01/24/25 03:30 01/24/25 06:00 Temperature 97.4 F L Pulse Rate 95 H 100 H Respiratory Rate 18 20 Blood Pressure Pulse Oximetry 98 98 Oxygen Delivery Method Nasal Cannula BiPAP Oxygen Flow Rate Fraction of Inspired Oxygen Fraction of Inspired Oxygen 40 SaO2/FiO2 Ratio 303 Oxygen Delivery Method Nasal Cannula,BiPAP Oxygen Flow Rate 4 Objective Labs 01/23/25 04:50 01/23/25 04:50 Labs: Laboratory Results - last 24 hr 01/22/25 01/23/25 01/23/25 10:38 04:50 06:45 Sodium 138 Potassium 4.9 Chloride 97 L Carbon Dioxide 34 H BUN 36 H Creatinine 2.77 H Estimated GFR 24 L BUN/Creatinine Ratio 13.0 Glucose 197 H Lactate 2.9 H Calcium 8.2 L Total Bilirubin 1.2 AST 1504 H ALT 1423 H Alkaline Phosphatase 122 Total Protein 7.2 Albumin 3.4 L Globulin 3.8 Albumin/Globulin Ratio 0.9 L Nasal Screen MRSA (PCR) A.calcoaceticus-baumannii cmplx PCR Not detected Bacteroides fragilis Not detected Melina albicans (PCR) Not detected Melina auris (PCR) Not detected C. glabrata (PCR) Not detected C. krusei (PCR) Not detected C. parapsilosis (PCR) Not detected C. tropicalis (PCR) Not detected C. neoform/gattii (PCR) Not detected Enterobacterales (PCR) Not detected E. cloacae complex PCR Not detected Enterococc faecalis PCR Not detected Enterococc faecium PCR Not detected E. coli (PCR) Not detected H. influenzae (PCR) Not detected Hepatitis A IgM Ab Hep Bs Antigen Hep B Core IgM Ab Hepatitis C Antibody Hep C Ab Signal/Cutoff Klebsiella aerogenes (PCR) Not detected Klebsiella oxytoca PCR Not detected Klebsiella pneumoniae Not detected List. monocytogenes PCR Not detected N. meningitidis (PCR) Not detected Proteus species (PCR) Not detected Salmonella spp. (PCR) Not detected Serratia marcescens PCR Not detected Staphylococcus sp PCR Detected Staph aureus (PCR) Not detected mecA/C & MREJ Resist Gene Not applicable mecA/C-Methicil Resis Gene Detected mcr-1 Colistin Res Gene PCR Not applicable Staph epidermidis (PCR) Detected Staph lugdunensis PCR Not detected S. maltophilia (PCR) Not detected Streptococcus sp PCR Not detected Group A Strep (PCR) Not detected Strep agalactiae (PCR) Not detected Strep pneumoniae (PCR) Not detected P. aeruginosa (PCR) Detected [place]/B-Vanco Res Genes Not applicable blaIMP Car res Gene PCR Not detected KPC-Carbap Res Gene PCR Not detected blaNDM Car Res Gene PCR Not detected OXA-48 Carbapenem Resis Gene (PCR) Not applicable blaVIM Car Res Gene PCR Not detected CTX-M Gene Resistance (PCR) Not detected 01/23/25 01/23/25 08:20 18:00 Sodium Potassium Chloride Carbon Dioxide BUN Creatinine Estimated GFR BUN/Creatinine Ratio Glucose Lactate Calcium Total Bilirubin AST ALT Alkaline Phosphatase Total Protein Albumin Globulin Albumin/Globulin Ratio Nasal Screen MRSA (PCR) Not detected A.calcoaceticus-baumannii cmplx PCR Bacteroides fragilis Melina albicans (PCR) Melina auris (PCR) C. glabrata (PCR) C. krusei (PCR) C. parapsilosis (PCR) C. tropicalis (PCR) C. neoform/gattii (PCR) Enterobacterales (PCR) E. cloacae complex PCR Enterococc faecalis PCR Enterococc faecium PCR E. coli (PCR) H. influenzae (PCR) Hepatitis A IgM Ab Negative Hep Bs Antigen Negative Hep B Core IgM Ab Negative Hepatitis C Antibody Non reactive Hep C Ab Signal/Cutoff Comment Klebsiella aerogenes (PCR) Klebsiella oxytoca PCR Klebsiella pneumoniae List. monocytogenes PCR N. meningitidis (PCR) Proteus species (PCR) Salmonella spp. (PCR) Serratia marcescens PCR Staphylococcus sp PCR Staph aureus (PCR) mecA/C & MREJ Resist Gene mecA/C-Methicil Resis Gene mcr-1 Colistin Res Gene PCR Staph epidermidis (PCR) Staph lugdunensis PCR S. maltophilia (PCR) Streptococcus sp PCR Group A Strep (PCR) Strep agalactiae (PCR) Strep pneumoniae (PCR) P. aeruginosa (PCR) [place]/B-Vanco Res Genes blaIMP Car res Gene PCR KPC-Carbap Res Gene PCR blaNDM Car Res Gene PCR OXA-48 Carbapenem Resis Gene (PCR) blaVIM Car Res Gene PCR CTX-M Gene Resistance (PCR) [facility] Medical History Oxygen dependent BMI 50.0-59.9, adult (08/2024) Sepsis (06/2023) Suprapubic catheter dysfunction Sinus tachycardia Chronic renal failure, stage 3a Acquired buried penis Urinary retention Urinary incontinence Iron deficiency Polyneuropathy, unspecified Anemia of chronic disease Mixed hyperlipidemia Eczema (~1996) Restless leg syndrome (~2013) Tinnitus (~1972) Recurrent sinusitis (~2007) Frequent UTI (~2017) Pancreatitis (~1995) Obstructive sleep apnea of adult (~2013) History of kidney stones Phimosis Lower urinary tract symptoms History of prostate cancer (~2016) Chronic venous insufficiency (04/10/16) Restrictive lung disease (08/16/15) Primary insomnia (08/16/15) Morbid obesity (08/16/15) 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 Acute hypoxic respiratory failure-continue treatment of medical issues as below. BiPAP as necessary. Continue oxygen supplementation as well aiming for an O2 saturation of about 88-90%. Patient clearly was hypoxic for an extended period of time based on his story. Probably will need to be on oxygen at home. When closer to discharge would consider home oxygen evaluation 2. Acute congestive heart failure-adequate diuresis based on urine production. ECHO was performed yesterday but still looking for formal report so no information there as yet 3. Acute influenza A-this is a component I think to his overall respiratory distress as well. Continue with Tamiflu and supportive therapy. 4. Acute hepatitis-awaiting lab results. Patient clinically much improved so assume this will continue to improve 5. Acute kidney injury on top of chronic renal failure stage 3 a-awaiting lab results but making good urine no evidence of any complication from a clinical standpoint 6. Cardiac-hemodynamically stable. Awaiting echo report 7. Bladder outlet obstruction with chronic catheterization-patient was new suprapubic catheter placed on January 20. Growing Gram-negative bacilli out of 1 blood culture. Patient previously has grown Pseudomonas from urine. Will alter antibiotic therapy to cover potential Pseudomonas given that finding. 8. Morbid obesity-obviously patient's size he was a contributing factor to any of the above issues including his inability to breathe on his back he was restrictive lung disease. Also has contributed greatly to his bladder outlet obstructive process requiring procedures as noted. Time-Based Coding :: [TOTAL MINUTES] spent with patient and on the chart (including review of chart, obtaining history, exam, reviewing outside data, placing orders, documenting exam and treatment plan, and counseling patient) on [DATE]. Quality VTE Deep Vein Thrombosis/Pulmonary Embolism Present on Admission: No IH PROFEE Security Clerk Document charge(s): Yes Charge Codes Subsequent inpatient/observation care: [id number]
--- NOTE | 2025-01-24 07:32 | PC.NURSE ---
Ski Edge Painter Note- Patient has been A/Ox3, forgetful of date sometimes. Slept with Bipap 40% 25/05 from midnight to 0600. Canova given at HS for incisional pain at suprapubic site. IV Lasix 80mg given, total 1800ml UOP.
[2025-01-24] MEDS: SODIUM CHLORIDE 0.9% FLUSH 10 ML IV ×3 (07:46→20:20)
[2025-01-24] MEDS: DULOXETINE 30 MG CAPSULE PO (08:27)
[2025-01-24] MEDS: OSELTAMIVIR 75 MG CAPSULE PO ×2 (08:27→20:19)
[2025-01-24] MEDS: ENOXAPARIN 30 MG/0.3 ML SYRINGE SUBCUT (08:27)
[2025-01-24] MEDS: HYDROCODONE/ACET 5/325 TABLET 1 TAB PO ×2 (08:29→19:13)
[2025-01-24 08:41] LABS: Albumin 3.4 g/dL (3.5-5.0); Albumin Globulin Ratio 0.9 (1.0-2.8); Alkaline Phosphatase 121 U/L (38-126); Aspartate Aminotransferase 579 IU/L (17-59); BUN Creatinine Ratio 21.2 (6-22); Bilirubin Total 0.8 mg/dL (0.2-1.3); Blood Urea Nitrogen 45 mg/dL (9-20); Calcium 8.4 mg/dL (8.4-10.2); Carbon Dioxide 31 mmol/L (22-32); Chloride 95 mmol/L (98-107); Estimated Glomerular Filt Rate 33 mL/min (>60); Globulin 3.9 g/dL (1.7-4.1); Glucose 197 mg/dL (80-110); HEMOLYSIS 15 (0-50); Potassium 3.9 mmol/L (3.4-5.1); Sodium 136 mmol/L (137-145); Total Protein 7.3 g/dL (6.3-8.2)
[2025-01-24 08:54] LABS: Alanine Aminotransferase 1097 IU/L (<50)
[2025-01-24] MEDS: FUROSEMIDE 40 MG/4 ML VIAL 80 MG IV (12:50)
--- NOTE | 2025-01-24 16:03 | CM.DPNOTE ---
DCP note SENIOR PRODUCT DEVELOPMENT MANAGER reviewed EMR per RN, labs improved today. Pt remains on BiPap throughout day, sleeping heavily for the most part. echo pending. Per Dr. Goldstein note, anticipates pt likely to need new home O2 eval on dc. CM team will follow closely as pt gets closer to being medically stable to dc to help coordinate new home O2 eval as needed. Pt sleeping throughout day, SENIOR PRODUCT DEVELOPMENT MANAGER allowed to rest. Will continue to follow if PT/OT needed when pt more medically appropriate. P: home with in home CG support and OP f/u. follow if PT/OT indicated/if new home O2 eval indicated. dc timeline unknown at this time, anticipate another few days before dc? PATIENCE Leonardo
[2025-01-24] MEDS: guaiFENesin ER 600 MG TAB PO (18:03)
[2025-01-24] MEDS: ALBUTEROL/IPRATROPIUM 3 ML AMPUL INH (20:07)
[2025-01-24] MEDS: ROPINIROLE 1 MG TABLET 2 MG PO (20:19)
[2025-01-24] MEDS: TRAZODONE 50 MG TABLET PO (20:19)
[2025-01-24] MEDS: SIMETHICONE 80 MG TABLET PO (21:24)
[2025-01-24] MEDS: ENOXAPARIN 40 MG/0.4 ML SYRINGE SUBCUT (21:24)
[2025-01-25] VITALS (12 sets, daily range): BP systolic 142–151; BP diastolic 72–82; PULSE 91–102; RESP 10–24; TEMP 36–37; O2SAT 89–98
[2025-01-25] MEDS: SUCRALFATE 1 GM TABLET PO ×5 (01:00→23:15)
[2025-01-25] MEDS: FUROSEMIDE 40 MG/4 ML VIAL 80 MG IV ×3 (01:00→23:15)
[2025-01-25] MEDS: HYDROCODONE/ACET 5/325 TABLET 1 TAB PO (02:58)
[2025-01-25 05:55] LABS: Albumin 3.5 g/dL (3.5-5.0); Albumin Globulin Ratio 0.8 (1.0-2.8); Alkaline Phosphatase 109 U/L (38-126); Aspartate Aminotransferase 213 IU/L (17-59); BUN Creatinine Ratio 24.7 (6-22); Bilirubin Total 0.9 mg/dL (0.2-1.3); Blood Urea Nitrogen 48 mg/dL (9-20); Calcium 8.4 mg/dL (8.4-10.2); Carbon Dioxide 36 mmol/L (22-32); Chloride 93 mmol/L (98-107); Estimated Glomerular Filt Rate 37 mL/min (>60); Globulin 4.4 g/dL (1.7-4.1); Glucose 199 mg/dL (80-110); HEMOLYSIS < 15 (0-50); Potassium 3.3 mmol/L (3.4-5.1); Sodium 135 mmol/L (137-145); Total Protein 7.9 g/dL (6.3-8.2)
[2025-01-25 06:05] LABS: Alanine Aminotransferase 851 IU/L (<50)
[2025-01-25] MEDS: PANTOPRAZOLE DR 40 MG TABLET PO (06:41)
--- NOTE | 2025-01-25 07:58 | PM.PN.IH.1 ---
Subjective Subjective Date Patient Seen: 01/25/25 Time Patient Seen: 07:58 Interval history: Essentially uneventful day yesterday Lab work shows continued improvement in renal function hepatic function etcetera. Still very good urine output now a bit hypokalemic Ultrasound of the abdomen failed to demonstrate anything serious going on with liver some mild steatohepatitis probably. Echocardiography unchanged from previous some degree of right heart dysfunction no new significant structural heart disease or left ventricular dysfunction Now growing Gram-positive cocci and Gram-negative bacilli from blood. Only 1 blood culture growing, the other that is far is negative for anything Continues with the minimal oxygen requirement, currently at 2.5 L nasal cannula No real complaints. Patient continues to feel better day by day. Working on getting his bowels working Exam Vital Signs (past 8 hours): - 01/25/25 00:00 01/25/25 00:00 01/25/25 00:30 Pulse Rate 101 H 95 H Respiratory Rate 16 23 Pulse Oximetry 97 90 L Oxygen Delivery Method Nasal Cannula BiPAP 01/25/25 01:00 01/25/25 01:30 01/25/25 02:00 Pulse Rate 93 H 95 H 91 H Respiratory Rate 15 20 17 Pulse Oximetry 89 L 91 92 Oxygen Delivery Method 01/25/25 02:30 01/25/25 04:00 Pulse Rate 91 H Respiratory Rate 15 Pulse Oximetry 91 Oxygen Delivery Method Nasal Cannula BiPAP Fraction of Inspired Oxygen 25 SaO2/FiO2 Ratio 335 Oxygen Delivery Method Nasal Cannula,BiPAP Oxygen Flow Rate 2 Objective Labs 01/23/25 04:50 01/25/25 04:50 Labs: Laboratory Results - last 24 hr 01/24/25 01/25/25 07:45 04:50 Sodium 136 L 135 L Potassium 3.9 3.3 L Chloride 95 L 93 L Carbon Dioxide 31 36 H BUN 45 H 48 H Creatinine 2.12 H 1.94 H Estimated GFR 33 L 37 L BUN/Creatinine Ratio 21.2 24.7 H Glucose 197 H 199 H Calcium 8.4 8.4 Total Bilirubin 0.8 0.9 AST 579 H 213 H ALT 1097 H 851 H Alkaline Phosphatase 121 109 Total Protein 7.3 7.9 Albumin 3.4 L 3.5 Globulin 3.9 4.4 H Albumin/Globulin Ratio 0.9 L 0.8 L [facility] Medical History Oxygen dependent BMI 50.0-59.9, adult (08/2024) Sepsis (06/2023) Suprapubic catheter dysfunction Sinus tachycardia Chronic renal failure, stage 3a Acquired buried penis Urinary retention Urinary incontinence Iron deficiency Polyneuropathy, unspecified Anemia of chronic disease Mixed hyperlipidemia Eczema (~1996) Restless leg syndrome (~2013) Tinnitus (~1972) Recurrent sinusitis (~2007) Frequent UTI (~2017) Pancreatitis (~1995) Obstructive sleep apnea of adult (~2013) History of kidney stones Phimosis Lower urinary tract symptoms History of prostate cancer (~2016) Chronic venous insufficiency (04/10/16) Restrictive lung disease (08/16/15) Primary insomnia (08/16/15) Morbid obesity (08/16/15) 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 Acute hypoxic respiratory failure-continue treatment of medical issues as below. BiPAP as necessary. Continue oxygen supplementation as well aiming for an O2 saturation of about 88-90%. Patient clearly was hypoxic for an extended period of time based on his story. Probably will need to be on oxygen at home. Home oxygen evaluation tomorrow. Maybe ready for discharge as soon as Thursday. Okay to transfer out of ICU status and to more floor status with the use of CPAP overnight 2. Acute congestive heart failure-continue with parental diuretic therapy. Echocardiography reassuring. Replace electrolytes as needed 3. Acute influenza A-this is a component I think to his overall respiratory distress as well. Continue with Tamiflu and supportive therapy. 4. Acute hepatitis-numbers continue to improve, imaging unremarkable. Again think a combination of passive congestion maybe the influenza. 5. Acute kidney injury on top of chronic renal failure stage 3 a-continue slow but steady improvement. Continue to monitor 6. Cardiac-hemodynamically stable. Echo basically unchanged from previous. Expected (given his body habitus etcetera) findings of probably early cor pulmonale 7. Bladder outlet obstruction with chronic catheterization-patient was new suprapubic catheter placed on January 20. Growing Gram-negative bacilli and now Gram-positive cocci out of 1 blood culture, other blood culture not growing anything. Antibiotic therapy adjusted yesterday to an anti pseudomonal. Continue parental antibiotics for now awaiting identification of organisms. 8. Morbid obesity-obviously patient's size he was a contributing factor to any of the above issues including his inability to breathe on his back he was restrictive lung disease. Also has contributed greatly to his bladder outlet obstructive process requiring procedures as noted. Time-Based Coding :: [TOTAL MINUTES] spent with patient and on the chart (including review of chart, obtaining history, exam, reviewing outside data, placing orders, documenting exam and treatment plan, and counseling patient) on [DATE]. Quality VTE Deep Vein Thrombosis/Pulmonary Embolism Present on Admission: No PROFEE Speech And Language Specialist Document charge(s): Yes Charge Codes Subsequent inpatient/observation care: [id number]
[2025-01-25] MEDS: DULOXETINE 30 MG CAPSULE PO (08:45)
[2025-01-25] MEDS: POTASSIUM CHLORIDE 20 MEQ TAB 40 MEQ PO (08:45)
[2025-01-25] MEDS: SIMETHICONE 80 MG TABLET PO (08:45)
[2025-01-25] MEDS: SODIUM CHLORIDE 0.9% FLUSH 10 ML IV ×2 (08:45→20:23)
[2025-01-25] MEDS: ENOXAPARIN 40 MG/0.4 ML SYRINGE SUBCUT ×2 (08:45→20:23)
[2025-01-25] MEDS: OSELTAMIVIR 75 MG CAPSULE PO ×2 (08:45→20:23)
[2025-01-25 11:54] LABS: Hemoglobin A1C% w Est Avg Glu 5.6 % (4.0-6.0)
--- NOTE | 2025-01-25 13:09 | CM.DPNOTE ---
DCP Cont Reviewed chart. Patient discussed in multidisciplinary rounds. Dr Goldstein indicates in his prog note medical management continues, patient will likely need new home O2. Chronic cath with outlet obstruction, patient on antibiotics - now awaiting identification of organisms. Therapy evals anticipated tomorrow 01/[address]stein. Discharge plan at this time is discharge home w/family, caregivers, potentially HH, w/close outpatient follow up. CM team following clinical course closely for coordination of eventual discharge plan. TOYIN
[2025-01-25] MEDS: POTASSIUM CHLORIDE 20 MEQ TAB PO (17:20)
[2025-01-25] MEDS: ROPINIROLE 1 MG TABLET 2 MG PO (20:22)
[2025-01-25] MEDS: TRAZODONE 50 MG TABLET PO (20:23)
[2025-01-26] VITALS (8 sets, daily range): BP systolic 133–166; BP diastolic 65–92; PULSE 94–111; RESP 10–43; TEMP 31–37; O2SAT 93–97
[2025-01-26 05:13] LABS: Alanine Aminotransferase 617 IU/L (<50); Albumin 3.6 g/dL (3.5-5.0); Albumin Globulin Ratio 0.9 (1.0-2.8); Alkaline Phosphatase 101 U/L (38-126); Aspartate Aminotransferase 94 IU/L (17-59); BUN Creatinine Ratio 27.8 (6-22); Bilirubin Total 0.7 mg/dL (0.2-1.3); Blood Urea Nitrogen 50 mg/dL (9-20); Calcium 8.4 mg/dL (8.4-10.2); Chloride 92 mmol/L (98-107); Estimated Glomerular Filt Rate 40 mL/min (>60); Globulin 4.2 g/dL (1.7-4.1); Glucose 196 mg/dL (80-110); HEMOLYSIS < 15 (0-50); Potassium 3.4 mmol/L (3.4-5.1); Sodium 137 mmol/L (137-145); Total Protein 7.8 g/dL (6.3-8.2)
[2025-01-26 05:15] LABS: Magnesium 1.9 mg/dL (1.6-2.3)
[2025-01-26 05:19] LABS: Carbon Dioxide 37 mmol/L (22-32)
[2025-01-26] MEDS: SUCRALFATE 1 GM TABLET PO ×3 (06:43→17:34)
[2025-01-26] MEDS: PANTOPRAZOLE DR 40 MG TABLET PO (06:43)
--- NOTE | 2025-01-26 07:31 | P.PN_ITS ---
Subjective Subjective Date Patient Seen: 01/26/25 Time Patient Seen: 07:31 Interval history: Unremarkable day yesterday Lab work shows continued improvement in renal function. Patient with a nearly 5 L of urine out yesterday Micro shows blood culture growing Pseudomonas consistent with prior Pseudomonas from urine cultures. Current antibiotic therapy is appropriate. Also grew staph epidermidis likely a contaminant Blood sugar noted to be a bit elevated, parental steroids decreased yesterday Patient up walking to the bathroom and then a little bit inside his room with nursing assistance and a walker. Feels like he has more strength legs are less shaky today than they were yesterday No new complaints or issues Exam Vital Signs (past 8 hours): - 01/26/25 00:00 01/26/25 03:24 01/26/25 04:00 Temperature 96.2 F L 96.1 F L Pulse Rate 94 H 96 H Respiratory Rate 20 19 Blood Pressure 141/78 H 147/84 H Pulse Oximetry 94 94 Oxygen Flow Rate 2 2 Fraction of Inspired Oxygen 0.35 Fraction of Inspired Oxygen 0.35 SaO2/FiO2 Ratio 335 Oxygen Delivery Method Nasal Cannula,BiPAP Oxygen Flow Rate 2 Objective Labs 01/23/25 04:50 01/26/25 04:00 Labs: Laboratory Results - last 24 hr 01/25/25 01/26/25 04:50 04:00 Sodium 137 Potassium 3.4 Chloride 92 L Carbon Dioxide 37 H BUN 50 H Creatinine 1.80 H Estimated GFR 40 L BUN/Creatinine Ratio 27.8 H Glucose 196 H Hemoglobin A1c 5.6 Calcium 8.4 Magnesium 1.9 Total Bilirubin 0.7 AST 94 H ALT 617 H Alkaline Phosphatase 101 Total Protein 7.8 Albumin 3.6 Globulin 4.2 H Albumin/Globulin Ratio 0.9 L [facility] Medical History Oxygen dependent BMI 50.0-59.9, adult (08/2024) Sepsis (06/2023) Suprapubic catheter dysfunction Sinus tachycardia Chronic renal failure, stage 3a Acquired buried penis Urinary retention Urinary incontinence Iron deficiency Polyneuropathy, unspecified Anemia of chronic disease Mixed hyperlipidemia Eczema (~1996) Restless leg syndrome (~2013) Tinnitus (~1972) Recurrent sinusitis (~2007) Frequent UTI (~2017) Pancreatitis (~1995) Obstructive sleep apnea of adult (~2013) History of kidney stones Phimosis Lower urinary tract symptoms History of prostate cancer (~2016) Chronic venous insufficiency (04/10/16) Restrictive lung disease (08/16/15) Primary insomnia (08/16/15) Morbid obesity (08/16/15) 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 Acute hypoxic respiratory failure-continues to slowly improve. Still on minimal oxygen however. 2. Acute congestive heart failure-continue with parental diuretic therapy. Excellent urine output. Renal function improving. No change in plan for today. 3. Acute influenza A-this is a component I think to his overall respiratory distress as well. Continue with Tamiflu until day 5, and supportive therapy. 4. Acute hepatitis-numbers continue to improve, imaging unremarkable. Again think a combination of passive congestion maybe the influenza. 5. Acute kidney injury on top of chronic renal failure stage 3 a-continue slow but steady improvement. Continue to replace electrolytes as necessary 6. Cardiac-hemodynamically stable. Echo basically unchanged from previous. Expected (given his body habitus etcetera) findings of probably early cor pulmonale 7. Bladder outlet obstruction with chronic catheterization-patient was new suprapubic catheter placed on January 20. Growing Pseudomonas consistent with prior urine cultures. Current antibiotic therapy is appropriate. Also grew staph epidermidis which he was likely a contaminant and not present in the second bottle. Will plan for least 7 days total of appropriate antibiotic therapy 8. Morbid obesity-obviously patient's size he was a contributing factor to any of the above issues including his inability to breathe on his back he was restrictive lung disease. Also has contributed greatly to his bladder outlet obstructive process requiring procedures as noted. 9. Disposition-patient likely to return home with family assistance. Will need to be evaluated by skilled therapies prior to discharge 10. Hyperglycemia-I am going to discontinue his corticosteroids today. These were started in an effort to help improve his lung function given the wheezing that was audible but I think that was probably more ?cardiac asthma ?than true obstructive lung disease. Previous evaluations have failed to demonstrate any significant obstructive lung disease. He has been on these meds for less than a week and I think they can be suddenly stopped. This should help his blood sugar control, obviously. Time-Based Coding :: [TOTAL MINUTES] spent with patient and on the chart (including review of chart, obtaining history, exam, reviewing outside data, placing orders, documenting exam and treatment plan, and counseling patient) on [DATE]. Quality VTE Deep Vein Thrombosis/Pulmonary Embolism Present on Admission: No PROFEE Cradle Slide Maker Document charge(s): Yes Charge Codes Subsequent inpatient/observation care: [id number]
[2025-01-26] MEDS: POTASSIUM CHLORIDE 20 MEQ TAB PO ×3 (07:39→17:34)
[2025-01-26] MEDS: INSULIN LISPRO 100 UNIT/ML 3ML VIAL SUBCUT ×3 (07:53→17:35)
[2025-01-26] MEDS: ENOXAPARIN 40 MG/0.4 ML SYRINGE SUBCUT ×2 (08:42→20:26)
[2025-01-26] MEDS: OSELTAMIVIR 75 MG CAPSULE PO ×2 (08:43→20:27)
[2025-01-26] MEDS: DULOXETINE 30 MG CAPSULE PO (08:43)
[2025-01-26] MEDS: SODIUM CHLORIDE 0.9% FLUSH 10 ML IV ×2 (08:44→20:28)
--- NOTE | 2025-01-26 09:05 | OT.IP.EVAL ---
Current Diagnoses Acute and chronic respiratory failure, unspecified whether with hypoxia or hypercapnia (01/22/25) Past Medical History (Last Reviewed 01/25/25 @ 08:44 by Vince Goldstein MD) Acquired buried penis Anemia of chronic disease BMI 50.0-59.9, adult (08/2024) Chronic renal failure, stage 3a Chronic venous insufficiency (04/10/16) Eczema (~1996) Frequent UTI (~2017) 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) History of kidney stones History of prostate cancer (~2016) Iron deficiency Lower urinary tract symptoms Mixed hyperlipidemia Morbid obesity (08/16/15) Obstructive sleep apnea of adult (~2013) Oxygen dependent Pancreatitis (~1995) Phimosis Polyneuropathy, unspecified Primary insomnia (08/16/15) Recurrent sinusitis (~2007) Restless leg syndrome (~2013) Restrictive lung disease (08/16/15) Sepsis (06/2023) Sinus tachycardia Suprapubic catheter dysfunction Tinnitus (~1972) Urinary incontinence Urinary retention Surgical History (Last Reviewed 01/25/25 @ 08:44 by Vince Goldstein MD) Anesthesia Chronic suprapubic catheter History of common bile duct surgery (~1997) History of transurethral resection of bladder tumor (TURBT) (2023) Status post knee surgery (~1993) Occupational Therapy Inpatient Evaluation/Re-Eval M1 PT/OT-IP Prior Functional Status Start: 01/26/25 10:03 Freq: NEEDED Status: Active Protocol: Document 01/26/25 10:03 [facility] (Rec: 01/26/25 10:25 [facility] Desktop) Medical Review Prior Functional Status Communication I Mobility and Gait Pt uses a SPC to get around and on a good day able to walk 120ft to his car. Activities of Daily Living and IADL's Pt able to do with increased time from ADL needs. Pt has caregivers 5x/week from 1030- 1800 to assist with IADL needs , bathing, and taking him to appointments. Social History Household Members none Living Arrangements House Number of Floors (Floors) One Floor Number of Stairs To Enter/Railing? Pt has 2 steps with left rail to enter his house. Home Environment Standard Height Toilet,Walk in Shower Home Equipment Front Wheel Walker,Straight Cane,Manual Wheelchair,Shower Seat with Backrest,Revenue Investigator, Sock Aid,Bed Rails Additional Social History Comment Pt has suction cup grab bars. M2 OT-IP Current Condition Start: 01/26/25 10:03 Freq: Status: Active Protocol: Document 01/26/25 10:03 [facility] (Rec: 01/26/25 10:25 [facility] Desktop) Occupational Therapy Current Condition Current Condition Evaluation Date 01/26/25 Treatment Diagnosis Acute Hypoxic respiratory failure, Acute CHF Diagnosis Onset Date 01/22/25 M3 OT- IP Subjective and Pain Start: 01/26/25 10:03 Freq: Status: Active Protocol: Document 01/26/25 10:03 [facility] (Rec: 01/26/25 10:25 [facility] Desktop) OT- Subjective Occupational Therapy Visit Type Type Initial Evaluation Visit Start Time 09:05 Visit Stop Time 09:43 Occupational Therapy Visit Comments Patient Comments Pt agreed to get up. Patient/Caregiver Goals TO get better. OT Pain Assessment Pain When Pain Assessed At Rest Pain Present Pain Present Denied Pain M4 OT- IP ADL's Start: 01/26/25 10:03 Freq: Status: Active Protocol: Document 01/26/25 10:03 [facility] (Rec: 01/26/25 10:25 [facility] Desktop) OT [id number] Comments OT Self-Feeding Comments Not at meal time. OT ADL-Grooming General Evaluation Areas Needing Assistance Retrieving/Set-up of Grooming Items Comments OT Grooming Comments Pt having to sit from grooming needs as getting SOB. OT ADL-Oral Care General Eval Areas of Assistance Retrieving/Set-Up of Items Comments Oral Care Comments Pt not having enough energy to stand and brush his teeth and just opted to rinse his mouth out with mouthwash. OT ADL-Dressing General Eval Lower Body Dressing Ability Maximum Assistance Areas Needing Assistance Socks OT ADL-Toileting General Evaluation Toileting Ability Total Assistance Comments OT Toileting Comments Montoya in place. OT ADL-Bathing Comments OT Bathing Comments Sponge off or use of rolling shower chair due to decreased activity tolerance and weakness. M5 OT- IP IADL's Start: 01/26/25 10:03 Freq: Status: Active Protocol: Document 01/26/25 10:03 [facility] (Rec: 01/26/25 10:25 [facility] Desktop) OT-Instrumental Activities of Daily Living Home Safety Awareness Awareness of Need for Assistance at Home Good Awareness Ability to Problem Solve Emergency Able to Problem Solve Situations Medication Management Medication Management Comments Pt states does his own. Money Management Money Management Comments Pt states does his own. Meal Preparation Meal Preparation Caregiver Provides Assist 2Nd Grade Teacher 2Nd Grade Teacher Caregiver Provides Assist M6 OT- IP Functional Cognition Start: 01/26/25 10:03 Freq: Status: Active Protocol: Document 01/26/25 10:03 [facility] (Rec: 01/26/25 10:25 [facility] Desktop) Cognitive Factors Limiting Selfcare Function Cognitive Ability Level of Alertness Alert Patient Orientation Name,Age,Birthday,Month,Date, Year,Day of Week,Place, Situation Attention Span Ability Capable of Focused Attention Ability to Follow Commands Able to Follow One Step Commands Cognitive Comments Cognitive Assessment Comments Pt able to follow commands for ADL and mobility needs. Pt is a little hard of hearing, however therapist also having a mask on. OT- Vision and Hearing OT- Hearing Assessment OT- Hearing Assessment Hearing Impaired OT- Vision Assessment Visual Acuity Glasses For Reading Visual Attentiveness WFL Occular Pursuits WFL M7 OT- IP Mobility and Balance Start: 01/26/25 10:03 Freq: Status: Active Protocol: Document 01/26/25 10:03 [facility] (Rec: 01/26/25 10:25 [facility] Desktop) OT- Bed Mobility Assessment Supine to Sit Supine to Sit Assist Moderate Assistance Sit to Supine Sit to Supine Assist Contact Guard Assistance OT-Transfer Assessment Sit to and From Stand Sit to and from Stand Contact Guard Assistance Transfers Transfer Ability Contact Guard Assistance, Minimal Assistance Technique Transfer Destination Bed,Chair Devices Transfer Assistive Devices Straight Cane Comments Mobility Comments Pt already sitting up and able to stand with CGA and [place] for all tubing management needs. Pt able to walk with the SPC to the sink and getting SOB and having to sit down and rest. Pt on 1L and started at 94% and dropped to 88%. Pt able to get into the bed with CGA assist as pt gets his knee up into bed and turns himself with use of momentum. Pt needing MODA to help get his trunk upright from supine to sit. Pt only able to take 8 ft before having to sit down and rest. In addition, pt would be better off to use the FWW at this time to help conserve his energy. OT- Balance Assessment Sitting Balance and Reactions Static Sitting Balance Ability Good Dynamic Sitting Balance Ability Good Standing Balance and Reactions Static Standing Balance Ability Fair Dynamic Standing Balance Ability Fair M8 OT- IP Objective Assessments Start: 01/26/25 10:03 Freq: Status: Active Protocol: Document 01/26/25 10:03 [facility] (Rec: 01/26/25 10:25 [facility] Desktop) OT Gross Range of Motion Upper Extremity Range of Motion Assessment Within Functional Limits ROM Impairments Grossly WFL, LUE tends to raise up in scaption. OT Strength Comments Strength Comments LUE 4-/5 to 4/5, RUE 4/5 M9 OT- IP Assessment and Plan Start: 01/26/25 10:03 Freq: Status: Active Protocol: Document 01/26/25 10:03 [facility] (Rec: 01/26/25 10:25 [facility] Desktop) OT Summary Assessment and Plan Potential Rehabilitation Potential Good Analytic Complexity at Evaluation Moderate Summary OT Impairments Range of Motion,Strength, Balance,Functional Mobility, Self-Feeding,Grooming,Dressing ,Toileting,Bathing,Toilet Transfers,Shower Transfers, Activity Tolerance Progress Towards Goals Slow Progress due to Medical Issues,Slow Progress due to Activity Tolerance Assessment Summary Pt MOD complexity and main barriers are decreased activity tolerance, now needing one person assist to help get up from bed, on 1L of O2 and dropping from 94to 88% after just walking to the sink from the recliner. Pt has caregiver assist during the weekdays, however alone on the weekends. At this time best for pt to go to skilled rehab to work on getting off O2, increase overall activity tolerance so able to do his ADL and mobility needs. Pt is very motivated to go to skilled rehab. Goals Self-Feeding Goal Independent Grooming Goal Independent Dressing Goal Independent Toileting Goal Independent Bathing Goal Independent Toilet Transfer Goal Independent Shower Transfer Goal Independent Days to Meet Goals 15 Frequency of Treatment Other frequency 5x/week Treatment Plan OT Treatment Plan ADL Training,Functional Mobility,Patient/Family Education,Discharge Planning Discharge Recommendations OT Discharge Recommendations SNF Rehab Transportation Needs at Discharge Wheelchair/Cabulance
--- NOTE | 2025-01-26 11:31 | CM.DPNOTE ---
Addendum entered by PATIENCE Rodriguez 01/26/25 14:07: ADD: Patient will be discharging with need of IV Ceftazidime 2G Q8, total of 7 days, dosing started today. Updated Nina at [facility]. PICC ordered today. Original Note: DCP Lilibeth Met w/patient this morning to review discharge plan. Discussed therapy recommendations for SNF. Patient agrees and prefers [facility] ([facility]) as he has spent time there in the past. Referral sent to Nina at [facility] via email, included therapy notes. Awaiting response. Hospital exempt PASRR completed due to patient's use of Cymblata and Trazodone. PASRR left on chart for Dr Goldstein to sign. Dr Goldstein updated with anticipated discharge plan. [place] 01/26-01/27. CM team following closely for coordination of discharge plan. [place]
--- NOTE | 2025-01-26 11:36 | PT.IIE ---
Current Diagnoses Acute and chronic respiratory failure, unspecified whether with hypoxia or hypercapnia (01/22/25) Surgical History (Last Reviewed 01/25/25 @ 08:44 by Vince Goldstein MD) Anesthesia Chronic suprapubic catheter History of common bile duct surgery (~1997) History of transurethral resection of bladder tumor (TURBT) (2023) Status post knee surgery (~1993) Medical History (Last Reviewed 01/25/25 @ 08:44 by Vince Goldstein MD) Acquired buried penis Anemia of chronic disease BMI 50.0-59.9, adult (08/2024) Chronic renal failure, stage 3a Chronic venous insufficiency (04/10/16) Eczema (~1996) Frequent UTI (~2017) 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) History of kidney stones History of prostate cancer (~2016) Iron deficiency Lower urinary tract symptoms Mixed hyperlipidemia Morbid obesity (08/16/15) Obstructive sleep apnea of adult (~2013) Oxygen dependent Pancreatitis (~1995) Phimosis Polyneuropathy, unspecified Primary insomnia (08/16/15) Recurrent sinusitis (~2007) Restless leg syndrome (~2013) Restrictive lung disease (08/16/15) Sepsis (06/2023) Sinus tachycardia Suprapubic catheter dysfunction Tinnitus (~1972) Urinary incontinence Urinary retention Physical Therapy Inpatient Evaluation/Re-Eval M1 PT/OT-IP Prior Functional Status Start: 01/26/25 10:03 Freq: NEEDED Status: Active Protocol: Document 01/26/25 11:26 [facility] (Rec: 01/26/25 11:36 [facility] [id number]) Medical Review Prior Functional Status Medical History Reviewed Yes Communication I Mobility and Gait Pt uses a SPC to get around and on a good day able to walk 120ft to his car. Activities of Daily Living and IADL's Pt able to do with increased time from ADL needs. Pt has caregivers 5x/week from 1030- 1800 to assist with IADL needs , bathing, and taking him to appointments. Social History Household Members none Living Arrangements House Number of Floors (Floors) One Floor Number of Stairs To Enter/Railing? Pt has 2 steps with left rail to enter his house. Home Environment Standard Height Toilet,Walk in Shower Home Equipment Front Wheel Walker,Straight Cane,Manual Wheelchair,Shower Seat with Backrest,Denture Model Maker, Sock Aid,Bed Rails Additional Social History Comment Pt has suction cup grab bars. M2 PT-IP Current Condition Start: 01/26/25 10:49 Freq: Status: Active Protocol: Document 01/26/25 11:26 [facility] (Rec: 01/26/25 11:36 [facility] [id number]) Physical Therapy Current Condition Current Condition Evaluation Date 01/26/25 Treatment Diagnosis CHF, Flu A M3 PT-IP Subjective Start: 01/26/25 10:49 Freq: Status: Active Protocol: Document 01/26/25 11:26 [facility] (Rec: 01/26/25 11:36 [facility] [id number]) Subjective Physical Therapy Visit Type Type Initial Evaluation Visit Start Time 11:00 Visit Stop Time 11:[address] HELPER Vis[address] 0 M4 PT-IP Mobility and Gait Start: 01/26/25 10:49 Freq: Status: Active Protocol: Document 01/26/25 11:26 [facility] (Rec: 01/26/25 11:36 [facility] [id number]) PT-Bed Mobility Assessment Supine to Sit Supine to Sit Standby Assistance,Bedrails Sit to Supine Sit to Supine Standby Assistance,Bedrails Scooting Scooting to Edge of Bed Standby Assistance Scooting Up and Down in Bed Standby Assistance PT-Transfer Assessment Sit to and From Stand Sit to and from Stand Contact Guard Assistance,Use of Upper Extremities Equipment Transfer Assistive Device Gait Belt,Front Wheeled Walker Orthotic/Prosthetic Devices or Brace: No Comments Mobility Comments Pt SBA for in/out of bed but requires use of bed rails to adjust in bed and scoot fwd to EOB. Sit to stand CGA. Pt amb w/FWW 5ft then turned and amb 5ft on 2 L O2 which dropped to 86% and pt sat on elevated BSC CGA. Prior to sitting, pt had 1 LOB requiring Min A to regain balance. cues needed for breathing throughout and pt was unable to manage his own O2 cords. [facility]HW[address] PAINTER HELPER student managed O2 cords for pt and pt cued for directions to turn. Pt stood and amb 7ft w/FWW CGA and O2 dropped to 76% so pt instructed to go to bed and SBA for into bed w/use of rail . Pt left w/call light in reach and RN was informed pt in bed and ready for BIPAP. Gait Assessment Gait Gait Assistance Required: Contact Guard Assist Distance (Feet) 12 Able to Maintain Weight Bearing Status Yes During Gait Assistive Devices Assistive Device Gait Belt,Front Wheeled Walker Gait Deviations General Gait Pattern Decreased Stride Length, Decreased Feet Clearance, Flexed Trunk Factors Limiting Gait Function Factors Limiting Gait Function Decreased Activity Tolerance, Decreased Strength,Poor Balance,Respiratory Distress PT-Balance Assessment Sitting Balance and Reactions Static Sitting Balance Ability Good Dynamic Sitting Balance Ability Good Standing Balance and Reactions Static Standing Balance Ability Fair Dynamic Standing Balance Ability Fair Device Used FWW M5 PT-IP Objective Assessments Start: 01/26/25 10:49 Freq: Status: Active Protocol: Document 01/26/25 11:26 [facility] (Rec: 01/26/25 11:36 [facility] [id number]) Orientation Orientation/Cognition Level of Alertness Alert Language Function Ability No Deficits Noted Safety Awareness Understands Safety Issues Memory Description No Deficits Noted Strength Lower Extremity Strength Assessment Bilaterally Impaired Muscle Tone Muscle Tone WNL Yes M6 PT-IP Treatment Start: 01/26/25 10:49 Freq: Status: Active Protocol: Document 01/26/25 11:26 [facility]26[facility]25 [id number] Treatment Education Education Provided Safety M7 PT-IP Assessment and Plan Start: 01/26/25 10:49 Freq: Status: Active Protocol: Document 01/26/25 11:26 [facility] (Rec: 01/26/25 11[facility]36 [id number] PT Summary Assessment and Plan Potential Rehabilitation Potential Good Status of Condition at Evaluation Evolving Summary Impairments Strength,Balance,Bed Mobility, Transfers,Gait,Activity Tolerance Assessment Summary Pt presents w/flu A and CHF and multiple other co- morbities w/weakness and difficulty in walking. Activity tolerance is very limited and pt is unable to walk >5ft w/o significant drops in O2 even when on 2 L O2. He needs cues for turning w/use of cords and cords were managed for him throughout the session. He does appear to be much weaker than his baseline w/dec balance and 1 LOB noted during session. D/t dec activity tolerance, dec balance, weakness and need for further training w/cord management along w/energy conservation techniques, pt would benefit from skilled rehab prior to returning home in order to return to typical function and dec risk for falls upon return home. Goals Bed Mobility Goal Independent Transfer Goal Independent Gait Goal Independent Gait Distance 60ft w/LRAD Other Goals pt will be able to go up/down 2 steps w/rail indep Days to Meet Goals 8 Frequency of Treatment Frequency Of Treatment Once a Day Treatment Plan Physical Therapy Treatment Plan Bed Mobility Training,Transfer Training,Gait Training, Therapeutic Exercise,Balance Retraining,Discharge Planning, Neuromuscular Re-ed Other Recommendations and Next Treatment cont to work on activity Focus tolerance, functional mobility , ability to manage O2 cords Weight Bearing Status Weight Bearing Status Full Weight Bearing Recommendations To Nursing Amount of Assist Needed 1 Person Assist Discharge Recommendations PT Discharge Recommendations SNF Rehab Transportation Needs at Discharge Wheelchair/Cabulance
[2025-01-26] MEDS: FUROSEMIDE 40 MG/4 ML VIAL 80 MG IV (11:54)
--- NOTE | 2025-01-26 17:13 | DI.RAD.S_ITS ---
PROCEDURE: XR CHEST FOR PICC 1V INDICATIONS: picc placement COMPARISON: [facility], CR, XR CHEST 1V, 01/22/2025, 10:35. FINDINGS: PICC was placed by the intravenous therapy team from the left side. Fluoroscopic spot film demonstrates the tip of PICC projecting to the area of distal left brachiocephalic vein. IMPRESSION: Tip of PICC projects to the area of distal left brachiocephalic vein. Dictated by: Julio Rodriguez M.D. on 01/26/2025 at 18:08 Approved by: Julio Rodriguez M.D. on 01/26/2025 at 18:08
--- NOTE | 2025-01-26 18:39 | PC.NURSE ---
shift note: Pt alert and comfortable, cooperative with care throughout the shift, wearing bipap while sleeping. Dressing around suprapubic cath with dried blood. Old dressing removed carefully and site cleaned with chlorohexidine sponges. DSD applied. PICC line placed per ROMINA ESCOBEDO in [facility]. LAC IV dc'd.
[2025-01-26] MEDS: TRAZODONE 50 MG TABLET PO (20:27)
[2025-01-26] MEDS: ROPINIROLE 1 MG TABLET 2 MG PO (20:27)
[2025-01-27] VITALS (10 sets, daily range): BP systolic 137–144; BP diastolic 65–77; PULSE 87–109; RESP 10–24; TEMP 36.1–37; O2SAT 93–100
[2025-01-27] MEDS: SUCRALFATE 1 GM TABLET PO ×4 (00:11→17:20)
[2025-01-27] MEDS: FUROSEMIDE 40 MG/4 ML VIAL 80 MG IV (00:11)
[2025-01-27 05:11] LABS: Alanine Aminotransferase 380 IU/L (<50); Albumin 3.6 g/dL (3.5-5.0); Albumin Globulin Ratio 0.9 (1.0-2.8); Alkaline Phosphatase 93 U/L (38-126); Aspartate Aminotransferase 64 IU/L (17-59); BUN Creatinine Ratio 30.3 (6-22); Blood Urea Nitrogen 54 mg/dL (9-20); Calcium 8.7 mg/dL (8.4-10.2); Carbon Dioxide 39 mmol/L (22-32); Chloride 93 mmol/L (98-107); Estimated Glomerular Filt Rate 41 mL/min (>60); Globulin 4.1 g/dL (1.7-4.1); Glucose 129 mg/dL (80-110); HEMOLYSIS 26 (0-50); Potassium 3.1 mmol/L (3.4-5.1); Sodium 138 mmol/L (137-145); Total Protein 7.7 g/dL (6.3-8.2)
[2025-01-27 05:23] LABS: Magnesium 1.9 mg/dL (1.6-2.3)
[2025-01-27] MEDS: PANTOPRAZOLE DR 40 MG TABLET PO (05:29)
--- NOTE | 2025-01-27 06:44 | P.PN_ITS ---
Subjective Subjective Date Patient Seen: 01/27/25 Time Patient Seen: 06:44 Interval history: Pretty much uneventful day yesterday Patient up with physical therapy he was able to move some. Had a pretty dramatic drop in oxygen saturation with any activity 2-1/2 L of urine out yesterday Labs show potassium low again, renal function with creatinine improved. Creatinine probably at baseline. Transaminases continue slow steady improvement nearing normal PICC line placed yesterday as patient will need to continue on IV antibiotics upon discharge to treat his Pseudomonas bacteremia (7 days of IV antibiotics will complete on January 31) PT yesterday recommended residential placement which patient initially I guess was not opposed to, but this morning is adamant he does not want to go to residential Exam Vital Signs (past 8 hours): - 01/26/25 23:00 01/27/25 00:00 01/27/25 03:00 Temperature 98.0 F Pulse Rate 100 H Respiratory Rate 19 Blood Pressure 137/65 137/65 137/65 Pulse Oximetry 93 Oxygen Flow Rate 2 Fraction of Inspired Oxygen 0.25 0.25 01/27/25 04:00 Temperature 97.7 F Pulse Rate 101 H Respiratory Rate 24 Blood Pressure Pulse Oximetry 96 Oxygen Flow Rate 2 Fraction of Inspired Oxygen Fraction of Inspired Oxygen 0.25 SaO2/FiO2 Ratio 335 Oxygen Delivery Method Nasal Cannula,BiPAP Oxygen Flow Rate 2 Objective Labs 01/23/25 04:50 01/27/25 04:22 Labs: Laboratory Results - last 24 hr 01/27/25 04:22 Sodium 138 Potassium 3.1 L Chloride 93 L Carbon Dioxide 39 H BUN 54 H Creatinine 1.78 H Estimated GFR 41 L BUN/Creatinine Ratio 30.3 H Glucose 129 H Calcium 8.7 Magnesium 1.9 Total Bilirubin 1.0 AST 64 H ALT 380 H Alkaline Phosphatase 93 Total Protein 7.7 Albumin 3.6 Globulin 4.1 Albumin/Globulin Ratio 0.9 L [facility] Medical History Oxygen dependent BMI 50.0-59.9, adult (08/2024) Sepsis (06/2023) Suprapubic catheter dysfunction Sinus tachycardia Chronic renal failure, stage 3a Acquired buried penis Urinary retention Urinary incontinence Iron deficiency Polyneuropathy, unspecified Anemia of chronic disease Mixed hyperlipidemia Eczema (~1996) Restless leg syndrome (~2013) Tinnitus (~1972) Recurrent sinusitis (~2007) Frequent UTI (~2018) Pancreatitis (~1995) Obstructive sleep apnea of adult (~2013) History of kidney stones Phimosis Lower urinary tract symptoms History of prostate cancer (~2016) Chronic venous insufficiency (04/10/16) Restrictive lung disease (08/16/15) Primary insomnia (08/16/15) Morbid obesity (08/16/15) 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 Acute hypoxic respiratory failure-continues to slowly improve. Still desaturate with any activity. Continue therapies below 2. Acute congestive heart failure-continue with parental diuretic therapy this morning, switch to oral diuretics after this morning's IV dose. Renal function at baseline with slowly rising BUN now. 3. Acute influenza A-this is a component I think to his overall respiratory distress as well. Has completed his Tamiflu 4. Acute hepatitis-numbers continue to improve, imaging unremarkable. Again think a combination of passive congestion maybe the influenza. No new concerns 5. Acute kidney injury on top of chronic renal failure stage 3 a-probably at baseline at this point. Rising BUN suggest we can reduce diuresis a bit, in my opinion. Replace potassium aggressively with both parental and increased oral dosing 6. Cardiac-hemodynamically stable. Echo basically unchanged from previous. Expected (given his body habitus etcetera) findings of probably early cor pulmonale 7. Bladder outlet obstruction with chronic catheterization-patient was new suprapubic catheter placed on January 20. Growing Pseudomonas consistent with prior urine cultures. Current antibiotic therapy is appropriate. Also grew staph epidermidis which he was likely a contaminant and not present in the second bottle. Will plan for least 7 days total of appropriate antibiotic therapy, which will complete on January 31 given that we did not switch to ceftazidime until the 25 of January 8. Morbid obesity-obviously patient's size he was a contributing factor to any of the above issues including his inability to breathe on his back he was restrictive lung disease. Also has contributed greatly to his bladder outlet obstructive process requiring procedures as noted. 9. Disposition-patient was felt to require residential yesterday by Physical therapy. He initially seemed accepting of that but he was not this morning. He is not medically ready for discharge today because of electrolyte and other issues will see how he does with physical therapy today. It maybe come more clear whether not he really is safe to go home or not with the additional time. He needs additional time on IV antibiotics in any event as above. 10. Hyperglycemia-better without the corticosteroids. Continue to monitor for now Overall tremendously improved, anticipate ready for discharge to residential as soon as tomorrow the 28 of January assuming accepting facility can be identified Time-Based Coding :: [TOTAL MINUTES] spent with patient and on the chart (including review of chart, obtaining history, exam, reviewing outside data, placing orders, documenting exam and treatment plan, and counseling patient) on [DATE]. Quality VTE Deep Vein Thrombosis/Pulmonary Embolism Present on Admission: No PROFEE [employer] Document charge(s): Yes Charge Codes Subsequent inpatient/observation care: [id number]
[2025-01-27] MEDS: INSULIN LISPRO 100 UNIT/ML 3ML VIAL SUBCUT ×3 (07:44→16:46)
[2025-01-27] MEDS: POTASSIUM CHLORIDE IN WATER 10 MEQ/100 ML PIGGYBACK 100 MEQ IV ×6 (07:44→12:52)
[2025-01-27] MEDS: POTASSIUM CHLORIDE 20 MEQ TAB 40 MEQ PO ×2 (07:44→16:47)
[2025-01-27] MEDS: DULOXETINE 30 MG CAPSULE PO (08:37)
[2025-01-27] MEDS: ENOXAPARIN 40 MG/0.4 ML SYRINGE SUBCUT ×2 (08:37→20:39)
[2025-01-27] MEDS: SODIUM CHLORIDE 0.9% FLUSH 10 ML IV ×2 (08:39→20:40)
--- NOTE | 2025-01-27 09:12 | OT.IPNOTE ---
Pt states did not sleep well last night and wanting to sleep. Pt states now wanting to go home when medically stable and have home health. Pt states physician states he will be in the hospital until Thursday for IV needs.
--- NOTE | 2025-01-27 11:50 | PT.IPTN ---
Current Diagnoses Acute and chronic respiratory failure, unspecified whether with hypoxia or hypercapnia (01/22/25) Physical Therapy Treatment Note M2 PT-IP Current Condition Start: 01/26/25 10:49 Freq: Status: Active Protocol: Document 01/26/25 11:26 [facility] (Rec: 01/26/25 11:36 [facility] [id number]) Physical Therapy Current Condition Current Condition Evaluation Date 01/26/25 Treatment Diagnosis CHF, Flu A M3 PT-IP Subjective Start: 01/26/25 10:49 Freq: Status: Active Protocol: Document 01/27/25 11:50 AB (Rec: 01/27/25 13:10 AB [id number]) Subjective Physical Therapy Visit Type Type Treatment Note Visit Start Time 11:50 Visit Stop Time 12:20 Number of PATIENT SUPPORT SPECIALIST Visits 0 Physical Therapy Visit Comments Patient Comments agreeable to do PT M4 PT-IP Mobility and Gait Start: 01/26/25 10:49 Freq: Status: Active Protocol: Document 01/27/25 11:50 AB (Rec: 01/27/25 13:10 AB [id number]) PT-Transfer Assessment Sit to and From Stand Sit to and from Stand Standby Assistance,1 Person Assistance,Use of Upper Extremities Equipment Transfer Assistive Device Gait Belt,Front Wheeled Walker Orthotic/Prosthetic Devices or Brace: No Comments Mobility Comments pt sitting on the chair and agreeable to do PT. O2 sat resting with 2L/min O2: 96%. O2 sat resting at RA: 95-96%. sit to stand SBA and ambulated in room using FWW SBA ~ 50 ft . slow paced waddling gait. increase LLE ER. pt sat back on chair. O2 sat checked: 95% but decreased to ~ 87% after a few seconds. cued for deep breathing and O2 sat increased to 91-92% at RA. pt rested and agreed to walk again. pt ambulated another 50 ft using FWW SBA. O2 sat: 87-88% and recovered to 91% in ~ 5 sec. positioned pt on the chair and set up for lunch. call light within reach. Gait Assessment Gait Gait Assistance Required: Standby Assistance Distance (Feet) 50 Able to Maintain Weight Bearing Status Yes During Gait Assistive Devices Assistive Device Gait Belt,Front Wheeled Walker Orthotic/Prosthetic Devices or Brace: No Gait Deviations General Gait Pattern Decreased Stride Length, Decreased Feet Clearance,Wide Based Gait Factors Limiting Gait Function Factors Limiting Gait Function Decreased Activity Tolerance, Decreased Strength,Poor Balance M5 PT-IP Objective Assessments Start: 01/26/25 10:49 Freq: Status: Active Protocol: Document 01/26/25 11:26 [facility] (Rec: 01/26/25 11:36 [facility] [id number]) Orientation Orientation/Cognition Level of Alertness Alert Language Function Ability No Deficits Noted Safety Awareness Understands Safety Issues Memory Description No Deficits Noted Strength Lower Extremity Strength Assessment Bilaterally Impaired Muscle Tone Muscle Tone WNL Yes M6 PT-IP Treatment Start: 01/26/25 10:49 Freq: Status: Active Protocol: Document 01/27/25 11:50 AB (Rec: 01/27/25 13:10 AB [id number]) Physical Therapy Treatment Education Education Provided Safety M7 PT-IP Assessment and Plan Start: 01/26/25 10:49 Freq: Status: Active Protocol: Document 01/27/25 11:50 AB (Rec: 01/27/25 13:10 AB [id number]) PT Summary Assessment and Plan Potential Rehabilitation Potential Fair Summary Impairments Pain,ROM,Strength,Balance, Coordination,Sensation,Bed Mobility,Transfers,Gait, Activity Tolerance Progress Towards Goals Slow Progress due to Medical Issues,Slow Progress due to Activity Tolerance Assessment Summary pt improving slowly with mobility and able to ambulate using a FWW ~ 50 ft x 2 requiring SBA. O2 sat at RA decreases to ~ 87% but recovered to 91% in a few seconds. Recommending use of FWW at this time and pt agreed . pt lives alone but has caregivers that comes in 5days /week. will continue to assess progress. pt will benefit from HHPT. Goals Bed Mobility Goal Independent Transfer Goal Independent Gait Goal Independent Gait Distance 60ft w/LRAD Other Goals pt will be able to go up/down 2 steps w/rail indep Days to Meet Goals 8 Frequency of Treatment Frequency Of Treatment Once a Day Treatment Plan Physical Therapy Treatment Plan Bed Mobility Training,Transfer Training,Gait Training, Therapeutic Exercise,Balance Retraining,Discharge Planning, Neuromuscular Re-ed Recommendations To Nursing Amount of Assist Needed 1 Person Assist Discharge Recommendations PT Discharge Recommendations Home with Assistance,Home Health Transportation Needs at Discharge Private Vehicle,Wheelchair/ Cabulance
--- NOTE | 2025-01-27 14:41 | CM.DPNOTE ---
DCP Cont [facility] can accept for admission today, insurance auth is in place. Therapies continue to recommend SNF. Updated Dr Goldstein; patient is not medically stable for discharge today. In addition, patient is adamantly refusing SNF stay. Patient will need IV abx until 01/31 and is not a good candidate for home infusion due to physical limitations. Discussed the potential for insurance denial for INPT stay w/Dr Goldstein. Discussed same in multidisciplinary rounds with CM dept manager review Lenora. Updated Nina at [facility]. Insurance auth is only good through Monday 01/29 and [facility] cannot accept until Tuesday 01/30. If patient remains here Thursday and continues to need SNF, Nina is willing to re review and attempt another INS auth. Plan: Discharge home 01/31 w/HH, family and caregiver(s) is likely. CM team will plan to follow clinical course closely. TOYIN
[2025-01-27] MEDS: FUROSEMIDE 40 MG TABLET PO (16:47)
[2025-01-27] MEDS: TRAZODONE 50 MG TABLET PO (20:39)
[2025-01-27] MEDS: HYDROCODONE/ACET 5/325 TABLET 1 TAB PO (20:39)
[2025-01-27] MEDS: ROPINIROLE 1 MG TABLET 2 MG PO (20:39)
[2025-01-28 05:07] VITALS: PULSE 80; RESP 10; RESP 21; O2SAT 96
[2025-01-28] MEDS: SUCRALFATE 1 GM TABLET PO ×3 (06:52→17:10)
[2025-01-28] MEDS: PANTOPRAZOLE DR 40 MG TABLET PO (06:53)
[2025-01-28] MEDS: INSULIN LISPRO 100 UNIT/ML 3ML VIAL SUBCUT ×3 (07:55→16:44)
[2025-01-28 08:00] VITALS: PULSE 100; RESP 20; TEMP 36.6; O2SAT 94
[2025-01-28] MEDS: POTASSIUM CHLORIDE 20 MEQ TAB 40 MEQ PO ×2 (08:02→16:23)
[2025-01-28] MEDS: DULOXETINE 30 MG CAPSULE PO (08:03)
[2025-01-28] MEDS: ENOXAPARIN 40 MG/0.4 ML SYRINGE SUBCUT ×2 (08:03→20:28)
[2025-01-28] MEDS: FUROSEMIDE 40 MG TABLET PO ×2 (08:03→16:23)
[2025-01-28] MEDS: SODIUM CHLORIDE 0.9% FLUSH 10 ML IV ×2 (08:04→20:27)
--- NOTE | 2025-01-28 09:22 | CM.DPNOTE ---
DCP note CARPENTRY INSTRUCTOR reviewed EMR per chart review, pt had initially planned on dc to [facility] for SNF stay to finish course of ABX. since refused. plan is to continue IV abx until 01/31 and then dc home with CGs and HH. per chart review/previous CM notes, pt is a poor candidate for home infusions due to physical limitations. CARPENTRY INSTRUCTOR met with pt in room. introduced self and role. pt confirms refusing SNF stay. preference is home with HH, hx of [facility]. preference to resume with them. denies other CM/DCP needs or questions at this time. CARPENTRY INSTRUCTOR emailed Kathie at [facility] initial referral information. order needed. f2f needed. CM team will continue to update [facility]/Nina Thursday with pt's change of preference, will keep referral open in case pt changes mind again for SNF for mobility concerns P: anticipate dc home with CGs and [facility] pending acceptance. will continue to follow closely for DCP coordination PATIENCE Leonardo
[2025-01-28 09:54] LABS: BUN Creatinine Ratio 28.9 (6-22); Blood Urea Nitrogen 48 mg/dL (9-20); Calcium 8.7 mg/dL (8.4-10.2); Carbon Dioxide 35 mmol/L (22-32); Chloride 95 mmol/L (98-107); Estimated Glomerular Filt Rate 44 mL/min (>60); Glucose 157 mg/dL (80-110); HEMOLYSIS < 15 (0-50); Potassium 3.6 mmol/L (3.4-5.1); Sodium 135 mmol/L (137-145)
[2025-01-28 12:00] VITALS: BP 129/66; PULSE 95; RESP 18; O2SAT 97
--- NOTE | 2025-01-28 15:35 | P.PN_ITS ---
Subjective Subjective Date Patient Seen: 01/28/25 Time Patient Seen: 15:35 Interval history: Patient seen in [facility] for Dr. Goldstein. Reviewed chart and workup and clinic chart. Patient is doing well today. His strength is improving. He still is requiring oxygen via nasal cannula at 2 L to maintain O2 sats. Patient was not on home oxygen prior to admission. Patient states however he has had for quite some time periods of low sats into the 80s really on a daily basis so question if there isn't chronic hypoxia. Patient without history of smoking or lung disease. Patient was admitted with acute respiratory failure but suspect probable underlying chronic respiratory failure. He was treated with Tamiflu for influenza. He was found to have Pseudomonas growing in 1 of 2 of his blood cultures. He is currently being treated for that and will require 7 days total of IV antibiotics which will end on the 31 of January. Patient has had hypokalemia but that is improving. IV diuretics were switched to p.o. and he was just on p.o. potassium today. He received K riders yesterday. Twelve point review of systems is otherwise negative Exam Vital Signs (past 8 hours): - 01/28/25 08:00 01/28/25 12:00 Temperature 97.8 F Pulse Rate 100 H 95 H Respiratory Rate 20 18 Blood Pressure 129/66 Pulse Oximetry 94 97 Oxygen Flow Rate 2 2 Fraction of Inspired Oxygen 0.25 SaO2/FiO2 Ratio 335 Oxygen Delivery Method Nasal Cannula Oxygen Flow Rate 2 Narrative Exam Narrative: Patient is alert and oriented x3 though states he is very tired often falling asleep during the day HEENT is unremarkable. Mucous membranes moist and pink without any mucosal lesions Neck: Supple Chest: Clear to auscultation with decreased breath sounds bibasilar Cor: Regular rate and rhythm with distant S1-S2 Abdomen: Obese, bowel sounds, soft Extremities: no significant edema. Patient has hemosiderin deposit in and chronic venous stasis changes of the skin bilaterally Neurologic exam nonfocal Objective Labs 01/23/25 04:50 01/28/25 09:30 Labs: Laboratory Results - last 24 hr 01/28/25 09:30 Sodium 135 L Potassium 3.6 Chloride 95 L Carbon Dioxide 35 H BUN 48 H Creatinine 1.66 H Estimated GFR 44 L BUN/Creatinine Ratio 28.9 H Glucose 157 H Calcium 8.7 PFSH Medical History Oxygen dependent BMI 50.0-59.9, adult (08/2024) Sepsis (06/2023) Suprapubic catheter dysfunction Sinus tachycardia Chronic renal failure, stage 3a Acquired buried penis Urinary retention Urinary incontinence Iron deficiency Polyneuropathy, unspecified Anemia of chronic disease Mixed hyperlipidemia Eczema (~1996) Restless leg syndrome (~2013) Tinnitus (~1972) Recurrent sinusitis (~2007) Frequent UTI (~2017) Pancreatitis (~1995) Obstructive sleep apnea of adult (~2013) History of kidney stones Phimosis Lower urinary tract symptoms History of prostate cancer (~2016) Chronic venous insufficiency (04/10/16) Restrictive lung disease (08/16/15) Primary insomnia (08/16/15) Morbid obesity (08/16/15) 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 Acute hypoxic respiratory failure-continues to slowly improve. Due to influenza, status post treatment. Question chronic hypoxemia. Will likely need further workup as outpatient and likely need oxygen at home. We will continue with same oxygen support and RT. And continue with same diuresis 2. Acute congestive heart failure-appears to be stable with oral diuretics. Renal function at baseline with slowly rising BUN now. Will reassess in a.m.. Continue with supportive oxygen 3. Acute influenza A-this is a component I think to his overall respiratory distress as well. Has completed his Tamiflu 4. Acute hepatitis-numbers continue to improve, imaging unremarkable. Again think a combination of passive congestion maybe the influenza. No new concerns 5. Acute kidney injury on top of chronic renal failure stage 3 a-probably at baseline at this point. Kidney function improving. Will continue to monitor recheck labs tomorrow 6. Cardiac-hemodynamically stable. Echo basically unchanged from previous. Expected (given his body habitus etcetera) findings of probably early cor pulmonale 7. Bladder outlet obstruction with chronic catheterization-patient was new suprapubic catheter placed on January 20. Growing Pseudomonas consistent with prior urine cultures. Current antibiotic therapy is appropriate. Also grew staph epidermidis which he was likely a contaminant and not present in the second bottle. Will plan for least 7 days total of appropriate antibiotic therapy, which will complete on January 31 given that we did not switch to ceftazidime until the 25 of January. Continue same outpatient treatment 8. Morbid obesity-obviously patient's size he was a contributing factor to any of the above issues including his inability to breathe on his back he was restrictive lung disease. Also has contributed greatly to his bladder outlet obstructive process requiring procedures as noted. 9. Disposition-patient was felt to require senior care yesterday by Physical therapy. He initially seemed accepting of that but he was not this morning. He is not medically ready for discharge today because of electrolyte and other issues will see how he does with physical therapy today. Anticipate discharge home after completion of IV antibiotics 10. Hyperglycemia-better without the corticosteroids. Continue to monitor for now 11. Hypokalemia improved now just on oral potassium. Plan: Will recheck in a.m. 56 minute was spent with patient discussing with nursing, physician, reviewing chart, meeting with patient, formulating a plan and documentation Time-Based Coding :: [TOTAL MINUTES] spent with patient and on the chart (including review of chart, obtaining history, exam, reviewing outside data, placing orders, documenting exam and treatment plan, and counseling patient) on [DATE]. Quality VTE Deep Vein Thrombosis/Pulmonary Embolism Present on Admission: No
[2025-01-28 15:54] VITALS: BP 129/66; PULSE 92; RESP 20; O2SAT 98
[2025-01-28] MEDS: HYDROCODONE/ACET 5/325 TABLET 1 TAB PO (16:23)
[2025-01-28 20:10] VITALS: BP 132/60; PULSE 98; RESP 21; TEMP 35.8; O2SAT 96
[2025-01-28] MEDS: TRAZODONE 50 MG TABLET PO (20:28)
[2025-01-28] MEDS: ROPINIROLE 1 MG TABLET 2 MG PO (20:28)
[2025-01-28 23:02] VITALS: BP 122/80; PULSE 84; RESP 10; RESP 27; O2SAT 96
[2025-01-29] VITALS (10 sets, daily range): BP systolic 127–151; BP diastolic 59–76; PULSE 85–109; RESP 10–30; TEMP 36.1–37.2; O2SAT 91–98
[2025-01-29 05:20] LABS: Add Manual Diff / Slide Review NO; Basophils Absolute Auto 0 /uL (0-100); Basophils Percent Auto 0.6 % (0-2); Eosinophils Absolute Auto 300 /uL (0-450); Eosinophils Percent Auto 4.7 % (2-4); Hematocrit 36.8 % (41-53); Hemoglobin 12.1 g/dL (13.5-17.5); Lymphocytes Absolute Auto 1100 /uL (1100-4500); Lymphocytes Percent Auto 19.3 % (25-40); Mean Corpuscular HGB Conc 32.8 % (30-36); Mean Corpuscular Hemoglobin 31.6 PG (26-34); Mean Corpuscular Volume 96.4 fL (80-100); Monocytes Absolute Auto 600 /uL (0-900); Monocytes Percent Auto 10.5 % (3-14); Neutrophils Absolute Auto 3800 /uL (1500-7000); Neutrophils Percent Auto 64.9 % (50-75); Platelet Count 91 X10^3/uL (150-400); Red Blood Cell Count 3.82 X10^6/uL (4.5-5.9); White Blood Cell Count 5.8 X10^3/uL (4.5-11.0)
[2025-01-29 05:28] LABS: Blood Urea Nitrogen 44 mg/dL (9-20); Calcium 8.9 mg/dL (8.4-10.2); Carbon Dioxide 35 mmol/L (22-32); Chloride 96 mmol/L (98-107); Estimated Glomerular Filt Rate 43 mL/min (>60); Glucose 143 mg/dL (80-110); HEMOLYSIS < 15 (0-50); Sodium 135 mmol/L (137-145)
[2025-01-29] MEDS: PANTOPRAZOLE DR 40 MG TABLET PO (06:17)
[2025-01-29] MEDS: SUCRALFATE 1 GM TABLET PO ×3 (06:17→16:45)
[2025-01-29] MEDS: SODIUM CHLORIDE 0.9% FLUSH 10 ML IV ×2 (06:18→20:44)
[2025-01-29] MEDS: INSULIN LISPRO 100 UNIT/ML 3ML VIAL SUBCUT ×3 (07:51→16:40)
[2025-01-29] MEDS: POTASSIUM CHLORIDE 20 MEQ TAB 40 MEQ PO ×2 (07:54→16:45)
[2025-01-29] MEDS: FUROSEMIDE 40 MG TABLET PO ×2 (07:54→16:45)
[2025-01-29] MEDS: DULOXETINE 30 MG CAPSULE PO (09:06)
--- NOTE | 2025-01-29 11:44 | PT.IPTN ---
Current Diagnoses Acute and chronic respiratory failure, unspecified whether with hypoxia or hypercapnia (01/22/25) Physical Therapy Treatment Note M2 PT-IP Current Condition Start: 01/26/25 10:49 Freq: Status: Active Protocol: Document 01/26/25 11:26 [facility] (Rec: 01/26/25 11:36 [facility] [id number]) Physical Therapy Current Condition Current Condition Evaluation Date 01/26/25 Treatment Diagnosis CHF, Flu A M3 PT-IP Subjective Start: 01/26/25 10:49 Freq: Status: Active Protocol: Document 01/29/25 11:23 MB (Rec: 01/29/25 11:44 MB Desktop) Subjective Physical Therapy Visit Type Type Treatment Note Visit Start Time 11:23 Visit Stop Time 11:33 Number of COAL DUMPING EQUIPMENT OPERATOR Visits 0 Physical Therapy Visit Comments Patient Comments Pt is agreeable to PT. Therapy Pain Assessment Pain When Pain Assessed At Rest Pain Present Pain Present Denied Pain M4 PT-IP Mobility and Gait Start: 01/26/25 10:49 Freq: Status: Active Protocol: Document 01/29/25 11:23 MB (Rec: 01/29/25 11:44 MB Desktop) PT-Bed Mobility Assessment Supine to Sit Supine to Sit Independent,Head of Bed Elevated,Bedrails Scooting Scooting to Edge of Bed Independent PT-Transfer Assessment Sit to and From Stand Sit to and from Stand Standby Assistance,1 Person Assistance,Use of Upper Extremities Equipment Transfer Assistive Device Gait Belt,Front Wheeled Walker Orthotic/Prosthetic Devices or Brace: No Transfers Transfer Destination Chair Transfer Technique Ambulation Transfer Ability Level of Assist Standby Assistance Comments Mobility Comments O2 sats on 1L decrease to 90% with activity and he reports 3 /4 Dyspnea scale with short gait in room and appears SOB Gait Assessment Gait Gait Assistance Required: Standby Assistance Distance (Feet) 60 Able to Maintain Weight Bearing Status Yes During Gait Assistive Devices Assistive Device Gait Belt,Front Wheeled Walker Orthotic/Prosthetic Devices or Brace: No Gait Deviations General Gait Pattern Decreased Stride Length, Decreased Feet Clearance,Wide Based Gait Factors Limiting Gait Function Factors Limiting Gait Function Decreased Activity Tolerance PT-Balance Assessment Sitting Balance and Reactions Static Sitting Balance Ability Good Dynamic Sitting Balance Ability Good Standing Balance and Reactions Static Standing Balance Ability Good Dynamic Standing Balance Ability Good Device Used FWW M5 PT-IP Objective Assessments Start: 01/26/25 10:49 Freq: Status: Active Protocol: Document 01/26/25 11:26 [facility] (Rec: 01/26/25 11:36 [facility] [id number]) Orientation Orientation/Cognition Level of Alertness Alert Language Function Ability No Deficits Noted Safety Awareness Understands Safety Issues Memory Description No Deficits Noted Strength Lower Extremity Strength Assessment Bilaterally Impaired Muscle Tone Muscle Tone WNL Yes M6 PT-IP Treatment Start: 01/26/25 10:49 Freq: Status: Active Protocol: Document 01/27/25 11:50 AB (Rec: 01/27/25 13:10 AB [id number]) Physical Therapy Treatment Education Education Provided Safety M7 PT-IP Assessment and Plan Start: 01/26/25 10:49 Freq: Status: Active Protocol: Document 01/29/25 11:23 MB (Rec: 01/29/25 11:44 MB Desktop) PT Summary Assessment and Plan Potential Rehabilitation Potential Fair Status of Condition at Evaluation Evolving Summary Impairments Strength,Balance,Bed Mobility, Transfers,Gait,Activity Tolerance Progress Towards Goals Slow Progress due to Activity Tolerance Assessment Summary Pt con't to move well in the room on 1L O2. He does get SOB and reports 3/4 Dyspnea Scale . Left up in chair with feet on floor, call vines in reach and nsg clearance. Goals Bed Mobility Goal Independent Transfer Goal Independent Gait Goal Independent Gait Distance 80 Other Goals pt will be able to go up/down 2 steps w/rail indep Days to Meet Goals 5 Frequency of Treatment Frequency Of Treatment Once a Day Treatment Plan Physical Therapy Treatment Plan Bed Mobility Training,Transfer Training,Gait Training, Therapeutic Exercise,Balance Retraining,Discharge Planning, Neuromuscular Re-ed Other Recommendations and Next Treatment Take step into room to Focus practice Recommendations To Nursing Amount of Assist Needed 1 Person Assist Discharge Recommendations PT Discharge Recommendations Home with Assistance,Home Health Transportation Needs at Discharge Private Vehicle
[2025-01-29 14:07] LABS: Allen Test for ABG Passed? Positive; Base Excess ABG 5.5 mmol/L (-2-3); Blood Gas Collection Site Left Radial; Delivery System Cannula; HCO3 ABG 32 mmol/L (23-27); Oxygen Saturation ABG 97 % (95-100); PCO2 ABG 55.6 mmHg (35-45); PO2 ABG 90 mmHg (80-100); TCO2 ABG 32 mmol/L (23-27); pH ABG 7.37 (7.35-7.45)
--- NOTE | 2025-01-29 14:22 | P.PN_ITS ---
Subjective Subjective Date Patient Seen: 01/29/25 Time Patient Seen: 14:22 Interval history: Patient had an unremarkable night. He continues to be hypersomnolent stating that he really can not stay awake. Although he did have some trouble sleeping last night which he attributes to sleeping all day yesterday. He was getting up and moving around. He was switched to a low carb diet and states that he feels hungry and wishes she can have more food. He denies any chest pain or symptoms of shortness of breath. He is tolerating p.o. without any difficulty. He continues to have mild elevation in his blood sugars and requiring 1 unit of insulin each time he eats. He continues to be afebrile He continues on O2 2 L nasal cannula with O2 sats 96-100% He continues to use BiPAP at night 12 point review of systems is otherwise negative Exam Vital Signs (past 8 hours): - 01/29/25 07:00 01/29/25 08:00 01/29/25 12:00 Temperature 97.9 F Respiratory Rate 20 20 Blood Pressure 151/70 H 136/76 Pulse Oximetry 98 96 Oxygen Delivery Method Nasal Cannula Oxygen Flow Rate 2 2 Fraction of Inspired Oxygen 0.25 SaO2/FiO2 Ratio 335 Oxygen Delivery Method Nasal Cannula Oxygen Flow Rate 2 Narrative Exam Narrative: Patient is alert and oriented no apparent distress Neck: Supple without adenopathy Chest: Decreased breath sounds bibasilar. Otherwise no wheezing or rhonchi Cor: Regular rhythm with a rate in the high 90s. Distant S1-S2 Abdomen: Positive bowel sounds soft Extremity: No edema, pulses intact, chronic venous stasis changes Neurologic exam nonfocal Objective Labs 01/29/25 05:00 01/29/25 05:00 Labs: Laboratory Results - last 24 hr 01/29/25 01/29/25 05:00 14:01 WBC 5.8 RBC 3.82 L Hgb 12.1 L Hct 36.8 L MCV 96.4 D MCH 31.6 MCHC 32.8 RDW 18.0 H Plt Count 91 L Neut % (Auto) 64.9 Lymph % (Auto) 19.3 L [place] % (Auto) 10.5 Eos % (Auto) 4.7 H Baso % (Auto) 0.6 Neut # (Auto) 3800 Lymph # (Auto) 1100 [place] # (Auto) 600 Eos # (Auto) 300 Baso # (Auto) 0 ABG Sample Site Left radial ABG pH 7.37 ABG pCO2 55.6 H ABG pO2 90 ABG HCO3 32 H ABG Total CO2 32 H ABG O2 Saturation 97 ABG Base Excess 5.5 H Kt Test Positive O2 Delivery Device Cannula FiO2 % 28.0 % Sodium 135 L Potassium 4.0 Chloride 96 L Carbon Dioxide 35 H BUN 44 H Creatinine 1.69 H Estimated GFR 43 L BUN/Creatinine Ratio 26.0 H Glucose 143 H Calcium 8.9 PFSH Medical History Oxygen dependent BMI 50.0-59.9, adult (08/2024) Sepsis (06/2023) Suprapubic catheter dysfunction Sinus tachycardia Chronic renal failure, stage 3a Acquired buried penis Urinary retention Urinary incontinence Iron deficiency Polyneuropathy, unspecified Anemia of chronic disease Mixed hyperlipidemia Eczema (~1996) Restless leg syndrome (~2013) Tinnitus (~1972) Recurrent sinusitis (~2007) Frequent UTI (~2017) Pancreatitis (~1995) Obstructive sleep apnea of adult (~2013) History of kidney stones Phimosis Lower urinary tract symptoms History of prostate cancer (~2016) Chronic venous insufficiency (04/10/16) Restrictive lung disease (08/16/15) Primary insomnia (08/16/15) Morbid obesity (08/16/15) 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 Acute hypoxic respiratory failure-continues to slowly improve. Due to influenza, status post treatment. Question chronic hypoxemia. Will likely need further workup as outpatient and likely need oxygen at home. We will continue with same oxygen support and RT. And continue with same diuresis. However given patient's hypersomnolence and continuing on oxygen with O2 sats 96-100% we did ABG which shows pH of 7.37 and pCO2 of 55. We will go ahead and take the oxygen off and will monitor him and see if clinically he improves and maintain his O2 sats at 88% or higher. He may need oxygen at night and this may be the main problem. Reviewed echo as well which shows probably early development of cor pulmonale. 2. Acute congestive heart failure-appears to be stable with oral diuretics. Renal function at baseline, slightly improved from yesterday. Will reassess in am 3. Acute influenza A-this is a component I think to his overall respiratory distress as well. Has completed his Tamiflu. No further treatment indicated 4. Acute hepatitis-numbers continue to improve, imaging unremarkable. Will recheck in a.m.. 5. Acute kidney injury on top of chronic renal failure stage 3 a-probably at baseline at this point. Kidney function improving. Will continue to monitor recheck labs tomorrow 6. Cardiac-hemodynamically stable. Echo basically unchanged from previous. Expected (given his body habitus etcetera) findings of probably early cor pulmonale 7. Bladder outlet obstruction with chronic catheterization-patient was new suprapubic catheter placed on January 20. Growing Pseudomonas consistent with prior urine cultures. Current antibiotic therapy is appropriate. Also grew staph epidermidis which he was likely a contaminant and not present in the second bottle. Will plan for least 7 days total of appropriate antibiotic therapy, which will complete on January 31 given that we did not switch to ceftazidime until the 25 of January. 8. Morbid obesity-obviously patient's size he was a contributing factor to any of the above issues including his inability to breathe on his back he was restrictive lung disease. Also has contributed greatly to his bladder outlet obstructive process requiring procedures as noted. Continue with the same carbohydrate diet 9. Disposition-patient was felt to require prison yesterday by Physical therapy. He initially seemed accepting of that but he was not this morning. He is not medically ready for discharge today because of electrolyte and other issues will see how he does with physical therapy today. Anticipate discharge home after completion of IV antibiotics 10. Hyperglycemia-better without the corticosteroids. Continue to monitor for now. Receiving very low dose insulin. We will continue to monitor 11. Hypokalemia improved now just on oral potassium. Continues to be stable Plan: Will recheck in a.m. 12. Normocytic anemia suspect chronic disease, mild, stable. Will continue to follow workup as outpatient. 52 minute was spent with patient discussing with nursing, physician, reviewing chart, meeting with patient, formulating a plan and documentation Time-Based Coding :: [TOTAL MINUTES] spent with patient and on the chart (including review of chart, obtaining history, exam, reviewing outside data, placing orders, documenting exam and treatment plan, and counseling patient) on [DATE]. Quality VTE Deep Vein Thrombosis/Pulmonary Embolism Present on Admission: No
--- NOTE | 2025-01-29 14:40 | CM.DPC ---
DCP Cont: SW spoke with covering for the weekend and confirmed with PT and RN that pt has improved in his mobility for recommendation of home with HH. anticipates d/c home after final dose of IV abx on 01/31 this week. F2F completed for anticipated [facility] at d/c but not faxed yet. PATIENCE Boyd
[2025-01-29] MEDS: TRAZODONE 50 MG TABLET PO (20:43)
[2025-01-29] MEDS: ROPINIROLE 1 MG TABLET 2 MG PO (20:43)
[2025-01-29] MEDS: ENOXAPARIN 40 MG/0.4 ML SYRINGE SUBCUT (20:44)
[2025-01-30] VITALS (10 sets, daily range): BP systolic 124–152; BP diastolic 64–78; PULSE 94–107; RESP 10–26; TEMP 35.7–36.6; O2SAT 94–99
[2025-01-30] MEDS: HYDROCODONE/ACET 5/325 TABLET 1 TAB PO (01:42)
[2025-01-30 05:09] LABS: Add Manual Diff / Slide Review NO; Basophils Absolute Auto 0 /uL (0-100); Basophils Percent Auto 0.6 % (0-2); Eosinophils Absolute Auto 300 /uL (0-450); Eosinophils Percent Auto 6.5 % (2-4); Hematocrit 37.6 % (41-53); Hemoglobin 12.4 g/dL (13.5-17.5); Lymphocytes Absolute Auto 1400 /uL (1100-4500); Mean Corpuscular HGB Conc 32.9 % (30-36); Mean Corpuscular Hemoglobin 31.7 PG (26-34); Mean Corpuscular Volume 96.6 fL (80-100); Monocytes Absolute Auto 600 /uL (0-900); Monocytes Percent Auto 10.5 % (3-14); Neutrophils Absolute Auto 3000 /uL (1500-7000); Neutrophils Percent Auto 56.4 % (50-75); Platelet Count 123 X10^3/uL (150-400); Red Blood Cell Count 3.89 X10^6/uL (4.5-5.9); Red Cell Distribution Width 17.4 % (11.6-14.8); White Blood Cell Count 5.3 X10^3/uL (4.5-11.0)
[2025-01-30] MEDS: SUCRALFATE 1 GM TABLET PO ×4 (05:26→23:30)
[2025-01-30] MEDS: PANTOPRAZOLE DR 40 MG TABLET PO (05:26)
[2025-01-30 05:28] LABS: Alanine Aminotransferase 149 IU/L (<50); Albumin 3.5 g/dL (3.5-5.0); Alkaline Phosphatase 80 U/L (38-126); Aspartate Aminotransferase 42 IU/L (17-59); BUN Creatinine Ratio 24.7 (6-22); Bilirubin Total 0.7 mg/dL (0.2-1.3); Blood Urea Nitrogen 39 mg/dL (9-20); Carbon Dioxide 32 mmol/L (22-32); Chloride 99 mmol/L (98-107); Estimated Glomerular Filt Rate 47 mL/min (>60); Globulin 3.6 g/dL (1.7-4.1); Glucose 130 mg/dL (80-110); HEMOLYSIS < 15 (0-50); Potassium 4.2 mmol/L (3.4-5.1); Sodium 136 mmol/L (137-145); Total Protein 7.1 g/dL (6.3-8.2)
--- NOTE | 2025-01-30 07:27 | P.PN_ITS ---
Subjective Subjective Date Patient Seen: 01/30/25 Time Patient Seen: 07:27 Interval history: Pretty much uneventful weekend. Patient reported increased daytime somnolence, ABG was checked with pCO2 elevated consistent with possible mild hypercapnia secondary to perhaps successive oxygen replacement therapy. Oxygen has been discontinued while patient was awake up and around and he has been maintaining his oxygen saturations at rest anyway. With physical therapy yesterday he was at 90% with 1 L nasal cannula Lab work this morning unremarkable, renal function at baseline. Platelet count has rebounded up slightly to 123,000 Exam Vital Signs (past 8 hours): - 01/29/25 23:59 01/30/25 02:35 01/30/25 04:29 Temperature 98.9 F 97.9 F Pulse Rate 104 H 95 H Respiratory Rate 21 21 Blood Pressure 140/75 126/78 Pulse Oximetry 95 97 Fraction of Inspired Oxygen 25 25 25 01/30/25 05:42 Temperature Pulse Rate Respiratory Rate Blood Pressure Pulse Oximetry Fraction of Inspired Oxygen 25 Fraction of Inspired Oxygen 25 SaO2/FiO2 Ratio 335 Oxygen Delivery Method Room Air Oxygen Flow Rate 0 Objective Labs 01/30/25 04:00 01/30/25 04:00 Labs: Laboratory Results - last 24 hr 01/29/25 01/30/25 14:01 04:00 WBC 5.3 RBC 3.89 L Hgb 12.4 L Hct 37.6 L MCV 96.6 MCH 31.7 MCHC 32.9 RDW 17.4 H Plt Count 123 L Neut % (Auto) 56.4 Lymph % (Auto) 26.0 [place] % (Auto) 10.5 Eos % (Auto) 6.5 H Baso % (Auto) 0.6 Neut # (Auto) 3000 Lymph # (Auto) 1400 [place] # (Auto) 600 Eos # (Auto) 300 Baso # (Auto) 0 ABG Sample Site Left radial ABG pH 7.37 ABG pCO2 55.6 H ABG pO2 90 ABG HCO3 32 H ABG Total CO2 32 H ABG O2 Saturation 97 ABG Base Excess 5.5 H Kt Test Positive O2 Delivery Device Cannula FiO2 % 28.0 % Sodium 136 L Potassium 4.2 Chloride 99 Carbon Dioxide 32 BUN 39 H Creatinine 1.58 H Estimated GFR 47 L BUN/Creatinine Ratio 24.7 H Glucose 130 H Calcium 9.0 Total Bilirubin 0.7 AST 42 ALT 149 H Alkaline Phosphatase 80 Total Protein 7.1 Albumin 3.5 Globulin 3.6 Albumin/Globulin Ratio 1.0 [facility] Medical History Oxygen dependent BMI 50.0-59.9, adult (08/2024) Sepsis (06/2023) Suprapubic catheter dysfunction Sinus tachycardia Chronic renal failure, stage 3a Acquired buried penis Urinary retention Urinary incontinence Iron deficiency Polyneuropathy, unspecified Anemia of chronic disease Mixed hyperlipidemia Eczema (~1996) Restless leg syndrome (~2013) Tinnitus (~1972) Recurrent sinusitis (~2007) Frequent UTI (~2017) Pancreatitis (~1995) Obstructive sleep apnea of adult (~2013) History of kidney stones Phimosis Lower urinary tract symptoms History of prostate cancer (~2016) Chronic venous insufficiency (04/10/16) Restrictive lung disease (08/16/15) Primary insomnia (08/16/15) Morbid obesity (08/16/15) 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 Acute hypoxic respiratory failure-continues to slowly improve. Less desaturation with activity than has been previously. Continue with therapies as below. 2. Acute congestive heart failure-continue with oral diuretic therapy for now which I am going to continue has a baseline. 3. Acute influenza A-this is a component I think to his overall respiratory distress as well. Has completed his Tamiflu. Seems to be improving from a respiratory standpoint likely because his influenza has a improved as well. 4. Acute hepatitis-numbers continue to improve, now near normal. Will not plan to recheck 5. Acute kidney injury on top of chronic renal failure stage 3 a-back to baseline. Continue current diuretic therapy as above. 6. Cardiac-hemodynamically stable. Echo basically unchanged from previous. Expected (given his body habitus etcetera) findings of probably early cor pulmonale 7. Bladder outlet obstruction with chronic catheterization-patient was new suprapubic catheter placed on January 20. Growing Pseudomonas consistent with prior urine cultures. Current antibiotic therapy is appropriate. Also grew staph epidermidis which he was likely a contaminant and not present in the second bottle. Will plan for least 7 days total of appropriate antibiotic therapy, which will complete on January 31 given that we did not switch to ceftazidime until the 25 of January 8. Morbid obesity-obviously patient's size he was a contributing factor to any of the above issues including his inability to breathe on his back he was restrictive lung disease. Also has contributed greatly to his bladder outlet obstructive process requiring procedures as noted. 9. Disposition-patient planning to go home when ready for discharge. Likely will need home oxygen therapy at night and maybe up to 1 L with activity. Would not recommend oxygen replacement therapy at rest given the above numbers and discussion about possible mild hypercapnia etcetera. 10. Hyperglycemia-better without the corticosteroids. Continue to monitor for now Overall tremendously improved, needs to continue on parental antibiotic therapy for the Pseudomonas bacteremia until the 31 of January. Therefore may be ready for discharge home tomorrow on January 31, or perhaps February 01 Time-Based Coding :: [TOTAL MINUTES] spent with patient and on the chart (including review of chart, obtaining history, exam, reviewing outside data, placing orders, documenting exam and treatment plan, and counseling patient) on [DATE]. Quality VTE Deep Vein Thrombosis/Pulmonary Embolism Present on Admission: No [employer] Document charge(s): Yes Charge Codes Subsequent inpatient/observation care: [id number]
[2025-01-30] MEDS: POTASSIUM CHLORIDE 20 MEQ TAB 40 MEQ PO ×2 (08:10→17:05)
[2025-01-30] MEDS: FUROSEMIDE 40 MG TABLET PO ×2 (08:10→17:05)
[2025-01-30] MEDS: DULOXETINE 30 MG CAPSULE PO (08:10)
[2025-01-30] MEDS: ENOXAPARIN 40 MG/0.4 ML SYRINGE SUBCUT ×2 (08:10→20:47)
[2025-01-30] MEDS: SODIUM CHLORIDE 0.9% FLUSH 10 ML IV ×2 (08:11→20:47)
[2025-01-30] MEDS: INSULIN LISPRO 100 UNIT/ML 3ML VIAL SUBCUT ×3 (08:12→17:06)
--- NOTE | 2025-01-30 08:44 | PT.IPTN ---
Current Diagnoses Acute and chronic respiratory failure, unspecified whether with hypoxia or hypercapnia (01/22/25) Physical Therapy Treatment Note M2 PT-IP Current Condition Start: 01/26/25 10:49 Freq: Status: Active Protocol: Document 01/30/25 08:26 SP (Rec: 01/30/25 09:44 SP Laptop) Physical Therapy Current Condition Current Condition Evaluation Date 01/26/25 Treatment Diagnosis CHF, Flu A M3 PT-IP Subjective Start: 01/26/25 10:49 Freq: Status: Active Protocol: Document 01/30/25 08:26 SP (Rec: 01/30/25 09:44 SP Laptop) Subjective Physical Therapy Visit Type Type Treatment Note Visit Start Time 08:26 Visit Stop Time 08:44 Notes SPTA Anuja assisted with support as needed throughout tx while under supervision of ORACLE REPORTS DEVELOPER Yoana Vitals: seated EOB LUE BP 149/ 70 SaO2 97% on RA rested. SaO2 94% on RA after step mgt, SaO2 94% on 2L walk in hallway with mask donned. Number of ORACLE REPORTS DEVELOPER Visits 1 Physical Therapy Visit Comments Patient Comments Pt is agreeable to PT. M4 PT-IP Mobility and Gait Start: 01/26/25 10:49 Freq: Status: Active Protocol: Document 01/30/25 08:26 SP (Rec: 01/30/25 09:44 SP Laptop) PT-Bed Mobility Assessment Supine to Sit Supine to Sit Independent,Bedrails Scooting Scooting to Edge of Bed Independent PT-Transfer Assessment Sit to and From Stand Sit to and from Stand Standby Assistance,Use of Upper Extremities Equipment Transfer Assistive Device Gait Belt,Front Wheeled Walker Orthotic/Prosthetic Devices or Brace: No Transfers Transfer Destination Chair Transfer Technique Ambulation with FWW Transfer Ability Level of Assist Standby Assistance Comments Mobility Comments Pt completed sup>SL>sit with use bed rail HOB flat (same set up home), demonstrates heavy BUEs trunk right to sit due to bed little deflated challenge but able complete self. Sit<>stand and gait in room with FWW SBA via SPTA Anuja, pt complete 1 step mvt L HR and SPC on R CGA but required seated rest end of bed due to slight SOB and tiring, Mid90s on RA. Pt progressed gait into hallway approx 60 ft with FWW, provided SaO2 2L mid 90s during gait with cues for breath (mask donned). Pt returned to room chair, had call light and all needs including call light in reach before left room. Gait Assessment Gait Gait Assistance Required: Standby Assistance Distance (Feet) 60 Able to Maintain Weight Bearing Status Yes During Gait Assistive Devices Assistive Device Gait Belt,Front Wheeled Walker Orthotic/Prosthetic Devices or Brace: No Gait Deviations General Gait Pattern Wide Based Gait Factors Limiting Gait Function Factors Limiting Gait Function Decreased Activity Tolerance Stair Climbing Assessment Evaluation Level of Assist On Stairs Standby Assistance,Contact Guard Assistance Devices Stair Climbing Assistive Devices Straight Cane,Left Railing Technique/Endurance Stair Climbing Direction Ascend and Descend Stair Climbing Technique Step to Step Number of Steps Climbed 1 Stair Climbing Set # Repetitions (reps) 2 Comments Stair Climbing Comments Moderate UE WB support on rail and SPC, CGA>SBA for safety. PT-Balance Assessment Sitting Balance and Reactions Static Sitting Balance Ability Normal Dynamic Sitting Balance Ability Normal Standing Balance and Reactions Static Standing Balance Ability Normal Dynamic Standing Balance Ability Good Device Used FWW M5 PT-IP Objective Assessments Start: 01/26/25 10:49 Freq: Status: Active Protocol: Document 01/26/25 11:26 [facility] (Rec: 01/26/25 11:36 [facility] [id number]) Orientation Orientation/Cognition Level of Alertness Alert Language Function Ability No Deficits Noted Safety Awareness Understands Safety Issues Memory Description No Deficits Noted Strength Lower Extremity Strength Assessment Bilaterally Impaired Muscle Tone Muscle Tone WNL Yes M6 PT-IP Treatment Start: 01/26/25 10:49 Freq: Status: Active Protocol: Document 01/30/25 08:26 SP (Rec: 01/30/25 09:44 SP Laptop) Physical Therapy Treatment Education Education Provided Safety M7 PT-IP Assessment and Plan Start: 01/26/25 10:49 Freq: Status: Active Protocol: Document 01/30/25 08:26 SP (Rec: 01/30/25 09:44 SP Laptop) PT Summary Assessment and Plan Potential Rehabilitation Potential Fair Status of Condition at Evaluation Evolving Summary Impairments Strength,Balance,Bed Mobility, Transfers,Gait,Activity Tolerance Progress Towards Goals Slow Progress due to Activity Tolerance Assessment Summary Pt progressed well, SaO2 mid 90s on RA bed mobility, gait, 1 step mgt with L HR/SPC in room but SOB end tx during gait into hallway with FWW with mask donned, [employer] RE[employer]TS DEVELOPER provided trailing O2 tank/SPTA provided CGA/SBA, provided 2L and cues breath improved mid 90s when returned to room, SBA . Recommending HHPT available when medically cleared. Goals Bed Mobility Goal Independent Transfer Goal Independent Gait Goal Independent Gait Distance 80 Other Goals pt will be able to go up/down 2 steps w/rail indep Days to Meet Goals 5 Frequency of Treatment Frequency Of Treatment Once a Day Treatment Plan Physical Therapy Treatment Plan Bed Mobility Training,Transfer Training,Gait Training, Therapeutic Exercise,Balance Retraining,Discharge Planning, Neuromuscular Re-ed Recommendations To Nursing Amount of Assist Needed Standby Assistance Discharge Recommendations PT Discharge Recommendations Home with Assistance,Home Health Transportation Needs at Discharge Private Vehicle
--- NOTE | 2025-01-30 10:40 | DIET.CONS ---
Dietary Consultation Note Admission Date: 01/22/2025 12:54 Assessment: 69 y M admitted for resp failure, acute CHF, flu. Dietitian screened for LOS. EMR reviewed. Pt diuresis during stay. Recent recorded PO intakes all 100% and average recorded PO intakes during stay 70%. PMH of DM and CKD3. A1c 5.6% on 01/25/25 Ht: 172.72 cm Wt: 163.5 kg BMI: 56.6 UBW: 171.685 kg on 01/13/25 (-4% wt loss in 1 month, non-severe, pt on lasix), 172.819 kg on 12/02/24 Last BM: 01/29/25 (01/29/25 20:50) MNA: 14 Alfredo Score: 21 Diet: 01/27/25 Lunch Carbohydrate Consistent Diet Diet Modifications: Carbohydrate level: Large (4 CHO) Bedtime snack: No Reflex DM orders: No Food Texture: Level 7 - Regular Liquid Consistency: Level 0 - Thin Nutrition Percent Meal Consumed 100% 01/28/25 17:52 Percent Meal Consumed 100% 01/28/25 15:53 Labs: RBC 3.89 X10^6/uL (4.5-5.9) L 01/30/25 04:00 Hgb 12.4 g/dL (13.5-17.5) L 01/30/25 04:00 Hct 37.6 % (41-53) L 01/30/25 04:00 Creatinine 1.58 mg/dL (0.66-1.25) H 01/30/25 04:00 Hemoglobin A1c 5.6 % (4.0-6.0) 01/25/25 04:50 Lactate 2.9 mmol/L (0.7-2.1) H 01/23/25 06:45 NT-Pro-B Natriuret Pep 93455 pg/mL (<125) H 01/23/25 04:50 Nutrition Diagnosis: none at this time Monitoring/Evaluations: PO intakes, weights, BG Electronically Signed by: Kay Lucero 01/30/25 10:40 Clinical Dietitian [address] [address]
--- NOTE | 2025-01-30 14:08 | CM.DPNOTE ---
Addendum entered by PATIENCE Leonardo 01/30/25 15:37: SWITCH BOX INSTALLER met with pt in room. pt remains agreeable to dc home tomorrow, just does not want to be readmitted. strongly believes he needs home O2. has [facility] in home ([facility]) and remains agreeable to [facility]. Pt hopeful for home O2 at dc. Per chart review, initial home O2 eval order already placed 01/26. per RT notes, pt does not qualify for home O2 as of 01/30. per RN, pt may benefit from continued education on BiPAP usage vs why pt does not qualify for home O2 (O2 stats improve on movement) SL Original Note: DCP note SWITCH BOX INSTALLER reviewed EMR per PT, pt mobilized well with 2ltrs O2/able to do steps well. SWITCH BOX INSTALLER updated Dr. Goldstein. Dr. Goldstein approved this SWITCH BOX INSTALLER to place home O2 eval order for tomorrow. will coordinate with RT tomorrow. per previous [place] notes anticipate dc Tues 01/31 after last dose of IV abx. Per Kathie from [facility] , can accept pt for services. will send f2f/order/dc summary at [place]. SWITCH BOX INSTALLER emailed Nina at [facility] to cancel referral, appreciated updates. P: anticipate dc tomorrow with [facility] to follow, transport with [facility]. will continue to follow closely for home O2 eval Tues/DCP coordination PATIENCE Leonardo
--- NOTE | 2025-01-30 15:51 | OT.IPNOTE ---
Attempted to see pt for OT services. Per nursing, pt is getting up to the bathroom IND and appears to be close to his baseline. Per patient, he agrees he is back to his normal and requests to defer as he is playing a game on his computer with others at the time this pattern chart writer checked on him. Will hold today and continue to follow for any needs.
[2025-01-30] MEDS: TRAZODONE 50 MG TABLET PO (20:47)
[2025-01-30] MEDS: ROPINIROLE 1 MG TABLET 2 MG PO (20:47)
[2025-01-30] MEDS: ALBUTEROL/IPRATROPIUM 3 ML AMPUL INH (22:06)
[2025-01-31] VITALS: BP 132/94; PULSE 102; RESP 19; TEMP 35.9; O2SAT 98
[2025-01-31 01:22] VITALS: RESP 10; RESP 21
[2025-01-31 04:00] VITALS: BP 141/74; PULSE 102; RESP 19; TEMP 35.6; O2SAT 94
[2025-01-31 05:00] VITALS: RESP 10; RESP 19
--- NOTE | 2025-01-31 07:14 | P.DS_ITS ---
History of Present Illness History of Present Illness Date Patient Seen: 01/31/25 Time Patient Seen: 07:14 Chief complaint: SOB Narrative: Pt is a 67yo man with metastatic prostate cancer, DM type 2, HTN, paroxysmal atrial fibrillation, CAD, and anxiety who presents with severe pain and elevated blood pressures at home. The pt was hospitalized from 01/15-01/18 due to nausea, vomiting, and ESSENCE. The pt he has been gradually working on weaning down on his morphine at home so that he can be more alert and not have as many issues with constipation. He has decreased down to BID dosing when he used to be taking is QID. The pt states that last night around 8pm he had acute onset of severe lower abdominal pain. It persisted since then. The pain is sharp in nature, and feels similar to pain he has had in the past. He states that he did have two BMs today, the first firm and the second softer and more large. He denies any fevers or chills. He has had increased nausea since the pain intensified, but denies any emesis. He took the liquid morphine this morning without any significant relief in his pain. The pt took his BP this morning and it was in the low 200s/100s. He took a bath to try and relax and alleviate some of the pain. When he came out of the bath he repeated his BP and it was still elevated to > 200/100. This is what prompted him to contact EMS. The pt had received 10mg of morphine prior to arrival to the hospital. In the ED, the pts BP was in the 200s/100s. It took his RN over an hour to obtain IV access due to his poor veins. He received 1mg of Dilaudid and then 100mcg of Fentanyl and his pain then improved. Currently the pt states that his pain is 6/10 on the pain scale. It remains in his lower abdomen, however he states that all of his joints hurt as well. {from Dr. Quiñonez's H&P 01/22/2025} Discharge Providers Provider Date of admission: 01/22/25 12:54 Discharge Date: 01/31/25 Primary care physician: Vince Goldstein MD Consults: 01/26/25 07:34 Consult to Occupational Therapy Evaluate & Treat Comment: Physician Instructions: Evaluate and treat Consult to Physical Therapy Evaluate & Treat Comment: Physician Instructions: Evaluate and Treat Discharge provider: Vince Goldstein MD Summary Hospital Course Discharge Diagnosis: 1. Acute hypoxic respiratory failure 2. Acute influenza a pneumonia 3. Acute congestive heart failure with preserved ejection fraction 4. Morbid obesity 5. Chronic respiratory failure with hypercapnia 6. Restrictive lung disease 7. Acute kidney injury, resolved 8. Anemia of chronic disease 9. Thrombocytopenia 10. Chronic venous insufficiency 11. Obstructive sleep apnea of the adult 12. Buried penis 13. Bladder outlet obstruction status post suprapubic catheter placement 14. Pseudomonas bacteremia 15. Iron-deficiency 16. Restless leg syndrome 17. Prostate cancer 18. Bladder cancer 19. Acute hepatitis thought to be secondary to passive congestion Hospital Course: Patient was admitted as above in severe respiratory failure with altered mental status etcetera. With the use of BiPAP he improved rapidly emergency department. He was able to be maintained on intermittent BiPAP with nasal cannula oxygen supplementation during the early portion of his hospitalization without particular difficulty. Patient was treated for 5 days with Tamiflu in his respiratory status seem to improve during this timeframe. Patient was aggressively diuresed with parental loop diuretics with excellent urine output. With this his renal function actually improved. Patient also had improvement in his respiratory status. He was subsequently switch to oral diuretics at a slightly lower dose and he continued to have adequate diuresis and continued improvement in respiratory status. Repeat echocardiography did not demonstrate any new cardiac finding he continues to have a normal left ventricular ejection fraction and has presumed diastolic dysfunction or heart failure with preserved ejection fraction. He will be maintained on oral furosemide upon discharge Patient's electrolytes and renal function were normalized during this hospitalization. He was renal function improved on its own with diuresis he did require potassium supplementation probably given the aggressive loop diuretic therapy and that will be continued at discharge Patient did grow Pseudomonas from 1 blood culture he was treated with 7 days of ceftazidime once this was the identified organism. Patient showed no further evidence of infectious issues during the last several days of his hospitalization. Patient also presented with significant elevation of his LFTs thought to be secondary mostly to passive congestion from his congestive heart failure maybe even some early change related to his severe hypoxia. That has all improved tremendously during hospitalization and were basically at baseline upon discharge. He was not felt to have an infectious hepatitis or anything like that Patient had a suprapubic catheter placed into his bladder just prior to admission at an outside facility. This continued to drain urine very nicely and no evidence of complication related to that procedure. Night before discharge patient did begin to leak from his penile urethra but quick check of his suprapubic catheter by Urology failed to reveal any evidence of problem. Therefore he was reassured his suprapubic catheter is working correctly and if he persists with incontinence through the penile urethra may need some adjustment of bladder spasm type medications Patient was evaluated for home oxygen therapy when he was ready for discharge. His oxygen levels were vastly improved, he maintained at 95% oxygen saturation with activity and equal or better at rest. He does not qualify for home oxygen therapy based on usual criteria Status at Discharge Cognitive/behavioral status at discharge: at baseline, oriented Functional status at discharge: uses cane/walker Overall status at discharge: patient is progressing back to baseline Time Spent with Patient Time spent: Greater than 30 minutes Exam Vital Signs (past 8 hours): - 01/31/25 00:00 01/31/25 01:22 01/31/25 04:00 Temperature 96.7 F L 96.0 F L Pulse Rate 102 H 102 H Respiratory Rate 19 19 Blood Pressure 132/94 H 141/74 H Pulse Oximetry 98 94 Oxygen Flow Rate 0 0 Fraction of Inspired Oxygen 25 01/31/25 05:00 Temperature Pulse Rate Respiratory Rate Blood Pressure Pulse Oximetry Oxygen Flow Rate Fraction of Inspired Oxygen 25 Fraction of Inspired Oxygen 25 SaO2/FiO2 Ratio 452 Oxygen Delivery Method Room Air Oxygen Flow Rate 0 Objective Labs 01/30/25 04:00 01/30/25 04:00 [facility] Medical History Oxygen dependent BMI 50.0-59.9, adult (08/2024) Sepsis (06/2023) Suprapubic catheter dysfunction Sinus tachycardia Chronic renal failure, stage 3a Acquired buried penis Urinary retention Urinary incontinence Iron deficiency Polyneuropathy, unspecified Anemia of chronic disease Mixed hyperlipidemia Eczema (~1996) Restless leg syndrome (~2013) Tinnitus (~1972) Recurrent sinusitis (~2007) Frequent UTI (~2017) Pancreatitis (~1995) Obstructive sleep apnea of adult (~2013) History of kidney stones Phimosis Lower urinary tract symptoms History of prostate cancer (~2016) Chronic venous insufficiency (04/10/16) Restrictive lung disease (08/16/15) Primary insomnia (08/16/15) Morbid obesity (08/16/15) 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) Surgical History History of transurethral resection of bladder tumor (TURBT) (2023) Chronic suprapubic catheter Anesthesia History of common bile duct surgery (~1997) Status post knee surgery (~1993) Family History Brother Prostate cancer Liver cancer Father Parkinson disease Grandfather Hepatitis Grandfather History of heart disease Grandmother Cancer Social History household members: none alcohol intake: current Discharge Plan Discharge Plan Patient Disposition: Home Health Service Transfer to: [facility] Discharge orders & Medications Prescriptions: New furosemide 40 mg tablet 40 mg PO BID Qty: 180 3RF potassium chloride 20 mEq tablet,ER particles/crystals 40 meq PO BID Qty: 360 3RF Rx Instructions: Take with meals Continued methenamine hippurate 1 gram tablet 1 g PO BID Qty: 180 3RF albuterol sulfate 90 mcg/actuation HFA aerosol inhaler 2 puff inhalation Q6H PRN (Reason: shortness of breath or wheezing) Qty: 8.5 6RF (DME) Microchamber Spacer See Rx Instructions .Route Qty: 1 0RF Rx Instructions: As directed meloxicam 7.5 mg tablet 7.5 mg PO DAILY Qty: 90 3RF (DME) Disabled Parking Permit See Rx Instructions .ROUTE .MEDSUPPLY Qty: 1 0RF Rx Instructions: Patient qualifies for disabled parking as per the attached form. duloxetine 30 mg capsule,delayed release(DR/EC) 30 mg PO DAILY Qty: 90 3RF omeprazole 40 mg capsule,delayed release(DR/EC) 40 mg PO DAILY Qty: 90 3RF ropinirole 2 mg tablet 2 mg PO BEDTIME Rx Instructions: 2-3 hrs before bedtime. trazodone 50 mg tablet 50 mg PO BEDTIME Rx Instructions: 2-3 hrs before bed ferrous sulfate 325 mg (65 mg iron) tablet 325 mg PO DAILY oxycodone 5 mg tablet 5 mg PO Q8H PRN (Reason: pain (scale score 7-10)) Qty: 7 0RF Renacidin 1,980.6 mg-59.4 mg-980.4mg/30mL solution 30 ml irrigation TID Qty: 900 3RF Patient Comments: still prescribed but unable to take since august potassium chloride 10 mEq tablet extended release 10 meq PO DAILY Qty: 90 3RF furosemide 20 mg tablet 20 - 40 mg PO BID Qty: 360 1RF Rx Instructions: 40mg in am, 20mg in pm Renacidin 1,980.6 mg-59.4 mg-980.4mg/30mL solution 30 ml irrigation TID Follow up/Referrals: Vince Goldstein MD [Primary Care Provider] - 1 Week Diet/Activity/Treatments Diet: Diet as Tolerated Catheter: Suprapubic and Irrigant/Irrigate Oxygen: 1 l/min NC with activity, 1 l/min nocturnal Visit Report/Discharge Packet Stand Alone Forms: Patient Portal/API Discharge Data Primary Care Provider: Vince Goldstein Quality VTE Deep Vein Thrombosis/Pulmonary Embolism Present on Admission: No [facility] PROFEE Charge Codes Discharge inpatient/observation: [id number]
[2025-01-31 08:00] VITALS: BP 152/75; PULSE 95; RESP 18; O2SAT 96
--- NOTE | 2025-01-31 08:26 | PM.PN.IH.1 ---
Subjective Subjective Date Patient Seen: 01/31/25 Time Patient Seen: 08:27 Interval history: Patient had an eventful night. He had began to leak urine through his urethra which he was not happened since he had his suprapubic catheter placed. Nursing staff help change him since he was soaked with his clothing and rechecked dressing and arrangement of his suprapubic catheter tube did not appear to be kinked off and urine appears to be clear. Still has very little urine in his urine bag overnight Also somewhat dismayed with his evaluation for home oxygen yesterday. He apparently was walked very limited distance in his room and maintained an oxygen saturation but later when physical therapy came did some very minimal step work in the room and with that hit a low oxygen saturation in the mid 70s. Did rebound nicely when resting, but that is entirely different than what he was observed by respiratory therapy with his minimal activity Exam Vital Signs (past 8 hours): - 01/31/25 01:22 01/31/25 04:00 01/31/25 05:00 Temperature 96.0 F L Pulse Rate 102 H Respiratory Rate 19 Blood Pressure 141/74 H Pulse Oximetry 94 Oxygen Flow Rate 0 Fraction of Inspired Oxygen 25 25 01/31/25 08:00 Temperature Pulse Rate 95 H Respiratory Rate 18 Blood Pressure 152/75 H Pulse Oximetry 96 Oxygen Flow Rate Fraction of Inspired Oxygen Fraction of Inspired Oxygen 25 SaO2/FiO2 Ratio 452 Oxygen Delivery Method Room Air Oxygen Flow Rate 0 Objective Labs 01/30/25 04:00 01/30/25 04:00 [facility] Medical History Oxygen dependent BMI 50.0-59.9, adult (08/2024) Sepsis (06/2023) Suprapubic catheter dysfunction Sinus tachycardia Chronic renal failure, stage 3a Acquired buried penis Urinary retention Urinary incontinence Iron deficiency Polyneuropathy, unspecified Anemia of chronic disease Mixed hyperlipidemia Eczema (~1996) Restless leg syndrome (~2013) Tinnitus (~1972) Recurrent sinusitis (~2007) Frequent UTI (~2017) Pancreatitis (~1995) Obstructive sleep apnea of adult (~2013) History of kidney stones Phimosis Lower urinary tract symptoms History of prostate cancer (~2016) Chronic venous insufficiency (04/10/16) Restrictive lung disease (08/16/15) Primary insomnia (08/16/15) Morbid obesity (08/16/15) 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 Acute hypoxic respiratory failure-continues to slowly improve. Still desaturating with activity per patient report. Unfortunately did not desaturate with initial respiratory therapy evaluation. Likely going to need additional evaluation 2. Acute congestive heart failure-continue with oral diuretic therapy for now which I am going to continue has a baseline. 3. Acute influenza A-this is a component I think to his overall respiratory distress as well. Has completed his Tamiflu. Seems to be improving from a respiratory standpoint likely because his influenza has a improved as well. 4. Acute hepatitis-much improved when last checked 5. Acute kidney injury on top of chronic renal failure stage 3 a-back to baseline. Continue current diuretic therapy as above. 6. Cardiac-hemodynamically stable. Echo basically unchanged from previous. Expected (given his body habitus etcetera) findings of probably early cor pulmonale 7. Bladder outlet obstruction with chronic catheterization-patient was new suprapubic catheter placed on January 20. Patient completed 7 days of therapy for Pseudomonas bacteremia which was presumably urine source. Overnight patient has begun to leak through the urethra which he was suggest his suprapubic tube is not fully functional. Will need Urology to see him before he can be discharged. I have reached out to his urologist 8. Morbid obesity-obviously patient's size he was a contributing factor to any of the above issues including his inability to breathe on his back he was restrictive lung disease. Also has contributed greatly to his bladder outlet obstructive process requiring procedures as noted. 9. Disposition-patient planning to go home when ready for discharge. Still believe patient will benefit from home oxygen therapy with activity and nocturnal. Hopefully we can prove that so that this will be covered 10. Hyperglycemia-better without the corticosteroids. Continue to monitor for now Assuming we can solve the issues with his suprapubic catheter and his home oxygen therapy he can be ready for discharge either later today or tomorrow Time-Based Coding :: [TOTAL MINUTES] spent with patient and on the chart (including review of chart, obtaining history, exam, reviewing outside data, placing orders, documenting exam and treatment plan, and counseling patient) on [DATE]. Quality VTE Deep Vein Thrombosis/Pulmonary Embolism Present on Admission: No [facility] PROFEE [employer] Document charge(s): Yes Charge Codes Subsequent inpatient/observation care: [id number]
[2025-01-31] MEDS: POTASSIUM CHLORIDE 20 MEQ TAB 40 MEQ PO (08:32)
[2025-01-31] MEDS: INSULIN LISPRO 100 UNIT/ML 3ML VIAL SUBCUT (08:32)
[2025-01-31] MEDS: PANTOPRAZOLE DR 40 MG TABLET PO (08:32)
[2025-01-31] MEDS: FUROSEMIDE 40 MG TABLET PO (08:32)
[2025-01-31] MEDS: DULOXETINE 30 MG CAPSULE PO (08:32)
[2025-01-31] MEDS: SODIUM CHLORIDE 0.9% FLUSH 10 ML IV (08:34)
[2025-01-31 12:00] VITALS: BP 135/65; PULSE 107; RESP 16; O2SAT 99
[2025-01-31] MEDS: SUCRALFATE 1 GM TABLET PO (13:07)
--- NOTE | 2025-01-31 14:49 | CM.DPNOTE ---
DCP note BUSINESS ACCOUNT SPECIALIST reviewed EMR per RT, continues not to qualify for home O2. per chart, urology concerns resolved. cleared for dc with [facility] and HH today. BUSINESS ACCOUNT SPECIALIST met with pt in room, agreeable to dc home with [facility]. denies other questions or needs. BUSINESS ACCOUNT SPECIALIST emailed Kathie from [facility] f2f/order/dc summary information BUSINESS ACCOUNT SPECIALIST updated TCM group P: dc today with [facility] and [facility]. transport with [facility]. will continue to follow as needed PATIENCE Leonardo
--- NOTE | 2025-01-31 15:08 | PC.NURSE ---
Discharge Note Patient A&O, VSS, RA, no complaints of pain/discomfort. Patient agreeable to discharge plan. Discharge packet reviewed with patient, all questions/concerns addressed. PICC discontinued. Patient able to dress self and pack all belongings with assistance. Patient taken down via wheelchair to POV.
== END 2025-01-31 15:00 | disposition home health service (06) | DRG 189 ==
LOC: ED 12:47 → AC 12:55 → ICU 13:50
PROVIDERS: Family Medicine; Admitting Provider Family Medicine; Emergency Provider Family Medicine; PCP Internal Medicine; Referring Provider Family Medicine; Visit Provider Internal Medicine
DX: J96.01 Acute respiratory failure with hypoxia (principal); I50.31 Acute diastolic (congestive) heart failure; J10.01 Influenza due to other identified influenza virus with the same other identified influenza virus pneumonia; I24.89 Other forms of acute ischemic heart disease; N17.9 Acute kidney failure, unspecified; Z68.43 Body mass index [BMI] 50.0-59.9, adult; B17.9 Acute viral hepatitis, unspecified; R78.81 Bacteremia; J96.12 Chronic respiratory failure with hypercapnia; F32.A Depression, unspecified; J98.4 Other disorders of lung; R00.0 Tachycardia, unspecified; N18.31 Chronic kidney disease, stage 3a; N32.0 Bladder-neck obstruction; E66.01 Morbid (severe) obesity due to excess calories; R73.9 Hyperglycemia, unspecified; B96.5 Pseudomonas (aeruginosa) (mallei) (pseudomallei) as the cause of diseases classified elsewhere; E87.6 Hypokalemia; D69.6 Thrombocytopenia, unspecified; D63.1 Anemia in chronic kidney disease; I87.2 Venous insufficiency (chronic) (peripheral); Q55.64 Hidden penis; E61.1 Iron deficiency; G25.81 Restless legs syndrome; Z96.0 Presence of urogenital implants; Z85.46 Personal history of malignant neoplasm of prostate; Z85.51 Personal history of malignant neoplasm of bladder
CPT/HCPCS: 36415; 36592; 36600; 71045; 71275; 76705; 80048; 80053; 80074; 82550; 82805; 82962; 83036; 83605; 83690; 83735; 83880; 84145; 84484; 85025; 85610; 85730; 87040; 87077; 87154; 87186; 87633; 87797; 93005; 93010; 93306; 94618; 94640; 94660; 96365; 96375; 97116; 97162; 97166; 97530; 99285; J0696; J0713; J1642; J1650; J1815; J1938; J2919; J7613; Q2004; Q9957; Q9967

== ENCOUNTER → 2025-02-10 14:32 | Outpatient (CLI) | payer MEDICARE, MEDICAID, SELFPAY ==
[2025-01-22 17:00] VITALS: BMI 56.6
[2025-01-30 22:12] VITALS: PULSE 107; O2SAT 99
[2025-01-31 05:00] VITALS: RESP 19
[2025-02-10 15:35] LABS: Alanine Aminotransferase 44 IU/L (<50); Albumin 3.7 g/dL (3.5-5.0); Albumin Globulin Ratio 1.1 (1.0-2.8); Alkaline Phosphatase 117 U/L (38-126); Aspartate Aminotransferase 36 IU/L (17-59); BUN Creatinine Ratio 13.4 (6-22); Bilirubin Total 0.8 mg/dL (0.2-1.3); Blood Urea Nitrogen 18 mg/dL (9-20); Calcium 9.1 mg/dL (8.4-10.2); Carbon Dioxide 27 mmol/L (22-32); Chloride 103 mmol/L (98-107); Estimated Glomerular Filt Rate 57 mL/min (>60); Globulin 3.3 g/dL (1.7-4.1); Glucose 176 mg/dL (70-99); HEMOLYSIS < 15 (0-50); Potassium 4.3 mmol/L (3.4-5.1); Sodium 138 mmol/L (137-145)
[2025-02-10 15:42] LABS: NT-proBNP (BNP-Adult 18+) 203 pg/mL (<125)
== END ==
PROVIDERS: PCP Internal Medicine; Referring Provider Internal Medicine; Visit Provider Internal Medicine
DX: I50.9 Heart failure, unspecified (principal); J10.1 Influenza due to other identified influenza virus with other respiratory manifestations; N17.9 Acute kidney failure, unspecified; N18.9 Chronic kidney disease, unspecified; E66.2 Morbid (severe) obesity with alveolar hypoventilation; Z68.43 Body mass index [BMI] 50.0-59.9, adult
CPT/HCPCS: 36415; 80053; 83880

== ENCOUNTER 2025-07-10 15:01 | Emergency (ER) | payer MEDICARE, MEDICAID, SELFPAY ==
[2025-07-10 15:02] VITALS: PULSE 107; RESP 19; O2SAT 99; BMI 56.6
[2025-07-10 16:21] VITALS: BP 133/68; PULSE 105; RESP 18; TEMP 37.1; O2SAT 98; BMI 54.1
--- NOTE | 2025-07-10 18:23 | DI.RAD.S_ITS ---
PROCEDURE: XR HAND LT MIN 3V INDICATIONS: left hand nontraumatic pain; index finger swelling TECHNIQUE: 3 views of the hand acquired. COMPARISON: None. FINDINGS: Bones: No true lateral view obtained. No acute fractures or dislocations. Carpal bones are normally aligned. No suspicious bony lesions. Soft tissues: Nonspecific soft tissue swelling is seen in the hand and fingers. IMPRESSION: Nonspecific soft tissue edema. No acute osseous abnormality. If there is continued clinical concern or persistent symptoms, repeat radiographs or cross-sectional imaging (e.g. CT, MRI) may be helpful for further evaluation. Approved by: Dale Simental M.D. on 07/10/2025 at 19:40
--- NOTE | 2025-07-10 18:24 | ED.EXTPRO ---
HPI - Extremity Problem <Izabel Walter PA-C - Last Filed: 07/10/25 19:31> General Chief complaint: Extremity Problem,Nontraumatic Stated complaint: Both hands swollen and red patches Time Seen by Provider: 07/10/25 18:06 Source: patient and family Mode of arrival: Wheelchair History of Present Illness HPI Narrative: Mr. Akers is a very pleasant 69-year-old male with a complex medical history including CKD, prior prostate cancer s/p suprapubic catheter, CHF, polyneuropathy, anemia, chronic venous insufficiency, restrictive lung disease, morbid obesity, arthritis, gout, sinus tachycardia who presents to the emergency department for concern of left hand pain and swelling x5 days. Patient reports he initially had pain in the left wrist 5 days ago, the pain has since traveled to the left hand and he is also starting to notice some pain in the right wrist. Patient reports over the last few days his left index finger has become red and swollen. 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 He reports history of gout in his toe many years ago. Denies any trauma to this hand or wrist. Denies fevers, chills, flu-like symptoms, wound or injury to the hand. Reports baseline neuropathy. Related Data Home Medications ?Medication ?Instructions ?Recorded ?Confirmed ropinirole 2 mg tablet 2 mg PO BEDTIME 06/26/20 07/05/25 trazodone 50 mg tablet 50 mg PO BEDTIME 06/26/20 07/05/25 ferrous sulfate 325 mg (65 mg 325 mg PO DAILY 09/25/22 07/05/25 iron) tablet Previous Rx's ?Medication ?Instructions ?Recorded methenamine hippurate 1 gram tablet 1 g PO BID #180 tabs 07/01/24 inhalational spacing device #1 ea 09/12/24 (Microchamber spacer) citric ac 1980.6 mg-glucono 59.4 30 ml irrigation TID #900 mL 11/02/24 mg-mag carb 980.4 mg/30 mL irrig.soln (Renacidin) Disabled Parking Permit #1 ea 12/01/24 duloxetine 30 mg capsule,delayed 30 mg PO DAILY #90 caps 12/22/24 release omeprazole 40 mg capsule,delayed 40 mg PO DAILY #90 caps 01/24/25 release potassium chloride 20 mEq 40 meq (2 x 20 mEq) PO BID #360 01/31/25 tablet,extended release(part/cryst) tabs meloxicam 7.5 mg tablet 7.5 mg PO DAILY #90 tabs 03/28/25 torsemide 20 mg tablet 20 mg PO BID #60 tabs 03/28/25 nystatin 100,000 unit/gram topical 1 applic topical TID #60 grams 04/25/25 powder Raised Toilet Seat #1 ea 05/31/25 cyclobenzaprine 10 mg tablet 10 mg PO TID PRN muscle spasm #30 07/03/25 tabs oxycodone 10 mg tablet 10 mg PO Q6H PRN pain in back #60 07/03/25 tabs prednisone 20 mg tablet See Rx Instructions .Route 07/10/25 .COMPLEX #14 tabs albuterol sulfate 90 mcg/actuation 2 puff inhalation Q6H PRN 07/13/25 aerosol inhaler shortness of breath or wheezing #8.5 grams Allergies Allergy/AdvReac Type Severity Reaction Status Date / Time No Known Drug Allergies Allergy Verified 07/03/25 15:51 Review of Systems <Izabel Walter PA-C - Last Filed: 07/10/25 19:31> Review of Systems ROS Unobtainable: All systems reviewed & are unremarkable except as noted in HPI and below Patient History <Izabel Walter PA-C - Last Filed: 07/10/25 19:31> Medical History H/O adenomatous polyp of colon Chronic indwelling Montoya catheter Oxygen dependent BMI 50.0-59.9, adult (08/2024) Sepsis (06/2023) Suprapubic catheter dysfunction Sinus tachycardia Chronic renal failure, stage 3a Acquired buried penis Urinary retention Urinary incontinence Iron deficiency Polyneuropathy, unspecified Anemia of chronic disease Mixed hyperlipidemia Eczema (~1996) Restless leg syndrome (~2013) Tinnitus (~1972) Recurrent sinusitis (~2007) Frequent UTI (~2017) Pancreatitis (~1995) Obstructive sleep apnea of adult (~2013) History of kidney stones Phimosis Lower urinary tract symptoms History of prostate cancer (~2016) Chronic venous insufficiency (04/10/16) Restrictive lung disease (08/16/15) Primary insomnia (08/16/15) Morbid obesity (08/16/15) 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) Surgical History History of transurethral resection of bladder tumor (TURBT) (2023) Chronic suprapubic catheter Anesthesia History of common bile duct surgery (~1997) Status post knee surgery (~1993) Family History Brother Prostate cancer Liver cancer Father Parkinson disease Grandfather Hepatitis Grandfather History of heart disease Grandmother Cancer Social History household members: none Smoking Status: Never smoker alcohol intake: current Smoking Status: Never smoker alcohol intake frequency: 0-2 drinks per day Alcohol type: beer Exam <Izabel Walter PA-C - Last Filed: 07/10/25 19:31> Narrative Exam Narrative: GENERAL: 69 year old patient appears stated age. Obese patient, in no acute distress. HEAD: Atraumatic. Normocephalic. RESPIRATORY: ?Nonlabored respirations. ?Speaking in clear, full sentences. ? EXTREMITIES: 2+ radial pulses BL. Brisk cap refill present on all fingertips. Patient has edema and erythema of the left index finger with erythema overlying the dorsal aspect of the 2nd MCP and PIP joints. He has pain with flexion of the index finger. There is no erythema streaking or extending onto the hand or arm. There is no wrist tenderness or difficulty with flexion-extension bilaterally. NEURO: AOx3. ?Clear speech. ? SKIN: Superficial abrasion dorsal right hand. Erythema edema left index finger described above. Initial Vital Signs Initial Vital Signs: Vital Signs Temperature 98.7 F 07/10/25 16:21 Pulse Rate 105 H 07/10/25 16:21 Respiratory Rate 18 07/10/25 16:21 Blood Pressure 133/68 07/10/25 16:21 Pulse Oximetry 98 07/10/25 16:21 Oxygen Delivery Method Room Air 07/10/25 16:21 <Amie Fernandez DO - Last Filed: 07/20/25 07:44> Initial Vital Signs Initial Vital Signs: Vital Signs Temperature 98.7 F 07/10/25 16:21 Pulse Rate 105 H 07/10/25 16:21 Respiratory Rate 18 07/10/25 16:21 Blood Pressure 133/68 07/10/25 16:21 Pulse Oximetry 98 07/10/25 16:21 Oxygen Delivery Method Room Air 07/10/25 16:21 Course <Izabel Walter PA-C - Last Filed: 07/10/25 19:31> Orders Ordered: Discontinued Medications Cephalexin HCl (Cephalexin 250 Mg Capsule) 500 mg PO NOW ONE Stop: 07/10/25 18:37 Last Admin: 07/10/25 19:06 Dose: 500 mg Documented By: ISHAN Prednisone (Prednisone 20 Mg Tablet) 40 mg PO NOW ONE Stop: 07/10/25 18:37 Last Admin: 07/10/25 19:05 Dose: 40 mg Documented By: ISHAN Vital Signs Vital signs: Vital Signs - 8 hr 07/10/25 16:21 Temperature 98.7 F Pulse Rate 105 H Respiratory Rate 18 Blood Pressure 133/68 Pulse Oximetry 98 Oxygen Delivery Method Room Air <Amie Fernandez DO - Last Filed: 07/20/25 07:44> Orders Ordered: Discontinued Medications Cephalexin HCl (Cephalexin 250 Mg Capsule) 500 mg PO NOW ONE Stop: 07/10/25 18:37 Last Admin: 07/10/25 19:06 Dose: 500 mg Documented By: ISHAN Prednisone (Prednisone 20 Mg Tablet) 40 mg PO NOW ONE Stop: 07/10/25 18:37 Last Admin: 07/10/25 19:05 Dose: 40 mg Documented By: ISHAN Vital Signs Vital signs: Vital Signs - 8 hr 07/10/25 16:21 Temperature 98.7 F Pulse Rate 105 H Respiratory Rate 18 Blood Pressure 133/68 Pulse Oximetry 98 Oxygen Delivery Method Room Air MDM - Extremity (Nontraumatic) <LORENA Anne Last Filed: 07/10/25 19:31> Medical Records Attestation: I reviewed the patient's medical records. MDM Narrative Medical decision making narrative: 69-year-old male with a complex medical history including CKD, prior prostate cancer s/p suprapubic catheter, CHF, polyneuropathy, anemia, chronic venous insufficiency, restrictive lung disease, morbid obesity, arthritis, gout, sinus tachycardia who presents to the emergency department for concern of left hand pain and swelling x5 days. Differential diagnosis includes but is not limited to polyarthritis, inflammatory arthritis, rheumatoid arthritis, degenerative arthritis, gout, cellulitis, etc. On exam patient is in no acute distress, nontoxic-appearing, all vital signs within normal limits except for heart rate which is mildly elevated however is patient's baseline. Physical exam reveals edema of the left index finger with erythema overlying the dorsal aspect of the left PIP and MCP. There is no tenderness to palpation of the flexor tendon, erythema does not extend onto the dorsal hand or up the arm. He is neurovascularly intact. No trauma to this area. We will obtain x-ray. Discussed case with attending ER MD, will plan to treat patient with prednisone and cellulitis to cover for both inflammatory arthrtitis in addition to potential early skin infection. 1930: Case discussed with Dr. Fernandez, transfer of care as XR results still pending. Prednisone and Keflex sent to patient pharmacy of choice. Discharge Plan Departure Patient Disposition: Home Clinical Impression: Swelling of left index finger Instructions: DI for Arthritis Activity Restrictions/Additional Instructions: Dear Mr. Akers, Thank you for coming to the emergency department. Today you were evaluated for wrist and hand pain, and swelling and pain of the left index finger. You were treated with a steroid, prednisone, for potential inflammatory arthritis, and cephalexin, which is an antibiotic, for possible early skin and soft tissue infection. Please complete the full taper of steroids and the full course of antibiotics. Please be aware that prednisone is a steroid which can raise blood glucose so it is important to increase hydration and decrease sugar and carbohydrates in the diet while taking this medication. Please follow up with your primary care doctor for further management. Please return to the emergency department immediately if you develop new or worsening symptoms, redness spreading, fevers or other concerns. Please follow up with your primary care doctor within the next 2-3 days for ER follow-up. (If you do not have a PCP you can call [phone]. ?to schedule an appointment with an [facility] Primary Care Provider) IF YOU DEVELOP ANY NEW OR WORSENING SYMPTOMS, RETURN TO THE ER! Please read the attached instructions, they highlight more specific treatments and interventions for you at home. Thank you for letting me participate in your care, Izabel Walter PA-C Prescriptions: New prednisone 20 mg tablet See Rx Instructions .ROUTE .COMPLEX Qty: 14 0RF Rx Instructions: Take 40mg (2 tabs) once daily days 1-5, followed by 20mg (1 tab) days 6-8, followed by 10mg (1/2 tab) day 9 and 10. No Action methenamine hippurate 1 gram tablet 1 g PO BID Qty: 180 3RF (DME) Microchamber Spacer See Rx Instructions .Route Qty: 1 0RF Rx Instructions: As directed (DME) Disabled Parking Permit See Rx Instructions .ROUTE .MEDSUPPLY Qty: 1 0RF Rx Instructions: Patient qualifies for disabled parking as per the attached form. duloxetine 30 mg capsule,delayed release(DR/EC) 30 mg PO DAILY Qty: 90 3RF omeprazole 40 mg capsule,delayed release(DR/EC) 40 mg PO DAILY Qty: 90 3RF meloxicam 7.5 mg tablet 7.5 mg PO DAILY Qty: 90 3RF torsemide 20 mg tablet 20 mg PO BID Qty: 60 4RF Rx Instructions: take in am, and again at noon/early afternoon nystatin 100,000 unit/gram powder 1 applic topical TID Qty: 60 3RF (DME) Raised Toilet Seat See Rx Instructions .Route .MEDSUPPLY Qty: 1 0RF Rx Instructions: [facility] albuterol sulfate 90 mcg/actuation HFA aerosol inhaler 2 puff inhalation Q6H PRN (Reason: shortness of breath or wheezing) Qty: 8.5 6RF oxycodone 10 mg tablet 10 mg PO Q6H MDD 40mg (4 tabs) PRN (Reason: pain in back) Qty: 60 0RF cyclobenzaprine 10 mg tablet 10 mg PO TID PRN (Reason: muscle spasm) Qty: 30 0RF ropinirole 2 mg tablet 2 mg PO BEDTIME Rx Instructions: 2-3 hrs before bedtime. trazodone 50 mg tablet 50 mg PO BEDTIME Rx Instructions: 2-3 hrs before bed ferrous sulfate 325 mg (65 mg iron) tablet 325 mg PO DAILY potassium chloride 20 mEq tablet,ER particles/crystals 40 meq PO BID Qty: 360 3RF Rx Instructions: Take with meals Renacidin 1,980.6 mg-59.4 mg-980.4mg/30mL solution 30 ml irrigation TID Qty: 900 3RF Patient Comments: still prescribed but unable to take since august Referrals: Vince Goldstein MD [Primary Care Provider, Internal Medicine] Stand Alone Forms: Patient Portal/API ED Sign-out <Amie Jim, - Last Filed: 07/20/25 07:44> Cosign ED Attending Cosignature Attestation: I saw and evaluated patient myself I took over care. He overall appears well nontoxic minimal edema and erythema. X-ray shows soft tissue edema but no concern for osteomyelitis. He is nontoxic. He also has some pain and some other joint I suspect more of an arthritis. Treating for both arthritis and cellulitis. I was available for consultation.
[2025-07-10 19:56] VITALS: BP 135/60; PULSE 106; O2SAT 95
== END 2025-07-10 20:05 | disposition home or self-care (01) ==
PROVIDERS: Emergency Provider Emergency Medicine; PCP Internal Medicine
DX: M79.89 Other specified soft tissue disorders (principal)
CPT/HCPCS: 73130; 99283

== ENCOUNTER 2025-08-17 11:41 | Emergency (ER) | payer MEDICARE, MEDICAID, SELFPAY ==
[2025-08-17 12:07] VITALS: BP 116/57; PULSE 111; RESP 20; TEMP 35.7; O2SAT 98; BMI 51.7
--- NOTE | 2025-08-17 12:14 | DI.RAD.S_ITS ---
PROCEDURE: XR HIP W PEL IF DONE RT 2V
--- NOTE | 2025-08-17 12:14 | DI.RAD.S_ITS ---
PROCEDURE: XR ANKLE RT MIN 3V
--- NOTE | 2025-08-17 12:15 | DI.CT.S_ITS ---
PROCEDURE: CT HEAD/BRAIN WO CON
[2025-08-17] MEDS: BACITRACIN OINT 0.9 GM PCKT 1 APPLIC TOP (12:16)
--- NOTE | 2025-08-17 12:17 | DI.CT.S_ITS ---
PROCEDURE: CT FACIAL BONES WO CON
[2025-08-17] MEDS: TET,DIPH,PERTUSS(ACELL),VAC/PF 0.5 ML SYRINGE IM (12:21)
--- NOTE | 2025-08-17 12:21 | ED_ITS ---
<Statement entered by Vince Isaacs, DO - 08/18/25 07:49>
--- NOTE | 2025-08-17 12:21 | ED.FALL ---
HPI - Fall General Chief Complaint: Fall Stated Complaint: fall, right hip pain x 5 days Time Seen by Provider: 08/17/25 12:21 History of Present Illness HPI Narrative: Mr. Akers is a very pleasant 69-year-old male with a past medical history of CHF, prostate cancer, suprapubic catheter in place, uncomplicated opioid dependence, anemia, CKD, polyneuropathy, venous insufficiency who presents to the emergency department with his home caregiver for right hip and right ankle pain after a fall that occurred 4 days ago. Patient states that he was getting out of his car in the dark when he tripped falling forward causing him to fall into his garage door. He hit the left side of his face on the garage door and has bruising to the left eyebrow. He has also been having right-sided hip and ankle pain since then that is actually getting worse. He has been ambulating independently but now he is needing to use a cane. Takes oxycodone and meloxicam for his chronic pain which has been helping with this. He has an abrasion on his right dorsal hand and his right knee. He denies any loss of consciousness, blood thinner use, neck pain, back pain, chest pain, abdominal pain, left leg pain, upper extremity pain. Related Data Home Medications ?Medication ?Instructions ?Recorded ?Confirmed ropinirole 2 mg tablet 2 mg PO BEDTIME 06/26/20 08/14/25 trazodone 50 mg tablet 50 mg PO BEDTIME 06/26/20 08/14/25 ferrous sulfate 325 mg (65 mg 325 mg PO DAILY 09/25/22 08/14/25 iron) tablet Previous Rx's ?Medication ?Instructions ?Recorded methenamine hippurate 1 gram tablet 1 g PO BID #180 tabs 07/01/24 inhalational spacing device #1 ea 09/12/24 (Microchamber spacer) citric ac 1980.6 mg-glucono 59.4 30 ml irrigation TID #900 mL 11/02/24 mg-mag carb 980.4 mg/30 mL irrig.soln (Renacidin) Disabled Parking Permit #1 ea 12/01/24 duloxetine 30 mg capsule,delayed 30 mg PO DAILY #90 caps 12/22/24 release omeprazole 40 mg capsule,delayed 40 mg PO DAILY #90 caps 01/24/25 release potassium chloride 20 mEq 40 meq (2 x 20 mEq) PO BID #360 04/22/25 tablet,extended release(part/cryst) tabs meloxicam 7.5 mg tablet 7.5 mg PO DAILY #90 tabs 03/28/25 torsemide 20 mg tablet 20 mg PO BID #60 tabs 03/28/25 nystatin 100,000 unit/gram topical 1 applic topical TID #60 grams 04/25/25 powder Raised Toilet Seat #1 ea 05/31/25 albuterol sulfate 90 mcg/actuation 2 puff inhalation Q6H PRN 07/13/25 aerosol inhaler shortness of breath or wheezing #8.5 grams cyclobenzaprine 10 mg tablet 10 mg PO TID PRN muscle spasm #30 08/14/25 tabs oxycodone 10 mg tablet 10 mg PO Q6H PRN pain in back #60 08/14/25 tabs prednisone 10 mg tablet 5 mg (1/2 x 10 mg) PO DAILY #90 08/14/25 tabs Allergies Allergy/AdvReac Type Severity Reaction Status Date / Time No Known Drug Allergies Allergy Verified 08/14/25 15:46 Review of Systems Review of Systems ROS Unobtainable: All systems reviewed & are unremarkable except as noted in HPI and below Patient History Medical History (Updated 08/17/25 @ 13:46 by Izabel Walter PA-C) Uncomplicated opioid dependence H/O adenomatous polyp of colon Chronic indwelling Montoya catheter Oxygen dependent BMI 50.0-59.9, adult (08/2024) Sepsis (06/2023) Suprapubic catheter dysfunction Sinus tachycardia Chronic renal failure, stage 3a Acquired buried penis Urinary retention Urinary incontinence Iron deficiency Polyneuropathy, unspecified Anemia of chronic disease Mixed hyperlipidemia Eczema (~1996) Restless leg syndrome (~2013) Tinnitus (~1972) Recurrent sinusitis (~2007) Frequent UTI (~2017) Pancreatitis (~1995) Obstructive sleep apnea of adult (~2013) History of kidney stones Phimosis Lower urinary tract symptoms History of prostate cancer (~2016) Chronic venous insufficiency (04/10/16) Restrictive lung disease (08/16/15) Primary insomnia (08/16/15) Morbid obesity (08/16/15) 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) Surgical History History of transurethral resection of bladder tumor (TURBT) (2023) Chronic suprapubic catheter Anesthesia History of common bile duct surgery (~1997) Status post knee surgery (~1993) Family History Brother Prostate cancer Liver cancer Father Parkinson disease Grandfather Hepatitis Grandfather History of heart disease Grandmother Cancer Social History household members: none alcohol intake: current alcohol intake frequency: 0-2 drinks per day Alcohol type: beer Exam Narrative Exam Narrative: GENERAL: 69 year old patient appears stated age. Obese patient, in no acute distress. HEAD: Normocephalic. EYES: Right pupil irregularly shaped, larger than the left pupil. It is reactive to light. Extraocular motions intact. No scleral icterus. No injection or drainage. There is ecchymosis above the left eye. ENT: Nose without bleeding, purulent drainage. NECK: Trachea midline. Cervical ROM intact. No midline cervical tenderness. CARDIOVASCULAR: Regular rate and rhythm. RESPIRATORY: ?Nonlabored respirations. ?Speaking in clear, full sentences. Somewhat diminished auscultation. GASTROINTESTINAL: Abdomen soft, non-tender, nondistended. EXTREMITIES: Tenderness to palpation of right proximal lateral thigh, medial malleolus of right ankle. Superficial abrasion on anterior right knee. No tenderness to palpation of bilateral upper extremities or left lower extremity. Strong DP pulse on the right foot. BACK: No midline spinal tenderness. NEURO: AOx3. ?Clear speech. Sensation intact to light touch on bilateral upper and lower extremities. SKIN: Superficial abrasion dorsal right hand and anterior right knee. Bruising around left eye. Initial Vital Signs Initial Vital Signs: Vital Signs Temperature 96.3 F L 08/17/25 12:07 Pulse Rate 111 H 08/17/25 12:07 Respiratory Rate 20 08/17/25 12:07 Blood Pressure 116/57 L 08/17/25 12:07 Pulse Oximetry 98 08/17/25 12:07 Oxygen Delivery Method Room Air 08/17/25 12:07 Course Orders Ordered: ED Orders 08/17/25 12:14 XR ankle RT min 3V Stat XR hip w pel RT 2V Stat 08/17/25 12:15 CT head/brain wo con Stat 08/17/25 12:17 CT facial bones wo con Stat Discontinued Medications Bacitracin (Bacitracin Oint 0.9 Gm Pckt) 1 applic TOP NOW ONE Stop: 08/17/25 12:15 Last Admin: 08/17/25 12:16 Dose: 1 applic Documented By: CTS Diphtheria/Tetanus/Acell Pertussis (Tet,Diph,Pertuss(Acell),Vac/Pf 0.5 Ml Syringe) 0.5 ml IM .ONCE ONE Stop: 08/17/25 12:19 Last Admin: 08/17/25 12:21 Dose: 0.5 ml Documented By: CTS Vital Signs Vital signs: Vital Signs - 8 hr 08/17/25 12:07 08/17/25 14:21 Temperature 96.3 F L 98.2 F Pulse Rate 111 H 98 H Respiratory Rate 20 16 Blood Pressure 116/57 L 133/88 Pulse Oximetry 98 94 Oxygen Delivery Method Room Air Room Air MDM - Fall Medical Records Attestation: I reviewed the patient's medical records. Imaging Data Face CT: Radiologist's Impression: PROCEDURE: CT FACIAL BONES WO CON INDICATIONS: fall, L orbital pain TECHNIQUE: Noncontrast 2.5 mm thick axial images acquired from the mandible through the frontal sinuses, with coronal and sagittal reformatting. For radiation dose reduction, the following was used: automated exposure control, adjustment of mA and/or kV according to patient size. COMPARISON: None. FINDINGS: Image quality: Excellent. Bones and teeth: Orbital ely are intact. Sinus ely show no fracture or deformity. Nasal bones and septum are intact. Visualized portions of the mandible demonstrate no fractures or subluxation. Zygomatic arches are intact. Pterygoid plates are intact. Visualized portions of the skull base and auditory canals are intact. Sinuses: Paranasal sinuses are aerated, without fluid levels, mucosal thickening, or mucoceles. Mastoid air cells are aerated. Soft tissues: No edema, masses, or fluid collections. No enlarged lymph nodes. No soft tissue lacerations or debris. Vascular: Visualized vascular structures appear normal in the absence of contrast. Bony vascular foramina and canals are intact. IMPRESSION: Negative examination. Dictated by: Anthony Shah M.D. on 08/17/2025 at 13:11 Approved by: Anthony Shah M.D. on 08/17/2025 at 13:13 CT scan - head: Radiologist's Impression: PROCEDURE: CT HEAD/BRAIN WO CON INDICATIONS: fall, R pupil abnormal TECHNIQUE: Noncontrast 4.5 mm thick angled axial sections acquired from the foramen magnum to the vertex, with coronal and sagittal reformats. For radiation dose reduction, the following was used: automated exposure control, adjustment of mA and/or kV according to patient size. COMPARISON: None. FINDINGS: Image quality: Diagnostic. CSF spaces: Basal cisterns are patent. No extra-axial fluid collections. Ventricles are normal in size and shape. Brain: No midline shift. No intracranial mass effect or hemorrhage. 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 Diffuse cerebral volume loss. Patchy areas of white matter hypoattenuation often associated with small vessel ischemic disease. Intracranial atherosclerotic calcification. Skull and face: Calvarium and visualized facial bones are intact, without suspicious lesions. Sinuses: Visualized sinuses and mastoids are clear. IMPRESSION: No acute intracranial pathology. 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 Dictated by: Anthony Shah M.D. on 08/17/2025 at 13:02 Approved by: Anthony Shah M.D. on 08/17/2025 at 13:11 Right Hip X-Ray: Radiologist's Impression: PROCEDURE: XR HIP W PEL IF DONE RT 2V INDICATIONS: fall R hip and ankle pain TECHNIQUE: AP view of the pelvis and lateral view of the right hip. COMPARISON: None. FINDINGS: No acute fracture or dislocation. Mild bilateral hip osteoarthritis. Degenerative changes of the lumbar spine. IMPRESSION: No acute bony abnormality. Dictated by: Anthony Shah M.D. on 08/17/2025 at 12:53 Approved by: Anthony Shah M.D. on 08/17/2025 at 12:54 Right Ankle XR: Radiologist's Impression: PROCEDURE: XR ANKLE RT MIN 3V INDICATIONS: fall R hip and ankle pain TECHNIQUE: 3 views of the ankle were acquired. COMPARISON: None. FINDINGS: Severe degenerative changes of the tibiotalar joint and at the midfoot. Large heel spurs. Atherosclerotic calcifications. No acute fracture or dislocation. IMPRESSION: No acute fracture. Dictated by: Anthony Shah M.D. on 08/17/2025 at 12:49 Approved by: Anthony Shah M.D. on 08/17/2025 at 12:53 MDM Narrative Medical decision making narrative: 69-year-old male with a past medical history of CHF, prostate cancer, suprapubic catheter in place, uncomplicated opioid dependence, anemia, CKD, polyneuropathy, venous insufficiency who presents to the emergency department with his home caregiver for right hip and right ankle pain after a fall that occurred 4 days ago. Differential diagnosis includes but isn't limited to right hip contusion, fracture, right ankle sprain, strain, fracture, facial contusion, fracture, old stroke, ICH, etc. On exam patient is in no acute distress, nontoxic appearing, vital signs appropriate except for mildly elevated heart rate. He had a fall a few days ago where he hit the left side of his face and has been having worsening right hip and right ankle pain. He is ambulatory with a cane. He is not having any headache, there was no loss of consciousness, no blood thinner use however he does have an abnormal right pupil and he is unsure if this is baseline for him therefore we will obtain CT head, facial bones, x-ray right hip and ankle. He declines need for pain medication. X-ray ankle reveals no acute fracture, there is severe arthritis. Hip x-ray reveals no acute bony abnormality there is osteoarthritis. Head CT reveals no acute pathology, there is a chronic infarct in the left frontal lobe. Face CT reveals no acute abnormalities. Printed and discussed all results with the patient his caregiver. Discussed contusion of right hip, possible sprain right ankle in addition to underlying arthritis, discussed old left-sided infarct on head CT. Right ankle Bogdan wrap was applied, encourage patient to use walker rather than cane this week for stability, he does have pain control at home already. Advised PCP follow up and discussed ER return precautions. Patient and his caregiver verbalized understanding of all information agreeable to this plan. He is ambulatory and stable for discharge home. Discharge Plan Departure Patient Disposition: Home Clinical Impression: Arthritis Fall Qualifiers: Encounter type: initial encounter Qualified Code(s): W19.XXXA - Unspecified fall, initial encounter Contusion of face Qualifiers: Encounter type: initial encounter Qualified Code(s): S00.83XA - Contusion of other part of head, initial encounter Abrasion of knee Qualifiers: Encounter type: initial encounter Laterality: right Qualified Code(s): S80.211A - Abrasion, right knee, initial encounter Contusion of hip, right Qualifiers: Encounter type: initial encounter Qualified Code(s): S70.01XA - Contusion of right hip, initial encounter Right ankle sprain Qualifiers: Encounter type: initial encounter Involved ligament of ankle: unspecified ligament Qualified Code(s): S93.401A - Sprain of unspecified ligament of right ankle, initial encounter Instructions: DI for Eye Contusion, DI for Abrasion, DI for Ankle Pain Activity Restrictions/Additional Instructions: Dear Mr. Akers, Thank you for coming to the emergency department. Today you were evaluated for injury sustained after a fall. Imaging of your head, face, ankle and hip did not reveal any broken bones. I suspect that you have injured the soft tissues and sprain to the ankle and I would like you to rest and use a walker for stability. Please use RICE therapy for your pain in addition to meloxicam/acetaminophen. Rest the painful area. Ice the area of pain/swelling for at least 15 minutes, 4x a day. Compress the area of swelling using a brace, wrap, or splint if applied. Elevate the painful or swollen extremity by supporting it above the level of the heart with pillows when sitting or laying. Please follow up with your primary care doctor. Please cleanse the abrasions at least once a day and keep them covered with a bandage. Return to the ER if you develop fevers, severe pain or any concerns. Please follow up with your primary care doctor within the next 2-3 days for ER follow-up. (If you do not have a PCP you can call [phone]. ?to schedule an appointment with an [facility] Primary Care Provider) IF YOU DEVELOP ANY NEW OR WORSENING SYMPTOMS, RETURN TO THE ER! Please read the attached instructions, they highlight more specific treatments and interventions for you at home. Thank you for letting me participate in your care, Izabel Walter PA-C Prescriptions: No Action methenamine hippurate 1 gram tablet 1 g PO BID Qty: 180 3RF (DME) Microchamber Spacer See Rx Instructions .Route Qty: 1 0RF Rx Instructions: As directed (DME) Disabled Parking Permit See Rx Instructions .ROUTE .MEDSUPPLY Qty: 1 0RF Rx Instructions: Patient qualifies for disabled parking as per the attached form. duloxetine 30 mg capsule,delayed release(DR/EC) 30 mg PO DAILY Qty: 90 3RF omeprazole 40 mg capsule,delayed release(DR/EC) 40 mg PO DAILY Qty: 90 3RF meloxicam 7.5 mg tablet 7.5 mg PO DAILY Qty: 90 3RF torsemide 20 mg tablet 20 mg PO BID Qty: 60 4RF Rx Instructions: take in am, and again at noon/early afternoon nystatin 100,000 unit/gram powder 1 applic topical TID Qty: 60 3RF (DME) Raised Toilet Seat See Rx Instructions .Route .MEDSUPPLY Qty: 1 0RF Rx Instructions: [employer]arm albuterol sulfate 90 mcg/actuation HFA aerosol inhaler 2 puff inhalation Q6H PRN (Reason: shortness of breath or wheezing) Qty: 8.5 6RF ropinirole 2 mg tablet 2 mg PO BEDTIME Rx Instructions: 2-3 hrs before bedtime. trazodone 50 mg tablet 50 mg PO BEDTIME Rx Instructions: 2-3 hrs before bed ferrous sulfate 325 mg (65 mg iron) tablet 325 mg PO DAILY oxycodone 10 mg tablet 10 mg PO Q6H MDD 40mg (4 tabs) PRN (Reason: pain in back) Qty: 60 0RF cyclobenzaprine 10 mg tablet 10 mg PO TID PRN (Reason: muscle spasm) Qty: 30 0RF prednisone 10 mg tablet 5 mg PO DAILY Qty: 90 3RF potassium chloride 20 mEq tablet,ER particles/crystals 40 meq PO BID Qty: 360 3RF Rx Instructions: Take with meals Renacidin 1,980.6 mg-59.4 mg-980.4mg/30mL solution 30 ml irrigation TID Qty: 900 3RF Patient Comments: still prescribed but unable to take since august Referrals: Vince Goldstein MD [Primary Care Provider, Internal Medicine] Stand Alone Forms: Patient Portal/API
[2025-08-17 14:21] VITALS: BP 133/88; PULSE 98; RESP 16; TEMP 36.8; O2SAT 94
== END 2025-08-17 14:20 | disposition home or self-care (01) ==
PROVIDERS: Emergency Provider Physician Assistant; PCP Internal Medicine
DX: S00.83XA Contusion of other part of head, initial encounter (principal); S80.211A Abrasion, right knee, initial encounter; S70.01XA Contusion of right hip, initial encounter; S93.401A Sprain of unspecified ligament of right ankle, initial encounter; W01.0XXA Fall on same level from slipping, tripping and stumbling without subsequent striking against object, initial encounter; Z85.46 Personal history of malignant neoplasm of prostate; I50.9 Heart failure, unspecified; Z23 Encounter for immunization; M19.071 Primary osteoarthritis, right ankle and foot
CPT/HCPCS: 70450; 70486; 73502; 73610; 90471; 99283; 99284; 90715

== ENCOUNTER → 2025-09-04 13:59 | Outpatient (CLI) | payer MEDICARE, MEDICAID, SELFPAY | PROVIDERS: PCP Internal Medicine; Visit Provider Urology | DX: N39.0 Urinary tract infection, site not specified (principal) | CPT/HCPCS: 87086 ==

== ENCOUNTER 2025-09-15 15:34 | Inpatient (IN) | payer MEDICARE, MEDICAID, SELFPAY ==
[2025-09-15] VITALS (15 sets, daily range): BP systolic 125–180; BP diastolic 68–89; PULSE 110–124; RESP 18–22; TEMP 36.1–36.3; O2SAT 91–99; BMI 51.0
--- NOTE | 2025-09-15 15:55 | ED_ITS ---
HPI - Recheck/Abnormal Lab/Rx General Chief Complaint: Recheck/Abnormal Lab/Rx Stated Complaint: Sent by Phys; IV antibiotic? Time Seen by Provider: 09/15/25 15:54 History of Present Illness HPI narrative: 69-year-old male patient with a history of prostate cancer requiring radiation which resulted in urethral stricture and suprapubic catheterization in 2022 who was seen by Urology on 09/04/2025 for blue bag syndrome and urine was sent for culture. Apparently the culture result was not addressed until today and the plan was for a PICC line and IV antibiotics. However the line was not ordered stat and the Urology office asked the patient to just come to the ER to have this problem resolved. His older symptom is no energy. Denies fever, chills or abdominal pain. His urine is now yellow instead a blue and purple as it was last week. Urine culture grew out Pseudomonas with multi resistance. Related Data Home Medications ?Medication ?Instructions ?Recorded ?Confirmed ropinirole 2 mg tablet 2 mg PO BEDTIME 06/26/2003/05 trazodone 50 mg tablet 50 mg PO BEDTIME 06/26/20 ferrous sulfate 325 mg (65 mg 65 mg PO DAILY 09/25/22 09/15/25 iron) tablet Previous Rx's ?Medication ?Instructions ?Recorded inhalational spacing device #1 ea 09/12/24 (Microchamber spacer) Disabled Parking Permit #1 ea 12/01/24 duloxetine 30 mg capsule,delayed 30 mg PO DAILY #90 ca ps 12/22/24 release omeprazole 40 mg capsule,delayed 40 mg PO DAILY #90 ca ps 01/24/25 release potassium chloride 20 mEq 40 meq (2 x 20 mEq) PO BID # 360 01/31/25 tablet,extended release(part/cryst) tabs meloxicam 7.5 mg tablet 7.5 mg PO DAILY #90 tabs torsemide 20 mg tablet 20 mg PO BID #60 tabs Raised Toilet Seat #1 ea 05/31/25 albuterol sulfate 90 mcg/actuation 2 puff inhalation Q 6H PRN 07/13/25 aerosol inhaler shortness of breath or wheez ing #8.5 grams cyclobenzaprine 10 mg tablet 10 mg PO TID PRN muscle s pasm #30 08/14/25 tabs oxycodone 10 mg tablet 10 mg PO Q6H PRN pain in [place] #60 08/14/25 tabs cefuroxime axetil 500 mg tablet 500 mg PO BID 2 weeks #28 tabs 09/13/25 fluconazole 150 mg tablet 150 mg PO Q OTHER DAY 10 dos es #10 09/13/25 tabs nystatin 100,000 unit/gram topical 1 applic topical TI D #60 grams 09/13/25 powder Allergies Allergy/AdvReac Type Severity Reaction Status Date / Time No Known Drug Allergies Allergy Verified 08/14/25 15:46 Review of Systems Review of Systems ROS Unobtainable: All systems reviewed & are unremarkable except as noted in HPI and below Constitutional Constitutional: Reports as per HPI Genitourinary Genitourinary: Reports as per HPI Patient History Medical History Uncomplicated opioid dependence H/O adenomatous polyp of colon Chronic indwelling Montoya catheter Oxygen dependent BMI 50.0-59.9, adult (08/2024) Sepsis (06/2023) Suprapubic catheter dysfunction Sinus tachycardia Chronic renal failure, stage 3a Acquired buried penis Urinary retention Urinary incontinence Iron deficiency Polyneuropathy, unspecified Anemia of chronic disease Mixed hyperlipidemia Eczema (~1996) Restless leg syndrome (~2013) Tinnitus (~1972) Recurrent sinusitis (~2007) Frequent UTI (~2017) Pancreatitis (~1995) Obstructive sleep apnea of adult (~2013) History of kidney stones Phimosis Lower urinary tract symptoms History of prostate cancer (~2016) Chronic venous insufficiency (04/10/16) Restrictive lung disease (08/16/15) Primary insomnia (08/16/15) Morbid obesity (08/16/15) 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) Surgical History History of transurethral resection of bladder tumor (TURBT) (2023) Chronic suprapubic catheter Anesthesia History of common bile duct surgery (~1997) Status post knee surgery (~1993) Family History Brother Prostate cancer Liver cancer Father Parkinson disease Grandfather Hepatitis Grandfather History of heart disease Grandmother Cancer Social History household members: none Smoking Status: Never smoker alcohol intake: current alcohol intake frequency: 0-2 drinks per day Alcohol type: beer Exam Narrative Exam Narrative: General: Alert and conversant. No distress. Appears well nourished and well hydrated . Morbidly obese Craniofacial: No evidence of trauma. Nontender and no swelling. Eyes: PERRLA EOMI conjunctiva clear Lungs: Clear to auscultation with good air movement. No wheezing, rales or rhonchi. No respiratory distress Cardiac: mild tachycardia with regular rhythm with no appreciable murmur or gallop Abdomen: Soft, nontender with no distention or masses. Normal bowel sounds. No rebound or guarding Musculoskeletal: Exam of the extremities, axial spine and ribcage reveals no deformity, bony tenderness or swelling. Range of motion intact Neuro: Alert and oriented. Cranial nerves, motor, sensory and cerebellar all grossly intact. No focal deficit Skin: Warm and normal color. No rashes Psychological: Normal affect and interaction. No evidence of delusion or psychosis. Normal mood. Initial Vital Signs Initial Vital Signs: Vital Signs Temperature 97.0 F L 09/15/25 15:39 Pulse Rate 124 H 09/15/25 15:39 Respiratory Rate 20 09/15/25 15:39 Blood Pressure 148/80 H 09/15/25 15:39 Pulse Oximetry 97 09/15/25 15:39 Oxygen Delivery Method Room Air 09/15/25 15:39 Course Orders Ordered: ED Orders 09/15/25 15:45 BMP [Basic Metabolic Panel] Stat CBC Auto Diff [Complete Blood Count AUTO DIFF] Stat Lactate (Lactic Acid) Stat Acetaminophen (Acetaminophen 325 Mg Tablet) 650 mg PO Q6H PRN PRN Reason: Fever/Mild Pain (1-3) Last Admin: 09/15/25 21:01 Dose: 650 mg Documented By: NH Al Hydrox/Mg Hydrox/Simethicone (Mag Hydrox/Alum/Simeth 30 Ml Udc) 30 ml PO Q6HR PRN PRN Reason: Dyspepsia Albuterol (Albuterol 2.5 Mg/3 Ml Neb (Adult)) 2.5 mg INH Q6H PRN PRN Reason: Shortness Of Breath Or Wheezing Duloxetine HCl (Duloxetine 30 Mg Capsule.Dr) 30 mg PO DAILY [facility]A Enoxaparin Sodium (Enoxaparin 40 Mg/0.4 Ml Syringe) 40 mg SUBCUT DAILY [facility] Fluconazole (Fluconazole 100 Mg Tablet) 150 mg PO Q48H [facility] Meropenem 2 gm/ Sodium (Chloride) 100 mls @ 33.333 mls/hr IV Q8H [facility] Last Infusion: 09/15/25 20:52 Dose: Infused Documented By: Admin: 09/15/25 17:51 Dose: 33.333 mls/hr Documented By: ROS Sodium Chloride (Normal Saline 0.9%) 1,000 mls @ 100 mls/hr IV CONT [facility] Last Admin: 09/15/25 22:15 Dose: 100 mls/hr Documented By: NH Magnesium Hydroxide (Magnesium Hydroxide 30 Ml Udc) 30 ml PO DAILY PRN PRN Reason: Constipation Meloxicam (Meloxicam 7.5 Mg Tablet) 7.5 mg PO DAILY [facility] Naloxone HCl (Naloxone 0.4 Mg/Ml Vial) 0.2 mg IV Q2MIN PRN PRN Reason: Opiate Reversal Citric Ac- Gluconolact-Mag Carb [Renacidin] 1980.6 Mg-59.4 Mg-980 30 ml IRR TID [facility] Last Admin: 09/15/25 21:48 Dose: Not Given Documented By: NH Ondansetron HCl (Ondansetron 4 Mg Odt) 4 mg PO Q8HR PRN PRN Reason: Nausea And Vomiting Oxycodone HCl (Oxycodone Ir 10 Mg Tablet) 10 mg PO Q6H PRN PRN Reason: pain in back Pantoprazole Sodium (Pantoprazole Dr 40 Mg Tablet) 40 mg PO DAILY [facility] Potassium Chloride (Potassium Chloride 20 Meq Tab) 40 meq PO BIDWM [facility] Last Admin: 09/15/25 22:25 Dose: 40 meq Documented By: NH Prednisone (Prednisone 5 Mg Tablet) 5 mg PO DAILY [facility] Ropinirole HCl (Ropinirole 1 Mg Tablet) 2 mg PO BEDTIME [facility] Last Admin: 09/15/25 21:53 Dose: 2 mg Documented By: NH Torsemide (Torsemide 10 Mg Tablet) 20 mg PO BID [facility] Last Admin: 09/15/25 21:52 Dose: 20 mg Documented By: NH Trazodone HCl (Trazodone 50 Mg Tablet) 50 mg PO BEDTIME [facility] Last Admin: 09/15/25 21:53 Dose: 50 mg Documented By: SHELLI Discontinued Medications Sodium Chloride (Normal Saline 0.9%) 500 mls @ 1,000 mls/hr IV BOLUS ONE Stop: 09/15/25 16:46 Last Infusion: 09/15/25 17:20 Dose: Infused Documented By: Admin: 09/15/25 16:39 Dose: 1,000 mls/hr Documented By: ROS Torsemide (Torsemide 10 Mg Tablet) 20 mg PO NOW ONE Stop: 09/15/25 17:23 Last Admin: 09/15/25 17:32 Dose: 20 mg Documented By: ROS Vital Signs Vital signs: Vital Signs - 8 hr 09/15/25 15:39 09/15/25 15:57 09/15/25 16:00 Temperature 97.0 F L Pulse Rate 124 H 117 H Respiratory Rate 20 Blood Pressure 148/80 H 146/78 H Pulse Oximetry 97 96 Oxygen Delivery Method Room Air 09/15/25 16:00 09/15/25 16:30 09/15/25 16:30 Temperature Pulse Rate 114 H 110 H Respiratory Rate Blood Pressure 162/89 H Pulse Oximetry 95 96 Oxygen Delivery Method 09/15/25 17:00 09/15/25 17:01 09/15/25 17:01 Temperature Pulse Rate 111 H 113 H Respiratory Rate Blood Pressure 174/85 H Pulse Oximetry 96 95 Oxygen Delivery Method MDM - Recheck/Abnormal Lab/Rx Lab Data Attestation: I reviewed the patient's lab results. 09/15/25 15:45 09/15/25 15:45 Labs: Lab Results 09/15/25 Range/Units 15:45 WBC 9.2 (4.5-11.0) X10^3/uL RBC 3.67 L (4.5-5.9) X10^6/uL Hgb 11.0 L (13.5-17.5) g/dL Hct 34.3 L (41-53) % MCV 93.4 (80-100) fL MCH 30.0 (26-34) PG MCHC 32.2 (30-36) % RDW 17.8 H (11.6-14.8) % Plt Count 136 L (150-400) X10^3/uL Neut % (Auto) 67.0 (50-75) % Lymph % (Auto) 21.7 L (25-40) % [place] % (Auto) 7.1 (3-14) % Eos % (Auto) 3.6 (2-4) % Baso % (Auto) 0.6 (0-2) % Neut # (Auto) 6200 (7489-5562) /uL Lymph # (Auto) 2000 (8763-8860) /uL [place] # (Auto) 700 (0-900) /uL Eos # (Auto) 300 (0-450) /uL Baso # (Auto) 100 (0-100) /uL Sodium 136 L (137-145) mmol/L Potassium 3.9 (3.4-5.1) mmol/L Chloride 101 (98-107) mmol/L Carbon Dioxide 24 (22-32) mmol/L BUN 14 (9-20) mg/dL Creatinine 1.14 (0.66-1.25) mg/dL Estimated GFR > 60 (>60) mL/min BUN/Creatinine Ratio 12.3 (6-22) Glucose 141 H (70-99) mg/dL Lactate 3.5 H (0.7-2.1) mmol/L Calcium 9.8 (8.4-10.2) mg/dL MDM Narrative Medical decision making narrative: 16:10 I discussed the patient's care with Dr. More, urology who went over the cultures from his urine specimens of September 04. He asked that the patient be admitted to hospitalist service. Patient presented with the tachycardia of 124 which came down to 107 with fluids. His lactate is elevated and thus he is being treated as Pseudomonas UTI with sepsis. 17:05 I discussed the patient's care with pharmacy, looking at the sensitivities on this Pseudomonas culture and the recommendation is for meropenem and will be dosed by pharmacy. I also discussed the patient's care with Dr. Quiñonez's, who agrees to admit the patient for Pseudomonas UTI with sepsis. Patient is currently afebrile with slight tachycardia but normotensive. Blood cultures ordered prior to antibiotic. Patient has been on 2 days of cefuroxime for sinusitis. He told him to stop his diuretic while taking the medication. He has gained 4 lb because of that. When I asked him about his symptoms he said he had a little bit of mucus and blood out of his nose but no fevers, chills or sinus pain. His sinuses are nontender. My opinion he does not meet criteria for bacterial sinusitis and does not need the cefuroxime. I have restarted the torsemide because of his fluid retention. Patient is admitted to the hospital has an inpatient as documented above for Pseudomonas UTI with sepsis. Currently stable. Discharge Plan Departure Patient Disposition: Admitted As Inpatient Clinical Impression: Sepsis due to urinary tract infection, Pseudomonas urinary tract infection Admit Date/Time: 09/15/25 17:19 Admit Provider: Hao Quiñonez
[2025-09-15 16:11] LABS: Add Manual Diff / Slide Review NO; Hematocrit 34.3 % (41-53); Hemoglobin 11.0 g/dL (13.5-17.5); Lymphocytes Absolute Auto 2000 /uL (1100-4500); Mean Corpuscular HGB Conc 32.2 % (30-36); Mean Corpuscular Hemoglobin 30.0 PG (26-34); Mean Corpuscular Volume 93.4 fL (80-100); Platelet Count 136 X10^3/uL (150-400)
[2025-09-15 16:16] LABS: Blood Urea Nitrogen 14 mg/dL (9-20); Calcium 9.8 mg/dL (8.4-10.2); Carbon Dioxide 24 mmol/L (22-32); Chloride 101 mmol/L (98-107); Estimated Glomerular Filt Rate > 60 mL/min (>60); Glucose 141 mg/dL (70-99); HEMOLYSIS < 15 (0-50); Lactate (Lactic Acid) 3.5 mmol/L (0.7-2.1); Potassium 3.9 mmol/L (3.4-5.1); Sodium 136 mmol/L (137-145)
[2025-09-15] MEDS: SODIUM CHLORIDE 0.9% 500 ML 1000 ML IV (16:39)
[2025-09-15] MEDS: TORSEMIDE 10 MG TABLET 20 MG PO ×2 (17:32→21:52)
[2025-09-15 17:44] LABS: Reflexed Lactate in 2 Hours Y
[2025-09-15] MEDS: MEROPENEM 2 GM in SODIUM CHLORIDE 0.9% 100 ML IV (17:51)
[2025-09-15 18:04] LABS: Lactate 2HR (Lactic Acid Rflx) 2.7 mmol/L (0.7-2.1)
--- NOTE | 2025-09-15 19:08 | PM.HP.1 ---
History of Present Illness History of Present Illness Date Patient Seen: 09/15/25 Time Patient Seen: 19:09 Date of Onset of Symptoms: 09/01/25 Chief complaint: Sent by Phys; IV antibiotic? Narrative: Patient is a 69-year-old male who I am cross covering for Dr. Goldstein who apparently recently saw urologist for not feeling well. He has been increasingly weak. And urine had turned blue. Has a suprapubic catheter which he has had difficulty with chronic infections. He was started on antibiotics and cultured he would developed Pseudomonas in his urine. He was not responding to treatment and was increasingly weak. Had a fall. No complications from that. It was a gentle fall. But he has been increasingly weak. Patient presented with no fever but was tachycardic low blood pressure. Was given aggressive fluid management in the emergency room. Recently had his catheter changed. There was no other significant new changes or complaints. He has not had any appetite. Just mostly been sleeping. He denies any fevers chills nausea vomiting although he has felt like he has had decreased appetite. He has had no abdominal pain. No chest pain. No shortness of breath. Patient has had no chest pain. Apparently had a recent workup for coronary artery disease which was negative. His last echo showed a normal ejection fraction but he is on torsemide for what he believes is congestive heart failure. Mostly swelling in his ankles. There was no other change. Has had some issues with potassium. Otherwise no changes or complaints. He has not had any diarrhea. Or other changes. [facility] Medical History Uncomplicated opioid dependence H/O adenomatous polyp of colon Chronic indwelling Montoya catheter Oxygen dependent BMI 50.0-59.9, adult (08/2024) Sepsis (06/2023) Suprapubic catheter dysfunction Sinus tachycardia Chronic renal failure, stage 3a Acquired buried penis Urinary retention Urinary incontinence Iron deficiency Polyneuropathy, unspecified Anemia of chronic disease Mixed hyperlipidemia Eczema (~1996) Restless leg syndrome (~2013) Tinnitus (~1972) Recurrent sinusitis (~2007) Frequent UTI (~2017) Pancreatitis (~1995) Obstructive sleep apnea of adult (~2013) History of kidney stones Phimosis Lower urinary tract symptoms History of prostate cancer (~2016) Chronic venous insufficiency (04/10/16) Restrictive lung disease (08/16/15) Primary insomnia (08/16/15) Morbid obesity (08/16/15) 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) Surgical History History of transurethral resection of bladder tumor (TURBT) (2023) Chronic suprapubic catheter Anesthesia History of common bile duct surgery (~1997) Status post knee surgery (~1993) Family History Brother Prostate cancer Liver cancer Father Parkinson disease Grandfather Hepatitis Grandfather History of heart disease Grandmother Cancer Social History household members: none Smoking Status: Never smoker alcohol intake: current Meds Home Medications and Allergies Home Medications ?Medication ?Instructions ?Recorded ?Confirmed ?Type ropinirole 2 mg tablet 2 mg PO BEDTIME 06/26/20 09/04/25 History trazodone 50 mg tablet 50 mg PO BEDTIME 06/26/20 09/04/25 History ferrous sulfate 325 mg (65 mg 325 mg PO DAILY 09/25/22 09/04/25 History iron) tablet inhalational spacing device #1 ea 09/12/24 09/04/25 Rx (Microchamber spacer) Disabled Parking Permit #1 ea 12/01/24 09/04/25 Rx duloxetine 30 mg capsule,delayed 30 mg PO DAILY #90 caps 12/22/24 09/04/25 Rx release omeprazole 40 mg capsule,delayed 40 mg PO DAILY #90 caps 01/24/25 09/04/25 Rx release potassium chloride 20 mEq 40 meq (2 x 20 mEq) PO BID #360 01/31/25 09/04/25 Rx tablet,extended release(part/cryst) tabs meloxicam 7.5 mg tablet 7.5 mg PO DAILY #90 tabs 03/28/25 09/04/25 Rx torsemide 20 mg tablet 20 mg PO BID #60 tabs 03/28/25 09/04/25 Rx Raised Toilet Seat #1 ea 05/31/25 09/04/25 Rx albuterol sulfate 90 mcg/actuation 2 puff inhalation Q6H PRN 07/13/25 09/04/25 Rx aerosol inhaler shortness of breath or wheezing #8.5 grams cyclobenzaprine 10 mg tablet 10 mg PO TID PRN muscle spasm #30 08/14/25 09/04/25 Rx tabs oxycodone 10 mg tablet 10 mg PO Q6H PRN pain in back #60 08/14/25 09/04/25 Rx tabs cefuroxime axetil 500 mg tablet 500 mg PO BID 2 weeks #28 tabs 09/13/25 09/15/25 Rx fluconazole 150 mg tablet 150 mg PO Q OTHER DAY 10 doses #10 09/13/25 Rx tabs nystatin 100,000 unit/gram topical 1 applic topical TID #60 grams 09/13/25 Rx powder Allergies Allergy/AdvReac Type Severity Reaction Status Date / Time No Known Drug Allergies Allergy Verified 08/14/25 15:46 Review of Systems Review of Systems Narrative: Negative except for above Exam Vital Signs (past 8 hours): - 09/15/25 15:39 09/15/25 15:57 09/15/25 16:00 Temperature 97.0 F L Pulse Rate 124 H 117 H Respiratory Rate 20 Blood Pressure 148/80 H 146/78 H Pulse Oximetry 97 96 Oxygen Delivery Method Room Air 09/15/25 16:00 09/15/25 16:30 09/15/25 16:30 Temperature Pulse Rate 114 H 110 H Respiratory Rate Blood Pressure 162/89 H Pulse Oximetry 95 96 Oxygen Delivery Method 09/15/25 17:00 09/15/25 17:01 09/15/25 17:01 Temperature Pulse Rate 111 H 113 H Respiratory Rate Blood Pressure 174/85 H Pulse Oximetry 96 95 Oxygen Delivery Method 09/15/25 17:30 09/15/25 17:31 09/15/25 17:31 Temperature Pulse Rate 110 H 112 H Respiratory Rate Blood Pressure 180/87 H Pulse Oximetry 98 96 Oxygen Delivery Method 09/15/25 17:45 09/15/25 17:45 09/15/25 18:00 Temperature Pulse Rate 111 H 112 H Respiratory Rate Blood Pressure 153/68 H Pulse Oximetry 99 94 Oxygen Delivery Method 09/15/25 18:01 09/15/25 18:01 09/15/25 18:30 Temperature Pulse Rate 111 H Respiratory Rate Blood Pressure 141/70 H Pulse Oximetry 94 91 Oxygen Delivery Method 09/15/25 18:31 09/15/25 18:31 Temperature Pulse Rate 122 H Respiratory Rate Blood Pressure 125/84 Pulse Oximetry 96 Oxygen Delivery Method Oxygen Delivery Method Room Air Narrative Exam Narrative: Alert obese male in no acute distress sitting in wheelchair. HEENT exam shows mucous membranes mildly dry. Conjunctivae clear neck supple without adenopathy JVD or bruits. Lungs are clear. Heart is regular rate and rhythm without murmurs clicks rubs or gallops. Abdomen is soft positive bowel sounds nontender does have an indwelling Montoya extremities with some hyperpigmentation but trace edema. Neurologic exam is intact. He is alert oriented interactive Objective Labs 09/15/25 15:45 09/15/25 15:45 Labs: Laboratory Results - last 24 hr 09/15/25 09/15/25 15:45 17:45 WBC 9.2 RBC 3.67 L Hgb 11.0 L Hct 34.3 L MCV 93.4 MCH 30.0 MCHC 32.2 RDW 17.8 H Plt Count 136 L Neut % (Auto) 67.0 Lymph % (Auto) 21.7 L [place] % (Auto) 7.1 Eos % (Auto) 3.6 Baso % (Auto) 0.6 Neut # (Auto) 6200 Lymph # (Auto) 2000 [place] # (Auto) 700 Eos # (Auto) 300 Baso # (Auto) 100 Sodium 136 L Potassium 3.9 Chloride 101 Carbon Dioxide 24 BUN 14 Creatinine 1.14 Estimated GFR > 60 BUN/Creatinine Ratio 12.3 Glucose 141 H Lactate 3.5 H 2.7 H Calcium 9.8 Assessment & Plan Assessment & Plan narrative: Sepsis syndrome. Secondary to Pseudomonas urinary tract infection from indwelling Montoya. Affected systems fatigue, increased heart rate, decreased blood pressure. No other significant change at this time. Pulses improved with fluid. Do not want to be too aggressive with fluid given his history of congestive heart failure at least difficulty managing fluids. Will give gentle hydration with 100 cc an hour and continue to follow.Will begin antibiotics after discussion with pharmacy by emergency room doctor elected for meropenem. We will watch closely. And follow. Indwelling Montoya suprapubic catheter secondary to radiation urethral damage. Appears to be stable at this time. Urination appears to be normal in color at this time and will continue to follow. History of congestive heart failure. I suspect this is more related to his weight but will have to see how things go. We will be gentle with his hydration will give him over hydration and we will continue his torsemide which has worked well for him in the past. He feels as if he is up 4 lb. Although his exam is reassuring at this time will continue to follow. Gentle diuresis to see how things are going. Chronic renal failure. Patient actually has pretty good numbers today. He seems to be doing well and we will follow. Morbid obesity. Many of his problems are coming from that will have to watch and see. But at this point will continue to support him. Follow-up with his usual doctor for discussion on treatment. Questionable sinusitis. At this point he has really no symptoms. He will be on antibiotics will just see how he does. If he has any recurrent symptoms will consider alternative treatment Anemia of chronic disease. Has been stable. He is slightly down today but will have to see how things go. We will recheck in a.m.. Restrictive lung disease at this point he is stable. Will continue to follow. Continue inhaler as needed. Degenerative arthritis. I think we are okay to continue his meloxicam. Will see how things go. Code status DNR GI prophylaxis on PPI will follow Disposition. Patient will need to be followed in the hospital at least until we continue to see his pulse rate stabilize his fluid requirements stabilize and see some response to how he feels. At that point hopefully we can get a PICC line tomorrow and see how he does. Anticipate he will be here until Thursday. 75 minutes spent with patient chart review discussion with emergency room doctor orders dictation Time-Based Coding :: [TOTAL MINUTES] spent with patient and on the chart (including review of chart, obtaining history, exam, reviewing outside data, placing orders, documenting exam and treatment plan, and counseling patient) on [DATE]. Quality VTE Deep Vein Thrombosis/Pulmonary Embolism Present on Admission: No
[2025-09-15] MEDS: ACETAMINOPHEN 325 MG TABLET 650 MG PO (21:01)
--- NOTE | 2025-09-15 22:08 | PC.NURSE ---
MD Shepard does want pt to have NS @ 100ml/hr, while taking diuretics
[2025-09-15] MEDS: SODIUM CHLORIDE 0.9% 1,000 ML 100 ML IV (22:15)
[2025-09-15] MEDS: POTASSIUM CHLORIDE 20 MEQ TAB 40 MEQ PO (22:25)
[2025-09-15 23:52] LABS: Lactate (Lactic Acid) 1.6 mmol/L (0.7-2.1)
[2025-09-16] MEDS: MEROPENEM 2 GM in SODIUM CHLORIDE 0.9% 100 ML IV ×3 (00:51→17:56)
[2025-09-16 05:15] VITALS: O2SAT 95
[2025-09-16 06:07] LABS: Add Manual Diff / Slide Review NO; Hematocrit 32.8 % (41-53); Hemoglobin 10.7 g/dL (13.5-17.5); Lymphocytes Absolute Auto 1100 /uL (1100-4500); Mean Corpuscular HGB Conc 32.7 % (30-36); Mean Corpuscular Hemoglobin 30.4 PG (26-34); Mean Corpuscular Volume 92.8 fL (80-100); Platelet Count 123 X10^3/uL (150-400)
[2025-09-16 06:20] LABS: Alanine Aminotransferase 23 IU/L (<50); Albumin 3.8 g/dL (3.5-5.0); Albumin Globulin Ratio 1.0 (1.0-2.8); Alkaline Phosphatase 151 U/L (38-126); Blood Urea Nitrogen 17 mg/dL (9-20); Calcium 9.4 mg/dL (8.4-10.2); Carbon Dioxide 28 mmol/L (22-32); Chloride 101 mmol/L (98-107); Estimated Glomerular Filt Rate > 60 mL/min (>60); Globulin 3.7 g/dL (1.7-4.1); Glucose 139 mg/dL (70-99); HEMOLYSIS < 15 (0-50); Potassium 4.0 mmol/L (3.4-5.1); Sodium 138 mmol/L (137-145); Total Protein 7.5 g/dL (6.3-8.2)
[2025-09-16 07:20] VITALS: O2SAT 96
[2025-09-16 08:00] VITALS: BP 123/78; PULSE 113; RESP 18; TEMP 36.3; O2SAT 98
--- NOTE | 2025-09-16 08:10 | P.PN_ITS ---
Subjective Subjective Date Patient Seen: 09/16/25 Time Patient Seen: 08:10 Interval history: Patient seen in follow-up of sepsis syndrome and Pseudomonas UTI. Patient feeling better this morning. Little more energy. Not as fatigued. Did not sleep well. But no pain or other change. Exam Vital Signs (past 8 hours): - 09/16/25 05:15 09/16/25 08:00 Temperature 97.4 F L Pulse Rate 113 H Respiratory Rate 18 Blood Pressure 123/78 Pulse Oximetry 95 98 Oxygen Delivery Method Room Air Oxygen Delivery Method Room Air Oxygen Flow Rate 0 Narrative Exam Narrative: Alert obese male in no acute distress Lungs are clear heart is regular rate rhythm abdomen is soft positive bowel sounds nontender extremities is without edema Objective Labs 09/16/25 05:40 09/16/25 05:40 Labs: Laboratory Results - last 24 hr 09/15/25 09/15/25 09/15/25 15:45 17:45 23:25 WBC 9.2 RBC 3.67 L Hgb 11.0 L Hct 34.3 L MCV 93.4 MCH 30.0 MCHC 32.2 RDW 17.8 H Plt Count 136 L Neut % (Auto) 67.0 Lymph % (Auto) 21.7 L [place] % (Auto) 7.1 Eos % (Auto) 3.6 Baso % (Auto) 0.6 Neut # (Auto) 6200 Lymph # (Auto) 2000 [place] # (Auto) 700 Eos # (Auto) 300 Baso # (Auto) 100 Sodium 136 L Potassium 3.9 Chloride 101 Carbon Dioxide 24 BUN 14 Creatinine 1.14 Estimated GFR > 60 BUN/Creatinine Ratio 12.3 Glucose 141 H Lactate 3.5 H 2.7 H 1.6 Calcium 9.8 Total Bilirubin AST ALT Alkaline Phosphatase Total Protein Albumin Globulin Albumin/Globulin Ratio 09/16/25 05:40 WBC 7.0 RBC 3.54 L Hgb 10.7 L Hct 32.8 L MCV 92.8 MCH 30.4 MCHC 32.7 RDW 17.7 H Plt Count 123 L Neut % (Auto) 70.3 Lymph % (Auto) 16.0 L [place] % (Auto) 7.2 Eos % (Auto) 5.7 H Baso % (Auto) 0.8 Neut # (Auto) 5000 Lymph # (Auto) 1100 [place] # (Auto) 500 Eos # (Auto) 400 Baso # (Auto) 100 Sodium 138 Potassium 4.0 Chloride 101 Carbon Dioxide 28 BUN 17 Creatinine 1.27 H Estimated GFR > 60 BUN/Creatinine Ratio 13.4 Glucose 139 H Lactate Calcium 9.4 Total Bilirubin 0.9 AST 24 ALT 23 Alkaline Phosphatase 151 H Total Protein 7.5 Albumin 3.8 Globulin 3.7 Albumin/Globulin Ratio 1.0 PFSH Medical History Uncomplicated opioid dependence H/O adenomatous polyp of colon Chronic indwelling Montoya catheter Oxygen dependent BMI 50.0-59.9, adult (08/2024) Sepsis (06/2023) Suprapubic catheter dysfunction Sinus tachycardia Chronic renal failure, stage 3a Acquired buried penis Urinary retention Urinary incontinence Iron deficiency Polyneuropathy, unspecified Anemia of chronic disease Mixed hyperlipidemia Eczema (~1996) Restless leg syndrome (~2013) Tinnitus (~1972) Recurrent sinusitis (~2007) Frequent UTI (~2017) Pancreatitis (~1995) Obstructive sleep apnea of adult (~2013) History of kidney stones Phimosis Lower urinary tract symptoms History of prostate cancer (~2016) Chronic venous insufficiency (04/10/16) Restrictive lung disease (08/16/15) Primary insomnia (08/16/15) Morbid obesity (08/16/15) 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 Actually seems to be improved on current antibiotic. Fluid status seems to be improved heart rate is recovering still slightly elevated but seems improved blood pressure is stable. Will discontinue hydration down and watch closely. But at this point feel like we have a good place. Can not be too aggressive secondary as congestive heart failure and edema. Chronic renal failure. Improved. Will continue to follow Anemia of chronic disease. Patient has slightly dropped his hematocrit but I feel like it is probably secondary to hydration. Will rechecked tomorrow to make sure stable. UTI. Pseudomonas. Currently on meropenem. At this point will continue for least 10 days. But will have to see how things go. Hopefully we can do some of this at home. Sleep apnea. On BiPAP. We will continue. History of sinusitis. No evidence of active disease will continue to follow Morbid obesity. No change at this time. Restrictive lung disease appears to be stable. GI prophylaxis on PPI Code status rediscussed with the patient desires DNR. DVT prophylaxis on Lovenox Disposition. Long discussion with social service. At this point will hopefully get PICC line today. Goal be to be potentially going on Thursday with IV antibiotics if that is possible. 50 minutes spent with the patient social service dictation ordered Time-Based Coding :: [TOTAL MINUTES] spent with patient and on the chart (including review of chart, obtaining history, exam, reviewing outside data, placing orders, documenting exam and treatment plan, and counseling patient) on [DATE]. Quality VTE Deep Vein Thrombosis/Pulmonary Embolism Present on Admission: No
[2025-09-16] MEDS: PANTOPRAZOLE DR 40 MG TABLET PO (09:14)
[2025-09-16] MEDS: TORSEMIDE 10 MG TABLET 20 MG PO ×2 (09:16→20:10)
[2025-09-16] MEDS: MELOXICAM 7.5 MG TABLET PO (09:16)
[2025-09-16] MEDS: ACETAMINOPHEN 325 MG TABLET 650 MG PO ×2 (09:16→17:55)
[2025-09-16] MEDS: POTASSIUM CHLORIDE 20 MEQ TAB 40 MEQ PO ×2 (09:18→17:54)
[2025-09-16] MEDS: ENOXAPARIN 40 MG/0.4 ML SYRINGE SUBCUT ×2 (09:19→20:10)
[2025-09-16] MEDS: FLUCONAZOLE 100 MG TABLET 150 MG PO (09:36)
--- NOTE | 2025-09-16 13:17 | DI.RAD.S_ITS ---
PROCEDURE: XR CHEST FOR PICC 1V INDICATIONS: PICC placement verification COMPARISON: [facility], DMITRIY, XR CHEST FOR PICC 1V, 01/26/2025, 17:15. [facility], CR, XR CHEST 1V, 01/22/2025, 10:35. FINDINGS: PICC was placed by the intravenous therapy team from the right upper side. Fluoroscopic spot film demonstrates the tip of PICC projecting to the area of mid SVC. IMPRESSION: Tip of PICC projects to the area of mid SVC. Dictated by: Oswaldo Laguerre M.D. on 09/16/2025 at 13:54 Approved by: Oswaldo Laguerre M.D. on 09/16/2025 at 13:55
--- NOTE | 2025-09-16 13:28 | CM.DANOTE ---
Addendum entered by PATIENCE Boyd 09/16/25 15:25: ADD: Met bedside with pt and explained role and he confirms that he still lives at home in [place] and he has [facility]Gs 5x week for 8 hrs a day and due to his arthritis and neuropathy in his hands they assist with meal prep, chores, bathing, dressing and transportation. Pt still able to drive himself once a week to [employer] on Sundays. SW discussed need for IV Abx at d/c and since Q8 not able to utilize outpt infusion clinic. Discussed option of SNF vs home infusion. Pt's preference is to avoid SNF as he has been ambulating independently in room and does not want to lose his EMILY CGs if he went to SNF. Pt feels that he could do home infusion with support of his [facility] CGs and requests [facility] RN (he just finished [facility] for PT recently). Plan: SW to follow closely for [facility] review for insurance coverage and availability for home infusion and to make [facility] referral as well. BF Original Note: Patient is a 69 yo male who was admitted INPT Status on 09/15/25 for Weakness/Urosepsis. Pt has [facility] M[facility] and [facility] for insurance and his PCP is Dr. Vince Goldstein. EMR was reviewed. Per pt with hx of suprapubic ni cath and recurrent UTIs and admitted for Pseudomonas UTI and will need IV Abx Meropenem Q8 at d/c and anticipate possible home infusion. Pt last admitted a few months ago in January 2025 and needed IV abx at that time and [facility] accepted and obtained auth but then pt improved and declined SNF and was able to d/c home on po abx and new [facility] and his [facility] CGs. SW attempted to meet bedside with pt but currently getting his PICC placed bedside and waiting for xray to confirm correct placement. SW made initial referral to [facility] to review for Meropenem coverage by [facility] Medicare. Plan: SW to meet bedside with pt after PICC placement confirmed to discuss discharge on IV abx. PATIENCE Boyd Discharge Planning/Care Management CM Discharge Assessment Start: 09/15/25 18:39 Freq: Status: Active Protocol: Document 09/16/25 13:25 BF (Rec: 09/16/25 13:28 BF [id number]) Discharge Planning Assessment Assigned Discharge PATIENCE Gonzalez Pourer Provider Dr. Vince Goldstein Insurance Medicare,[facility] Advance Directives? No Advance Directives No on File History Provided By Patient,Medical Record Has Patient been No admitted in last 30 days? Comment last admit in January 2025 and went home with EMILY CG and [facility] Prior Living House Arrangements Household Members none Type of Relies on Others transporation used prior to admit Independent with ADL Yes: somewhat, has EMILY 's Is patient alert and Yes oriented? Needs Assistance Meal Prep,Home Chores / Shopping With Caregiver for No Another Comment ownes wheelchair/walker but only uses cane at baseline Barriers to Yes Discharge Comment Needs IV abx at d/c Discharge Plan Home Community Services Home Health Nurse,IV Therapy Transportation Pt states ANITRA Allen or a local friend can transport him Arrangement home at d/c Referrals Initiated Other Additional Comment [facility] referral made, hx of [facility] Whiteboard Updated Yes in Patient Room with name and ext. # of Manager Recruitment Review Status In Process Please Provide Date 09/16/25 Initial DC Assessment Was Performed Next Review Type Continued Stay Review
[2025-09-16 19:00] VITALS: O2SAT 94
[2025-09-16 20:00] VITALS: BP 157/79; PULSE 120; RESP 18; TEMP 36.2; O2SAT 92
[2025-09-16] MEDS: SODIUM CHLORIDE 0.9% FLUSH 10 ML IV (21:10)
[2025-09-16] MEDS: LIDOCAINE 5% PATCH 2 EACH TOP (21:31)
[2025-09-16] MEDS: CYCLOBENZAPRINE 10 MG TABLET PO (21:31)
[2025-09-17] MEDS: MEROPENEM 2 GM in SODIUM CHLORIDE 0.9% 100 ML IV ×3 (02:01→17:05)
[2025-09-17 07:00] VITALS: O2SAT 92
[2025-09-17 07:50] VITALS: BP 142/88; PULSE 118; RESP 20; TEMP 36; O2SAT 94
[2025-09-17] MEDS: SODIUM CHLORIDE 0.9% FLUSH 10 ML IV ×2 (08:26→20:54)
[2025-09-17] MEDS: MELOXICAM 7.5 MG TABLET PO (08:26)
[2025-09-17] MEDS: PANTOPRAZOLE DR 40 MG TABLET PO (08:26)
[2025-09-17] MEDS: TORSEMIDE 10 MG TABLET 20 MG PO ×2 (08:26→20:54)
[2025-09-17] MEDS: POTASSIUM CHLORIDE 20 MEQ TAB 40 MEQ PO ×2 (08:26→17:05)
[2025-09-17] MEDS: ENOXAPARIN 40 MG/0.4 ML SYRINGE SUBCUT ×2 (08:27→20:52)
--- NOTE | 2025-09-17 09:20 | P.PN_ITS ---
Subjective Subjective Date Patient Seen: 09/17/25 Time Patient Seen: 09:20 Interval history: Patient seen in follow-up of sepsis syndrome Pseudomonas urinary tract infection. Overall doing pretty well today. Had his PICC line placed. Thursday they put it in his dominant arm so he may have difficulty looking up his IVs with his left hand. Will have to see how that goes. No other changes. Back pain last night we increased his pain medicine every 5 hours and gave some muscle relaxant and he seems to be doing well. No other changes or complaints Exam Vital Signs (past 8 hours): - 09/17/25 07:50 Temperature 96.8 F L Pulse Rate 118 H Respiratory Rate 20 Blood Pressure 142/88 H Pulse Oximetry 94 Oxygen Flow Rate 0 Oxygen Delivery Method Room Air Oxygen Flow Rate 0 Narrative Exam Narrative: Alert obese male in no acute distress Lungs are clear heart is regular rate and rhythm Objective Labs 09/16/25 05:40 09/16/25 05:40 [facility] Medical History Uncomplicated opioid dependence H/O adenomatous polyp of colon Chronic indwelling Montoya catheter Oxygen dependent BMI 50.0-59.9, adult (08/2024) Sepsis (06/2023) Suprapubic catheter dysfunction Sinus tachycardia Chronic renal failure, stage 3a Acquired buried penis Urinary retention Urinary incontinence Iron deficiency Polyneuropathy, unspecified Anemia of chronic disease Mixed hyperlipidemia Eczema (~1996) Restless leg syndrome (~2013) Tinnitus (~1972) Recurrent sinusitis (~2007) Frequent UTI (~2017) Pancreatitis (~1995) Obstructive sleep apnea of adult (~2013) History of kidney stones Phimosis Lower urinary tract symptoms History of prostate cancer (~2016) Chronic venous insufficiency (04/10/16) Restrictive lung disease (08/16/15) Primary insomnia (08/16/15) Morbid obesity (08/16/15) 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 No fever. White count is normal pulses improved this point we seemed to be doing well. I discontinue fluids yesterday's so we will stay with what we are doing seems to be trending in the right direction. We know where on the right antibiotics. No evidence of other changes. Will follow from there. Back pain. Patient with moderate amount of back pain yesterday which seems to be controlled now. Having a little bit of pain in the back of his legs which I do not think it is radicular and will use topical for that. Also continue lidocaine patch on back. Will see how that goes. But at this point I think it is just related to his bed and being in the hospital he has had chronic disease and will just have to follow this. Anemia of chronic disease. Interest things dropped a little bit more today. Will check guaiac. Rechecked in a.m.. I do not think he is losing blood. Unlikely related to the antibiotic but will have to see if it continues to drop we will need to make some adjustments and work this up further. Will follow up guaiac and then proceed from there. We are not giving him fluid. We will continue with his diuresis. UTI. Pseudomonas. Currently on meropenem we will see how things go and follow from there. He understands. Questions answered. Chronic renal failure. Stable. Will rechecked tomorrow. Make sure no changes. History of cyanosis cyanosis no evidence of active disease. Will continue to follow. Morbid obesity. No change at this time. Restrictive lung disease secondary to morbid obesity overall stable. Will follow. Doubt there will be a lot of change. Not motivated seriously to lose weight. Sleep apnea. Stable on BiPAP. GI prophylaxis on PPI Code status DNR. DVT prophylaxis. On Lovenox Disposition. Will all be related to whether or not patient can a be capable of attaching his IV and be whether we can get set up with outpatient medication. He will definitely need 7-10 days of treatment and if he is unable to do that he will be here I suspect. Working towards home IV therapy. We will have to work towards getting him capable of attaching an IV which will have to practice here before going home and will see how it goes. Discussed with social service Time-Based Coding :: [TOTAL MINUTES] spent with patient and on the chart (including review of chart, obtaining history, exam, reviewing outside data, placing orders, documenting exam and treatment plan, and counseling patient) on [DATE]. Quality VTE Deep Vein Thrombosis/Pulmonary Embolism Present on Admission: No
[2025-09-17] MEDS: CYCLOBENZAPRINE 10 MG TABLET PO ×2 (11:20→20:54)
[2025-09-17] MEDS: DICLOFENAC 1% GEL 100 GM 1 APPLIC TOP ×3 (14:15→20:53)
[2025-09-17 19:00] VITALS: O2SAT 92
[2025-09-17 20:00] VITALS: BP 143/93; PULSE 115; RESP 24; TEMP 36.4; O2SAT 92
[2025-09-17] MEDS: LIDOCAINE 5% PATCH 2 EACH TOP (20:55)
[2025-09-18] MEDS: MEROPENEM 2 GM in SODIUM CHLORIDE 0.9% 100 ML IV ×3 (01:48→17:06)
[2025-09-18] MEDS: ACETAMINOPHEN 325 MG TABLET 650 MG PO ×2 (05:02→20:58)
[2025-09-18] MEDS: CYCLOBENZAPRINE 10 MG TABLET PO ×2 (05:02→20:58)
[2025-09-18 06:25] LABS: Add Manual Diff / Slide Review NO; Hematocrit 32.4 % (41-53); Hemoglobin 10.6 g/dL (13.5-17.5); Lymphocytes Absolute Auto 1000 /uL (1100-4500); Mean Corpuscular HGB Conc 32.7 % (30-36); Mean Corpuscular Hemoglobin 30.5 PG (26-34); Mean Corpuscular Volume 93.3 fL (80-100); Platelet Count 141 X10^3/uL (150-400)
[2025-09-18 06:35] LABS: Alanine Aminotransferase 28 IU/L (<50); Albumin 3.9 g/dL (3.5-5.0); Albumin Globulin Ratio 1.0 (1.0-2.8); Alkaline Phosphatase 146 U/L (38-126); Blood Urea Nitrogen 18 mg/dL (9-20); Calcium 9.3 mg/dL (8.4-10.2); Carbon Dioxide 30 mmol/L (22-32); Chloride 98 mmol/L (98-107); Estimated Glomerular Filt Rate 50 mL/min (>60); Globulin 3.8 g/dL (1.7-4.1); Glucose 127 mg/dL (70-99); HEMOLYSIS < 15 (0-50); Potassium 4.5 mmol/L (3.4-5.1); Sodium 135 mmol/L (137-145); Total Protein 7.7 g/dL (6.3-8.2)
[2025-09-18 08:00] VITALS: BP 118/61; PULSE 117; RESP 18; TEMP 36.3; O2SAT 97
[2025-09-18 08:05] VITALS: O2SAT 92
--- NOTE | 2025-09-18 08:07 | P.PN_ITS ---
Subjective Subjective Date Patient Seen: 09/18/25 Time Patient Seen: 08:07 Interval history: Feeling better stronger already. Urine has cleared. Trying to figure out his next steps to infuse the antibiotics at home Apparently something was not right with his PICC line which was removed Vital signs have been okay otherwise. Blood pressure little bit on the borderline high side. Tachycardia persists which is longstanding for him Exam Vital Signs (past 8 hours): Oxygen Delivery Method Room Air Oxygen Flow Rate 0 Objective Labs 09/18/25 05:35 09/18/25 05:35 Labs: Laboratory Results - last 24 hr 09/18/25 05:35 WBC 5.7 RBC 3.47 L Hgb 10.6 L Hct 32.4 L MCV 93.3 MCH 30.5 MCHC 32.7 RDW 18.0 H Plt Count 141 L Neut % (Auto) 67.3 Lymph % (Auto) 17.2 L [place] % (Auto) 9.1 Eos % (Auto) 5.7 H Baso % (Auto) 0.7 Neut # (Auto) 3800 Lymph # (Auto) 1000 L [place] # (Auto) 500 Eos # (Auto) 300 Baso # (Auto) 0 Sodium 135 L Potassium 4.5 Chloride 98 Carbon Dioxide 30 BUN 18 Creatinine 1.49 H Estimated GFR 50 L BUN/Creatinine Ratio 12.1 Glucose 127 H Calcium 9.3 Total Bilirubin 1.0 AST 34 ALT 28 Alkaline Phosphatase 146 H Total Protein 7.7 Albumin 3.9 Globulin 3.8 Albumin/Globulin Ratio 1.0 PFSH Medical History Uncomplicated opioid dependence H/O adenomatous polyp of colon Chronic indwelling Montoya catheter Oxygen dependent BMI 50.0-59.9, adult (08/2024) Sepsis (06/2023) Suprapubic catheter dysfunction Sinus tachycardia Chronic renal failure, stage 3a Acquired buried penis Urinary retention Urinary incontinence Iron deficiency Polyneuropathy, unspecified Anemia of chronic disease Mixed hyperlipidemia Eczema (~1996) Restless leg syndrome (~2013) Tinnitus (~1972) Recurrent sinusitis (~2007) Frequent UTI (~2017) Pancreatitis (~1995) Obstructive sleep apnea of adult (~2013) History of kidney stones Phimosis Lower urinary tract symptoms History of prostate cancer (~2016) Chronic venous insufficiency (04/10/16) Restrictive lung disease (08/16/15) Primary insomnia (08/16/15) Morbid obesity (08/16/15) 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 Resistant UTI in the setting of chronic suprapubic catheter. Growing Pseudomonas resistant to all oral antibiotics and several parental antibiotics. Does seem to be clinically responding to meropenem despite the sensitivity suggesting it was only intermediately sensitive Need to figure out how to get patient antibiotics at home I would plan to treat him for 10 days and he began on therapy on Thursday the , so he will need another week after today Patient's other issues including his obesity resulting in his restrictive lung disease and hypoventilation syndrome his hyperlipidemia his sleep apnea etcetera seems stable Basically if we can figure out the IV antibiotic issue we can discharge him, so that his last dose of antibiotics would be at the end of the day September 24 Time-Based Coding :: [TOTAL MINUTES] spent with patient and on the chart (including review of chart, obtaining history, exam, reviewing outside data, placing orders, documenting exam and treatment plan, and counseling patient) on [DATE]. Quality VTE Deep Vein Thrombosis/Pulmonary Embolism Present on Admission: No [facility] PROFEE Signal Maintenance Technician Document charge(s): Yes Charge Codes Subsequent inpatient/observation care: [id number]
[2025-09-18] MEDS: POTASSIUM CHLORIDE 20 MEQ TAB 40 MEQ PO ×2 (09:19→17:06)
[2025-09-18] MEDS: MELOXICAM 7.5 MG TABLET PO (09:21)
[2025-09-18] MEDS: TORSEMIDE 10 MG TABLET 20 MG PO ×2 (09:21→20:58)
[2025-09-18] MEDS: ENOXAPARIN 40 MG/0.4 ML SYRINGE SUBCUT ×2 (09:22→20:57)
[2025-09-18] MEDS: PANTOPRAZOLE DR 40 MG TABLET PO (09:22)
[2025-09-18] MEDS: FLUCONAZOLE 100 MG TABLET 150 MG PO (09:28)
--- NOTE | 2025-09-18 09:52 | DI.RAD.S_ITS ---
PROCEDURE: XR CHEST FOR PICC 1V INDICATIONS: line placement COMPARISON: , , XR CHEST FOR PICC 1V, 09/16/2025, 13:15. FINDINGS: PICC was placed by the intravenous therapy team from the left side. Fluoroscopic spot film demonstrates the tip of PICC projecting to the area of proximal SVC. IMPRESSION: Tip of PICC projects to the area of proximal SVC. Dictated by: Julio Rodriguez M.D. on 09/18/2025 at 10:36 Approved by: Julio Rodriguez M.D. on 09/18/2025 at 10:37
[2025-09-18] MEDS: DICLOFENAC 1% GEL 100 GM 1 APPLIC TOP ×3 (10:43→20:56)
--- NOTE | 2025-09-18 13:56 | CM.DPC ---
DCP Home Infusion Cont: Per MD, pt had PICC placed on Thu but by Thursday PICC was not secure and had to be pulled so MD placed new PICC placement orders and anticipates pt to d/c home once PICC and home infusion secured. Per billboard mechanic, PICC was able to be replaced this AM. VALERI called Gopi at [facility] and updated on referral sent this weekend and requested urgent review to run pt's insurance for coverage and likely d/c today vs tomorrow. [facility] was able to check pt's coverage and called and spoke directly to him and pt is agreeable with d/c to home and [facility] RN to meet him in the home tomorrow Tu09/19 at 1500 to provide teach and supplies. VALERI sent MD orders, PICC insertion note, and cultures to Gopi at [facility] to review. He confirms they have what they need to start pt on service tomorrow. Updated MD who is agreeable to discharge the pt in the morning to be home before 1500 for [facility] teach. Made [facility] referral for RN for PICC management and F2F completed but not sent. Lisa Graf, TIMBER TRIMMER
[2025-09-18 19:00] VITALS: O2SAT 92
[2025-09-18 20:00] VITALS: BP 123/55; PULSE 110; RESP 20; TEMP 36.2; O2SAT 93
[2025-09-18] MEDS: LIDOCAINE 5% PATCH 2 EACH TOP (20:56)
[2025-09-18] MEDS: SODIUM CHLORIDE 0.9% FLUSH 10 ML IV (20:59)
[2025-09-19] MEDS: CYCLOBENZAPRINE 10 MG TABLET PO (06:08)
[2025-09-19] MEDS: MEROPENEM 2 GM in SODIUM CHLORIDE 0.9% 100 ML IV (06:09)
[2025-09-19 07:00] VITALS: BP 164/70; PULSE 79; RESP 17; TEMP 36.3; O2SAT 95
--- NOTE | 2025-09-19 07:41 | P.DS_ITS ---
History of Present Illness History of Present Illness Date Patient Seen: 09/19/25 Time Patient Seen: 07:41 Chief complaint: Sent by Phys; IV antibiotic? Narrative: Patient is a 69-year-old male who I am cross covering for Dr. Goldstein who apparently recently saw urologist for not feeling well. He has been increasingly weak. And urine had turned blue. Has a suprapubic catheter which he has had difficulty with chronic infections. He was started on antibiotics and cultured he would developed Pseudomonas in his urine. He was not responding to treatment and was increasingly weak. Had a fall. No complications from that. It was a gentle fall. But he has been increasingly weak. Patient presented with no fever but was tachycardic low blood pressure. Was given aggressive fluid management in the emergency room. Recently had his catheter changed. There was no other significant new changes or complaints. He has not had any appetite. Just mostly been sleeping. He denies any fevers chills nausea vomiting although he has felt like he has had decreased appetite. He has had no abdominal pain. No chest pain. No shortness of breath. Patient has had no chest pain. Apparently had a recent workup for coronary artery disease which was negative. His last echo showed a normal ejection fraction but he is on torsemide for what he believes is congestive heart failure. Mostly swelling in his ankles. There was no other change. Has had some issues with potassium. Otherwise no changes or complaints. He has not had any diarrhea. Or other changes. {from Dr. Quiñonez's H&P 09/15/2025} Discharge Providers Provider Date of admission: 09/15/25 17:19 Discharge Date: 09/19/25 Primary care physician: Vince Goldstein MD Consults: 09/15/25 19:06 Consult to Discharge Planning Routine Comment: home iv therapy Discharge provider: Vince Goldstein MD Summary Hospital Course Discharge Diagnosis: 1. UTI with resistant Pseudomonas species 2. Chronic indwelling suprapubic catheter 3. Morbid/class 3 obesity with BMI 50-59.9 4. Obesity hypoventilation syndrome 5. Restrictive lung disease secondary to obesity 6. Anemia of chronic disease 7. Obstructive sleep apnea of the adult 8. Chronic renal failure stage 3 a Hospital Course: As above patient was admitted to the hospital with evidence of early sepsis. He was treated appropriately with antibiotic therapy based on his outpatient urine cultures and fluid resuscitation. With this his vital signs improved and patient's overall clinical picture improved significantly within the first 12-24 hours PICC line was placed but had to be replaced. Options were discussed with patient for continued parental antibiotic therapy which is required given the sensitivities of his particular Pseudomonas organism. In the end patient was felt to be stable for discharge with home infusion of meropenem which have been initiated upon admission to the hospital and seem to be effective in controlling his infection. He will need to complete a course of antibiotics through the 24 of September. Referral to Infectious Disease also was made as this will likely become an active issue moving forward in the future Patient's other medical issues including his sleep apnea obesity hypoventilation etcetera were stable. He continued to use his BiPAP while here at the hospital Status at Discharge Cognitive/behavioral status at discharge: at baseline, oriented Functional status at discharge: uses cane/walker Overall status at discharge: patient is progressing back to baseline Time Spent with Patient Time spent: Greater than 30 minutes Exam Vital Signs (past 8 hours): Oxygen Delivery Method Room Air,BiPAP Oxygen Flow Rate 0 Objective Labs 09/18/25 05:35 09/18/25 05:35 [facility] Medical History Uncomplicated opioid dependence H/O adenomatous polyp of colon Chronic indwelling Montoya catheter Oxygen dependent BMI 50.0-59.9, adult (08/2024) Sepsis (06/2023) Suprapubic catheter dysfunction Sinus tachycardia Chronic renal failure, stage 3a Acquired buried penis Urinary retention Urinary incontinence Iron deficiency Polyneuropathy, unspecified Anemia of chronic disease Mixed hyperlipidemia Eczema (~1996) Restless leg syndrome (~2013) Tinnitus (~1972) Recurrent sinusitis (~2007) Frequent UTI (~2017) Pancreatitis (~1995) Obstructive sleep apnea of adult (~2013) History of kidney stones Phimosis Lower urinary tract symptoms History of prostate cancer (~2016) Chronic venous insufficiency (04/10/16) Restrictive lung disease (08/16/15) Primary insomnia (08/16/15) Morbid obesity (08/16/15) 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 Last dose should be given on September 24, 2025. Patient also referred to infectious disease at [facility] Discharge Plan Discharge Plan Patient Disposition: Home Discharge orders & Medications Prescriptions: New citric [id number] carb 1,980.6 mg-59.4 mg-980.4mg/30mL Solution 30 ml irrigation TID Qty: 900 0RF meropenem 2 gram recon soln 2 g IV Q8H 7 Days Continued (DME) Microchamber Spacer See Rx Instructions .Route Qty: 1 0RF Rx Instructions: As directed (DME) Disabled Parking Permit See Rx Instructions .ROUTE .MEDSUPPLY Qty: 1 0RF Rx Instructions: Patient qualifies for disabled parking as per the attached form. duloxetine 30 mg capsule,delayed release(DR/EC) 30 mg PO DAILY Qty: 90 3RF omeprazole 40 mg capsule,delayed release(DR/EC) 40 mg PO DAILY Qty: 90 3RF meloxicam 7.5 mg tablet 7.5 mg PO DAILY Qty: 90 3RF torsemide 20 mg tablet 20 mg PO BID Qty: 60 4RF Rx Instructions: take in am, and again at noon/early afternoon (DME) Raised Toilet Seat See Rx Instructions .Route .MEDSUPPLY Qty: 1 0RF Rx Instructions: [facility] albuterol sulfate 90 mcg/actuation HFA aerosol inhaler 2 puff inhalation Q6H PRN (Reason: shortness of breath or wheezing) Qty: 8.5 6RF nystatin 100,000 unit/gram powder 1 applic topical TID Qty: 60 3RF fluconazole 150 mg tablet 150 mg PO Q OTHER DAY Qty: 10 0RF ropinirole 2 mg tablet 2 mg PO BEDTIME Rx Instructions: 2-3 hrs before bedtime. trazodone 50 mg tablet 50 mg PO BEDTIME Rx Instructions: 2-3 hrs before bed ferrous sulfate 325 mg (65 mg iron) tablet 65 mg PO DAILY oxycodone 10 mg tablet 10 mg PO Q6H MDD 40mg (4 tabs) PRN (Reason: pain in back) Qty: 60 0RF cyclobenzaprine 10 mg tablet 10 mg PO TID PRN (Reason: muscle spasm) Qty: 30 0RF potassium chloride 20 mEq tablet,ER particles/crystals 40 meq PO BID Qty: 360 3RF Rx Instructions: Take with meals Discontinued cefuroxime axetil 500 mg tablet 500 mg PO BID 14 Days Qty: 28 2RF Follow up/Referrals: Jacob More DO [Physician, Urology] - 2 Weeks Vince Goldstein MD [Primary Care Provider, Internal Medicine] Other Ambulatory Orders: Basic Metabolic Panel (Routine) Timeframe: 1 Week Facility: [facility] - Location: Laboratory Ordered By: Vince Goldstein Discharge Health Status Multidrug resistant organism: Other Diet/Activity/Treatments Diet: Diet as Tolerated Catheter: Suprapubic Visit Report/Discharge Packet Instructions: DI for Urinary Tract Infection (UTI), Peripherally Inserted Central Catheter Stand Alone Forms: Patient Portal/API, Stroke Signs & Symptoms Discharge Data Primary Care Provider: Vince Goldstein Quality VTE Deep Vein Thrombosis/Pulmonary Embolism Present on Admission: No IH PROFEE Charge Codes Discharge inpatient/observation: [id number]
[2025-09-19] MEDS: TORSEMIDE 10 MG TABLET 20 MG PO (09:05)
[2025-09-19] MEDS: POTASSIUM CHLORIDE 20 MEQ TAB 40 MEQ PO (09:05)
[2025-09-19] MEDS: PANTOPRAZOLE DR 40 MG TABLET PO (09:06)
[2025-09-19] MEDS: MELOXICAM 7.5 MG TABLET PO (09:06)
[2025-09-19] MEDS: DICLOFENAC 1% GEL 100 GM 1 APPLIC TOP (09:06)
[2025-09-19] MEDS: ENOXAPARIN 40 MG/0.4 ML SYRINGE SUBCUT (09:07)
[2025-09-19] MEDS: SODIUM CHLORIDE 0.9% FLUSH 10 ML IV (09:14)
--- NOTE | 2025-09-19 11:50 | CM.DPNOTE ---
DCP Continued: Reviewed EMR and team rounds for pt?s medical status. Per [place], pt to discharge home with [facility] to continue Q8H mertapenem and [facility] to manage PICC. SENIOR UX DEVELOPER sent MD orders to [facility] to process referral. SENIOR UX DEVELOPER to send dc summary to [facility] and [facility] when available. SENIOR UX DEVELOPER reviewed above with pt, verbalized agreement with dc plans, eager to dc home in time for IV med teaching with [facility]. Plan: Anticipating discharge home for home infusions and home health, pt will transport self home.CM Team will continue to follow for coordination of discharge plans. SOULEYMANE Henderson
== END 2025-09-19 11:48 | disposition home health service (06) | DRG 698 ==
LOC: ED 15:54 → AC 17:20
PROVIDERS: Admitting Provider Family Medicine; Emergency Provider Emergency Medicine; PCP Internal Medicine; Referring Provider Emergency Medicine; Visit Provider Internal Medicine
DX: T83.518A Infection and inflammatory reaction due to other urinary catheter, initial encounter (principal); A41.9 Sepsis, unspecified organism; N39.0 Urinary tract infection, site not specified; Z16.24 Resistance to multiple antibiotics; Z68.43 Body mass index [BMI] 50.0-59.9, adult; E66.2 Morbid (severe) obesity with alveolar hypoventilation; I50.9 Heart failure, unspecified; D63.1 Anemia in chronic kidney disease; J98.4 Other disorders of lung; M19.90 Unspecified osteoarthritis, unspecified site; M54.9 Dorsalgia, unspecified; B96.5 Pseudomonas (aeruginosa) (mallei) (pseudomallei) as the cause of diseases classified elsewhere; E66.813 Obesity, class 3; N18.31 Chronic kidney disease, stage 3a; G25.81 Restless legs syndrome; Y73.1 Therapeutic (nonsurgical) and rehabilitative gastroenterology and urology devices associated with adverse incidents; Z66 Do not resuscitate
CPT/HCPCS: 36415; 36569; 80048; 80053; 83605; 85025; 87040; 96360; 99232; 99239; 99284; J1642; J1650; J2185; J7030; J7040; J7050

== ENCOUNTER → 2025-09-25 13:48 | Outpatient (CLI) | payer MEDICARE, MEDICAID, SELFPAY ==
[2025-09-15 18:43] VITALS: BMI 51.0
== END ==
PROVIDERS: PCP Internal Medicine; Referring Provider Urology; Visit Provider Urology
DX: N39.0 Urinary tract infection, site not specified (principal); B96.5 Pseudomonas (aeruginosa) (mallei) (pseudomallei) as the cause of diseases classified elsewhere; A41.9 Sepsis, unspecified organism; Z93.59 Other cystostomy status
CPT/HCPCS: 87086